=== PATIENT | female | born 1975 | race Hispanic/Latino ===

== ENCOUNTER 2021-06-23 21:47 | Inpatient (IN) | payer BC ==
--- OUTSIDE RECORDS SUMMARY | 2021-06-23 21:53 | XMS REPORT | Continuity of Care Document ---
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 [facility] 18:23:09 19:21:38 [facility] 2021-02-11 2021-02-11 Emergency [facility] [id number] [facility] 17:24:22 17:44:35 Health 2020-12-17 2020-12-17 Letter JULIO Bonner [id number] 00:00:00 00:00:00 (Out) Connie Zhang 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 350.1.13.10 REGIONAL 4.2.7.2.686 MATERNAL [id number] & CHILD 111 [facility] [place]-11-06 2020-11-06 Telephone JULIO Bonner [id number] 00:00:00 00:00:00 Connie O 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 350.1.13.10 [facility] 4.2.7.2.686 MATERNAL [id number] & CHILD 111 [facility] [place] 2020-03-06 2020-03-06 Emergency ANNA ROMAN [facility] [id number] [place] 00:00:00 00:00:[address] Results Test Description Test Time Test Comments Results Result Comments Source PT/INR 2021-05-25 15:42:00 Test Item Value Reference Range Interpretation Comme nts PT (test code = 5902-2) 15.7 See_Comment H [Au tomated message] The system which ge nerated this result transmit sandy reference range : 11.7 - 14.5 Seconds. T he reference range was not u sed to interpret this result as normal/abnormal . 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: Doc: 1975 Requested By: PUNEET LOPEZ Order Number: [id number] [place] MD: Mee Vincent MeasurementsIntervals [place] Rate: 101 P: CA: 0 QRS: 56QRSD: 112 T: 42QT: 381 QTc: 439 Interpretive StatementsATRIAL FIBRILLATION WITH RAPID VENTRICULAR RESPONSELOW QRS VOLTAGE IN PRECORDIAL LEADS [QRS DEFLECTION < 1.0 mVIN CHEST LEADS]MODERATE INTRAVENTRICULAR CONDUCTION DELAY [110+ ms QRS DURATION]NONSPECIFIC T-WAVE ABNORMALITYABNORMAL RHYTHM ECGReviewed by Electronically Signed On 05-25-2021 20:02:19CDT by [facility] Metabolic [id number] 05:32:00 Test Item Value Reference Range Interpretation Comments Sodium (test code = 141 mmol/L 668-976 4004-2) Potassium (test code = 3.8 mmol/L 3.5-5.1 2823-3) Chloride (test code = 93 mmol/L 98-107 L 2075-0) CO2 (test code = 45 mmol/L 21-31 H 71017407) Urea Nitrogen (test 8.0 mg/dL 7-25 code = 68635786) Creatinine (test code = 0.6 mg/dL 0.6-1.2 19198130) Glucose (test code = 98 mg/dL 70-110 85799745) Calcium (test code = 9.1 mg/dL 8.6-10.3 09926777) eGFR If Am >120 See_Comment [Automat ed message] (test code = 40918081) The s ystem which generated this result transmit sandy reference range : >=90 mL/min/1.7 3 m2. The reference r will was not used to interpret this result as normal/abnormal . eGFR If non- Am 111 See_Comment [Aut omated message] (test code = 18344531) The s ystem which generated this result transmit sandy reference range : >=90 mL/min/1.7 3 m2. The reference r will was not used to interpret this result as normal/abnormal . Anion Gap (test code = 3 mmol/L 5-16 L 73032580) Lab Interpretation Abnormal (test code = 46003-2) [facility]80[facility] 05:32:00 Test Item Value Reference Range Interpretation Comments Magnesium (test code = 44887397) 2.0 mg/dL 1.9-2.7 Lab Interpretation (test code = Normal 28662-8) [facility]/Vede0939-58-86 05:07:00 Test Item Value Reference Range Interpretation Comments WBC (test code = 6690-2) 7.0 K/uL 4.5-11 RBC (test code = 789-8) 4.31 See_Comment [Au tomated message] The system [employer] generated this result transmit sandy reference range : 4.20 - 5.40 M/u L. The reference r will was not used to interpret this result as normal/abnormal . Hemoglobin (test code = 8.3 g/dL 12-16 L 718-7) Hematocrit (test code = 34.3 % 37-47 L 4544-3) MCV (test code = 787-2) 79.6 fL 82-92 L MCH (test code = 785-6) 19.3 pg 27-32 L MCHC (test code = 786-4) 24.2 g/dL 32-36 L RDW (test code = 54.8 fL 36.4-46.3 H 78410-8) Platelet (test code = 294 K/uL 150-400 777-3) Mean Platelet Volume 10.4 fL 9.4-12.4 (test code = 99056-7) Percent NRBC (test code 0.0 % = 69709095) Neutrophil (test code = 71.0 % 34-70 H 770-8) Lymphs (test code = 15.9 % 20-50 L 736-9) Monocytes (test code = 10.3 % 5-12 5905-5) Eos (test code = 713-8) 1.6 % 0.7-5 Basos (test code = 0.9 % 0.1-1.2 706-2) Immature Granulocytes 0.3 % 0-0.5 (test code = 57178120) Neutrophils (Absolute) 4.97 K/uL 1.56-6.13 (test code = 48121072) Lymphs (Absolute) (test 1.11 K/uL 1.18-3.74 L code = 33981380) Monocytes(Absolute) 0.72 K/uL 0.24-0.36 H (test code = 30424942) Eos (Absolute) (test 0.11 K/uL 0.04-0.36 code = 14905521) Baso (Absolute) (test 0.06 K/uL 0.01-0.08 code = 92045771) Immature Grans (Abs) 0.02 K/uL 0-0.03 (test code = 57585959) Absolute NRBC (test code 0.00 K/uL = 33260839) Lab Interpretation (test Abnormal code = 33156-7) [facility] HospitalPregnancy Yptq6184-56-22 16:53:00 Test Item Value Reference Range Interpretation Comments (test code = 77563870) Negative Negative Lab Interpretation (test code = Normal 54152-8) [facility] HospitalPTT - every 6 hours x 24 krsel4283-94-02 16:09:00 Test Item Value Reference Range Interpretation Comments PTT (test code = 45.1 See_Comment H The recomme nded 38087578) therapuetic ran ge is an APTT 61-103 seconds which corresponds to 0.3-0.7 anti Xa u/ml. [Automated mess age] The system [employer] generated this result transmitted ref erence range: 23.9 - 3 6.0 Seconds. The reference range was not used to int erpret this result as normal/abnormal . Lab Interpretation (test Abnormal code = 11772-4) [facility] LUNG PERFUSION IMAGING [id number] 18:46:40IMPRESSION: 1. Scan findings strongly suggest that acute pulmonary embolic diseaseis not present. Probability according to PIOPED criteria cannot beapplied because of the limited projections obtained. A concurrentventilation study would not alter impression that acute PE is notpresent.2. Enlarged cardiac silhouette. Signed By: Crissy Dupree MD, 05/22/2021 6:46 PM Interface, Rad/Mammog In - 05/22/2021 6:51 PM CDT PERFUSION LUNG SCAN. REASONFOR EXAM PROVIDED WITH ORDER: PE suspected, low/intermediateprobability, positive D-dimer COMPARISONSTUDIES: DISCUSSION: No ventilation images were obtained because the study wasperformed and the patient room. The patient has a large body habitus andcould not be moved to an imaging table.Perfusion images of the lungs in the anterior and anterior obliqueprojections were obtained following intravenousadministration of 6 mCiof Tc-99m MAA. Distribution of tracer appears physiologic throughout the lungs. Thereare no segmental perfusion defects of any size. The contours of thelungs are well demarcated.The cardiac silhouette is enlarged.IMPRESSIONIMPRESSION: 1. Scan findings strongly suggest that acute pulmonary embolic diseaseis not present. Probability according to PIOPED criteria cannot beapplied because of the limited projections obtained. A concurrentventilation study would not alter impression that acute PE is notpresent.2. Enlarged cardiac silhouette.Signed By: Crissy Dupree MD, 05/22/2021 6:46 [facility]XccvlkC-Siygy0213-89-06 19:13:00 Test Item Value Reference Range Interpretation Comments D-Dimer (test code = 3.22 See_Comment H Values of 32395429) quantitative D- Dimer less than 0.40 ug/mL FEU have been reported to be associated with a low probability of deep vein thrombosis/pulm onary embolism. This test alone should no t be used to rule ou t DVT/PE. [Automa sandy message] The sy stem which generated this result transmit sandy reference range : 0.27 - 0.48 ug/mL FE U. The reference range was not used to int erpret this result as normal/abnormal . Lab Interpretation (test Abnormal code = 29807-9) [facility] HospitalCpxexjXchsuwuadg3747-88-84 18:55:00 Test Item Value Reference Range Interpretation Comments Color (test code = Yellow Colorless, Straw, 41983056) Yellow Clarity (test code = Clear Clear 79848243) Spec [place], Ur (test 1.012 1.001-1.035 code = 04521125) pH, Ur (test code = 6.0 5.0-8.0 11880743) Protein, Ur (test code Negative Negative mg/dL = 11319694) Glucose, Ur (test code Negative Negative mg/dL = 81121791) Ketone, Ur (test code = Negative Negative mg/dL 75051669) Bilirubin, Ur (test Negative Negative mg/dL code = 19861476) Nitrite, Ur (test code Negative Negative = 25330627) Leukocyte (test code = Negative Negative mg/dL 03452144) Blood, Ur (test code = 1+ Negative mg/dL A 85541655) RBC (test code = 5 See_Comment H [Automated message] 89527377) The system [employer] generated this result transmit sandy reference range : 0 - 4 /HPF. The reference range was not used to interpret this result as normal/abnormal . WBC (test code = 1 See_Comment [Automated message] 78430650) The system [employer] generated this result transmit sandy reference range : 0 - 5 /HPF. The reference range was not used to interpret this result as normal/abnormal . Epithelial Cell (test <1 See_Comment [Auto mated message] code = 79416928) The system which generated this result transmit sandy reference range : <=1 /HPF. The refer ence range was not u sed to interpret th is result as normal/abnormal . Mucous (test code = Present None seen /HPF A 72141329) Urobilinogen, Ur (test <1.0 See_Comment [Aut omated message] code = 92495970) The system which generated this result transmit sandy reference range : <1.0 EU/dL. The reference range was not used to interpret this result as normal/abnormal . 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: [id number]: 1975 Requested By: PUNEET LOPEZ Order Number: [id number] Reading MD: Mee Vincent MeasurementsIntervals [place] Rate: 115 P: CA: 0 QRS: 51QRSD: 116 T: 0QT: 169 QTc: 237 Interpretive StatementsATRIAL FLUTTER /TACHYCARDIA WITH RAPID VENTRICULAR RESPONSELOW QRS VOLTAGE IN PRECORDIAL LEADSMODERATE INTRAVENTRICULAR CONDUCTION DELAYNONSPECIFIC T-WAVE ABNORMALITYABNORMAL RHYTHM ECGReviewed by Electronically Signed On 05-22-2021 9:24:28 CDT by Mee LizDepartment of [facility]PhiladelphiaTRANSTHORACIC ECHO (TTE)2021-05-21 10:14:00TRANSTHORACIC ECHO (TTE) Transthoracic Echo Report GRAZYNA GOMEZ Age: 46 Gender:F : 1975 Exam Date: 05/21/2021 06:37 ExamLocation: [facility] Ordering Phys: PUNEET LOPEZ Referring Phys: Reading Phys: Mee Vincent MD Fellow Phys: Fellow Phys: Recovery Engineer: Taina Rene Reason For Exam: Indications: new afib, Other specified conduction disorders ICD-9 Codes: I45.89 Exam Type: TRANSTHORACIC ECHO (TTE) Procedure CPT: 65054 Addtional CPT: Ht (in): 67 BSA: 3.14 HR: 130 Rhythm: Atrial fibrillation Wt (lb): 423 BP: 111 / 68 Technical Quality: History: MEASUREMENTS Normal ranges based on 95% confidence intervals for adults, some normal patients may fall outside of this range especially when indexing for BSA 2D ECHO LV Diastolic Diameter PLAX 5.3 cm 4.2-5.8 (M) / 3.8-5.2 (F) LV Systolic Diameter PLAX 4.1 cm 2.5-4.0 (M) / 2.2-3.5 (F) LV Fractional Shortening PLAX 22.2 % IVS Diastolic Thickness 1.6 cm 0.6- 1.0 (M) / 0.6-0.9 (F) LVPW Diastolic Thickness 1.2 cm 0.6- 1.0 (M) / 0.6-0.9 (F) LV Relative Wall Thickness 0.53 <= 0.42 LVOT Diameter 2.3 cm Aortic Root Diameter 3.4 cm LA Systolic Diameter LX 3.7 cm LA AoRatio 1.1 LV Mass by linear method 316 g LV Mass by linear method Index 101 g/m2 FINDINGS Left Ventricle Normal left ventricular size. Mild to moderate concentric left ventricular hypertrophy. Grossly, LVEF appears to be around 40-50%. Poor endocardial visualization. Flattened septum in systole and diastole consistent with right ventricle pressure and volume overload. Cannot grade LV diastology due toatrial fibrillation. Right Ventricle Right ventricle not well visualized. Grossly appears dilated Right Atrium Right atrium not well visualized. Left Atrium Left atrium not well visualized. Grossly appears dilated IAS Mitral Valve Mitral leaflets mildly thickened. Aortic Valve Aorticvalve not well visualized. Tricuspid Valve Tricuspid valve not well visualized. Pulmonic ValvePulmonic valve not well visualized. Pericardium Minimal pericardial effusion (normal variant). A raimundo Normal size aortic root. IVC RA pressure is 5-10 mmHg. CONCLUSIONS Echocardiographic contrast was administered for better endocardial visualization. Normal left ventricular size. Mild to moderate concentric left ventricular hypertrophy. Grossly, LVEF appears to be around 40-50%. Poor endocardial visualization. Flattened septum in systole and diastole consistent with right ventricle pressure and volume overload. Cannot grade LV diastology due to atrial fibrillation. Right ventricle not well visualized. Grossly appears dilated. Compared to prior echo LVEF decreased and patient is now in atrial fibrillation. Both studies are technically difficult due to patient body habitus. Mee Vincent MD (Electronically Signed) Final Date: 21 May 2021 10:14 2D ECHO LV Diastolic Diameter PLAX 5.3 cm 4.2-5.8 (M) / 3.8-5.2 (F) LV Systolic Diameter PLAX 4.1 cm 2.5-4.0 (M) / 2.2-3.5 (F) LV Fractional Shortening PLAX 22.2 % IVS Diastolic Thickness 1.6 cm 0.6-1.0 (M) / 0.6-0.9 (F) LVPW Diastolic Thickness 1.2 cm 0.6-1.0 (M) / 0.6-0.9 (F) LV Relative Wall Thickness 0.53 <= 0.42 LVOT Diameter 2.3 cm Aortic Root Diameter 3.4 cm LA SystolicDiameter LX 3.7 cm LA Ao Ratio 1.1 LV Mass by linear method 316 g LV Mass by linear method Index 101 g/m2 [facility] [id number] 08:01:00 Test Item Value Reference Range Interpretation Comments Hemoglobin A1c (test code = 4548-4) 5.9 % 4.3-6.1 Estimated Average Glucose (test 123 mg/dL 70-110 H code = 02722673) Lab Interpretation (test code = Abnormal 25286-6) [facility] [id number] 06:23:00 Test Item Value Reference Range Interpretation Comments Cholesterol (test 69.0 mg/dL See_Comment [Automate d message] code = 2093-3) The system [facility] generated this result transmit sandy reference range : <=200.0. The reference range was not used to interpret this result as normal/abnormal . Triglyceride (test 70 mg/dL <150 code = 33875020) HDL (test code = 18.0 mg/dL See Reference 5-9) Range Narrative. LDL (test code = 37 mg/dL <100 Optimal: < 100.0 50976-8) mg/dLNear Optim al: 120-129 mg/dLBorderline : 130-159 mg/dLHi gh: 160-189 mg/dLVe ry High: >=190 mg/ dL Patient Fasting? Yes (test code = 16095561) [facility] HospitalCoronavirus, CoVID-19, [id number] 23:30:00 Test Item Value Reference Range Interpretation Comments COVID-19 Not Detected Not Detected INTERPRETATION: (SARS-COV-2) (test No detect able code = 16727-3) levels of SARS-CoV-2 Coronavirus (COVID-19) were present in this patient's sampl e by this test. A not detected result does not exclude the possibility of active infectio n with this virus due to other factors that ma y affect the results such as a poorly collected sample, viral titers below th e limit of detection of th e assay, and the infrequent possibility of inhibitors in the sample. Thi s result should b e interpreted in conjunction wit h clinical, radiographic, and other laboratory findings and should not be used as the danisha e indicator of active infectio n with SARS-CoV-2 Coronavirus (COVID-19). MARIO (test code = COMMENT: This MARIO) Slated Aptima SARS-CoV-2 molecular diagnostic assay utilizes Curator Of Manuscripts Mediated Amplification (TMA) technology to rapidly detect the SARS-CoV-2 (COVID-19) virus from respiratory samples. In accordance with the FDA's guidance document "Policy for Diagnostic Tests for Coronavirus Disease-2019 during the Public Health Emergency", this test was developed, and its performance characteristics were verified by the [facility] molecular diagnostics laboratory and is authorized for clinical diagnostic use. This laboratory is certified under the Clinical Laboratory Improvement Amendments (CLIA) as qualified to perform high complexity clinical laboratory testing. Lab Interpretation Normal (test code = 84460-5) [facility] [id number] 17:27:00 Test Item Value Reference Range Interpretation Comments Free T4 (test code = 19918676) 1.04 ng/dl 0.64-1.42 Lab Interpretation (test code = Normal 88056-0) [facility] HospitalOcvjvtPYS6462-35-04 17:25:00 Test Item Value Reference Range Interpretation Comments TSH (test code = 5.13 See_Comment If , please 16193383) see the followi ng reference range s (not verified by lab ): 1st Trimester: 0.05 -3.70 uIU/mL2nd Trime ster: 0.31 -4.35 uIU/ mL3rd Trimester: 0.41 - 5.18 uIU/mL [Automat ed message] The sy stem which generated this result transmit sandy reference range : 0.45 - 5.33 uIU/mL. The reference range was not used to int erpret this result as normal/abnormal . Lab Interpretation (test Normal code = 31042-3) [facility] VantageBeta-hCG, Mkfjkiortpjv5498-22-38 17:14:00 Test Item Value Reference Range Interpretation Comments hCG, Quantitative (test <1.0 See_Comment [Au tomated message] code = 66042505) The system which generated this result transmitted ref erence range: <5.0 mIU /mL. The reference r will was not used to interpret this result as normal/abnor mal. Lab Interpretation (test Normal code = 86234-6) [facility] LocawebB-Type Natriuretic Peptide (BNP)2021-05-20 17:12:00 Test Item Value Reference Range Interpretation Comments B Natriuretic Peptide 173 pg/mL See_Comment H [Auto mated message] (BNP) (test code = The syste m which 71021475) generated this result transmit sandy reference range : <=100. The refe rence range was not u sed to interpret th is result as normal/abnormal . Lab Interpretation (test Abnormal code = 17234-0) [facility] VantageTroponin [id number] 17:11:00 Test Item Value Reference Interpretation Comments Range Troponin I (test <0.03 See_Comment [Automated code = 78020082) message] Th e system which generated this result transmitted reference range : <0.04 ng/mL. Th e reference range was not used to interpret this result as normal/abnormal . MARIO (test code = Serum Troponin I MARIO) result from apparently healthy adults: < 0.04 ng/mL. Elevated Troponin >= 0.04 ng/mL is indicative of myocardial injury. Results should be interpreted in conjunction with other diagnostic tests and clinical information. When serial samples are obtained and troponin is considered in the clinical context of each patient, acute events such as myocardial infarction (IA) may be distinguished from other conditions causing myocardial injury. The reference cut off for apparently healthy pediatric population is not established, and therefore the pediatric troponin I result should be interpreted with caution. Heterophile antibodies, e.g. HAMA, in patient samples may cause erroneous results. Patients who have been regularly exposed to animals or have received immunoglobulin products may present with such interfering antibodies. Fibrin clot in specimen may cause falsely elevated values. Lab Interpretation Normal (test code = 30013-7) [facility]ST 1 [id number] 16:25:32IMPRESSION: Evidence of pulmonary vascular congestion. Mild to moderate left pleuraleffusion noted. T hese appear more prominent since prior study. Signed By: Francis Thompson MD, 05/20/2021 4:25 PM Interface,Rad/Mammog In - 05/20/2021 5:27 PM CDT EXAM: XRAY CHEST 1 VIEWINDICATION: cpCOMPARISON: 02/11/2021 FINDINGS: 1 view of the chest. TUBES and LINES: None.LUNGS: Lungs are low volume. Evidence of pulmonary vascular congestion.Partial accentuation from low lung volume.Increase opacification in the left lower lung may represent underlyingatelectasis or pleural effusion or underlying concomitant pneumonia isnot excludedPLEURA: No pneumothorax. Mild to moderate left pleural effusionHEART AND MEDIASTINUM: Mild prominence of the cardiac silhouetteispartly due to magnification from AP projection radiograph. Unremarkablevisualized aorta.BONES AND SOFT TISSUES: No acute osseous lesion. Soft tissues areunremarkable.IMPRESSIONIMPRESSION: Evidence ofpulmonary vascular congestion. Mild to moderate left pleuraleffusion noted. These appear more prominent since prior study.Signed By: Francis Thompson MD, 05/20/2021 4:25 [place] [address] [place] [id number] 15:54:3812 LEAD EKG FOR [facility] Test Date: [id number] Name: GRAZYNA GOMEZ Department: 5520Patient ID: [id number] Room: [facility] 09Gender: F Jumpbasting Machine Operator: [id number]: 1975 Requested By: NATHALIE Carrillo Number: [id number] Reading MD: nathan albert MeasurementsIntervals [place] Rate: 116 P: CA: 0 QRS: 26QRSD: 106 T: -6QT: 325 QTc: 394 Interpretive StatementsATRIAL FLU TTER/TACHYCARDIA WITH RAPID VENTRICULAR RESPONSELOW QRS VOLTAGE IN PRECORDIAL LEADS [QRS DEFLECTION< 1.0 mV IN CHEST LEADS]ABNORMAL RHYTHM ECGElectronically Signed On 05-20-2021 20:27:02 CDT by [facility] POCT TROPONIN I POC docked [id number] 15:42:00 Test Item Value Reference Range Interpretation Comments Troponin POC (test 0.01 ng/mL 0-0.08 Physician code = 75412049) Notified MARIO (test code = MARIO) <0.08 ng/mL Normal>=0.08 ng/mL Positive for Myocardial injuryNote: The >=0.08 ng/mL cTnI is at the 99th percentile of the non-AMI population. Lab Interpretation Normal (test code = 85228-0) [facility] BMP POC docked [id number] 15:36:00 Test Item Value Reference Range Interpretation Comments Sodium POC (test code = 142 mmol/L 136-145 55503429) Potassium POC (test code 3.9 mmol/L 3.5-5.1 = 15940995) Chloride POC (test code 97 mmol/L 98-107 L = 23955734) TCO2 POC (test code = 34 mmol/L 21-32 H Physic preeti Notified 80948034) Urea Nitrogen POC (test 9 mg/dL 7-18 code = 20125116) Glucose POC (test code = 157 mg/dL 74-106 H 85486932) Hemoglobin POC (test 14.3 g/dL 12-16 code = 28117243) Hematocrit POC (test 42.0 % 37-47 code = 20427753) Lab Interpretation (test Abnormal code = 92366-9) [facility] CREATININE POC docked [id number] 15:35:00 Test Item Value Reference Range Interpretation Comments Creatinine POC (test 0.6 mg/dL 0.6-1.3 Physici an Notified code = 46938422) eGFR If non- Am >90 See_Comment [Aut omated message] (test code = 26648344) The [employer] which generated this result transmit sandy reference range : >=90 mL/min/1.7 3 m2. The reference r will was not used to interpret this result as normal/abnormal . eGFR If Am (test >90 See_Comment [A utomated message] code = 45876468) The system which generated this result transmit sandy reference range : >=90 mL/min/1.7 3 m2. The reference r will was not used to interpret this result as normal/abnormal . Lab Interpretation (test Normal code = 78499-1) [facility] VBG POC docked [id number] 15:35:00 Test Item Value Reference Range Interpretation Comments pH, Ace POC (test code 7.40 7.33-7.43 = 92762611) pCO2,Ace POC (test code 53.3 See_Comment H [Au tomated = 35182901) message] The sy stem which generated this result transmitted reference range : 38 - 50 mmHg. The reference range was not used to interpret this result as normal/abnormal . PO2, Venous POC (BKR) 49 See_Comment L [Auto mated (test code = 87660419) messa ] The system which generated this result transmitted reference range : 50 - 75 mm Hg. The reference range was not used to interpret this result as normal/abnormal . Ionized Calcium POC 1.15 mmol/L 1.15-1.29 (test code = 89892731) HCO3, Ace POC (test 33 mmol/L 22-26 H code = 27308568) TCO2 POC (test code = 34 mmol/L 21-32 H 74108218) Base Excess Ace POC 6 mmol/L (test code = 84395377) Sample Type (test code IVEN Physi hermes Notified = 14420642) % Sat, Ace POC (test 83 % code = 73189371) Lab Interpretation Abnormal (test code = 18201-8) [place] [address] LEAD [id number] 15:23:0612 LEAD EKG FOR [facility] Test Date: 0005-10-92Llx Name: GRAZYNA GOMEZ Department: 5520Patient ID: [id number] Room: Gender: F Jumpbasting Machine Operator: [id number]: 1975 Requested By: NATHALIE Carrillo Number: [id number] Reading MD: nathan albert MeasurementsIntervals [place] Rate: 191 P: CA: 0 QRS: 30QRSD: 97 T: 0QT: 196 QTc: 294 Interpretive StatementsATRIAL FIBRILLATION WI TH RAPID VENTRICULAR RESPONSELOW QRS VOLTAGE IN PRECORDIAL LEADS [QRS DEFLECTION < 1.0 mV IN CHEST LEADS]MODERATE ST DEPRESSION [0.05+ mV ST DEPRESSION]CRITICAL TEST RESULTElectronically Signed On 05-20-2021 15:43:36 CDT by nathan [facility] GLUCOSE POC docked [id number] 13:06:00 Test Item Value Reference Range Interpretation Comments Glucose POC (test code = 08760757) 105 mg/dL 74-106 Lab Interpretation (test code = Normal 43839-2) [facility]az[facility]oAwl[facility]uxk8543-73-45 05:55:00 Test Item Value Reference Range Interpretation Comments Phosphorus (test code = 2777-1) 3.3 mg/dL 2.5-5 Lab Interpretation (test code = Normal 88531-5) [facility] HospitalDifferential, Ijvzdi9470-70-31 10:07:00 Test Item Value Reference Range Interpretation Comments Neutrophil (test code = 21420773) 80.0 % 34-70 H Lymphs (test code = 03482881) 14.0 % 20-50 L Monocytes (test code = 53390890) 6.0 % 5-12 Eos (test code = 96449971) 0.0 % 0.7-5 L Basos (test code = 32863978) 0.0 % 0.1-1.2 L Neutrophils (Absolute) (test code = 7.03 K/uL 1.56-6.13 H 37361896) Lymphs (Absolute) (test code = 1.23 K/uL 1.18-3.74 99693473) Monocytes(Absolute) (test code = 0.53 K/uL 0.24-0.36 H 60977107) Eos (Absolute) (test code = 0.00 K/uL 0.04-0.36 L 77116013) Baso (Absolute) (test code = 0.00 K/uL 0.01-0.08 L 48181681) Large Platelets (test code = 2+ None seen A 52696801) Platelet Clumps (test code = Present None seen A 78280983) Hypochromia (test code = 31437313) 3+ None seen A Ovalocyte (test code = 92298698) 2+ None seen A Stomatocyte (test code = 38845112) 2+ None seen A Cells Counted (test code = 38557903) Lab Interpretation (test code = Abnormal 30162-4) [facility] HospitalComprehensive Metabolic Hioyg8783-02-14 06:36:00 Test Item Value Reference Range Interpretation Comments Sodium (test code = 141 mmol/L 109-717 2568-2) Potassium (test code = 3.8 mmol/L 3.5-5.1 2823-3) Chloride (test code = 98 mmol/L 98-107 2075-0) CO2 (test code = 38 mmol/L 21-31 H 45458796) Glucose (test code = 113 mg/dL 70-110 H 57681108) Calcium (test code = 8.2 mg/dL 8.6-10.3 L 09169449) Urea Nitrogen (test 9.0 mg/dL 7-25 code = 02518428) Creatinine (test code = 0.6 mg/dL 0.6-1.2 34576538) Alkaline Phosphatase 38 U/L 34-104 (test code = 81322258) ALT (test code = 11 U/L 7-52 01338522) AST (test code = 12 U/L 13-39 L 52766578) Total Protein (test 6.8 g/dL 6-8.3 code = 2885-2) eGFR If non- Am >90 See_Comment [Aut omated message] (test code = 95225496) The s [employer] which generated this result transmit sandy reference range : >=90 mL/min/1.7 3 m2. The reference r will was not used to interpret this result as normal/abnormal . Albumin (test code = 3.1 g/dL 3.7-5.3 L 39505-0) Anion Gap (test code = 5 mmol/L 5-16 57413526) Lab Interpretation Abnormal (test code = 60055-0) [facility] HospitalBlood Gas, [id number] 04:33:00 Test Item Value Reference Range Interpretation Comments Temperature (test code 37.0 degree C = 72877090) pH, Venous (test code = 7.36 7.33-7.43 28514671) pCO2, Venous (test code 71.3 See_Comment HH [Au tomated = 46845032) message] The sy stem which generated this result transmitted reference range : 38 - 50 mm Hg. The reference range was not used to interpret this result as normal/abnormal . pO2, Venous (test code 54.8 See_Comment [Aut omated = 03293768) message] The sy stem which generated this result transmitted reference range : 50 - 75 mm Hg. The reference range was not used to interpret this result as normal/abnormal . Base Excess, Venous 13.2 mmol/L -2.5-2.5 H (test code = 03520326) HCO3, Venous (test code 39.2 mmol/L 22-26 H = 45517986) % Sat, Venous (test 86.6 % 60-85 H code = 29520241) Lab Interpretation Abnormal (test code = 30610-3) [facility] HospitalHgb/Vkj9319-81-23 22:29:00 Test Item Value Reference Range Interpretation Comments Hemoglobin (test code = 718-7) 7.5 g/dL 12-16 L Hematocrit (test code = 4544-3) 32.0 % 37-47 L Lab Interpretation (test code = Abnormal 79652-1) [facility] HospitalCrossmatch RBC Units, 1 Qyptt0399-25-01 12:35:00 Test Item Value Reference Range Interpretation Comments RBC UNITS (test code = compatible 95099687) Unit ABO Type (test code = O 90127429) Unit Rh Type (test code = POS 84854518) Product Code (test code = E0336 26057167) Unit Number (test code = [id number] 43604683) Unit Status (test code = transfused 09006615) ISBT Product Code (test code = U1721A76 59317) Blood Type (test code = 59371) 5100 Blood Expiration Date (test 559221428134 code = 51980) [facility] HospitalVitamin [id number] 08:32:00 Test Item Value Reference Range Interpretation Comments Vitamin B12 (test code 351 pg/mL See comment Lucila l: 180-914 = 61588654) pg/mLIntermitte nt: 145-180 pg/mLDeficient: <=145.0 pg/mL [facility] HealthLegionella Antigen, Lmace4829-33-39 08:20:00 Test Item Value Reference Range Interpretation Comments Legionella Ag, Ur (test code = Negative Negative 34617-8) Lab Interpretation (test code = Normal 16696-9) [facility] HospitalStrep Pneumo Ag, Wvgzo6497-04-69 01:40:00 Test Item Value Reference Range Interpretation Comments S. pneumo Ur Antigen (test code = Negative Negative 15965-9) Lab Interpretation (test code = Normal 29522-2) [facility] HospitalTRANSTHORAC[facility] (TTE)2021-02-13 13:02:00TRANSTHORACIC ECHO (TTE) Transthoracic Echo Report GRAZYNA GOMEZ Age: 45 Gender:F : 1975 Exam Date: 02/13/2021 08:08 ExamLocation: [facility] Ordering Phys: MARBELLA ALLAN Referring Phys: [id number] Reading Phys: Mee Vincent MD Fellow Phys: Fellow Phys: Recovery Engineer:Isma Nunez Reason For Exam: Indications: Obstructive sleep apnea, rule out pulmonary hypertension, Other secondary pulmonary hypertension, Morbid (severe) obesity due to excess calories ICD-9 Codes: I27.2 E66.01 Exam Type: TRANSTHORACIC ECHO (TTE) Procedure CPT: 35395 Addtional CPT: Ht (in): 67 BSA: 3.38 HR: 81 Rhythm: Sinus rhythm Wt (lb): 486 BP: 121 / 76 Technical Quality: Very technically difficult study History: MEASUREMENTS Normal ranges based on 95% confidence intervals for adults, some normal patients may fall outside of this range especially when indexing for BSA 2D ECHO LV Diastolic Diameter PLAX 5.9 cm 4.2-5.8 (M) / 3.8-5.2 (F) LV Systolic Diameter PLAX 3.7 cm 2.5-4.0 (M) / 2.2-3.5 (F) LV Fractional Shortening PLAX 37.4 % IVS Diastolic Thickness 1.2 cm 0.6-1.0 (M) / 0.6-0.9 (F) LVPW Diastolic Thickness 1.4 cm 0.6- 1.0 (M) / 0.6-0.9 (F) LV Relative Wall Thickness 0.45 <= 0.42 Aortic Root Diameter 3.5 cm LV Mass by linear method 345 g LV Mass by linear method Index 102 g/m2 FINDINGS Left Ventricle Right Ventricle Right Atrium Left Atrium IAS Mitral Valve Aortic Valve Tricuspid Valve Pulmonic Valve Pericardium Aorta Normal size aortic root. IVC CONCLUSIONS Limited study. Very technically difficult due to patient body habitus. Grossly, normal LV size and function. LVEF >50%. No obvious pericardial effusion. Unable to adequately comment further. Mee Vincent MD (Electronically Signed) Final Date: 13 February 2021 13:01 2D ECHO LV Diastolic Diameter PLAX 5.9 cm 4.2-5.8 (M) / 3.8-5.2 (F) LV Systolic Diameter PLAX 3.7 cm 2.5- 4.0 (M) / 2.2-3.5 (F) LV Fractional Shortening PLAX 37.4 % IVS Diastolic Thickness 1.2 cm 0.6-1.0 (M) / 0.6-0.9 (F) LVPW Diastolic Thickness 1.4 cm 0.6-1.0 (M) / 0.6-0.9 (F) LV Relative Wall Thickness 0.45 <= 0.42 Aortic Root Diameter 3.5 cm LV Mass by linear method 345 g LV Mass by linear method Index 102 g/m2 [facility] Ffeipsqlkv9061-14-39 06:58:00 Test Item Value Reference Range Interpretation Comments Specimen Expiration (test 02/16/2021 23:59 code = 81952700) ABO/RH (test code = O POS 39822216) Antibody Screen (test code = NEG 27424379) [facility] HospitalABO/RH [id number] 06:57:00 Test Item Value Reference Range Interpretation Comments ABO/RH (test code = 84059089) O POS [facility] Abraapm1416-71-21 03:07:00 Test Item Value Reference Range Interpretation Comments TIBC (test code = 470 ug/dL 250-450 H Result 2500-7) unreliable: Result above instrument usable range. UIBC (test code = 443 ug/dL 131-425 H Result 2501-5) unreliable: Result above instrument usable range. Iron (test code = 27 ug/dL 27-159 2498-4) % Iron Sat (test code 6 % 15-55 L = 2502-3) MARIO (test code = MARIO) Performed at: [address] [place] [address] [id number] Director: Denis Lugo MD, Phone: [phone] Lab Interpretation Abnormal (test code = 30926-2) [facility] HospitalIynvbkWsoqglql5601-66-66 05:33:00 Test Item Value Reference Range Interpretation Comments Ferritin (test code = 55755232) <10.0 11-306.8 L Lab Interpretation (test code = Abnormal 18170-1) [facility] HospitalHepatitis C Virus Ab [id number] 05:27:00 Test Item Value Reference Range Interpretation Comments Hepatitis C Virus (HCV) Antibody Negative Negative (test code = 77131-2) Lab Interpretation (test code = Normal 76074-5) [facility] HospitalHIV-1/HIV-2 Routine Adskxukgl6953-89-84 05:26:00 Test Item Value Reference Range Interpretation Comments HIV Ag/Ab Combo (test code = Negative Negative 94107-8) Lab Interpretation (test code = Normal 12438-4) [facility] HospitalU/S ABDOMEN GNJGSVN5494-18-50 19:55:26IMPRESSION:Limited evaluation due to bowel gas and body habitus. In light of this: 1. Cholelithiasis without sonographic evidence of acute cholecystitis.2. Hepatomegaly with increased echogenicity ofthe liver suggestive ofsteatosis. Dictated By: Elia Tobar MD, 02/11/2021 7:46 PM I have reviewed the study and agree with the findings in this report. Signed By: Francis Thompson MD, 02/11/2021 7:55 PM Interface, Rad/Mammog In - 02/11/2021 8:00 PM CDT EXAM: Right Upper Quadrant UltrasoundINDICATION: ruq abd pain COMPARISON: None. TECHNIQUE: Transverse and longitudinal images of the right upper abdomenwere obtained. FINDINGS: Limited evaluation due to bowel gas shadowing and body habitus. In lightof this limitation:Liver: Size: 27 cm in the right midclavicular line, enlarged Appearance: Increased echogenicity, smooth contour Mass: No focal massesGallbladder: Stones/Sludge: Numerous shadowing gallstones Wall: 0.3 cm Appearance: No pericholecystic fluid or hydrops. Sonographic Brooks's Sign: NegativeBile Ducts: Intrahepatic Ducts: No dilatation Extrahepatic Ducts: Common bile duct measures 0.6 cm, nodilatationPancreas: Not evaluated due to bowel gas.Right Kidney: Size: 13.8 cm Echogenicity: Normal Parenchymal thickness: Normal Collecting system: No hydronephrosis Stones: None Cyst/Mass: NoneVessels: Aorta: Visualized portions are normal Inferior Vena Cava: V isualized portions are normal Main Portal Vein: 1.4 cm, mildly increased in size size withhepatopetal flow.Free Fluid: No ascites or pleural effusionIMPRESSIONIMPRESSION:Limited evaluation due to bowel gas and body habitus. In light of this:1. Cholelithiasis without sonographic evidence of acu te cholecystitis.2. Hepatomegaly with increased echogenicity of the liver suggestive ofsteatosis.Dictated By: Elia Tobar MD, 02/11/2021 7:46 PMI have reviewed the study and agree with the findings in this report.Signed By: Francis Thompson MD, 02/11/2021 7:55 PMHar[facility] DmwrggUsbuxe0563-11-82 18:55:00 Test Item Value Reference Range Interpretation Comments Lipase (test code = 20688957) 24 U/L 11-82 Lab Interpretation (test code = Normal 54812-6) [facility] HospitalLiver Gpqnqta8949-66-19 18:55:00 Test Item Value Reference Range Interpretation Comments Bilirubin, Total (test code = 1.5 mg/dL 0.2-1.2 H 2885-2) Alkaline Phosphatase (test code = 44 U/L 34-104 38224917) AST (test code = 28232748) 13 U/L 13-39 Direct Bilirubin (test code = 0.6 mg/dL 0-0.2 H 1968-7) ALT (test code = 99437016) 9 U/L 7-52 Albumin (test code = 88629-6) 3.3 g/dL 3.7-5.3 L Lab Interpretation (test code = Abnormal 84450-8) [facility] HospitalXR CHEST 2 [id number] 18:34:30IMPRESSION: Limited exam. Opacified left lung base could represent atelectasis, pneumonia, and/oreffusion in the appropriate clinical context. Chest CT with contrast canbetter characterize this, if clinically indicated. Dictated By: Percy Cho MD, 02/11/2021 6:00 PM I have reviewed the study and agreewith the findings in this report. Signed By: Francis Thompson MD, 02/11/2021 6:34 PM Interface, Rad/MammogIn - 02/11/2021 6:39 PM CDT EXAMINATION: XRAY CHEST 2 VIEWS INDICATION: cough HISTORY: Patient is a 45 year old female with history of bronchitis,asthma, pneumonia, and morbid obesityCOMPARISON: None FINDINGS:Limited exam due to body habitus.TUBES, LINES, AND DEVICES: None.LUNGS AND PLEURA: Low lung volumes. The left lung base is opacified,silhouetting the left hemidiaphragm and left heart border. No rightpleural effusion. No pneumothorax. HEART AND MEDIASTINUM: Enlarged cardiac silhouette.BONES AND SOFT TISSUES: No acute findings.UPPER ABDOMEN: No free air under the diaphragm.IMPRESSIONIMPRESSION: Limited exam.Opacified left lung base could represent atelectasis, pneumonia, and/oreffusion in the appropriate clinical context. 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
[2021-06-23] MEDS ORDERED: ONDANSETRON 4 MG/2 ML VIAL ONE (21:59)
[2021-06-23] MEDS ORDERED: KETAMINE HCL 500 MG/5 ML VIAL ONE (21:59)
[2021-06-23 23:47] LABS: Arterial Blood Carboxyhemoglob 2.2 % (0-1.5); Blood Gas Oxyhemoglobin 82.5 % (94-97); Blood O2 Saturation 85.1 % (92-98.5)
[2021-06-24 01:37] LABS: Protime INR 2.12
[2021-06-24 01:43] LABS: Absolute Lymphocytes (CBC) 0.7 K/uL (0.7-4.9); Hematocrit 39.7 % (36.0-45.0); Lymphocytes % 8.8 % (15.3-44.8); MPV 8.5 fL (7.6-11.3); RBC Red Blood Cell Count 5.21 M/uL (3.86-4.86)
[2021-06-24 01:52] LABS: ALT/SGPT 23 U/L (12-78); AST/SGOT 25 U/L (15-37); Albumin 3.2 g/dL (3.4-5.0); Alkaline Phosphatase 63 U/L (45-117); BUN Blood Urea Nitrogen 14 mg/dL (7-18); Bicarbonate 41 mmol/L (21-32); Bilirubin Direct 0.8 mg/dL (0-0.2); Bilirubin Total 1.6 mg/dL (0.2-1.0); Glucose Level 109 mg/dL (74-106); Magnesium 2.2 mg/dL (1.8-2.4); NT PRO-BNP 2688 pg/mL (<125); Potassium 4.4 mmol/L (3.5-5.1); Sodium Level 139 mmol/L (136-145); Troponin (Emerg Dept Use Only) 0.11 ng/mL (0.0-0.045)
[2021-06-24 01:57] LABS: Urine Blood 3+ (Negative); Urine Glucose Negative (Negative); Urine Protein 3+ (Negative); Urine Specific Gravity >=1.030 (1.005-1.030); Urine pH 5.5 (5.0-7.0)
[2021-06-24] MEDS ORDERED: FUROSEMIDE 100 MG/10 ML VIAL IV ONE (01:58)
[2021-06-24] MEDS ORDERED: METOPROLOL TARTRATE 5 MG/5 ML INJ IV ONE (01:59)
[2021-06-24] MEDS ORDERED: DIGOXIN 0.25 MG/ML AMP ONE (01:59)
[2021-06-24] MEDS ORDERED: RSI MEDICATION KIT IV ONE (02:22)
[2021-06-24] MEDS ORDERED: propofoL 1,000 MG/100 ML VIAL IV ONE ×6 (02:23→20:28)
--- NOTE | 2021-06-24 02:23 | ER ---
Nurse's Notes [facility] Name: Charity Jacob Age: 46 yrs Sex: Female : 1975 Arrival Date: 06/23/2021 Time: 22:20 Bed 6 Private MD: Diagnosis: Unspecified atrial flutter;Unspecified combined systolic (congestive) and diastolic (congestive) heart failure;Acute respiratory failure with hypercapnia;Altered mental status, unspecified Presentation: 06/23 22:22 Chief complaint: EMS states: they were toned out for report of pt with lethargy on bb their arrival pt O2 sat was 85% on 4 Lpm via NC. Coronavirus screen: difficulty breathing, Client presents with at least one sign or symptom that may indicate coronavirus-19. Standard/surgical mask placed on the client. Ebola Screen: No symptoms or risks identified at this time. Initial Sepsis Screen:. 22:22 Method Of Arrival: EMS: [facility] bb 22:22 Initial Sepsis Screen: Does the patient meet any 2 criteria? RR > 20 per min. Altered bb Mental Status. HR > 90 bpm. Yes Does the patient have a suspected source of infection? Yes: Skin breakdown/wound If YES to both, name of provider notified: Joe GUIDO. Risk Assessment: Do you want to hurt yourself or someone else? Unable to obtain. Onset of symptoms is unknown. 22:22 Acuity: MAIKEL 1 bb Triage Assessment: 06/24 00:29 General: Appears distressed, obese, Behavior is responsive to painful stimuli. Smells bb of urine. Pain: Unable to use pain scale. responsive to painful stimuli. Neuro: Level of Consciousness is obtunded. Cardiovascular: Heart tones S1 S2 present. Respiratory: Reports pt is responsive to painful stimuli Onset: The symptoms/episode began/occurred at an unknown time. the patient has moderate shortness of breath. GI: Abdomen is obese. Derm: Skin multiple sores over body. Musculoskeletal: pt is morbidly obese able to move extremities. 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 - Social history:: Smoking status: unknown. Screenin:36 Abuse screen: Denies threats or abuse. Nutritional screening: No deficits noted. bb Tuberculosis screening: No symptoms or risk factors identified. Fall Risk None identified. Assessment: 06/23 22:20 Cardiovascular: Heart tones S1 S2 present. Respiratory: Airway is patent Respiratory bb effort is labored. 22:20 Cardiovascular: Rhythm is atrial fibrillation. bb 23:00 Reassessment: No changes from previously documented assessment. pt on hospital bed bb Bipap in place. 06/24 01:00 Reassessment: initial labs hemolyzed Dinh Crook CHILD CAREGIVER at bedside for midline placement. bb 01:00 Reassessment: Yarelis RN, Dinh Crook CHILD CAREGIVER, Ludivina Lau RN, Cassia Lopez RN, and [facility] tech bb at bedside pt cleaned of incontinence, linen changed, brar place by Ludivina HORTA urine sample collected and sent to lab. Decision for intubation made and pt moved to room 3 for intubation, awaiting arrival of anesthesiologist Dr Nuñez. 02:17 Reassessment: Dr Nuñez at bedside for intubation with yarelis RN, Herlinda RT tech, Wyatt RT bb lily, Jovana RN. Pt unresponsive with labored respirations and tachypneic. 03:19 Reassessment: Dinh Crook CHILD CAREGIVER notified pt BP 51/40 new orders received levophed started bb see JAN. Reassessment: Dinh Crook CHILD CAREGIVER notified pt not sedated new orders received pt medicated see JAN. 03:20 Reassessment: pt awake nodded head in response to questions before medicated. bb 04:12 Reassessment: pt to CT scan via bed on monitor, accompanied by Ludivina Sevilla RN, bb [facility] tech. Vital Signs: 06/23 22:27 BP 125 / 99; Pulse 142; Resp 32; Temp 93.6(A); Pulse Ox 96% on Non-rebreather mask; oe 06/24 02:10 BP 145 / 124; Pulse 115; Resp 28 S; Temp 98.2(C); Pulse Ox 94% on 15% Non-rebreather bb mask; 02:20 BP 105 / 56; Pulse 102; Resp 20 S; Pulse Ox 97.7% on 100% FiO2 ETT vent; bb 02:40 BP 93 / 66; Pulse 98; Resp 20 A; Pulse Ox 100% on 100% FiO2 ETT vent; bb 03:00 BP 71 / 56; Pulse 98; Resp 20 A; Pulse Ox 100% on R/A; bb 03:02 Weight 204.12 kg (R); bb 03:10 BP 51 / 40; Pulse 98; Resp 20; Pulse Ox 100% on 100% FiO2 ETT vent; bb 05:23 BP 139 / 98; Pulse 94; Resp 22; Pulse Ox 100% on R/A; ea ED Course: 06/23 22:20 Patient arrived in ED. ds1 22:20 Arm band placed on Patient placed in the treatment room, on hospital bed, RT at bedside bb for placement of Bipap. 22:22 Radha Candelaria, RULA is Primary Nurse. bb 22:26 Joe Rod PA is PHCP. cp 22:26 Stanislav Merchant MD is Attending Physician. cp 23:06 XRAY Chest (1 view) In Process Unspecified. EDMS 23:50 Inserted saline lock: 22 gauge in right upper arm, using aseptic technique. Blood bb collected. Missed attempt(s): 18 gauge in right antecubital area. Bleeding controlled, band aid applied, catheter tip intact. 06/24 00:29 Triage completed. bb 00:36 Patient has correct armband on for positive identification. Bed in low position. Call bb light in reach. Side rails up X2. equipment monitor phototypesetting on. Pulse ox on. NIBP on. 01:00 Accessed peripheral vein via ultrasound, utilizing dynamic ultrasound technique using bb 18G Sureflo IV catheter per hospital protocol. Clean \T\ dry. Good blood return. Flushes easily. placed by Dinh Crook NP. 01:00 Lab(s) recollected, by ED staff, sent to lab. bb 01:50 Brar cath inserted, using sterile technique, 18 Fr., by me, balloon inflated, to ea gravity drainage, returned cloudy urine. Patient tolerated well. 02:17 Assisted provider with intubation using 7.5 mm ETT via oral route. ET tube secured at bb 22cm at the Set up intubation tray. Placement verified by CO2 detector w/ + color change, auscultating bilateral breath sounds, CXR, Assist provider with nosebleed control. 02:23 Initiated transfer at [facility] with Kailee Guy. Stated she would check beds and call tt3 back. 02:30 NGT: inserted 16 Fr. via left nare. verified return of gastric contents, Placement bb verified by X-ray, to intermittent suction. Returned gastric contents. Patient tolerated well. 02:33 Kailee Guy called back and stated that they would have to decline the transfer request tt3 as all campuses are at capacity. 02:33 Initiated transfer at [facility] with Lachelle. tt3 02:38 Lachelle with [facility] stated that they would have to decline due to capacity at all tt3 campuses. 02:38 Initiated transfer at [facility] [place] [place] with Izabel Stanley. Stated she would call back. tt3 02:42 CXR XRAY In Process Unspecified. EDMS 02:49 Izabel Jaden with [facility] [place] called back and stated that they would have to tt3 decline the transfer due to capacity. 02:55 Munira Tobar MD is Hospitalizing Provider. cp 07:17 Patient admitted, IV remains in place. ea 06/26 15:04 Primary Nurse role handed off by Radha Candelaria RN 07/03 02:01 Attending Physician role handed off by Stanislav Merchant MD [email or web address] 02:01 PHCP role handed off by Joe Rod PA [email or web address] Administered Medications: 06/24 01:50 Drug: Lasix (furosemide) 60 mg Route: IVP; Site: right antecubital; ea 03:03 Follow up: Response: No adverse reaction bb 01:50 Drug: Digoxin 0.5 mg Route: IVP; Site: right antecubital; ea 03:03 Follow up: Response: No adverse reaction bb 01:50 Drug: Lopressor (metoprolol) 5 mg Route: IVP; Site: right forearm; ea 03:04 Follow up: Response: No adverse reaction bb 02:14 Drug: Propofol 100 mg Route: IVP; Site: right upper arm; bb 03:04 Follow up: Response: No adverse reaction bb 02:15 Drug: Propofol 100 mg Route: IVP; Site: right antecubital; bb 03:04 Follow up: Response: No adverse reaction bb 02:15 Drug: Succinylcholine 140 mg Route: IVP; Site: right upper arm; bb 03:04 Follow up: Response: No adverse reaction bb 02:32 CANCELLED (Physician Discretion): Lovenox (enoxaparin) 1 mg/kg Sub-Q once cp 02:40 Drug: NS 0.9% 1000 ml Route: IV; Rate: 20 ml/hr; Site: right upper arm; bb 07:17 Follow up: IV Status: Completed infusion ea 02:40 Drug: Propofol 5 mcg/kg/min Route: IV; Rate: calculated rate; Site: right upper arm; bb 07:17 Follow up: IV Status: Completed infusion ea 03:18 Drug: Levophed (norepinephrine) (4 mg/250 mL D5W 4 mcg/min Route: IV; Rate: calculated bb rate; Site: right upper arm; 07:18 Follow up: IV Status: Completed infusion ea 03:30 Drug: fentaNYL (PF) 50 mcg Route: IVP; Site: right forearm; ea 07:18 Follow up: Response: No adverse reaction ea 06:17 Drug: LevaQUIN (levofloxacin) 750 mg Volume: 150 ml; Route: IVPB; Infused Over: 90 ea mins; Site: left antecubital; 07:18 Follow up: IV Status: Completed infusion ea 06:18 Drug: Lovenox (enoxaparin) 100 mg Route: Sub-Q; Site: abdomen; ea 07:17 Follow up: Response: No adverse reaction ea Output: 07:17 Urine: 2300ml (Brar); Total: 2300ml. ea Ventilator: 02:20 Fi02: 100%; Rate: 20min; T.V.: 580ml; ET tube: 7.5 fr (Oral); bb Outcome: 02:23 ER care complete, transfer ordered by MD. cp 02:56 Decision to Hospitalize by Provider. cp 05:24 Condition: stable ea 05:24 Instructed on the need for admit. 07:17 Admitted to ER Hold. Please see [facility] for further documentation. ea 07/02 22:57 Patient left the ED. [id number] 08 12:43 Patient left the ED. hb Signatures: Dispatcher [employer] EDMS Elizabeth Flores Demi ds1 Radha Candelaria RN RN Joe Deutsch PA PA cp Baxter, Heather, RN RN Reed Fatima RN RN jb4 Que Salazar Elena, RN RN Lacey Mina 2 Dakota Rae tt3 Corrections: (The following items were deleted from the chart) 06/24 00:38 00:37 Respiratory: Respiratory effort is bb bb 02:23 02:22 BP 105 / 56; Pulse 91bpm; Resp 18bpm; Pulse Ox 98%; Temp 98F Catheter; ea ea 02:55 02:17 Reassessment: Respiratory and provider at bedside, pt intubated, 7.5 ETT, 22 at bb teeth ea 02:57 02:22 BP 105 / 56; Pulse 91bpm; Resp 20bpm; Pulse Ox 98% ET / Ventilator; Temp 98F bb Catheter; ea
--- NOTE | 2021-06-24 02:24 | EDPHYS ---
Physician Documentation [facility] Name: Charity Jacob Age: 46 yrs Sex: Female : 1975 Arrival Date: 06/23/2021 Time: 22:20 Bed 6 Private MD: ED Physician HPI: 06/23 22:40 This 46 yrs old Female presents to ER via EMS with complaints of Breathing cp Difficulty. 22:40 The patient has shortness of breath at rest. cp 22:40 Onset: The symptoms/episode began/occurred at an unknown time. EMS toned out for cp patient by neighbor after patient being found to be lethargic, confused. Patient unable to give history of present illness.. 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 - Social history:: Smoking status: unknown. ROS: 06/23 22:50 Constitutional: Negative for fever. cp 22:50 Unable to obtain ROS due to altered mental status. cp Exam: 22:55 Head/Face: Normocephalic, atraumatic. cp 22:55 Constitutional: The patient appears non-toxic, well developed, in obvious distress, moderately distressed, unkempt, morbid obesity 22:55 Eyes: Periorbital structures: swelling, that is mild, bilaterally, Pupils: equal, round, and reactive to light and accomodation, Conjunctiva: normal, no exudate, no injection, Sclera: no appreciated abnormality, Lids and lashes: edema, bilaterally. 22:55 Neck: ROM/movement: is normal, is supple, no meningismus, no nuchal rigidity. 22:55 Chest/axilla: Inspection: normal, Palpation: crepitus, is not appreciated, tenderness, is not appreciated. 22:55 Cardiovascular: Rate: tachycardic, Rhythm: regular, Edema: ankle edema, that is mild, JVD: is not appreciated. 22:55 Respiratory: moderate respiratory distress is noted, Respirations: shallow respirations, that is moderate, Breath sounds: decreased breath sounds, that are moderate, stridor, is not appreciated, wheezing: is not appreciated. 22:55 Abdomen/GI: Inspection: obese Palpation: abdomen is soft and non-tender, in all cp quadrants. 22:55 Neuro: Orientation: to person, Mentation: able to follow commands, slow to respond. 06/24 00:37 ECG was reviewed by the Attending Physician. cp Vital Signs: 06/23 22:27 BP 125 / 99; Pulse 142; Resp 32; Temp 93.6(A); Pulse Ox 96% on Non-rebreather mask; oe 06/24 02:10 BP 145 / 124; Pulse 115; Resp 28 S; Temp 98.2(C); Pulse Ox 94% on 15% Non-rebreather bb mask; 02:20 BP 105 / 56; Pulse 102; Resp 20 S; Pulse Ox 97.7% on 100% FiO2 ETT vent; bb 02:40 BP 93 / 66; Pulse 98; Resp 20 A; Pulse Ox 100% on 100% FiO2 ETT vent; bb 03:00 BP 71 / 56; Pulse 98; Resp 20 A; Pulse Ox 100% on R/A; bb 03:02 Weight 204.12 kg (R); bb 03:10 BP 51 / 40; Pulse 98; Resp 20; Pulse Ox 100% on 100% FiO2 ETT vent; bb 05:23 BP 139 / 98; Pulse 94; Resp 22; Pulse Ox 100% on R/A; ea Ventilator: 02:20 Fi02: 100%; Rate: 20min; T.V.: 580ml; ET tube: 7.5 fr (Oral); bb MDM: 06/23 22:29 Patient medically screened. cp 23:00 Differential diagnosis: CHF exacerbation, Myocardial Infarction pneumonia, pulmonary cp edema, Pulmonary Embolism Sepsis Unstable Angina respiratory failure. 06/24 03:00 Data reviewed: vital signs, nurses notes, lab test result(s), EKG, radiologic studies, cp plain films, I have discussed the patient's presentation/case with the attending Emergency Department Physician;. 03:00 Test interpretation: by ED physician or midlevel provider: ECG, plain radiologic cp studies. 06/23 22:28 Order name: Basic Metabolic Panel cp 06/23 22:28 Order name: CBC with Diff; Complete Time: 02:58 cp 06/24 02:58 Interpretation: Normal except: RBC 5.21; HGB 11.3; MCV 76.2; MCH 21.7; MCHC 28.4; RDW cp 27.6; YANICK% 79.2; LYM% 8.8. 06/23 22:28 Order name: LFT's; Complete Time: 02:00 cp 06/24 02:58 Interpretation: Normal except: BILIT 1.6; BILID 0.8; TP 9.0; ALB 3.2; GLOB 5.8; A/G 0.6.cp 06/23 22:28 Order name: Magnesium; Complete Time: 02:00 cp 06/23 22:28 Order name: NT PRO-BNP; Complete Time: 02:00 cp 06/24 02:58 Interpretation: Abnormal: NT PRO-BNP 2688. cp 06/23 22:28 Order name: PT-INR; Complete Time: 01:51 cp 06/23 22:28 Order name: Troponin (emerg Dept Use Only); Complete Time: 02:00 cp 06/23 22:28 Order name: Urine Microscopic Only; Complete Time: 06:16 cp 06/23 22:28 Order name: Influenza Screen (a \T\ B); Complete Time: 01:39 cp 06/23 22:28 Order name: Basic Metabolic Panel; Complete Time: 02:00 EDMS 06/23 22:29 Order name: Procalcitonin; Complete Time: 02:26 cp 06/23 22:29 Order name: Lactate; Complete Time: 02:00 cp 06/23 22:29 Order name: ABG; Complete Time: 23:51 cp 06/23 22:29 Order name: Blood Culture Adult (2) cp 06/24 00:24 Order name: SARS-COV-2 RT PCR; Complete Time: 01:39 EDMS 06/24 00:31 Order name: C-Reactive Protein; Complete Time: 02:00 EDMS 06/24 01:57 Order name: Urine Dipstick-Ancillary; Complete Time: 02:00 EDMS 06/24 01:58 Order name: Urine --Ancillary (enter results); Complete Time: 02:58 tt3 06/24 02:41 Order name: Manual Differential; Complete Time: 02:58 EDMS 06/24 03:01 Order name: Urine Culture EDMS 06/24 05:29 Order name: ABG ea 06/24 07:55 Order name: ABG Arterial Blood Gas; Complete Time: 08:59 EDMS 06/24 07:59 Order name: ABG Arterial Blood Gas; Complete Time: 08:59 EDMS 06/24 15:20 Order name: CBC with Automated Diff; Complete Time: 23:45 EDMS 06/24 15:38 Order name: Comprehensive Metabolic Panel; Complete Time: 23:45 EDMS 06/24 15:38 Order name: Troponin I; Complete Time: 23:45 EDMS 06/24 15:38 Order name: Lipid Profile; Complete Time: 23:45 EDMS 06/24 15:38 Order name: T4 Free; Complete Time: 23:45 EDMS 06/24 15:38 Order name: Magnesium; Complete Time: 23:45 EDMS 06/24 15:38 Order name: Thyroid Stimulating Hormone; Complete Time: 23:45 EDMS 06/24 16:41 Order name: CBC with Manual Differential; Complete Time: 23:45 EDMS 06/24 16:55 Order name: Comprehensive Metabolic Panel; Complete Time: 23:45 EDMS 06/24 16:55 Order name: Troponin I; Complete Time: 23:45 EDMS 06/24 16:55 Order name: Lipid Profile; Complete Time: 23:45 EDMS 06/24 16:55 Order name: T4 Free; Complete Time: 23:45 EDMS 06/24 16:55 Order name: Magnesium; Complete Time: 23:45 EDMS 06/24 16:55 Order name: Thyroid Stimulating Hormone; Complete Time: 23:45 EDMS 06/24 18:26 Order name: CBC Smear Scan; Complete Time: 23:45 EDMS 06/24 19:44 Order name: ABG Arterial Blood Gas; Complete Time: 23:45 EDMS 06/25 05:31 Order name: Urinalysis EDMS 06/25 05:40 Order name: Urine Microscopic Only EDMS 06/25 05:40 Order name: ABG Arterial Blood Gas EDMS 06/25 06:52 Order name: Gram Stain--Aerobic Bottle EDMS 06/25 14:44 Order name: Comprehensive Metabolic Panel EDMS 06/25 14:44 Order name: Magnesium EDMS 06/25 14:54 Order name: CBC with Automated Diff EDMS 06/25 14:54 Order name: CBC Smear Scan EDMS 06/26 05:52 Order name: ABG Arterial Blood Gas EDMS 06/26 17:51 Order name: Comprehensive Metabolic Panel EDMS 06/26 17:51 Order name: Magnesium EDMS 06/26 18:34 Order name: CBC with Automated Diff EDMS 06/27 05:42 Order name: ABG Arterial Blood Gas EDMS 06/27 08:46 Order name: CBC with Automated Diff EDMS 06/27 08:59 Order name: Comprehensive Metabolic Panel EDMS 06/27 08:59 Order name: Magnesium EDMS 06/27 09:42 Order name: CBC Smear Scan EDMS 06/28 06:21 Order name: ABG Arterial Blood Gas EDMS 06/28 08:26 Order name: CBC with Automated Diff EDMS 06/28 09:02 Order name: Comprehensive Metabolic Panel EDMS 06/23 22:28 Order name: XRAY Chest (1 view); Complete Time: 08:59 cp 06/23 22:28 Order name: EKG; Complete Time: 22:29 cp 06/23 22:28 Order name: Cardiac monitoring; Complete Time: 00:18 cp 06/23 22:28 Order name: EKG - Nurse/Tech; Complete Time: 00:44 cp 06/23 22:28 Order name: IV Saline Lock; Complete Time: 00:18 cp 06/23 22:28 Order name: Labs collected and sent; Complete Time: 00:18 cp 06/23 22:28 Order name: O2 Per Protocol; Complete Time: 00:18 cp 06/23 22:28 Order name: O2 Sat Monitoring; Complete Time: 00:18 cp 06/23 22:28 Order name: Daisy; Complete Time: 00:37 cp 06/24 02:18 Order name: CXR XRAY; Complete Time: 23:45 ea 06/24 02:57 Order name: CT Head C Spine cp 06/24 02:57 Order name: CT Chest For PE Angio cp 06/24 11:06 Order name: CT; Complete Time: 23:45 EDMS 06/24 11:08 Order name: CT; Complete Time: 23:45 EDMS 06/26 13:05 Order name: RAD EDMS 06/27 06:59 Order name: RAD EDMS 06/28 09:02 Order name: Magnesium EDMS 06/28 09:22 Order name: RAD EDMS 06/29 06:48 Order name: ABG Arterial Blood Gas EDMS 06/29 07:19 Order name: Comprehensive Metabolic Panel EDMS 06/29 07:19 Order name: NT PRO-BNP EDMS 06/29 07:19 Order name: Magnesium EDMS 06/29 07:29 Order name: CBC with Automated Diff EDMS 06/29 08:23 Order name: Procalcitonin EDMS 06/29 09:10 Order name: RAD EDMS 06/29 14:20 Order name: Magnesium EDMS 06/30 04:17 Order name: CBC with Automated Diff EDMS 06/30 04:22 Order name: Comprehensive Metabolic Panel EDMS 06/30 04:22 Order name: Phosphorus EDMS 06/30 10:59 Order name: CT EDMS 06/30 12:44 Order name: Magnesium EDMS 07/01 03:24 Order name: CBC with Automated Diff EDMS 07/01 04:23 Order name: Comprehensive Metabolic Panel EDMS 07/01 04:23 Order name: Magnesium EDMS 07/01 04:23 Order name: Transferrin Sat/Iron Binding EDMS 07/01 04:23 Order name: Ferritin EDMS 07/01 04:23 Order name: Vitamin B12 Level EDMS 07/01 07:07 Order name: RAD EDMS 07/02 02:48 Order name: CBC with Automated Diff EDMS 07/02 02:58 Order name: Comprehensive Metabolic Panel EDMS 07/02 02:58 Order name: Magnesium EDMS 07/03 04:04 Order name: Comprehensive Metabolic Panel EDMS 07/03 04:04 Order name: Magnesium EDMS EC:37 Rate is 119 beats/min. Rhythm is regular. QRS interval is normal. QT interval is cp normal. T waves are Inverted in lead aVL. Interpreted by me. Reviewed by me. Administered Medications: 01:50 Drug: Lasix (furosemide) 60 mg Route: IVP; Site: right antecubital; ea 03:03 Follow up: Response: No adverse reaction bb 01:50 Drug: Digoxin 0.5 mg Route: IVP; Site: right antecubital; ea 03:03 Follow up: Response: No adverse reaction bb 01:50 Drug: Lopressor (metoprolol) 5 mg Route: IVP; Site: right forearm; ea 03:04 Follow up: Response: No adverse reaction bb 02:14 Drug: Propofol 100 mg Route: IVP; Site: right upper arm; bb 03:04 Follow up: Response: No adverse reaction bb 02:15 Drug: Propofol 100 mg Route: IVP; Site: right antecubital; bb 03:04 Follow up: Response: No adverse reaction bb 02:15 Drug: Succinylcholine 140 mg Route: IVP; Site: right upper arm; bb 03:04 Follow up: Response: No adverse reaction bb 02:32 CANCELLED (Physician Discretion): Lovenox (enoxaparin) 1 mg/kg Sub-Q once cp 02:40 Drug: NS 0.9% 1000 ml Route: IV; Rate: 20 ml/hr; Site: right upper arm; bb 07:17 Follow up: IV Status: Completed infusion ea 02:40 Drug: Propofol 5 mcg/kg/min Route: IV; Rate: calculated rate; Site: right upper arm; bb 07:17 Follow up: IV Status: Completed infusion ea 03:18 Drug: Levophed (norepinephrine) (4 mg/250 mL D5W 4 mcg/min Route: IV; Rate: calculated bb rate; Site: right upper arm; 07:18 Follow up: IV Status: Completed infusion ea 03:30 Drug: fentaNYL (PF) 50 mcg Route: IVP; Site: right forearm; ea 07:18 Follow up: Response: No adverse reaction ea 06:17 Drug: LevaQUIN (levofloxacin) 750 mg Volume: 150 ml; Route: IVPB; Infused Over: 90 ea mins; Site: left antecubital; 07:18 Follow up: IV Status: Completed infusion ea 06:18 Drug: Lovenox (enoxaparin) 100 mg Route: Sub-Q; Site: abdomen; ea 07:17 Follow up: Response: No adverse reaction ea Disposition: 03:15 Critical Care:. Chart complete. cp 03:50 Co-signature as Attending Physician, Stanislav Merchant MD. pkl Disposition Summary: 06/24/21 02:56 Hospitalization Ordered Hospitalization Status: Inpatient Admission cp Provider: Munira Tobar cp Condition: Stable(06/24/21 02:56) cp Problem: new(06/24/21 02:56) cp Symptoms: have improved(06/24/21 02:56) cp Bed/Room Type: Standard cp Location: [facility] ER HOLD(06/24/21 03:00) cg Room Assignment: ERHOLD-(06/24/21 03:00) cg Diagnosis - Unspecified atrial flutter cp - Unspecified combined systolic (congestive) and diastolic (congestive) heart failure cp - Acute respiratory failure with hypercapnia cp - Altered mental status, unspecified(06/24/21 02:59) cp Forms: - Medication Reconciliation Form cp - SBAR form cp Critical care time excluding procedures: 03:15 Critical care time: Bedside Care: 10 minutes, Consultation: 30 minutes. Total time: 40 cp minutes Signatures: Dispatcher [employer] EDMS Elizabeth Flores Corey, MD MD cha Lam, Pin, MD MD pkl Ballard, Brenda, RN RN Ned Tiwari PA PA [id number] Dinh Crook, CHRISTOPHER-C [employer] [id number]-Cla1 Joe Rod PA PA cp Garcia, Cindy, RULA RN Ludivina Ribera RN RN ea Corrections: (The following items were deleted from the chart) 06/23 23:00 22:29 CORONAVIRUS+MR.LAB.BRZ ordered. EDMS EDMS 06/24 00:31 08 22:31 C-REACTIVE PROTEIN+C.LAB.BRZ ordered. EDMS EDMS 06/24 02:24 02:23 Doctor cp cp 02:32 02:31 Lovenox (enoxaparin) 1 mg/kg Sub-Q once ordered. cp cp 02:40 02:19 Chest Single View+RAD.RAD.BRZ ordered. EDMS EDMS 02:41 01:44 CBC Smear Scan ordered. EDMS EDMS 02:55 02:23 [facility] cp cp 02:55 02:23 Higher level of care cp cp 02:55 02:23 Critical cp cp 02:55 02:23 new cp cp 02:55 02:23 have improved cp cp 02:55 02:23 Respiratory failure, unspecified with hypercapnia cp cp 02:55 02:23 Morbid (severe) obesity with alveolar hypoventilation cp cp 02:55 02:24 Doctor cp cp 02:55 02:24 Altered mental status, unspecified cp cp 03:00 02:56 Intensive Care Unit cp cg 03:00 02:56 cp cg
[2021-06-24] MEDS ORDERED: NA CHLORIDE 0.9% 1,000 ML ONE (02:25)
[2021-06-24 02:44] LABS: Anisocytosis 2+; Blood Morphology Comment NOTED (NOT SEEN); Platelet Estimate ADEQ; Polychromasia 1+
[2021-06-24 02:45] LABS: Urine Specific Gravity/Preg >1.030 (1.005-1.030)
[2021-06-24 03:00] LABS: Urine Amorphous Sediment 1+ /HPF (NONE SEEN); Urine Bacteria 20-50 /HPF (<20); Urine RBC >50 /HPF (NONE SEEN)
--- NOTE | 2021-06-24 03:28 | P.HP ---
Certification for Inpatient Patient admitted to: Inpatient With expected LOS: >2 Midnights Patient will require the following post-hospital care: None Practitioner: I am a practitioner with admitting privileges, knowledge of patient current condition, hospital course, and medical plan of care. Services: Services provided to patient in accordance with Admission requirements found in Title 42 Section 412.3 of the Code of Federal Regulations <Dinh Crook - Last Filed: 06/24/21 03:22> Patient History Date of Service: 06/24/21 Primary Care Provider: Unknown Reason for admission: Respiratory failure, A. fib History of Present Illness: 46-year-old morbidly obese female with unknown medical history was transported to the emergency room by EMS for hypoxia. EMS reported to ER staff that she was found at home on a nasal cannula saturating in the 80s. Upon arrival to the emergency department patient was extremely lethargic but able to answer one-word questions, was able to tell staff that she is allergic to penicillin, this was the most that she was able to communicate with ER staff. Further evaluation with ABG revealed pH of 7.22 PCO2 of 107 PO2 65 HCO3 42.7, patient was placed on BiPAP. Additional labs revealed white blood cell count 8.6 procalcitonin negative hemoglobin 11.3 sodium 139 potassium 4.4 chloride 98 CO2 41 creatinine 0.69 glucose 100 9T bili 1.6T bili 0.8 BNP 2688 troponin 0 0.11, patient in atrial fibrillation unknown if she has a history of this. Patient was disheveled, dirty smells of urine reportedly lives alone urine with 20-50 bacteria Covid test negative. Attempted to reach out to patient's family via demographics but all phone numbers were disconnected. Repeat ABG demonstrated patient was still significantly hypercapnic and acidotic and becoming more altered, ED provider called anesthesiology as it was anticipated patient will be a difficult airway given the body habitus. Patient was intubated by anesthesiology in the emergency department. Transfer was attempted to all tertiary centers in the [place] area who all declined for capacity, ED pr ovider wishes to admit for further evaluation and management of acute hypercapnic hypoxic respiratory failure/A. fib/NSTEMI. - Past Medical/Surgical History Past Medical History: Unable to obtain Past Surgical History: Unable to obtain Psychosocial/ Personal History: Unable to obtain - Family History Father History Unknown: Yes - Social History Smoking Status: Unknown if ever smoked Place of Residence: Home <Dinh Crook - Last Filed: 06/24/21 03:22> Date of Service: 06/24/21 <Munira Tobar - Last Filed: 06/29/21 05:18> Review of Systems is unable to be obtained <Dinh Crook - Last Filed: 06/24/21 03:22> Physical Examination - Physical Exam General: Disheveled, Unresponsive, Obese HEENT: Normocephalic Neck: Supple Respiratory: Diminished Cardiovascular: Irregular heart rate/rhythm (A. fib, rate controlled) Capillary refill: <2 Seconds Gastrointestinal: Soft and benign, No masses, No rebound, No guarding Musculoskeletal: No clubbing, No contractures Integumentary: No tenderness/swelling, No warmth Neurological: Other (Sedated, on ventilator. Patient grunted to painful stimulus prior to intubation) - Studies Laboratory Data (last 24 hrs) 06/24/21 01:00: PT 24.6 H, INR 2.12 06/24/21 01:00: WBC 8.60, Hgb 11.3 L, Hct 39.7, Plt Count 311 06/24/21 01:00: Sodium 139, Potassium 4.4, BUN 14, Creatinine 0.69, Glucose 109 H, Magnesium 2.2, Total Bilirubin 1.6 H, AST 25, ALT 23, Alkaline Phosphatase 63 Microbiology Data (last 24 hrs): 06/24/21 00:13 Nasopharnyx Influenza Type A Antigen Screen - Final 06/24/21 00:13 Nasopharnyx Influenza Type B Antigen Screen - Final <Dinh Crook - Last Filed: 06/24/21 03:22> - Studies Microbiology Data (last 24 hrs): 06/24/21 00:35 Blood - Blood Aerobic Blood Culture - Final No growth in 5 days. 06/24/21 00:35 Blood - Blood Anaerobic Blood Culture - Final No growth in 5 days. 06/24/21 00:05 Blood - Blood Aerobic Blood Culture - Final 06/24/21 00:05 Blood - Blood Blood Culture Gram Stain - Final 06/24/21 00:05 Blood - Blood Anaerobic Blood Culture - Final No growth in 5 days. <Munira Tobar - Last Filed: 06/29/21 05:18> Assessment and Plan - Plan Assessment: Acute hypercapnic hypoxic respiratory failure unknown etiology Atrial fibrillationunknown if acute versus chronic NSTEMI Morbid obesity Plan: Acute hypercapnic hypoxic respiratory failure unknown etiology: Unable to obtain any previous medical history, patient has never been here before, was not communicating with staff well upon arrival, no family available by phone or at bedside for further interview. Patient morbidly obese likely some obesity hypoventilation syndrome at play, also appears to have cardiomegaly on chest x- ray possible underlying heart failure. It was reported by EMS that patient was on home oxygen, patient not wheezing doubt COPD. Pulmonology consulted, ventilator orders in place we will continue with daily ABG/labs. Appreciate further input from pulmonology. Transfer was attempted to all tertiary centers in [place] area was declined due to capacity at this time. Patient was also altered prior to intubation likely related to hypercapnia CT head brain pending if this can be obtained given patient's body habitus, also CT PE protocol pending. Atrial fibrillationunknown if acute versus chronic: Rate controlled at this time, patient was given full dose Lovenox in the emergency department, will continue full dose Lovenox and consult cardiology, medications as needed for rate control. NSTEMI: Likely related to demand ischemia, patient was in A. fib RVR throughout most of her ED stay with rate between 110 and 140, covered with Lovenox, cardiology consulted. Morbid obesity: We will need to address lifestyle changes once patient is awake/coherent. Patient reportedly lives home alone, this is likely not appropriate given her medical needs. DVT PPX: Lovenox Code status: Full Discharge Plan: Home Plan to discharge in: Greater than 2 days - Advance Directives Does patient have a Living Will: No Does patient have a Durable POA for Healthcare: No - Code Status/Comfort Care Code Status Assessed: Yes (Full code) Critical Care: Yes Time Spent Managing Pts Care (In Minutes): 80 <Dinh Crook - Last Filed: 06/24/21 03:22> - Problems (Diagnosis) (1) Respiratory failure Current Visit: Yes Status: Acute (2) Morbid obesity Current Visit: Yes Status: Acute (3) Obesity hypoventilation syndrome Current Visit: Yes Status: Acute (4) Congestive heart failure Current Visit: Yes Status: Acute (5) History of atrial fibrillation Current Visit: Yes Status: Acute <Munira Tobar - Last Filed: 06/29/21 05:18> Date of Service: 06/24/21 Agree with plan of care as mentioned above Subjective Pt is intubated and sedated; Review of Systems is unable to be obtained Physical Examination - Vital Signs Reviewed - Physical Exam General: Unresponsive, Other (intubated & sedated) Respiratory: Normal air movement, Diminished, Expiratory wheezes Cardiovascular: Regular rate/rhythm, Normal S1 S2 Gastrointestinal: Normal bowel sounds, Soft and benign, Non-distended, No tenderness Musculoskeletal: Swelling, Erythema, Tenderness Integumentary: Rash(es) - Studies Laboratory Data (last 24 hrs) 06/24/21 01:00: PT 24.6 H, INR 2.12 06/24/21 01:00: WBC 8.60, Hgb 11.3 L, Hct 39.7, Plt Count 311 06/24/21 01:00: Sodium 139, Potassium 4.4, BUN 14, Creatinine 0.69, Glucose 109 H, Magnesium 2.2, Total Bilirubin 1.6 H, AST 25, ALT 23, Alkaline Phosphatase 63 Microbiology Data (last 24 hrs): 06/24/21 00:13 Nasopharnyx Influenza Type A Antigen Screen - Final 06/24/21 00:13 Nasopharnyx Influenza Type B Antigen Screen - Final Assessment & Plan - Problems (Diagnosis) (1) Respiratory failure Current Visit: Yes Status: Acute (2) Morbid obesity Current Visit: Yes Status: Acute (3) Obesity hypoventilation syndrome Current Visit: Yes Status: Acute (4) Congestive heart failure Current Visit: Yes Status: Acute (5) History of atrial fibrillation Current Visit: Yes Status: Acute - Plan Plan: 1. Continue with MV 2. Continue monitoring cardiac status 3. Monitor volume status closely 4. Resume antiarrhythmics 5. Echocardiogram 6. Continue on Levophed 7. Wean off of vasopressor support 8. Start weaning off of sedation and work on spontaneous breathing trial 9. Continue antibiotics 10.GI and DVT prophylaxis Discharge Plan: Home Plan to discharge in: Greater than 2 days - Advance Directives Does patient have a Living Will: No Does patient have a Durable POA for Healthcare: No - Code Status/Comfort Care Code Status Assessed: Yes Code Status: Full Code Critical Care: No Time Spent Managing PTS Care (In Minutes): 40 <Munira Tobar - Last Filed: 06/29/21 05:18>
[2021-06-24] MEDS ORDERED: NOREPINEPHRINE 4 MG/4 ML VIAL ONE (03:34)
[2021-06-24] MEDS ORDERED: D5 0.9 NS 1,000 ML IV ONE (03:34)
[2021-06-24] MEDS ORDERED: FENTANYL CITR 100 MCG/2 ML ONE ×3 (03:44→19:10)
[2021-06-24] MEDS ORDERED: Levofloxacin 750mg IV 750 MG/150 ML BAG IV ONE (06:35)
[2021-06-24] MEDS ORDERED: ENOXAPARIN 100 MG/ML SYR SQ ONE ×3 (06:35→20:17)
[2021-06-24] MEDS: propofoL 1,000 MG/100 ML VIAL IV PRN ×3 (07:00→21:32)
[2021-06-24] MEDS ORDERED: ONDANSETRON 4 MG/2 ML VIAL IV PRN (07:35)
[2021-06-24 07:42] VITALS: BMI 82.3
--- NOTE | 2021-06-24 07:49 | RAD REPORT ---
EXAM DESCRIPTION: Michael Single View06/23/2021 11:06 pm CLINICAL HISTORY: Shortness of breath COMPARISON: none FINDINGS: Mild bilateral pulmonary opacities small pleural effusions. Heart is enlarged IMPRESSION: These findings probably indicate CHF
[2021-06-24 07:53] LABS: Blood Gas Oxyhemoglobin 97.4 % (94-97)
[2021-06-24 07:56] LABS: Blood O2 Saturation 96.5 % (92-98.5)
[2021-06-24 07:57] LABS: Arterial Blood Carboxyhemoglob 2.1 % (0-1.5); Blood Gas Oxyhemoglobin 93.7 % (94-97)
[2021-06-24] MEDS ORDERED: ENOXAPARIN 60 MG/0.6 ML SQ ONE ×2 (08:34→20:17)
[2021-06-24] MEDS ORDERED: FAMOTIDINE 20 MG/2 ML VIAL IV ONE ×2 (08:34→20:17)
[2021-06-24] MEDS ORDERED: HYDROCORTISONE SUC 100 MG INJ IV ONE (08:52)
[2021-06-24] MEDS: NOREPINEPHRINE 4 MG in D5W 250 ML IV PRN (08:53)
[2021-06-24] MEDS: FAMOTIDINE 20 MG/2 ML VIAL IV SCH ×2 (09:00→21:00)
[2021-06-24] MEDS ORDERED: SODIUM CHL 0.9% 1000 ML BAG IV SCH (09:00)
[2021-06-24] MEDS ORDERED: NOREPINEPHRINE 4mg/D5W 250mL 4 MG/250 ML BAG IV ONE (09:09)
[2021-06-24] MEDS ORDERED: HYDROCORTISONE SUC 100 MG INJ ONE (09:22)
[2021-06-24] MEDS ORDERED: NA CHLORIDE 0.9% 500 ML IV ONE (10:00)
[2021-06-24] MEDS: MIDAZOLAM HCL 2 MG/2 ML INJ IV PRN ×2 (10:37→18:50)
[2021-06-24] MEDS: FENTANYL CITR 100 MCG/2 ML IV PRN ×2 (10:37→18:50)
[2021-06-24] MEDS ORDERED: MIDAZOLAM HCL 2 MG/2 ML INJ ONE ×2 (10:55→19:09)
--- NOTE | 2021-06-24 11:02 | RAD REPORT ---
EXAM DESCRIPTION: Michael Single View06/24/2021 2:42 am CLINICAL HISTORY: 46 years, Female, post intubation COMPARISON: None. FINDINGS: Single view of the chest was obtained portable. No prior films are available for compariso n. The study is severely compromised due to patient large body habitus and underpenetration of the x- ray beam. Findings suggest perhaps a endotracheal tube and is difficult to identify with certainty wh ere the tip is located. Findings suggest most likely nasogastric tube in place. Repeat film is recomm ended. If this not possible consider CT scan. There is diffuse increased interstitial densities throu ghout the lung possibility of interstitial pulmonary edema and/or viral pneumonia/Covid 19 pneumonia could be of consideration. Probable small bilateral pleural effusions. The rest of the soft tissue and bony structures demonstrate to be unremarkable. IMPRESSION: Severely compromised study due to patient large body habitus and underpenetration of the x-ray beam. Findings suggest perhaps a endotracheal tube and is difficult to identify with certainty where the tip is located. Repeat film is recommended. If this not possible consider CT scan. Electronically signed by: Robinson Razo MD 06/24/2021 2:54 AM CDT Due to temporary technical issues with the PACS/Fluency reporting system, reports are being signed by the in house radiologist without review as a courtesy to ensure prompt reporting. The interpreting r adiologist is fully responsible for the content of the report.
--- NOTE | 2021-06-24 11:05 | RAD REPORT ---
EXAM DESCRIPTION: CT - Head C Spine Mpr Wo Con - 06/24/2021 5:32 am COMPARISON: None. CLINICAL HISTORY: [facility] MAIN respiratory failure TECHNIQUE: Axial images were obtained from skull base to vertex without intravenous contrast. Imag es viewed on bone and brain windows. Multiplanar reformats were performed. Automated exposure contr ol was utilized on this examination as a dose lowering technique. FINDINGS: Brain parenchyma, ventricles, dura, meninges, and extra-axial spaces: Ventricles and sulci are normal. No abnormal attenuation of brain parenchyma is present. No acute intracranial hemor rhage or abnormal extra-axial fluid collections are present. Vascular structures: No hyperdense arteries or veins. Calvarium, mastoid air cells, paranasal sinuses and orbits: The calvarium is normal. A 2.5 cm cystic lesion of the posterior right scalp likely represents a sebaceous cyst. Low density fluid in the left temporal scalp measures up to 1.1 cm in thickness. Overall, this fluid measures 6.7 x 1.1 x 9.7 cm. Large left mastoid effusion. Severe right maxillary and ethmoid sinus mucosal thickening. Orbital str uctures are unremarkable. IMPRESSION: 1. No acute intracranial abnormality. 2. Low-density fluid in the left temporal scalp could represent hematoma, seroma, or less likely absc ess. 3. Polysinusitis and large left mastoid effusion. EXAM DESCRIPTION: CT Cervical Spine COMPARISON: None. CLINICAL HISTORY: [facility] MA[facility] respiratory failure TECHNIQUE: Axial CT images were obtained through the entire cervical spine without contrast. Sagit manuel and coronal reconstructions are provided. Automated exposure control was utilized on this examina tion as a dose lowering technique. FINDINGS: Vertebrae: Vertebral statures and alignment are normal. No acute fracture, dislocation o r destructive osseous process is present. Spinal canal, foramina, and facet joints: No significant spinal canal or foraminal stenoses. No significant facet arthropathy. Paraspinous soft-tissues: Normal. Thyroid: A cystic lesion adjacent to the left thyroid gland measures 7.8 x 4.5 x 3.8 cm. Other Findings: None. IMPRESSION: Large fluid collection of the left neck adjacent to the left thyroid gland. This could r epresent a thyroid nodule or other fluid collection within the neck. This results in rightward displa cement of the trachea. Consider further evaluation with CT of the neck with contrast or ultrasound. EXAM DESCRIPTION: CTA Chest, Pulmonary Embolus Protocol COMPARISON: None. CLINICAL HISTORY: [facility] MA[facility] respiratory failure TECHNIQUE: CT images through the chest with IV contrast using the pulmonary embolus protocol. Multip lanar reformats. MIPS reformats are provided. Automated exposure control was utilized on this exami nation as a dose lowering technique. FINDINGS: Pulmonary arteries and vascular: Diagnostic quality bolus. No filling defects. The right m ain pulmonary measures 4.6 cm. Heart and mediastinum: Cardiomegaly. No lymphadenopathy. Thyroid gland: Visualized portions are normal. Lungs: Mild groundglass opacities are noted in both lungs. Airways: No filling defects. No bronchiectasis. The endotracheal tube tip is 1.4 cm from the trae. The enteric tube tip projects into the gastric body out of the [id number]. Pleura: No pneumothorax. Large bilateral pleural effusions. Dependent atelectasis. Subphrenic structures: Within normal limits. Musculoskeletal and soft tissues: Within normal limits for age. IMPRESSION: 1. No definite large proximal pulmonary emboli. Evaluation for branch emboli is limited by bolus timing and body habitus. Dilated main pulmonary artery is compatible with pulmonary arterial hypertension. 2. Cardiomegaly with large pleural effusions, dependent atelectasis, and scattered mild groundglass o pacities. These opacities likely represent pulmonary edema and/or atelectasis. Pneumonia is not exclu ded. Electronically signed by: Tyson Mitchell MD 06/24/2021 6:25 AM CDT Due to temporary technical issues with the PACS/Fluency reporting system, reports are being signed by the in house radiologist without review as a courtesy to ensure prompt reporting. The interpreting r adiologist is fully responsible for the content of the report.
--- NOTE | 2021-06-24 11:07 | RAD REPORT ---
EXAM DESCRIPTION: CT - Chest For Pe Angio - 06/24/2021 5:32 am COMPARISON: None. CLINICAL HISTORY: [facility] MAIN respiratory failure TECHNIQUE: Axial images were obtained from skull base to vertex without intravenous contrast. Imag es viewed on bone and brain windows. Multiplanar reformats were performed. Automated exposure contr ol was utilized on this examination as a dose lowering technique. FINDINGS: Brain parenchyma, ventricles, dura, meninges, and extra-axial spaces: Ventricles and sulci are normal. No abnormal attenuation of brain parenchyma is present. No acute intracranial hemor rhage or abnormal extra-axial fluid collections are present. Vascular structures: No hyperdense arteries or veins. Calvarium, mastoid air cells, paranasal sinuses and orbits: The calvarium is normal. A 2.5 cm cystic lesion of the posterior right scalp likely represents a sebaceous cyst. Low density fluid in the left temporal scalp measures up to 1.1 cm in thickness. Overall, this fluid measures 6.7 x 1.1 x 9.7 cm. Large left mastoid effusion. Severe right maxillary and ethmoid sinus mucosal thickening. Orbital str uctures are unremarkable. IMPRESSION: 1. No acute intracranial abnormality. 2. Low-density fluid in the left temporal scalp could represent hematoma, seroma, or less likely absc ess. 3. Polysinusitis and large left mastoid effusion. EXAM DESCRIPTION: CT Cervical Spine COMPARISON: None. CLINICAL HISTORY: [facility] MAIN respiratory failure TECHNIQUE: Axial CT images were obtained through the entire cervical spine without contrast. Sagit manuel and coronal reconstructions are provided. Automated exposure control was utilized on this examina tion as a dose lowering technique. FINDINGS: Vertebrae: Vertebral statures and alignment are normal. No acute fracture, dislocation o r destructive osseous process is present. Spinal canal, foramina, and facet joints: No significant spinal canal or foraminal stenoses. No significant facet arthropathy. Paraspinous soft-tissues: Normal. Thyroid: A cystic lesion adjacent to the left thyroid gland measures 7.8 x 4.5 x 3.8 cm. Other Findings: None. IMPRESSION: Large fluid collection of the left neck adjacent to the left thyroid gland. This could r epresent a thyroid nodule or other fluid collection within the neck. This results in rightward displa cement of the trachea. Consider further evaluation with CT of the neck with contrast or ultrasound. EXAM DESCRIPTION: CTA Chest, Pulmonary Embolus Protocol COMPARISON: None. CLINICAL HISTORY: [facility] MAIN respiratory failure TECHNIQUE: CT images through the chest with IV contrast using the pulmonary embolus protocol. Multip lanar reformats. MIPS reformats are provided. Automated exposure control was utilized on this exami nation as a dose lowering technique. FINDINGS: Pulmonary arteries and vascular: Diagnostic quality bolus. No filling defects. The right m ain pulmonary measures 4.6 cm. Heart and mediastinum: Cardiomegaly. No lymphadenopathy. Thyroid gland: Visualized portions are normal. Lungs: Mild groundglass opacities are noted in both lungs. Airways: No filling defects. No bronchiectasis. The endotracheal tube tip is 1.4 cm from the trae. The enteric tube tip projects into the gastric body out of the [id number]. Pleura: No pneumothorax. Large bilateral pleural effusions. Dependent atelectasis. Subphrenic structures: Within normal limits. Musculoskeletal and soft tissues: Within normal limits for age. IMPRESSION: 1. No definite large proximal pulmonary emboli. Evaluation for branch emboli is limited by bolus timing and body habitus. Dilated main pulmonary artery is compatible with pulmonary arterial hypertension. 2. Cardiomegaly with large pleural effusions, dependent atelectasis, and scattered mild groundglass o pacities. These opacities likely represent pulmonary edema and/or atelectasis. Pneumonia is not exclu ded. Electronically signed by: Tyson Mitchell MD 06/24/2021 6:25 AM CDT Due to temporary technical issues with the PACS/Fluency reporting system, reports are being signed by the in house radiologist without review as a courtesy to ensure prompt reporting. The interpreting r adiologist is fully responsible for the content of the report.
[2021-06-24] MEDS ORDERED: SUCCINYLCHOLINE 20 MG/ML (10 ML) IV ONE (12:31)
--- NOTE | 2021-06-24 13:58 | CON ---
Date of Consultation: 06/24/[address] Tobar with acute respiratory failure on 06/24/2021. I saw the patient on 06/24/2021. Reason For Consultation: Acute respiratory failure, atrial fibrillation, elevated troponin, obesity, cardiomegaly, respiratory failure. History Of Present Illness: Ms. Juarez is a 46-year-old woman, who was seen by Dr. Merchant in the [facility] room with breathing difficulty requiring intubation rather emergently. No details as to what happened, but the patient apparently was found by the neighbor to be lethargic, confused, unable to g estefanía any detailed history, but she is intubated now and she was noted to be in atrial fibrillation wit h a heart rate of 85. The patient weighed 450 pounds. She has a 99% O2 saturation on mechanical suzette tilation. Her past medical history, review of systems, social history are unobtainable. Allergies: SHE IS ALLERGIC TO PENICILLIN. Medications: At home were also unavailable to us. Physical Examination: Vital Signs: The patient was in atrial fibrillation and sinus rhythm intermittently, but her rate wa s controlled. Blood pressure was 152/80, afebrile. She is on ventilator with 100% O2 saturation. HEENT: Negative. Neck: Supple with no bruit. Chest: Revealed crackles both bases. Cardiac: Revealed sinus rhythm with S4 gallops. No murmurs or rubs. Abdomen: Obese, but benign. Extremities: Revealed 2+ edema. Laboratory Data: Her EKG is nonspecific. Chest x-ray is negative. Creatinine is 0.69. White count is normal. Hemoglobin is 11. INR 2.12 . Troponin is 0.11. BNP is 2688. C-reactive pro tein was 29. Urinalysis showed UTI. Impression And Plan: Respiratory failure, possibly secondary to pulmonary hypertension or Pickwickia n syndrome with congestive heart failure. Echocardiogram should be obtained. She should be on Loven ox. She should be on antibiotics, probably low-dose Lasix when her blood pressure improved. She was on Levophed when I saw her. We will see what her echocardiogram shows before making further decisio ns. CTA for PE protocol was pending. C-spine and head MRI are pending. Pulmonary consultation is p ending. Again, I would diurese, put on antibiotics, obtain a CT angiogram of the chest pain, and a 2 D echocardiogram. I will continue to follow her along. ROBERT/GIA Voice ID: [id number] Report ID: [id number]
--- NOTE | 2021-06-24 14:22 | ECHO ---
HEIGHT: 5 ft 2 in WEIGHT: 450 lb 0 oz DATE OF STUDY: 06/24/[address]: Dinh Crook NP 2-DIMENSIONAL: YES M.MODE: YES DOPPLER: YES COLOR FLOW: YES TDS: YES PORTABLE: YES DEFINITY: NO BUBBLE STUDY: NO DIAGNOSIS: NSTEMI, ATRIAL FLUTTER CARDIAC HISTORY: CATHERIZATION: NO SURGERY: NO PROSTHETIC VALVE: NO PACEMAKER: NO MEASUREMENTS (cm) DIASTOLIC (NORMALS) SYSTOLIC (NORMALS) IVSd 1.1 (0.6-1.2) LA Diam 3.4 (1.9-4.0) LVEF 37% LVIDd 4.7 (3.5-5.7) LVIDs 3.9 (2.0-3.5) %FS 18% LVPWd 1.2 (0.6-1.2) Ao Diam 3.1 (2.0-3.7) 2 DIMENSIONAL ASSESSMENT: RIGHT ATRIUM: LEFT ATRIUM: RIGHT VENTRICLE: LEFT VENTRICLE: TRICUSPID VALVE: MITRAL VALVE: PULMONIC VALVE: AORTIC VALVE: PERICARDIAL EFFUSION: AORTIC ROOT: LEFT VENTRICULAR WALL MOTION: DOPPLER/COLOR FLOW: COMMENTS: VERY LIMITED WINDOWS. LEFT VENTRICULAR EJECTION FRACTION APPEARS REDUCED BUT NOTABLE TO QUALIFY EJECTION FRACTION OR EVALUATE WALL MOTION DUE TO POOR WINDOWS. TECHNOLOGIST: Dolly ELENA
[2021-06-24 16:39] LABS: Absolute Lymphocytes (CBC) 0.5 K/uL (0.7-4.9); Basophils % 0.6 % (0-1.3); Hematocrit 37.8 % (36.0-45.0); Lymphocytes % 5.5 % (15.3-44.8); MPV 8.5 fL (7.6-11.3); RBC Red Blood Cell Count 5.02 M/uL (3.86-4.86)
[2021-06-24 16:51] LABS: ALT/SGPT 20 U/L (12-78); AST/SGOT 23 U/L (15-37); Albumin 2.6 g/dL (3.4-5.0); Alkaline Phosphatase 50 U/L (45-117); BUN Blood Urea Nitrogen 14 mg/dL (7-18); Bilirubin Total 1.5 mg/dL (0.2-1.0); Glucose Level 100 mg/dL (74-106); Potassium 3.8 mmol/L (3.5-5.1); Protein, Total 7.2 g/dL (6.4-8.2); Sodium Level 143 mmol/L (136-145)
[2021-06-24 16:52] LABS: HDL Cholesterol 20 mg/dL (40-60); LDL Cholesterol, Calculated 37 (<130); Troponin I 0.74 ng/mL (0.0-0.045)
[2021-06-24 16:54] LABS: Bicarbonate 43 mmol/L (21-32)
[2021-06-24 17:28] LABS: Anisocytosis 1+; Blood Morphology Comment NOTED (NOT SEEN); Platelet Estimate ADEQ; Poikilocytosis 1+
--- NOTE | 2021-06-24 18:07 | P.PN ---
Subjective Date of Service: 06/24/21 Pt is intubated and sedated; Review of Systems is unable to be obtained Physical Examination - Vital Signs Temperature: 97.4 F Blood Pressure: 113/72 Pulse: 84 Respirations: 18 Pulse Ox (%): 99 - Physical Exam General: Unresponsive, Other (intubated & sedated) Respiratory: Normal air movement, Diminished, Expiratory wheezes Cardiovascular: Regular rate/rhythm, Normal S1 S2 Gastrointestinal: Normal bowel sounds, Soft and benign, Non-distended, No tenderness Musculoskeletal: Swelling, Erythema, Tenderness Integumentary: Rash(es) - Studies Laboratory Data (last 24 hrs) 06/24/21 01:00: PT 24.6 H, INR 2.12 06/24/21 01:00: WBC 8.60, Hgb 11.3 L, Hct 39.7, Plt Count 311 06/24/21 01:00: Sodium 139, Potassium 4.4, BUN 14, Creatinine 0.69, Glucose 109 H, Magnesium 2.2, Total Bilirubin 1.6 H, AST 25, ALT 23, Alkaline Phosphatase 63 Microbiology Data (last 24 hrs): 06/24/21 00:13 Nasopharnyx Influenza Type A Antigen Screen - Final 06/24/21 00:13 Nasopharnyx Influenza Type B Antigen Screen - Final Assessment & Plan - Problems (Diagnosis) (1) Respiratory failure Current Visit: Yes Status: Acute (2) Morbid obesity Current Visit: Yes Status: Acute (3) Obesity hypoventilation syndrome Current Visit: Yes Status: Acute (4) Congestive heart failure Current Visit: Yes Status: Acute (5) History of atrial fibrillation Current Visit: Yes Status: Acute - Plan Plan: 1. Continue with MV 2. Continue monitoring cardiac status 3. Monitor volume status closely 4. Resume antiarrhythmics 5. Echocardiogram 6. Continue on Levophed 7. Wean off of vasopressor support 8. Start weaning off of sedation and work on spontaneous breathing trial 9. Continue antibiotics 10.GI and DVT prophylaxis Discharge Plan: Home Plan to discharge in: Greater than 2 days - Advance Directives Does patient have a Living Will: No Does patient have a Durable POA for Healthcare: No - Code Status/Comfort Care Code Status Assessed: Yes Code Status: Full Code Critical Care: No Time Spent Managing PTS Care (In Minutes): 40
[2021-06-24 18:26] LABS: White Blood Cell Scan OK (OK)
[2021-06-24 19:42] LABS: Blood Gas Oxyhemoglobin 92.1 % (94-97); Blood O2 Saturation 94.8 % (92-98.5)
[2021-06-25] MEDS ORDERED: propofoL 1,000 MG/100 ML VIAL IV ONE ×10 (00:55→22:35)
[2021-06-25] MEDS ORDERED: MIDAZOLAM HCL 2 MG/2 ML INJ ONE ×4 (02:28→21:00)
[2021-06-25] MEDS ORDERED: FENTANYL CITR 100 MCG/2 ML ONE ×5 (02:28→21:01)
[2021-06-25] MEDS: Levofloxacin500mg IV 500 MG/100 ML BAG IV SCH (04:00)
[2021-06-25 05:24] LABS: Urine Appearance TURBID (Clear); Urine Blood NEGATIVE (Negative); Urine Color ORANGE (Yellow); Urine Glucose NEGATIVE (Negative); Urine Protein TRACE (Negative); Urine Specific Gravity >=1.030 (1.005-1.030); Urine pH 5.5 (5.0-7.0)
[2021-06-25 05:31] LABS: Urine Bilirubin NEGATIVE (Negative); Urine Microscopic Reflex ORDER UMIC
[2021-06-25 05:38] LABS: Arterial Blood Carboxyhemoglob 2.2 % (0-1.5)
[2021-06-25 05:39] LABS: Urine Bacteria <20 /HPF (<20)
[2021-06-25] MEDS ORDERED: Levofloxacin 750mg IV 750 MG/150 ML BAG IV ONE (06:19)
[2021-06-25] MEDS: propofoL 1,000 MG/100 ML VIAL IV PRN ×2 (08:00→14:59)
[2021-06-25] MEDS: NOREPINEPHRINE 4 MG in D5W 250 ML IV PRN (08:40)
[2021-06-25] MEDS: FAMOTIDINE 20 MG/2 ML VIAL IV SCH ×2 (09:00→21:00)
[2021-06-25] MEDS: FENTANYL CITR 100 MCG/2 ML IV PRN ×4 (09:58→22:19)
[2021-06-25] MEDS: MIDAZOLAM HCL 2 MG/2 ML INJ IV PRN ×3 (10:00→20:30)
[2021-06-25] MEDS ORDERED: FAMOTIDINE 20 MG/2 ML VIAL IV ONE ×2 (11:23→22:26)
[2021-06-25] MEDS: HALOPERIDOL LACT 5 MG/ML INJ IV PRN (12:46)
[2021-06-25] MEDS ORDERED: HALOPERIDOL LACT 5 MG/ML INJ ONE (13:05)
[2021-06-25 14:19] LABS: Absolute Lymphocytes (CBC) 1.1 K/uL (0.7-4.9)
[2021-06-25 14:43] LABS: ALT/SGPT 18 U/L (12-78); AST/SGOT 19 U/L (15-37); Albumin 2.6 g/dL (3.4-5.0); Alkaline Phosphatase 46 U/L (45-117); BUN Blood Urea Nitrogen 14 mg/dL (7-18); Bicarbonate 40 mmol/L (21-32); Bilirubin Total 1.6 mg/dL (0.2-1.0); Glucose Level 80 mg/dL (74-106); Magnesium 2.1 mg/dL (1.8-2.4); Potassium 3.7 mmol/L (3.5-5.1); Protein, Total 7.2 g/dL (6.4-8.2); Sodium Level 142 mmol/L (136-145)
--- NOTE | 2021-06-25 14:50 | PN ---
Date of Progress Note: 06/25/2021 The patient was admitted with respiratory failure requiring intubation. Has morbid obesity, history of atrial fibrillation, and hypertension in the past. She had an echocardiogram showing an ejection fraction of 37% consistent with [id number] global hypokinesis. The patient should be diurese d with IV Lasix. At home, she takes amiodarone, Coumadin, Lasix and metoprolol, and we should put he r back on these medications once she is extubated. For now, she is on Lovenox. I agree with her pre sent regimen. I will be available for questions if the need arises. ROBERT/GIA Voice ID: [id number] Report ID: [id number]
[2021-06-25 14:51] LABS: Basophils % 0.9 % (0-1.3); Hematocrit 36.4 % (36.0-45.0); Lymphocytes % 15.9 % (15.3-44.8); MPV 8.5 fL (7.6-11.3); RBC Red Blood Cell Count 4.93 M/uL (3.86-4.86)
[2021-06-25 14:53] LABS: Anisocytosis 3+; Blood Morphology Comment NOTED (NOT SEEN); Hypochromasia 1+; Platelet Estimate ADEQ; White Blood Cell Scan OK (OK)
--- NOTE | 2021-06-25 17:01 | P.CNS ---
Date of Consult: 06/25/21 Reason for Consult: REsp failure Primary Care Provider: Unknown Chief Complaint: Respiratory failure, A. fib History of Present Illness: Age 46 morbidly obeseaw resp failure/ Intubated. Disheveled Allergies Penicillins Allergy (Verified 06/24/21 07:31) Anaphylaxis Home Medications: Amiodarone HCl [Cordarone*] 1 tab PO DAILY 06/24/21 Furosemide 1 tab PO BID 6AM 6PM 06/24/21 Metoprolol Tartrate 3 tab PO DAILY 06/24/21 Warfarin Sodium 1 tab PO DAILY 06/24/21 - Past Medical/Surgical History Psychosocial/ Personal History: Unable to obtain - Family History Father History Unknown: Yes - Social History Place of Residence: Home Review of Systems is unable to be obtained Physical Examination Temp Pulse Resp BP Pulse Ox 97.4 F 123 H 18 105/72 94 06/25/21 16:00 06/25/21 16:30 06/25/21 16:00 06/25/21 16:30 06/25/21 16:00 General: Unresponsive - Problems (1) Respiratory failure with hypercapnia Current Visit: Yes Status: Acute Plan: Probably underlying Obeisty hypovent syn/ labs reviewed TSH stveie/ Add DiamoxCXRY bialteral effusion/ aDD BD/ obsety induced astham. CXRY bialterla effusion. NOrmalLVEF Qualifiers: Chronicity: acute on chronic Qualified Code(s): J96.22 - Acute and chronic respiratory failure with hypercapnia
[2021-06-25] MEDS: ARFORMOTEROL TARTRATE 15 MCG/2 ML VIAL.NEB NEB SCH ×2 (17:04→20:00)
--- NOTE | 2021-06-25 18:11 | P.PN ---
Date of Service: 06/25/21 Subjective Pt remains on vent. I have weaned down and hopefully we can get this cut off. I will need to slowly start trying to wean down the propofol as well. Nurses are supposed to start using fentanyl and Versed so we can wean off the propofol. Patient was a history of congestive heart failure with the ejection fraction of 37%. Fluid boluses held at this time Review of Systems is unable to be obtained Physical Examination - Vital Signs reviewed - Physical Exam General: Unresponsive; mechanical ventilation Respiratory: Normal air movement, Diminished, Expiratory wheezes Cardiovascular: Regular rate/rhythm, Normal S1 S2 Gastrointestinal: normal bowel sounds, soft and benign, non-distended, no tenderness; obese Musculoskeletal: No clubbing; patient will lower extremity edema Assessment & Plan - Problems (Diagnosis) (1) Respiratory failure Current Visit: Yes Status: Acute (2) Morbid obesity Current Visit: Yes Status: Acute (3) Obesity hypoventilation syndrome Current Visit: Yes Status: Acute (4) Congestive heart failure Current Visit: Yes Status: Acute (5) History of atrial fibrillation Current Visit: Yes Status: Acute - Plan Continue with plan of care as mentioned below: 1. Continue with MV; check ABGs 2. Continue monitoring cardiac status; ejection fraction of 37%; hold fluid boluses 3. Monitor volume status closely 4. Resume antiarrhythmics; patient on beta-alexsander and amiodarone at home. 5. Echocardiogram reviewed with Cardiology 6. Continue on Levophed- have tried to wean this off today 7. Start weaning off of sedation and work on spontaneous breathing trial 8. Continue antibiotics 9. GI and DVT prophylaxis
[2021-06-25] MEDS ORDERED: ARFORMOTEROL TARTRATE 15 MCG/2 ML VIAL.NEB ONE (20:02)
[2021-06-25] MEDS: ENOXAPARIN 40 MG/0.4 ML SQ SCH (21:00)
[2021-06-25] MEDS ORDERED: ENOXAPARIN 40 MG/0.4 ML SQ ONE (22:26)
[2021-06-26] MEDS: MIDAZOLAM HCL 2 MG/2 ML INJ IV PRN ×4 (01:03→10:29)
[2021-06-26] MEDS ORDERED: propofoL 1,000 MG/100 ML VIAL IV ONE ×9 (01:10→21:45)
[2021-06-26] MEDS ORDERED: MIDAZOLAM HCL 2 MG/2 ML INJ ONE ×4 (01:18→10:40)
[2021-06-26] MEDS ORDERED: FENTANYL CITR 100 MCG/2 ML ONE ×4 (01:19→05:54)
[2021-06-26] MEDS: FENTANYL CITR 100 MCG/2 ML IV PRN ×2 (02:00→05:42)
[2021-06-26] MEDS ORDERED: FENTANYL CITR 100 MCG/2 ML IV ONE (02:40)
[2021-06-26] MEDS: HALOPERIDOL LACT 5 MG/ML INJ IV PRN (03:55)
[2021-06-26] MEDS: Levofloxacin500mg IV 500 MG/100 ML BAG IV SCH (04:00)
[2021-06-26] MEDS ORDERED: HALOPERIDOL LACT 5 MG/ML INJ ONE (04:15)
[2021-06-26 05:47] LABS: Arterial Blood Carboxyhemoglob 2.6 % (0-1.5); Blood Gas Oxyhemoglobin 88.5 % (94-97); Blood O2 Saturation 91.7 % (92-98.5)
[2021-06-26] MEDS ORDERED: Levofloxacin500mg IV 500 MG/100 ML BAG IV ONE (05:55)
[2021-06-26] MEDS ORDERED: ARFORMOTEROL TARTRATE 15 MCG/2 ML VIAL.NEB ONE ×2 (07:53→20:11)
[2021-06-26] MEDS: ARFORMOTEROL TARTRATE 15 MCG/2 ML VIAL.NEB NEB SCH ×2 (08:24→19:52)
[2021-06-26] MEDS: FAMOTIDINE 20 MG/2 ML VIAL IV SCH ×2 (09:00→21:00)
[2021-06-26] MEDS: ENOXAPARIN 40 MG/0.4 ML SQ SCH (09:00)
[2021-06-26] MEDS ORDERED: FAMOTIDINE 20 MG/2 ML VIAL IV ONE ×2 (10:40→20:49)
[2021-06-26] MEDS ORDERED: ENOXAPARIN 40 MG/0.4 ML SQ ONE (10:40)
[2021-06-26] MEDS ORDERED: ALBUMIN HUMAN 25% 100 ML IV ONE ×2 (11:33→12:52)
[2021-06-26] MEDS ORDERED: AMIODARONE HCL 900 MG in Dextrose 5%-Water 482 ML IV SCH ×2 (12:00→18:00)
[2021-06-26] MEDS ORDERED: ENOXAPARIN 30 MG/0.3 ML SQ ONE (12:51)
[2021-06-26] MEDS ORDERED: ENOXAPARIN 100 MG/ML SYR SQ ONE (12:51)
[2021-06-26] MEDS: Enoxaparin 120 MG/0.8 ML SYR SQ SCH ×2 (13:00→21:00)
--- NOTE | 2021-06-26 13:04 | RAD REPORT ---
EXAM DESCRIPTION: RAD - Chest Single View - 06/26/2021 3:11 am CLINICAL HISTORY: The patient is 46 years old and is Female; line placement TECHNIQUE: Frontal view of the chest. COMPARISON: Chest x-ray June 24, 2021. FINDINGS: Lungs: Diffuse interstitial and airspace opacities bilaterally, similar to prior. Left hemidiaphragm is obscured which can be seen with left lower lobe consolidation or atele ctasis. Pleural space: Costophrenic angles are obscured which may indicate bilateral pleural effusions. No pneumothorax. Heart: Unremarkable. Mediastinum: Unremarkable. Bones/joints: Unremarkable. Tubes, lines and devices: Left PICC line with poorly visualized tip in the region of the left br achiocephalic vein. Poorly visualized endotracheal and nasogastric tubes. IMPRESSION: 1. Diffuse interstitial and airspace opacities bilaterally, similar to prior. 2. Left hemidiaphragm is obscured which can be seen with left lower lobe consolidation or atelectas is. 3. Costophrenic angles are obscured which may indicate bilateral pleural effusions. Electronically signed by: Kory Engle MD 06/26/2021 3:26 AM CDT Due to temporary technical issues with the PACS/Fluency reporting system, reports are being signed by the in house radiologist without review as a courtesy to ensure prompt reporting. The interpreting r adiologist is fully responsible for the content of the report.
[2021-06-26] MEDS: CEFEPIME/SWI 2gm 2 GM/20 ML SYR IV SCH ×2 (13:15→17:00)
[2021-06-26 17:50] LABS: ALT/SGPT 15 U/L (12-78); AST/SGOT 28 U/L (15-37); Albumin 2.8 g/dL (3.4-5.0); Alkaline Phosphatase 43 U/L (45-117); BUN Blood Urea Nitrogen 11 mg/dL (7-18); Bicarbonate 40 mmol/L (21-32); Bilirubin Total 1.7 mg/dL (0.2-1.0); Glucose Level 87 mg/dL (74-106); Magnesium 2.1 mg/dL (1.8-2.4); Potassium 3.6 mmol/L (3.5-5.1); Protein, Total 7.4 g/dL (6.4-8.2); Sodium Level 142 mmol/L (136-145)
[2021-06-26 18:22] LABS: Basophils % 0.7 % (0-1.3); MPV 8.8 fL (7.6-11.3)
[2021-06-27] MEDS: MIDAZOLAM HCL 2 MG/2 ML INJ IV PRN ×4 (00:13→23:22)
[2021-06-27] MEDS ORDERED: MIDAZOLAM HCL 2 MG/2 ML INJ ONE ×4 (00:21→23:23)
[2021-06-27] MEDS ORDERED: propofoL 1,000 MG/100 ML VIAL IV ONE ×4 (00:26→08:21)
--- NOTE | 2021-06-27 00:26 | P.PN ---
Date of Service: 06/26/21 Subjective Levophed is off at this time. Wean off of propofol. urine cultures with Proteus and E coli however less than 100,000 colonies forming unit. Blood cultures with 1/4 bottles with gram-positive cocci. Most likely contaminant. Review of Systems is unable to be obtained Physical Examination - Vital Signs reviewed - Physical Exam General: Unresponsive; mechanical ventilation Respiratory: Normal air movement, Diminished, Expiratory wheezes Cardiovascular: Regular rate/rhythm, Normal S1 S2 Gastrointestinal: normal bowel sounds, soft and benign, non-distended, no tenderness; obese Musculoskeletal: No clubbing; patient will lower extremity edema Assessment & Plan - Problems (Diagnosis) (1) Respiratory failure Current Visit: Yes Status: Acute (2) Morbid obesity Current Visit: Yes Status: Acute (3) Obesity hypoventilation syndrome Current Visit: Yes Status: Acute (4) Congestive heart failure Current Visit: Yes Status: Acute (5) History of atrial fibrillation Current Visit: Yes Status: Acute - Plan Continue with plan of care as mentioned below: 1. Continue with MV; compensated respiratory acidosis; patient able to follow commands once we wean down her sedation. Will need to try to work on waking her up and extubate her in the morning 2. Continue monitoring cardiac status; ejection fraction of 37%; hold fluid boluses; may be need to diurese if hemodynamics are stable 3. Monitor volume status closely; strict input and output 4. Resume antiarrhythmics; patient on beta-alexsander and amiodarone at home. 5. Echocardiogram reviewed with Cardiology 6. Continue on Levophed- have tried to wean this off today 7. Start weaning off of sedation and work on spontaneous breathing trial 8. Continue antibiotics; continue with cefepime 9. GI and DVT prophylaxis
[2021-06-27] MEDS: CEFEPIME/SWI 2gm 2 GM/20 ML SYR IV SCH ×2 (01:00→09:00)
[2021-06-27] MEDS ORDERED: CEFEPIME/SWI 1gm 10 ML ONE (05:34)
[2021-06-27 05:42] LABS: Arterial Blood Carboxyhemoglob 2.7 % (0-1.5); Blood Gas Oxyhemoglobin 93.2 % (94-97); Blood O2 Saturation 96.7 % (92-98.5)
--- NOTE | 2021-06-27 06:58 | RAD REPORT ---
EXAM DESCRIPTION: RAD - Chest Single View - 06/27/2021 6:35 am CLINICAL HISTORY: pneumonia COMPARISON: Chest Single View dated 06/26/2021; Chest Single View dated 06/24/2021; Chest Single View d ated 06/23/2021; Chest For Pe Angio dated 06/24/2021 FINDINGS: Difficult to evaluate due to body habitus and patient rotation. The endotracheal tube term inates at the trae. This is approximately 3.5 centimeters below the top of the aortic arch. Re- dem onstrated widespread bilateral airspace disease. The cardiac silhouette is partially obscured. Enteri c tube is noted with the tip is not visualized. This goes below the diaphragm. IMPRESSION: 1. The ET tube is at the trae and should be retracted for more optimal positioning. 2. Widespread bilateral airspace disease without significant change likely representing combination o f pneumonia and/or pulmonary edema with effusions.
[2021-06-27] MEDS ORDERED: propofoL 200 MG/20 ML VIAL IV ONE (07:41)
[2021-06-27] MEDS: ARFORMOTEROL TARTRATE 15 MCG/2 ML VIAL.NEB NEB SCH ×2 (08:34→20:15)
[2021-06-27 08:43] LABS: Absolute Lymphocytes (CBC) 0.8 K/uL (0.7-4.9); Basophils % 1.1 % (0-1.3); Hematocrit 36.5 % (36.0-45.0); Lymphocytes % 14.2 % (15.3-44.8); MPV 8.4 fL (7.6-11.3); RBC Red Blood Cell Count 4.93 M/uL (3.86-4.86)
[2021-06-27] MEDS ORDERED: ARFORMOTEROL TARTRATE 15 MCG/2 ML VIAL.NEB ONE ×2 (08:55→19:55)
[2021-06-27 08:58] LABS: ALT/SGPT 15 U/L (12-78); AST/SGOT 38 U/L (15-37); Albumin 2.7 g/dL (3.4-5.0); Alkaline Phosphatase 42 U/L (45-117); BUN Blood Urea Nitrogen 9 mg/dL (7-18); Bicarbonate 39 mmol/L (21-32); Bilirubin Total 1.9 mg/dL (0.2-1.0); Glucose Level 90 mg/dL (74-106); Potassium 3.5 mmol/L (3.5-5.1); Protein, Total 7.3 g/dL (6.4-8.2); Sodium Level 140 mmol/L (136-145)
[2021-06-27] MEDS: Enoxaparin 120 MG/0.8 ML SYR SQ SCH ×2 (09:00→21:00)
[2021-06-27] MEDS ORDERED: FAMOTIDINE 20 MG/2 ML VIAL IV ONE ×2 (09:00→19:38)
[2021-06-27] MEDS ORDERED: ENOXAPARIN 60 MG/0.6 ML SQ ONE (09:00)
[2021-06-27] MEDS: FAMOTIDINE 20 MG/2 ML VIAL IV SCH ×2 (09:00→21:00)
[2021-06-27 09:42] LABS: Anisocytosis 2+; Blood Morphology Comment NOTED (NOT SEEN); Hypochromasia 1+; Platelet Estimate ADEQ; White Blood Cell Scan OK (OK)
[2021-06-27] MEDS: AMIODARONE HCL 900 MG in Dextrose 5%-Water 482 ML IV SCH (10:19)
[2021-06-27] MEDS ORDERED: AMIODARONE HCL 900 MG in Dextrose 5%-Water 482 ML IV SCH (12:00)
--- NOTE | 2021-06-27 12:15 | P.PN ---
Subjective Date of Service: 06/27/21 Primary Care Provider: Unknown Chief Complaint: Respiratory failure, A. fib Subjective: Improving (On propofol drip/stable) Review of Systems is unable to be obtained Physical Examination - Vital Signs Temperature: 98.8 F Blood Pressure: 116/67 Pulse: 113 Respirations: 16 Pulse Ox (%): 95 - Studies Microbiology Data (last 24 hrs): 06/24/21 01:54 Clean Catch Urine Marceline Count - Final BETWEEN 10,000 & 100,000 CFU/ML 06/24/21 01:54 Clean Catch Urine - Final Escherichia Coli Proteus Mirabilis 06/24/21 00:05 Blood - Blood Aerobic Blood Culture - Final 06/24/21 00:05 Blood - Blood Blood Culture Gram Stain - Final Assessment & Plan - Problems (Diagnosis) (1) Respiratory failure with hypercapnia Current Visit: Yes Status: Acute Plan: Resp failure plan to wean and extubate today/ ABG satisfactory on 45%/ LAbs reviewed/Ecoli bacteremia Qualifiers: Chronicity: acute on chronic Qualified Code(s): J96.22 - Acute and chronic respiratory failure with hypercapnia
[2021-06-27] MEDS: LORazepam 2 MG/ML VIAL IV PRN ×2 (16:00→19:00)
[2021-06-27] MEDS ORDERED: LORazepam 2 MG/ML VIAL ONE ×3 (16:14→23:24)
[2021-06-27] MEDS: FENTANYL CITR 100 MCG/2 ML IV PRN (17:46)
[2021-06-27] MEDS ORDERED: FENTANYL CITR 100 MCG/2 ML ONE ×2 (17:59→19:38)
[2021-06-27] MEDS: HALOPERIDOL LACT 5 MG/ML INJ IV PRN (18:50)
[2021-06-27] MEDS ORDERED: HALOPERIDOL LACT 5 MG/ML INJ ONE (19:07)
[2021-06-28] MEDS ORDERED: HALOPERIDOL LACT 5 MG/ML INJ ONE ×3 (00:18→15:14)
[2021-06-28] MEDS: HALOPERIDOL LACT 5 MG/ML INJ IV PRN ×4 (01:00→15:07)
[2021-06-28] MEDS: MIDAZOLAM HCL 2 MG/2 ML INJ IV PRN ×4 (01:30→11:30)
[2021-06-28] MEDS ORDERED: ACETAMINOPHEN 650MG/RECT SUPP PR ONE (02:15)
[2021-06-28] MEDS: LORazepam 2 MG/ML VIAL IV PRN ×3 (02:56→15:07)
[2021-06-28] MEDS ORDERED: MIDAZOLAM HCL 2 MG/2 ML INJ ONE ×4 (03:18→15:14)
[2021-06-28] MEDS: FENTANYL CITR 100 MCG/2 ML IV PRN ×2 (05:33→10:48)
[2021-06-28 06:18] LABS: Arterial Blood Carboxyhemoglob 2.8 % (0-1.5); Blood Gas Oxyhemoglobin 92.9 % (94-97); Blood O2 Saturation 96.5 % (92-98.5)
[2021-06-28] MEDS ORDERED: FUROSEMIDE 20 MG/ 2ML VIAL IV ONE (06:50)
--- NOTE | 2021-06-28 06:53 | P.PN ---
Date of Service: 06/27/21 Subjective Patient is awake and following commands. Blood cultures were skin contamination. Urine microbiology was less than 100,000 colony-forming units. Clinically, she is doing better. We are attempting to get her weaned off the ventilator. Spoke to ER note nurses. They spoke with Pulmonary on the phone. Wanting to extubate the patient today. She is not really all that awake but hopefully she wakes up more once we get the prep fall turned off. Continue gentle diuresing. Review of Systems No complaints voiced Physical Examination - Vital Signs reviewed - Physical Exam General: Waking up and following commands; mechanical ventilation; Respiratory: Normal air movement, Diminished, basilar crackles Cardiovascular: Regular rate/rhythm, Normal S1 S2 Gastrointestinal: normal bowel sounds, soft and benign, non-distended, no tenderness; obese Musculoskeletal: No clubbing; patient will lower extremity edema Assessment & Plan - Problems (Diagnosis) (1) Respiratory failure Current Visit: Yes Status: Acute (2) Morbid obesity Current Visit: Yes Status: Acute (3) Obesity hypoventilation syndrome Current Visit: Yes Status: Acute (4) Congestive heart failure with ejection fraction of 20% Current Visit: Yes Status: Acute (5) History of atrial fibrillation Current Visit: Yes Status: Acute - Plan Continue with plan of care as mentioned below: 1. Continue with MV; compensated respiratory acidosis; patient able to follow commands once we wean down her sedation. Plan to extubate. 2. Continue monitoring cardiac status; ejection fraction of 37%; hold fluid boluses; may be need to diurese if hemodynamics are stable 3. Monitor volume status closely; strict input and output 4. Resume antiarrhythmics; patient on beta-alexsander and amiodarone at home. 5. Echocardiogram reviewed with Cardiology 6. Continue on Levophed- have tried to wean this off today 7. Start weaning off of sedation and work on spontaneous breathing trial 8. Continue antibiotics; continue with cefepime 9. GI and DVT prophylaxis
[2021-06-28] MEDS: ARFORMOTEROL TARTRATE 15 MCG/2 ML VIAL.NEB NEB SCH ×2 (08:00→20:15)
[2021-06-28 08:23] LABS: Absolute Lymphocytes (CBC) 1.1 K/uL (0.7-4.9); Basophils % 1.1 % (0-1.3); Hematocrit 35.5 % (36.0-45.0); Lymphocytes % 14.5 % (15.3-44.8); MPV 8.5 fL (7.6-11.3); RBC Red Blood Cell Count 4.71 M/uL (3.86-4.86)
[2021-06-28 08:52] LABS: ALT/SGPT 18 U/L (12-78); AST/SGOT 44 U/L (15-37); Alkaline Phosphatase 46 U/L (45-117); BUN Blood Urea Nitrogen 7 mg/dL (7-18); Bicarbonate 40 mmol/L (21-32); Bilirubin Total 2.3 mg/dL (0.2-1.0); Glucose Level 94 mg/dL (74-106); Potassium 3.4 mmol/L (3.5-5.1); Protein, Total 8.1 g/dL (6.4-8.2); Sodium Level 142 mmol/L (136-145)
[2021-06-28] MEDS: FAMOTIDINE 20 MG/2 ML VIAL IV SCH ×2 (09:00→21:00)
[2021-06-28] MEDS: Enoxaparin 120 MG/0.8 ML SYR SQ SCH ×2 (09:00→21:00)
[2021-06-28] MEDS ORDERED: FUROSEMIDE 20 MG/ 2ML VIAL ONE (09:07)
[2021-06-28] MEDS ORDERED: ENOXAPARIN 60 MG/0.6 ML SQ ONE (09:08)
--- NOTE | 2021-06-28 09:21 | RAD REPORT ---
EXAM DESCRIPTION: RAD - Chest Single View - 06/28/2021 6:13 am CLINICAL HISTORY: pneumonia Chest pain. COMPARISON: Chest Single View dated 06/27/2021; Chest Single View dated 06/26/2021; Chest Single View dated 06/24/2021; Chest Single View dated 06/23/2021 FINDINGS: Portable technique limits examination quality. Examination is quite limited due to portable technique and patient positioning. Tip of the endotrache al tube appears at the level of the superior margin the aortic arch. Extensive pulmonary opacities ap pear unchanged. Cardiac size is difficult to assess accurately.
[2021-06-28] MEDS ORDERED: FAMOTIDINE 20 MG/2 ML VIAL IV ONE ×2 (10:15→21:20)
[2021-06-28] MEDS ORDERED: FENTANYL CITR 100 MCG/2 ML ONE (11:07)
[2021-06-28] MEDS: AMIODARONE HCL 900 MG in Dextrose 5%-Water 482 ML IV SCH (12:30)
[2021-06-28] MEDS ORDERED: ARFORMOTEROL TARTRATE 15 MCG/2 ML VIAL.NEB ONE (20:12)
[2021-06-29] MEDS ORDERED: LIDOCAINE VISCOUS 2% SOLN 15 ML UDC ONE (00:31)
[2021-06-29] MEDS ORDERED: AMIODARONE IN DEXTROSE,ISO-OSM 360 MG/200 ML BAG IV ONE (02:10)
--- NOTE | 2021-06-29 05:23 | P.PN ---
Date of Service: 06/28/21 Subjective Patient was fully awake and following commands. Tried to get repeat spontaneous breathing trial. It was not done once again until later in the day but she had already being given Versed said and Haldol prior to the repeat breathing trial at 1700. Patient really did not fail the spontaneous breathing trial as much as it was not done off sedation. She was overly sedated by the evening. When she is awake she is following commands completely and her tidal volumes are in the 400 range. If I ask her to take a deep breath she can get into the 500 range. Will re-attempt in the morning after we whole sedation. Repeat ABGs in the morning. Patient is fully awake and following commands and is requesting to be extubated. Will re-attempt in the morning. Review of Systems No complaints voiced Physical Examination - Vital Signs reviewed - Physical Exam General: Waking up and following commands; mechanical ventilation; Respiratory: Normal air movement, Diminished, basilar crackles Cardiovascular: Regular rate/rhythm, Normal S1 S2 Gastrointestinal: normal bowel sounds, soft and benign, non-distended, no tenderness; obese Musculoskeletal: No clubbing; patient will lower extremity edema Assessment & Plan - Problems (Diagnosis) (1) Respiratory failure Current Visit: Yes Status: Acute (2) Morbid obesity Current Visit: Yes Status: Acute (3) Obesity hypoventilation syndrome Current Visit: Yes Status: Acute (4) Congestive heart failure with ejection fraction of 20% Current Visit: Yes Status: Acute (5) History of atrial fibrillation Current Visit: Yes Status: Acute - Plan Continue with plan of care as mentioned below: 1. Continue with MV; compensated respiratory acidosis; patient able to follow commands; tidal volumes of 4-500 when fully awake. When she is sedated and we tried to do a spontaneous breathing trial she failed because she becomes apneic from over-sedation. Plan to repeat spontaneous breathing trial in the morning 2. Continue monitoring cardiac status; ejection fraction of 37%; hold fluid boluses; low-dose of Lasix given 3. Monitor volume status closely; strict input and output 4. Will need to switch amiodarone to oral once extubated or we can give it through the feeding tube 5. Echocardiogram reviewed with Cardiology 6. Patient is off of Levophed 7. Stop sedation in early am and repeat spontaneous breathing trial 8. Continue antibiotics; continue with cefepime 9. GI and DVT prophylaxis CC TIME 60 MIN
[2021-06-29] MEDS ORDERED: FUROSEMIDE 20 MG/ 2ML VIAL IV ONE (05:25)
[2021-06-29] MEDS ORDERED: ALBUMIN HUMAN 25% 50 ML IV ONE ×2 (05:25→08:10)
[2021-06-29 06:47] LABS: Arterial Blood Carboxyhemoglob 2.6 % (0-1.5); Blood Gas Oxyhemoglobin 93.8 % (94-97); Blood O2 Saturation 97.1 % (92-98.5)
[2021-06-29 07:14] LABS: ALT/SGPT 19 U/L (12-78); Albumin 2.6 g/dL (3.4-5.0); Alkaline Phosphatase 43 U/L (45-117); BUN Blood Urea Nitrogen 7 mg/dL (7-18); Bicarbonate 39 mmol/L (21-32); Bilirubin Total 2.1 mg/dL (0.2-1.0); Glucose Level 88 mg/dL (74-106); NT PRO-BNP 736 pg/mL (<125); Protein, Total 7.3 g/dL (6.4-8.2); Sodium Level 142 mmol/L (136-145)
[2021-06-29 07:18] LABS: AST/SGOT 40 U/L (15-37); Magnesium 1.9 mg/dL (1.8-2.4); Potassium 3.2 mmol/L (3.5-5.1)
[2021-06-29 07:22] LABS: Absolute Lymphocytes (CBC) 0.8 K/uL (0.7-4.9); Basophils % 0.8 % (0-1.3); Hematocrit 33.6 % (36.0-45.0); Lymphocytes % 10.8 % (15.3-44.8); MPV 8.7 fL (7.6-11.3); RBC Red Blood Cell Count 4.43 M/uL (3.86-4.86)
[2021-06-29] MEDS: AMIODARONE HCL 900 MG in Dextrose 5%-Water 482 ML IV SCH (08:00)
[2021-06-29] MEDS: ARFORMOTEROL TARTRATE 15 MCG/2 ML VIAL.NEB NEB SCH ×2 (08:05→20:00)
[2021-06-29] MEDS ORDERED: FAMOTIDINE 20 MG/2 ML VIAL IV ONE ×2 (08:10→20:15)
[2021-06-29] MEDS ORDERED: FUROSEMIDE 20 MG/ 2ML VIAL ONE (08:10)
[2021-06-29] MEDS ORDERED: ENOXAPARIN 60 MG/0.6 ML SQ ONE (08:10)
[2021-06-29] MEDS ORDERED: ARFORMOTEROL TARTRATE 15 MCG/2 ML VIAL.NEB ONE ×2 (08:19→21:37)
[2021-06-29] MEDS: Enoxaparin 120 MG/0.8 ML SYR SQ SCH ×2 (09:00→21:00)
[2021-06-29] MEDS: FAMOTIDINE 20 MG/2 ML VIAL IV SCH ×2 (09:00→21:00)
--- NOTE | 2021-06-29 09:10 | RAD REPORT ---
EXAM DESCRIPTION: RAD - Chest Single View - 06/29/2021 7:00 am CLINICAL HISTORY: pneumonia COMPARISON: Portable June 28, portable June 27 TECHNIQUE: AP portable chest image was obtained 06/29/2021 7:00 am . FINDINGS: Exam remains quite limited due to patient positioning, body habitus affects and portable t echnique. The right shoulder and neck region obscured by soft tissues. Right apex is partially obscur ed. Similar limitations exist on preceding studies. Endotracheal tube tip is T4 level which is mid aortic arch. This is approximately 2.5 cm above the ca hector, good positioning. Improved aeration of the right lung field noted. Right base opacification has improved significantly. Extensive left hemithorax opacification remains. Findings are not substantially different from prior study. Heart is obscured by left lung field opacification and patient rotation. No evaluation of hea rt size can't be made. Upper lobe vasculature also obscured by the same limitations. No measurable pleural effusions seen. No measurable pneumothorax. IMPRESSION: Extensive left hemithorax opacification not substantially different from comparison. Improved aeration of the right lung field with significant clearing of the right base opacification. Endotracheal tube is 2.5 cm above the trae in good position.
[2021-06-29] MEDS ORDERED: POTASSIUM CL 40 MEQ in NA CHLORIDE 0.9% 500 ML IV SCH (12:00)
--- NOTE | 2021-06-29 12:01 | P.PN ---
Subjective Date of Service: 06/29/21 Primary Care Provider: Unknown Chief Complaint: Respiratory failure, A. fib Subjective: No new changes, No C/O voiced (Off sedation now, patient communicative although still intubated orally) Physical Examination - Vital Signs Temperature: 98.9 F Blood Pressure: 125/74 Pulse: 110 Respirations: 16 Pulse Ox (%): 98 - Physical Exam General: Alert, In no apparent distress, Cooperative HEENT: Atraumatic, Normocephalic, PERRLA Neck: Supple, 2+ carotid pulse no bruit, JVD not distended Respiratory: Normal air movement, Diminished Cardiovascular: No edema, Regular rate/rhythm, Normal S1 S2 Gastrointestinal: Normal bowel sounds, Soft and benign, Non-distended Neurological: Normal tone, Sensation intact, Cranial nerves 3-12 intact - Studies Microbiology Data (last 24 hrs): 06/24/21 00:35 Blood - Blood Aerobic Blood Culture - Final No growth in 5 days. 06/24/21 00:35 Blood - Blood Anaerobic Blood Culture - Final No growth in 5 days. 06/24/21 00:05 Blood - Blood Aerobic Blood Culture - Final 06/24/21 00:05 Blood - Blood Blood Culture Gram Stain - Final 06/24/21 00:05 Blood - Blood Anaerobic Blood Culture - Final No growth in 5 days. Assessment And Plan Physician Review: Patient Assessed, Agree with Above Assessment and Plan Physician Review Additional Text: Assessment & Plan - Problems (Diagnosis) (1) Respiratory failure Current Visit: Yes Status: Acute (2) Morbid obesity Current Visit: Yes Status: Acute (3) Obesity hypoventilation syndrome Current Visit: Yes Status: Acute (4) Congestive heart failure with ejection fraction of 20% Current Visit: Yes Status: Acute (5) History of atrial fibrillation Current Visit: Yes Status: Acute - Plan ABG reviewed, pH at normal range based elevated PCO2 with compensatory metabolic alkalosis Likely PCO2 at patient baseline Currently on spontaneous breathing trial, status post switch temporarily to CPAP mode With return back to pressure support mode for now Plan for extubation later today We will replace potassium Follow magnesium and phosphorus level Continue amiodarone drip and switch to p.o. once extubated ejection fraction of 37%; hold fluid boluses; status post as needed low-dose Lasix Previously on Levophed. Currently off Continue empiric antibiotics with cefepime Continue GI DVT prophylaxis
[2021-06-29] MEDS: FENTANYL CITR 100 MCG/2 ML IV PRN (20:00)
[2021-06-29] MEDS ORDERED: FENTANYL CITR 100 MCG/2 ML ONE (23:04)
[2021-06-30] MEDS ORDERED: LIDOCAINE VISCOUS 2% SOLN 15 ML UDC ONE (00:07)
[2021-06-30] MEDS: FENTANYL CITR 100 MCG/2 ML IV PRN (01:12)
[2021-06-30 04:04] LABS: Absolute Lymphocytes (CBC) 0.6 K/uL (0.7-4.9); Basophils % 0.7 % (0-1.3); Hematocrit 33.5 % (36.0-45.0); Lymphocytes % 9.8 % (15.3-44.8); MPV 8.7 fL (7.6-11.3)
[2021-06-30 04:21] LABS: ALT/SGPT 19 U/L (12-78); AST/SGOT 29 U/L (15-37); Albumin 2.8 g/dL (3.4-5.0); Alkaline Phosphatase 40 U/L (45-117); BUN Blood Urea Nitrogen 6 mg/dL (7-18); Bicarbonate 40 mmol/L (21-32); Bilirubin Total 1.7 mg/dL (0.2-1.0); Glucose Level 115 mg/dL (74-106); Potassium 3.1 mmol/L (3.5-5.1); Protein, Total 7.7 g/dL (6.4-8.2); Sodium Level 142 mmol/L (136-145)
--- NOTE | 2021-06-30 06:33 | P.PN ---
Subjective Date of Service: 06/30/21 Primary Care Provider: Unknown Chief Complaint: Respiratory failure, A. fib Subjective: Other (Slight improvement noted. Currently on 4 L. Patient morbidly obese.) Physical Examination - Vital Signs Temperature: 98.6 F Blood Pressure: 100/85 Pulse: 113 Respirations: 20 Pulse Ox (%): 98 Assessment & Plan Discharge Plan: LTAC Plan to discharge in: 48 Hours Physician Review Additional Text: COVID: Negative CT chest/thorax: FINDINGS: Brain parenchyma, ventricles, dura, meninges, and extra-axial spaces: Ventricles and sulci are normal. No abnormal attenuation of brain parenchyma is present. No acute intracranial hemorrhage or abnormal extra-axial fluid collections are present. Vascular structures: No hyperdense arteries or veins. Calvarium, mastoid air cells, paranasal sinuses and orbits: The calvarium is normal. A 2.5 cm cystic lesion of the posterior right scalp likely represents a sebaceous cyst. Low density fluid in the left temporal scalp measures up to 1.1 cm in thickness. Overall, this fluid measures 6.7 x 1.1 x 9.7 cm. Large left mastoid effusion. Severe right maxillary and ethmoid sinus mucosal thickening. Orbital structures are unremarkable. IMPRESSION: 1. No acute intracranial abnormality. 2. Low-density fluid in the left temporal scalp could represent hematoma, seroma, or less likely abscess. 3. Polysinusitis and large left mastoid effusion. EXAM DESCRIPTION: CT Cervical Spine COMPARISON: None. CLINICAL HISTORY: [facility] MAIN respiratory failure TECHNIQUE: Axial CT images were obtained through the entire cervical spine without contrast. Sagittal and coronal reconstructions are provided. Automated exposure control was utilized on this examination as a dose lowering technique. FINDINGS: Vertebrae: Vertebral statures and alignment are normal. No acute fracture, dislocation or destructive osseous process is present. Spinal canal, foramina, and facet joints: No significant spinal canal or foraminal stenoses. No significant facet arthropathy. Paraspinous soft-tissues: Normal. Thyroid: A cystic lesion adjacent to the left thyroid gland measures 7.8 x 4.5 x 3.8 cm. Other Findings: None. IMPRESSION: Large fluid collection of the left neck adjacent to the left thyroid gland. This could represent a thyroid nodule or other fluid collection within the neck. This results in rightward displacement of the trachea. Consider further evaluation with CT of the neck with contrast or ultrasound. EXAM DESCRIPTION: CTA Chest, Pulmonary Embolus Protocol COMPARISON: None. CLINICAL HISTORY: [facility] MAIN respiratory failure TECHNIQUE: CT images through the chest with IV contrast using the pulmonary embolus protocol. Multiplanar reformats. MIPS reformats are provided. Auto mated exposure control was utilized on this examination as a dose lowering technique. FINDINGS: Pulmonary arteries and vascular: Diagnostic quality bolus. No filling defects. The right main pulmonary measures 4.6 cm. Heart and mediastinum: Cardiomegaly. No lymphadenopathy. Thyroid gland: Visualized portions are normal. Lungs: Mild groundglass opacities are noted in both lungs. Airways: No filling defects. No bronchiectasis. The endotracheal tube tip is 1.4 cm from the trae. The enteric tube tip projects into the gastric body out of the [id number]. Pleura: No pneumothorax. Large bilateral pleural effusions. Dependent atelectasis. Subphrenic structures: Within normal limits. Musculoskeletal and soft tissues: Within normal limits for age. IMPRESSION: 1. No definite large proximal pulmonary emboli. Evaluation for branch emboli is limited by bolus timing and body habitus. Dilated main pulmonary artery is compatible with pulmonary arterial hypertension. 2. Cardiomegaly with large pleural effusions, dependent atelectasis, and scattered mild groundglass opacities. These opacities likely represent pulmonary edema and/or atelectasis. Pneumonia is not excluded. CT head and neck: Echocardiogram: MEASUREMENTS (cm) DIASTOLIC (NORMALS) SYSTOLIC (NORMALS) IVSd 1.1 (0.6-1.2) LA Diam 3.4 (1.9-4.0) LVEF 37% LVIDd 4.7 (3.5-5.7) LVIDs 3.9 (2.0-3.5) %FS 18% LVPWd 1.2 (0.6-1.2) Ao Diam 3.1 (2.0-3.7) 2 DIMENSIONAL ASSESSMENT: RIGHT ATRIUM: LEFT ATRIUM: RIGHT VENTRICLE: LEFT VENTRICLE: TRICUSPID VALVE: MITRAL VALVE: PULMONIC VALVE: AORTIC VALVE: PERICARDIAL EFFUSION: AORTIC ROOT: LEFT VENTRICULAR WALL MOTION: DOPPLER/COLOR FLOW: COMMENTS: VERY LIMITED WINDOWS. LEFT VENTRICULAR EJECTION FRACTION APPEARS REDUCED BUT NOTABLE TO QUALIFY EJECTION FRACTION OR EVALUATE WALL MOTION DUE TO POOR WINDOWS. Follow-up CT chest: COMPARISON: 06/24/2021 TECHNIQUE: Axial 5 mm thick images of the chest were obtained without IV contrast. All CT scans are performed using dose optimization technique as appropriate and may include automated exposure control or mA/KV adjustment according to patient size. FINDINGS: Consolidative airspace disease bilaterally within the lower lobes and left upper lobe. No edema identified. No fractures are identified. Small effusions are present. Goiter. No abnormal mediastinal or hilar masses or lymphadenopathy seen. Cardiomegaly. No pericardial effusion. Hepatomegaly. IMPRESSION: Basilar consolidation, left upper lobe consolidation, and small effusions concerning for pneumonia/pneumonitis, possibly secondary to aspiration. The aeration was worsened since 06/24/21. Physical exam: General: Waking up and following commands; mechanical ventilation; Respiratory: Normal air movement, Diminished, basilar crackles Cardiovascular: Regular rate/rhythm, Normal S1 S2 Gastrointestinal: normal bowel sounds, soft and benign, non-distended, no ten derness; obese Musculoskeletal: No clubbing; patient will lower extremity edema Impression: Dyspnea secondary to acute respiratory failure with hypercapnia related to acute on chronic systolic CHF with ejection fraction of 37% % complicated with obesity hypoventilation syndrome Atrial fibrillation on chronic anticoagulation therapy GERD Anemia of chronic disease Morbid obesity, BMI 82.3 Plan: Continue with pulmonology recommendations. Patient was extubated the other day. Patient remained stable on 4 L per nasal cannula. We will discuss with cardiology about switching over to oral amiodarone. Continue DVT prophylaxisXarelto. Patient previously on Coumadin. Will recommend Xarelto at discharge due to A. fib. Pulmonology added Diamox. Pulmonology discontinued antibiotics as aspiration pneumonia not likely. Continue with Brovana. Continue IV antibiotic therapy. Will monitor blood and urine culture. Will provide incentive spirometer. Will consult physical therapy and Occupational Therapy. Will start thiamine, folic acid and Pepcid. We will check iron and B12 studies Echocardiogram reviewed. Ejection fraction 37%. Will discuss with pulmonology and cardiology at length. Patient likely would benefit with long-term acute care facility placement. This was discussed in detail with patient. Patient agrees. We will pursue long-term acute care facility placement CODE STATUS: Full code DVT prophylaxis: Xarelto Advanced care [id number] minutes: LTAC placement Time Spent Managing Pts Care (In Minutes): 55
[2021-06-30] MEDS: AMIODARONE HCL 900 MG in Dextrose 5%-Water 482 ML IV SCH (08:00)
[2021-06-30] MEDS: acetaZOLAMIDE 250 MG TAB PO SCH (09:00)
--- NOTE | 2021-06-30 09:07 | P.PN ---
Subjective Date of Service: 06/30/21 Primary Care Provider: Unknown Chief Complaint: Respiratory failure, A. fib Subjective: Improving (Pt was extubated am/ Doign well on [place] O2) Review of Systems General: Weakness Respiratory: Shortness of Breath Physical Examination - Vital Signs Temperature: 98.6 F Blood Pressure: 100/85 Pulse: 113 Respirations: 20 Pulse Ox (%): 98 - Physical Exam General: Alert, Oriented x3, Cooperative Assessment & Plan - Problems (Diagnosis) (1) Respiratory failure with hypercapnia Current Visit: Yes Status: Acute Plan: Extubated yesterday on [place] O2/ LAbs rev/CXRY opacificationof Left hemithorax/ Repeat CT/change to PO xarelto and add LD diamox/Po Amodarone/poss reduced LVEF/ poor qulaity Qualifiers: Chronicity: acute on chronic Qualified Code(s): J96.22 - Acute and chronic respiratory failure with hypercapnia Physician Review: Patient Assessed, Agree with Above Assessment and Plan
[2021-06-30] MEDS: ARFORMOTEROL TARTRATE 15 MCG/2 ML VIAL.NEB NEB SCH ×2 (09:20→21:08)
[2021-06-30] MEDS ORDERED: ENOXAPARIN 100 MG/ML SYR SQ ONE (09:29)
[2021-06-30] MEDS ORDERED: ENOXAPARIN 30 MG/0.3 ML SQ ONE (09:30)
[2021-06-30] MEDS ORDERED: FAMOTIDINE 20 MG/2 ML VIAL IV ONE (09:30)
[2021-06-30] MEDS ORDERED: ARFORMOTEROL TARTRATE 15 MCG/2 ML VIAL.NEB ONE ×2 (09:42→21:26)
--- NOTE | 2021-06-30 10:58 | RAD REPORT ---
EXAM DESCRIPTION: CT - Thorax Wo Patel - 06/30/2021 10:23 am CLINICAL HISTORY: LEft opacification COMPARISON: 06/24/2021 TECHNIQUE: Axial 5 mm thick images of the chest were obtained without IV contrast. All CT scans are performed using dose optimization technique as appropriate and may include automated exposure control or mA/KV adjustment according to patient size. FINDINGS: Consolidative airspace disease bilaterally within the lower lobes and left upper lobe. No edema identified. No fractures are identified. Small effusions are present. Goiter. No abnormal mediastinal or hilar masses or lymphadenopathy seen. Cardiomegaly. No pericardial effusio n. Hepatomegaly. IMPRESSION: Basilar consolidation, left upper lobe consolidation, and small effusions concerning for pneumonia/pneumonitis, possibly secondary to aspiration. The aeration was worsened since 06/24/21.
[2021-06-30] MEDS: RIVAROXABAN 20 MG TABLET PO SCH (17:00)
[2021-06-30] MEDS ORDERED: RIVAROXABAN 20 MG TABLET PO ONE (17:34)
[2021-06-30] MEDS: FAMOTIDINE 20 MG TAB PO SCH (21:00)
[2021-06-30] MEDS ORDERED: FAMOTIDINE 20 MG TAB ONE (21:48)
[2021-07-01 03:20] LABS: Absolute Lymphocytes (CBC) 0.7 K/uL (0.7-4.9); Basophils % 0.6 % (0-1.3); Hematocrit 32.7 % (36.0-45.0); Lymphocytes % 13.3 % (15.3-44.8); MPV 8.6 fL (7.6-11.3); RBC Red Blood Cell Count 4.23 M/uL (3.86-4.86)
[2021-07-01 04:19] LABS: ALT/SGPT 18 U/L (12-78); AST/SGOT 24 U/L (15-37); Albumin 2.7 g/dL (3.4-5.0); Alkaline Phosphatase 39 U/L (45-117); BUN Blood Urea Nitrogen 5 mg/dL (7-18); Bilirubin Total 1.4 mg/dL (0.2-1.0); Ferritin 68.7 ng/mL (8-388); Glucose Level 99 mg/dL (74-106); Protein, Total 7.3 g/dL (6.4-8.2); Sodium Level 142 mmol/L (136-145); Transferrin 214 mg/dL (200-360)
[2021-07-01 04:23] LABS: Bicarbonate 41 mmol/L (21-32)
--- NOTE | 2021-07-01 06:29 | P.PN ---
Subjective Date of Service: 07/01/21 Primary Care Provider: Unknown Chief Complaint: Respiratory failure, A. fib Subjective: Doing well (Currently on 4 L per nasal cannula. Overall stable) Physical Examination - Vital Signs Temperature: 98 F Blood Pressure: 128/70 Pulse: 102 Respirations: 19 Pulse Ox (%): 92 Assessment & Plan Discharge Plan: Other (Inpatient rehab) Plan to discharge in: 48 Hours Physician Review Additional Text: COVID: Negative CT chest/thorax: FINDINGS: Brain parenchyma, ventricles, dura, meninges, and extra-axial spaces: Ventricles and sulci are normal. No abnormal attenuation of brain parenchyma is present. No acute intracranial hemorrhage or abnormal extra-axial fluid collections are present. Vascular structures: No hyperdense arteries or veins. Calvarium, mastoid air cells, paranasal sinuses and orbits: The calvarium is normal. A 2.5 cm cystic lesion of the posterior right scalp likely represents a sebaceous cyst. Low density fluid in the left temporal scalp measures up to 1.1 cm in thickness. Overall, this fluid measures 6.7 x 1.1 x 9.7 cm. Large left mastoid effusion. Severe right maxillary and ethmoid sinus mucosal thickening. Orbital structures are unremarkable. IMPRESSION: 1. No acute intracranial abnormality. 2. Low-density fluid in the left temporal scalp could represent hematoma, seroma, or less likely abscess. 3. Polysinusitis and large left mastoid effusion. EXAM DESCRIPTION: CT Cervical Spine COMPARISON: None. CL[facility] H[facility] respiratory failure TECHNIQUE: Axial CT images were obtained through the entire cervical spine without contrast. Sagittal and coronal reconstructions are provided. Automated exposure control was utilized on this examination as a dose lowering technique. FINDINGS: Vertebrae: Vertebral statures and alignment are normal. No acute fracture, dislocation or destructive osseous process is present. Spinal canal, foramina, and facet joints: No significant spinal canal or foraminal stenoses. No significant facet arthropathy. Paraspinous soft-tissues: Normal. Thyroid: A cystic lesion adjacent to the left thyroid gland measures 7.8 x 4.5 x 3.8 cm. Other Findings: None. IMPRESSION: Large fluid collection of the left neck adjacent to the left thyroid gland. This could represent a thyroid nodule or other fluid collection within the neck. This results in rightward displacement of the trachea. Consider further evaluation with CT of the neck with contrast or ultrasound. EXAM DESCRIPTION: CTA Chest, Pulmonary Embolus Protocol COMPARISON: None. CLINICAL HISTORY: [facility] MA[facility] respiratory failure TECHNIQUE: CT images through the chest with IV contrast using the pulmonary embolus protocol. Multiplanar reformats. MIPS reformats are provided. Automated exposure control was utilized on this examination as a dose lowering technique. FINDINGS: Pulmonary arteries and vascular: Diagnostic quality bolus. No filling defects. The right main pulmonary measures 4.6 cm. Heart and mediastinum: Cardiomegaly. No lymphadenopathy. Thyroid gland: Visualized portions are normal. Lungs: Mild groundglass opacities are noted in both lungs. Airways: No filling defects. No bronchiectasis. The endotracheal tube tip is 1.4 cm from the trae. The enteric tube tip projects into the gastric body out of the [id number]. Pleura: No pneumothorax. Large bilateral pleural effusions. Dependent atelectasis. Subphrenic structures: Within normal limits. Musculoskeletal and soft tissues: Within normal limits for age. IMPRESSION: 1. No definite large proximal pulmonary emboli. Evaluation for branch emboli is limited by bolus timing and body habitus. Dilated main pulmonary artery is compatible with pulmonary arterial hypertension. 2. Cardiomegaly with large pleural effusions, dependent atelectasis, and scattered mild groundglass opacities. These opacities likely represent pulmonary edema and/or atelectasis. Pneumonia is not excluded. CT head and neck: Echocardiogram: MEASUREMENTS (cm) DIASTOLIC (NORMALS) SYSTOLIC (NORMALS) IVSd 1.1 (0.6-1.2) LA Diam 3.4 (1.9-4.0) LVEF 37% LVIDd 4.7 (3.5-5.7) LVIDs 3.9 (2.0-3.5) %FS 18% LVPWd 1.2 (0.6-1.2) Ao Diam 3.1 (2.0-3.7) 2 DIMENSIONAL ASSESSMENT: RIGHT ATRIUM: LEFT ATRIUM: RIGHT VENTRICLE: LEFT VENTRICLE: TRICUSPID VALVE: MITRAL VALVE: PULMONIC VALVE: AORTIC VALVE: PERICARDIAL EFFUSION: AORTIC ROOT: LEFT VENTRICULAR WALL MOTION: DOPPLER/COLOR FLOW: COMMENTS: VERY LIMITED WINDOWS. LEFT VENTRICULAR EJECTION FRACTION APPEARS REDUCED BUT NOTABLE TO QUALIFY EJECTION FRACTION OR EVALUATE WALL MOTION DUE TO POOR WINDOWS. Follow-up CT chest: COMPARISON: 06/24/2021 TECHNIQUE: Axial 5 mm thick images of the chest were obtained without IV contrast. All CT scans are performed using dose optimization technique as appropriate and may include automated exposure control or mA/KV adjustment according to patient size. FINDINGS: Consolidative airspace disease bilaterally within the lower lobes and left upper lobe. No edema identified. No fractures are identified. Small effusions are present. Goiter. No abnormal mediastinal or hilar masses or lymphadenopathy seen. Cardiomegaly. No pericardial effusion. Hepatomegaly. IMPRESSION: Basilar consolidation, left upper lobe consolidation, and small effusions concerning for pneumonia/pneumonitis, possibly secondary to aspiration. The aeration was worsened since 06/24/21. Follow up CXR 07/01/2021: COMPARISON: Chest Single View dated 06/29/2021; Chest Single View dated 06/28/2021; Chest Single View dated 06/27/2021; Chest Single View dated 06/26/2021; Thorax Wo Con dated 06/30/2021 FINDINGS: There complete opacification of left hemithorax which is similar to 06/29/2021. There are diffuse airspace opacities throughout the right lung. The cardiac silhouette is largely obscured. No fractures seen. Very limited due to patient body habitus. IMPRESSION: Significantly limited due to patient body habitus. Near complete consolidation in the left lung that is similar and increasing right lung airspace disease which could reflect combination of atelectasis and pneumonia/pneumonitis. Physical exam: General: Patient alert, cooperative. Follows commands. Respiratory: Normal air movement, Diminished, basilar crackles patient currently stable on 4 L per nasal cannula Cardiovascular: Regular rate/rhythm, Normal S1 S2 Gastrointestinal: Morbidly obese. Overall stable. Musculoskeletal: Patient with good range of motion. Patient appears to be mainly bedbound. Impression: Dyspnea secondary to acute respiratory failure with hypercapnia related to acute on chronic systolic CHF with ejection fraction of 37% % complicated with obesity hypoventilation syndrome Atrial fibrillation on chronic anticoagulation therapy GERD Anemia of chronic disease with iron deficiency anemia Morbid obesity, BMI 82.3 Plan: Dyspnea secondary to acute respiratory failure with hypercapnia related to acute on chronic systolic CHF with ejection fraction of 37% % complicated with obesity hypoventilation syndrome: Patient remained stable at this time. Currently on 4 L per nasal cannula. Pulmonology recommended to continue Diamox 250 mg daily. Continue to wean off oxygen. Encourage incentive spirometer. Physical therapy and Occupational Therapy ordered. Discussed with social work faculty member and patient about the possibility of sending patient to rehab facility. [facility] may be able to take care of the patient due to her body habitus. Await approval. Atrial fibrillation on chronic anticoagulation therapy: Cardiology has changed her IV amiodarone to oral amiodarone 400 mg 1 pill twice daily. Continue with Xarelto 20 mg daily. GERD: Continue with Pepcid. Anemia of chronic disease with iron deficiency anemia: We will start iron 325 mg 1 pill twice daily. Will provide stool softener as needed. Morbid obesity, BMI 82.3: Physical therapy and Occupational Therapy ordered to evaluate. Patient awaiting approval for inpatient rehab. Patient will need bariatric evaluation in the future. CODE STATUS: Full code DVT prophylaxis: Xarelto Advanced care [id number] minutes: [facility] Time Spent Managing Pts Care (In Minutes): 55
--- NOTE | 2021-07-01 07:06 | RAD REPORT ---
EXAM DESCRIPTION: RAD - Chest Single View - 07/01/2021 5:54 am CLINICAL HISTORY: Follow-up shortness of breath/CHF COMPARISON: Chest Single View dated 06/29/2021; Chest Single View dated 06/28/2021; Chest Single View dated 06/27/2021; Chest Single View dated 06/26/2021; Thorax Wo Con dated 06/30/2021 FINDINGS: There complete opacification of left hemithorax which is similar to 06/29/2021. There are diffuse airspace opacities throughout the right lung. The cardiac silhouette is largely obscured. No fractures seen. Very limited due to patient body habitus. IMPRESSION: Significantly limited due to patient body habitus. Near complete consolidation in the le ft lung that is similar and increasing right lung airspace disease which could reflect combination of atelectasis and pneumonia/pneumonitis.
[2021-07-01] MEDS: AMIODARONE HCL 900 MG in Dextrose 5%-Water 482 ML IV SCH (08:00)
[2021-07-01] MEDS: ARFORMOTEROL TARTRATE 15 MCG/2 ML VIAL.NEB NEB SCH ×2 (08:02→19:20)
[2021-07-01] MEDS ORDERED: THIAMINE HCL 100 MG TABLET ONE (08:20)
[2021-07-01] MEDS ORDERED: FOLIC ACID 1 MG TABLET ONE (08:20)
[2021-07-01] MEDS ORDERED: FAMOTIDINE 20 MG TAB ONE ×2 (08:20→20:10)
[2021-07-01] MEDS ORDERED: POTASSIUM 25 MEQ EFFERV TAB PO ONE (08:21)
[2021-07-01] MEDS ORDERED: ARFORMOTEROL TARTRATE 15 MCG/2 ML VIAL.NEB ONE ×2 (08:24→19:43)
[2021-07-01] MEDS: FOLIC ACID 1 MG TABLET PO SCH (09:00)
[2021-07-01] MEDS: FAMOTIDINE 20 MG TAB PO SCH ×2 (09:00→20:25)
[2021-07-01] MEDS: acetaZOLAMIDE 250 MG TAB PO SCH (09:00)
[2021-07-01] MEDS: THIAMINE HCL 100 MG TABLET PO SCH (09:00)
[2021-07-01] MEDS ORDERED: POTASSIUM 25 MEQ EFFERV TAB ONE (09:57)
[2021-07-01] MEDS ORDERED: acetaZOLAMIDE 250 MG TAB ONE (09:57)
[2021-07-01] MEDS: AMIODARONE HCL 200 MG TAB PO SCH ×2 (09:58→20:25)
[2021-07-01] MEDS ORDERED: AMIODARONE HCL 200 MG TAB ONE ×2 (10:07→20:10)
[2021-07-01] MEDS ORDERED: DOCUSATE NA 100 MG CAP PO PRN (10:10)
[2021-07-01] MEDS: RIVAROXABAN 20 MG TABLET PO SCH (17:00)
[2021-07-01] MEDS ORDERED: RIVAROXABAN 20 MG TABLET PO ONE (17:44)
[2021-07-02 02:40] LABS: Absolute Lymphocytes (CBC) 0.8 K/uL (0.7-4.9); Basophils % 0.7 % (0-1.3); Hematocrit 34.2 % (36.0-45.0); Lymphocytes % 14.5 % (15.3-44.8); MPV 8.7 fL (7.6-11.3); RBC Red Blood Cell Count 4.44 M/uL (3.86-4.86)
[2021-07-02 02:58] LABS: ALT/SGPT 18 U/L (12-78); AST/SGOT 19 U/L (15-37); Albumin 2.7 g/dL (3.4-5.0); Alkaline Phosphatase 42 U/L (45-117); BUN Blood Urea Nitrogen 4 mg/dL (7-18); Bicarbonate 40 mmol/L (21-32); Bilirubin Total 1.2 mg/dL (0.2-1.0); Glucose Level 106 mg/dL (74-106); Magnesium 1.9 mg/dL (1.8-2.4); Potassium 3.2 mmol/L (3.5-5.1); Protein, Total 7.5 g/dL (6.4-8.2); Sodium Level 141 mmol/L (136-145)
--- NOTE | 2021-07-02 06:25 | P.PN ---
Subjective Date of Service: 07/02/21 Primary Care Provider: Unknown Chief Complaint: Respiratory failure, A. fib Subjective: Doing well (Patient reports improvement) Physical Examination - Vital Signs Temperature: 97.1 F Blood Pressure: 112/68 Pulse: 98 Respirations: 18 Pulse Ox (%): 96 Assessment & Plan Discharge Plan: Other ([facility]) Plan to discharge in: 24 Hours Physician Review Additional Text: COVID: Negative CT chest/thorax: FINDINGS: Brain parenchyma, ventricles, dura, meninges, and extra-axial spaces: Ventricles and sulci are normal. No abnormal attenuation of brain parenchyma is present. No acute intracranial hemorrhage or abnormal extra-axial fluid collections are present. Vascular structures: No hyperdense arteries or veins. Calvarium, mastoid air cells, paranasal sinuses and orbits: The calvarium is normal. A 2.5 cm cystic lesion of the posterior right scalp likely represents a sebaceous cyst. Low density fluid in the left temporal scalp measures up to 1.1 cm in thickness. Overall, this fluid measures 6.7 x 1.1 x 9.7 cm. Large left mastoid effusion. Severe right maxillary and ethmoid sinus mucosal thickening. Orbital structures are unremarkable. IMPRESSION: 1. No acute intracranial abnormality. 2. Low-density fluid in the left temporal scalp could represent hematoma, seroma, or less likely abscess. 3. Polysinusitis and large left mastoid effusion. EXAM DESCRIPTION: CT Cervical Spine COMPARISON: None. CLINICAL HISTORY: [facility] MAIN respiratory failure TECHNIQUE: Axial CT images were obtained through the entire cervical spine without contrast. Sagittal and coronal reconstructions are provided. Automated exposure control was utilized on this examination as a dose lowering technique. FINDINGS: Vertebrae: Vertebral statures and alignment are normal. No acute fracture, dislocation or destructive osseous process is present. Spinal canal, foramina, and facet joints: No significant spinal canal or foraminal stenoses. No significant facet arthropathy. Paraspinous soft-tissues: Normal. Thyroid: A cystic lesion adjacent to the left thyroid gland measures 7.8 x 4.5 x 3.8 cm. Other Findings: None. IMPRESSION: Large fluid collection of the left neck adjacent to the left thyroid gland. This could represent a thyroid nodule or other fluid collection within the neck. This results in rightward displacement of the trachea. Consider further evaluation with CT of the neck with contrast or ultrasound. EXAM DESCRIPTION: CTA Chest, Pulmonary Embolus Protocol COMPARISON: None. CLINICAL HISTORY: [facility] MAIN respiratory failure TECHNIQUE: CT images through the chest with IV contrast using the pulmonary embolus protocol. Multiplanar reformats. MIPS reformats are provided. Automated exposure control was utilized on this examination as a dose lowering technique. FINDINGS: Pulmonary arteries and vascular: Diagnostic quality bolus. No filling defects. The right main pulmonary measures 4.6 cm. Heart and mediastinum: Cardiomegaly. No lymphadenopathy. Thyroid gland: Visualized portions are normal. Lungs: Mild groundglass opacities are noted in both lungs. Airways: No filling defects. No bronchiectasis. The endotracheal tube tip is 1.4 cm from the trae. The enteric tube tip projects into the gastric body out of the [id number]. Pleura: No pneumothorax. Large bilateral pleural effusions. Dependent atelectasis. Subphrenic structures: Within normal limits. Musculoskeletal and soft tissues: Within normal limits for age. IMPRESSION: 1. No definite large proximal pulmonary emboli. Evaluation for branch emboli is limited by bolus timing and body habitus. Dilated main pulmonary artery is compatible with pulmonary arterial hypertension. 2. Cardiomegaly with large pleural effusions, dependent atelectasis, and scattered mild groundglass opacities. These opacities likely represent pulmonary edema and/or atelectasis. Pneumonia is not excluded. CT head and neck: FINDINGS: Brain parenchyma, ventricles, dura, meninges, and extra-axial spaces: Ventricles and sulci are normal. No abnormal attenuation of brain parenchyma is present. No acute intracranial hemorrhage or abnormal extra-axial fluid collections are present. Vascular structures: No hyperdense arteries or veins. Calvarium, mastoid air cells, paranasal sinuses and orbits: The calvarium is normal. A 2.5 cm cystic lesion of the posterior right scalp likely represents a sebaceous cyst. Low density fluid in the left temporal scalp measures up to 1.1 cm in thickness. Overall, this fluid measures 6.7 x 1.1 x 9.7 cm. Large left mastoid effusion. Severe right maxillary and ethmoid sinus mucosal thickening. Orbital structures are unremarkable. IMPRESSION: 1. No acute intracranial abnormality. 2. Low-density fluid in the left temporal scalp could represent hematoma, seroma, or less likely abscess. 3. Polysinusitis and large left mastoid effusion. Echocardiogram: MEASUREMENTS (cm) DIASTOLIC (NORMALS) SYSTOLIC (NORMALS) IVSd 1.1 (0.6-1.2) LA Diam 3.4 (1.9-4.0) LVEF 37% LVIDd 4.7 (3.5-5.7) LVIDs 3.9 (2.0-3.5) %FS 18% LVPWd 1.2 (0.6-1.2) Ao Diam 3.1 (2.0-3.7) 2 DIMENSIONAL ASSESSMENT: RIGHT ATRIUM: LEFT ATRIUM: RIGHT VENTRICLE: LEFT VENTRICLE: TRICUSPID VALVE: MITRAL VALVE: PULMONIC VALVE: AORTIC VALVE: PERICARDIAL EFFUSION: AORTIC ROOT: LEFT VENTRICULAR WALL MOTION: DOPPLER/COLOR FLOW: COMMENTS: VERY LIMITED WINDOWS. LEFT VENTRICULAR EJECTION FRACTION APPEARS REDUCED BUT NOTABLE TO QUALIFY EJECTION FRACTION OR EVALUATE WALL MOTION DUE TO POOR WINDOWS. Follow-up CT chest: COMPARISON: 06/24/2021 TECHNIQUE: Axial 5 mm thick images of the chest were obtained without IV contrast. All CT scans are performed using dose optimization technique as appropriate and may include automated exposure control or mA/KV adjustment according to patient size. FINDINGS: Consolidative airspace disease bilaterally within the lower lobes and left upper lobe. No edema identified. No fractures are identified. Small effusions are present. Goiter. No abnormal mediastinal or hilar masses or lymphadenopathy seen. Cardiomegaly. No pericardial effusion. Hepatomegaly. IMPRESSION: Basilar consolidation, left upper lobe consolidation, and small effusions concerning for pneumonia/pneumonitis, possibly secondary to aspiration. The aeration was worsened since 06/24/21. Follow up CXR 07/01/2021: COMPARISON: Chest Single View dated 06/29/2021; Chest Single View dated 06/28/2021; Chest Single View dated 06/27/2021; Chest Single View dated 06/26/2021; Thorax Wo Con dated 06/30/2021 FINDINGS: There complete opacification of left hemithorax which is similar to 06/29/2021. There are diffuse airspace opacities throughout the right lung. The cardiac silhouette is largely obscured. No fractures seen. Very limited due to patient body habitus. IMPRESSION: Significantly limited due to patient body habitus. Near complete consolidation in the left lung that is similar and increasing right lung airspace disease which could reflect combination of atelectasis and pneumonia/pneumonitis. Physical exam: General: Patient alert, cooperative. Follows commands. Respiratory: Normal air movement, Diminished, basilar crackles patient currently stable on 4 L per nasal cannula Cardiovascular: Regular rate/rhythm, Normal S1 S2 Gastrointestinal: Morbidly obese. Overall stable. Musculoskeletal: Patient with good range of motion. Patient appears to be mainly bedbound. Impression: Dyspnea secondary to acute respiratory failure with hypercapnia related to acute on chronic systolic CHF with ejection fraction of 37% % complicated with obesity hypoventilation syndrome Atrial fibrillation on chronic anticoagulation therapy GERD Anemia of chronic disease with iron deficiency anemia Morbid obesity, BMI 82.3 Plan: Dyspnea secondary to acute respiratory failure with hypercapnia related to acute on chronic systolic CHF with ejection fraction of 37% % complicated with obesity hypoventilation syndrome: Patient remained stable at this time. Currently on 4 L per nasal cannula. Continue with Diamox to 50 mg daily. Continue to wean off oxygen. Physical therapy and occupational therapy to continue to monitor closely. Patient did receive some IV metoprolol after therapy today. Discussed with protective services social worker and patient about the possibility of sending patient to rehab facility. [facility] may be able to take care of the patient due to her body habitus. Awaiting approval for transfer to [facility] Atrial fibrillation on chronic anticoagulation therapy: Continue amiodarone 400 mg 1 pill twice daily. IV metoprolol as needed. Continue with Xarelto 20 mg daily. GERD: Continue with Pepcid. Anemia of chronic disease with iron deficiency anemia: Continue iron 325 mg 1 pill twice daily. Will provide stool softener as needed. Morbid obesity, BMI 82.3: Physical therapy and Occupational Therapy ordered to evaluate. Patient awaiting approval for inpatient rehab. Patient will need bariatric evaluation in the future. CODE STATUS: Full code DVT prophylaxis: Xarelto Advanced care minutes: [facility] Time Spent Managing Pts Care (In Minutes): 55
[2021-07-02] MEDS: ARFORMOTEROL TARTRATE 15 MCG/2 ML VIAL.NEB NEB SCH ×2 (08:29→19:40)
[2021-07-02] MEDS: FOLIC ACID 1 MG TABLET PO SCH (09:00)
[2021-07-02] MEDS: AMIODARONE HCL 200 MG TAB PO SCH ×2 (09:00→21:00)
[2021-07-02] MEDS: FAMOTIDINE 20 MG TAB PO SCH ×2 (09:00→21:00)
[2021-07-02] MEDS: THIAMINE HCL 100 MG TABLET PO SCH (09:00)
[2021-07-02] MEDS: acetaZOLAMIDE 250 MG TAB PO SCH (09:00)
[2021-07-02] MEDS ORDERED: THIAMINE HCL 100 MG TABLET ONE (09:40)
[2021-07-02] MEDS ORDERED: AMIODARONE HCL 200 MG TAB ONE ×2 (09:40→21:43)
[2021-07-02] MEDS ORDERED: acetaZOLAMIDE 250 MG TAB ONE (09:40)
[2021-07-02] MEDS ORDERED: FOLIC ACID 1 MG TABLET ONE (09:40)
[2021-07-02] MEDS ORDERED: FAMOTIDINE 20 MG TAB ONE ×2 (09:41→21:44)
[2021-07-02] MEDS ORDERED: POTASSIUM 25 MEQ EFFERV TAB PO ONE (11:39)
[2021-07-02] MEDS ORDERED: POTASSIUM 25 MEQ EFFERV TAB ONE (12:05)
[2021-07-02] MEDS ORDERED: METOPROLOL TARTRATE 5 MG/5 ML INJ IV PRN (13:00)
[2021-07-02] MEDS ORDERED: METOPROLOL TARTRATE 5 MG/5 ML INJ IV STA (13:49)
--- NOTE | 2021-07-02 16:30 | PN ---
Date of Progress Note: 07/01/2021 I was asked to give further recommendations regarding . atrial fibrillation. At one po int, she had came in with acute respiratory failure, got intubated, had a normal echocardiogram, was placed on IV amiodarone because she did not take anything p.o., and she converted to sinus rhythm. T michelle, she is extubated. I was asked what to do with the IV amiodarone. We will go and stop the IV, put on 400 mg p.o. amiodarone for now twice a day, and we will see how she does. I will continue to follow her temporarily. ROBERT/GIA Voice ID: [id number] Report ID: [id number]
--- NOTE | 2021-07-02 16:42 | PN ---
Date of Progress Note: 07/02/2021 was extubated yesterday, placed on p.o. amiodarone from IV amiodarone. Remained in si nus rhythm. I think we need to continue her on amiodarone 400 b.i.d. for 7 days and then switch her to 200 mg 1 p.o. daily. I will be available for questions if the need arises. She remains in sinus rhythm. Continue other medications at this point. ROBERT/GIA Voice ID: [id number] Report ID: [id number]
[2021-07-02] MEDS: RIVAROXABAN 20 MG TABLET PO SCH (18:30)
--- NOTE | 2021-07-02 18:35 | P.DS ---
Admission Date: 06/24/21 Discharge Date: 07/02/21 Primary Care Provider: Unknown Disposition: TRANSFER TO INPATIENT REHAB Reason for Admission: Respiratory failure, A. fib Consultations: Cardiology: Dr. Domínguez Pulmonology: Dr. Roberts Procedures: CT chest/thorax: FINDINGS: Brain parenchyma, ventricles, dura, meninges, and extra-axial spaces: Ventricles and sulci are normal. No abnormal attenuation of brain parenchyma is present. No acute intracranial hemorrhage or abnormal extra-axial fluid collections are present. Vascular structures: No hyperdense arteries or veins. Calvarium, mastoid air cells, paranasal sinuses and orbits: The calvarium is normal. A 2.5 cm cystic lesion of the posterior right scalp likely represents a sebaceous cyst. Low density fluid in the left temporal scalp measures up to 1.1 cm in thickness. Overall, this fluid measures 6.7 x 1.1 x 9.7 cm. Large left mastoid effusion. Severe right maxillary and ethmoid sinus mucosal thickening. Orbital structures are unremarkable. IMPRESSION: 1. No acute intracranial abnormality. 2. Low-density fluid in the left temporal scalp could represent hematoma, seroma, or less likely abscess. 3. Polysinusitis and large left mastoid effusion. EXAM DESCRIPTION: CT Cervical Spine COMPARISON: None. CLINICAL HISTORY: [facility] MAIN respiratory failure TECHNIQUE: Axial CT images were obtained through the entire cervical spine with out contrast. Sagittal and coronal reconstructions are provided. Automated exposure control was utilized on this examination as a dose lowering technique. FINDINGS: Vertebrae: Vertebral statures and alignment are normal. No acute fracture, dislocation or destructive osseous process is present. Spinal canal, foramina, and facet joints: No significant spinal canal or foraminal stenoses. No significant facet arthropathy. Paraspinous soft-tissues: Normal. Thyroid: A cystic lesion adjacent to the left thyroid gland measures 7.8 x 4.5 x 3.8 cm. Other Findings: None. IMPRESSION: Large fluid collection of the left neck adjacent to the left thyroid gland. This could represent a thyroid nodule or other fluid collection within the neck. This results in rightward displacement of the trachea. Consider further evaluation with CT of the neck with contrast or ultrasound. EXAM DESCRIPTION: CTA Chest, Pulmonary Embolus Protocol COMPARISON: None. CLINICAL HISTORY: [facility] MAIN respiratory failure TECHNIQUE: CT images through the chest with IV contrast using the pulmonary embolus protocol. Multiplanar reformats. MIPS reformats are provided. Automated exposure control was utilized on this examination as a dose lowering technique. FINDINGS: Pulmonary arteries and vascular: Diagnostic quality bolus. No filling defects. The right main pulmonary measures 4.6 cm. Heart and mediastinum: Cardiomegaly. No lymphadenopathy. Thyroid gland: Visualized portions are normal. Lungs: Mild groundglass opacities are noted in both lungs. Airways: No filling defects. No bronchiectasis. The endotracheal tube tip is 1.4 cm from the trae. The enteric tube tip projects into the gastric body out of the [id number]. Pleura: No pneumothorax. Large bilateral pleural effusions. Dependent atelectasis. Subphrenic structures: Within normal limits. Musculoskeletal and soft tissues: Within normal limits for age. IMPRESSION: 1. No definite large proximal pulmonary emboli. Evaluation for branch emboli is limited by bolus timing and body habitus. Dilated main pulmonary artery is compatible with pulmonary arterial hypertension. 2. Cardiomegaly with large pleural effusions, dependent atelectasis, and scattered mild groundglass opacities. These opacities likely represent pulmonary edema and/or atelectasis. Pneumonia is not excluded. CT head and neck: FINDINGS: Brain parenchyma, ventricles, dura, meninges, and extra-axial spaces: Ventricles and sulci are normal. No abnormal attenuation of brain parenchyma is present. No acute intracranial hemorrhage or abnormal extra-axial fluid collections are present. Vascular structures: No hyperdense arteries or veins. Calvarium, mastoid air cells, paranasal sinuses and orbits: The calvarium is normal. A 2.5 cm cystic lesion of the posterior right scalp likely represents a sebaceous cyst. Low density fluid in the left temporal scalp measures up to 1.1 cm in thickness. Overall, this fluid measures 6.7 x 1.1 x 9.7 cm. Large left mastoid effusion. Severe right maxillary and ethmoid sinus mucosal thickening. Orbital structures are unremarkable. IMPRESSION: 1. No acute intracranial abnormality. 2. Low-density fluid in the left temporal scalp could represent hematoma, seroma, or less likely abscess. 3. Polysinusitis and large left mastoid effusion. Echocardiogram: MEASUREMENTS (cm) DIASTOLIC (NORMALS) SYSTOLIC (NORMALS) IVSd 1.1 (0.6-1.2) LA Diam 3.4 (1.9-4.0) LVEF 37% LVIDd 4.7 (3.5-5.7) LVIDs 3.9 (2.0-3.5) %FS 18% LVPWd 1.2 (0.6-1.2) Ao Diam 3.1 (2.0-3.7) 2 DIMENSIONAL ASSESSMENT: RIGHT ATRIUM: LEFT ATRIUM: RIGHT VENTRICLE: LEFT VENTRICLE: TRICUSPID VALVE: MITRAL VALVE: PULMONIC VALVE: AORTIC VALVE: PERICARDIAL EFFUSION: AORTIC ROOT: LEFT VENTRICULAR WALL MOTION: DOPPLER/COLOR FLOW: COMMENTS: VERY LIMITED WINDOWS. LEFT VENTRICULAR EJECTION FRACTION APPEARS REDUCED BUT NOTABLE TO QUALIFY EJECTION FRACTION OR EVALUATE WALL MOTION DUE TO POOR WINDOWS. Follow-up CT chest: COMPARISON: 06/24/2021 TECHNIQUE: Axial 5 mm thick images of the chest were obtained without IV contrast. All CT scans are performed using dose optimization technique as appropriate and may include automated exposure control or mA/KV adjustment according to patient size. FINDINGS: Consolidative airspace disease bilaterally within the lower lobes and left upper lobe. No edema identified. No fractures are identified. Small effusions are present. Goiter. No abnormal mediastinal or hilar masses or lymphadenopathy seen. Cardiomegaly. No pericardial effusion. Hepatomegaly. IMPRESSION: Basilar consolidation, left upper lobe consolidation, and small effusions concerning for pneumonia/pneumonitis, possibly secondary to aspiration. The aeration was worsened since 06/24/21. Follow up CXR 07/01/2021: COMPARISON: Chest Single View dated 06/29/2021; Chest Single View dated 06/28/2021; Chest Single View dated 06/27/2021; Chest Single View dated 06/26/2021; Thorax Wo Con dated 06/30/2021 FINDINGS: There complete opacification of left hemithorax which is similar to 06/29/2021. There are diffuse airspace opacities throughout the right lung. The cardiac silhouette is largely obscured. No fractures seen. Very limited due to patient body habitus. IMPRESSION: Significantly limited due to patient body habitus. Near complete consolidation in the left lung that is similar and increasing right lung airspace disease which could reflect combination of atelectasis and pneumonia/pneumonitis. Physical exam: General: Patient alert, cooperative. Follows commands. Respiratory: Normal air movement, Diminished, basilar crackles patient currently stable on 4 L per nasal cannula Cardiovascular: Regular rate/rhythm, Normal S1 S2 Gastrointestinal: Morbidly obese. Overall stable. Musculoskeletal: Patient with good range of motion. Patient appears to be mainly bedbound. Impression: Dyspnea secondary to acute respiratory failure with hypercapnia related to acute on chronic systolic CHF with ejection fraction of 37% % complicated with obesity hypoventilation syndrome Atrial fibrillation on chronic anticoagulation therapy GERD Anemia of chronic disease with iron deficiency anemia Morbid obesity, BMI 82.3 Brief History of Present Illness: 46-year-old morbidly obese female with unknown medical history was transported to the emergency room by EMS for hypoxia. EMS reported to ER staff that she was found at home on a nasal cannula saturating in the 80s. Upon arrival to the emergency department patient was extremely lethargic but able to answer one-word questions, was able to tell staff that she is allergic to penicillin, this was the most that she was able to communicate with ER staff. Further evaluation with ABG revealed pH of 7.22 PCO2 of 107 PO2 65 HCO3 42.7, patient was placed on BiPAP. Additional labs revealed white blood cell count 8.6 procalcitonin negative hemoglobin 11.3 sodium 139 potassium 4.4 chloride 98 CO2 41 creatinine 0.69 glucose 100 9T bili 1.6T bili 0.8 BNP 2688 troponin 0 0.11, patient in atrial fibrillation unknown if she has a history of this. Patient was disheveled, dirty smells of urine reportedly lives alone urine with 20-50 bacteria Covid test negative. Attempted to reach out to patient's family via demographics but all phone numbers were disconnected. Repeat ABG demonstrated patient was still significantly hypercapnic and acidotic and becoming more altered, ED provider called anesthesiology as it was anticipated patient will be a difficult airway given the body habitus. Patient was intubated by anesthesiology in the emergency department. Transfer was attempted to all tertiary centers in the [place] area who all declined for capacity, ED provider wishes to admit for further evaluation and management of acute hypercapnic hypoxic respiratory failure/A. fib/NSTEMI. Hospital Course: Patient was admitted for dyspnea secondary to acute respiratory failure with hypercapnia related to acute on chronic systolic congestive heart failure with ejection fraction around 37%. Patient was treated with Diamox, ventilation, oxygen, her amiodarone was continued for her atrial fibrillation as well as Xarelto. Patient improved throughout the duration of her hospitalization. Patient is morbidly obese and primarily bedbound, patient was evaluated by physical therapy and it was determined she would benefit from inpatient rehab. Arrangements were made for patient be transferred to inpatient rehab today. Vital Signs/Physical Exam: Temp Pulse Resp BP Pulse Ox 97.1 F 98 H 18 112/68 96 07/02/21 13:00 07/02/21 13:00 07/02/21 13:00 07/02/21 13:00 07/02/21 13:00 General: Alert, Oriented x3, Obese HEENT: Mucous membr. moist/pink Neck: Supple Respiratory: Diminished Cardiovascular: No edema Capillary refill: <2 Seconds Gastrointestinal: Normal bowel sounds, Soft and benign Musculoskeletal: No contractures, No erythema, No tenderness Integumentary: No tenderness/swelling, No erythema, No warmth Neurological: Normal speech, Normal tone, Sensation intact Laboratory Data at Discharge: WBC 5.30 K/uL (4.3-10.9) 07/02/21 02:05 Hgb 9.8 g/dL (12.0-15.0) L 07/02/21 02:05 Hct 34.2 % (36.0-45.0) L 07/02/21 02:05 Plt Count 199 K/uL (152-406) 07/02/21 02:05 PT 24.6 SECONDS (9.5-12.5) H 06/24/21 01:00 INR 2.12 06/24/21 01:00 Sodium 141 mmol/L (136-145) 07/02/21 02:05 Potassium 3.2 mmol/L (3.5-5.1) L 07/02/21 02:05 BUN 4 mg/dL (7-18) L 07/02/21 02:05 Creatinine 0.46 mg/dL (0.55-1.3) L 07/02/21 02:05 Glucose 106 mg/dL (74-106) 07/02/21 02:05 Phosphorus 2.0 mg/dL (2.5-4.9) L 06/30/21 03:41 Magnesium 1.9 mg/dL (1.8-2.4) 07/02/21 02:05 Total Bilirubin 1.2 mg/dL (0.2-1.0) H 07/02/21 02:05 AST 19 U/L (15-37) 07/02/21 02:05 ALT 18 U/L (12-78) 07/02/21 02:05 Alkaline Phosphatase 42 U/L (45-117) L 07/02/21 02:05 Troponin I 0.74 ng/mL (0.0-0.045) H* 06/24/21 16:11 Triglycerides 107 mg/dL (<150) 06/24/21 16:11 Cholesterol 78 mg/dL (<200) 06/24/21 16:11 HDL Cholesterol 20 mg/dL (40-60) L 06/24/21 16:11 Cholesterol/HDL Ratio 3.90 06/24/21 16:11 Home Medications: Amiodarone HCl [Cordarone*] 1 tab PO DAILY 06/24/21 Furosemide 1 tab PO BID 6AM 6PM 06/24/21 Metoprolol Tartrate 3 tab PO DAILY 06/24/21 Warfarin Sodium 1 tab PO DAILY 06/24/21 Physician Discharge Instructions: Continue with plan of care at rehab facility Diet: AHA Followup: LEANDRO REEVES [Primary Care Provider] - Time spent managing pt's care (in minutes): 30
[2021-07-02] MEDS ORDERED: RIVAROXABAN 20 MG TABLET PO ONE (18:56)
[2021-07-02] MEDS ORDERED: ARFORMOTEROL TARTRATE 15 MCG/2 ML VIAL.NEB ONE (20:33)
[2021-07-02] MEDS: FERROUS SULFATE 325 MG TAB PO SCH (21:00)
[2021-07-02] MEDS ORDERED: FERROUS SULFATE 325 MG TAB PO ONE (22:46)
[2021-07-02] MEDS ORDERED: FENTANYL CITR 100 MCG/2 ML ONE (23:05)
[2021-07-02] MEDS ORDERED: FENTANYL CITR 100 MCG/2 ML IV ONE (23:07)
[2021-07-03 04:04] LABS: ALT/SGPT 20 U/L (12-78); AST/SGOT 19 U/L (15-37); Albumin 2.8 g/dL (3.4-5.0); Alkaline Phosphatase 44 U/L (45-117); BUN Blood Urea Nitrogen 6 mg/dL (7-18); Bicarbonate 39 mmol/L (21-32); Bilirubin Total 1.2 mg/dL (0.2-1.0); Glucose Level 119 mg/dL (74-106); Potassium 3.4 mmol/L (3.5-5.1); Protein, Total 7.8 g/dL (6.4-8.2); Sodium Level 142 mmol/L (136-145)
--- NOTE | 2021-07-03 06:29 | P.DS ---
Admission Date: 06/24/21 Discharge Date: 07/03/21 Primary Care Provider: Unknown Disposition: TRANSFER TO INPATIENT REHAB Discharge Condition: GOOD Reason for Admission: Respiratory failure, A. fib Consultations: Pulmonary-Dr. Roberts Procedures: COVID: Negative CT chest/thorax: FINDINGS: Brain parenchyma, ventricles, dura, meninges, and extra-axial spaces: Ventricles and sulci are normal. No abnormal attenuation of brain parenchyma is present. No acute intracranial hemorrhage or abnormal extra-axial fluid collections are present. Vascular structures: No hyperdense arteries or veins. Calvarium, mastoid air cells, paranasal sinuses and orbits: The calvarium is normal. A 2.5 cm cystic lesion of the posterior right scalp likely represents a sebaceous cyst. Low density fluid in the left temporal scalp measures up to 1.1 cm in thickness. Overall, this fluid measures 6.7 x 1.1 x 9.7 cm. Large left mastoid effusion. Severe right maxillary and ethmoid sinus mucosal thickening. Orbital structures are unremarkable. IMPRESSION: 1. No acute intracranial abnormality. 2. Low-density fluid in the left temporal scalp could represent hematoma, seroma, or less likely abscess. 3. Polysinusitis and large left mastoid effusion. EXAM DESCRIPTION: CT Cervical Spine COMPARISON: None. CLINICAL HISTORY: [facility] respiratory failure TECHNIQUE: Axial CT images were obtained through the entire cervical spine without contrast. Sagittal and coronal reconstructions are provided. Automated exposure control was utilized on this examination as a dose lowering technique. FINDINGS: Vertebrae: Vertebral statures and alignment are normal. No acute fracture, dislocation or destructive osseous process is present. Spinal canal, foramina, and facet joints: No significant spinal canal or foraminal stenoses. No significant facet arthropathy. Paraspinous soft-tissues: Normal. Thyroid: A cystic lesion adjacent to the left thyroid gland measures 7.8 x 4.5 x 3.8 cm. Other Findings: None. IMPRESSION: Large fluid collection of the left neck adjacent to the left thyroid gland. This could represent a thyroid nodule or other fluid collection within the neck. This results in rightward displacement of the trachea. Consider further evaluation with CT of the neck with contrast or ultrasound. EXAM DESCRIPTION: CTA Chest, Pulmonary Embolus Protocol COMPARISON: None. CLINICAL HISTORY: [facility] respiratory failure TECHNIQUE: CT images through the chest with IV contrast using the pulmonary embolus protocol. Multiplanar reformats. MIPS reformats are provided. Automated exposure control was utilized on this examination as a dose lowering technique. FINDINGS: Pulmonary arteries and vascular: Diagnostic quality bolus. No filling defects. The right main pulmonary measures 4.6 cm. Heart and mediastinum: Cardiomegaly. No lymphadenopathy. Thyroid gland: Visualized portions are normal. Lungs: Mild groundglass opacities are noted in both lungs. Airways: No filling defects. No bronchiectasis. The endotracheal tube tip is 1.4 cm from the trae. The enteric tube tip projects into the gastric body out of the [id number]. Pleura: No pneumothorax. Large bilateral pleural effusions. Dependent atelectasis. Subphrenic structures: Within normal limits. Musculoskeletal and soft tissues: Within normal limits for age. IMPRESSION: 1. No definite large proximal pulmonary emboli. Evaluation for branch emboli is limited by bolus timing and body habitus. Dilated main pulmonary artery is compatible with pulmonary arterial hypertension. 2. Cardiomegaly with large pleural effusions, dependent atelectasis, and scattered mild groundglass opacities. These opacities likely represent pulmonary edema and/or atelectasis. Pneumonia is not excluded. CT head and neck: FINDINGS: Brain parenchyma, ventricles, dura, meninges, and extra-axial spaces: Ventricles and sulci are normal. No abnormal attenuation of brain parenchyma is present. No acute intracranial hemorrhage or abnormal extra-axial fluid collections are present. Vascular structures: No hyperdense arteries or veins. Calvarium, mastoid air cells, paranasal sinuses and orbits: The calvarium is normal. A 2.5 cm cystic lesion of the posterior right scalp likely represents a sebaceous cyst. Low density fluid in the left temporal scalp measures up to 1.1 cm in thickness. Overall, this fluid measures 6.7 x 1.1 x 9.7 cm. Large left mastoid effusion. Severe right maxillary and ethmoid sinus mucosal thickening. Orbital structures are unremarkable. IMPRESSION: 1. No acute intracranial abnormality. 2. Low-density fluid in the left temporal scalp could represent hematoma, seroma, or less likely abscess. 3. Polysinusitis and large left mastoid effusion. Echocardiogram: MEASUREMENTS (cm) DIASTOLIC (NORMALS) SYSTOLIC (NORMALS) IVSd 1.1 (0.6-1.2) LA Diam 3.4 (1.9-4.0) LVEF 37% LVIDd 4.7 (3.5-5.7) LVIDs 3.9 (2.0-3.5) %FS 18% LVPWd 1.2 (0.6-1.2) Ao Diam 3.1 (2.0-3.7) 2 DIMENSIONAL ASSESSMENT: RIGHT ATRIUM: LEFT ATRIUM: RIGHT VENTRICLE: LEFT VENTRICLE: TRICUSPID VALVE: MITRAL VALVE: PULMONIC VALVE: AORTIC VALVE: PERICARDIAL EFFUSION: AORTIC ROOT: LEFT VENTRICULAR WALL MOTION: DOPPLER/COLOR FLOW: COMMENTS: VERY LIMITED WINDOWS. LEFT VENTRICULAR EJECTION FRACTION APPEARS REDUCED BUT NOTABLE TO QUALIFY EJECTION FRACTION OR EVALUATE WALL MOTION DUE TO POOR WINDOWS. Follow-up CT chest: COMPARISON: 06/24/2021 TECHNIQUE: Axial 5 mm thick images of the chest were obtained without IV contrast. All CT scans are performed using dose optimization technique as appropriate and may include automated exposure control or mA/KV adjustment according to patient size. FINDINGS: Consolidative airspace disease bilaterally within the lower lobes and left upper lobe. No edema identified. No fractures are identified. Small effusions are present. Goiter. No abnormal mediastinal or hilar masses or lymphadenopathy seen. Cardiomegaly. No pericardial effusion. Hepatomegaly. IMPRESSION: Basilar consolidation, left upper lobe consolidation, and small effusions concerning for pneumonia/pneumonitis, possibly secondary to aspiration. The aeration was worsened since 06/24/21. Follow up CXR 07/01/2021: COMPARISON: Chest Single View dated 06/29/2021; Chest Single View dated 06/28/2021; Chest Single View dated 06/27/2021; Chest Single View dated 06/26/2021; Thorax Wo Con dated 06/30/2021 FINDINGS: There complete opacification of left hemithorax which is similar to 06/29/2021. There are diffuse airspace opacities throughout the right lung. The cardiac silhouette is largely obscured. No fractures seen. Very limited due to patient body habitus. IMPRESSION: Significantly limited due to patient body habitus. Near complete consolidation in the left lung that is similar and increasing right lung airspace disease which could reflect combination of atelectasis and pneumonia/pneumonitis. Medical problem list: Dyspnea secondary to acute respiratory failure with hypercapnia related to acute on chronic systolic CHF with ejection fraction of 37% % complicated with obesity hypoventilation syndrome Atrial fibrillation on chronic anticoagulation therapy GERD Anemia of chronic disease with iron deficiency anemia Morbid obesity, BMI 82.3 Brief History of Present Illness: 46-year-old morbidly obese female with unknown medical history was transported to the emergency room by EMS for hypoxia. EMS reported to ER staff that she was found at home on a nasal cannula saturating in the 80s. Upon arrival to the emergency department patient was extremely lethargic but able to answer one-word questions, was able to tell staff that she is allergic to penicillin, this was the most that she was able to communicate with ER staff. Further evaluation with ABG revealed pH of 7.22 PCO2 of 107 PO2 65 HCO3 42.7, patient was placed on BiPAP. Additional labs revealed white blood cell count 8.6 procalcitonin negative hemoglobin 11.3 sodium 139 potassium 4.4 chloride 98 CO2 41 creatinine 0.69 glucose 100 9T bili 1.6T bili 0.8 BNP 2688 troponin 0 0.11, patient in atrial fibrillation unknown if she has a history of this. Patient was disheveled, dirty smells of urine reportedly lives alone urine with 20-50 bacteria Covid test negative. Attempted to reach out to patient's family via demographics but all phone numbers were disconnected. Repeat ABG de monstrated patient was still significantly hypercapnic and acidotic and becoming more altered, ED provider called anesthesiology as it was anticipated patient will be a difficult airway given the body habitus. Patient was intubated by anesthesiology in the emergency department. Transfer was attempted to all tertiary centers in the [place] area who all declined for capacity. Patient was admitted for further treatment. Hospital Course: Patient was admitted for dyspnea secondary to acute respiratory failure with hypercapnia related to acute on chronic systolic congestive heart failure with ejection fraction around 37%. Patient required intubation. She was eventually weaned off the ventilator. Patient has done well with medical treatment. Patient seen and evaluated by pulmonology. Patient has responded to therapy. Patient seen and evaluated by inpatient rehab. Patient accepted to inpatient rehab. The patient had been sent to inpatient rehab but had to return due to lack of appropriate bariatric bed. Patient stable at this time. Appropriate bariatric bed now at inpatient rehab. Patient will be discharged to inpatient rehab to continue her therapy. At discharge the patient will continue with current medications including Diamox, oxygen to maintain sats above 93%. This can be weaned off, amiodarone, Xarelto. Further adjustments in medication can be done by inpatient rehab Vital Signs/Physical Exam: Temp Pulse Resp BP Pulse Ox 97.8 F 97 H 24 H 103/80 94 07/02/21 16:00 07/02/21 20:00 07/02/21 23:07 07/02/21 20:00 07/02/21 23:07 General: Alert, In no apparent distress, Cooperative HEENT: Atraumatic Neck: Supple Respiratory: Other (Decrease but stable on 4 L) Cardiovascular: Normal pulses Gastrointestinal: Normal bowel sounds, Other (Morbid obesity BMI 82) Integumentary: Other (Patient morbidly obese) Neurological: Normal speech, Normal strength at 5/5 x4 extr, Normal tone, Normal affect Laboratory Data at Discharge: WBC 5.30 K/uL (4.3-10.9) 07/02/21 02:05 Hgb 9.8 g/dL (12.0-15.0) L 07/02/21 02:05 Hct 34.2 % (36.0-45.0) L 07/02/21 02:05 Plt Count 199 K/uL (152-406) 07/02/21 02:05 PT 24.6 SECONDS (9.5-12.5) H 06/24/21 01:00 INR 2.12 06/24/21 01:00 Sodium 142 mmol/L (136-145) 07/03/21 03:04 Potassium 3.4 mmol/L (3.5-5.1) L 07/03/21 03:04 BUN 6 mg/dL (7-18) L 07/03/21 03:04 Creatinine 0.48 mg/dL (0.55-1.3) L 07/03/21 03:04 Glucose 119 mg/dL (74-106) H 07/03/21 03:04 Phosphorus 2.0 mg/dL (2.5-4.9) L 06/30/21 03:41 Magnesium 2.0 mg/dL (1.8-2.4) 07/03/21 03:04 Total Bilirubin 1.2 mg/dL (0.2-1.0) H 07/03/21 03:04 AST 19 U/L (15-37) 07/03/21 03:04 ALT 20 U/L (12-78) 07/03/21 03:04 Alkaline Phosphatase 44 U/L (45-117) L 07/03/21 03:04 Troponin I 0.74 ng/mL (0.0-0.045) H* 06/24/21 16:11 Triglycerides 107 mg/dL (<150) 06/24/21 16:11 Cholesterol 78 mg/dL (<200) 06/24/21 16:11 HDL Cholesterol 20 mg/dL (40-60) L 06/24/21 16:11 Cholesterol/HDL Ratio 3.90 06/24/21 16:11 Home Medications: Amiodarone HCl [Cordarone*] 1 tab PO DAILY 06/24/21 Furosemide 1 tab PO BID 6AM 6PM 06/24/21 Metoprolol Tartrate 3 tab PO DAILY 06/24/21 Warfarin Sodium 1 tab PO DAILY 06/24/21 Physician Discharge Instructions: Patient to be transferred to inpatient rehab to continue therapy. Diet: AHA Activity: Fall precautions Followup: OOTLEANDRO [Primary Care Provider] - Time spent managing pt's care (in minutes): 55
[2021-07-03 08:08] VITALS: O2SAT 93
[2021-07-03] MEDS: acetaZOLAMIDE 250 MG TAB PO SCH (09:00)
[2021-07-03] MEDS: FOLIC ACID 1 MG TABLET PO SCH (09:00)
[2021-07-03] MEDS: FAMOTIDINE 20 MG TAB PO SCH (09:00)
[2021-07-03] MEDS: THIAMINE HCL 100 MG TABLET PO SCH (09:00)
[2021-07-03] MEDS ORDERED: POTASSIUM CL SA 10 MEQ TAB PO ONE ×2 (09:00→09:19)
[2021-07-03] MEDS: FERROUS SULFATE 325 MG TAB PO SCH (09:00)
[2021-07-03] MEDS: AMIODARONE HCL 200 MG TAB PO SCH (09:00)
[2021-07-03] MEDS ORDERED: AMIODARONE HCL 200 MG TAB ONE (09:18)
[2021-07-03] MEDS ORDERED: THIAMINE HCL 100 MG TABLET ONE (09:18)
[2021-07-03] MEDS ORDERED: acetaZOLAMIDE 250 MG TAB ONE (09:18)
[2021-07-03] MEDS ORDERED: FOLIC ACID 1 MG TABLET ONE (09:19)
[2021-07-03] MEDS ORDERED: FAMOTIDINE 20 MG TAB ONE (09:19)
[2021-07-03 12:20] VITALS: BP 101/55; TEMP 98.1
--- NOTE | 2021-07-03 16:29 | EKG ---
Test Date: 2021-07-02 Test Time: 11:55:37 Rewards Consultant: MEASUREMENT RESULTS: Intervals: Rate: 124 MN: QRSD: 92 QT: 202 QTc: 290 [place]: P: -75 MN: QRS: 59 T: -68 INTERPRETIVE STATEMENTS: Atrial flutter with 2:1 AV conduction Low voltage QRS Nonspecific ST and T wave abnormality Abnormal ECG Compared to ECG 03/19/2003 09:21:00 Low QRS voltage now present ST (T wave) deviation now present Sinus rhythm no longer present Myocardial infarct finding no longer present Electronically Signed On 07-03-21 16:24:23 CDT by Sav Domínguez
== END 2021-07-03 12:49 | DRG 207 ==
LOC: ER 21:47 → ERHOLD 06-24 03:11
PROVIDERS: ADMIT Hospitalist; ATTEND Family Medicine
PROC: 5A09357 Assistance with Respiratory Ventilation, Less than 24 Consecutive Hours, Continuous Positive Airway Pressure (ICD-10-PCS; 2021-06-23)
PROC: 5A1955Z Respiratory Ventilation, Greater than 96 Consecutive Hours (ICD-10-PCS; principal; 2021-06-24)
PROC: 0BH17EZ Insertion of Endotracheal Airway into Trachea, Via Natural or Artificial Opening (ICD-10-PCS; 2021-06-24)
PROC: 02HV33Z Insertion of Infusion Device into Superior Vena Cava, Percutaneous Approach (ICD-10-PCS; 2021-06-26)
DX: J96.21 Acute and chronic respiratory failure with hypoxia (principal); I50.23 Acute on chronic systolic (congestive) heart failure; Z68.45 Body mass index [BMI] 70 or greater, adult; E66.2 Morbid (severe) obesity with alveolar hypoventilation; J96.22 Acute and chronic respiratory failure with hypercapnia; I48.91 Unspecified atrial fibrillation; D63.8 Anemia in other chronic diseases classified elsewhere; Z20.822 Contact with and (suspected) exposure to COVID-19; Z79.01 Long term (current) use of anticoagulants
CPT/HCPCS: 31500; 36415; 36569; 51702; 70450; 71045; 71250; 71275; 72125; 80048; 80053; 80061; 80076; 81003; 81015; 81025; 82607; 82728; 82805; 83540; 83605; 83735; 83880; 84100; 84145; 84439; 84443; 84466; 84484; 85025; 85610; 86140; 87040; 87077; 87086; 87088; 87186; 87205; 87804; 93005; 93306; 94002; 94003; 94010; 94640; 94660; 94760; 96372; 97161; 97530; 99291; 99292; J0282; J0330; J0692; J1160; J1630; J1650; J1720; J1940; J2250; J2405; J2704; J3010; J3480; J7030; J7040; J7042; J7060; J7605; P9047; Q9967; U0003

== ENCOUNTER 2021-07-18 20:13 | Inpatient (IN) | payer BC ==
--- OUTSIDE RECORDS SUMMARY | 2021-07-18 20:20 | XMS REPORT | Continuity of Care Document ---
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 Emergency [facility] [id number] [place] 17:24:22 17:44:35 [facility] 2020-12-17 2020-12-17 Letter JULIO Bonner [id number] 00:00:00 00:00:00 (Out) 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 [facility] [id number] MATERNAL [id number] & CHILD 111 [facility] 2020-11-06 2020-11-06 Telephone SVITLANA Bonner [id number] 00:00:00 00:00:00 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 [facility] [id number] MATERNAL [id number] & CHILD 111 [facility] Results Test Description Test Time Test Comments Results Result Comments Source - XR CHEST 1 V 2021-07-17 [facility]:09[facility] 1975 Sex: F Name: GRAZYNA GOMEZ [place] : 1975 Age/S: 46 / F [address] Unit #: [id number] Loc: [place] [address] Phys: Darryl Haney MD Acct: [id number] Dis Date: Status: ADM IN PHONE #: [phone] Exam Date: 07/17/2021 1640 FAX #: Reason: SOB EXAMS: CPT: [id number] XR CHEST 1 V 63968 Fluoro Time: DAP (Gy m2): Air Kerma (mGy): STUDY: Chest radiograph HISTORY: Shortness of breath. COMPARISON: 07/12/2021 TECHNIQUE: Frontal view of the chest. SITE: [facility] FINDINGS: The cardiac silhouette is enlarged, stable in size. Coronary vascular congestion persists. Left perihilar and left basilar opacities as well as a moderate left pleural effusion are without significant change. There is no discernible pneumothorax. IMPRESSION: No significant interval change. at 1709 Reported and signed by: Neal Gill M.D. CC: Darryl Haney MD; Astrid Olmos MD PAGE 1 Signed Report Name: GRAZYNA GOMEZ [place] : 1975 Age/S: 46 / F [address] Unit #: [id number] Loc: [place] [address] Phys: Darryl Haney MD Acct: [id number] Dis Date: Status: ADM IN PHONE #: [phone] Exam Date: 07/17/2021 1640 FAX #: Reason: SOB EXAMS: CPT: [id number] XR CHEST 1 V 67825 Fluoro Time: DAP (Gy m2): Air Kerma (mGy): <Continued> Technologist: Antonella Walker, RT(R) Trnscb Date/Time: 07/17/2021 (170) [id number] Orig Print D/T: S: 07/17/2021 (9792) PAGE 2 Signed Report PROTHROMBIN TIME 2021-07-17 06:48:00 Test Item Value Reference Range Interpretation Comme nts PT PATIENT (test code = PTP) 18.5 SECONDS 9.3-12.9 H INTERNATIONAL NORMAL RATIO 1.64 INR Unit 0.8-1.2 H TARGET INR BY (test code = INR) INDICATION Indication INR1. Prophylax is of venous thrombosis 2.0 - 3.0 (orthoped ic surgery), Prophylaxis of venous thrombosis (oth er than high-risk yinka amelia), Treatment of Deep Vein Thrombosis/Pulm onary Embolism, Prevention of systemic embolism - Tiss ue heart valves, Acute Myocard ial Infarction (to prevent s ystemic embolism), Valv ular heart disease, Acut e Myocardial Infarction (to prevent systemic emboli sm), Valvular heart disease, Atrial Fibrillation, B ileaflet mechanical va lve in aortic position.2. Mec hanical prosthetic valv es (high risk), 2.5 - 3.5 P resence of Lupus Anticoagulant o r Antiphospholipi d Antibodies, Prevention of systemic embolism - Acut e Myocardial Infarction (t o prevent recurrent infar ct). PROTHROMBIN [id number] 11:32:00 Test Item Value Reference Range Interpretation Comments PT PATIENT (test 17.2 SECONDS 9.3-12.9 H code = PTP) INTERNATIONAL NORMAL 1.52 INR Unit 0.8-1.2 H TARGET RATIO (test code = INR BY IN DICATION INR) Indication INR1. Prophyl axis of venous thrombos is 2.0 - 3. 0 (orthopedic yinka amelia), Prophylaxis of venous thrombos is (other than hig h-risk surgery), Cherelle tment of Deep Vein Thrombosis/Pulm onary Embolism, Preve ntion of systemic emb olism - Tissue heart va lves, Acute Myocardia l Infarction (to prevent systemic embo lism), Valvular heart disease, Acut e Myocardial Infa rction (to prevent s ystemic embolism), Valv ular heart disease, Atrial Fibrilla tion, Bileaflet mecha nical valve in aortic position.2. Mec hanical prosthetic valv es (high risk), 2.5 - 3.5 Presence of Lupus Anticoagu lant or Antiphospholi pid Antibodies, Pre vention of systemic e mbolism - Acute Myocard ial Infarction (t o prevent recurre nt infarct). PROTHROMBIN [id number] 18:18:00 Test Item Value Reference Range Interpretation Comments PT PATIENT (test 17.6 SECONDS 9.3-12.9 H code = PTP) INTERNATIONAL NORMAL 1.56 INR Unit 0.8-1.2 H TARGET RATIO (test code = INR BY IN DICATION INR) Indication INR1. Prophyl axis of venous thrombos is 2.0 - 3. 0 (orthopedic yinka amelia), Prophylaxis of venous thrombos is (other than hig h-risk surgery), Cherelle tment of Deep Vein Thrombosis/Pulm onary Embolism, Preve ntion of systemic emb olism - Tissue heart va lves, Acute Myocardia l Infarction (to prevent systemic embo lism), Valvular heart disease, Acut e Myocardial Infa rction (to prevent s ystemic embolism), Valv ular heart disease, Atrial Fibrilla tion, Bileaflet mecha nical valve in aortic position.2. Mec hanical prosthetic valv es (high risk), 2.5 - 3.5 Presence of Lupus Anticoagu lant or Antiphospholi pid Antibodies, Pre vention of systemic e mbolism - Acute Myocard ial Infarction (t o prevent recurre nt infarct). CBC W/AUTO [id number] 14:36:00 Test Item Value Reference Range Interpretation Comments WHITE BLOOD CELL (test code = 5.0 K/mm3 3.5-11.0 N WBC) RED BLOOD CELL (test code = 4.45 M/mm3 4.70-6.10 L RBC) HEMOGLOBIN (test code = HGB) 10.2 G/DL 10.4-14.9 L HEMATOCRIT (test code = HCT) 39.8 % 31.5-44.1 N MEAN CELL VOLUME (test code = 89.4 Fl 84.5-98.6 N MCV) MEAN CELL HGB (test code = MCH) 22.9 pg 27.0-34.2 L MEAN CELL HGB CONCETRATION 25.6 G/DL 31.5-34.0 L (test code = MCHC) RED CELL DISTRIBUTION WIDTH 25.1 SD 11.5-14.5 H (test code = RDW) PLATELET COUNT (test code = 254 K/mm3 150-450 N PLT) MEAN PLATELET VOLUME (test code 11.10 fL 7.0-10.5 H = MPV) NEUTROPHIL % (test code = NT%) 71.2 % 40-76 N IMMATURE GRANULOCYTE % (test 0.2 % 0.0-5.0 N code = IG%) LYMPHOCYTE % (test code = LY%) 15.1 % 20.5-51.1 L MONOCYTE % (test code = MO%) 10.5 % 1.7-9.3 H EOSINOPHIL % (test code = EO%) 2.6 % 0.0-6.0 N BASOPHIL % (test code = BA%) 0.4 % 0.0-2.0 N NUCLEATED RBC % (test code = 0.0 /100WBC% 0.0-1.0 N NRBC%) NEUTROPHIL # (test code = NT#) 3.6 K/mm3 1.8-7.6 N IMMATURE GRANULOCYTE # (test 0.01 x10 3/uL 0.00-0.03 N code = IG#) LYMPHOCYTE # (test code = LY#) 0.8 K/mm3 0.6-3.2 N MONOCYTE # (test code = MO#) 0.5 K/mm3 0.3-1.1 N EOSINOPHIL # (test code = EO#) 0.1 K/mm3 0.0-0.4 N BASOPHIL # (test code = BA#) 0.0 K/mm3 0.0-0.1 N NUCLEATED RBC # (test code = 0.0 K/mm3 0.0-0.1 N NRBC#) MANUAL DIFF REQUIRED (test code NO DIFF/SCN CRITERIA = MDIFF) RBC [id number] 14:36:00 Test Item Value Reference Range Interpretation Comments HYPOCHROMIA (test code = HYPO) 2+ ON SCAN NONE A POIKILOCYTOSIS (test code = POIK) 2+ ON SCAN NONE A ANISOCYTOSIS (test code = ANISO) 3+ NONE A MICROCYTOSIS (test code = MICR) 3+ ON SCAN NONE A ROULEAUX (test code = ROU) 1+ ON SCAN NONE A CBC W/AUTO [id number] 14:35:00 Test Item Value Reference Range Interpretation Comments WHITE BLOOD CELL (test code = 5.0 K/mm3 3.5-11.0 N WBC) RED BLOOD CELL (test code = 4.45 M/mm3 4.70-6.10 L RBC) HEMOGLOBIN (test code = HGB) 10.2 G/DL 10.4-14.9 L HEMATOCRIT (test code = HCT) 39.8 % 31.5-44.1 N MEAN CELL VOLUME (test code = 89.4 Fl 84.5-98.6 N MCV) MEAN CELL HGB (test code = MCH) 22.9 pg 27.0-34.2 L MEAN CELL HGB CONCETRATION 25.6 G/DL 31.5-34.0 L (test code = MCHC) RED CELL DISTRIBUTION WIDTH 25.1 SD 11.5-14.5 H (test code = RDW) PLATELET COUNT (test code = 254 K/mm3 150-450 N PLT) MEAN PLATELET VOLUME (test code 11.10 fL 7.0-10.5 H = MPV) NEUTROPHIL % (test code = NT%) 71.2 % 40-76 N IMMATURE GRANULOCYTE % (test 0.2 % 0.0-5.0 N code = IG%) LYMPHOCYTE % (test code = LY%) 15.1 % 20.5-51.1 L MONOCYTE % (test code = MO%) 10.5 % 1.7-9.3 H EOSINOPHIL % (test code = EO%) 2.6 % 0.0-6.0 N BASOPHIL % (test code = BA%) 0.4 % 0.0-2.0 N NUCLEATED RBC % (test code = 0.0 /100WBC% 0.0-1.0 N NRBC%) NEUTROPHIL # (test code = NT#) 3.6 K/mm3 1.8-7.6 N IMMATURE GRANULOCYTE # (test 0.01 x10 3/uL 0.00-0.03 N code = IG#) LYMPHOCYTE # (test code = LY#) 0.8 K/mm3 0.6-3.2 N MONOCYTE # (test code = MO#) 0.5 K/mm3 0.3-1.1 N EOSINOPHIL # (test code = EO#) 0.1 K/mm3 0.0-0.4 N BASOPHIL # (test code = BA#) 0.0 K/mm3 0.0-0.1 N NUCLEATED RBC # (test code = 0.0 K/mm3 0.0-0.1 N NRBC#) MANUAL DIFF REQUIRED (test code NO DIFF/SCN CRITERIA = MDIFF) CBC W/AUTO [id number] 14:35:00 Test Item Value Reference Range Interpretation Comments WHITE BLOOD CELL (test code = 5.0 K/mm3 3.5-11.0 N WBC) RED BLOOD CELL (test code = 4.45 M/mm3 4.70-6.10 L RBC) HEMOGLOBIN (test code = HGB) 10.2 G/DL 10.4-14.9 L HEMATOCRIT (test code = HCT) 39.8 % 31.5-44.1 N MEAN CELL VOLUME (test code = 89.4 Fl 84.5-98.6 N MCV) MEAN CELL HGB (test code = MCH) 22.9 pg 27.0-34.2 L MEAN CELL HGB CONCETRATION 25.6 G/DL 31.5-34.0 L (test code = MCHC) RED CELL DISTRIBUTION WIDTH 25.1 SD 11.5-14.5 H (test code = RDW) PLATELET COUNT (test code = 254 K/mm3 150-450 N PLT) MEAN PLATELET VOLUME (test code 11.10 fL 7.0-10.5 H = MPV) NEUTROPHIL % (test code = NT%) 71.2 % 40-76 N IMMATURE GRANULOCYTE % (test 0.2 % 0.0-5.0 N code = IG%) LYMPHOCYTE % (test code = LY%) 15.1 % 20.5-51.1 L MONOCYTE % (test code = MO%) 10.5 % 1.7-9.3 H EOSINOPHIL % (test code = EO%) 2.6 % 0.0-6.0 N BASOPHIL % (test code = BA%) 0.4 % 0.0-2.0 N NUCLEATED RBC % (test code = 0.0 /100WBC% 0.0-1.0 N NRBC%) NEUTROPHIL # (test code = NT#) 3.6 K/mm3 1.8-7.6 N IMMATURE GRANULOCYTE # (test 0.01 x10 3/uL 0.00-0.03 N code = IG#) LYMPHOCYTE # (test code = LY#) 0.8 K/mm3 0.6-3.2 N MONOCYTE # (test code = MO#) 0.5 K/mm3 0.3-1.1 N EOSINOPHIL # (test code = EO#) 0.1 K/mm3 0.0-0.4 N BASOPHIL # (test code = BA#) 0.0 K/mm3 0.0-0.1 N NUCLEATED RBC # (test code = 0.0 K/mm3 0.0-0.1 N NRBC#) MANUAL DIFF REQUIRED (test code NO DIFF/SCN CRITERIA = MDIFF) CBC W/AUTO [id number] 13:53:00 Test Item Value Reference Range Interpretation Comments WHITE BLOOD CELL (test code = WBC) 5.0 K/mm3 3.5-11.0 N RED BLOOD CELL (test code = RBC) 4.45 M/mm3 4.70-6.10 L HEMOGLOBIN (test code = HGB) 10.2 G/DL 10.4-14.9 L HEMATOCRIT (test code = HCT) 39.8 % 31.5-44.1 N MEAN CELL VOLUME (test code = MCV) 89.4 Fl 84.5-98.6 N MEAN CELL HGB (test code = MCH) 22.9 pg 27.0-34.2 L MEAN CELL HGB CONCETRATION (test 25.6 G/DL 31.5-34.0 L code = MCHC) RED CELL DISTRIBUTION WIDTH (test SD 11.5-14.5 H code = RDW) PLATELET COUNT (test code = PLT) 254 K/mm3 150-450 N MEAN PLATELET VOLUME (test code = fL 7.0-10.5 H MPV) NEUTROPHIL % (test code = NT%) % 40-76 N IMMATURE GRANULOCYTE % (test code % 0.0-5.0 N = IG%) LYMPHOCYTE % (test code = LY%) % 20.5-51.1 L MONOCYTE % (test code = MO%) % 1.7-9.3 H EOSINOPHIL % (test code = EO%) % 0.0-6.0 N BASOPHIL % (test code = BA%) % 0.0-2.0 N NUCLEATED RBC % (test code = /100WBC% 0.0-1.0 N NRBC%) NEUTROPHIL # (test code = NT#) K/mm3 1.8-7.6 N IMMATURE GRANULOCYTE # (test code x10 3/uL 0.00-0.03 N = IG#) LYMPHOCYTE # (test code = LY#) K/mm3 0.6-3.2 N MONOCYTE # (test code = MO#) K/mm3 0.3-1.1 N EOSINOPHIL # (test code = EO#) K/mm3 0.0-0.4 N BASOPHIL # (test code = BA#) K/mm3 0.0-0.1 N NUCLEATED RBC # (test code = K/mm3 0.0-0.1 N NRBC#) MANUAL DIFF REQUIRED (test code = DIFF/SCN CRITERIA MDIFF) BASIC METABOLIC [id number] 13:51:00 Test Item Value Reference Range Interpretation Comments SODIUM (test code = NA) 142 mmol/L 134-147 N POTASSIUM (test code = 3.2 mmol/L 3.4-5.0 L K) CHLORIDE (test code = 101 mmol/L 100-108 N CL) CARBON DIOXIDE (test 39 mmol/L 21-32 H code = CO2) ANION GAP (test code = 2.0 GAP calc 4.0-15.0 L GAP) GLUCOSE (test code = 110 MG/DL 70-110 N GLU) BLOOD UREA NITROGEN 7 MG/DL 7-18 N (test code = BUN) GLOMERULAR FILTRATION >=60 max estimate >60 RATE (test code = GFR) estGFR CREATININE (test code = 0.6 MG/DL 0.6-1.0 N CREAT) CALCIUM (test code = CA) 8.8 MG/DL 8.5-10.1 N [id number] 13:51:00 Test Item Value Reference Range Interpretation Comments MAGNESIUM (test code = MAG) 2.1 MG/DL 1.8-2.4 N GLUCOSE BEDSIDE [id number] 13:20:00 Test Item Value Reference Range Interpretation Comments GLUCOSE BEDSIDE TESTING (test code 110 mg/dL 70-110 N = GLUBED) PROTHROMBIN [id number] 06:00:00 Test Item Value Reference Range Interpretation Comments PT PATIENT (test 14.8 SECONDS 9.3-12.9 H code = PTP) INTERNATIONAL NORMAL 1.31 INR Unit 0.8-1.2 H TARGET RATIO (test code = INR BY IN DICATION INR) Indication INR1. Prophyl axis of venous thrombos is 2.0 - 3. 0 (orthopedic yinka amelia), Prophylaxis of venous thrombos is (other than hig h-risk surgery), Cherelle tment of Deep Vein Thrombosis/Pulm onary Embolism, Preve ntion of systemic emb olism - Tissue heart va lves, Acute Myocardia l Infarction (to prevent systemic embo lism), Valvular heart disease, Acut e Myocardial Infa rction (to prevent s ystemic embolism), Valv ular heart disease, Atrial Fibrilla tion, Bileaflet mecha nical valve in aortic position.2. Mec hanical prosthetic valv es (high risk), 2.5 - 3.5 Presence of Lupus Anticoagu lant or Antiphospholi pid Antibodies, Pre vention of systemic e mbolism - Acute Myocard ial Infarction (t o prevent recurre nt infarct). VANCOMYCIN [id number] 21:30:00 Test Item Value Reference Range Interpretation Comments VANCOMYCIN TROUGH (test code = 25.2 mcG/ML 10-20 H VANCT) PROTHROMBIN [id number] 06:22:00 Test Item Value Reference Range Interpretation Comments PT PATIENT (test 16.5 SECONDS 9.3-12.9 H code = PTP) INTERNATIONAL NORMAL 1.46 INR Unit 0.8-1.2 H TARGET RATIO (test code = INR BY IN DICATION INR) Indication INR1. Prophyl axis of venous thrombos is 2.0 - 3. 0 (orthopedic yinka amelia), Prophylaxis of venous thrombos is (other than hig h-risk surgery), Cherelle tment of Deep Vein Thrombosis/Pulm onary Embolism, Preve ntion of systemic emb olism - Tissue heart va lves, Acute Myocardia l Infarction (to prevent systemic embo lism), Valvular heart disease, Acut e Myocardial Infa rction (to prevent s ystemic embolism), Valv ular heart disease, Atrial Fibrilla tion, Bileaflet mecha nical valve in aortic position.2. Mec hanical prosthetic valv es (high risk), 2.5 - 3.5 Presence of Lupus Anticoagu lant or Antiphospholi pid Antibodies, Pre vention of systemic e mbolism - Acute Myocard ial Infarction (t o prevent recurre nt infarct). - XR CHEST 1 [id number] 15:50:00 [facility] 1975 Sex: F Name: GRAZYNA GOMEZ [facility] : 1975 Age/S: 46 / F [address] Unit #: [id number] Loc: [place] [address] Phys: Darryl Haney MD Acct: [id number] Dis Date: Status: ADM IN PHONE #: [phone] Exam Date: 07/12/2021 1450 FAX #: Reason:sob EXAMS: CPT: [id number] XR CHEST 1 V 07730 Fluoro Time: DAP (Gy m2): Air Kerma (mGy): Chest one view AP 07/12/2021 3:46 PM CLINICAL INDICATION: Shortness of breath COMPARISON: 07/10/2021 LOCATION: W1 IMPRESSION: Cardiomediastinal contours are stable. There is moderately advanced pulmonary edema with a moderate volume left pleural effusion.Opacity in the left lung base may reflect atelectasis or pneumonia. at 1550 Reported and signed by: Helder Nunez M.D.CC: Darryl Haney MD; Astrid Olmos MD PAGE 1 Signed Report Name: GRAZYNA GOMEZ [facility] : 1975 Age/S: 46 / F [address] [facility] Unit #: [id number] Loc: [place] [address] Phys: Darryl Haney MD Acct: [id number] Dis Date: Status: ADM INPHONE #: [phone] Exam Date: 07/12/2021 1450 FAX #: Reason: sob EXAMS: CPT: [id number] XR CHEST 1 V 11001 FluoroTime: DAP (Gy m2): Air Kerma (mGy): <Continued> Technologist: Karen Mathews, RT(R)(CT); Vignesh Redd, RT(R)(CT); .Trnscb Date/Time: 07/12/2021 (4088) [id number] Orig Print D/T: S: 07/12/2021 (6873) PAGE 2 Signed ReportBASIC METABOLIC PANEL 2021-07-12 05:30:00 Test Item Value Reference Range Interpretation Comments SODIUM (test code = 140 mmol/L 134-147 N NA) POTASSIUM (test code 3.2 mmol/L 3.4-5.0 L = K) CHLORIDE (test code 93 mmol/L 100-108 L = CL) CARBON DIOXIDE (test 50 mmol/L 21-32 HH RESULTS OBTAINED code = CO2) WITH MAN DIL 1: 2 ANION GAP (test code -3.0 GAP calc 4.0-15.0 L = GAP) GLUCOSE (test code = 81 MG/DL 70-110 N GLU) BLOOD UREA NITROGEN 8 MG/DL 7-18 N (test code = BUN) GLOMERULAR >=60 max estimate >60 FILTRATION RATE estGFR (test code = GFR) CREATININE (test 0.5 MG/DL 0.6-1.0 L code = CREAT) CALCIUM (test code = 8.6 MG/DL 8.5-10.1 N CA) BASIC METABOLIC [id number] 05:18:00 Test Item Value Reference Range Interpretation Comments SODIUM (test code = NA) 140 mmol/L 134-147 N POTASSIUM (test code = 3.2 mmol/L 3.4-5.0 L K) CHLORIDE (test code = 93 mmol/L 100-108 L CL) CARBON DIOXIDE (test mmol/L 21-32 code = CO2) ANION GAP (test code = GAP calc 4.0-15.0 GAP) GLUCOSE (test code = 81 MG/DL 70-110 N GLU) BLOOD UREA NITROGEN 8 MG/DL 7-18 N (test code = BUN) GLOMERULAR FILTRATION >=60 max estimate >60 RATE (test code = GFR) estGFR CREATININE (test code = 0.5 MG/DL 0.6-1.0 L CREAT) CALCIUM (test code = CA) 8.6 MG/DL 8.5-10.1 N PROTHROMBIN [id number] 05:07:00 Test Item Value Reference Range Interpretation Comments PT PATIENT (test 18.6 SECONDS 9.3-12.9 H code = PTP) INTERNATIONAL NORMAL 1.64 INR Unit 0.8-1.2 H TARGET RATIO (test code = INR BY IN DICATION INR) Indication INR1. Prophyl axis of venous thrombos is 2.0 - 3. 0 (orthopedic yinka amelia), Prophylaxis of venous thrombos is (other than hig h-risk surgery), Cherelle tment of Deep Vein Thrombosis/Pulm onary Embolism, Preve ntion of systemic emb olism - Tissue heart va lves, Acute Myocardia l Infarction (to prevent systemic embo lism), Valvular heart disease, Acut e Myocardial Infa rction (to prevent s ystemic embolism), Valv ular heart disease, Atrial Fibrilla tion, Bileaflet mecha nical valve in aortic position.2. Mec hanical prosthetic valv es (high risk), 2.5 - 3.5 Presence of Lupus Anticoagu lant or Antiphospholi pid Antibodies, Pre vention of systemic e mbolism - Acute Myocard ial Infarction (t o prevent recurre nt infarct). ARTERIAL BLOOD [id number] 12:36:00 Test Item Value Reference Range Interpretation Comments ARTERIAL BLOOD GAS PH 7.48 pH units 7.35-7.45 H (test code = PHA) ARTERIAL BLOOD GAS PCO2 73 mmHg 35-45 HH (test code = PCO2A) ARTERIAL BLOOD GAS PO2 73 mmHg 80-100 L (test code = PO2A) BICARBONATE TOTAL HCO3 52.8 mmol/L 22.0-26.0 H (test code = HCO3) BASE EXCESS (test code = 23.9 mmol/L -3.0-3.0 H RAMÓN) ABG O2 SATURATION (test 95 % 90-100 N code = SATA) FIO2 (test code = FIO2A) 36 % (calc) 21-100 N ABG VENT MODE (test code Nasal Cannula Vent Mode = MODEA) Descript ABG SITE (test code = Other ARTKIT DESCRIPTION SITEA) MODIFIED CANDACE'S (test No Circ.CHK POSITIVE code = MODALL) [id number]/[id number] 12:36:00 Test Item Value Reference Range Interpretation Comments PaO2/FiO2 (test code mm/Hg See_Comment [Autom ated message] The = [id number]) system which ge nerated this result transmit sandy reference range : 200. The reference range was not used to interpr et this result as lucila l/abnormal. ARTERIAL BLOOD [id number] 12:36:00 Test Item Value Reference Range Interpretation Comments ARTERIAL BLOOD GAS PH 7.48 pH units 7.35-7.45 H (test code = PHA) ARTERIAL BLOOD GAS PCO2 73 mmHg 35-45 HH (test code = PCO2A) ARTERIAL BLOOD GAS PO2 73 mmHg 80-100 L (test code = PO2A) BICARBONATE TOTAL HCO3 52.8 mmol/L 22.0-26.0 H (test code = HCO3) BASE EXCESS (test code = 23.9 mmol/L -3.0-3.0 H RAMÓN) ABG O2 SATURATION (test 95 % 90-100 N code = SATA) FIO2 (test code = FIO2A) 36 % (calc) 21-100 N ABG VENT MODE (test code Nasal Cannula Vent Mode = MODEA) Descript ABG SITE (test code = Other ARTKIT DESCRIPTION SITEA) MODIFIED CANDACE'S (test No Circ.CHK POSITIVE code = MODALL) [id number] 12:36:00 Test Item Value Reference Range Interpretation Comments PaO2/FiO2 (test 202.8 mm/Hg See_Comment [Automated message] The code = [id number]) system whic h generated this result tra nsmitted reference range : 200. The reference r will was not used to int erpret this result as normal/abnormal . PROTHROMBIN [id number] 05:50:00 Test Item Value Reference Range Interpretation Comments PT PATIENT (test 23.9 SECONDS 9.3-12.9 H code = PTP) INTERNATIONAL NORMAL 2.10 INR Unit 0.8-1.2 H TARGET RATIO (test code = INR BY IN DICATION INR) Indication INR1. Prophyl axis of venous thrombos is 2.0 - 3. 0 (orthopedic yinka amelia), Prophylaxis of venous thrombos is (other than hig h-risk surgery), Cherelle tment of Deep Vein Thrombosis/Pulm onary Embolism, Preve ntion of systemic emb olism - Tissue heart va lves, Acute Myocardia l Infarction (to prevent systemic embo lism), Valvular heart disease, Acut e Myocardial Infa rction (to prevent s ystemic embolism), Valv ular heart disease, Atrial Fibrilla tion, Bileaflet mecha nical valve in aortic position.2. Mec hanical prosthetic valv es (high risk), 2.5 - 3.5 Presence of Lupus Anticoagu lant or Antiphospholi pid Antibodies, Pre vention of systemic e mbolism - Acute Myocard ial Infarction (t o prevent recurre nt infarct). THROMBOPLASTIN TIME [id number] 05:50:00 Test Item Value Reference Range Interpretation Comments THROMBOPLASTIN TIME PARTIAL 30.5 SECONDS 26-35 N (test code = PTT) [id number] 05:50:00 Test Item Value Reference Range Interpretation Comments D-DIMER (test 2225 ng/mLFEU 215-500 HH THROMBOSIS AN D/OR PULMONARY code = EMBOLISM AND TH E CLINICAL DDIMER) CUT-OFF VALUE F OR EXCLUSION (500 ng/mL FEU) OF THESE CONDITIONSIS VA LIDATED BY THE MANUFACTURE R OF THE METHOD. A NEGAT COSME D-DIMER RESULT WHEN COM BINED WITH A CLINICALASSESSM ENT OF LOW PRETEST PROBABI LITY HAS BEEN SHOWN TO H AVEA HIGH NEGATIVE PREDIC TIVE VALUE OF DVT OR PE. D -DIMER VALUES >500 ng/ mL FEU ARE NOT DIAGNOSTIC FOR DVT, PEor DIC WITHOU T OTHER CONFIRMATORY TE STS AND APPROPRIATECLIN ICAL EUALUATIONS. RULE OUT RI [id number] 05:42:00 Test Item Value Reference Range Interpretation Comments CREATINE KINASE 59 Unit/L 26-192 N (CK) (test code = CK) TROPONIN-I (test < 0.015 NG/ML 0.000-0.045 N Negative: </= 0.045 code = TROPI) Positive: >/= 0.046 Correlation wit h serial results, other cardiac markers , and clinical findin gs is necessary to de termine the clinical significance of this result. Quantit ative results using different methodologies s hould not be compared to one another as nume rical results may sharon yby method. UA RFLX MICR CULT IF [id number] 05:13:00 Test Item Value Reference Range Interpretation Comments UA COLOR (test code = YELLOW discript YEL/STRAW COLU) UA APPEARANCE (test code HAZY discript CLEAR A = APPU) UA GLUCOSE DIPSTICK (test NEGATIVE mg/dL NEG code = DGLUU) UA BILIRUBIN DIPSTICK 1+ mg/dL NEG A (test code = BILU) UA KETONE DIPSTICK (test NEGATIVE mg/dL NEG code = KETU) UA SPECIFIC GRAVITY (test 1.025 SG 1.005-1.030 code = SGU) UA BLOOD DIPSTICK (test 3+ mg/DL NEG A code = LELE) UA PH DIPSTICK (test code 6.0 pH UNITS 5.0-7.0 = TRINIDAD) UA PROTEIN DIPSTICK (test TRACE mg/dL NEG A code = PROU) UA UROBILINIOGEN DIPSTICK 1.0 mg/dL <2.0 (test code = URO) UA NITRITE DIPSTICK (test NEGATIVE SCREEN NEG code = JOSE) UA LEUKOCYTE ESTERASE TRACE Leuk/mcL NEGATIVE A DIPSTICK (test code = LEUU) UA WBC (test code = WBCU) 3-5 #WBC/HPF 0-3 A UA RBC (test code = RBCU) 50-100 #RBC/HPF 0-3 A UA BACTERIA (test code = 1+ /HPF NONE-TRACE A BACU) UA SQUAMOUS CELLS (test 2+ /HPF NONE A code = SQU) UA MUCUS (test code = 1+ /LPF NONE SEEN MUCU) UA CULTURE NEEDED? (test NO, WBC<10 Criteria Culture CHK code = UACULT) Indication for culture: RiskForSepsis-no oth srcUA RFLX MICR CULT IF [id number] 05:11:00 Test Item Value Reference Range Interpretation Comments UA COLOR (test code = COLU) YELLOW discript YEL/STRAW UA APPEARANCE (test code = HAZY discript CLEAR A APPU) UA GLUCOSE DIPSTICK (test NEGATIVE mg/dL NEG code = DGLUU) UA BILIRUBIN DIPSTICK (test 1+ mg/dL NEG A code = BILU) UA KETONE DIPSTICK (test code NEGATIVE mg/dL NEG = KETU) UA SPECIFIC GRAVITY (test 1.025 SG 1.005-1.030 code = SGU) UA BLOOD DIPSTICK (test code 3+ mg/DL NEG A = LELE) UA PH DIPSTICK (test code = 6.0 pH UNITS 5.0-7.0 TRINIDAD) UA PROTEIN DIPSTICK (test TRACE mg/dL NEG A code = PROU) UA UROBILINIOGEN DIPSTICK 1.0 mg/dL <2.0 (test code = URO) UA NITRITE DIPSTICK (test NEGATIVE SCREEN NEG code = JOSE) UA LEUKOCYTE ESTERASE TRACE Leuk/mcL NEGATIVE A DIPSTICK (test code = LEUU) UA CULTURE NEEDED? (test code Criteria Culture CHK = UACULT) Indication for culture: RiskForSepsis-no oth srcNT PRO-BRAIN NATRIURETIC [id number] 03:15:00 Test Item Value Reference Range Interpretation Comments NT PRO-BRAIN NATRIURETIC PEPTI 1759 PG/ML 0-100 H (test code = PROBNP) CBC W/AUTO [id number] 02:26:00 Test Item Value Reference Range Interpretation Comments WHITE BLOOD CELL 4.7 K/mm3 3.5-11.0 N (test code = WBC) RED BLOOD CELL (test 4.70 M/mm3 4.70-6.10 N code = RBC) HEMOGLOBIN (test code 10.6 G/DL 10.4-14.9 N = HGB) HEMATOCRIT (test code 43.4 % 31.5-44.1 N = HCT) MEAN CELL VOLUME 92.3 Fl 84.5-98.6 N (test code = MCV) MEAN CELL HGB (test 22.6 pg 27.0-34.2 L code = MCH) MEAN CELL HGB 24.4 G/DL 31.5-34.0 L CONCETRATION (test code = MCHC) RED CELL DISTRIBUTION 25.2 SD 11.5-14.5 H WIDTH (test code = RDW) PLATELET COUNT (test 288 K/mm3 150-450 N code = PLT) MEAN PLATELET VOLUME 10.90 fL 7.0-10.5 H (test code = MPV) NEUTROPHIL % (test 69.8 % 40-76 N code = NT%) IMMATURE GRANULOCYTE 0.2 % 0.0-5.0 N % (test code = IG%) LYMPHOCYTE % (test 16.5 % 20.5-51.1 L code = LY%) MONOCYTE % (test code 11.6 % 1.7-9.3 H = MO%) EOSINOPHIL % (test 1.3 % 0.0-6.0 N code = EO%) BASOPHIL % (test code 0.6 % 0.0-2.0 N = BA%) NUCLEATED RBC % (test 0.0 /100WBC% 0.0-1.0 N code = NRBC%) NEUTROPHIL # (test 3.3 K/mm3 1.8-7.6 N code = NT#) IMMATURE GRANULOCYTE 0.01 x10 3/uL 0.00-0.03 N # (test code = IG#) LYMPHOCYTE # (test 0.8 K/mm3 0.6-3.2 N code = LY#) MONOCYTE # (test code 0.6 K/mm3 0.3-1.1 N = MO#) EOSINOPHIL # (test 0.1 K/mm3 0.0-0.4 N code = EO#) BASOPHIL # (test code 0.0 K/mm3 0.0-0.1 N = BA#) NUCLEATED RBC # (test 0.0 K/mm3 0.0-0.1 N code = NRBC#) MANUAL DIFF REQUIRED NO DIFF/SCN CRITERIA SLIDE R GERAW (test code = MDIFF) CONSISTA NT WITH AUTO DIFFERENTI AL. CBC W/AUTO [id number] 02:26:00 Test Item Value Reference Range Interpretation Comments WHITE BLOOD CELL 4.7 K/mm3 3.5-11.0 N (test code = WBC) RED BLOOD CELL (test 4.70 M/mm3 4.70-6.10 N code = RBC) HEMOGLOBIN (test code 10.6 G/DL 10.4-14.9 N = HGB) HEMATOCRIT (test code 43.4 % 31.5-44.1 N = HCT) MEAN CELL VOLUME 92.3 Fl 84.5-98.6 N (test code = MCV) MEAN CELL HGB (test 22.6 pg 27.0-34.2 L code = MCH) MEAN CELL HGB 24.4 G/DL 31.5-34.0 L CONCETRATION (test code = MCHC) RED CELL DISTRIBUTION 25.2 SD 11.5-14.5 H WIDTH (test code = RDW) PLATELET COUNT (test 288 K/mm3 150-450 N code = PLT) MEAN PLATELET VOLUME 10.90 fL 7.0-10.5 H (test code = MPV) NEUTROPHIL % (test 69.8 % 40-76 N code = NT%) IMMATURE GRANULOCYTE 0.2 % 0.0-5.0 N % (test code = IG%) LYMPHOCYTE % (test 16.5 % 20.5-51.1 L code = LY%) MONOCYTE % (test code 11.6 % 1.7-9.3 H = MO%) EOSINOPHIL % (test 1.3 % 0.0-6.0 N code = EO%) BASOPHIL % (test code 0.6 % 0.0-2.0 N = BA%) NUCLEATED RBC % (test 0.0 /100WBC% 0.0-1.0 N code = NRBC%) NEUTROPHIL # (test 3.3 K/mm3 1.8-7.6 N code = NT#) IMMATURE GRANULOCYTE 0.01 x10 3/uL 0.00-0.03 N # (test code = IG#) LYMPHOCYTE # (test 0.8 K/mm3 0.6-3.2 N code = LY#) MONOCYTE # (test code 0.6 K/mm3 0.3-1.1 N = MO#) EOSINOPHIL # (test 0.1 K/mm3 0.0-0.4 N code = EO#) BASOPHIL # (test code 0.0 K/mm3 0.0-0.1 N = BA#) NUCLEATED RBC # (test 0.0 K/mm3 0.0-0.1 N code = NRBC#) MANUAL DIFF REQUIRED NO DIFF/SCN CRITERIA SLIDE R EVIEW (test code = MDIFF) CONSISTA NT WITH AUTO DIFFERENTI AL. RBC [id number] 02:26:00 Test Item Value Reference Range Interpretation Comments HYPOCHROMIA (test code = HYPO) 1+ ON SCAN NONE ANISOCYTOSIS (test code = 1+ NONE ANISO) STOMATOCYTES (test code = STO) TRACE ON SCAN NONE CBC W/AUTO [id number] 02:26:00 Test Item Value Reference Range Interpretation Comments WHITE BLOOD CELL 4.7 K/mm3 3.5-11.0 N (test code = WBC) RED BLOOD CELL (test 4.70 M/mm3 4.70-6.10 N code = RBC) HEMOGLOBIN (test code 10.6 G/DL 10.4-14.9 N = HGB) HEMATOCRIT (test code 43.4 % 31.5-44.1 N = HCT) MEAN CELL VOLUME 92.3 Fl 84.5-98.6 N (test code = MCV) MEAN CELL HGB (test 22.6 pg 27.0-34.2 L code = MCH) MEAN CELL HGB 24.4 G/DL 31.5-34.0 L CONCETRATION (test code = MCHC) RED CELL DISTRIBUTION 25.2 SD 11.5-14.5 H WIDTH (test code = RDW) PLATELET COUNT (test 288 K/mm3 150-450 N code = PLT) MEAN PLATELET VOLUME 10.90 fL 7.0-10.5 H (test code = MPV) NEUTROPHIL % (test 69.8 % 40-76 N code = NT%) IMMATURE GRANULOCYTE 0.2 % 0.0-5.0 N % (test code = IG%) LYMPHOCYTE % (test 16.5 % 20.5-51.1 L code = LY%) MONOCYTE % (test code 11.6 % 1.7-9.3 H = MO%) EOSINOPHIL % (test 1.3 % 0.0-6.0 N code = EO%) BASOPHIL % (test code 0.6 % 0.0-2.0 N = BA%) NUCLEATED RBC % (test 0.0 /100WBC% 0.0-1.0 N code = NRBC%) NEUTROPHIL # (test 3.3 K/mm3 1.8-7.6 N code = NT#) IMMATURE GRANULOCYTE 0.01 x10 3/uL 0.00-0.03 N # (test code = IG#) LYMPHOCYTE # (test 0.8 K/mm3 0.6-3.2 N code = LY#) MONOCYTE # (test code 0.6 K/mm3 0.3-1.1 N = MO#) EOSINOPHIL # (test 0.1 K/mm3 0.0-0.4 N code = EO#) BASOPHIL # (test code 0.0 K/mm3 0.0-0.1 N = BA#) NUCLEATED RBC # (test 0.0 K/mm3 0.0-0.1 N code = NRBC#) MANUAL DIFF REQUIRED NO DIFF/SCN CRITERIA SLIDE R EUGENIO (test code = MDIFF) CONSISTA NT WITH AUTO DIFFERENTI AL. LACTIC [id number] 01:43:00 Test Item Value Reference Range Interpretation Comments LACTIC ACID (test code = LACT) 1.2 mmol/L 0.4-2.0 N BASIC METABOLIC [id number] 01:41:00 Test Item Value Reference Range Interpretation Comments SODIUM (test code = NA) 141 mmol/L 134-147 N POTASSIUM (test code = 4.1 mmol/L 3.4-5.0 N K) CHLORIDE (test code = 94 mmol/L 100-108 L CL) CARBON DIOXIDE (test 48 mmol/L 21-32 HH code = CO2) ANION GAP (test code = -1.0 GAP calc 4.0-15.0 L GAP) GLUCOSE (test code = 99 MG/DL 70-110 N GLU) BLOOD UREA NITROGEN 8 MG/DL 7-18 N (test code = BUN) GLOMERULAR FILTRATION >=60 max estimate >60 RATE (test code = GFR) estGFR CREATININE (test code = 0.4 MG/DL 0.6-1.0 L CREAT) CALCIUM (test code = CA) 8.9 MG/DL 8.5-10.1 N Completed by Nursing: NOHEPATIC FUNCTION [id number] 01:41:00 Test Item Value Reference Range Interpretation Comments TOTAL PROTEIN (test code = PROT) 8.0 G/DL 6.4-8.2 N ALBUMIN (test code = ALB) 3.0 G/DL 3.4-5.0 L BILIRUBIN TOTAL (test code = BILT) 1.00 MG/DL 0.2-1.2 N BILIRUBIN DIRECT (test code = 0.50 MG/DL 0.00-0.30 H BILD) BILIRUBIN INDIRECT (test code = 0.50 MG/DL 0.2-1.2 N BILIND) SGOT/AST (test code = AST) 30 Unit/L 15-37 N SGPT/ALT (test code = ALT) 24 Unit/L 12-78 N ALKALINE PHOSPHATASE TOTAL (test 51 Unit/L 45-117 N code = ALKP) Completed by Nursing: [id number] 01:41:00 Test Item Value Reference Range Interpretation Comments TROPONIN-I (test < 0.015 NG/ML 0.000-0.045 N Negative: </= 0.045 code = TROPI) Positive: >/= 0.046 Correlation wit h serial results, other cardiac markers, and cl inical findings is nec essary to determine the c linical significance of this result. Quantit ative results using d ifferent methodologies s hould not be compared to one another as nume rical results may sharon yby method. Completed by Nursing: NOCOVID 19 INHOUSE [id number] 01:36:00 Test Item Value Reference Range Interpretation Comments COVID 19 INHOUSE AG NEGATIVE Negative Per manu facturer, (test code = negative result s should [id number]) be treated aspr esumptive and, if inconsi stent with clinical signs andsymptoms or necessary for patient man agement, should betested with an alternative mol ecular assay. Negative resultsdo not preclude SA RS-CoV-2 infection and s hould not be usedas the s ole basis for patient man agement decisions. Neg ative results should be considered in t he context of apatient's r ecent exposures, hist ory, presence of cli nicalsigns and symptoms co nsistent with COVID-19. CBC W/AUTO [id number] 01:15:00 Test Item Value Reference Range Interpretation Comments WHITE BLOOD CELL (test code = WBC) 4.7 K/mm3 3.5-11.0 N RED BLOOD CELL (test code = RBC) 4.70 M/mm3 4.70-6.10 N HEMOGLOBIN (test code = HGB) 10.6 G/DL 10.4-14.9 N HEMATOCRIT (test code = HCT) 43.4 % 31.5-44.1 N MEAN CELL VOLUME (test code = MCV) 92.3 Fl 84.5-98.6 N MEAN CELL HGB (test code = MCH) 22.6 pg 27.0-34.2 L MEAN CELL HGB CONCETRATION (test 24.4 G/DL 31.5-34.0 L code = MCHC) RED CELL DISTRIBUTION WIDTH (test SD 11.5-14.5 H code = RDW) PLATELET COUNT (test code = PLT) 288 K/mm3 150-450 N MEAN PLATELET VOLUME (test code = fL 7.0-10.5 H MPV) NEUTROPHIL % (test code = NT%) % 40-76 N IMMATURE GRANULOCYTE % (test code % 0.0-5.0 N = IG%) LYMPHOCYTE % (test code = LY%) % 20.5-51.1 L MONOCYTE % (test code = MO%) % 1.7-9.3 H EOSINOPHIL % (test code = EO%) % 0.0-6.0 N BASOPHIL % (test code = BA%) % 0.0-2.0 N NUCLEATED RBC % (test code = /100WBC% 0.0-1.0 N NRBC%) NEUTROPHIL # (test code = NT#) K/mm3 1.8-7.6 N IMMATURE GRANULOCYTE # (test code x10 3/uL 0.00-0.03 N = IG#) LYMPHOCYTE # (test code = LY#) K/mm3 0.6-3.2 N MONOCYTE # (test code = MO#) K/mm3 0.3-1.1 N EOSINOPHIL # (test code = EO#) K/mm3 0.0-0.4 N BASOPHIL # (test code = BA#) K/mm3 0.0-0.1 N NUCLEATED RBC # (test code = K/mm3 0.0-0.1 N NRBC#) MANUAL DIFF REQUIRED (test code = DIFF/SCN CRITERIA MDIFF) - XR CHEST 1 [id number] 23:46:00 [facility] 1975 Sex: F Name: GRAZYNA GOMEZ [facility] : 1975 Age/S: 46 / F [address] [address] Unit #: [id number] Loc: [place] [address] Phys: Ruddy Vargas MD Acct: [id number] Dis Date: Status: PRE ER PHONE #: [phone] Exam Date: 07/10/20212334 FAX #: Reason:Code Sepsis EXAMS: CPT: [id number] XR CHEST 1 V 54082 Fluoro Time: DAP (Gy m2): Air Kerma (mGy): EXAM: XR Chest 1 View I NDICATION: Code Sepsis LOCATION CODE: H50 COMPARISON: None available. TECHNIQUE: Frontal view of the chest was obtained. FINDINGS:Evaluation is limited secondary to underpenetration from patient body habitus. There are is moderate pulmonary vascular congestion with diffuse groundglass opacities. There is no definitepleural effusion or pneumothorax. The cardiomediastinal silhouette is enlarged. No acute osseous abnormality is identified. IMPRESSION: Limited evaluation secondary to patient body habitus. Cardiomegaly with findings suggestive of pulmonary edema. at 2346 Reported and signed by: Flower Villasenor MD CC: Ruddy Vargas MD PAGE 1 Signed Report Name: GRAZYNA GOMEZland : 1975 Age/S: 46 / F [address] [facility] Unit #: [id number] Loc: [place] [address] Phys: Ruddy Vargas RMD Acct: [id number] Dis Date: Status: PRE ER PHONE #: [phone] Exam Date: 07/10/2021 233 FAX #: Reason: Code Sepsis EX AMS: CPT: [id number] XR CHEST 1 V 79521 Fluoro Time: DAP (Gy m2): Air Kerma (mGy): <Continued> Technologist: RT Celeste(R) Trnscb Date/Time: 07/10/2021 (2346) [id number] Orig Print D/T: S: 07/10/2021 (4610) PAGE 2 Signed ReportPT/INR 2021-05-25 15:42:00 Test Item Value Reference Range Interpretation Comments PT (test code = 15.7 See_Comment H [Automated message] 5902-2) The system [employer] generated this result transmitted ref erence range: 11.7 - 1 4.5 Seconds. The re ference range was not u sed to interpret this result as normal/abnor mal. INR (test code = 1.3 Refer to INR 2.0 - 3.0 f or moderate 72665372) therapeutic ranges intensity anticoagulation 2.5 - 3.5 for high in tensity anticoagulation Lab Interpretation Abnormal (test code = 45296-8) [place] [address] LEAD [id number] 11:17:5812 LEAD EKG FOR [facility] Test Date: 4227-67-44Iif Name: GRAZYNA GOMEZ [facility] [place]: [id number] Room: Gender: F [employer]: Doc: 1975 Requested By: PUNEET LOPEZ Order Number: [id number] Reading MD: Mee Vincent MeasurementsIntervals Whiteside Rate: 101 P: UT: 0 QRS: 56QRSD: 112 T: 42QT: 381 QTc: 439 Interpretive StatementsATRIAL FIBRILLATION WITH RAPID VENTRICULAR RESPONSELOW QRS VOLTAGE IN PRECORDIAL LEADS [QRS DEFLECTION < 1.0 mVIN CHEST LEADS]MODERATE INTRAVENTRICULAR CONDUCTION DELAY [110+ ms QRS DURATION]NONSPECIFIC T-WAVE ABNORMALITYABNORMAL RHYTHM ECGReviewed by Electronically Signed On 05-25-2021 20:02:19CDT by Mee LizChester County Hospitalsi Metabolic [id number] 05:32:00 Test Item Value Reference Range Interpretation Comments Sodium (test code = 141 mmol/L 858-092 1255-2) Potassium (test code = 3.8 mmol/L 3.5-5.1 2823-3) Chloride (test code = 93 mmol/L 98-107 L 5-0) CO2 (test code = 45 mmol/L 21-31 H 46766843) Urea Nitrogen (test 8.0 mg/dL 06-09 code = 48890833) Creatinine (test code = 0.6 mg/dL 0.6-1.2 47279430) Glucose (test code = 98 mg/dL 70-110 42521993) Calcium (test code = 9.1 mg/dL 8.6-10.3 85864850) eGFR If Am >120 See_Comment [Automat ed message] (test code = 96947556) The s ystem which generated this result transmit sandy reference range : >=90 mL/min/1.7 3 m2. The reference r will was not used to interpret this result as normal/abnormal . eGFR If non- Am 111 See_Comment [Aut omated message] (test code = 06767700) The s ystem which generated this result transmit sandy reference range : >=90 mL/min/1.7 3 m2. The reference r will was not used to interpret this result as normal/abnormal . Anion Gap (test code = 3 mmol/L 5-16 L 18641294) Lab Interpretation Abnormal (test code = 09948-9) [id number] 05:32:00 Test Item Value Reference Range Interpretation Comments Magnesium (test code = 25805483) 2.0 mg/dL 1.9-2.7 Lab Interpretation (test code = Normal 14278-3) [facility]/[id number] 05:07:00 Test Item Value Reference Range Interpretation Comments WBC (test code = 6690-2) 7.0 K/uL 4.5-11 RBC (test code = 789-8) 4.31 See_Comment [Au tomated message] The system [employer] h generated this result transmit sandy reference range [...] (test code = 54.8 fL 36.4-46.3 H 85925-4) Platelet (test code = 294 K/uL 150-400 777-3) Mean Platelet Volume 10.4 fL 9.4-12.4 (test code = 16614-4) Percent NRBC (test code 0.0 % = 73446682) Neutrophil (test code = 71.0 % 34-70 H 770-8) Lymphs (test code = 15.9 % 20-50 L 736-9) Monocytes (test code = 10.3 % 5-12 5905-5) Eos (test code = 713-8) 1.6 % 0.7-5 Basos (test code = 0.9 % 0.1-1.2 706-2) Immature Granulocytes 0.3 % 0-0.5 (test code = 20210127) Neutrophils (Absolute) 4.97 K/uL 1.56-6.13 (test code = 16999308) Lymphs (Absolute) (test 1.11 K/uL 1.18-3.74 L code = 13051698) Monocytes(Absolute) 0.72 K/uL 0.24-0.36 H (test code = 75261070) Eos (Absolute) (test 0.11 K/uL 0.04-0.36 code = 21395226) Baso (Absolute) (test 0.06 K/uL 0.01-0.08 code = 43467210) Immature Grans (Abs) 0.02 K/uL 0-0.03 (test code = 54699302) Absolute NRBC (test code 0.00 K/uL = 56289960) Lab Interpretation (test Abnormal code = 84531-2) [facility] HospitalPregnancy [id number] 16:53:00 Test Item Value Reference Range Interpretation Comments (test code = 78032735) Negative Negative Lab Interpretation (test code = Normal 28235-7) [facility] HospitalPTT - every 6 hours x 24 [id number] 16:09:00 Test Item Value Reference Range Interpretation Comments PTT (test code = 45.1 See_Comment H The recomme nded 93878366) therapuetic ran ge is an APTT 61-103 seconds which corresponds to 0.3-0.7 anti Xa u/ml. [Automated mess age] The system [employer] generated this result transmitted ref erence range: 23.9 - 3 6.0 Seconds. The reference range was not used to int erpret this result as normal/abnormal . Lab Interpretation (test Abnormal code = 52762-7) [facility] LUNG PERFUSION IMAGING [id number] 18:46:40IMPRESSION: 1. Scan findings strongly suggest that [...] silhouette.Signed By: Crissy Dupree MD, 05/22/2021 6:46 PMMouthcard VampksI-[id number] 19:13:00 Test Item Value Reference Range Interpretation Comments D-Dimer (test code = 3.22 See_Comment H Values of 13664014) quantitative D- Dimer less than 0.40 ug/mL [...] . Lab Interpretation (test Abnormal code = 00554-7) [facility] HospitalZqitsfJzumzzopwm0993-24-49 18:55:00 Test Item Value Reference Range Interpretation Comments Color (test code = Yellow Colorless, Straw, 72382320) Yellow Clarity (test code = Clear Clear 23219809) Spec [place], Ur (test 1.012 1.001-1.035 code = 95719324) pH, Ur (test code = 6.0 5.0-8.0 07368425) Protein, Ur (test code Negative Negative mg/dL = 83462449) Glucose, Ur (test code Negative Negative mg/dL = 50558065) Ketone, Ur (test code = Negative Negative mg/dL 53671038) Bilirubin, Ur (test Negative Negative mg/dL code = 54339551) Nitrite, Ur (test code Negative Negative = 36892083) Leukocyte (test code = Negative Negative mg/dL 29737602) Blood, Ur (test code = 1+ Negative mg/dL A 06426680) RBC (test code = 5 See_Comment H [Automated message] 27518081) The system [employer] generated this result transmit sandy reference range : 0 - 4 /HPF. The reference range was not used to interpret this result as normal/abnormal . WBC (test code = 1 See_Comment [Automated message] 28341391) The system [employer] generated this result transmit sandy reference range : 0 - 5 /HPF. The reference range was not used to interpret this result as normal/abnormal . Epithelial Cell (test <1 See_Comment [Auto mated message] code = 16078066) The system which generated this result transmit sandy reference range : <=1 /HPF. The refer ence range was not u sed to interpret th is result as normal/abnormal . Mucous (test code = Present None seen /HPF A 40056318) Urobilinogen, Ur (test <1.0 See_Comment [Aut omated message] code = 77999551) The system which generated this result transmit sandy reference range : <1.0 EU/dL. The reference range was not used to interpret this result as normal/abnormal . Lab Interpretation Abnormal (test code = 49573-6) [facility]12 LEAD [id number] 17:44:5512 LEAD EKG FOR [facility] Test Date: 2255-47-96Btr Name: GRAZYNA GOMEZ Department: 5520Patient ID: [id number] Room: Gender: F [employer]: [id number]: 1975 Requested By: PUNEET LOPEZ Order Number: [id number] Reading MD: Mee Vincent MeasurementsIntervals Whiteside Rate: 115 P: UT: 0 QRS: 51QRSD: 116 T: 0QT: 169 QTc: 237 Interpretive StatementsATRIAL FLUTTER /TACHYCARDIA WITH RAPID VENTRICULAR RESPONSELOW QRS VOLTAGE IN PRECORDIAL LEADSMODERATE INTRAVENTRICULAR CONDUCTION DELAYNONSPECIFIC T-WAVE ABNORMALITYABNORMAL RHYTHM ECGReviewed by Electronically Signed On 05-22-2021 9:24:28 CDT by Mee LizThe [facility] HospitalTRANSTHORACIC ECHO (TTE)2021-05-21 10:14:00TRANSTHORACIC ECHO (TTE) Transthoracic Echo Report GRAZYNA GOMEZ Age: 46 Gender:F : 1975 Exam Date: 05/21/2021 06:37 ExamLocation[facility] Ordering Phys: PUNEET LOPEZ Referring Phys: Reading Phys: Mee Vincent MD Fellow Phys: Fellow Phys: Acoustical Carpenter: Taina Rene Reason For Exam: Indications: new afib, Other specified conduction disorders ICD-9 Codes: I45.89 Exam Type: TRANSTHORACIC ECHO (TTE) Procedure CPT: 41912 Addtional CPT: Ht (in): 67 BSA: 3.14 [...] Mass by linear method Index 101 g/m2 [facility] [id number] 08:01:00 Test Item Value Reference Range Interpretation Comments Hemoglobin A1c (test code = 4548-4) 5.9 % 4.3-6.1 Estimated Average Glucose (test 123 mg/dL 70-110 H code = 12524369) Lab Interpretation (test code = Abnormal 09135-2) [facility] [id number] 06:23:00 Test Item Value Reference Range Interpretation Comments Cholesterol (test 69.0 mg/dL See_Comment [Automate d message] code = 2093-3) The system [facility] generated this result transmit sandy reference range : <=200.0. The reference range was not used to interpret this result as normal/abnormal . Triglyceride (test 70 mg/dL <150 code = 56129389) HDL (test code = 18.0 mg/dL See Reference 2085-9) Range Narrative. LDL (test code = 37 mg/dL <100 Optimal: < 100.0 39875-9) mg/dLNear Optim al: 120-129 mg/dLBorderline : 130-159 mg/dLHi gh: 160-189 mg/dLVe ry High: >=190 mg/ dL Patient Fasting? Yes (test code = 35352593) [facility] Hospital[facility]avirus, CoVID-19, [id number] 23:30:00 Test Item Value Reference Range Interpretation Comments COVID-19 Not Detected Not Detected INTERPRETATION: (SARS-COV-2) (test No detect able code = 22452-2) levels of SARS-CoV-2 Coronavirus (COVID-19) were present [...] MARIO (test code = COMMENT: This MARIO) [employer] SARS-CoV-2 molecular diagnostic assay utilizes Materials Management Manager Mediated Amplification (TMA) technology to rapidly detect the SARS-CoV-2 (COVID-19) virus from respiratory samples. In accordance with the FDA's guidance document "Policy for Diagnostic Tests for Coronavirus Disease-2019 during the Public Health Emergency", this test was developed, and its performance characteristics were verified by the [facility] laboratory and is authorized for clinical diagnostic use. This laboratory is certified under the Clinical Laboratory Improvement Amendments (CLIA) as qualified to perform high complexity clinical laboratory testing. Lab Interpretation Normal (test code = 73753-0) [facility] [id number] 17:27:00 Test Item Value Reference Range Interpretation Comments Free T4 (test code = 90393948) 1.04 ng/dl 0.64-1.42 Lab Interpretation (test code = Normal 08746-7) [facility] HospitalUcobqyMFE5950-33-94 17:25:00 Test Item Value Reference Range Interpretation Comments TSH (test code = 5.13 See_Comment If , please 91084619) see the followi ng reference range s [...] . Lab Interpretation (test Normal code = 36920-2) [facility] HospitalBeta-hCG, Pilixoezalzv3054-10-22 17:14:00 Test Item Value Reference Range Interpretation Comments hCG, Quantitative (test <1.0 See_Comment [Au tomated message] code = 85029356) The system which generated this result transmitted ref erence range: <5.0 mIU /mL. The reference r will was not used to interpret this result as normal/abnor mal. Lab Interpretation (test Normal code = 99124-9) [facility] HospitalB-Type Natriuretic Peptide (BNP)2021-05-20 17:12:00 Test Item Value Reference Range Interpretation Comments B Natriuretic Peptide 173 pg/mL See_Comment H [Auto mated message] (BNP) (test code = The syste m which 98926343) generated this result transmit sandy reference range : <=100. The refe rence range was not u sed to interpret th is result as normal/abnormal . Lab Interpretation (test Abnormal code = 50173-4) [facility] HospitalTroponin [id number] 17:11:00 Test Item Value Reference Interpretation Comments Range Troponin I (test <0.03 See_Comment [Automated code = 33264207) message] Th e system which generated this result transmitted reference range : <0.04 ng/mL. e reference range was not used to [...] patient, acute events such as myocardial infarction (RI) may be distinguished from other conditions causing [...] values. Lab Interpretation Normal (test code = 12287-3) [facility] HospitalXRAY CHEST 1 [id number] 16:25:32IMPRESSION: Evidence of pulmonary vascular congestion. Mild [...] study.Signed By: Francis Thompson MD, 05/20/2021 4:25 [facility]12 LEAD [id number] 15:54:3812 LEAD EKG FOR [facility] Test Date: 8243-31-90Ihe Name: GRAZYNA GOMEZ Department: 55Patient ID: [id number] Room: [place] [address]Gender: F All Round Butcher: [id number]: 1975 Requested By: NATHALIE Carrillo Number: [id number] Reading MD: nathan albert MeasurementsIntervals Whiteside Rate: 116 P: UT: 0 QRS: 26QRSD: 106 T: -6QT: 325 QTc: 394 Interpretive StatementsATRIAL FLU TTER/TACHYCARDIA WITH RAPID VENTRICULAR RESPONSELOW QRS VOLTAGE IN PRECORDIAL LEADS [QRS DEFLECTION< 1.0 mV IN CHEST LEADS]ABNORMAL RHYTHM ECGElectronically Signed On 05-20-2021 20:27:02 CDT by [facility] POCT TROPONIN I POC docked [id number] 15:42:00 Test Item Value Reference Range Interpretation Comments Troponin POC (test 0.01 ng/mL 0-0.08 Physician code = 54602685) Notified MARIO (test code = MARIO) <0.08 ng/mL Normal>=0.08 ng/mL Positive for Myocardial injuryNote: The >=0.08 ng/mL cTnI is at the 99th percentile of the non-AMI population. Lab Interpretation Normal (test code = 32815-7) [facility] BMP POC docked jllbou6599-86-31 15:36:00 Test Item Value Reference Range Interpretation Comments Sodium POC (test code = 142 mmol/L 136-145 22389626) Potassium POC (test code 3.9 mmol/L 3.5-5.1 = 27241748) Chloride POC (test code 97 mmol/L 98-107 L = 53304523) TCO2 POC (test code = 34 mmol/L 21-32 H Physic preeti Notified 48892715) Urea Nitrogen POC (test 9 mg/dL 7-18 code = 28048090) Glucose POC (test code = 157 mg/dL 74-106 H 40540094) Hemoglobin POC (test 14.3 g/dL 12-16 code = 90554596) Hematocrit POC (test 42.0 % 37-47 code = 00689374) Lab Interpretation (test Abnormal code = 51665-2) [facility] CREATININE POC docked [id number] 15:35:00 Test Item Value Reference Range Interpretation Comments Creatinine POC (test 0.6 mg/dL 0.6-1.3 Physici an Notified code = 98270636) eGFR If non- Am >90 See_Comment [Aut omated message] (test code = 53397106) The s ystem which generated this result transmit sandy reference range : >=90 mL/min/1.7 3 m2. The reference r will was not used to interpret this result as normal/abnormal . eGFR If Am (test >90 See_Comment [A utomated message] code = 17365924) The system which generated this result transmit sandy reference range : >=90 mL/min/1.7 3 m2. The reference r will was not used to interpret this result as normal/abnormal . Lab Interpretation (test Normal code = 21998-3) [facility] VBG POC docked [id number] 15:35:00 Test Item Value Reference Range Interpretation Comments pH, Ace POC (test code 7.40 7.33-7.43 = 81335499) pCO2,Ace POC (test code 53.3 See_Comment H [Au tomated = 60098909) message] The sy stem which generated this result transmitted reference range : 38 - 50 mmHg. The reference range was not used to interpret this result as normal/abnormal . PO2, Venous POC (BKR) 49 See_Comment L [Auto mated (test code = 58777233) [employer]] The system which generated this result transmitted reference range : 50 - 75 mm Hg. The reference range was not used to interpret this result as normal/abnormal . Ionized Calcium POC 1.15 mmol/L 1.15-1.29 (test code = 08457829) HCO3, Ace POC (test 33 mmol/L 22-26 H code = 55399080) TCO2 POC (test code = 34 mmol/L 21-32 H 03163673) Base Excess Ace POC 6 mmol/L (test code = 14917783) Sample Type (test code IVEN Physi hermes Notified = 36591359) % Sat, Ace POC (test 83 % code = 50835884) Lab Interpretation Abnormal (test code = 49526-8) [place] [address] LEAD [id number] 15:23:0612 LEAD EKG FOR [facility] Test Date: [id number] Name: GRAZYNA GOMEZ Department: 5520Patient ID: [id number] Room: Gender: F All Round Butcher: [id number]: 1975 Requested By: NATHALIE Carrillo Number: [id number] Reading MD: nathan albert MeasurementsIntervals Whiteside Rate: 191 P: UT: 0 QRS: 30QRSD: 97 T: 0QT: 196 QTc: 294 Interpretive StatementsATRIAL FIBRILLATION WI TH RAPID VENTRICULAR RESPONSELOW QRS VOLTAGE IN PRECORDIAL LEADS [QRS DEFLECTION < 1.0 mV IN CHEST LEADS]MODERATE ST DEPRESSION [0.05+ mV ST DEPRESSION]CRITICAL TEST RESULTElectronically Signed On 05-20-2021 15:43:[address] [facility] GLU[facility]SE POC docked [id number] 13:06:00 Test Item Value Reference Range Interpretation Comments Glucose POC (test code = 61397438) 105 mg/dL 74-106 Lab Interpretation (test code = Normal 22168-1) [facility] HospitalUrkkqmIsjhzzyqws1863-39-36 05:55:00 Test Item Value Reference Range Interpretation Comments Phosphorus (test code = 2777-1) 3.3 mg/dL 2.5-5 Lab Interpretation (test code = Normal 53303-7) [facility] HospitalDifferential, Ivzmgv5983-94-15 10:07:00 Test Item Value Reference Range Interpretation Comments Neutrophil (test code = 29649305) 80.0 % 34-70 H Lymphs (test code = 65272343) 14.0 % 20-50 L Monocytes (test code = 46306680) 6.0 % 5-12 Eos (test code = 28385097) 0.0 % 0.7-5 L Basos (test code = 51320213) 0.0 % 0.1-1.2 L Neutrophils (Absolute) (test code = 7.03 K/uL 1.56-6.13 H 50095356) Lymphs (Absolute) (test code = 1.23 K/uL 1.18-3.74 17111993) Monocytes(Absolute) (test code = 0.53 K/uL 0.24-0.36 H 76419902) Eos (Absolute) (test code = 0.00 K/uL 0.04-0.36 L 83901487) Baso (Absolute) (test code = 0.00 K/uL 0.01-0.08 L 75945400) Large Platelets (test code = 2+ None seen A 92510509) Platelet Clumps (test code = Present None seen A 00679139) Hypochromia (test code = 45072177) 3+ None seen A Ovalocyte (test code = 56872169) 2+ None seen A Stomatocyte (test code = 42881793) 2+ None seen A Cells Counted (test code = 59848313) Lab Interpretation (test code = Abnormal 85731-5) [facility] [id number] 06:36:00 Test Item Value Reference Range Interpretation Comments Sodium (test code = 141 mmol/L 319-631 8121-2) Potassium (test code = 3.8 mmol/L 3.5-5.1 2823-3) Chloride (test code = 98 mmol/L 98-107 2075-0) CO2 (test code = 38 mmol/L 21-31 H 59960834) Glucose (test code = 113 mg/dL 70-110 H 24511614) Calcium (test code = 8.2 mg/dL 8.6-10.3 L 02347817) Urea Nitrogen (test 9.0 mg/dL 7-25 code = 93614656) Creatinine (test code = 0.6 mg/dL 0.6-1.2 30747089) Alkaline Phosphatase 38 U/L 34-104 (test code = 47477783) ALT (test code = 11 U/L 7-52 20591412) AST (test code = 12 U/L 13-39 L 15911030) Total Protein (test 6.8 g/dL 6-8.3 code = 2885-2) eGFR If non- Am >90 See_Comment [Aut omated message] (test code = 28312185) The s ystem which generated this result transmit sandy reference range : >=90 mL/min/1.7 3 m2. The reference r will was not used to interpret this result as normal/abnormal . Albumin (test code = 3.1 g/dL 3.7-5.3 L 76583-4) Anion Gap (test code = 5 mmol/L 5-16 27112222) Lab Interpretation Abnormal (test code = 14320-6) [facility] ProperatiBlood Gas, [id number] 04:33:00 Test Item Value Reference Range Interpretation Comments Temperature (test code 37.0 degree C = 28432661) pH, Venous (test code = 7.36 7.33-7.43 41806865) pCO2, Venous (test code 71.3 See_Comment HH [Au tomated = 14964317) message] The sy stem which generated this result transmitted reference range : 38 - 50 mm Hg. The reference range was not used to interpret this result as normal/abnormal . pO2, Venous (test code 54.8 See_Comment [Aut omated = 13038360) message] The sy stem which generated this result transmitted reference range : 50 - 75 mm Hg. The reference range was not used to interpret this result as normal/abnormal . Base Excess, Venous 13.2 mmol/L -2.5-2.5 H (test code = 40402148) HCO3, Venous (test code 39.2 mmol/L 22-26 H = 50710735) % Sat, Venous (test 86.6 % 60-85 H code = 74506037) Lab Interpretation Abnormal (test code = 38886-7) [facility] HospitalHgb/Wfl2114-59-09 22:29:00 Test Item Value Reference Range Interpretation Comments Hemoglobin (test code = 718-7) 7.5 g/dL 12-16 L Hematocrit (test code = 4544-3) 32.0 % 37-47 L Lab Interpretation (test code = Abnormal 96212-3) [facility] HospitalCrossmatch RBC Units, 1 [id number] 12:35:00 Test Item Value Reference Range Interpretation Comments RBC UNITS (test code = compatible 56064809) Unit ABO Type (test code = O 86206272) Unit Rh Type (test code = POS 25553163) Product Code (test code = E0336 20027394) Unit Number (test code = [id number] 25859750) Unit Status (test code = transfused 61823180) ISBT Product Code (test code = T8214Q99 58211) Blood Type (test code = 89535) 5100 Blood Expiration Date (test code = 57911) [facility] HospitalVitamin [id number] 08:32:00 Test Item Value Reference Range Interpretation Comments Vitamin B12 (test code 351 pg/mL See comment Lucila l: 180-914 = 55525297) pg/mLIntermitte nt: 145-180 pg/mLDeficient: <=145.0 pg/mL [facility] HospitalLegionella Antigen, [id number] 08:20:00 Test Item Value Reference Range Interpretation Comments Legionella Ag, Ur (test code = Negative Negative 58773-7) Lab Interpretation (test code = Normal 86157-4) [facility] HospitalStrep Pneumo Ag, [id number] 01:40:00 Test Item Value Reference Range Interpretation Comments S. pneumo Ur Antigen (test code = Negative Negative 13926-2) Lab Interpretation (test code = Normal 08374-6) [facility] HospitalTRANSTHORACIC ECHO (TTE)2021-02-13 13:02:00TRANSTHORACIC ECHO (TTE) Transthoracic Echo Report GRAZYNA GOMEZ Age: 45 Gender:F : 1975 Exam Date: 02/13/2021 08:08 ExamLocation: [facility] Ordering Phys: MARBELLA ALLAN Referring Phys: [id number] Phys: Mee Vincent MD Fellow Phys: Fellow Phys: Acoustical Carpenter:Isma Nunez Reason For Exam: Indications: Obstructive sleep apnea, rule out pulmonary hypertension, Other secondary pulmonary hypertension, Morbid (severe) obesity due to excess calories ICD-9 Codes: I27.2 E66.01 Exam Type: TRANSTHORACIC ECHO (TTE) Procedure CPT: 87330 Addtional CPT: Ht (in): 67 BSA: 3.38 [...] Mass by linear method Index 102 g/m2 [facility] Votzithlbd2588-54-61 06:58:00 Test Item Value Reference Range Interpretation Comments Specimen Expiration (test 02/16/2021 23:59 code = 74231988) ABO/RH (test code = O POS 63131402) Antibody Screen (test code = NEG 53102091) [facility] HospitalABO/RH [id number] 06:57:00 Test Item Value Reference Range Interpretation Comments ABO/RH (test code = 19327533) [facility] Fnranuv8184-56-81 03:07:00 Test Item Value Reference Range Interpretation [...] MARIO (test code = MARIO) Performed at: [address] [place] [address] [id number] Director: Denis Lugo MD, Phone: [phone] Lab Interpretation Abnormal (test code = 42091-6) [facility] HospitalEbvwdoVtegnhfc4533-77-39 05:33:00 Test Item Value Reference Range Interpretation Comments Ferritin (test code = 27193657) <10.0 11-306.8 L Lab Interpretation (test code = Abnormal 41123-6) [facility] HospitalHepatitis C Virus Ab [id number] 05:27:00 Test Item Value Reference Range Interpretation Comments Hepatitis C Virus (HCV) Antibody Negative Negative (test code = 31315-9) Lab Interpretation (test code = Normal 75941-4) [facility] HospitalHIV-1/HIV-2 Routine Vghrhscxe8758-89-07 05:26:00 Test Item Value Reference Range Interpretation Comments HIV Ag/Ab Combo (test code = Negative Negative 63245-4) Lab Interpretation (test code = Normal 63811-5) [facility] HealthU/S ABDOMEN FXPDHRH1079-02-47 19:55:26IMPRESSION:Limited evaluation due to bowel gas and [...] report.Signed By: Francis Thompson MD, 02/11/2021 7:55 PMMult[facility] HospitalOsruunIajiip9225-79-14 18:55:00 Test Item Value Reference Range Interpretation Comments Lipase (test code = 49913216) 24 U/L 11-82 Lab Interpretation (test code = Normal 77601-3) [facility] HospitalLiver Cuuauma4219-81-84 18:55:00 Test Item Value Reference Range Interpretation Comments Bilirubin, Total (test code = 1.5 mg/dL 0.2-1.2 H 2885-2) Alkaline Phosphatase (test code = 44 U/L 34-104 97413159) AST (test code = 20647788) 13 U/L 13-39 Direct Bilirubin (test code = 0.6 mg/dL 0-0.2 H 1968-7) ALT (test code = 83900323) 9 U/L 7-52 Albumin (test code = 13397-4) 3.3 g/dL 3.7-5.3 L Lab Interpretation (test code = Abnormal 61533-0) [facility] HospitalXRAY CHEST 2 [id number] 18:34:30IMPRESSION: Limited exam. Opacified left lung base [...] report.Signed By: Francis Thompson MD, 02/11/2021 6:34 [place] [address] LEAD [id number] 17:19:2512 LEAD EKG FOR [facility] Test Date: 4227-65-76Two Name: GRAZYNA GOMEZ Department: 5520Patient ID: [id number] Room: Gender: F All Round Butcher: [id number]: 1975 Requested By: MATY Lira Number: [id number] Reading MD: Mee Vincent MeasurementsIntervals [place]iteside Rate: 78 P: -15PR: 107 QRS: 38QRSD: 109 T: 68QT: 364 QTc: 417 Interpretive StatementsSINUS RHYTHM WITH SHORT UT INTERVALLOW QRS VOLTAGE IN PRECORDIAL LEADS [QRS DEFLECTION < 1.0 mV IN CHEST LEADS]NONSPECIFIC T-WAVE ABNORMALITYElectronically Signed On 02-11-2021 19:11:55 CDT by Mee [facility]
[2021-07-18] MEDS ORDERED: HYDROCORTISONE 0.5% CREAM 30 GM TOP PRN ×2 (22:58→23:00)
[2021-07-18] MEDS ORDERED: POLYETHYL GLY 3350 17 GM/DOSE PO PRN (23:03)
[2021-07-19 01:52] LABS: Urine Appearance TURBID (Clear); Urine Blood TRACE (Negative); Urine Color DK YELLOW (Yellow); Urine Glucose NEGATIVE (Negative); Urine Protein 1+ (Negative); Urine pH 5.5 (5.0-7.0)
[2021-07-19 02:25] LABS: Urine Bilirubin NEGATIVE (Negative)
[2021-07-19 02:34] LABS: Urine Bacteria LOADED /HPF (<20); Urine RBC <5 /HPF (NONE SEEN)
[2021-07-19 02:35] LABS: Urine Amorphous Sediment 2+ /HPF (NONE SEEN); Urine Mucus 2+ /HPF (NONE SEEN)
[2021-07-19] MEDS: METOPROLOL XL 25 MG TAB PO SCH (05:10)
[2021-07-19 06:29] LABS: Protime INR 2.03
[2021-07-19 06:36] LABS: Albumin 2.8 g/dL (3.4-5.0); BUN Blood Urea Nitrogen 10 mg/dL (7-18); Bicarbonate 38 mmol/L (21-32); Glucose Level 85 mg/dL (74-106); Magnesium 2.1 mg/dL (1.8-2.4); Potassium 3.5 mmol/L (3.5-5.1); Prealbumin 10.4 mg/dL (20-40); Sodium Level 140 mmol/L (136-145)
[2021-07-19 06:39] LABS: Basophils % 0.9 % (0-1.3); RBC Red Blood Cell Count 4.22 M/uL (3.86-4.86)
[2021-07-19 08:04] LABS: White Blood Cell Scan OK (OK)
[2021-07-19 08:05] LABS: Anisocytosis 3+; Blood Morphology Comment NOTED (NOT SEEN); Hypochromasia 2+; Platelet Estimate ADEQ; Poikilocytosis SLIGHT; Stomatocytes 2+; Target Cells FEW
[2021-07-19] MEDS: DOCUSATE NA 100 MG CAP PO SCH (08:25)
[2021-07-19] MEDS: FUROSEMIDE 40 MG TABLET PO SCH ×2 (08:25→17:09)
[2021-07-19] MEDS: acetaZOLAMIDE 250 MG TAB PO SCH ×2 (08:25→19:28)
[2021-07-19] MEDS: AMIODARONE HCL 200 MG TAB PO SCH (08:25)
--- NOTE | 2021-07-19 09:51 | P.RH.PN ---
Estimated Length of Stay: 10 Expected Discharge Date: 07/28/21 Discharge Disposition Plan: Home Family Support: Yes Senior Care Goal: Mobility, Transfers, Self Care Vital Signs: Last Vital Signs Temp 96.7 F L 07/19/21 08:00 Pulse 87 07/19/21 08:25 Resp 16 07/19/21 08:00 BP 113/53 L 07/19/21 08:25 Pulse Ox 92 07/19/21 08:00 Laboratory: Laboratory Last Values WBC 5.40 K/uL (4.3-10.9) 07/19/21 05:52 RBC 4.22 M/uL (3.86-4.86) 07/19/21 05:52 Hgb 9.9 g/dL (12.0-15.0) L 07/19/21 05:52 Hct 34.0 % (36.0-45.0) L 07/19/21 05:52 MCV 80.5 fL (80-100) D 07/19/21 05:52 MCH 23.4 pg (27.0-35.0) L 07/19/21 05:52 MCHC 29.1 g/dL (32.0-36.0) L 07/19/21 05:52 RDW 25.1 % (12.1-15.2) H 07/19/21 05:52 Plt Count 233 K/uL (152-406) 07/19/21 05:52 MPV 9.0 fL (7.6-11.3) 07/19/21 05:52 Neutrophils % 66.1 % (41.7-73.7) 07/19/21 05:52 Lymphocytes % 19.0 % (15.3-44.8) 07/19/21 05:52 Monocytes % 12.5 % (3.3-12.3) H 07/19/21 05:52 Eosinophils % 1.5 % (0-4.4) 07/19/21 05:52 Basophils % 0.9 % (0-1.3) 07/19/21 05:52 Absolute Neutrophils 3.6 K/uL (1.8-8.0) 07/19/21 05:52 Absolute Lymphocytes 1.0 K/uL (0.7-4.9) 07/19/21 05:52 Absolute Monocytes 0.7 K/uL (0.1-1.3) 07/19/21 05:52 Absolute Eosinophils 0.1 K/uL (0-0.5) 07/19/21 05:52 Absolute Basophils 0.0 K/uL (0-0.5) 07/19/21 05:52 Platelet Estimate Adeq 07/19/21 05:52 Hypochromasia 2+ 07/19/21 05:52 Poikilocytosis Slight 07/19/21 05:52 Anisocytosis 3+ 07/19/21 05:52 Microcytosis 2+ 07/19/21 05:52 Target Cells Few 07/19/21 05:52 Stomatocytes 2+ 07/19/21 05:52 Morphology Comment Noted (NOT SEEN) 07/19/21 05:52 PT 23.5 SECONDS (9.5-12.5) H 07/19/21 05:52 INR 2.03 07/19/21 05:52 APTT 30.0 SECONDS (24.3-36.9) 07/19/21 05:52 Sodium 140 mmol/L (136-145) 07/19/21 05:52 Potassium 3.5 mmol/L (3.5-5.1) 07/19/21 05:52 Chloride 101 mmol/L (98-107) 07/19/21 05:52 Carbon Dioxide 38 mmol/L (21-32) H 07/19/21 05:52 BUN 10 mg/dL (7-18) 07/19/21 05:52 Creatinine 0.55 mg/dL (0.55-1.3) 07/19/21 05:52 Estimated GFR > 90 mL/min (=/>90) 07/19/21 05:52 Glucose 85 mg/dL (74-106) 07/19/21 05:52 Calcium 8.7 mg/dL (8.5-10.1) 07/19/21 05:52 Magnesium 2.1 mg/dL (1.8-2.4) 07/19/21 05:52 Albumin 2.8 g/dL (3.4-5.0) L 07/19/21 05:52 Prealbumin 10.4 mg/dL (20-40) L 07/19/21 05:52 Urine Color Dk yellow (Yellow) 07/19/21 01:08 Urine Appearance Turbid (Clear) 07/19/21 01:08 Urine pH 5.5 (5.0-7.0) 07/19/21 01:08 Ur Specific Siren 1.020 (1.005-1.030) 07/19/21 01:08 Glucose (UA)(Auto) Negative (Negative) 07/19/21 01:08 Urine Ketones Negative (Negative) 07/19/21 01:08 Urine Blood Trace (Negative) H 07/19/21 01:08 Urine Nitrite Negative (Negative) 07/19/21 01:08 Urine Bilirubin Negative (Negative) 07/19/21 01:08 Urine Urobilinogen 1.0 mg/dL (0.2-1.0) 07/19/21 01:08 Ur Leukocyte Esterase Trace (Negative) H 07/19/21 01:08 Urine RBC <5 /HPF (NONE SEEN) 07/19/21 01:08 Urine WBC <5 /HPF (<5) 07/19/21 01:08 Ur Squamous Epith Cells <5 /HPF (NONE SEEN) 07/19/21 01:08 Amorphous Sediment 2+ /HPF (NONE SEEN) H 07/19/21 01:08 Urine Bacteria Loaded /HPF (<20) H 07/19/21 01:08 Urine Mucus 2+ /HPF (NONE SEEN) 07/19/21 01:08 Urine Culture Reflexed Not needed 07/19/21 01:08 Urine Total Protein 1+ (Negative) H 07/19/21 01:08 Smear Scan Ok (OK) 07/19/21 05:52 Weight: 478 lb 14.4 oz Wound Present: Yes Negative Pressure Wound Therapy Present: No Physician Update: Labs reviewed and prealbumin is mildly low at 10.4. Will follow-up her oxygenation. She will be evaluated by therapy today. Summary: Patient's care plan and intermission coordinator goals have been reviewed and revised as necessary. Please see the Rehabilitation Signature page for all necessary signatures.
[2021-07-19] MEDS: WARFARIN SODIUM 5 MG TAB PO SCH (17:08)
[2021-07-19] MEDS: JUVEN PACKET PO SCH (19:28)
[2021-07-20] MEDS: METOPROLOL XL 25 MG TAB PO SCH (05:24)
[2021-07-20 07:49] LABS: Protime INR 2.36
[2021-07-20] MEDS: JUVEN PACKET PO SCH ×2 (08:09→20:00)
[2021-07-20] MEDS: acetaZOLAMIDE 250 MG TAB PO SCH ×2 (08:09→20:00)
[2021-07-20] MEDS: ACETAMINOPHEN 325 MG TABLET PO PRN (08:10)
[2021-07-20] MEDS: DOCUSATE NA 100 MG CAP PO SCH (08:11)
[2021-07-20] MEDS: FUROSEMIDE 40 MG TABLET PO SCH ×2 (08:11→16:53)
[2021-07-20] MEDS: AMIODARONE HCL 200 MG TAB PO SCH (08:11)
[2021-07-20] MEDS: WARFARIN SODIUM 5 MG TAB PO SCH (16:53)
[2021-07-20] MEDS: CRANBERRY FRUIT EXTRACT 400 MG CAP PO SCH (20:00)
[2021-07-21] MEDS: METOPROLOL XL 25 MG TAB PO SCH (05:03)
[2021-07-21 06:33] LABS: Protime INR 2.31
[2021-07-21] MEDS: FUROSEMIDE 40 MG TABLET PO SCH ×2 (07:55→17:10)
[2021-07-21] MEDS: CRANBERRY FRUIT EXTRACT 400 MG CAP PO SCH ×2 (07:55→18:51)
[2021-07-21] MEDS: acetaZOLAMIDE 250 MG TAB PO SCH ×2 (07:55→18:51)
[2021-07-21] MEDS: DOCUSATE NA 100 MG CAP PO SCH (07:55)
[2021-07-21] MEDS: AMIODARONE HCL 200 MG TAB PO SCH (07:55)
[2021-07-21] MEDS: JUVEN PACKET PO SCH ×2 (07:56→18:51)
[2021-07-21] MEDS: ONDANSETRON 4 MG (ODT) TAB PO PRN (12:34)
[2021-07-21] MEDS: WARFARIN SODIUM 5 MG TAB PO SCH (17:10)
[2021-07-21] MEDS: DOCUSATE NA/SENNA CONC 1 TAB PO PRN (18:51)
[2021-07-21] MEDS: ACETAMINOPHEN 325 MG TABLET PO PRN (19:07)
[2021-07-22] MEDS: METOPROLOL XL 25 MG TAB PO SCH ×2 (05:01→19:33)
[2021-07-22 05:03] LABS: Protime INR 1.99
[2021-07-22] MEDS: DOCUSATE NA 100 MG CAP PO SCH ×2 (08:00→08:54)
[2021-07-22] MEDS: JUVEN PACKET PO SCH ×2 (08:00→19:31)
[2021-07-22] MEDS: CRANBERRY FRUIT EXTRACT 400 MG CAP PO SCH ×2 (08:54→19:32)
[2021-07-22] MEDS: AMIODARONE HCL 200 MG TAB PO SCH (08:54)
[2021-07-22] MEDS: acetaZOLAMIDE 250 MG TAB PO SCH ×2 (08:54→19:33)
[2021-07-22] MEDS: FUROSEMIDE 40 MG TABLET PO SCH ×2 (08:54→17:09)
[2021-07-22] MEDS: LIDOCAINE 4% PATCH TOP SCH (14:03)
[2021-07-22] MEDS: WARFARIN SODIUM 5 MG TAB PO SCH (17:09)
[2021-07-23 05:39] LABS: Protime INR 2.38
[2021-07-23] MEDS: JUVEN PACKET PO SCH ×2 (08:00→19:39)
[2021-07-23] MEDS: LIDOCAINE 4% PATCH TOP SCH (08:40)
[2021-07-23] MEDS: acetaZOLAMIDE 250 MG TAB PO SCH ×2 (08:41→19:39)
[2021-07-23] MEDS: CRANBERRY FRUIT EXTRACT 400 MG CAP PO SCH ×2 (08:41→19:39)
[2021-07-23] MEDS: DOCUSATE NA 100 MG CAP PO SCH (08:41)
[2021-07-23] MEDS: METOPROLOL XL 25 MG TAB PO SCH ×3 (08:41→19:40)
[2021-07-23] MEDS: FUROSEMIDE 40 MG TABLET PO SCH ×3 (08:42→17:00)
[2021-07-23] MEDS: AMIODARONE HCL 200 MG TAB PO SCH (08:42)
[2021-07-23 10:19] LABS: Absolute Lymphocytes (CBC) 0.8 K/uL (0.7-4.9); Basophils % 0.7 % (0-1.3); Hematocrit 35.1 % (36.0-45.0); Lymphocytes % 14.6 % (15.3-44.8); MPV 8.6 fL (7.6-11.3); RBC Red Blood Cell Count 4.42 M/uL (3.86-4.86)
[2021-07-23 10:30] LABS: BUN Blood Urea Nitrogen 7 mg/dL (7-18); Bicarbonate 38 mmol/L (21-32); Glucose Level 109 mg/dL (74-106); Potassium 3.3 mmol/L (3.5-5.1); Sodium Level 139 mmol/L (136-145)
[2021-07-23] MEDS ORDERED: POTASSIUM CL SA 10 MEQ TAB PO ONE (11:21)
[2021-07-23] MEDS: ACETAMINOPHEN 325 MG TABLET PO PRN (12:08)
[2021-07-23] MEDS: WARFARIN SODIUM 5 MG TAB PO SCH (17:19)
[2021-07-23] MEDS: NYSTATIN PWDR 100000 UNIT/GM TOP SCH (19:38)
[2021-07-23] MEDS: POTASSIUM CL SA 10 MEQ TAB PO SCH (19:39)
[2021-07-23] MEDS: DOCUSATE NA/SENNA CONC 1 TAB PO PRN (19:39)
[2021-07-23] MEDS: MAGNESIUM OXIDE 400 MG TAB PO SCH (19:40)
[2021-07-23] MEDS ORDERED: BISACODYL 10 MG RECTAL SUPP PR PRN (22:37)
[2021-07-24 05:30] LABS: Protime INR 2.73
[2021-07-24] MEDS: NYSTATIN PWDR 100000 UNIT/GM TOP SCH ×2 (07:55→19:10)
[2021-07-24] MEDS: LIDOCAINE 4% PATCH TOP SCH (07:55)
[2021-07-24] MEDS: MAGNESIUM OXIDE 400 MG TAB PO SCH ×2 (07:56→19:07)
[2021-07-24] MEDS: FUROSEMIDE 40 MG TABLET PO SCH ×2 (07:56→17:17)
[2021-07-24] MEDS: acetaZOLAMIDE 250 MG TAB PO SCH ×2 (07:56→19:07)
[2021-07-24] MEDS: DOCUSATE NA 100 MG CAP PO SCH (07:56)
[2021-07-24] MEDS: AMIODARONE HCL 200 MG TAB PO SCH (07:56)
[2021-07-24] MEDS: POTASSIUM CL SA 10 MEQ TAB PO SCH ×2 (07:57→19:08)
[2021-07-24] MEDS: CRANBERRY FRUIT EXTRACT 400 MG CAP PO SCH ×2 (07:57→19:06)
[2021-07-24] MEDS: METOPROLOL XL 25 MG TAB PO SCH ×2 (07:57→19:09)
[2021-07-24] MEDS: JUVEN PACKET PO SCH ×2 (07:58→19:07)
[2021-07-24] MEDS: ACETAMINOPHEN 325 MG TABLET PO PRN ×2 (08:04→19:06)
[2021-07-24] MEDS: WARFARIN SODIUM 5 MG TAB PO SCH (17:17)
[2021-07-24] MEDS: DOCUSATE NA/SENNA CONC 1 TAB PO PRN (19:06)
[2021-07-25 04:48] LABS: Absolute Lymphocytes (CBC) 0.9 K/uL (0.7-4.9); Basophils % 0.7 % (0-1.3); Hematocrit 32.5 % (36.0-45.0); Lymphocytes % 21.2 % (15.3-44.8); MPV 8.6 fL (7.6-11.3); Protime INR 2.9; RBC Red Blood Cell Count 4.12 M/uL (3.86-4.86)
[2021-07-25 05:12] LABS: Albumin 2.7 g/dL (3.4-5.0); BUN Blood Urea Nitrogen 7 mg/dL (7-18); Bicarbonate 39 mmol/L (21-32); Glucose Level 92 mg/dL (74-106); Magnesium 2.1 mg/dL (1.8-2.4); Potassium 3.1 mmol/L (3.5-5.1); Prealbumin 8.1 mg/dL (20-40); Sodium Level 142 mmol/L (136-145)
[2021-07-25] MEDS: LIDOCAINE 4% PATCH TOP SCH (07:53)
[2021-07-25] MEDS: NYSTATIN PWDR 100000 UNIT/GM TOP SCH ×2 (07:55→19:20)
[2021-07-25] MEDS: acetaZOLAMIDE 250 MG TAB PO SCH ×3 (08:00→19:19)
[2021-07-25] MEDS: POTASSIUM CL SA 10 MEQ TAB PO SCH ×3 (08:00→19:19)
[2021-07-25] MEDS: MAGNESIUM OXIDE 400 MG TAB PO SCH ×3 (08:00→19:20)
[2021-07-25] MEDS: JUVEN PACKET PO SCH ×2 (08:00→19:19)
[2021-07-25] MEDS: CRANBERRY FRUIT EXTRACT 400 MG CAP PO SCH ×3 (08:00→19:19)
[2021-07-25] MEDS: DOCUSATE NA 100 MG CAP PO SCH ×2 (08:00→09:15)
[2021-07-25] MEDS: METOPROLOL XL 25 MG TAB PO SCH ×2 (08:26→19:20)
[2021-07-25] MEDS: AMIODARONE HCL 200 MG TAB PO SCH (08:26)
[2021-07-25] MEDS: FUROSEMIDE 40 MG TABLET PO SCH ×3 (08:31→17:26)
[2021-07-25] MEDS: ACETAMINOPHEN 325 MG TABLET PO PRN ×2 (09:14→19:22)
[2021-07-25] MEDS: ONDANSETRON 4 MG (ODT) TAB PO PRN (09:48)
[2021-07-25] MEDS ORDERED: LIDOCAINE VISCOUS 2% SOLN 15 ML UDC ONE (11:09)
[2021-07-25] MEDS ORDERED: SILVER NITRATE 1 APPL TOP ONE (11:10)
--- NOTE | 2021-07-25 11:45 | CON ---
Date of Consultation: 07/25/2021 Reason For Consultation: Left buttock wound. History Of Present Illness: The patient is a 46-year-old female, who was admitted to the hospital [facility] in June 24 with respiratory failure and AFib. She was hypercapnic and she was intubated, and aft er that, she took a long recovery and now she is on the rehab floor requiring physical therapy and re habilitation. On evaluation on admission to the rehab, she was found to have a left buttock wound an d I was asked to evaluate. There is no fever or chills. No purulent discharge. No sore throat, run ny nose, cough, headaches, or dizziness. No chest pain. No fever or chills. Review of Systems: Otherwise unremarkable. Past Medical History: Significant for morbid obesity. Also significant for hyperlipidemia, hyperten madina, diabetes, congestive heart failure. Past Surgical History: Negative. Allergies: INCLUDE PENICILLIN. Social History: The patient does not smoke or drink. Family History: Noncontributory. Physical Examination: Vital Signs: Stable, afebrile. General: Awake, alert. Head and Neck: No masses. Chest: Clear. Heart: S1, S2. Abdomen: Soft. Extremities: Neurovascularly intact. Neurologic: Nonfocal. Left buttocks, there is a 5.6 x 8.9 x 0.6 cm, stage III wound with moderate a mount of fibrin. Necrotic tissue is present in the edges. There is some vignesh-wound erythema, but no warmth. The wound requires debridement. Procedure Note: Under clean conditions, scissors, forceps and curette were used to debride the entir e wound as much free fibrin as we could and necrotic tissue as we could. The patient is on blood thi nners and therefore, care was taken to avoid that. There was some bleeding noted and this was easily controlled with silver nitrate and a Santyl dressing was applied. Assessment: Left buttock wound. Recommendations: Nutritional optimization, vitamins as ordered, offloading, air mattress, Santyl erica ssing. [facility] upon discharge. /MODL Voice ID: [id number] Report ID: [id number]
[2021-07-25] MEDS ORDERED: POTASSIUM CL SA 10 MEQ TAB PO ONE (14:00)
[2021-07-25] MEDS: WARFARIN SODIUM 5 MG TAB PO SCH (17:25)
--- NOTE | 2021-07-25 17:30 | R.PN ---
PROGRESS NOTES ENCOUNTER DATE AND TIME: 07/25/2021 18:24 (EDT) NAME GRAZYNA GOMEZ DATE OF : 1975 DATE OF ADMISSION: 07/19/2021 14:44 (EDT) CHF Exacerbation, A-Flutter with RVR, resp failureCHIEF COMPLAINT: Debility, CHF exacerbation, extreme obesity. SUBJECTIVE: Pt denied any depression. Pt denied any Shortness of Breath. Hgb 9.7, WBC 4.3, prealbumin 8.1, K 3.1, Increase K+ to 20 meq bid, UA loaded with bacteria, trace es terase but < 10,000 cfu. INR 2.90. On coumadin 10 mg daily. Self-propelled total of 250'' with contact guard assistance. Ambulated total of 43' with rolling walker and CGA. Ambulated 100, 45 and 25 feet with rolling walker and contact guard assistance. Self-propelled 260 fe et x 2 with modified independence. VITAL SIGNS Temperature: 96.8 F SBP/DBP: 114/58 Pulse: 74 Resp: 16 MEDICATION ALLERGIES: No Known Drug Allergies (NKDA) ENVIRONMENTAL ALLERGIES: - Substance Allergies None Known - Other Allergies None Known NURSING: - Shower allowing shower PRECAUTIONS: - Fall Precaution SAFTY AND FALL ACTIVITIES OOB only with supervision THERAPIES: - Dietary and Nutrition Adequate Nutrition. Nutritional Education. Nutritional Supplements. - Occupational Therapy Cognitive Retraining. Visual Perceptual Training. - Speech Therapy Cognitive Training. Expressive Language Skills. Memory Strategies. Receptive Language Skills. Speech Intelligibility Training. PHYSICAL EXAM - Gen Alert and awake Lying in bed No apparent distress Oriented to: person, time, and place - Skin Stage II on left buttocks. - Eyes No abnormalities - ENMT No abnormalities - Neck No abnormalities No cervical adenopathy - CVS RRR - Chest Mildly decreased breath sounds bilaterally. - Resp No wheezing - Abd Soft - GI Non distended Deferred - No abnormalities - Ext Mild bilateral lower extremity edema. - MSK 4/5 weakness in both lower extremities. - Neuro No focal deficits - Psych No abnormalities ASSESSMENT: Pt. is a 46 yo Right-handed female.On 07/11/2021 she was admitted to [facility] with diagnosis CHF Exacerbation, A-Flutter with RVR, resp failure.Her impairment category is Cardiac 09 - Cardiac Disorders ().Pre-morbidly, Pt. was independent/mod-I in Locomotion, Social Cognition , Safety Awareness, Transfers Control, and Balance; and she had good Sphincter Control, Self-Care, Co mmunication, and Endurance.Currently, she has deficits of Locomotion, Safety Awareness, Balance, Sphi ncter Control, and Endurance.Pt. is now referred to [facility] for acute in-pa tient rehabilitation in order to maximize patient's functional independence in activities of daily li ving, strength, ROM, and mobility.- Rehab Goal Patient has realistic goal of being discharged at assistance level 7-Ind to reside at Home with Fami ly/Relatives. MDM/PLAN: - Physical Therapy Gait dysfunction - to improve, our physical therapists will perform initial evaluation of pt's statu s upon admission and devise an individualized program for Gait Training, and Wheel Chair mobility Need for home safety evaluation - to improve, our physical therapists will perform initial evaluatio n of pt's status upon admission and devise an individualized program for Home Evaluation Need in caregiver upon discharge - to improve, our physical therapists will perform initial evaluati on of pt's status upon admission and devise an individualized program for Caregiver Training New precaution - to improve, our physical therapists will perform initial evaluation of pt's status upon admission and devise an individualized program for Patient precaution education Edema - to improve, our physical therapists will perform initial evaluation of pt's status upon admi ssion and devise an individualized program for Elevation Training, and Lymphedema Therapy Poor balance - to improve, our physical therapists will perform initial evaluation of pt's status up on admission and devise an individualized program for Balance Training Poor endurance - to improve, our physical therapists will perform initial evaluation of pt's status upon admission and devise an individualized program for Endurance Training Weakness - to improve, our physical therapists will perform initial evaluation of pt's status upon a dmission and devise an individualized program for Aquatic Therapy, Neuromuscular Reeducation, and Str engthening Achieving independence - to improve, our physical therapists will perform initial evaluation of pt's status upon admission and devise an individualized program for Community Reintegration Activities - Occupational Therapy Need for home health care physician - to improve, our occupation therapists will perform initial evaluation of pt's status upon admission and devise an individualized program for Caregiver Training Weakness - to improve, our occupation therapists will perform initial evaluation of pt's status upon admission and devise an individualized program for Aquatic Therapy, Balance, Endurance, UE ROM, and UE strengthening - Other See attached MAR (Medication Administration Record) - Diet Type Continue Regular - Diet - Liquid Texture Continue Regular - Tube Feed Continue N/A - Fall Precaution SAFTY AND FALL - Diet - Solid Texture Continue Regular - Shower allowing shower FUNCTIONAL STATUS: UPDATED AT WEEKLY TEAM CONFERENCE - Bladder Same accident frequency: 7-Ind - No accidents in the past 7 days - Bowel Same accident frequency: 7-Ind - No accidents in the past 7 days - Walking Same score based on distance walked: 0(N/A) - Wheelchair Same score based on distance traveled: 0(N/A) FUNCTIONAL STATUS: - Self-Care A. Eating Ind B. Grooming Yasmin C. Bathing maxA D. Dressing - Upper modA E. Dressing - Lower maxA F. Toileting modA - Sphincter Control G. Bladder control Ashok H. Bowel control Ashok - Transfers Control I. Bed/Chair/Wheelchair maxA J. Toilet maxA K. Tub/Shower maxA - Locomotion L. Walk/Wheelchair (B) modA M. Stairs ADNO - Communication N. Comprehension (B) Ashok O. Expression (B) Ashok - Social Cognition P. Social Interaction Ind Q. Problem Solving Ashok R. Memory Ind - Endurance Poor - Balance Fair - Safety Awareness Fair QI SCORES: - Self-Care A. Eating 05-Setup or clean-up assistance B. Oral hygiene 02-Substantial/maximal assistance C. Toileting hygiene 01-Dependent E. Shower/bathe self 01-Dependent F. Upper body dressing 03-Partial/moderate assistance G. Lower body dressing 02-Substantial/maximal assistance H. Putting on/taking off footwear 88-Not attempted due to medical condition or safety concerns - Mobility A. Roll left and right 02-Substantial/maximal assistance B. Sit to lying 02-Substantial/maximal assistance C. Lying to sitting on side of bed 02-Substantial/maximal assistance D. Sit to stand 02-Substantial/maximal assistance E. Chair/udw-[id number] transfer 02-Substantial/maximal assistance F. Toilet transfer 02-Substantial/maximal assistance G. Car transfer 88-Not attempted due to medical condition or safety concerns I. Walk 10 feet 88-Not attempted due to medical condition or safety concerns J. Walk 50 feet with two turns 88-Not attempted due to medical condition or safety concerns K. Walk 150 feet 88-Not attempted due to medical condition or safety concerns L. Walking 10 feet on uneven surfaces 88-Not attempted due to medical condition or safety concerns M. 1 step (curb) 88-Not attempted due to medical condition or safety concerns N. 4 steps 88-Not attempted due to medical condition or safety concerns O. 12 steps 88-Not attempted due to medical condition or safety concerns P. Picking up object 88-Not attempted due to medical condition or safety concerns R. Wheel 50 feet with two turns 88-Not attempted due to medical condition or safety concerns S. Wheel 150 feet 88-Not attempted due to medical condition or safety concerns - Bladder and Bowel Bladder continence Bowel continence - Endurance Fair - Balance Fair - Safety Awareness Fair [facility] DEFICITS: Self-Care, Mobility, Endurance, Balance, and Safety Awareness SIGNATURE PANEL: (CDT)
[2021-07-25] MEDS: MELATONIN 5 MG TABLET PO PRN (19:22)
[2021-07-26 06:17] LABS: Protime INR 3.21
[2021-07-26] MEDS: ZINC SULFATE 220 MG CAP PO SCH (07:32)
[2021-07-26] MEDS: ASCORBIC ACID 500 MG TABLET PO SCH (07:32)
[2021-07-26] MEDS: CRANBERRY FRUIT EXTRACT 400 MG CAP PO SCH ×2 (07:33→19:30)
[2021-07-26] MEDS: METOPROLOL XL 25 MG TAB PO SCH ×2 (07:33→19:34)
[2021-07-26] MEDS: AMIODARONE HCL 200 MG TAB PO SCH (07:33)
[2021-07-26] MEDS: MAGNESIUM OXIDE 400 MG TAB PO SCH ×2 (07:34→19:31)
[2021-07-26] MEDS: DOCUSATE NA 100 MG CAP PO SCH (07:34)
[2021-07-26] MEDS: POTASSIUM CL SA 10 MEQ TAB PO SCH ×2 (07:34→19:30)
[2021-07-26] MEDS: acetaZOLAMIDE 250 MG TAB PO SCH ×2 (07:34→19:30)
[2021-07-26] MEDS: LIDOCAINE 4% PATCH TOP SCH (07:35)
[2021-07-26] MEDS: JUVEN PACKET PO SCH ×2 (07:35→19:30)
[2021-07-26] MEDS: COLLAGENASE 30 GM OINTMENT TOP SCH (07:41)
[2021-07-26] MEDS: FUROSEMIDE 40 MG TABLET PO SCH ×2 (07:42→17:22)
[2021-07-26] MEDS: NYSTATIN PWDR 100000 UNIT/GM TOP SCH ×2 (08:00→19:31)
[2021-07-26] MEDS: ACETAMINOPHEN 325 MG TABLET PO PRN (08:21)
--- NOTE | 2021-07-26 09:45 | P.RH.PN ---
Estimated Length of Stay: 14 Expected Discharge Date: 07/31/21 Discharge Disposition Plan: Home Family Support: Yes Long-Term Goal: Mobility, Transfers, Self Care Vital Signs: Last Vital Signs Temp 98 F 07/26/21 07:23 Pulse 73 07/26/21 07:42 Resp 18 07/26/21 07:23 BP 101/66 07/26/21 07:42 Pulse Ox 96 07/26/21 07:23 Laboratory: Laboratory Last Values WBC 4.30 K/uL (4.3-10.9) D 07/25/21 04:28 RBC 4.12 M/uL (3.86-4.86) 07/25/21 04:28 Hgb 9.7 g/dL (12.0-15.0) L 07/25/21 04:28 Hct 32.5 % (36.0-45.0) L 07/25/21 04:28 MCV 78.8 fL (80-100) L 07/25/21 04:28 MCH 23.6 pg (27.0-35.0) L 07/25/21 04:28 MCHC 29.9 g/dL (32.0-36.0) L 07/25/21 04:28 RDW 24.3 % (12.1-15.2) H 07/25/21 04:28 Plt Count 249 K/uL (152-406) 07/25/21 04:28 MPV 8.6 fL (7.6-11.3) 07/25/21 04:28 Neutrophils % 65.7 % (41.7-73.7) 07/25/21 04:28 Lymphocytes % 21.2 % (15.3-44.8) 07/25/21 04:28 Monocytes % 10.4 % (3.3-12.3) 07/25/21 04:28 Eosinophils % 2.0 % (0-4.4) 07/25/21 04:28 Basophils % 0.7 % (0-1.3) 07/25/21 04:28 Absolute Neutrophils 2.8 K/uL (1.8-8.0) 07/25/21 04:28 Absolute Lymphocytes 0.9 K/uL (0.7-4.9) 07/25/21 04:28 Absolute Monocytes 0.4 K/uL (0.1-1.3) 07/25/21 04:28 Absolute Eosinophils 0.1 K/uL (0-0.5) 07/25/21 04:28 Absolute Basophils 0.0 K/uL (0-0.5) 07/25/21 04:28 Platelet Estimate Adeq 07/19/21 05:52 Hypochromasia 2+ 07/19/21 05:52 Poikilocytosis Slight 07/19/21 05:52 Anisocytosis 3+ 07/19/21 05:52 Microcytosis 2+ 07/19/21 05:52 Target Cells Few 07/19/21 05:52 Stomatocytes 2+ 07/19/21 05:52 Morphology Comment Noted (NOT SEEN) 07/19/21 05:52 PT 37.4 SECONDS (9.5-12.5) H 07/26/21 05:44 INR 3.21 07/26/21 05:44 APTT 30.0 SECONDS (24.3-36.9) 07/19/21 05:52 Sodium 142 mmol/L (136-145) 07/25/21 04:28 Potassium 3.1 mmol/L (3.5-5.1) L 07/25/21 04:28 Chloride 101 mmol/L (98-107) 07/25/21 04:28 Carbon Dioxide 39 mmol/L (21-32) H 07/25/21 04:28 BUN 7 mg/dL (7-18) 07/25/21 04:28 Creatinine 0.46 mg/dL (0.55-1.3) L 07/25/21 04:28 Estimated GFR > 90 mL/min (=/>90) 07/25/21 04:28 Glucose 92 mg/dL (74-106) 07/25/21 04:28 Calcium 8.6 mg/dL (8.5-10.1) 07/25/21 04:28 Magnesium 2.1 mg/dL (1.8-2.4) 07/25/21 04:28 Albumin 2.7 g/dL (3.4-5.0) L 07/25/21 04:28 Prealbumin 8.1 mg/dL (20-40) L 07/25/21 04:28 Urine Color Dk yellow (Yellow) 07/19/21 01:08 Urine Appearance Turbid (Clear) 07/19/21 01:08 Urine pH 5.5 (5.0-7.0) 07/19/21 01:08 Ur Specific [place] 1.020 (1.005-1.030) 07/19/21 01:08 Glucose (UA)(Auto) Negative (Negative) 07/19/21 01:08 Urine Ketones Negative (Negative) 07/19/21 01:08 Urine Blood Trace (Negative) H 07/19/21 01:08 Urine Nitrite Negative (Negative) 07/19/21 01:08 Urine Bilirubin Negative (Negative) 07/19/21 01:08 Urine Urobilinogen 1.0 mg/dL (0.2-1.0) 07/19/21 01:08 Ur Leukocyte Esterase Trace (Negative) H 07/19/21 01:08 Urine RBC <5 /HPF (NONE SEEN) 07/19/21 01:08 Urine WBC <5 /HPF (<5) 07/19/21 01:08 Ur Squamous Epith Cells <5 /HPF (NONE SEEN) 07/19/21 01:08 Amorphous Sediment 2+ /HPF (NONE SEEN) H 07/19/21 01:08 Urine Bacteria Loaded /HPF (<20) H 07/19/21 01:08 Urine Mucus 2+ /HPF (NONE SEEN) 07/19/21 01:08 Urine Culture Reflexed Not needed 07/19/21 01:08 Urine Total Protein 1+ (Negative) H 07/19/21 01:08 Smear Scan Ok (OK) 07/19/21 05:52 Weight: 482 lb 8 oz Wound Present: Yes Closed Surgical Incision Present: No Negative Pressure Wound Therapy Present: No Physician Update: Her K is low at 3.1 and is being replaced at 20 meq bid. Her prealbumin is low at 8.1. She will start ensure plus. She is walking 8' to 10' with a rolling walker and supervision. He dependent wound has been debrided and has daily dressing changes. INR is 3.21. Will hold coumadin and restart at 9 mg daily is INR is lower than 3. Summary: Patient's care plan and residential goals have been reviewed and revised as necessary. Please see the Rehabilitation Signature page for all necessary signatures.
[2021-07-26] MEDS: HYDROCODONE/APAP 5/325 MG TAB PO PRN (13:07)
[2021-07-26] MEDS ORDERED: WARFARIN SODIUM 4 MG TAB PO SCH (17:00)
[2021-07-26] MEDS: ENSURE HIGH PROTEIN 237 ML CAN PO SCH (19:34)
[2021-07-26] MEDS: DOCUSATE NA/SENNA CONC 1 TAB PO PRN (19:35)
[2021-07-26] MEDS: MELATONIN 5 MG TABLET PO PRN (19:35)
[2021-07-26] MEDS ORDERED: ENSURE ENLIVE 237 ML CAN PO SCH (20:00)
[2021-07-27 06:25] LABS: BUN Blood Urea Nitrogen 7 mg/dL (7-18); Bicarbonate 40 mmol/L (21-32); Glucose Level 97 mg/dL (74-106); Potassium 3.6 mmol/L (3.5-5.1); Sodium Level 143 mmol/L (136-145)
[2021-07-27] MEDS: JUVEN PACKET PO SCH ×3 (08:00→21:03)
[2021-07-27] MEDS: NYSTATIN PWDR 100000 UNIT/GM TOP SCH ×2 (08:00→19:29)
[2021-07-27] MEDS: HYDROCODONE/APAP 5/325 MG TAB PO PRN (08:34)
[2021-07-27] MEDS: LIDOCAINE 4% PATCH TOP SCH (08:36)
[2021-07-27] MEDS: CRANBERRY FRUIT EXTRACT 400 MG CAP PO SCH ×2 (08:36→19:28)
[2021-07-27] MEDS: AMIODARONE HCL 200 MG TAB PO SCH (08:37)
[2021-07-27] MEDS: ASCORBIC ACID 500 MG TABLET PO SCH (08:37)
[2021-07-27] MEDS: ZINC SULFATE 220 MG CAP PO SCH (08:37)
[2021-07-27] MEDS: DOCUSATE NA 100 MG CAP PO SCH (08:38)
[2021-07-27] MEDS: FUROSEMIDE 40 MG TABLET PO SCH ×2 (08:38→17:27)
[2021-07-27] MEDS: METOPROLOL XL 25 MG TAB PO SCH ×2 (08:38→19:30)
[2021-07-27] MEDS: acetaZOLAMIDE 250 MG TAB PO SCH ×2 (08:38→19:28)
[2021-07-27] MEDS: POTASSIUM CL SA 10 MEQ TAB PO SCH ×2 (08:39→19:29)
[2021-07-27] MEDS: MAGNESIUM OXIDE 400 MG TAB PO SCH ×2 (08:50→19:29)
[2021-07-27] MEDS: COLLAGENASE 30 GM OINTMENT TOP SCH (08:51)
[2021-07-27] MEDS: ENSURE HIGH PROTEIN 237 ML CAN PO SCH ×3 (08:58→21:03)
[2021-07-27] MEDS: ONDANSETRON 4 MG (ODT) TAB PO PRN (11:15)
[2021-07-27] MEDS: WARFARIN SODIUM 5 MG TAB PO SCH (17:26)
[2021-07-27] MEDS: WARFARIN SODIUM 4 MG TAB PO SCH (17:26)
[2021-07-27] MEDS: MELATONIN 5 MG TABLET PO PRN (21:26)
[2021-07-28 05:49] LABS: Protime INR 2.61
[2021-07-28] MEDS: NYSTATIN PWDR 100000 UNIT/GM TOP SCH ×2 (08:00→20:00)
[2021-07-28] MEDS: CRANBERRY FRUIT EXTRACT 400 MG CAP PO SCH ×2 (08:37→19:32)
[2021-07-28] MEDS: LIDOCAINE 4% PATCH TOP SCH (08:37)
[2021-07-28] MEDS: DOCUSATE NA 100 MG CAP PO SCH (08:38)
[2021-07-28] MEDS: acetaZOLAMIDE 250 MG TAB PO SCH ×2 (08:38→19:32)
[2021-07-28] MEDS: ZINC SULFATE 220 MG CAP PO SCH (08:38)
[2021-07-28] MEDS: POTASSIUM CL SA 10 MEQ TAB PO SCH ×2 (08:38→19:32)
[2021-07-28] MEDS: ASCORBIC ACID 500 MG TABLET PO SCH (08:38)
[2021-07-28] MEDS: FUROSEMIDE 40 MG TABLET PO SCH ×2 (08:39→17:00)
[2021-07-28] MEDS: AMIODARONE HCL 200 MG TAB PO SCH (08:39)
[2021-07-28] MEDS: METOPROLOL XL 25 MG TAB PO SCH ×2 (08:39→19:32)
[2021-07-28] MEDS: MAGNESIUM OXIDE 400 MG TAB PO SCH ×2 (08:56→19:33)
[2021-07-28] MEDS: JUVEN PACKET PO SCH ×2 (08:56→19:33)
[2021-07-28] MEDS: COLLAGENASE 30 GM OINTMENT TOP SCH (08:58)
[2021-07-28] MEDS: ENSURE HIGH PROTEIN 237 ML CAN PO SCH ×3 (08:59→19:34)
[2021-07-28] MEDS: ACETAMINOPHEN 325 MG TABLET PO PRN (15:15)
[2021-07-28] MEDS: WARFARIN SODIUM 4 MG TAB PO SCH (16:57)
[2021-07-28] MEDS: WARFARIN SODIUM 5 MG TAB PO SCH (16:57)
[2021-07-28] MEDS: MELATONIN 5 MG TABLET PO PRN (19:32)
[2021-07-29 04:59] LABS: Basophils % 0.7 % (0-1.3); Hematocrit 34.8 % (36.0-45.0); Lymphocytes % 25.5 % (15.3-44.8); MPV 8.7 fL (7.6-11.3); Protime INR 2.52; RBC Red Blood Cell Count 4.35 M/uL (3.86-4.86)
[2021-07-29 05:08] LABS: BUN Blood Urea Nitrogen 7 mg/dL (7-18); Bicarbonate 37 mmol/L (21-32); Glucose Level 94 mg/dL (74-106); Potassium 3.4 mmol/L (3.5-5.1); Sodium Level 141 mmol/L (136-145)
[2021-07-29] MEDS: JUVEN PACKET PO SCH ×2 (08:00→20:00)
[2021-07-29] MEDS: ENSURE HIGH PROTEIN 237 ML CAN PO SCH ×3 (08:14→20:02)
[2021-07-29] MEDS: POTASSIUM CL SA 10 MEQ TAB PO SCH ×2 (08:14→20:00)
[2021-07-29] MEDS: CRANBERRY FRUIT EXTRACT 400 MG CAP PO SCH ×2 (08:14→20:00)
[2021-07-29] MEDS: FUROSEMIDE 40 MG TABLET PO SCH ×2 (08:14→17:10)
[2021-07-29] MEDS: AMIODARONE HCL 200 MG TAB PO SCH (08:15)
[2021-07-29] MEDS: acetaZOLAMIDE 250 MG TAB PO SCH ×2 (08:15→20:00)
[2021-07-29] MEDS: METOPROLOL XL 25 MG TAB PO SCH ×2 (08:15→20:00)
[2021-07-29] MEDS: DOCUSATE NA 100 MG CAP PO SCH (08:15)
[2021-07-29] MEDS: ASCORBIC ACID 500 MG TABLET PO SCH (08:15)
[2021-07-29] MEDS: MAGNESIUM OXIDE 400 MG TAB PO SCH ×2 (08:16→20:01)
[2021-07-29] MEDS: ACETAMINOPHEN 325 MG TABLET PO PRN (08:16)
[2021-07-29] MEDS: ZINC SULFATE 220 MG CAP PO SCH (08:16)
[2021-07-29] MEDS: LIDOCAINE 4% PATCH TOP SCH (10:42)
[2021-07-29] MEDS: NYSTATIN PWDR 100000 UNIT/GM TOP SCH ×2 (10:43→20:00)
[2021-07-29] MEDS: COLLAGENASE 30 GM OINTMENT TOP SCH (10:43)
[2021-07-29] MEDS: methocarbamoL 500 MG TAB PO PRN (12:35)
[2021-07-29] MEDS: WARFARIN SODIUM 4 MG TAB PO SCH (17:09)
[2021-07-29] MEDS: WARFARIN SODIUM 5 MG TAB PO SCH (17:09)
--- NOTE | 2021-07-29 18:46 | R.PN ---
PROGRESS NOTES ENCOUNTER DATE AND TIME: 07/29/2021 18:42 (CDT) NAME GRAZYNA GOMEZ DATE OF : 1975 DATE OF ADMISSION: 07/19/2021 13:44 (CDT) CHF Exacerbation, A-Flutter with RVR, resp failureCHIEF COMPLAINT: Debility, CHF exacerbation, extreme obesity. SUBJECTIVE: Pt denied any depression. Pt denied any Shortness of Breath. Hgb 9.7, WBC 4.3, prealbumin 8.1, K 3.1, Increase K+ to 20 meq bid, UA loaded with bacteria, trace es terase but < 10,000 cfu. INR 2.90. On coumadin 10 mg daily. Ambulated total of 74' with rollator and CGA. Self-propelled 44' with contact guard assistance. VITAL SIGNS Temperature: 97.1 F SBP/DBP: 111/64 Pulse: 73 Resp: 16 MEDICATION ALLERGIES: No Known Drug Allergies (NKDA) ENVIRONMENTAL ALLERGIES: - Substance Allergies None Known - Other Allergies None Known NURSING: - Shower allowing shower PRECAUTIONS: - Fall Precaution SAFTY AND FALL ACTIVITIES OOB only with supervision THERAPIES: - Dietary and Nutrition Adequate Nutrition. Nutritional Education. Nutritional Supplements. - Occupational Therapy Cognitive Retraining. Visual Perceptual Training. - Speech Therapy Cognitive Training. Expressive Language Skills. Memory Strategies. Receptive Language Skills. Speech Intelligibility Training. PHYSICAL EXAM - Gen Alert and awake Lying in bed No apparent distress Oriented to: person, time, and place - Skin Stage II on left buttocks. - Eyes No abnormalities - ENMT No abnormalities - Neck No abnormalities No cervical adenopathy - CVS RRR - Chest Mildly decreased breath sounds bilaterally. - Resp No wheezing - Abd Soft - GI Non distended Deferred - No abnormalities - Ext Mild bilateral lower extremity edema. - MSK 4/5 weakness in both lower extremities. - Neuro No focal deficits - Psych No abnormalities ASSESSMENT: Pt. is a 46 yo Right-handed female.On 07/11/2021 she was admitted to [facility] with diagnosis CHF Exacerbation, A-Flutter with RVR, resp failure.Her impairment category is Cardiac 09 - Cardiac Disorders ().Pre-morbidly, Pt. was independent/mod-I in Locomotion, Social Cognition , Safety Awareness, Transfers Control, and Balance; and she had good Sphincter Control, Self-Care, Co mmunication, and Endurance.Currently, she has deficits of Locomotion, Safety Awareness, Balance, Sphi ncter Control, and Endurance.Pt. is now referred to [facility] for acute in-pa tient rehabilitation in order to maximize patient's functional independence in activities of daily li ving, strength, ROM, and mobility.- Rehab Goal Patient has realistic goal of being discharged at assistance level 7-Ind to reside at Home with Fami ly/Relatives. MDM/PLAN: - Physical Therapy Gait dysfunction - to improve, our physical therapists will perform initial evaluation of pt's statu s upon admission and devise an individualized program for Gait Training, and Wheel Chair mobility Need for home safety evaluation - to improve, our physical therapists will perform initial evaluatio n of pt's status upon admission and devise an individualized program for Home Evaluation Need in caregiver upon discharge - to improve, our physical therapists will perform initial evaluati on of pt's status upon admission and devise an individualized program for Caregiver Training New precaution - to improve, our physical therapists will perform initial evaluation of pt's status upon admission and devise an individualized program for Patient precaution education Edema - to improve, our physical therapists will perform initial evaluation of pt's status upon admi ssion and devise an individualized program for Elevation Training, and Lymphedema Therapy Poor balance - to improve, our physical therapists will perform initial evaluation of pt's status up on admission and devise an individualized program for Balance Training Poor endurance - to improve, our physical therapists will perform initial evaluation of pt's status upon admission and devise an individualized program for Endurance Training Weakness - to improve, our physical therapists will perform initial evaluation of pt's status upon a dmission and devise an individualized program for Aquatic Therapy, Neuromuscular Reeducation, and Str engthening Achieving independence - to improve, our physical therapists will perform initial evaluation of pt's status upon admission and devise an individualized program for Community Reintegration Activities - Occupational Therapy Need for family day care worker - to improve, our occupation therapists will perform initial evaluation of pt's status upon admission and devise an individualized program for Caregiver Training Weakness - to improve, our occupation therapists will perform initial evaluation of pt's status upon admission and devise an individualized program for Aquatic Therapy, Balance, Endurance, UE ROM, and UE strengthening - Other See attached MAR (Medication Administration Record) - Diet Type Continue Regular - Diet - Liquid Texture Continue Regular - Tube Feed Continue N/A - Fall Precaution SAFTY AND FALL - Diet - Solid Texture Continue Regular - Shower allowing shower FUNCTIONAL STATUS: UPDATED AT WEEKLY TEAM CONFERENCE - Bladder Same accident frequency: 7-Ind - No accidents in the past 7 days - Bowel Same accident frequency: 7-Ind - No accidents in the past 7 days - Walking Same score based on distance walked: 0(N/A) - Wheelchair Same score based on distance traveled: 0(N/A) FUNCTIONAL STATUS: - Self-Care A. Eating Ind B. Grooming Yasmin C. Bathing maxA D. Dressing - Upper modA E. Dressing - Lower maxA F. Toileting modA - Sphincter Control G. Bladder control Ashok H. Bowel control Ashok - Transfers Control I. Bed/Chair/Wheelchair maxA J. Toilet maxA K. Tub/Shower maxA - Locomotion L. Walk/Wheelchair (B) modA M. Stairs ADNO - Communication N. Comprehension (B) Ashok O. Expression (B) Ashok - Social Cognition P. Social Interaction Ind Q. Problem Solving Ashok R. Memory Ind - Endurance Poor - Balance Fair - Safety Awareness Fair QI SCORES: - Self-Care A. Eating 05-Setup or clean-up assistance B. Oral hygiene 02-Substantial/maximal assistance C. Toileting hygiene 01-Dependent E. Shower/bathe self 01-Dependent F. Upper body dressing 03-Partial/moderate assistance G. Lower body dressing 02-Substantial/maximal assistance H. Putting on/taking off footwear 88-Not attempted due to medical condition or safety concerns - Mobility A. Roll left and right 02-Substantial/maximal assistance B. Sit to lying 02-Substantial/maximal assistance C. Lying to sitting on side of bed 02-Substantial/maximal assistance D. Sit to stand 02-Substantial/maximal assistance E. Chair/[id number] transfer 02-Substantial/maximal assistance F. Toilet transfer 02-Substantial/maximal assistance G. Car transfer 88-Not attempted due to medical condition or safety concerns I. Walk 10 feet 88-Not attempted due to medical condition or safety concerns J. Walk 50 feet with two turns 88-Not attempted due to medical condition or safety concerns K. Walk 150 feet 88-Not attempted due to medical condition or safety concerns L. Walking 10 feet on uneven surfaces 88-Not attempted due to medical condition or safety concerns M. 1 step (curb) 88-Not attempted due to medical condition or safety concerns N. 4 steps 88-Not attempted due to medical condition or safety concerns O. 12 steps 88-Not attempted due to medical condition or safety concerns P. Picking up object 88-Not attempted due to medical condition or safety concerns R. Wheel 50 feet with two turns 88-Not attempted due to medical condition or safety concerns S. Wheel 150 feet 88-Not attempted due to medical condition or safety concerns - Bladder and Bowel Bladder continence Bowel continence - Endurance Fair - Balance Fair - Safety Awareness Fair [facility] DEFICITS: Self-Care, Mobility, Endurance, Balance, and Safety Awareness SIGNATURE PANEL: (CDT)
[2021-07-29] MEDS: DOCUSATE NA/SENNA CONC 1 TAB PO PRN (20:02)
[2021-07-29] MEDS: MELATONIN 5 MG TABLET PO PRN (20:02)
[2021-07-30 05:12] LABS: Protime INR 2.3
[2021-07-30] MEDS: ASCORBIC ACID 500 MG TABLET PO SCH ×2 (08:00→08:20)
[2021-07-30] MEDS: JUVEN PACKET PO SCH ×2 (08:00→19:01)
[2021-07-30] MEDS: CRANBERRY FRUIT EXTRACT 400 MG CAP PO SCH ×3 (08:00→19:00)
[2021-07-30] MEDS: POTASSIUM CL SA 10 MEQ TAB PO SCH ×3 (08:00→19:01)
[2021-07-30] MEDS: acetaZOLAMIDE 250 MG TAB PO SCH ×3 (08:00→19:01)
[2021-07-30] MEDS: LIDOCAINE 4% PATCH TOP SCH (08:19)
[2021-07-30] MEDS: ACETAMINOPHEN 325 MG TABLET PO PRN ×2 (08:19→19:00)
[2021-07-30] MEDS: AMIODARONE HCL 200 MG TAB PO SCH (08:20)
[2021-07-30] MEDS: ZINC SULFATE 220 MG CAP PO SCH (08:20)
[2021-07-30] MEDS: METOPROLOL XL 25 MG TAB PO SCH ×2 (08:21→19:02)
[2021-07-30] MEDS: MAGNESIUM OXIDE 400 MG TAB PO SCH ×2 (08:22→19:01)
[2021-07-30] MEDS: FUROSEMIDE 40 MG TABLET PO SCH ×3 (08:22→16:14)
[2021-07-30] MEDS: DOCUSATE NA 100 MG CAP PO SCH (08:22)
[2021-07-30] MEDS: ENSURE HIGH PROTEIN 237 ML CAN PO SCH ×3 (08:23→19:02)
[2021-07-30] MEDS: COLLAGENASE 30 GM OINTMENT TOP SCH (10:18)
[2021-07-30] MEDS: NYSTATIN PWDR 100000 UNIT/GM TOP SCH ×2 (10:18→19:01)
[2021-07-30] MEDS: methocarbamoL 500 MG TAB PO PRN (13:40)
[2021-07-30] MEDS: WARFARIN SODIUM 4 MG TAB PO SCH (16:13)
[2021-07-30] MEDS: WARFARIN SODIUM 5 MG TAB PO SCH (16:13)
[2021-07-30] MEDS: MELATONIN 5 MG TABLET PO PRN (19:01)
[2021-07-31 05:38] LABS: Protime INR 2.19
[2021-07-31] MEDS: JUVEN PACKET PO SCH ×2 (08:00→19:44)
[2021-07-31] MEDS: NYSTATIN PWDR 100000 UNIT/GM TOP SCH ×2 (08:00→20:32)
[2021-07-31] MEDS: COLLAGENASE 30 GM OINTMENT TOP SCH (08:00)
[2021-07-31] MEDS: POTASSIUM CL SA 10 MEQ TAB PO SCH ×2 (10:19→19:43)
[2021-07-31] MEDS: CRANBERRY FRUIT EXTRACT 400 MG CAP PO SCH ×2 (10:19→19:42)
[2021-07-31] MEDS: ASCORBIC ACID 500 MG TABLET PO SCH (10:19)
[2021-07-31] MEDS: acetaZOLAMIDE 250 MG TAB PO SCH ×2 (10:19→19:43)
[2021-07-31] MEDS: MAGNESIUM OXIDE 400 MG TAB PO SCH ×2 (10:20→19:43)
[2021-07-31] MEDS: DOCUSATE NA 100 MG CAP PO SCH (10:20)
[2021-07-31] MEDS: AMIODARONE HCL 200 MG TAB PO SCH (10:20)
[2021-07-31] MEDS: FUROSEMIDE 40 MG TABLET PO SCH ×2 (10:20→17:17)
[2021-07-31] MEDS: ZINC SULFATE 220 MG CAP PO SCH (10:20)
[2021-07-31] MEDS: METOPROLOL XL 25 MG TAB PO SCH ×2 (10:21→19:43)
[2021-07-31 10:36] LABS: BUN Blood Urea Nitrogen 10 mg/dL (7-18); Bicarbonate 35 mmol/L (21-32); Glucose Level 92 mg/dL (74-106); Potassium 3.6 mmol/L (3.5-5.1); Sodium Level 141 mmol/L (136-145)
[2021-07-31] MEDS: ENSURE HIGH PROTEIN 237 ML CAN PO SCH ×3 (10:40→19:44)
[2021-07-31] MEDS: LIDOCAINE 4% PATCH TOP SCH (10:41)
[2021-07-31] MEDS: ACETAMINOPHEN 325 MG TABLET PO PRN (14:59)
[2021-07-31] MEDS: WARFARIN SODIUM 5 MG TAB PO SCH (17:17)
[2021-07-31] MEDS: WARFARIN SODIUM 4 MG TAB PO SCH (17:17)
--- NOTE | 2021-07-31 17:42 | R.PN ---
PROGRESS NOTES ENCOUNTER DATE AND TIME: 07/31/2021 17:37 (CDT) NAME GRAZYNA GOMEZ DATE OF : 1975 DATE OF ADMISSION: 07/19/2021 13:44 (CDT) CHF Exacerbation, A-Flutter with RVR, resp failureCHIEF COMPLAINT: Debility, CHF exacerbation, extreme obesity. SUBJECTIVE: Pt denied any depression. Pt denied any Shortness of Breath. Hgb 10.1, WBC 4.0, prealbumin 8.1, K 3.6, Increase K+ to 20 meq bid, UA loaded with bacteria, trace e sterase but < 10,000 cfu. INR 2.190 On coumadin 9 mg daily. Ambulated total of 25' with rollator and CGA. VITAL SIGNS Temperature: 97.2 F SBP/DBP: 131/64 Pulse: 80 Resp: 16 MEDICATION ALLERGIES: No Known Drug Allergies (NKDA) ENVIRONMENTAL ALLERGIES: - Substance Allergies None Known - Other Allergies None Known NURSING: - Shower allowing shower PRECAUTIONS: - Fall Precaution SAFTY AND FALL ACTIVITIES OOB only with supervision THERAPIES: - Dietary and Nutrition Adequate Nutrition. Nutritional Education. Nutritional Supplements. - Occupational Therapy Cognitive Retraining. Visual Perceptual Training. - Speech Therapy Cognitive Training. Expressive Language Skills. Memory Strategies. Receptive Language Skills. Speech Intelligibility Training. PHYSICAL EXAM - Gen Alert and awake Lying in bed No apparent distress Oriented to: person, time, and place - Skin Stage II on left buttocks. - Eyes No abnormalities - ENMT No abnormalities - Neck No abnormalities No cervical adenopathy - CVS RRR - Chest Mildly decreased breath sounds bilaterally. - Resp No wheezing - Abd Soft - GI Non distended Deferred - No abnormalities - Ext Mild bilateral lower extremity edema. - MSK 4/5 weakness in both lower extremities. - Neuro No focal deficits - Psych No abnormalities ASSESSMENT: Pt. is a 46 yo Right-handed female.On 07/11/2021 she was admitted to [facility] with diagnosis CHF Exacerbation, A-Flutter with RVR, resp failure.Her impairment category is Cardiac 09 - Cardiac Disorders (09).Pre-morbidly, Pt. was independent/mod-I in Locomotion, Social Cognition , Safety Awareness, Transfers Control, and Balance; and she had good Sphincter Control, Self-Care, Co mmunication, and Endurance.Currently, she has deficits of Locomotion, Safety Awareness, Balance, Sphi ncter Control, and Endurance.Pt. is now referred to [facility] for acute in-pa tient rehabilitation in order to maximize patient's functional independence in activities of daily li ving, strength, ROM, and mobility.- Rehab Goal Patient has realistic goal of being discharged at assistance level 7-Ind to reside at Home with Fami ly/Relatives. MDM/PLAN: - Physical Therapy Gait dysfunction - to improve, our physical therapists will perform initial evaluation of pt's statu s upon admission and devise an individualized program for Gait Training, and Wheel Chair mobility Need for home safety evaluation - to improve, our physical therapists will perform initial evaluatio n of pt's status upon admission and devise an individualized program for Home Evaluation Need in caregiver upon discharge - to improve, our physical therapists will perform initial evaluati on of pt's status upon admission and devise an individualized program for Caregiver Training New precaution - to improve, our physical therapists will perform initial evaluation of pt's status upon admission and devise an individualized program for Patient precaution education Edema - to improve, our physical therapists will perform initial evaluation of pt's status upon admi ssion and devise an individualized program for Elevation Training, and Lymphedema Therapy Poor balance - to improve, our physical therapists will perform initial evaluation of pt's status up on admission and devise an individualized program for Balance Training Poor endurance - to improve, our physical therapists will perform initial evaluation of pt's status upon admission and devise an individualized program for Endurance Training Weakness - to improve, our physical therapists will perform initial evaluation of pt's status upon a dmission and devise an individualized program for Aquatic Therapy, Neuromuscular Reeducation, and Str engthening Achieving independence - to improve, our physical therapists will perform initial evaluation of pt's status upon admission and devise an individualized program for Community Reintegration Activities - Occupational Therapy Need for childbirth and infant care teacher - to improve, our occupation therapists will perform initial evaluation of pt's status upon admission and devise an individualized program for Caregiver Training Weakness - to improve, our occupation therapists will perform initial evaluation of pt's status upon admission and devise an individualized program for Aquatic Therapy, Balance, Endurance, UE ROM, and UE strengthening - Other See attached MAR (Medication Administration Record) - Diet Type Continue Regular - Diet - Liquid Texture Continue Regular - Tube Feed Continue N/A - Fall Precaution SAFTY AND FALL - Diet - Solid Texture Continue Regular - Shower allowing shower FUNCTIONAL STATUS: UPDATED AT WEEKLY TEAM CONFERENCE - Bladder Same accident frequency: 7-Ind - No accidents in the past 7 days - Bowel Same accident frequency: 7-Ind - No accidents in the past 7 days - Walking Same score based on distance walked: 0(N/A) - Wheelchair Same score based on distance traveled: 0(N/A) FUNCTIONAL STATUS: - Self-Care A. Eating Ind B. Grooming Yasmin C. Bathing maxA D. Dressing - Upper modA E. Dressing - Lower maxA F. Toileting modA - Sphincter Control G. Bladder control Ashok H. Bowel control Ashok - Transfers Control I. Bed/Chair/Wheelchair maxA J. Toilet maxA K. Tub/Shower maxA - Locomotion L. Walk/Wheelchair (B) modA M. Stairs ADNO - Communication N. Comprehension (B) Ashok O. Expression (B) Ashok - Social Cognition P. Social Interaction Ind Q. Problem Solving Ashok R. Memory Ind - Endurance Poor - Balance Fair - Safety Awareness Fair QI SCORES: - Self-Care A. Eating 05-Setup or clean-up assistance B. Oral hygiene 02-Substantial/maximal assistance C. Toileting hygiene 01-Dependent E. Shower/bathe self 01-Dependent F. Upper body dressing 03-Partial/moderate assistance G. Lower body dressing 02-Substantial/maximal assistance H. Putting on/taking off footwear 88-Not attempted due to medical condition or safety concerns - Mobility A. Roll left and right 02-Substantial/maximal assistance B. Sit to lying 02-Substantial/maximal assistance C. Lying to sitting on side of bed 02-Substantial/maximal assistance D. Sit to stand 02-Substantial/maximal assistance E. Chair/qqe-fh-[id number] transfer 02-Substantial/maximal assistance F. Toilet transfer 02-Substantial/maximal assistance G. Car transfer 88-Not attempted due to medical condition or safety concerns I. Walk 10 feet 88-Not attempted due to medical condition or safety concerns J. Walk 50 feet with two turns 88-Not attempted due to medical condition or safety concerns K. Walk 150 feet 88-Not attempted due to medical condition or safety concerns L. Walking 10 feet on uneven surfaces 88-Not attempted due to medical condition or safety concerns M. 1 step (curb) 88-Not attempted due to medical condition or safety concerns N. 4 steps 88-Not attempted due to medical condition or safety concerns O. 12 steps 88-Not attempted due to medical condition or safety concerns P. Picking up object 88-Not attempted due to medical condition or safety concerns R. Wheel 50 feet with two turns 88-Not attempted due to medical condition or safety concerns S. Wheel 150 feet 88-Not attempted due to medical condition or safety concerns - Bladder and Bowel Bladder continence Bowel continence - Endurance Fair - Balance Fair - Safety Awareness Fair CURRENT [facility]. DEFICITS: Self-Care, Mobility, Endurance, Balance, and Safety Awareness SIGNATURE PANEL: (CDT)
[2021-08-01 05:46] LABS: Protime INR 2.2
[2021-08-01 05:49] LABS: Basophils % 0.5 % (0-1.3); Hematocrit 32.8 % (36.0-45.0); MPV 8.5 fL (7.6-11.3); RBC Red Blood Cell Count 4.14 M/uL (3.86-4.86)
[2021-08-01 06:01] LABS: Albumin 2.6 g/dL (3.4-5.0); BUN Blood Urea Nitrogen 10 mg/dL (7-18); Bicarbonate 35 mmol/L (21-32); Glucose Level 93 mg/dL (74-106); Magnesium 2.1 mg/dL (1.8-2.4); Potassium 3.5 mmol/L (3.5-5.1); Prealbumin 9.6 mg/dL (20-40); Sodium Level 143 mmol/L (136-145)
[2021-08-01] MEDS: JUVEN PACKET PO SCH ×2 (08:00→20:00)
[2021-08-01] MEDS: ACETAMINOPHEN 325 MG TABLET PO PRN ×2 (09:01→17:24)
[2021-08-01] MEDS: POTASSIUM CL SA 10 MEQ TAB PO SCH ×2 (09:02→20:00)
[2021-08-01] MEDS: DOCUSATE NA 100 MG CAP PO SCH (09:02)
[2021-08-01] MEDS: AMIODARONE HCL 200 MG TAB PO SCH (09:02)
[2021-08-01] MEDS: MAGNESIUM OXIDE 400 MG TAB PO SCH ×2 (09:02→20:00)
[2021-08-01] MEDS: acetaZOLAMIDE 250 MG TAB PO SCH ×2 (09:03→20:00)
[2021-08-01] MEDS: METOPROLOL XL 25 MG TAB PO SCH ×2 (09:03→20:00)
[2021-08-01] MEDS: COLLAGENASE 30 GM OINTMENT TOP SCH (09:15)
[2021-08-01] MEDS: NYSTATIN PWDR 100000 UNIT/GM TOP SCH ×2 (09:15→19:59)
[2021-08-01 09:32] LABS: Anisocytosis 2+; Blood Morphology Comment NOTED (NOT SEEN); Ovalocytes 1+; Platelet Estimate ADEQ; White Blood Cell Scan OK (OK)
[2021-08-01] MEDS: CRANBERRY FRUIT EXTRACT 400 MG CAP PO SCH ×2 (10:41→20:00)
[2021-08-01] MEDS: ZINC SULFATE 220 MG CAP PO SCH (10:42)
[2021-08-01] MEDS: FUROSEMIDE 40 MG TABLET PO SCH ×2 (10:42→17:15)
[2021-08-01] MEDS: ASCORBIC ACID 500 MG TABLET PO SCH (10:42)
[2021-08-01] MEDS: ENSURE HIGH PROTEIN 237 ML CAN PO SCH ×3 (10:42→20:01)
[2021-08-01] MEDS: LIDOCAINE 4% PATCH TOP SCH (11:15)
--- NOTE | 2021-08-01 15:24 | RAD REPORT ---
EXAM DESCRIPTION: RAD - Chest Single View - 08/01/2021 3:07 pm CLINICAL HISTORY: hx chf COMPARISON: Chest Single View dated 07/01/2021; Chest Single View dated 06/29/2021; Chest Single View dated 06/28/2021; Chest Single View dated 06/27/2021 FINDINGS: Markedly limited due to the patient's body habitus. There is improved aeration of the left lung compared with prior however there is still residual diffuse opacities. There is prominence of t he pulmonary vasculature on the right. No focal consolidative process is present in the right lung. C ardiomegaly . IMPRESSION: Improved aeration of the left lung with residual diffuse opacities that could reflect as ymmetric edema given the history of CHF.
[2021-08-01] MEDS: WARFARIN SODIUM 4 MG TAB PO SCH (17:14)
[2021-08-01] MEDS: WARFARIN SODIUM 5 MG TAB PO SCH (17:15)
--- NOTE | 2021-08-01 17:52 | R.PN ---
PROGRESS NOTES ENCOUNTER DATE AND TIME: 08/01/2021 17:45 (CDT) NAME GRAZYNA GOMEZ DATE OF : 1975 DATE OF ADMISSION: 07/19/2021 13:44 (CDT) CHF Exacerbation, A-Flutter with RVR, resp failureCHIEF COMPLAINT: Debility, CHF exacerbation, extreme obesity. SUBJECTIVE: Pt denied any depression. Pt denied any Shortness of Breath. Hgb 9.8, WBC 4.3, prealbumin 9.6, K 3.5, K+ to 20 meq bid, UA loaded with bacteria, trace esterase bu t < 10,000 cfu. INR 2.2 On coumadin 9 mg daily. Ambulated total of 30' with rollator and CGA. Wheelchair mobility 160' with standby assistance. VITAL SIGNS Temperature: 97.6 F SBP/DBP: 118/86 Pulse: 93 Resp: 16 MEDICATION ALLERGIES: No Known Drug Allergies (NKDA) ENVIRONMENTAL ALLERGIES: - Substance Allergies None Known - Other Allergies None Known NURSING: - Shower allowing shower PRECAUTIONS: - Fall Precaution SAFTY AND FALL ACTIVITIES OOB only with supervision THERAPIES: - Dietary and Nutrition Adequate Nutrition. Nutritional Education. Nutritional Supplements. - Occupational Therapy Cognitive Retraining. Visual Perceptual Training. - Speech Therapy Cognitive Training. Expressive Language Skills. Memory Strategies. Receptive Language Skills. Speech Intelligibility Training. PHYSICAL EXAM - Gen Alert and awake Lying in bed No apparent distress Oriented to: person, time, and place - Skin Stage II on left buttocks. - Eyes No abnormalities - ENMT No abnormalities - Neck No abnormalities No cervical adenopathy - CVS RRR - Chest Mildly decreased breath sounds bilaterally. - Resp No wheezing - Abd Soft - GI Non distended Deferred - No abnormalities - Ext Mild bilateral lower extremity edema. - MSK 4/5 weakness in both lower extremities. - Neuro No focal deficits - Psych No abnormalities ASSESSMENT: Pt. is a 46 yo Right-handed female.On 07/11/2021 she was admitted to [facility] with diagnosis CHF Exacerbation, A-Flutter with RVR, resp failure.Her impairment category is Cardiac 09 - Cardiac Disorders ().Pre-morbidly, Pt. was independent/mod-I in Locomotion, Social Cognition , Safety Awareness, Transfers Control, and Balance; and she had good Sphincter Control, Self-Care, Co mmunication, and Endurance.Currently, she has deficits of Locomotion, Safety Awareness, Balance, Sphi ncter Control, and Endurance.Pt. is now referred to [facility] for acute in-pa tient rehabilitation in order to maximize patient's functional independence in activities of daily li ving, strength, ROM, and mobility.- Rehab Goal Patient has realistic goal of being discharged at assistance level 7-Ind to reside at Home with Fami ly/Relatives. MDM/PLAN: - Physical Therapy Gait dysfunction - to improve, our physical therapists will perform initial evaluation of pt's statu s upon admission and devise an individualized program for Gait Training, and Wheel Chair mobility Need for home safety evaluation - to improve, our physical therapists will perform initial evaluatio n of pt's status upon admission and devise an individualized program for Home Evaluation Need in caregiver upon discharge - to improve, our physical therapists will perform initial evaluati on of pt's status upon admission and devise an individualized program for Caregiver Training New precaution - to improve, our physical therapists will perform initial evaluation of pt's status upon admission and devise an individualized program for Patient precaution education Edema - to improve, our physical therapists will perform initial evaluation of pt's status upon admi ssion and devise an individualized program for Elevation Training, and Lymphedema Therapy Poor balance - to improve, our physical therapists will perform initial evaluation of pt's status up on admission and devise an individualized program for Balance Training Poor endurance - to improve, our physical therapists will perform initial evaluation of pt's status upon admission and devise an individualized program for Endurance Training Weakness - to improve, our physical therapists will perform initial evaluation of pt's status upon a dmission and devise an individualized program for Aquatic Therapy, Neuromuscular Reeducation, and Str engthening Achieving independence - to improve, our physical therapists will perform initial evaluation of pt's status upon admission and devise an individualized program for Community Reintegration Activities - Occupational Therapy Need for critical care rn - to improve, our occupation therapists will perform initial evaluation of pt's status upon admission and devise an individualized program for Caregiver Training Weakness - to improve, our occupation therapists will perform initial evaluation of pt's status upon admission and devise an individualized program for Aquatic Therapy, Balance, Endurance, UE ROM, and UE strengthening - Other See attached MAR (Medication Administration Record) - Diet Type Continue Regular - Diet - Liquid Texture Continue Regular - Tube Feed Continue N/A - Fall Precaution SAFTY AND FALL - Diet - Solid Texture Continue Regular - Shower allowing shower FUNCTIONAL STATUS: UPDATED AT WEEKLY TEAM CONFERENCE - Bladder Same accident frequency: 7-Ind - No accidents in the past 7 days - Bowel Same accident frequency: 7-Ind - No accidents in the past 7 days - Walking Same score based on distance walked: 0(N/A) - Wheelchair Same score based on distance traveled: 0(N/A) FUNCTIONAL STATUS: - Self-Care A. Eating Ind B. Grooming Yasmin C. Bathing maxA D. Dressing - Upper modA E. Dressing - Lower maxA F. Toileting modA - Sphincter Control G. Bladder control Ashok H. Bowel control Ashok - Transfers Control I. Bed/Chair/Wheelchair maxA J. Toilet maxA K. Tub/Shower maxA - Locomotion L. Walk/Wheelchair (B) modA M. Stairs ADNO - Communication N. Comprehension (B) Ashok O. Expression (B) Ashok - Social Cognition P. Social Interaction Ind Q. Problem Solving Ashok R. Memory Ind - Endurance Poor - Balance Fair - Safety Awareness Fair QI SCORES: - Self-Care A. Eating 05-Setup or clean-up assistance B. Oral hygiene 02-Substantial/maximal assistance C. Toileting hygiene 01-Dependent E. Shower/bathe self 01-Dependent F. Upper body dressing 03-Partial/moderate assistance G. Lower body dressing 02-Substantial/maximal assistance H. Putting on/taking off footwear 88-Not attempted due to medical condition or safety concerns - Mobility A. Roll left and right 02-Substantial/maximal assistance B. Sit to lying 02-Substantial/maximal assistance C. Lying to sitting on side of bed 02-Substantial/maximal assistance D. Sit to stand 02-Substantial/maximal assistance E. Chair/[id number]-[id number] transfer 02-Substantial/maximal assistance F. Toilet transfer 02-Substantial/maximal assistance G. Car transfer 88-Not attempted due to medical condition or safety concerns I. Walk 10 feet 88-Not attempted due to medical condition or safety concerns J. Walk 50 feet with two turns 88-Not attempted due to medical condition or safety concerns K. Walk 150 feet 88-Not attempted due to medical condition or safety concerns L. Walking 10 feet on uneven surfaces 88-Not attempted due to medical condition or safety concerns M. 1 step (curb) 88-Not attempted due to medical condition or safety concerns N. 4 steps 88-Not attempted due to medical condition or safety concerns O. 12 steps 88-Not attempted due to medical condition or safety concerns P. Picking up object 88-Not attempted due to medical condition or safety concerns R. Wheel 50 feet with two turns 88-Not attempted due to medical condition or safety concerns S. Wheel 150 feet 88-Not attempted due to medical condition or safety concerns - Bladder and Bowel Bladder continence Bowel continence - Endurance Fair - Balance Fair - Safety Awareness Fair CURRENT [facility]. DEFICITS: Self-Care, Mobility, Endurance, Balance, and Safety Awareness SIGNATURE PANEL: (CDT)
[2021-08-01] MEDS: MELATONIN 5 MG TABLET PO PRN (20:00)
[2021-08-02 06:10] LABS: Protime INR 2.24
[2021-08-02] MEDS: JUVEN PACKET PO SCH ×2 (08:00→19:50)
[2021-08-02] MEDS: LIDOCAINE 4% PATCH TOP SCH (09:03)
[2021-08-02] MEDS: DOCUSATE NA 100 MG CAP PO SCH (09:04)
[2021-08-02] MEDS: CRANBERRY FRUIT EXTRACT 400 MG CAP PO SCH ×2 (09:04→19:49)
[2021-08-02] MEDS: acetaZOLAMIDE 250 MG TAB PO SCH ×2 (09:04→19:50)
[2021-08-02] MEDS: METOPROLOL XL 25 MG TAB PO SCH ×2 (09:05→19:50)
[2021-08-02] MEDS: AMIODARONE HCL 200 MG TAB PO SCH (09:05)
[2021-08-02] MEDS: POTASSIUM CL SA 10 MEQ TAB PO SCH ×2 (09:05→19:49)
[2021-08-02] MEDS: FUROSEMIDE 40 MG TABLET PO SCH ×2 (09:05→18:22)
[2021-08-02] MEDS: ZINC SULFATE 220 MG CAP PO SCH (09:05)
[2021-08-02] MEDS: MAGNESIUM OXIDE 400 MG TAB PO SCH ×2 (09:06→19:50)
[2021-08-02] MEDS: ASCORBIC ACID 500 MG TABLET PO SCH (09:06)
[2021-08-02] MEDS: COLLAGENASE 30 GM OINTMENT TOP SCH (09:06)
[2021-08-02] MEDS: ENSURE HIGH PROTEIN 237 ML CAN PO SCH ×3 (09:07→19:51)
[2021-08-02] MEDS: NYSTATIN PWDR 100000 UNIT/GM TOP SCH ×2 (09:09→19:50)
--- NOTE | 2021-08-02 09:51 | P.RH.PN ---
Estimated Length of Stay: 20 Expected Discharge Date: 08/08/21 Discharge Disposition Plan: Home Family Support: Yes Custodial Goal: Mobility, Transfers, Self Care Vital Signs: Last Vital Signs Temp 97.6 F 08/02/21 07:28 Pulse 104 H 08/02/21 09:05 Resp 18 08/02/21 07:28 BP 119/74 08/02/21 09:05 Pulse Ox 96 08/02/21 07:28 Laboratory: Laboratory Last Values WBC 4.30 K/uL (4.3-10.9) 08/01/21 05:00 RBC 4.14 M/uL (3.86-4.86) 08/01/21 05:00 Hgb 9.8 g/dL (12.0-15.0) L 08/01/21 05:00 Hct 32.8 % (36.0-45.0) L 08/01/21 05:00 MCV 79.3 fL (80-100) L 08/01/21 05:00 MCH 23.8 pg (27.0-35.0) L 08/01/21 05:00 MCHC 30.0 g/dL (32.0-36.0) L 08/01/21 05:00 RDW 22.9 % (12.1-15.2) H 08/01/21 05:00 Plt Count 211 K/uL (152-406) 08/01/21 05:00 MPV 8.5 fL (7.6-11.3) 08/01/21 05:00 Neutrophils % 62.8 % (41.7-73.7) 08/01/21 05:00 Lymphocytes % 22.0 % (15.3-44.8) 08/01/21 05:00 Monocytes % 12.5 % (3.3-12.3) H 08/01/21 05:00 Eosinophils % 2.2 % (0-4.4) 08/01/21 05:00 Basophils % 0.5 % (0-1.3) 08/01/21 05:00 Absolute Neutrophils 2.7 K/uL (1.8-8.0) 08/01/21 05:00 Absolute Lymphocytes 1.0 K/uL (0.7-4.9) 08/01/21 05:00 Absolute Monocytes 0.5 K/uL (0.1-1.3) 08/01/21 05:00 Absolute Eosinophils 0.1 K/uL (0-0.5) 08/01/21 05:00 Absolute Basophils 0.0 K/uL (0-0.5) 08/01/21 05:00 Platelet Estimate Adeq 08/01/21 05:00 Clumped Platelets Few present 08/01/21 05:00 Hypochromasia 2+ 07/19/21 05:52 Poikilocytosis Slight 07/19/21 05:52 Anisocytosis 2+ 08/01/21 05:00 Microcytosis 1+ 08/01/21 05:00 Target Cells Few 07/19/21 05:52 Ovalocytes 1+ 08/01/21 05:00 Stomatocytes 2+ 07/19/21 05:52 Morphology Comment Noted (NOT SEEN) 08/01/21 05:00 PT 26.0 SECONDS (9.5-12.5) H 08/02/21 05:50 INR 2.24 08/02/21 05:50 APTT 30.0 SECONDS (24.3-36.9) 07/19/21 05:52 Sodium 143 mmol/L (136-145) 08/01/21 05:00 Potassium 3.5 mmol/L (3.5-5.1) 08/01/21 05:00 Chloride 106 mmol/L (98-107) 08/01/21 05:00 Carbon Dioxide 35 mmol/L (21-32) H 08/01/21 05:00 BUN 10 mg/dL (7-18) 08/01/21 05:00 Creatinine 0.50 mg/dL (0.55-1.3) L 08/01/21 05:00 Estimated GFR > 90 mL/min (=/>90) 08/01/21 05:00 Glucose 93 mg/dL (74-106) 08/01/21 05:00 Calcium 8.4 mg/dL (8.5-10.1) L 08/01/21 05:00 Magnesium 2.1 mg/dL (1.8-2.4) 08/01/21 05:00 Albumin 2.6 g/dL (3.4-5.0) L 08/01/21 05:00 Prealbumin 9.6 mg/dL (20-40) L 08/01/21 05:00 Urine Color Dk yellow (Yellow) 07/19/21 01:08 Urine Appearance Turbid (Clear) 07/19/21 01:08 Urine pH 5.5 (5.0-7.0) 07/19/21 01:08 Ur Specific Bland 1.020 (1.005-1.030) 07/19/21 01:08 Glucose (UA)(Auto) Negative (Negative) 07/19/21 01:08 Urine Ketones Negative (Negative) 07/19/21 01:08 Urine Blood Trace (Negative) H 07/19/21 01:08 Urine Nitrite Negative (Negative) 07/19/21 01:08 Urine Bilirubin Negative (Negative) 07/19/21 01:08 Urine Urobilinogen 1.0 mg/dL (0.2-1.0) 07/19/21 01:08 Ur Leukocyte Esterase Trace (Negative) H 07/19/21 01:08 Urine RBC <5 /HPF (NONE SEEN) 07/19/21 01:08 Urine WBC <5 /HPF (<5) 07/19/21 01:08 Ur Squamous Epith Cells <5 /HPF (NONE SEEN) 07/19/21 01:08 Amorphous Sediment 2+ /HPF (NONE SEEN) H 07/19/21 01:08 Urine Bacteria Loaded /HPF (<20) H 07/19/21 01:08 Urine Mucus 2+ /HPF (NONE SEEN) 07/19/21 01:08 Urine Culture Reflexed Not needed 07/19/21 01:08 Urine Total Protein 1+ (Negative) H 07/19/21 01:08 Smear Scan Ok (OK) 08/01/21 05:00 Weight: 485 lb Wound Present: Yes Closed Surgical Incision Present: No Negative Pressure Wound Therapy Present: No Physician Update: Labs reviewed and are stable. INR is 2.4, and otherwise labs are stable. She is doing better with all therapy. She had mild to moderate increase in leg pain as she stands a bit longer. She has a left neck skin tag she mild bleeding will be addressed by wound care. She has a BM. Walking up to 48' with contact guard to standby. Can get in and out of bed on her own. 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 Please see the Rehabilitation Signature page for all necessary signatures.
[2021-08-02] MEDS: WARFARIN SODIUM 5 MG TAB PO SCH (18:22)
[2021-08-02] MEDS: WARFARIN SODIUM 4 MG TAB PO SCH (18:22)
[2021-08-02] MEDS: MELATONIN 5 MG TABLET PO PRN (19:49)
[2021-08-02] MEDS: ACETAMINOPHEN 325 MG TABLET PO PRN (19:49)
[2021-08-03 05:34] VITALS: BMI 76.3
[2021-08-03] MEDS: LIDOCAINE 4% PATCH TOP SCH (07:59)
[2021-08-03] MEDS: ENSURE HIGH PROTEIN 237 ML CAN PO SCH ×3 (07:59→20:18)
[2021-08-03] MEDS: ACETAMINOPHEN 325 MG TABLET PO PRN ×2 (08:00→20:17)
[2021-08-03] MEDS: JUVEN PACKET PO SCH ×2 (08:00→20:00)
[2021-08-03] MEDS: ZINC SULFATE 220 MG CAP PO SCH (08:01)
[2021-08-03] MEDS: MAGNESIUM OXIDE 400 MG TAB PO SCH ×2 (08:01→20:00)
[2021-08-03] MEDS: POTASSIUM CL SA 10 MEQ TAB PO SCH ×2 (08:01→20:17)
[2021-08-03] MEDS: DOCUSATE NA 100 MG CAP PO SCH (08:01)
[2021-08-03] MEDS: CRANBERRY FRUIT EXTRACT 400 MG CAP PO SCH ×2 (08:02→20:16)
[2021-08-03] MEDS: ASCORBIC ACID 500 MG TABLET PO SCH (08:02)
[2021-08-03] MEDS: METOPROLOL XL 25 MG TAB PO SCH ×2 (08:02→20:16)
[2021-08-03] MEDS: FUROSEMIDE 40 MG TABLET PO SCH ×2 (08:03→16:26)
[2021-08-03] MEDS: acetaZOLAMIDE 250 MG TAB PO SCH ×2 (08:03→20:17)
[2021-08-03] MEDS: AMIODARONE HCL 200 MG TAB PO SCH (08:05)
[2021-08-03] MEDS: NYSTATIN PWDR 100000 UNIT/GM TOP SCH ×2 (09:43→20:00)
[2021-08-03] MEDS: COLLAGENASE 30 GM OINTMENT TOP SCH (09:43)
[2021-08-03 14:27] LABS: Protime INR 2.2
[2021-08-03] MEDS: WARFARIN SODIUM 4 MG TAB PO SCH (16:26)
[2021-08-03] MEDS: WARFARIN SODIUM 5 MG TAB PO SCH (16:26)
--- NOTE | 2021-08-03 17:31 | R.PN ---
PROGRESS NOTES ENCOUNTER DATE AND TIME: 08/03/2021 17:29 (CDT) NAME GRAZYNA GOMEZ DATE OF : 1975 DATE OF ADMISSION: 07/19/2021 13:44 (CDT) CHF Exacerbation, A-Flutter with RVR, resp failureCHIEF COMPLAINT: Debility, CHF exacerbation, extreme obesity. SUBJECTIVE: Pt denied any depression. Pt denied any Shortness of Breath. Hgb 9.8, WBC 4.3, prealbumin 9.6, K 3.5, K+ to 20 meq bid, UA loaded with bacteria, trace esterase bu t < 10,000 cfu. INR 2.2 On coumadin 9 mg daily. Ambulated total of 250'' with rollator and CGA. Wheelchair mobility 160' with standby assistance. VITAL SIGNS Temperature: 97.4 F SBP/DBP: 115/54 Pulse: 88 Resp: 16 MEDICATION ALLERGIES: No Known Drug Allergies (NKDA) ENVIRONMENTAL ALLERGIES: - Substance Allergies None Known - Other Allergies None Known NURSING: - Shower allowing shower PRECAUTIONS: - Fall Precaution SAFTY AND FALL ACTIVITIES OOB only with supervision THERAPIES: - Dietary and Nutrition Adequate Nutrition. Nutritional Education. Nutritional Supplements. - Occupational Therapy Cognitive Retraining. Visual Perceptual Training. - Speech Therapy Cognitive Training. Expressive Language Skills. Memory Strategies. Receptive Language Skills. Speech Intelligibility Training. PHYSICAL EXAM - Gen Alert and awake Lying in bed No apparent distress Oriented to: person, time, and place - Skin Stage II on left buttocks. - Eyes No abnormalities - ENMT No abnormalities - Neck No abnormalities No cervical adenopathy - CVS RRR - Chest Mildly decreased breath sounds bilaterally. - Resp No wheezing - Abd Soft - GI Non distended Deferred - No abnormalities - Ext Mild bilateral lower extremity edema. - MSK 4/5 weakness in both lower extremities. - Neuro No focal deficits - Psych No abnormalities ASSESSMENT: Pt. is a 46 yo Right-handed female.On 07/11/2021 she was admitted to [facility] with diagnosis CHF Exacerbation, A-Flutter with RVR, resp failure.Her impairment category is Cardiac 09 - Cardiac Disorders ().Pre-morbidly, Pt. was independent/mod-I in Locomotion, Social Cognition , Safety Awareness, Transfers Control, and Balance; and she had good Sphincter Control, Self-Care, Co mmunication, and Endurance.Currently, she has deficits of Locomotion, Safety Awareness, Balance, Sphi ncter Control, and Endurance.Pt. is now referred to [facility] for acute in-pa tient rehabilitation in order to maximize patient's functional independence in activities of daily li ving, strength, ROM, and mobility.- Rehab Goal Patient has realistic goal of being discharged at assistance level 7-Ind to reside at Home with Fami ly/Relatives. MDM/PLAN: - Physical Therapy Gait dysfunction - to improve, our physical therapists will perform initial evaluation of pt's statu s upon admission and devise an individualized program for Gait Training, and Wheel Chair mobility Need for home safety evaluation - to improve, our physical therapists will perform initial evaluatio n of pt's status upon admission and devise an individualized program for Home Evaluation Need in caregiver upon discharge - to improve, our physical therapists will perform initial evaluati on of pt's status upon admission and devise an individualized program for Caregiver Training New precaution - to improve, our physical therapists will perform initial evaluation of pt's status upon admission and devise an individualized program for Patient precaution education Edema - to improve, our physical therapists will perform initial evaluation of pt's status upon admi ssion and devise an individualized program for Elevation Training, and Lymphedema Therapy Poor balance - to improve, our physical therapists will perform initial evaluation of pt's status up on admission and devise an individualized program for Balance Training Poor endurance - to improve, our physical therapists will perform initial evaluation of pt's status upon admission and devise an individualized program for Endurance Training Weakness - to improve, our physical therapists will perform initial evaluation of pt's status upon a dmission and devise an individualized program for Aquatic Therapy, Neuromuscular Reeducation, and Str engthening Achieving independence - to improve, our physical therapists will perform initial evaluation of pt's status upon admission and devise an individualized program for Community Reintegration Activities - Occupational Therapy Need for patient care manager - to improve, our occupation therapists will perform initial evaluation of pt's status upon admission and devise an individualized program for Caregiver Training Weakness - to improve, our occupation therapists will perform initial evaluation of pt's status upon admission and devise an individualized program for Aquatic Therapy, Balance, Endurance, UE ROM, and UE strengthening - Other See attached MAR (Medication Administration Record) - Diet Type Continue Regular - Diet - Liquid Texture Continue Regular - Tube Feed Continue N/A - Fall Precaution SAFTY AND FALL - Diet - Solid Texture Continue Regular - Shower allowing shower FUNCTIONAL STATUS: UPDATED AT WEEKLY TEAM CONFERENCE - Bladder Same accident frequency: 7-Ind - No accidents in the past 7 days - Bowel Same accident frequency: 7-Ind - No accidents in the past 7 days - Walking Same score based on distance walked: 0(N/A) - Wheelchair Same score based on distance traveled: 0(N/A) FUNCTIONAL STATUS: - Self-Care A. Eating Ind B. Grooming Yasmin C. Bathing maxA D. Dressing - Upper modA E. Dressing - Lower maxA F. Toileting modA - Sphincter Control G. Bladder control Ashok H. Bowel control Ashok - Transfers Control I. Bed/Chair/Wheelchair maxA J. Toilet maxA K. Tub/Shower maxA - Locomotion L. Walk/Wheelchair (B) modA M. Stairs ADNO - Communication N. Comprehension (B) Ashok O. Expression (B) Ashok - Social Cognition P. Social Interaction Ind Q. Problem Solving Ashok R. Memory Ind - Endurance Poor - Balance Fair - Safety Awareness Fair QI SCORES: - Self-Care A. Eating 05-Setup or clean-up assistance B. Oral hygiene 02-Substantial/maximal assistance C. Toileting hygiene 01-Dependent E. Shower/bathe self 01-Dependent F. Upper body dressing 03-Partial/moderate assistance G. Lower body dressing 02-Substantial/maximal assistance H. Putting on/taking off footwear 88-Not attempted due to medical condition or safety concerns - Mobility A. Roll left and right 02-Substantial/maximal assistance B. Sit to lying 02-Substantial/maximal assistance C. Lying to sitting on side of bed 02-Substantial/maximal assistance D. Sit to stand 02-Substantial/maximal assistance E. Chair/[id number]-hm-[id number] transfer 02-Substantial/maximal assistance F. Toilet transfer 02-Substantial/maximal assistance G. Car transfer 88-Not attempted due to medical condition or safety concerns I. Walk 10 feet 88-Not attempted due to medical condition or safety concerns J. Walk 50 feet with two turns 88-Not attempted due to medical condition or safety concerns K. Walk 150 feet 88-Not attempted due to medical condition or safety concerns L. Walking 10 feet on uneven surfaces 88-Not attempted due to medical condition or safety concerns M. 1 step (curb) 88-Not attempted due to medical condition or safety concerns N. 4 steps 88-Not attempted due to medical condition or safety concerns O. 12 steps 88-Not attempted due to medical condition or safety concerns P. Picking up object 88-Not attempted due to medical condition or safety concerns R. Wheel 50 feet with two turns 88-Not attempted due to medical condition or safety concerns S. Wheel 150 feet 88-Not attempted due to medical condition or safety concerns - Bladder and Bowel Bladder continence Bowel continence - Endurance Fair - Balance Fair - Safety Awareness Fair CURRENT [facility]. DEFICITS: Self-Care, Mobility, Endurance, Balance, and Safety Awareness SIGNATURE PANEL: (CDT)
[2021-08-03] MEDS: MELATONIN 5 MG TABLET PO PRN (20:17)
[2021-08-04 07:14] LABS: Protime INR 2.2
[2021-08-04] MEDS: JUVEN PACKET PO SCH ×2 (08:00→19:42)
[2021-08-04] MEDS: ACETAMINOPHEN 325 MG TABLET PO PRN ×2 (08:27→19:42)
[2021-08-04] MEDS: LIDOCAINE 4% PATCH TOP SCH (08:27)
[2021-08-04] MEDS: AMIODARONE HCL 200 MG TAB PO SCH (08:28)
[2021-08-04] MEDS: POTASSIUM CL SA 10 MEQ TAB PO SCH ×2 (08:28→19:41)
[2021-08-04] MEDS: acetaZOLAMIDE 250 MG TAB PO SCH ×2 (08:29→19:42)
[2021-08-04] MEDS: ASCORBIC ACID 500 MG TABLET PO SCH (08:29)
[2021-08-04] MEDS: CRANBERRY FRUIT EXTRACT 400 MG CAP PO SCH ×2 (08:29→19:41)
[2021-08-04] MEDS: METOPROLOL XL 25 MG TAB PO SCH ×2 (08:29→19:41)
[2021-08-04] MEDS: FUROSEMIDE 40 MG TABLET PO SCH ×2 (08:30→16:30)
[2021-08-04] MEDS: MAGNESIUM OXIDE 400 MG TAB PO SCH ×2 (08:30→19:42)
[2021-08-04] MEDS: DOCUSATE NA 100 MG CAP PO SCH (08:30)
[2021-08-04] MEDS: ZINC SULFATE 220 MG CAP PO SCH (08:30)
[2021-08-04] MEDS: ENSURE HIGH PROTEIN 237 ML CAN PO SCH ×3 (08:31→19:42)
[2021-08-04] MEDS: NYSTATIN PWDR 100000 UNIT/GM TOP SCH ×2 (09:30→19:42)
[2021-08-04] MEDS: COLLAGENASE 30 GM OINTMENT TOP SCH (09:30)
[2021-08-04] MEDS: WARFARIN SODIUM 4 MG TAB PO SCH (16:30)
[2021-08-04] MEDS: WARFARIN SODIUM 5 MG TAB PO SCH (16:30)
[2021-08-04] MEDS: MELATONIN 5 MG TABLET PO PRN (19:42)
[2021-08-05 07:35] LABS: Protime INR 2.17
[2021-08-05] MEDS: JUVEN PACKET PO SCH ×2 (08:00→20:00)
[2021-08-05] MEDS: NYSTATIN PWDR 100000 UNIT/GM TOP SCH ×2 (08:00→21:01)
[2021-08-05] MEDS: COLLAGENASE 30 GM OINTMENT TOP SCH (08:00)
[2021-08-05] MEDS: LIDOCAINE 4% PATCH TOP SCH (08:32)
[2021-08-05] MEDS: CRANBERRY FRUIT EXTRACT 400 MG CAP PO SCH ×2 (08:32→21:00)
[2021-08-05] MEDS: DOCUSATE NA 100 MG CAP PO SCH (08:33)
[2021-08-05] MEDS: ZINC SULFATE 220 MG CAP PO SCH (08:33)
[2021-08-05] MEDS: ASCORBIC ACID 500 MG TABLET PO SCH (08:33)
[2021-08-05] MEDS: POTASSIUM CL SA 10 MEQ TAB PO SCH ×2 (08:33→21:00)
[2021-08-05] MEDS: MAGNESIUM OXIDE 400 MG TAB PO SCH ×2 (08:34→21:01)
[2021-08-05] MEDS: FUROSEMIDE 40 MG TABLET PO SCH ×2 (08:34→17:22)
[2021-08-05] MEDS: AMIODARONE HCL 200 MG TAB PO SCH (08:35)
[2021-08-05] MEDS: acetaZOLAMIDE 250 MG TAB PO SCH ×2 (09:54→21:01)
[2021-08-05] MEDS: METOPROLOL XL 25 MG TAB PO SCH ×2 (09:54→21:02)
[2021-08-05] MEDS: ENSURE HIGH PROTEIN 237 ML CAN PO SCH ×3 (09:55→21:02)
--- NOTE | 2021-08-05 17:03 | R.PN ---
PROGRESS NOTES ENCOUNTER DATE AND TIME: 08/05/2021 16:57 (CDT) NAME GRAZYNA GOMEZ DATE OF : 1975 DATE OF ADMISSION: 07/19/2021 13:44 (CDT) CHF Exacerbation, A-Flutter with RVR, resp failureCHIEF COMPLAINT: Debility, CHF exacerbation, extreme obesity. SUBJECTIVE: Pt denied any depression. Pt denied any Shortness of Breath. Hgb 9.8, WBC 4.3, prealbumin 9.6, K 3.5, K+ to 20 meq bid, UA loaded with bacteria, trace esterase bu t < 10,000 cfu. INR 2.17 On coumadin 9 mg daily. Ambulated total of 200'' with rollator and standby assistance. O2 sat dropped to 88% when off of O2. Recovered to >90% when on 2L of oxygen. Wheelchair mobility 160' with standby assistance. VITAL SIGNS Temperature: 97.1 F SBP/DBP: 109/63 Pulse: 87 Resp: 16 MEDICATION ALLERGIES: No Known Drug Allergies (NKDA) ENVIRONMENTAL ALLERGIES: - Substance Allergies None Known - Other Allergies None Known NURSING: - Shower allowing shower PRECAUTIONS: - Fall Precaution SAFTY AND FALL ACTIVITIES OOB only with supervision THERAPIES: - Dietary and Nutrition Adequate Nutrition. Nutritional Education. Nutritional Supplements. - Occupational Therapy Cognitive Retraining. Visual Perceptual Training. - Speech Therapy Cognitive Training. Expressive Language Skills. Memory Strategies. Receptive Language Skills. Speech Intelligibility Training. PHYSICAL EXAM - Gen Alert and awake Lying in bed No apparent distress Oriented to: person, time, and place - Skin Stage II on left buttocks. - Eyes No abnormalities - ENMT No abnormalities - Neck No abnormalities No cervical adenopathy - CVS RRR - Chest Mildly decreased breath sounds bilaterally. - Resp No wheezing - Abd Soft - GI Non distended Deferred - No abnormalities - Ext Mild bilateral lower extremity edema. - MSK 4/5 weakness in both lower extremities. - Neuro No focal deficits - Psych No abnormalities ASSESSMENT: Pt. is a 46 yo Right-handed female.On 07/11/2021 she was admitted to [facility] with diagnosis CHF Exacerbation, A-Flutter with RVR, resp failure.Her impairment category is Cardiac 09 - Cardiac Disorders ().Pre-morbidly, Pt. was independent/mod-I in Locomotion, Social Cognition , Safety Awareness, Transfers Control, and Balance; and she had good Sphincter Control, Self-Care, Co mmunication, and Endurance.Currently, she has deficits of Locomotion, Safety Awareness, Balance, Sphi ncter Control, and Endurance.Pt. is now referred to [facility] for acute in-pa tient rehabilitation in order to maximize patient's functional independence in activities of daily li ving, strength, ROM, and mobility.- Rehab Goal Patient has realistic goal of being discharged at assistance level 7-Ind to reside at Home with Fami ly/Relatives. MDM/PLAN: - Physical Therapy Gait dysfunction - to improve, our physical therapists will perform initial evaluation of pt's statu s upon admission and devise an individualized program for Gait Training, and Wheel Chair mobility Need for home safety evaluation - to improve, our physical therapists will perform initial evaluatio n of pt's status upon admission and devise an individualized program for Home Evaluation Need in caregiver upon discharge - to improve, our physical therapists will perform initial evaluati on of pt's status upon admission and devise an individualized program for Caregiver Training New precaution - to improve, our physical therapists will perform initial evaluation of pt's status upon admission and devise an individualized program for Patient precaution education Edema - to improve, our physical therapists will perform initial evaluation of pt's status upon admi ssion and devise an individualized program for Elevation Training, and Lymphedema Therapy Poor balance - to improve, our physical therapists will perform initial evaluation of pt's status up on admission and devise an individualized program for Balance Training Poor endurance - to improve, our physical therapists will perform initial evaluation of pt's status upon admission and devise an individualized program for Endurance Training Weakness - to improve, our physical therapists will perform initial evaluation of pt's status upon a dmission and devise an individualized program for Aquatic Therapy, Neuromuscular Reeducation, and Str engthening Achieving independence - to improve, our physical therapists will perform initial evaluation of pt's status upon admission and devise an individualized program for Community Reintegration Activities - Occupational Therapy Need for home health care provider - to improve, our occupation therapists will perform initial evaluation of pt's status upon admission and devise an individualized program for Caregiver Training Weakness - to improve, our occupation therapists will perform initial evaluation of pt's status upon admission and devise an individualized program for Aquatic Therapy, Balance, Endurance, UE ROM, and UE strengthening - Other See attached MAR (Medication Administration Record) - Diet Type Continue Regular - Diet - Liquid Texture Continue Regular - Tube Feed Continue N/A - Fall Precaution SAFTY AND FALL - Diet - Solid Texture Continue Regular - Shower allowing shower FUNCTIONAL STATUS: UPDATED AT WEEKLY TEAM CONFERENCE - Bladder Same accident frequency: 7-Ind - No accidents in the past 7 days - Bowel Same accident frequency: 7-Ind - No accidents in the past 7 days - Walking Same score based on distance walked: 0(N/A) - Wheelchair Same score based on distance traveled: 0(N/A) FUNCTIONAL STATUS: - Self-Care A. Eating Ind B. Grooming Yasmin C. Bathing maxA D. Dressing - Upper modA E. Dressing - Lower maxA F. Toileting modA - Sphincter Control G. Bladder control Ashok H. Bowel control Ashok - Transfers Control I. Bed/Chair/Wheelchair maxA J. Toilet maxA K. Tub/Shower maxA - Locomotion L. Walk/Wheelchair (B) modA M. Stairs ADNO - Communication N. Comprehension (B) Ashok O. Expression (B) Ashok - Social Cognition P. Social Interaction Ind Q. Problem Solving Ashok R. Memory Ind - Endurance Poor - Balance Fair - Safety Awareness Fair QI SCORES: - Self-Care A. Eating 05-Setup or clean-up assistance B. Oral hygiene 02-Substantial/maximal assistance C. Toileting hygiene 01-Dependent E. Shower/bathe self 01-Dependent F. Upper body dressing 03-Partial/moderate assistance G. Lower body dressing 02-Substantial/maximal assistance H. Putting on/taking off footwear 88-Not attempted due to medical condition or safety concerns - Mobility A. Roll left and right 02-Substantial/maximal assistance B. Sit to lying 02-Substantial/maximal assistance C. Lying to sitting on side of bed 02-Substantial/maximal assistance D. Sit to stand 02-Substantial/maximal assistance E. Chair/cfc-mv-wdged transfer 02-Substantial/maximal assistance F. Toilet transfer 02-Substantial/maximal assistance G. Car transfer 88-Not attempted due to medical condition or safety concerns I. Walk 10 feet 88-Not attempted due to medical condition or safety concerns J. Walk 50 feet with two turns 88-Not attempted due to medical condition or safety concerns K. Walk 150 feet 88-Not attempted due to medical condition or safety concerns L. Walking 10 feet on uneven surfaces 88-Not attempted due to medical condition or safety concerns M. 1 step (curb) 88-Not attempted due to medical condition or safety concerns N. 4 steps 88-Not attempted due to medical condition or safety concerns O. 12 steps 88-Not attempted due to medical condition or safety concerns P. Picking up object 88-Not attempted due to medical condition or safety concerns R. Wheel 50 feet with two turns 88-Not attempted due to medical condition or safety concerns S. Wheel 150 feet 88-Not attempted due to medical condition or safety concerns - Bladder and Bowel Bladder continence Bowel continence - Endurance Fair - Balance Fair - Safety Awareness Fair CURRENT [facility]. DEFICITS: Self-Care, Mobility, Endurance, Balance, and Safety Awareness SIGNATURE PANEL: (CDT)
[2021-08-05] MEDS: WARFARIN SODIUM 5 MG TAB PO SCH (17:22)
[2021-08-05] MEDS: WARFARIN SODIUM 4 MG TAB PO SCH (17:22)
[2021-08-05] MEDS: methocarbamoL 500 MG TAB PO PRN (17:26)
[2021-08-05] MEDS: MELATONIN 5 MG TABLET PO PRN (21:01)
[2021-08-06 05:58] LABS: Protime INR 2.11
[2021-08-06 06:09] LABS: BUN Blood Urea Nitrogen 10 mg/dL (7-18); Bicarbonate 29 mmol/L (21-32); Glucose Level 107 mg/dL (74-106); Potassium 3.8 mmol/L (3.5-5.1); Sodium Level 142 mmol/L (136-145)
[2021-08-06] MEDS: JUVEN PACKET PO SCH ×2 (08:00→20:00)
[2021-08-06] MEDS: NYSTATIN PWDR 100000 UNIT/GM TOP SCH ×2 (08:00→20:16)
[2021-08-06] MEDS: COLLAGENASE 30 GM OINTMENT TOP SCH (08:00)
[2021-08-06] MEDS: LIDOCAINE 4% PATCH TOP SCH (08:47)
[2021-08-06] MEDS: DOCUSATE NA 100 MG CAP PO SCH (08:49)
[2021-08-06] MEDS: ASCORBIC ACID 500 MG TABLET PO SCH (08:49)
[2021-08-06] MEDS: CRANBERRY FRUIT EXTRACT 400 MG CAP PO SCH ×2 (08:49→20:14)
[2021-08-06] MEDS: POTASSIUM CL SA 10 MEQ TAB PO SCH ×2 (08:49→20:14)
[2021-08-06] MEDS: FUROSEMIDE 40 MG TABLET PO SCH ×2 (08:49→17:20)
[2021-08-06] MEDS: ZINC SULFATE 220 MG CAP PO SCH (08:50)
[2021-08-06] MEDS: MAGNESIUM OXIDE 400 MG TAB PO SCH ×2 (08:50→20:15)
[2021-08-06] MEDS: acetaZOLAMIDE 250 MG TAB PO SCH ×2 (08:50→20:15)
[2021-08-06] MEDS: AMIODARONE HCL 200 MG TAB PO SCH (08:51)
[2021-08-06] MEDS: ACETAMINOPHEN 325 MG TABLET PO PRN (08:54)
[2021-08-06] MEDS: ENSURE HIGH PROTEIN 237 ML CAN PO SCH ×3 (09:00→20:16)
[2021-08-06] MEDS: METOPROLOL XL 25 MG TAB PO SCH ×2 (10:13→20:16)
[2021-08-06] MEDS: WARFARIN SODIUM 5 MG TAB PO SCH (17:20)
[2021-08-06] MEDS: WARFARIN SODIUM 4 MG TAB PO SCH (17:20)
--- NOTE | 2021-08-06 19:59 | R.PN ---
PROGRESS NOTES ENCOUNTER DATE AND TIME: 08/06/2021 19:54 (CDT) NAME GRAZYNA GOMEZ DATE OF : 1975 DATE OF ADMISSION: 07/19/2021 13:44 (CDT) CHF Exacerbation, A-Flutter with RVR, resp failureCHIEF COMPLAINT: Debility, CHF exacerbation, extreme obesity. SUBJECTIVE: Pt denied any depression. Pt denied any Shortness of Breath. Hgb 9.8, WBC 4.3, prealbumin 9.6, K 3.8, UA loaded with bacteria, trace esterase but < 10,000 cfu. IN R 2.11 On coumadin 9 mg daily. Ambulated total of 126'' with rollator and standby assistance. Mobilized wheelchair 80' with modified independence. VITAL SIGNS Temperature: 97.4 F SBP/DBP: 142/92 Pulse: 94 Resp: 16 MEDICATION ALLERGIES: No Known Drug Allergies (NKDA) ENVIRONMENTAL ALLERGIES: - Substance Allergies None Known - Other Allergies None Known NURSING: - Shower allowing shower PRECAUTIONS: - Fall Precaution SAFTY AND FALL ACTIVITIES OOB only with supervision THERAPIES: - Dietary and Nutrition Adequate Nutrition. Nutritional Education. Nutritional Supplements. - Occupational Therapy Cognitive Retraining. Visual Perceptual Training. - Speech Therapy Cognitive Training. Expressive Language Skills. Memory Strategies. Receptive Language Skills. Speech Intelligibility Training. PHYSICAL EXAM - Gen Alert and awake Lying in bed No apparent distress Oriented to: person, time, and place - Skin Stage II on left buttocks. - Eyes No abnormalities - ENMT No abnormalities - Neck No abnormalities No cervical adenopathy - CVS RRR - Chest Mildly decreased breath sounds bilaterally. - Resp No wheezing - Abd Soft - GI Non distended Deferred - No abnormalities - Ext Mild bilateral lower extremity edema. - MSK 4/5 weakness in both lower extremities. - Neuro No focal deficits - Psych No abnormalities ASSESSMENT: Pt. is a 46 yo Right-handed female.On 07/11/2021 she was admitted to [facility] with diagnosis CHF Exacerbation, A-Flutter with RVR, resp failure.Her impairment category is Cardiac 09 - Cardiac Disorders ().Pre-morbidly, Pt. was independent/mod-I in Locomotion, Social Cognition , Safety Awareness, Transfers Control, and Balance; and she had good Sphincter Control, Self-Care, Co mmunication, and Endurance.Currently, she has deficits of Locomotion, Safety Awareness, Balance, Sphi ncter Control, and Endurance.Pt. is now referred to [facility] for acute in-pa tient rehabilitation in order to maximize patient's functional independence in activities of daily li ving, strength, ROM, and mobility.- Rehab Goal Patient has realistic goal of being discharged at assistance level 7-Ind to reside at Home with Fami ly/Relatives. MDM/PLAN: - Physical Therapy Gait dysfunction - to improve, our physical therapists will perform initial evaluation of pt's statu s upon admission and devise an individualized program for Gait Training, and Wheel Chair mobility Need for home safety evaluation - to improve, our physical therapists will perform initial evaluatio n of pt's status upon admission and devise an individualized program for Home Evaluation Need in caregiver upon discharge - to improve, our physical therapists will perform initial evaluati on of pt's status upon admission and devise an individualized program for Caregiver Training New precaution - to improve, our physical therapists will perform initial evaluation of pt's status upon admission and devise an individualized program for Patient precaution education Edema - to improve, our physical therapists will perform initial evaluation of pt's status upon admi ssion and devise an individualized program for Elevation Training, and Lymphedema Therapy Poor balance - to improve, our physical therapists will perform initial evaluation of pt's status up on admission and devise an individualized program for Balance Training Poor endurance - to improve, our physical therapists will perform initial evaluation of pt's status upon admission and devise an individualized program for Endurance Training Weakness - to improve, our physical therapists will perform initial evaluation of pt's status upon a dmission and devise an individualized program for Aquatic Therapy, Neuromuscular Reeducation, and Str engthening Achieving independence - to improve, our physical therapists will perform initial evaluation of pt's status upon admission and devise an individualized program for Community Reintegration Activities - Occupational Therapy Need for childcare administrator - to improve, our occupation therapists will perform initial evaluation of pt's status upon admission and devise an individualized program for Caregiver Training Weakness - to improve, our occupation therapists will perform initial evaluation of pt's status upon admission and devise an individualized program for Aquatic Therapy, Balance, Endurance, UE ROM, and UE strengthening - Other See attached MAR (Medication Administration Record) - Diet Type Continue Regular - Diet - Liquid Texture Continue Regular - Tube Feed Continue N/A - Fall Precaution SAFTY AND FALL - Diet - Solid Texture Continue Regular - Shower allowing shower FUNCTIONAL STATUS: UPDATED AT WEEKLY TEAM CONFERENCE - Bladder Same accident frequency: 7-Ind - No accidents in the past 7 days - Bowel Same accident frequency: 7-Ind - No accidents in the past 7 days - Walking Same score based on distance walked: 0(N/A) - Wheelchair Same score based on distance traveled: 0(N/A) FUNCTIONAL STATUS: - Self-Care A. Eating Ind B. Grooming Yasmin C. Bathing maxA D. Dressing - Upper modA E. Dressing - Lower maxA F. Toileting modA - Sphincter Control G. Bladder control Ashok H. Bowel control Ashok - Transfers Control I. Bed/Chair/Wheelchair maxA J. Toilet maxA K. Tub/Shower maxA - Locomotion L. Walk/Wheelchair (B) modA M. Stairs ADNO - Communication N. Comprehension (B) Ashok O. Expression (B) Ashok - Social Cognition P. Social Interaction Ind Q. Problem Solving Ashok R. Memory Ind - Endurance Poor - Balance Fair - Safety Awareness Fair QI SCORES: - Self-Care A. Eating 05-Setup or clean-up assistance B. Oral hygiene 02-Substantial/maximal assistance C. Toileting hygiene 01-Dependent E. Shower/bathe self 01-Dependent F. Upper body dressing 03-Partial/moderate assistance G. Lower body dressing 02-Substantial/maximal assistance H. Putting on/taking off footwear 88-Not attempted due to medical condition or safety concerns - Mobility A. Roll left and right 02-Substantial/maximal assistance B. Sit to lying 02-Substantial/maximal assistance C. Lying to sitting on side of bed 02-Substantial/maximal assistance D. Sit to stand 02-Substantial/maximal assistance E. Chair/bti-re-mmzfw transfer 02-Substantial/maximal assistance F. Toilet transfer 02-Substantial/maximal assistance G. Car transfer 88-Not attempted due to medical condition or safety concerns I. Walk 10 feet 88-Not attempted due to medical condition or safety concerns J. Walk 50 feet with two turns 88-Not attempted due to medical condition or safety concerns K. Walk 150 feet 88-Not attempted due to medical condition or safety concerns L. Walking 10 feet on uneven surfaces 88-Not attempted due to medical condition or safety concerns M. 1 step (curb) 88-Not attempted due to medical condition or safety concerns N. 4 steps 88-Not attempted due to medical condition or safety concerns O. 12 steps 88-Not attempted due to medical condition or safety concerns P. Picking up object 88-Not attempted due to medical condition or safety concerns R. Wheel 50 feet with two turns 88-Not attempted due to medical condition or safety concerns S. Wheel 150 feet 88-Not attempted due to medical condition or safety concerns - Bladder and Bowel Bladder continence Bowel continence - Endurance Fair - Balance Fair - Safety Awareness Fair CURRENT [facility]. DEFICITS: Self-Care, Mobility, Endurance, Balance, and Safety Awareness SIGNATURE PANEL: (CDT)
[2021-08-06] MEDS: MELATONIN 5 MG TABLET PO PRN (20:15)
[2021-08-06] MEDS: HYDROCODONE/APAP 5/325 MG TAB PO PRN (20:15)
[2021-08-06] MEDS: methocarbamoL 500 MG TAB PO PRN (20:27)
[2021-08-07] MEDS: JUVEN PACKET PO SCH ×2 (08:00→20:00)
[2021-08-07] MEDS: ACETAMINOPHEN 325 MG TABLET PO PRN (08:01)
[2021-08-07] MEDS: MAGNESIUM OXIDE 400 MG TAB PO SCH ×2 (08:03→20:00)
[2021-08-07] MEDS: FUROSEMIDE 40 MG TABLET PO SCH ×2 (08:03→16:04)
[2021-08-07] MEDS: DOCUSATE NA 100 MG CAP PO SCH (08:04)
[2021-08-07] MEDS: POTASSIUM CL SA 10 MEQ TAB PO SCH ×2 (08:04→20:57)
[2021-08-07] MEDS: METOPROLOL XL 25 MG TAB PO SCH ×2 (08:04→20:58)
[2021-08-07] MEDS: ASCORBIC ACID 500 MG TABLET PO SCH (08:04)
[2021-08-07] MEDS: ZINC SULFATE 220 MG CAP PO SCH (08:04)
[2021-08-07] MEDS: AMIODARONE HCL 200 MG TAB PO SCH (08:04)
[2021-08-07] MEDS: acetaZOLAMIDE 250 MG TAB PO SCH ×2 (08:05→20:57)
[2021-08-07] MEDS: ENSURE HIGH PROTEIN 237 ML CAN PO SCH ×3 (08:05→20:58)
[2021-08-07] MEDS: CRANBERRY EXTRACT 400 MG CAPSULE PO SCH ×3 (08:55→20:00)
[2021-08-07] MEDS: LIDOCAINE 4% PATCH TOP SCH (08:56)
[2021-08-07] MEDS: NYSTATIN PWDR 100000 UNIT/GM TOP SCH ×2 (08:58→20:00)
[2021-08-07] MEDS: COLLAGENASE 30 GM OINTMENT TOP SCH (08:58)
[2021-08-07] MEDS: ONDANSETRON 4 MG (ODT) TAB PO PRN (11:18)
[2021-08-07] MEDS: WARFARIN SODIUM 5 MG TAB PO SCH (16:04)
[2021-08-07] MEDS: WARFARIN SODIUM 4 MG TAB PO SCH (16:04)
--- NOTE | 2021-08-07 16:25 | R.PN ---
PROGRESS NOTES ENCOUNTER DATE AND TIME: 08/07/2021 16:21 (CDT) NAME GRAZYNA GOMEZ DATE OF : 1975 DATE OF ADMISSION: 07/19/2021 13:44 (CDT) CHF Exacerbation, A-Flutter with RVR, resp failureCHIEF COMPLAINT: Debility, CHF exacerbation, extreme obesity. SUBJECTIVE: Pt denied any depression. Pt denied any Shortness of Breath. Hgb 9.8, WBC 4.3, prealbumin 9.6, K 3.8, UA loaded with bacteria, trace esterase but < 10,000 cfu. IN R 2.11 On coumadin 9 mg daily. Ambulated total of 120'' with rollator and modified independence. She had mild nausea with ambulation . O2 sat 94%. Mobilized wheelchair 80' with modified independence. VITAL SIGNS Temperature: 97.4 F SBP/DBP: 118/70 Pulse: 88 Resp: 16 MEDICATION ALLERGIES: No Known Drug Allergies (NKDA) ENVIRONMENTAL ALLERGIES: - Substance Allergies None Known - Other Allergies None Known NURSING: - Shower allowing shower PRECAUTIONS: - Fall Precaution SAFTY AND FALL ACTIVITIES OOB only with supervision THERAPIES: - Dietary and Nutrition Adequate Nutrition. Nutritional Education. Nutritional Supplements. - Occupational Therapy Cognitive Retraining. Visual Perceptual Training. - Speech Therapy Cognitive Training. Expressive Language Skills. Memory Strategies. Receptive Language Skills. Speech Intelligibility Training. PHYSICAL EXAM - Gen Alert and awake Lying in bed No apparent distress Oriented to: person, time, and place - Skin Stage II on left buttocks. - Eyes No abnormalities - ENMT No abnormalities - Neck No abnormalities No cervical adenopathy - CVS RRR - Chest Mildly decreased breath sounds bilaterally. - Resp No wheezing - Abd Soft - GI Non distended Deferred - No abnormalities - Ext Mild bilateral lower extremity edema. - MSK 4/5 weakness in both lower extremities. - Neuro No focal deficits - Psych No abnormalities ASSESSMENT: Pt. is a 46 yo Right-handed female.On 07/11/2021 she was admitted to [facility] with diagnosis CHF Exacerbation, A-Flutter with RVR, resp failure.Her impairment category is Cardiac 09 - Cardiac Disorders ().Pre-morbidly, Pt. was independent/mod-I in Locomotion, Social Cognition , Safety Awareness, Transfers Control, and Balance; and she had good Sphincter Control, Self-Care, Co mmunication, and Endurance.Currently, she has deficits of Locomotion, Safety Awareness, Balance, Sphi ncter Control, and Endurance.Pt. is now referred to [facility] for acute in-pa tient rehabilitation in order to maximize patient's functional independence in activities of daily li ving, strength, ROM, and mobility.- Rehab Goal Patient has realistic goal of being discharged at assistance level 7-Ind to reside at Home with Fami ly/Relatives. MDM/PLAN: - Physical Therapy Gait dysfunction - to improve, our physical therapists will perform initial evaluation of pt's statu s upon admission and devise an individualized program for Gait Training, and Wheel Chair mobility Need for home safety evaluation - to improve, our physical therapists will perform initial evaluatio n of pt's status upon admission and devise an individualized program for Home Evaluation Need in caregiver upon discharge - to improve, our physical therapists will perform initial evaluati on of pt's status upon admission and devise an individualized program for Caregiver Training New precaution - to improve, our physical therapists will perform initial evaluation of pt's status upon admission and devise an individualized program for Patient precaution education Edema - to improve, our physical therapists will perform initial evaluation of pt's status upon admi ssion and devise an individualized program for Elevation Training, and Lymphedema Therapy Poor balance - to improve, our physical therapists will perform initial evaluation of pt's status up on admission and devise an individualized program for Balance Training Poor endurance - to improve, our physical therapists will perform initial evaluation of pt's status upon admission and devise an individualized program for Endurance Training Weakness - to improve, our physical therapists will perform initial evaluation of pt's status upon a dmission and devise an individualized program for Aquatic Therapy, Neuromuscular Reeducation, and Str engthening Achieving independence - to improve, our physical therapists will perform initial evaluation of pt's status upon admission and devise an individualized program for Community Reintegration Activities - Occupational Therapy Need for transitional care liaison - to improve, our occupation therapists will perform initial evaluation of pt's status upon admission and devise an individualized program for Caregiver Training Weakness - to improve, our occupation therapists will perform initial evaluation of pt's status upon admission and devise an individualized program for Aquatic Therapy, Balance, Endurance, UE ROM, and UE strengthening - Other See attached MAR (Medication Administration Record) - Diet Type Continue Regular - Diet - Liquid Texture Continue Regular - Tube Feed Continue N/A - Fall Precaution SAFTY AND FALL - Diet - Solid Texture Continue Regular - Shower allowing shower FUNCTIONAL STATUS: UPDATED AT WEEKLY TEAM CONFERENCE - Bladder Same accident frequency: 7-Ind - No accidents in the past 7 days - Bowel Same accident frequency: 7-Ind - No accidents in the past 7 days - Walking Same score based on distance walked: 0(N/A) - Wheelchair Same score based on distance traveled: 0(N/A) FUNCTIONAL STATUS: - Self-Care A. Eating Ind B. Grooming Yasmin C. Bathing maxA D. Dressing - Upper modA E. Dressing - Lower maxA F. Toileting modA - Sphincter Control G. Bladder control Ashok H. Bowel control Ashok - Transfers Control I. Bed/Chair/Wheelchair maxA J. Toilet maxA K. Tub/Shower maxA - Locomotion L. Walk/Wheelchair (B) modA M. Stairs ADNO - Communication N. Comprehension (B) Ashok O. Expression (B) Ashok - Social Cognition P. Social Interaction Ind Q. Problem Solving Ashok R. Memory Ind - Endurance Poor - Balance Fair - Safety Awareness Fair QI SCORES: - Self-Care A. Eating 05-Setup or clean-up assistance B. Oral hygiene 02-Substantial/maximal assistance C. Toileting hygiene 01-Dependent E. Shower/bathe self 01-Dependent F. Upper body dressing 03-Partial/moderate assistance G. Lower body dressing 02-Substantial/maximal assistance H. Putting on/taking off footwear 88-Not attempted due to medical condition or safety concerns - Mobility A. Roll left and right 02-Substantial/maximal assistance B. Sit to lying 02-Substantial/maximal assistance C. Lying to sitting on side of bed 02-Substantial/maximal assistance D. Sit to stand 02-Substantial/maximal assistance E. Chair/guf-lu-kexnn transfer 02-Substantial/maximal assistance F. Toilet transfer 02-Substantial/maximal assistance G. Car transfer 88-Not attempted due to medical condition or safety concerns I. Walk 10 feet 88-Not attempted due to medical condition or safety concerns J. Walk 50 feet with two turns 88-Not attempted due to medical condition or safety concerns K. Walk 150 feet 88-Not attempted due to medical condition or safety concerns L. Walking 10 feet on uneven surfaces 88-Not attempted due to medical condition or safety concerns M. 1 step (curb) 88-Not attempted due to medical condition or safety concerns N. 4 steps 88-Not attempted due to medical condition or safety concerns O. 12 steps 88-Not attempted due to medical condition or safety concerns P. Picking up object 88-Not attempted due to medical condition or safety concerns R. Wheel 50 feet with two turns 88-Not attempted due to medical condition or safety concerns S. Wheel 150 feet 88-Not attempted due to medical condition or safety concerns - Bladder and Bowel Bladder continence Bowel continence - Endurance Fair - Balance Fair - Safety Awareness Fair CURRENT [facility]. DEFICITS: Self-Care, Mobility, Endurance, Balance, and Safety Awareness SIGNATURE PANEL: (CDT)
[2021-08-07] MEDS: MELATONIN 5 MG TABLET PO PRN (20:57)
[2021-08-07 21:43] VITALS: O2SAT 99
[2021-08-07] MEDS ORDERED: CRANBERRY FRUIT EXTRACT 400 MG CAP ONE (23:00)
[2021-08-08 06:19] LABS: Protime INR 2.35
[2021-08-08] MEDS: LIDOCAINE 4% PATCH TOP SCH (07:46)
[2021-08-08] MEDS: CRANBERRY EXTRACT 400 MG CAPSULE PO SCH (07:47)
[2021-08-08] MEDS: ACETAMINOPHEN 325 MG TABLET PO PRN (07:47)
[2021-08-08] MEDS: ASCORBIC ACID 500 MG TABLET PO SCH (07:47)
[2021-08-08] MEDS: ZINC SULFATE 220 MG CAP PO SCH (07:48)
[2021-08-08] MEDS: POTASSIUM CL SA 10 MEQ TAB PO SCH (07:48)
[2021-08-08] MEDS: MAGNESIUM OXIDE 400 MG TAB PO SCH (07:48)
[2021-08-08] MEDS: FUROSEMIDE 40 MG TABLET PO SCH (07:48)
[2021-08-08] MEDS: AMIODARONE HCL 200 MG TAB PO SCH (07:48)
[2021-08-08] MEDS: DOCUSATE NA 100 MG CAP PO SCH (07:48)
[2021-08-08] MEDS: acetaZOLAMIDE 250 MG TAB PO SCH (07:48)
[2021-08-08] MEDS: METOPROLOL XL 25 MG TAB PO SCH (07:49)
[2021-08-08 07:50] VITALS: BP 103/59
[2021-08-08] MEDS: ENSURE HIGH PROTEIN 237 ML CAN PO SCH ×2 (07:50→13:28)
[2021-08-08] MEDS: JUVEN PACKET PO SCH (08:00)
[2021-08-08 08:28] VITALS: TEMP 97
[2021-08-08] MEDS: NYSTATIN PWDR 100000 UNIT/GM TOP SCH (09:37)
[2021-08-08] MEDS: COLLAGENASE 30 GM OINTMENT TOP SCH (09:37)
--- NOTE | 2021-08-08 20:54 | R.PN ---
PROGRESS NOTES ENCOUNTER DATE AND TIME: 08/08/2021 20:48 (CDT) NAME GRAZYNA GOMEZ DATE OF : 1975 DATE OF ADMISSION: 07/19/2021 13:44 (CDT) CHF Exacerbation, A-Flutter with RVR, resp failureCHIEF COMPLAINT: Debility, CHF exacerbation, extreme obesity. SUBJECTIVE: Pt denied any depression. Pt denied any Shortness of Breath. Mobilized wheelchair 200' with modified independence. INR 2.35. VITAL SIGNS Temperature: 97.2 F SBP/DBP: 103/59 Pulse: 88 Resp: 16 MEDICATION ALLERGIES: No Known Drug Allergies (NKDA) ENVIRONMENTAL ALLERGIES: - Substance Allergies None Known - Other Allergies None Known NURSING: - Shower allowing shower PRECAUTIONS: - Fall Precaution SAFTY AND FALL ACTIVITIES OOB only with supervision THERAPIES: - Dietary and Nutrition Adequate Nutrition. Nutritional Education. Nutritional Supplements. - Occupational Therapy Cognitive Retraining. Visual Perceptual Training. - Speech Therapy Cognitive Training. Expressive Language Skills. Memory Strategies. Receptive Language Skills. Speech Intelligibility Training. PHYSICAL EXAM - Gen Alert and awake Lying in bed No apparent distress Oriented to: person, time, and place - Skin Stage II on left buttocks. - Eyes No abnormalities - ENMT No abnormalities - Neck No abnormalities No cervical adenopathy - CVS RRR - Chest Mildly decreased breath sounds bilaterally. - Resp No wheezing - Abd Soft - GI Non distended Deferred - No abnormalities - Ext Mild bilateral lower extremity edema. - MSK 4/5 weakness in both lower extremities. - Neuro No focal deficits - Psych No abnormalities ASSESSMENT: Pt. is a 46 yo Right-handed female.On 07/11/2021 she was admitted to [facility] with diagnosis CHF Exacerbation, A-Flutter with RVR, resp failure.Her impairment category is Cardiac 09 - Cardiac Disorders ().Pre-morbidly, Pt. was independent/mod-I in Locomotion, Social Cognition , Safety Awareness, Transfers Control, and Balance; and she had good Sphincter Control, Self-Care, Co mmunication, and Endurance.Currently, she has deficits of Locomotion, Safety Awareness, Balance, Sphi ncter Control, and Endurance.Pt. is now referred to [facility] for acute in-pa tient rehabilitation in order to maximize patient's functional independence in activities of daily li ving, strength, ROM, and mobility.- Rehab Goal Patient has realistic goal of being discharged at assistance level 7-Ind to reside at Home with Fami ly/Relatives. MDM/PLAN: - Physical Therapy Gait dysfunction - to improve, our physical therapists will perform initial evaluation of pt's statu s upon admission and devise an individualized program for Gait Training, and Wheel Chair mobility Need for home safety evaluation - to improve, our physical therapists will perform initial evaluatio n of pt's status upon admission and devise an individualized program for Home Evaluation Need in caregiver upon discharge - to improve, our physical therapists will perform initial evaluati on of pt's status upon admission and devise an individualized program for Caregiver Training New precaution - to improve, our physical therapists will perform initial evaluation of pt's status upon admission and devise an individualized program for Patient precaution education Edema - to improve, our physical therapists will perform initial evaluation of pt's status upon admi ssion and devise an individualized program for Elevation Training, and Lymphedema Therapy Poor balance - to improve, our physical therapists will perform initial evaluation of pt's status up on admission and devise an individualized program for Balance Training Poor endurance - to improve, our physical therapists will perform initial evaluation of pt's status upon admission and devise an individualized program for Endurance Training Weakness - to improve, our physical therapists will perform initial evaluation of pt's status upon a dmission and devise an individualized program for Aquatic Therapy, Neuromuscular Reeducation, and Str engthening Achieving independence - to improve, our physical therapists will perform initial evaluation of pt's status upon admission and devise an individualized program for Community Reintegration Activities - Occupational Therapy 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 - to improve, our occupation therapists will perform initial evaluation of pt's status upon admission and devise an individualized program for Caregiver Training Weakness - to improve, our occupation therapists will perform initial evaluation of pt's status upon admission and devise an individualized program for Aquatic Therapy, Balance, Endurance, UE ROM, and UE strengthening - Other See attached MAR (Medication Administration Record) - Diet Type Continue Regular - Diet - Liquid Texture Continue Regular - Tube Feed Continue N/A - Fall Precaution SAFTY AND FALL - Diet - Solid Texture Continue Regular - Shower allowing shower FUNCTIONAL STATUS: UPDATED AT WEEKLY TEAM CONFERENCE - Bladder Same accident frequency: 7-Ind - No accidents in the past 7 days - Bowel Same accident frequency: 7-Ind - No accidents in the past 7 days - Walking Same score based on distance walked: 0(N/A) - Wheelchair Same score based on distance traveled: 0(N/A) FUNCTIONAL STATUS: - Self-Care A. Eating Ind B. Grooming Yasmin C. Bathing maxA D. Dressing - Upper modA E. Dressing - Lower maxA F. Toileting modA - Sphincter Control G. Bladder control Ashok H. Bowel control Ashok - Transfers Control I. Bed/Chair/Wheelchair maxA J. Toilet maxA K. Tub/Shower maxA - Locomotion L. Walk/Wheelchair (B) modA M. Stairs ADNO - Communication N. Comprehension (B) Ashok O. Expression (B) Ashok - Social Cognition P. Social Interaction Ind Q. Problem Solving Ashok R. Memory Ind - Endurance Poor - Balance Fair - Safety Awareness Fair QI SCORES: - Self-Care A. Eating 05-Setup or clean-up assistance B. Oral hygiene 02-Substantial/maximal assistance C. Toileting hygiene 01-Dependent E. Shower/bathe self 01-Dependent F. Upper body dressing 03-Partial/moderate assistance G. Lower body dressing 02-Substantial/maximal assistance H. Putting on/taking off footwear 88-Not attempted due to medical condition or safety concerns - Mobility A. Roll left and right 02-Substantial/maximal assistance B. Sit to lying 02-Substantial/maximal assistance C. Lying to sitting on side of bed 02-Substantial/maximal assistance D. Sit to stand 02-Substantial/maximal assistance E. Chair/nuj-ev-cqobd transfer 02-Substantial/maximal assistance F. Toilet transfer 02-Substantial/maximal assistance G. Car transfer 88-Not attempted due to medical condition or safety concerns I. Walk 10 feet 88-Not attempted due to medical condition or safety concerns J. Walk 50 feet with two turns 88-Not attempted due to medical condition or safety concerns K. Walk 150 feet 88-Not attempted due to medical condition or safety concerns L. Walking 10 feet on uneven surfaces 88-Not attempted due to medical condition or safety concerns M. 1 step (curb) 88-Not attempted due to medical condition or safety concerns N. 4 steps 88-Not attempted due to medical condition or safety concerns O. 12 steps 88-Not attempted due to medical condition or safety concerns P. Picking up object 88-Not attempted due to medical condition or safety concerns R. Wheel 50 feet with two turns 88-Not attempted due to medical condition or safety concerns S. Wheel 150 feet 88-Not attempted due to medical condition or safety concerns - Bladder and Bowel Bladder continence Bowel continence - Endurance Fair - Balance Fair - Safety Awareness Fair CURRENT [facility]. DEFICITS: Self-Care, Mobility, Endurance, Balance, and Safety Awareness SIGNATURE PANEL: (CDT)
--- NOTE | 2021-08-09 13:52 | R.DS ---
DISCHARGE SUMMARY FACILITY [facility] MR# [id number] NAME GRAZYNA GOMEZ ADDRESS [address] [place] [address] [address] [id number] PHONE DATE OF 1975 AGE 46 SSN# [id number] GENDER Female MARITAL STATUS Single (Never ) ENCOUNTER PHYSICIAN Dr. Eulogio Garcia M.D. REFERRING DOCTOR TERRA STACK MD REFERRING FACILITY [facility] PRIMARY CARE PHYSICIAN TERRA STACK MD DISCHARGE DIAGNOSIS: - Cardiac 09 - Cardiac Disorders () CHF Exacerbation, A-Flutter with RVR, resp failure. DATE OF ADMISSION 07/19/2021 13:44 (CDT) MEDICATION ALLERGIES: No Known Drug Allergies (NKDA) ENVIRONMENTAL ALLERGIES: - Substance Allergies None Known - Other Allergies None Known DISCHARGE MEDICATIONS: Other- ContinueSee attached MAR (Medication Administration Record). NURSING: - Shower allowing shower PRECAUTIONS: - Fall Precaution SAFTY AND FALL ACTIVITIES OOB only with supervision THERAPIES: - Dietary and Nutrition Adequate Nutrition Nutritional Education Nutritional Supplements - Occupational Therapy Cognitive Retraining Visual Perceptual Training - Speech Therapy Cognitive Training Expressive Language Skills Memory Strategies Receptive Language Skills Speech Intelligibility Training HISTORY OF PRESENT ILLNESS: Pt. is a 46 yo Right-handed female.On 07/11/2021 she was admitted to [facility] with diagnosis CHF Exacerbation, A-Flutter with RVR, resp failure.Her impairment category is Cardiac 09 - Cardiac Disorders ().Pre-morbidly, Pt. was independent/mod-I in Locomotion, Social Cognition , Safety Awareness, Transfers Control, and Balance; and she had good Sphincter Control, Self-Care, Co mmunication, and Endurance.Currently, she has deficits of Locomotion, Safety Awareness, Balance, Sphi ncter Control, and Endurance.Pt. is now referred to [facility] for acute in-pa tient rehabilitation in order to maximize patient's functional independence in activities of daily li ving, strength, ROM, and mobility.- Rehab Goal Patient has realistic goal of being discharged at assistance level 7-Ind to reside at Home with Fami ly/Relatives. DIET - LIQUID TEXTURE: On 07/16/2021 Pt was upgraded to Regular Diet - Liquid Texture. DIET - SOLID TEXTURE: On 07/16/2021 Pt was upgraded to Regular Diet - Solid Texture. DIET TYPE: On 07/16/2021 Pt was upgraded to Regular Diet Type. FALL PRECAUTION: On 07/16/2021 the following precautions were added for the patient: Fall Precaution - SAFTY AND FALL. On 07/19/2021 the following precautions were added for the patient: Fall Precaution - SAFTY AND FALL . On 07/23/2021 the following precautions were removed for the patient: Fall Precaution - SAFTY AND FA LL. On 07/24/2021 the following precautions were added for the patient: Fall Precaution - SAFTY AND FALL . The following precautions were removed for the patient: Fall Precaution - SAFTY AND FALL, and Fall Pr ecaution - SAFTY AND FALL. TUBE FEED: On 07/16/2021 Pt was changed to N/A Tube Feed. DISCHARGE PHYSICAL EXAM - Gen Alert and awake Lying in bed No apparent distress Oriented to: person, time, and place - Skin Stage II on left buttocks. - Eyes No abnormalities - ENMT No abnormalities - Neck No abnormalities No cervical adenopathy - CVS RRR - Chest Mildly decreased breath sounds bilaterally. - Resp No wheezing - Abd Soft - GI Non distended Deferred - No abnormalities - Ext Mild bilateral lower extremity edema. - MSK 4/5 weakness in both lower extremities. - Neuro No focal deficits - Psych No abnormalities FUNCTIONAL STATUS: - Self-Care A. Eating 7-Ind B. Grooming 5-sup C. Bathing 5-sup D. Dressing - Upper 5-sup E. Dressing - Lower 6-Ashok F. Toileting 6-Ashok - Sphincter Control G. Bladder control 6-Ashok H. Bowel control 6-Ashok - Transfers Control I. Bed/Chair/Wheelchair 4-Yasmin J. Toilet 4-Yasmin K. Tub/Shower 6-Ashok - Locomotion L. Walk/Wheelchair (B) 6-Ashok M. Stairs 4-Yasmin - Communication N. Comprehension (B) 6-Ashok O. Expression (B) 6-Ashok - Social Cognition P. Social Interaction 7-Ind Q. Problem Solving 6-Ashok R. Memory 7-Ind - Endurance Poor - Balance Fair - Safety Awareness Fair QI SCORES: - Self-Care A. Eating 05-Setup or clean-up assistance B. Oral hygiene 02-Substantial/maximal assistance C. Toileting hygiene 01-Dependent E. Shower/bathe self 01-Dependent F. Upper body dressing 03-Partial/moderate assistance G. Lower body dressing 02-Substantial/maximal assistance H. Putting on/taking off footwear 88-Not attempted due to medical condition or safety concerns - Mobility A. Roll left and right 02-Substantial/maximal assistance B. Sit to lying 02-Substantial/maximal assistance C. Lying to sitting on side of bed 02-Substantial/maximal assistance D. Sit to stand 02-Substantial/maximal assistance E. Chair/kcc-nk-yggoj transfer 02-Substantial/maximal assistance F. Toilet transfer 02-Substantial/maximal assistance G. Car transfer 88-Not attempted due to medical condition or safety concerns I. Walk 10 feet 88-Not attempted due to medical condition or safety concerns J. Walk 50 feet with two turns 88-Not attempted due to medical condition or safety concerns K. Walk 150 feet 88-Not attempted due to medical condition or safety concerns L. Walking 10 feet on uneven surfaces 88-Not attempted due to medical condition or safety concerns M. 1 step (curb) 88-Not attempted due to medical condition or safety concerns N. 4 steps 88-Not attempted due to medical condition or safety concerns O. 12 steps 88-Not attempted due to medical condition or safety concerns P. Picking up object 88-Not attempted due to medical condition or safety concerns R. Wheel 50 feet with two turns 88-Not attempted due to medical condition or safety concerns S. Wheel 150 feet 88-Not attempted due to medical condition or safety concerns - Bladder and Bowel Bladder continence Bowel continence - Endurance Fair - Balance Fair - Safety Awareness Fair DISCHARGE INSTRUCTIONS: - N/A Coumadin 9 mg daily. Pt-INR check 2 times weekly. DISCHARGE PLAN, FOLLOW UP CARE PROVISIONS: - Estimated Length of Stay (days) 10. - Consensus on plan Discharge plan has been discussed with primary caregiver. Patient/Family is in agreement with the brad n. Primary caregiver is in agreement with the plan. - Patient/Family Goals Return home independently. - Planned Living Setting Upon Discharge Home, to live with Family/Relatives. Transitional Living. SIGNATURE PANEL: (CDT)
== END 2021-08-08 16:00 | disposition home health service (06) | DRG 291 ==
LOC: ER 20:13 → 5TH 20:34
PROVIDERS: ADMIT Psychiatry & Neurology Neurology with Special Qualifications in Child Neurology; ATTEND Psychiatry & Neurology Neurology with Special Qualifications in Child Neurology
PROC: 0HD8XZZ Extraction of Buttock Skin, External Approach (ICD-10-PCS; principal; 2021-07-25)
DX: I11.0 Hypertensive heart disease with heart failure (principal); L89.323 Pressure ulcer of left buttock, stage 3; I48.92 Unspecified atrial flutter; Z68.45 Body mass index [BMI] 70 or greater, adult; I50.9 Heart failure, unspecified; I10 Essential (primary) hypertension; E78.5 Hyperlipidemia, unspecified; E66.01 Morbid (severe) obesity due to excess calories; E11.9 Type 2 diabetes mellitus without complications; J45.909 Unspecified asthma, uncomplicated; G47.33 Obstructive sleep apnea (adult) (pediatric); F41.9 Anxiety disorder, unspecified
CPT/HCPCS: 36415; 71045; 80048; 81001; 82040; 83735; 84134; 85025; 85610; 85730; 87086; 87088; 94010; 97110; 97112; 97116; 97163; 97165; 97530; 97542; 99251; J3590

== ENCOUNTER 2021-09-03 15:40 | Inpatient (IN) | payer BC ==
--- NOTE | 2021-09-03 17:34 | RAD REPORT ---
EXAM DESCRIPTION: Michael Single View09/03/2021 5:27 pm CLINICAL HISTORY: Chest pain COMPARISON: July 31, 2021 FINDINGS: No significant change in the bibasilar lung opacities which may represent pneumonia or ate lectasis. Upper lobes appear clear. Heart remains enlarged. Upper lobe vessels are prominent indicative of pulmonary venous hypertension
[2021-09-03 18:35] LABS: Basophils % 0.9 % (0-1.3); Lymphocytes % 16.1 % (15.3-44.8); MPV 7.3 fL (7.6-11.3); RBC Red Blood Cell Count 4.64 M/uL (3.86-4.86)
[2021-09-03 18:44] LABS: Protime INR 1.74
[2021-09-03 18:59] LABS: ALT/SGPT 12 U/L (12-78); AST/SGOT 9 U/L (15-37); Albumin 2.7 g/dL (3.4-5.0); Alkaline Phosphatase 59 U/L (45-117); BUN Blood Urea Nitrogen 5 mg/dL (7-18); Bicarbonate 32 mmol/L (21-32); Bilirubin Direct 0.4 mg/dL (0-0.2); Bilirubin Total 0.9 mg/dL (0.2-1.0); Glucose Level 99 mg/dL (74-106); NT PRO-BNP 1544 pg/mL (<125); Potassium 3.7 mmol/L (3.5-5.1); Protein, Total 8.4 g/dL (6.4-8.2); Sodium Level 141 mmol/L (136-145); Troponin (Emerg Dept Use Only) < 0.02 ng/mL (0.0-0.045)
[2021-09-03] MEDS ORDERED: VANCOMYCIN 1 GM/VIAL ONE (19:01)
[2021-09-03] MEDS ORDERED: CEFEPIME 1 GM/VIAL ONE (19:02)
[2021-09-03] MEDS ORDERED: NA CHLORIDE 0.9% 100 ML ONE (19:02)
[2021-09-03] MEDS ORDERED: NA CHLORIDE 0.9% 0 ML ONE (19:02)
[2021-09-03 19:48] LABS: Urine Blood Trace-intact (Negative); Urine Glucose Negative (Negative); Urine Protein 1+ (Negative); Urine Specific Gravity 1.025 (1.005-1.030)
[2021-09-03] MEDS ORDERED: METOPROLOL XL 50 MG TAB PO ONE (19:49)
[2021-09-03 19:54] LABS: Urine Bacteria <20 /HPF (<20); Urine Coarse Granular Casts 0-5 /LPF (NONE SEEN); Urine Mucus 2+ /HPF (NONE SEEN); Urine RBC <5 /HPF (NONE SEEN)
[2021-09-03 20:08] LABS: Urine Specific Gravity/Preg 1.025 (1.005-1.030)
--- NOTE | 2021-09-03 20:55 | EDPHYS ---
Physician Documentation [facility] Name: Charity Jacob Age: 46 yrs Sex: Female : 1975 Arrival Date: 09/03/2021 Time: 15:41 Bed 25 Private MD: ED Physician Munira Ramirez HPI: 09/03 17:00 This 46 yrs old Female presents to ER via Wheelchair with complaints of cp Irregular Pulse, Wound Check. 17:00 The patient has shortness of breath at rest. cp 17:00 Onset: The symptoms/episode began/occurred gradually, and became worse today. Duration: cp The symptoms are continuous, and are steadily getting worse. Associated signs and symptoms: Pertinent positives: chest pain, Pertinent negatives: productive cough, fever, vomiting. 17:00 The patient presents with cellulitis of the left buttock. cp 17:00 Description: draining, erythematous. cp Historical: - Allergies: 16:25 PENICILLINS; ld1 - Immunization history:: Adult Immunizations up to date, Client reports having NOT received the Covid vaccine. - Social history:: Smoking status: Patient denies any tobacco usage or history of. ROS: 17:05 Constitutional: Negative for body aches, chills, fever, poor PO intake. cp 17:05 Eyes: Negative for injury, pain, redness, and discharge. cp 17:05 ENT: Negative for ear pain, sore throat, difficulty swallowing, difficulty handling secretions. 17:05 Cardiovascular: Positive for chest pain, edema, palpitations. 17:05 Respiratory: Positive for shortness of breath, at rest. Negative for cough, wheezing. 17:05 Abdomen/GI: Negative for abdominal pain, nausea, vomiting, and diarrhea. 17:05 Back: Negative for pain at rest, pain with movement. 17:05 Skin: Positive for cellulitis, of the left buttock, Negative for diaphoresis. 17:05 Neuro: Negative for altered mental status, headache, syncope, weakness. 17:05 All other systems are negative. Exam: 16:22 ECG was reviewed by the Attending Physician. cp 17:10 Constitutional: The patient appears in no acute distress, alert, awake, cp non-diaphoretic, non-toxic, well developed, well nourished, uncomfortable, morbid obesity 17:10 Head/Face: Normocephalic, atraumatic. cp 17:10 Eyes: Periorbital structures: appear normal, Conjunctiva: normal, no exudate, no injection, Sclera: no appreciated abnormality, Lids and lashes: appear normal, bilaterally. 17:10 ENT: External ear(s): are unremarkable, Nose: is normal, Mouth: Lips: normal, Oral mucosa: normal, Posterior pharynx: Airway: no evidence of obstruction, patent. 17:10 Neck: ROM/movement: is normal, is supple, without pain, no range of motions limitations. 17:10 Chest/axilla: Inspection: normal. 17:10 Cardiovascular: Rate: tachycardic, Edema: marked edema of lower legs, JVD: is not appreciated. 17:10 Respiratory: the patient does not display signs of respiratory distress, Respirations: labored breathing, that is mild, Breath sounds: decreased breath sounds, that are mild, throughout, stridor, is not appreciated, wheezing: is not appreciated. 17:10 Abdomen/GI: Inspection: obese Palpation: abdomen is soft and non-tender, in all quadrants. 17:10 Skin: cellulitis, that is moderate, irregular, on the left buttock, skin appears erythematous, fluctuant with draining open wound left buttock. 17:10 Neuro: Orientation: to person, place \T\ time. Mentation: is normal, Motor: moves all fours, strength is normal, Sensation: no obvious gross deficits. 20:35 ECG was reviewed by the Attending Physician. cp Vital Signs: 16:28 BP 135 / 104; Pulse 123; Resp 24; Temp 97.1; Pulse Ox 95% ; Weight 216.82 kg; Height 5 vg1 ft. 7 in. (170.18 cm); Pain 6/10; 17:42 BP 124 / 109; Pulse 126; Resp 18; Pulse Ox 100% on 3 lpm NC; ld1 18:00 BP 143 / 118; Pulse 120; Resp 18; Pulse Ox 100% on 3 lpm NC; ld1 18:30 BP 153 / 91; Pulse 119; Resp 17; Pulse Ox 100% on 3 lpm NC; ld1 21:27 BP 136 / 100; Pulse 118; Resp 20; Temp 97.5; Pulse Ox 97% on R/A; Pain 0/10; dc2 16:28 Body Mass Index 74.86 (216.82 kg, 170.18 cm) vg1 MDM: 16:35 Patient medically screened. cp 21:00 Data reviewed: vital signs, nurses notes, lab test result(s), EKG, radiologic studies, cp plain films. 21:00 Test interpretation: by ED physician or midlevel provider: ECG, plain radiologic cp studies. Counseling: I had a detailed discussion with the patient and/or guardian regarding: the historical points, exam findings, and any diagnostic results supporting the discharge/admit diagnosis, lab results, radiology results, the need for further work-up and treatment in the hospital. Response to treatment: the patient's symptoms have mildly improved after treatment. Physician consultation: Malcom GUIDO was called at 20:50, was contacted at 20:50, regarding admission, to the telemetry unit. patient's condition, and will see patient in ED, shortly. 09/03 16:52 Order name: Basic Metabolic Panel; Complete Time: 19:38 cp 09/03 19:38 Interpretation: Normal except: BUN 5. cp 09/03 16:52 Order name: CBC with Diff; Complete Time: 18:53 cp 09/03 18:53 Interpretation: Normal except: HGB 10.9; MCV 77.6; MCH 23.5; MCHC 30.3; PLT 410; RDW cp 18.4; MPV 7.3. 09/03 16:52 Order name: LFT's; Complete Time: 19:38 cp 09/03 19:38 Interpretation: Normal except: AST 9; BILID 0.4; TP 8.4; ALB 2.7; GLOB 5.7; A/G 0.5. cp 09/03 16:52 Order name: Magnesium; Complete Time: 19:38 cp 09/03 16:52 Order name: NT PRO-BNP; Complete Time: 19:38 cp 09/03 19:39 Interpretation: Abnormal: NT PRO-BNP 1544. cp 09/03 16:52 Order name: PT-INR; Complete Time: 18:53 cp 09/03 16:52 Order name: Troponin (emerg Dept Use Only); Complete Time: 19:38 cp 09/03 16:52 Order name: Procalcitonin; Complete Time: 19:38 cp 09/03 16:52 Order name: Lactate; Complete Time: 18:54 cp 09/03 18:54 Interpretation: LAC 1.4; Reviewed. 09/03 16:52 Order name: Blood Culture Adult (2) cp 09/03 16:52 Order name: Urine Microscopic Only; Complete Time: 20:09 cp 09/03 17:36 Order name: Wound Culture cp 09/03 19:17 Order name: SARS-COV-2 RT PCR EDMS 09/03 16:52 Order name: XRAY Chest (1 view); Complete Time: 17:42 cp 09/03 16:52 Order name: EKG; Complete Time: 16:53 cp 09/03 16:52 Order name: Cardiac monitoring; Complete Time: 18:46 cp 09/03 16:52 Order name: EKG - Nurse/Tech; Complete Time: 18:46 cp 09/03 16:52 Order name: IV Saline Lock; Complete Time: 18:46 cp 09/03 16:52 Order name: Labs collected and sent; Complete Time: 18:47 cp 09/03 16:52 Order name: O2 Per Protocol; Complete Time: 18:47 cp 09/03 19:40 Order name: CT Pelvis w cont cp 09/03 19:48 Order name: Urine Dipstick-Ancillary; Complete Time: 20:09 EDMS 09/03 19:59 Order name: Urine --Ancillary (enter results) tt3 09/03 19:59 Order name: Urine --Ancillary; Complete Time: 20:09 EDMS 09/03 16:52 Order name: O2 Sat Monitoring; Complete Time: 18:47 cp 09/03 16:52 Order name: Villa; Complete Time: 20:16 cp 09/03 16:52 Order name: Urine Dipstick-Ancillary (obtain specimen); Complete Time: 20:12 cp 09/03 16:52 Order name: Urine Test (obtain specimen); Complete Time: 20:12 cp EC:22 Rate is 123 beats/min. Rhythm is regular. LA interval is normal. QRS interval is cp prolonged at 106 msec. QT interval is normal. Interpreted by me. Reviewed by me. 20:35 Rate is 122 beats/min. Rhythm is regular. QRS interval is prolonged at 104 msec. QT cp interval is normal. Interpreted by me. Reviewed by me. Administered Medications: 18:46 Drug: Cefepime 2 grams Route: IVPB; Rate: 200 ml/hr; Infused Over: 30 mins; Site: right ld1 antecubital; 19:46 Follow up: IV Status: Completed infusion; IV Intake: 100ml dc2 19:31 Drug: vancoMYCIN 1.5 grams Route: IVPB; Rate: calculated rate; Site: left antecubital; dc2 19:31 Drug: Metoprolol 50 mg Route: PO; dc2 21:08 Follow up: Response: Blood pressure is lowered dc2 20:38 Drug: Lopressor (metoprolol) 5 mg Route: IVP; Site: right antecubital; dc2 21:09 Follow up: Response: Blood sugar is lowered dc2 21:04 Drug: Lasix (furosemide) 40 mg Route: IVP; Site: right antecubital; dc2 21:31 Follow up: Response: No adverse reaction dc2 Disposition Summary: 09/03/21 20:54 Hospitalization Ordered Hospitalization Status: Inpatient Admission cp Provider: Munira Tobar cp Location: Telemetry/MedSurg (Inpatient) cp Condition: Fair cp Problem: new cp Symptoms: have improved cp Bed/Room Type: Standard cp Room Assignment: 228(09/03/21 21:13) eb1 Diagnosis - Unspecified atrial flutter - chronic cp - Cellulitis of buttock - left cp - Unspecified combined systolic (congestive) and diastolic (congestive) heart failure cp Forms: - Medication Reconciliation Form cp - SBAR form cp Addendum: 09/07/2021 17:30 Co-signature as Attending Physician, Munira Ramirez MD PA/[employer]'s history reviewed, m a2 patient interviewed, and examined. I agree with assessment and care plan and confirm the diagnosis (es) above. Signatures: Dispatcher [employer] EDMS Joe Rod PA PA cp Munira Ramirez MD MD ma2 Margot Mcwilliams RN RN eb1 Marilu Jain RN RN vg1 Shantel Castorena RN RN ld1 Uzma Villalpando RN RN dc2 Corrections: (The following items were deleted from the chart) 09/03 16:27 16:25 Immunization history: Adult Immunizations up to date, Client reports having NOT ld1 received the Covid vaccine. ld1 16:27 16:25 Social history: Smoking status: Patient denies any tobacco usage or history of. ld1 ld1 19:17 16:53 CORONAVIRUS+BRZ ordered. EDMS EDMS 21:13 20:54 cp eb1
--- NOTE | 2021-09-03 20:55 | ER ---
Nurse's Notes [facility] Name: Charity Jacob Age: 46 yrs Sex: Female : 1975 Arrival Date: 09/03/2021 Time: 15:41 Bed 25 Private MD: Diagnosis: Unspecified atrial flutter-chronic;Cellulitis of buttock-left;Unspecified combined systolic (congestive) and diastolic (congestive) heart failure Presentation: 09/03 16:28 Chief complaint: Patient states: Sudden onset of CP, shortness of breath, and vg1 difficulty breathing that began today. States N/D. Denies h/a. Coronavirus screen: Vaccine status: Patient reports being unvaccinated. Client denies travel out of the [place] in the last 14 days. Ebola Screen: Patient negative for fever greater than or equal to 101.5 degrees Fahrenheit, and additional compatible Ebola Virus Disease symptoms. Initial Sepsis Screen: Does the patient meet any 2 criteria? RR > 20 per min. HR > 90 bpm. Yes Does the patient have a suspected source of infection? No. Patient's initial sepsis screen is negative. Risk Assessment: Do you want to hurt yourself or someone else?. Onset of symptoms was September 03, 2021. 16:28 Method Of Arrival: Wheelchair vg1 16:28 Acuity: MAIKEL 2 vg1 Triage Assessment: 16:25 General: Appears in no apparent distress. uncomfortable, Behavior is calm, cooperative. ld1 Pain: Complains of pain in chest. Cardiovascular: Patient's skin is warm and dry. Historical: - Allergies: 16:25 PENICILLINS; ld1 - Immunization history:: Adult Immunizations up to date, Client reports having NOT received the Covid vaccine. - Social history:: Smoking status: Patient denies any tobacco usage or history of. Screenin:08 Abuse screen: Denies threats or abuse. Denies injuries from another. Nutritional ld1 screening: No deficits noted. Tuberculosis screening: No symptoms or risk factors identified. Fall Risk None identified. Assessment: 17:08 General: Appears in no apparent distress. comfortable, Behavior is calm, cooperative, ld1 appropriate for age. Pain: Complains of pain in buttocks Pain does not radiate. Pain currently is 6 out of 10 on a pain scale. Quality of pain is described as throbbing, Pain began 2-3 days ago. Is continuous. Neuro: Level of Consciousness is awake, alert, obeys commands, Oriented to person, place, time, situation. Cardiovascular: Capillary refill < 3 seconds Patient's skin is warm and dry. Respiratory: Airway is patent Respiratory effort is even, unlabored, Respiratory pattern is regular, symmetrical. GI: Abdomen is obese. : No signs and/or symptoms were reported regarding the genitourinary system. EENT: No signs and/or symptoms were reported regarding the EENT system. Derm: Wound noted buttocks Reports pain. Musculoskeletal: No signs and/or symptoms reported regarding the musculoskeletal system. 18:47 Reassessment: Patient appears in no apparent distress at this time. No changes from ld1 previously documented assessment. Patient and/or family updated on plan of care and expected duration. Pain level reassessed. Vital Signs: 16:28 BP 135 / 104; Pulse 123; Resp 24; Temp 97.1; Pulse Ox 95% ; Weight 216.82 kg; Height 5 vg1 ft. 7 in. (170.18 cm); Pain 6/10; 17:42 BP 124 / 109; Pulse 126; Resp 18; Pulse Ox 100% on 3 lpm NC; ld1 18:00 BP 143 / 118; Pulse 120; Resp 18; Pulse Ox 100% on 3 lpm NC; ld1 18:30 BP 153 / 91; Pulse 119; Resp 17; Pulse Ox 100% on 3 lpm NC; ld1 21:27 BP 136 / 100; Pulse 118; Resp 20; Temp 97.5; Pulse Ox 97% on R/A; Pain 0/10; dc2 16:28 Body Mass Index 74.86 (216.82 kg, 170.18 cm) vg1 ED Course: 15:41 Patient arrived in ED. as 16:25 Joe Rod PA is PHCP. cp 16:25 Munira Ramirez MD is Attending Physician. cp 16:25 Triage completed. ld1 16:25 Arm band placed on. EKG completed in triage. Results shown to MD. ld1 17:08 Patient has correct armband on for positive identification. Placed in gown. Bed in low ld1 position. Call light in reach. Side rails up X2. quality assurance monitor final on. Pulse ox on. NIBP on. Door closed. Noise minimized. Warm blanket given. 17:08 No provider procedures requiring assistance completed. Patient maintains SpO2 ld1 saturation greater than 95% on room air. 17:27 XRAY Chest (1 view) In Process Unspecified. EDMS 18:02 Shantel Castorena, RN is Primary Nurse. ld1 18:35 Initial lab(s) drawn, by ok, sent to lab. EKG done, by ED staff, reviewed by Munira Ramirez MD. Inserted saline lock: 20 gauge in right antecubital area, using aseptic technique. Blood collected. 18:36 Adult w/ patient. [facility] 18:46 Blood Culture Adult (2) Sent. ld1 18:46 Lactate Sent. ld1 18:46 Procalcitonin Sent. ld1 19:30 Villa cath inserted, using sterile technique, 16 Fr., by ED staff, urine specimen dc2 collected. Patient tolerated well. 20:12 Urine --Ancillary (enter results) Sent. dc2 20:53 Munira Tobar MD is Hospitalizing Provider. cp 21:34 Patient admitted, IV remains in place. intact, No redness/swelling at site. dc2 Administered Medications: 18:46 Drug: Cefepime 2 grams Route: IVPB; Rate: 200 ml/hr; Infused Over: 30 mins; Site: right ld1 antecubital; 19:46 Follow up: IV Status: Completed infusion; IV Intake: 100ml dc2 19:31 Drug: vancoMYCIN 1.5 grams Route: IVPB; Rate: calculated rate; Site: left antecubital; dc2 19:31 Drug: Metoprolol 50 mg Route: PO; dc2 21:08 Follow up: Response: Blood pressure is lowered dc2 20:38 Drug: Lopressor (metoprolol) 5 mg Route: IVP; Site: right antecubital; dc2 21:09 Follow up: Response: Blood sugar is lowered dc2 21:04 Drug: Lasix (furosemide) 40 mg Route: IVP; Site: right antecubital; dc2 21:31 Follow up: Response: No adverse reaction dc2 Intake: 19:46 IV: 100ml; Total: 100ml. dc2 Outcome: 20:54 Decision to Hospitalize by Provider. cp 21:32 Admitted to Tele accompanied by nurse, via stretcher, room 201, Report called to tx2 Crystal 21:32 Condition: stable 21:32 Instructed on the need for admit. 21:35 Patient left the ED. dc2 Signatures: Dispatcher [employer] EVINMS Zeynep Felton Corey, PA PA cp Martinez, Maty 5 Marilu Jain, RN RN vg1 Shantel Castorena RN RN ld1 Uzma Villalpando RN RN dc2 Corrections: (The following items were deleted from the chart) 16:23 Chief complaint: Patient states: Sudden onset of CP, shortness of breath, and ld1 difficulty breathing that began today. States nausea, denies h/a. ld1 16:23 Coronavirus screen: Vaccine status: Patient reports being unvaccinated. Client ld1 denies travel out of the [place] in the last 14 days. ld1 16:23 Ebola Screen: Patient negative for fever greater than or equal to 101.5 degrees ld1 Fahrenheit, and additional compatible Ebola Virus Disease symptoms ld1 16:23 Initial Sepsis Screen: Does the patient meet any 2 criteria? RR > 20 per min. HR ld1 > 90 bpm. Yes Does the patient have a suspected source of infection? No. Patient's initial sepsis screen is negative. ld1 16:23 Risk Assessment: Do you want to hurt yourself or someone else? Patient reports no ld1 desire to harm self or others. ld1 16:23 Onset of symptoms was September 03, 2021 ld1 ld 16:23 Method Of Arrival: Wheelchair ld1 ld 16:23 BP 135 / 104; Pulse 123bpm; Resp 22bpm; Pulse Ox 95%; Temp 97.1F; 216.82 kg; ld1 Height 5 ft. 7 in.; BMI: 74.8; Pain 6/10; ld1 16:23 Acuity: MAIKEL 2 ld1 ld 16:25 Immunization history: Adult Immunizations up to date, Client reports having NOT ld1 received the Covid vaccine. ld1 16:25 Social history: Smoking status: Patient denies any tobacco usage or history of. ld1 ld1 19:17 18:46 CORONAVIRUS+MR.LAB.NASIR drawn and sent. ld1 EDMS
[2021-09-03] MEDS ORDERED: METOPROLOL TARTRATE 5 MG/5 ML INJ IV ONE (20:59)
[2021-09-03] MEDS ORDERED: FUROSEMIDE 40 MG/4 ML VIAL ONE (21:25)
[2021-09-03] MEDS ORDERED: METOPROLOL TARTRATE 5 MG/5 ML INJ IV PRN (21:42)
[2021-09-03] MEDS ORDERED: HYDRALAZINE HCL 20 MG/ML VIAL IV PRN (21:42)
[2021-09-03] MEDS ORDERED: ONDANSETRON 4 MG/2 ML VIAL IV PRN (21:42)
--- NOTE | 2021-09-03 22:01 | P.HP ---
Certification for Inpatient Patient admitted to: Inpatient With expected LOS: >2 Midnights Patient will require the following post-hospital care: None Practitioner: I am a practitioner with admitting privileges, knowledge of patient current condition, hospital course, and medical plan of care. Services: Services provided to patient in accordance with Admission requirements found in Title 42 Section 412.3 of the Code of Federal Regulations <Malcom Donis - Last Filed: 09/03/21 22:02> Patient History Date of Service: 09/03/21 Reason for admission: CHF exacerbation, cellulitis History of Present Illness: Ms. Jacob is a 46 yo morbidly obese F with CHF, HTN, chronic afib on warfarin, PCOS, fibromyalgia and asthma who presents with tachycardia. She saw her PCP today and was sent to the ED for atrial fibrillation. She received metoprolol PO and IV in the ED, with improvement in heart rate. She says her metoprolol, amiodarone, and lasix were discontinued last month but she still takes her warfarin. She reports palpitations, fatigue, weakness, dizziness, SOB and nausea. Denies fever. She has a wound on her right buttock that was drained in July. She says the wound has been worsening since then and she sees wound care once monthly. Received vancomycin and cefepime in the ED. She is on 3L of O2 at home. She has OT, PT, and HH at home. BNP 1544. Ejection fraction 07/2021 was 37%. Patient unable to go to CT scan due to body habitus. CXR FINDINGS: No significant change in the bibasilar lung opacities which may represent pneumonia or atelectasis. Upper lobes appear clear. Heart remains enlarged. Upper lobe vessels are prominent indicative of pulmonary venous hypertension - Past Medical/Surgical History Diabetic: Yes -: afib/aflutter -: HTN -: HLD -: morbid obesity -: DM -: asthma -: CARLOS -: anxiety -: stage 2 decubitus ulcer L buttocks -: CHF -: fibromyalgia -: PCOS -: cornea transplant Psychosocial/ Personal History: Unable to obtain - Family History Family History: Reviewed- Non-Contributory (adopted) - Social History Smoking Status: Never smoker Alcohol use: No CD- Drugs: No Caffeine use: No Place of Residence: Home <Malcom Donis - Last Filed: 09/03/21 22:02> Date of Service: 09/03/21 <TobarNico michelekishore Robbie - Last Filed: 09/09/21 03:00> Allergies Penicillins Allergy (Verified 07/18/21 22:08) Hives/Rash Home Medications: Acetaminophen [Tylenol] 650 mg PO Q4H PRN 07/18/21 Furosemide [Lasix*] 40 mg PO BID 07/18/21 Hydrocodone 5/APAP 325 [[place] 5/325*] 1 tab PO Q4H PRN 07/18/21 acetaZOLAMIDE [Diamox*] 250 mg PO BID 07/18/21 Magnesium Oxide [Mag 0X*] 400 mg PO BID #60 tab 08/08/21 Nystatin Powder [Mycostatin (Powder)*] 1 appl TOP BID #2 btl 08/08/21 Zinc Sulfate [Zinc Sulfate*] 220 mg PO DAILY #30 cap 08/08/21 Potassium Oral Tab [Klor-Con 10 mEq Tab*] 10 meq PO BID 09/03/21 Cefdinir [Omnicef] 300 mg PO BID #20 capsule 09/07/21 Smz./Tmp. [Bactrim Ds 800 MG/160 MG] 1 tab PO BID #20 tab 09/07/21 Warfarin Sodium [Coumadin*] 4 mg PO DAILY #30 tab 09/07/21 Review of Systems 10-point ROS is otherwise unremarkable General: Malaise Eyes: Unremarkable ENT: Unremarkable Respiratory: Shortness of Breath, SOB with Excertion Cardiovascular: Palpitations, Light Headedness Gastrointestinal: Nausea Genitourinary: Unremarkable Musculoskeletal: Unremarkable Integumentary: Unremarkable Neurological: Unremarkable Lymphatics: Unremarkable <Malcom Donis - Last Filed: 09/03/21 22:02> Physical Examination - Vital Signs Temperature: 97.5 F Blood Pressure: 136/100 Pulse: 118 Respirations: 20 - Physical Exam General: Alert, In no apparent distress, Oriented x3, Cooperative, Obese HEENT: Atraumatic, PERRLA, Mucous membr. moist/pink, EOMI, Sclerae nonicteric Neck: Supple, 2+ carotid pulse no bruit, No LAD, Without JVD or thyroid abnormality Respiratory: Diminished Cardiovascular: No gallops, No rubs, Irregular heart rate/rhythm Capillary refill: <2 Seconds Gastrointestinal: Normal bowel sounds, No tenderness Musculoskeletal: No tenderness Integumentary: Skin breakdown, Tenderness/swelling, Erythema, Warmth, Pressure ulcer Neurological: Normal speech, Normal strength at 5/5 x4 extr, Normal tone, Sensation intact, Normal affect, Abnormal gait Lymphatics: No axilla or inguinal lymphadenopathy Urinary: Villa catheter - Studies Laboratory Data (last 24 hrs) 09/03/21 16:23: PT 20.1 H, INR 1.74 09/03/21 16:23: WBC 6.10, Hgb 10.9 L, Hct 36.0, Plt Count 410 H 09/03/21 16:23: Sodium 141, Potassium 3.7, BUN 5 L, Creatinine 0.66, Glucose 99, Magnesium 2.0, Total Bilirubin 0.9, AST 9 L, ALT 12, Alkaline Phosphatase 59 <Malcom Donis - Last Filed: 09/03/21 22:02> - Studies Microbiology Data (last 24 hrs): 09/03/21 16:18 Blood - Blood Aerobic Blood Culture - Final No growth in 5 days. 09/03/21 16:18 Blood - Blood Anaerobic Blood Culture - Final No growth in 5 days. 09/03/21 16:23 Blood - Blood Aerobic Blood Culture - Final No growth in 5 days. 09/03/21 16:23 Blood - Blood Anaerobic Blood Culture - Final No growth in 5 days. <Munira Tobar - Last Filed: 09/09/21 03:00> Assessment and Plan - Problems (Diagnosis) (1) HTN (hypertension) Status: Chronic Qualifiers: Hypertension type: primary hypertension Qualified Code(s): I10 - Essential (primary) hypertension (2) Pressure ulcer Status: Acute Qualifiers: Pressure injury location: buttock Pressure injury stage: unspecified pressure injury stage Laterality: right Qualified Code(s): L89.319 - Pressure ulcer of right buttock, unspecified stage (3) Congestive heart failure Status: Acute Qualifiers: Heart failure type: unspecified Heart failure chronicity: acute on chronic Qualified Code(s): I50.9 - Heart failure, unspecified (4) History of atrial fibrillation Status: Acute (5) Morbid obesity Status: Chronic - Plan continue IV antibiotics, wound care consulted, patient may require debridement continue metoprolol for rate control of afib, continue warfarin continue IV lasix, daily weights, low sodium diet, fluid restrict O2 as needed hydralazine PRN for BP spikes reconcile and continue home medications from pharmacy, patient unsure of home medications and why her heart medications were discontinued Discharge Plan: Home Plan to discharge in: 72 Hours - Advance Directives Does patient have a Living Will: No Does patient have a Durable POA for Healthcare: No - Code Status/Comfort Care Code Status Assessed: Yes (full code ) Critical Care: No Time Spent Managing Pts Care (In Minutes): 70 <Malcom Donis - Last Filed: 09/03/21 22:02> - Problems (Diagnosis) (1) Abscess of buttock Status: Acute (2) Pressure ulcer Status: Acute Qualifiers: Pressure injury location: buttock Pressure injury stage: stage 4 Laterality: left Qualified Code(s): L89.324 - Pressure ulcer of left buttock, stage 4 (3) HTN (hypertension) Status: Chronic Qualifiers: Hypertension type: primary hypertension Qualified Code(s): I10 - Essential (primary) hypertension (4) Congestive heart failure Status: Acute Qualifiers: Heart failure type: unspecified Heart failure chronicity: acute on chronic Qualified Code(s): I50.9 - Heart failure, unspecified (5) History of atrial fibrillation Status: Acute (6) Obesity hypoventilation syndrome Status: Acute <Munira Tobar - Last Filed: 09/09/21 03:00> Date of Service: 09/03/21 Subjective Agree with HPI as mentioned above Review of Systems 10-point ROS is otherwise unremarkable Physical Examination - Vital Signs Temperature: 97.5 F Blood Pressure: 137/75 Pulse: 120 Respirations: 18 Pulse Ox (%): 93 - Physical Exam General: Alert, In no apparent distress, Oriented x3 HEENT: Atraumatic, PERRLA, EOMI Neck: Supple, JVD not distended Respiratory: Clear to auscultation bilaterally, Normal air movement Cardiovascular: Regular rate/rhythm, Normal S1 S2 Gastrointestinal: Normal bowel sounds, No tenderness Musculoskeletal: Erythema, Tenderness, Warmth, Other (This is in the region of the back) Integumentary: No rashes Neurological: Normal speech, Normal tone, Normal affect Lymphatics: No axilla or inguinal lymphadenopathy - Studies Laboratory Data (last 24 hrs) 09/03/21 16:23: PT 20.1 H, INR 1.74 09/03/21 16:23: WBC 6.10, Hgb 10.9 L, Hct 36.0, Plt Count 410 H 09/03/21 16:23: Sodium 141, Potassium 3.7, BUN 5 L, Creatinine 0.66, Glucose 99, Magnesium 2.0, Total Bilirubin 0.9, AST 9 L, ALT 12, Alkaline Phosphatase 59 Microbiology Data (last 24 hrs): 09/03/21 18:16 Wound - Left Buttock Gram Stain - Final Medications List Reviewed: Yes Assessment & Plan - Problems (Diagnosis) (1) Abscess of buttock Current Visit: Yes Status: Acute (2) Pressure ulcer Current Visit: Yes Status: Acute Qualifiers: Pressure injury location: buttock Pressure injury stage: stage 4 Laterality: left Qualified Code(s): L89.324 - Pressure ulcer of left buttock, stage 4 (3) HTN (hypertension) Current Visit: Yes Status: Chronic Qualifiers: Hypertension type: primary hypertension Qualified Code(s): I10 - Essential (primary) hypertension (4) Congestive heart failure Current Visit: No Status: Acute Qualifiers: Heart failure type: unspecified Heart failure chronicity: acute on chronic Qualified Code(s): I50.9 - Heart failure, unspecified (5) History of atrial fibrillation Current Visit: No Status: Acute (6) Obesity hypoventilation syndrome Current Visit: No Status: Acute - Plan 1. Continue with IV antibiotic 2. Continue with local wound care 3. Wound care consultation/surgical consultation 4. Gentle IV hydration 5. Monitor CBC 6. Strict blood sugar monitoring 7. Pain control 8. GI and DVT prophylaxis - Advance Directives Does patient have a Living Will: No Does patient have a Durable POA for Healthcare: No <Munira Tobar - Last Filed: 09/09/21 03:00>
[2021-09-03] MEDS ORDERED: VANCOMYCIN 500 MG in NA CHLORIDE 0.9% 100 ML IVPB ONE (22:15)
[2021-09-03 22:58] VITALS: BMI 73.1
[2021-09-04 06:06] LABS: Basophils % 0.8 % (0-1.3); Hematocrit 33.8 % (36.0-45.0); Lymphocytes % 13.9 % (15.3-44.8); MPV 8.2 fL (7.6-11.3); RBC Red Blood Cell Count 4.37 M/uL (3.86-4.86)
[2021-09-04 06:36] LABS: ALT/SGPT 10 U/L (12-78); AST/SGOT 12 U/L (15-37); Albumin 2.4 g/dL (3.4-5.0); Alkaline Phosphatase 51 U/L (45-117); BUN Blood Urea Nitrogen 5 mg/dL (7-18); Bicarbonate 32 mmol/L (21-32); Bilirubin Total 0.8 mg/dL (0.2-1.0); Ferritin 28.5 ng/mL (8-388); Glucose Level 98 mg/dL (74-106); HDL Cholesterol 25 mg/dL (40-60); LDL Cholesterol, Calculated 40 (<130); Magnesium 1.8 mg/dL (1.8-2.4); Phosphorus 3.1 mg/dL (2.5-4.9); Potassium 3.3 mmol/L (3.5-5.1); Protein, Total 7.5 g/dL (6.4-8.2); Sodium Level 141 mmol/L (136-145); Transferrin 210 mg/dL (200-360)
[2021-09-04] MEDS: VANCOMYCIN 2 GM in NA CHLORIDE 0.9% 500 ML IVPB SCH ×2 (08:58→21:00)
[2021-09-04] MEDS: CEFEPIME 1 GM/100 ML BAG IV SCH ×2 (08:59→21:51)
[2021-09-04] MEDS: FUROSEMIDE 40 MG/4 ML VIAL IV SCH ×2 (08:59→16:12)
[2021-09-04] MEDS ORDERED: CEFEPIME 1 GM/VIAL IV SCH (09:00)
[2021-09-04] MEDS ORDERED: [UNRECOGNIZED DRUG - REMARK] XX PRN (09:00)
--- NOTE | 2021-09-04 17:35 | P.PN ---
Subjective Date of Service: 09/04/21 Patient was large abscess in the buttocks region. Seen by wound healing and plan is to Consult General surgery in the morning for I and D. Will make patient NPO after midnight. Review of Systems 10-point ROS is otherwise unremarkable Physical Examination - Vital Signs Temperature: 97.5 F Blood Pressure: 137/75 Pulse: 120 Respirations: 18 Pulse Ox (%): 93 - Physical Exam General: Alert, In no apparent distress, Oriented x3 HEENT: Atraumatic, PERRLA, EOMI Neck: Supple, JVD not distended Respiratory: Clear to auscultation bilaterally, Normal air movement Cardiovascular: Regular rate/rhythm, Normal S1 S2 Gastrointestinal: Normal bowel sounds, No tenderness Musculoskeletal: Erythema, Tenderness, Warmth, Other (This is in the region of the back) Integumentary: No rashes Neurological: Normal speech, Normal tone, Normal affect Lymphatics: No axilla or inguinal lymphadenopathy - Studies Laboratory Data (last 24 hrs) 09/03/21 16:23: PT 20.1 H, INR 1.74 09/03/21 16:23: WBC 6.10, Hgb 10.9 L, Hct 36.0, Plt Count 410 H 09/03/21 16:23: Sodium 141, Potassium 3.7, BUN 5 L, Creatinine 0.66, Glucose 99, Magnesium 2.0, Total Bilirubin 0.9, AST 9 L, ALT 12, Alkaline Phosphatase 59 Microbiology Data (last 24 hrs): 09/03/21 18:16 Wound - Left Buttock Gram Stain - Final Medications List Reviewed: Yes Assessment & Plan - Problems (Diagnosis) (1) Abscess of buttock Current Visit: Yes Status: Acute (2) Pressure ulcer Current Visit: Yes Status: Acute Qualifiers: Pressure injury location: buttock Pressure injury stage: stage 4 Laterality: left Qualified Code(s): L89.324 - Pressure ulcer of left buttock, stage 4 (3) HTN (hypertension) Current Visit: Yes Status: Chronic Qualifiers: Hypertension type: primary hypertension Qualified Code(s): I10 - Essential (primary) hypertension (4) Congestive heart failure Current Visit: No Status: Acute Qualifiers: Heart failure type: unspecified Heart failure chronicity: acute on chronic Qualified Code(s): I50.9 - Heart failure, unspecified (5) History of atrial fibrillation Current Visit: No Status: Acute (6) Obesity hypoventilation syndrome Current Visit: No Status: Acute - Plan 1. Continue with IV antibiotic 2. Continue with local wound care 3. Wound care consultation/surgical consultation 4. Gentle IV hydration 5. Monitor CBC 6. Strict blood sugar monitoring 7. Pain control 8. GI and DVT prophylaxis - Advance Directives Does patient have a Living Will: No Does patient have a Durable POA for Healthcare: No
[2021-09-04] MEDS ORDERED: VANCOMYCIN 1 GM/VIAL ONE (23:36)
[2021-09-05] MEDS: FUROSEMIDE 40 MG/4 ML VIAL IV SCH ×2 (09:14→16:02)
[2021-09-05] MEDS: VANCOMYCIN 2 GM in NA CHLORIDE 0.9% 500 ML IVPB SCH (09:14)
[2021-09-05] MEDS: CEFEPIME 1 GM/100 ML BAG IV SCH ×2 (09:14→20:46)
[2021-09-05 09:31] LABS: Absolute Lymphocytes (CBC) 1.1 K/uL (0.7-4.9); Basophils % 0.6 % (0-1.3); Hematocrit 34.1 % (36.0-45.0); Lymphocytes % 25.2 % (15.3-44.8); MPV 7.6 fL (7.6-11.3); RBC Red Blood Cell Count 4.42 M/uL (3.86-4.86)
[2021-09-05 09:36] LABS: ALT/SGPT 8 U/L (12-78); AST/SGOT 10 U/L (15-37); Alkaline Phosphatase 49 U/L (45-117); BUN Blood Urea Nitrogen 4 mg/dL (7-18); Bicarbonate 36 mmol/L (21-32); Bilirubin Total 0.8 mg/dL (0.2-1.0); Glucose Level 86 mg/dL (74-106); Magnesium 1.9 mg/dL (1.8-2.4); Phosphorus 3.5 mg/dL (2.5-4.9); Potassium 3.2 mmol/L (3.5-5.1); Protein, Total 7.3 g/dL (6.4-8.2); Sodium Level 143 mmol/L (136-145)
--- NOTE | 2021-09-05 12:05 | CON ---
Date of Consultation: 09/05/2021 Reason For Consultation: Left buttock infected wound. History Of Present Illness: The patient is a 46-year-old female, who I saw about a month and a half ago when she was on the rehab floor receiving therapy for a left buttock wound, which was debrided at the bedside and was not infected at that time and [facility], but she has not and she was admitted again with CHF and cellulitis and on evaluation she had some purulence coming out of this wound on the left buttock and I was asked to evaluate. She is elder ke, alert. No sore throat, runny nose, cough, headaches, or dizziness. No chest pain. No fever or chills. Review of Systems: Otherwise unremarkable. Past Medical History: Significant for morbid obesity, the patient weighs approximately 427 pounds. Also, her past medical history is significant for hyperlipidemia, hypertension, diabetes, and congest estefanía heart failure. Past Surgical History: Negative. Allergies: INCLUDE PENICILLIN. Social History: She denies smoking or drinking. Family History: Noncontributory. Physical Examination: Vital Signs: Her vital signs are stable. She is afebrile. General: She is awake, alert, and oriented x3. Head and Neck: Cranial nerves 2 through 12 are grossly within normal limits. No neck masses. No JV D. Throat clear. Neck is supple. Chest: Clear. Heart: S1 and S2. Abdomen: Soft. Extremities: Neurovascularly intact. Neurologic: Nonfocal. On the left buttock, there appears to be a stage IV pressure ulcer measuring approximately 3.8 x 3.2 x 12.8 cm with 10% bridging. There was copious amount of creamy green draina ge and I was able to express it from all around the area and all of the fluid appears to have come ou t with manipulation of the wound. I used Q-tip to make the opening a little bit bigger with gentle p ressure and this allowed a large amount of that greenish creamy material did come out. Cultures were done and then the wound was packed. Assessment: Infected wound, left buttock. Recommendations: Continue IV antibiotics as ordered. Check cultures and adjust antibiotics accordin gly. Wet-to-dry. Normal saline dressing, change it for now. We will get an ultrasound to see if sh fredrick has any other pocket that needs to be drain. Should there be significant amount of fluid, she may need surgical intervention; however, clinically I feel like we got most of the fluid out and because she is high risk and she is on Coumadin for history of blood clots, she would be a high risk patient for general anesthesia. Should she needed, however, we will take care of it, but at this time, we wi ll try these more conservative measures prior to contemplating more aggressive measures. Plan of chirag alcala was discussed in detail with Dr. Tobar. GABRIELLE/GIA Voice ID: [id number] Report ID: [id number]
[2021-09-05] MEDS: KCL 20 MEQ/100 mL IVPB 20 MEQ/100 ML BAG IV SCH ×2 (13:53→16:01)
--- NOTE | 2021-09-05 15:32 | RAD REPORT ---
EXAM DESCRIPTION: US - Extremity Nonvascular Complete - 09/05/2021 1:35 pm CLINICAL HISTORY: abscess COMPARISON: No comparisons FINDINGS: Focused ultrasound of the left buttocks to evaluate for an abscess. Subcutaneous edema is present. There is a thin sliver of fluid measuring 15 millimeters by 3 millimeters. IMPRESSION: Small 15 mm x 3 mm fluid collection in the superficial soft tissues of the left buttock. In addition, there is subcutaneous edema and hypervascularity that may reflect a cellulitis.
[2021-09-05] MEDS: ACETAMINOPHEN 500 MG TAB PO PRN (18:00)
[2021-09-05] MEDS: VANCOMYCIN 1.75 GM in NA CHLORIDE 0.9% 500 ML IVPB SCH (21:45)
[2021-09-06] MEDS: FUROSEMIDE 40 MG/4 ML VIAL IV SCH (09:00)
[2021-09-06 09:14] LABS: BUN Blood Urea Nitrogen 5 mg/dL (7-18); Bicarbonate 34 mmol/L (21-32); Glucose Level 93 mg/dL (74-106); Magnesium 1.8 mg/dL (1.8-2.4); Potassium 3.3 mmol/L (3.5-5.1); Sodium Level 142 mmol/L (136-145)
[2021-09-06] MEDS: VANCOMYCIN 1.75 GM in NA CHLORIDE 0.9% 500 ML IVPB SCH ×2 (09:23→21:45)
[2021-09-06] MEDS: CEFEPIME 1 GM/100 ML BAG IV SCH ×2 (09:23→21:45)
[2021-09-06] MEDS ORDERED: MAGNESIUM SULFATE 1 gm IVPB 1 GM/100 ML BAG IV ONE (13:00)
[2021-09-06] MEDS ORDERED: POTASSIUM CL SA 10 MEQ TAB PO ONE (13:00)
[2021-09-06] MEDS: ACETAMINOPHEN 500 MG TAB PO PRN ×2 (17:06→21:45)
[2021-09-07] MEDS ORDERED: POTASSIUM CL SA 10 MEQ TAB PO ONE (09:00)
[2021-09-07 09:03] VITALS: BP 184/81; TEMP 97.9
[2021-09-07 09:10] VITALS: O2SAT 99
--- NOTE | 2021-09-09 02:41 | P.DS ---
Discharge Date: 09/07/21 Disposition: ROUTINE DISCHARGE Discharge Condition: GOOD Reason for Admission: CHF exacerbation, cellulitis - Problems (1) Abscess of buttock Status: Acute (2) Pressure ulcer Status: Acute Qualifiers: Pressure injury location: buttock Pressure injury stage: stage 4 Laterality: left Qualified Code(s): L89.324 - Pressure ulcer of left buttock, stage 4 (3) HTN (hypertension) Status: Chronic Qualifiers: Hypertension type: primary hypertension Qualified Code(s): I10 - Essential (primary) hypertension (4) Congestive heart failure Status: Acute Qualifiers: Heart failure type: unspecified Heart failure chronicity: acute on chronic Qualified Code(s): I50.9 - Heart failure, unspecified (5) History of atrial fibrillation Status: Acute (6) Obesity hypoventilation syndrome Status: Acute Brief History of Present Illness: Ms. Jacob is a 46 yo morbidly obese F with CHF, HTN, chronic afib on warfarin, PCOS, fibromyalgia and asthma who presents with tachycardia. She saw her PCP today and was sent to the ED for atrial fibrillation. She received metoprolol PO and IV in the ED, with improvement in heart rate. She says her metoprolol, amiodarone, and lasix were discontinued last month but she still takes her warfarin. She reports palpitations, fatigue, weakness, dizziness, SOB and nausea. Denies fever. She has a wound on her right buttock that was drained in July. She says the wound has been worsening since then and she sees wound care once monthly. Received vancomycin and cefepime in the ED. She is on 3L of O2 at home. She has OT, PT, and HH at home. BNP 1544. Ejection fraction 07/2021 was 37%. Patient unable to go to CT scan due to body habitus. Hospital Course: Patient had the abscess on the back wound drain. Patient had a large amount of purulent drainage. Patient a ultrasound which revealed a very small area which was pretty much almost resolved. Plan is to continue with antibiotic therapy at discharge along with home health for wound care in outpatient wound healing consultation. At this time, patient is stable for discharge home. Vital Signs/Physical Exam: Temp Pulse Resp BP Pulse Ox 97.9 F 101 H 20 184/81 H 98 09/07/21 08:00 09/07/21 08:00 09/07/21 08:00 09/07/21 08:00 09/07/21 08:00 General: Alert, In no apparent distress, Oriented x3 Laboratory Data at Discharge: WBC 4.30 K/uL (4.3-10.9) D 09/05/21 08:50 Hgb 10.5 g/dL (12.0-15.0) L 09/05/21 08:50 Hct 34.1 % (36.0-45.0) L 09/05/21 08:50 Plt Count 325 K/uL (152-406) 09/05/21 08:50 PT 20.1 SECONDS (9.5-12.5) H 09/03/21 16:23 INR 1.74 09/03/21 16:23 Sodium 142 mmol/L (136-145) 09/06/21 08:25 Potassium 3.6 mmol/L (3.5-5.1) 09/06/21 19:03 BUN 5 mg/dL (7-18) L 09/06/21 08:25 Creatinine 0.46 mg/dL (0.55-1.3) L 09/06/21 08:25 Glucose 93 mg/dL (74-106) 09/06/21 08:25 Phosphorus 3.5 mg/dL (2.5-4.9) 09/05/21 08:50 Magnesium 1.8 mg/dL (1.8-2.4) 09/06/21 08:25 Total Bilirubin 0.8 mg/dL (0.2-1.0) 09/05/21 08:50 AST 10 U/L (15-37) L 09/05/21 08:50 ALT 8 U/L (12-78) L 09/05/21 08:50 Alkaline Phosphatase 49 U/L (45-117) 09/05/21 08:50 Triglycerides 81 mg/dL (<150) 09/04/21 05:00 Cholesterol 81 mg/dL (<200) 09/04/21 05:00 HDL Cholesterol 25 mg/dL (40-60) L 09/04/21 05:00 Cholesterol/HDL Ratio 3.24 09/04/21 05:00 Home Medications: Acetaminophen [Tylenol] 650 mg PO Q4H PRN 07/18/21 Furosemide [Lasix*] 40 mg PO BID 07/18/21 Hydrocodone 5/APAP 325 [[place] 5/325*] 1 tab PO Q4H PRN 07/18/21 acetaZOLAMIDE [Diamox*] 250 mg PO BID 07/18/21 Magnesium Oxide [Mag 0X*] 400 mg PO BID #60 tab 08/08/21 Nystatin Powder [Mycostatin (Powder)*] 1 appl TOP BID #2 btl 08/08/21 Zinc Sulfate [Zinc Sulfate*] 220 mg PO DAILY #30 cap 08/08/21 Potassium Oral Tab [Klor-Con 10 mEq Tab*] 10 meq PO BID 09/03/21 Cefdinir [Omnicef] 300 mg PO BID #20 capsule 09/07/21 Smz./Tmp. [Bactrim Ds 800 MG/160 MG] 1 tab PO BID #20 tab 09/07/21 Warfarin Sodium [Coumadin*] 4 mg PO DAILY #30 tab 09/07/21 New Medications: Smz./Tmp. [Bactrim Ds 800 MG/160 MG] 1 tab PO BID #20 tab Warfarin Sodium [Coumadin*] 4 mg PO DAILY #30 tab Cefdinir [Omnicef] 300 mg PO BID #20 capsule Physician Discharge Instructions: OK TO DC IV AND DC HOME FOLLOW-UP WITH PRIMARY CARE PROVIDER IN 1-2 WEEKS FOLLOW-UP WITH General surgery, Dr. Hogan, IN 1-2 WEEKS Follow-up with [facility] weekly Follow-up with Home health for nursing care, wound care, PT, labs including BMP, INR weekly-If any abnormality they need to notify PCP or can also contatc me at the above number RETURN TO THE ER IF symptoms worsen CALL or TEXT DR. MIGUEL AT [phone] IF ANY QUESTIONS REGARDING HOSPITAL STAY. PLEASE CALL THE FLOOR AT [phone] IF ANY MEDICATION OR NURSING QUESTIONS. Diet: AHA Activity: Fall precautions Followup: Jessica Miguel NP [Primary Care Provider] - David Hogan MD [ACTIVE - CAN ADMIT] - Time spent managing pt's care (in minutes): 35
--- NOTE | 2021-09-09 02:41 | P.PN ---
Date of Service: 09/06/21 Subjective Patient is improving. Patient's clinical symptoms continued to get much better. Review of Systems 10-point ROS is otherwise unremarkable Physical Examination - Vital Signs Reviewed - Physical Exam General: Alert, In no apparent distress, Oriented x3 Respiratory: Clear to auscultation bilaterally, Normal air movement Cardiovascular: Regular rate/rhythm, Normal S1 S2 Gastrointestinal: Normal bowel sounds, No tenderness Musculoskeletal: Erythema, Tenderness, Warmth, Other (This is in the region of the back) Assessment & Plan - Problems (Diagnosis) (1) Abscess of buttock Current Visit: Yes Status: Acute (2) Pressure ulcer Current Visit: Yes Status: Acute Qualifiers: Pressure injury location: buttock Pressure injury stage: stage 4 Laterality: left Qualified Code(s): L89.324 - Pressure ulcer of left buttock, stage 4 (3) HTN (hypertension) Current Visit: Yes Status: Chronic Qualifiers: Hypertension type: primary hypertension Qualified Code(s): I10 - Essential (primary) hypertension (4) Congestive heart failure Current Visit: No Status: Acute Qualifiers: Heart failure type: unspecified Heart failure chronicity: acute on chronic Qualified Code(s): I50.9 - Heart failure, unspecified (5) History of atrial fibrillation Current Visit: No Status: Acute (6) Obesity hypoventilation syndrome Current Visit: No Status: Acute - Plan Continue with plan of care as mentioned below: 1. Continue with IV antibiotic 2. Continue with local wound care 3. Wound care consultation/surgical consultation 4. Gentle IV hydration 5. Monitor CBC 6. Strict blood sugar monitoring 7. Pain control 8. GI and DVT prophylaxis - Advance Directives Does patient have a Living Will: No Does patient have a Durable POA for Healthcare: No
--- NOTE | 2021-09-09 02:41 | P.PN ---
Date of Service: 09/05/21 Subjective Continue with wound care. Patient's wound is been drained quite a bit. Continue with wound healing Center. Continue therapy as well. Review of Systems 10-point ROS is otherwise unremarkable Physical Examination - Vital Signs Reviewed - Physical Exam General: Alert, In no apparent distress, Oriented x3 Respiratory: Clear to auscultation bilaterally, Normal air movement Cardiovascular: Regular rate/rhythm, Normal S1 S2 Gastrointestinal: Normal bowel sounds, No tenderness Musculoskeletal: Erythema, Tenderness, Warmth, Other (This is in the region of the back) Assessment & Plan - Problems (Diagnosis) (1) Abscess of buttock Current Visit: Yes Status: Acute (2) Pressure ulcer Current Visit: Yes Status: Acute Qualifiers: Pressure injury location: buttock Pressure injury stage: stage 4 Laterality: left Qualified Code(s): L89.324 - Pressure ulcer of left buttock, stage 4 (3) HTN (hypertension) Current Visit: Yes Status: Chronic Qualifiers: Hypertension type: primary hypertension Qualified Code(s): I10 - Essential (primary) hypertension (4) Congestive heart failure Current Visit: No Status: Acute Qualifiers: Heart failure type: unspecified Heart failure chronicity: acute on chronic Qualified Code(s): I50.9 - Heart failure, unspecified (5) History of atrial fibrillation Current Visit: No Status: Acute (6) Obesity hypoventilation syndrome Current Visit: No Status: Acute - Plan Continue with plan of care as mentioned below: 1. Continue with IV antibiotic 2. Continue with local wound care 3. Wound care consultation/surgical consultation 4. Gentle IV hydration 5. Monitor CBC 6. Strict blood sugar monitoring 7. Pain control 8. GI and DVT prophylaxis Arrange for outpatient home health and out patient wound healing Center follow- up - Advance Directives Does patient have a Living Will: No Does patient have a Durable POA for Healthcare: No
== END 2021-09-07 11:19 | disposition home health service (06) | DRG 602 ==
LOC: ER 15:40 → ERHOLD 21:02 → 2ND 21:34
PROVIDERS: ADMIT Hospitalist; ATTEND Hospitalist
DX: L02.31 Cutaneous abscess of buttock (principal); L89.324 Pressure ulcer of left buttock, stage 4; I50.43 Acute on chronic combined systolic (congestive) and diastolic (congestive) heart failure; I48.20 Chronic atrial fibrillation, unspecified; E66.2 Morbid (severe) obesity with alveolar hypoventilation; Z68.45 Body mass index [BMI] 70 or greater, adult; I11.0 Hypertensive heart disease with heart failure; E28.2 Polycystic ovarian syndrome; M79.7 Fibromyalgia; Z79.01 Long term (current) use of anticoagulants; Z88.0 Allergy status to penicillin; Z20.822 Contact with and (suspected) exposure to COVID-19
CPT/HCPCS: 36415; 51702; 71045; 76881; 80048; 80053; 80061; 80076; 80202; 81003; 81015; 81025; 82728; 82947; 83540; 83605; 83735; 83880; 84100; 84132; 84145; 84439; 84443; 84466; 84484; 85025; 85610; 87040; 87070; 87075; 87077; 87186; 87205; 93005; 94760; 97116; 97161; 99251; 99285; J0692; J1940; J3370; J3475; J3480; J7040; U0003

== ENCOUNTER 2021-09-16 14:24 | Inpatient (IN) | payer BC ==
[2021-09-16 15:11] LABS: Absolute Lymphocytes (CBC) 0.8 K/uL (0.7-4.9); Basophils % 0.7 % (0-1.3)
[2021-09-16 15:17] LABS: Protime INR 1.5
--- NOTE | 2021-09-16 15:17 | EDPHYS ---
Physician Documentation [facility] Name: Charity Jacob Age: 46 yrs Sex: Female : 1975 Arrival Date: 09/16/2021 Time: 14:25 Bed 16 Private MD: ED Physician Joe Murphy HPI: 09/16 16:40 This 46 yrs old Female presents to ER via EMS with complaints of Palpitations. sherry 16:40 The patient presents with a history of irregular heart beat, heart racing. Context: The sherry symptoms occur at rest. Onset: The symptoms/episode began/occurred just prior to arrival, this morning. Duration: The patient or guardian reports a single episode, that is still ongoing. Modifying factors: The symptoms are aggravated by anxiety, light activity, lying down, The symptoms are alleviated by remaining still. Associated signs and symptoms: Pertinent positives: cough, SOB. Severity of symptoms: At their worst the symptoms were moderate in the emergency department the symptoms are unchanged. The patient has not experienced similar symptoms in the past. 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 - Social history:: Smoking status: Patient denies any tobacco usage or history of. ROS: 16:42 Constitutional: Negative for fever, chills, and weight loss, Eyes: Negative for injury, sherry pain, redness, and discharge, ENT: Negative for injury, pain, and discharge, Neck: Negative for injury, pain, and swelling, Abdomen/GI: Negative for abdominal pain, nausea, vomiting, diarrhea, and constipation, Back: Negative for injury and pain, : Negative for injury, bleeding, discharge, and swelling, MS/Extremity: Negative for injury and deformity, Skin: Negative for injury, rash, and discoloration, Neuro: Negative for headache, weakness, numbness, tingling, and seizure, Psych: Negative for depression, anxiety, suicide ideation, homicidal ideation, and hallucinations, Allergy/Immunology: Negative for hives, rash, and allergies, Endocrine: Negative for neck swelling, polydipsia, polyuria, polyphagia, and marked weight changes, Hematologic/Lymphatic: Negative for swollen nodes, abnormal bleeding, and unusual bruising. 16:42 Cardiovascular: Positive for chest pain, palpitations. 16:42 Respiratory: Positive for cough, shortness of breath, at rest. Exam: 16:42 Constitutional: This is a well developed, well nourished patient who is awake, alert, sherry and in no acute distress. Head/Face: Normocephalic, atraumatic. Eyes: Pupils equal round and reactive to light, extra-ocular motions intact. Lids and lashes normal. Conjunctiva and sclera are non-icteric and not injected. Cornea within normal limits. Periorbital areas with no swelling, redness, or edema. ENT: Nares patent. No nasal discharge, no septal abnormalities noted. Tympanic membranes are normal and external auditory canals are clear. Oropharynx with no redness, swelling, or masses, exudates, or evidence of obstruction, uvula midline. Mucous membranes moist. Neck: Trachea midline, no thyromegaly or masses palpated, and no cervical lymphadenopathy. Supple, full range of motion without nuchal rigidity, or vertebral point tenderness. No Meningismus. Chest/axilla: Normal chest wall appearance and motion. Nontender with no deformity. No lesions are appreciated. Respiratory: Lungs have equal breath sounds bilaterally, clear to auscultation and percussion. No rales, rhonchi or wheezes noted. No increased work of breathing, no retractions or nasal flaring. Abdomen/GI: Soft, non-tender, with normal bowel sounds. No distension or tympany. No guarding or rebound. No evidence of tenderness throughout. Back: No spinal tenderness. No costovertebral tenderness. Full range of motion. Pelvic Exam: Normal external genitalia. Speculum exam with closed cervical os, no discharge or bleeding noted. Bimanual exam with normal adnexa, no adnexal or cervical motion tenderness. Normal uterus. Female : Normal external genitalia. Skin: Warm, dry with normal turgor. Normal color with no rashes, no lesions, and no evidence of cellulitis. MS/ Extremity: Pulses equal, no cyanosis. Neurovascular intact. Full, normal range of motion. Neuro: Awake and alert, GCS 15, oriented to person, place, time, and situation. Cranial nerves II-XII grossly intact. Motor strength 5/5 in all extremities. Sensory grossly intact. Cerebellar exam normal. Normal gait. Psych: Awake, alert, with orientation to person, place and time. Behavior, mood, and affect are within normal limits. 16:42 Cardiovascular: Rate: tachycardic, Rhythm: irregularly irregular, Pulses: Pulses are 4+ in bilateral radial, brachial, femoral, popliteal, posterior tibial and and dorsalis pedis arteries.. Heart sounds: normal, Edema: 1+ edema to level of left midcalf and right midcalf, JVD: is not appreciated. 16:42 ECG was reviewed by the Attending Physician. Vital Signs: 14:33 BP 146 / 102; Pulse 133; Resp 15; Pulse Ox 9% 2 lpm ; jl7 14:34 Temp 97.4; jl7 15:00 BP 121 / 90; Pulse 120; Resp 22; Pulse Ox 100% on 2 lpm NC; jl7 15:15 BP 132 / 105; Pulse 107; Resp 21; Pulse Ox 100% on 2 lpm NC; jl7 15:36 BP 115 / 83; Pulse 108; Resp 28; Pulse Ox 100% on 2 lpm NC; jl7 19:14 BP 104 / 47; Pulse 90; Resp 20; Pulse Ox 100% on R/A; jt3 MDM: 14:27 Patient medically screened. sherry 16:44 JULIANA Risk Score: Total Score = 0. Antibiotic administration: Not indicated. sherry Differential diagnosis: Anemia Anxiety Reaction asthma, Bronchitis CHF exacerbation, arrythmia, dehydration, Myocardial Infarction Pneumothorax pulmonary edema. The patient's Wells Deep Vein Thrombosis Score was calculated as follows: Heart Rate >100 BPM (1.5 Pts) Total Score: 0-2 Pts- Low Risk. The patient's pulmonary embolism risk score was calculated as follows: Total Score: 0-2 points. This patient was found to be at low risk for a pulmonary embolism by using the Well's assessment criteria. Immunization status:. Data reviewed: vital signs, nurses notes, EMS record, lab test result(s), EKG, radiologic studies, plain films. Data interpreted: environmental monitoring technician: rate is 127 beats/min, rhythm is regular, Pulse oximetry: on room air is 100 %. Test interpretation: by ED physician or midlevel provider: ECG, plain radiologic studies. Counseling: I had a detailed discussion with the patient and/or guardian regarding: the historical points, exam findings, and any diagnostic results supporting the discharge/admit diagnosis, lab results, radiology results, the need for further work-up and treatment in the hospital. 09/16 14:30 Order name: Basic Metabolic Panel [facility] 09/16 14:30 Order name: CBC with Diff [facility] 09/16 14:30 Order name: LFT's [facility] 09/16 14:30 Order name: Magnesium; Complete Time: 16:38 [facility] 09/16 14:30 Order name: NT PRO-BNP; Complete Time: 16:38 [facility] 09/16 14:30 Order name: PT-INR; Complete Time: 15:23 [facility] 09/16 14:30 Order name: Troponin (emerg Dept Use Only); Complete Time: 16:38 [facility] 09/16 14:30 Order name: SARS-COV-2 RT PCR (Document "Date of Onset" if Symptomatic); Complete Time: [facility] 16:38 09/16 14:30 Order name: TSH; Complete Time: 16:38 [facility] 09/16 14:30 Order name: Lipase; Complete Time: 16:38 [facility] 09/16 14:30 Order name: Basic Metabolic Panel; Complete Time: 16:38 [facility] 09/16 14:30 Order name: CBC with Automated Diff; Complete Time: 15:31 [facility] 09/16 14:30 Order name: Liver (Hepatic) Function; Complete Time: 16:38 [facility] 09/17 04:04 Order name: CBC with Automated Diff [facility] 09/16 14:30 Order name: XRAY Chest (1 view); Complete Time: 16:38 [facility] 09/17 04:07 Order name: Protime (+INR) [facility] 09/17 04:12 Order name: Comprehensive Metabolic Panel [facility] 09/17 04:12 Order name: Phosphorus [facility] 09/17 04:12 Order name: Troponin I [facility] 09/17 04:12 Order name: Lipid Profile [facility] 09/17 04:12 Order name: T4 Free [facility] 09/17 04:12 Order name: Magnesium [facility] 09/17 08:05 Order name: Glucose, Ancillary Testing [facility] 09/17 08:28 Order name: Troponin I [facility] 09/17 11:43 Order name: Glucose, Ancillary Testing [facility] 09/17 13:10 Order name: Troponin I [facility] 09/16 14:30 Order name: EKG; Complete Time: 14:31 [facility] 09/16 14:30 Order name: Cardiac monitoring; Complete Time: 14:37 [facility] 09/16 14:30 Order name: EKG - Nurse/Tech; Complete Time: 14:38 [facility] 09/16 14:30 Order name: IV Saline Lock; Complete Time: 15:44 [facility] 09/16 14:30 Order name: Labs collected and sent; Complete Time: 15:44 [facility] 09/16 14:30 Order name: O2 Per Protocol; Complete Time: 14:38 [facility] 09/16 14:30 Order name: O2 Sat Monitoring; Complete Time: 14:38 [facility] 09/16 16:50 Order name: EKG; Complete Time: 16:51 [facility] 09/16 16:50 Order name: EKG - Nurse/Tech [facility] 09/16 19:25 Order name: CONS Physician Consult EDMS EC:42 Rate is 121 beats/min. Rhythm is irregularly irregular. QRS [place] is Normal. NC interval sherry is normal. QRS interval is normal. QT interval is normal. No Q waves. T waves are Normal. No ST changes noted. Clinical impression: Atrial Flutter and No evidence of ischemia. Interpreted by me. Reviewed by me. Administered Medications: 15:00 Drug: NS 0.9% 1000 ml Route: IV; Rate: 1 bolus; Site: right antecubital; jl7 15:00 Drug: NS 0.9% 1000 ml Route: IV; Rate: 125 ml/hr; Site: left antecubital; jl7 15:10 Drug: Magnesium Sulfate 1 grams Route: IVPB; Infused Over: 1 hrs; Site: right jl7 antecubital; 15:10 Drug: Lopressor (metoprolol) 5 mg Route: IVP; Site: right antecubital; jl7 15:15 Drug: Pepcid (famotidine) 20 mg Route: IVP; Site: right antecubital; jl7 15:20 Drug: Lopressor (metoprolol) 5 mg Route: IVP; Site: right antecubital; jl7 15:23 Drug: Lopressor (metoprolol TARTRATE) 50 mg Route: PO; jl7 15:32 Drug: Digoxin 0.5 mg Route: IVP; Site: right antecubital; jl7 15:40 Drug: Lopressor (metoprolol) 5 mg Route: IVP; Site: right antecubital; jl7 19:40 CANCELLED (Physician Discretion; perr): Lasix (furosemide) 40 mg IVP once; give over 2 bs2 minutes Disposition Summary: 09/16/21 16:50 Hospitalization Ordered Hospitalization Status: Inpatient Admission(09/16/21 16:50) sherry Provider: Humberto Kay(09/16/21 16:50) sherry Condition: Fair(09/16/21 16:50) sherry Problem: new(09/16/21 16:50) sherry Symptoms: have improved(09/16/21 16:50) sherry Bed/Room Type: Standard(09/16/21 16:50) sherry Location: Telemetry/MedSurg (Inpatient)(09/17/21 12:00) bd Room Assignment: 219(09/17/21 12:00) bd Diagnosis - Persistent atrial fibrillation sherry - Systolic (congestive) heart failure sherry - Morbid (severe) obesity due to excess calories sherry Discharge Instructions: - Discharge Summary Sheet jl7 Forms: - Medication Reconciliation Form sherry - SBAR form jl7 Signatures: Dispatcher [employer] EDMS Elizabeth Flores Corey, MD MD cha Leal, Jahala, RN RN jl7 Ulises Urena RN RN ll1 Jovana Weller RN RN bs2 Corrections: (The following items were deleted from the chart) 15:18 15:17 Inpatient Admission sherry sherry 15:18 15:17 Nico Tobard sherry sherry 15:18 15:17 Telemetry/MedSurg (Inpatient) sherry sherry 15:18 15:17 Fair sherry sherry 15:18 15:17 new sherry sherry 15:18 15:17 have improved sherry sherry 15:18 15:17 Standard sherry sherry 15:18 15:17 sherry sherry 15:18 15:17 Third [oculomotor] nerve palsy, left eye sherry sherry 15:18 15:17 Cerebral infarction, unspecified sherry sherry 15:18 15:17 Essential (primary) hypertension sherry sherry 17:06 16:50 Telemetry/MedSurg (Inpatient) sherry bd 17:06 16:50 sherry bd 19:40 16:39 Lasix (furosemide) 40 mg IVP once; give over 2 minutes ordered. sherry bs2 19:40 19:39 Lasix (furosemide) 40 mg IVP once; give over 2 minutes ordered. bs2 bs2 09/17 12:09/16 17: [facility] ER HOLD bd bd 09/17 1209/16 17: ERHOLD- bd bd
--- NOTE | 2021-09-16 15:17 | ER ---
Nurse's Notes [facility] Name: Charity Jacob Age: 46 yrs Sex: Female : 1975 Arrival Date: 09/16/2021 Time: 14:25 Bed 16 Private MD: Diagnosis: Persistent atrial fibrillation;Systolic (congestive) heart failure;Morbid (severe) obesity due to excess calories Presentation: 09/16 14:26 Chief complaint: EMS states: Found with HR 248 in SVT. 18 G L EJ, gave adenosine 12 mg ll1 x 2. Now HR 150-170's appears to be in bigeminy now per EMS. Tailbone decub with pain. Just admitted/intubated 2 weeks ago. Coronavirus screen: Client denies travel out of the [place] in the last 14 days. At this time, the client does not indicate any symptoms associated with coronavirus-19. Ebola Screen: Patient denies travel to an Ebola-affected area in the 21 days before illness onset. Initial Sepsis Screen: Does the patient meet any 2 criteria? No. Patient's initial sepsis screen is negative. Does the patient have a suspected source of infection? Yes: Skin breakdown/wound. Risk Assessment: Do you want to hurt yourself or someone else? Patient reports no desire to harm self or others. Onset of symptoms was September 16, 2021. 14:26 Method Of Arrival: EMS [facility] 14:26 Acuity: MAIKEL 2 ll1 SETTLEMENT AGENT: 14:33 LMP N/A - Post-menopause jl7 Historical: - Allergies: 14:28 PENICILLINS; ll1 - PMHx: 14:28 A fib; CHF; lymphedema; ll1 - Immunization history:: Adult Immunizations up to date. - Social history:: Smoking status: Patient denies any tobacco usage or history of. Screenin:15 Abuse screen: Denies threats or abuse. Denies injuries from another. Nutritional jl7 screening: No deficits noted. Tuberculosis screening: No symptoms or risk factors identified. Fall Risk IV access (20 points). Total Sweeney Fall Scale indicates No Risk (0-24 pts). Vital Signs: 14:33 BP 146 / 102; Pulse 133; Resp 15; Pulse Ox 9% 2 lpm ; jl7 14:34 Temp 97.4; jl7 15:00 BP 121 / 90; Pulse 120; Resp 22; Pulse Ox 100% on 2 lpm NC; jl7 15:15 BP 132 / 105; Pulse 107; Resp 21; Pulse Ox 100% on 2 lpm NC; jl7 15:36 BP 115 / 83; Pulse 108; Resp 28; Pulse Ox 100% on 2 lpm NC; jl7 19:14 BP 104 / 47; Pulse 90; Resp 20; Pulse Ox 100% on R/A; jt3 ED Course: 14:25 Patient arrived in ED. ll1 14:27 Joe Murphy MD is Attending Physician. [facility] 14:28 Triage completed. ll1 14:28 Arm band placed on Patient placed in an exam room, on a stretcher. ll1 14:32 Kevin Kinsey, RULA is Primary Nurse. 7 14:45 Initial lab(s) drawn, by vt, sent to lab. Inserted saline lock: 20 gauge in right jl7 antecubital area, using aseptic technique. Blood collected. 14:56 Patient has correct armband on for positive identification. Bed in low position. Call [facility] light in reach. Side rails up X2. Adult w/ patient. Warm blanket given. hall monitor on. Pulse ox on. NIBP on. 14:56 EKG done, by ED staff, reviewed by Joe Murphy MD. [facility] 15:11 Munira Tobar MD is Hospitalizing Provider. [facility] 15:56 XRAY Chest (1 view) In Process Unspecified. EDMS 15:56 bariatric bed ordered, confirmation number......[id number]. bd 16:47 Humberto Kay MD is Hospitalizing Provider. sherry Administered Medications: 15:00 Drug: NS 0.9% 1000 ml Route: IV; Rate: 1 bolus; Site: right antecubital; jl7 15:00 Drug: NS 0.9% 1000 ml Route: IV; Rate: 125 ml/hr; Site: left antecubital; jl7 15:10 Drug: Magnesium Sulfate 1 grams Route: IVPB; Infused Over: 1 hrs; Site: right jl7 antecubital; 15:10 Drug: Lopressor (metoprolol) 5 mg Route: IVP; Site: right antecubital; jl7 15:15 Drug: Pepcid (famotidine) 20 mg Route: IVP; Site: right antecubital; jl7 15:20 Drug: Lopressor (metoprolol) 5 mg Route: IVP; Site: right antecubital; 7 15:23 Drug: Lopressor (metoprolol TARTRATE) 50 mg Route: PO; jl7 15:32 Drug: Digoxin 0.5 mg Route: IVP; Site: right antecubital; jl7 15:40 Drug: Lopressor (metoprolol) 5 mg Route: IVP; Site: right antecubital; 7 19:40 CANCELLED (Physician Discretion; perr): Lasix (furosemide) 40 mg IVP once; give over 2 bs2 minutes Outcome: 15:17 Decision to Hospitalize by Provider. sherry 16:50 Decision to Hospitalize by Provider. [facility] 09/17 13:57 Patient left the ED. iw Signatures: Dispatcher [employer] EDMS Elizabeth Flores Corey, MD MD cha Williams, Irene, Maty Heredia RN [facility] Kevin Kinsey RN RN jl7 Ulises Urena RN RN ll1 Ajay Garner RN RN jt3 Jovana Weller RN bs2 Corrections: (The following items were deleted from the chart) 09/16 15:47 15:30 Lopressor (metoprolol TARTRATE) 50 mg PO jl7 jl 15:50 15:32 BP 143 / 108; Pulse 109bpm; Resp 26bpm; Pulse Ox 100% 2 lpm Nasal Cannula; [place] [id number]
[2021-09-16 15:25] LABS: Lymphocytes % 13.1 % (15.3-44.8); MPV 7.9 fL (7.6-11.3); RBC Red Blood Cell Count 5.09 M/uL (3.86-4.86)
[2021-09-16] MEDS ORDERED: METOPROLOL TAR 50 MG TAB ONE (15:41)
[2021-09-16] MEDS ORDERED: DIGOXIN 0.25 MG/ML AMP ONE (15:42)
[2021-09-16] MEDS ORDERED: FAMOTIDINE 20 MG/2 ML VIAL IV ONE (15:42)
[2021-09-16] MEDS ORDERED: MAGNESIUM SULFATE 1 gm IVPB 1 GM/100 ML BAG IV ONE (15:42)
[2021-09-16] MEDS ORDERED: NA CHLORIDE 0.9% 2,000 ML ONE (15:42)
[2021-09-16] MEDS ORDERED: METOPROLOL TARTRATE 5 MG/5 ML INJ IV ONE (15:42)
--- NOTE | 2021-09-16 16:06 | RAD REPORT ---
EXAM DESCRIPTION: RAD - Chest Single View - 09/16/2021 3:56 pm CLINICAL HISTORY: Cough;Palpitations COMPARISON: Chest Single View dated 09/03/2021; Chest Single View dated 08/01/2021; Chest Single View dated 07/01/2021; Chest Single View dated 06/29/2021 FINDINGS: Lines: None. Lungs: Limited by patient's body habitus. Diffuse prominence of the pulmonary interstitium. Pleural: No significant pleural effusions or pneumothorax. Cardiac: Cardiomegaly. Bones: No acute fractures. Other: IMPRESSION: Diffuse increased prominence of the pulmonary interstitium which may reflect vascular co ngestion and/or pulmonary edema. Cardiomegaly is present. No consolidative airspace disease is appare nt.
[2021-09-16 16:35] LABS: ALT/SGPT 12 U/L (12-78); AST/SGOT 13 U/L (15-37); Albumin 2.6 g/dL (3.4-5.0); Alkaline Phosphatase 61 U/L (45-117); BUN Blood Urea Nitrogen 5 mg/dL (7-18); Bicarbonate 27 mmol/L (21-32); Bilirubin Direct 0.3 mg/dL (0-0.2); Bilirubin Total 0.5 mg/dL (0.2-1.0); Glucose Level 125 mg/dL (74-106); Lipase 40 U/L (73-393); Magnesium 1.9 mg/dL (1.8-2.4); NT PRO-BNP 2689 pg/mL (<125); Potassium 3.9 mmol/L (3.5-5.1); Protein, Total 8.3 g/dL (6.4-8.2); Sodium Level 140 mmol/L (136-145); Troponin (Emerg Dept Use Only) < 0.02 ng/mL (0.0-0.045)
[2021-09-16] MEDS ORDERED: ENOXAPARIN 100 MG/ML SYR SQ ONE (17:45)
[2021-09-16] MEDS ORDERED: WARFARIN SODIUM 5 MG TAB ONE (17:48)
[2021-09-16] MEDS ORDERED: FUROSEMIDE 40 MG/4 ML VIAL ONE (17:48)
--- NOTE | 2021-09-16 21:13 | P.HP ---
Certification for Inpatient Patient admitted to: Observation With expected LOS: <2 Midnights Patient will require the following post-hospital care: None Practitioner: I am a practitioner with admitting privileges, knowledge of patient current condition, hospital course, and medical plan of care. Services: Services provided to patient in accordance with Admission requirements found in Title 42 Section 412.3 of the Code of Federal Regulations Patient History Date of Service: 09/16/21 Reason for admission: afib History of Present Illness: Ms. Jacob is a 46 yo morbidly obese F with CHF, HTN, chronic afib on warfarin, PCOS, fibromyalgia and asthma who presents with irregular heartbeart. During physical therapy today, she started having heart palpitations to the 140s. She also reports cough and SOB and malaise beginning this weekend. She received her first dose of the Moderna vaccine on Thursday. She received metoprolol PO and IV in the ED, with improvement in heart rate to the 80s. She takes PO metoprolol and warfarin at home. She has PT, HH, and woundcare at home. BNP 2689. INR 1.5, received 10mg of coumadin in the ED. Ejection fraction 07/2021 was 37%. CXR IMPRESSION: Diffuse increased prominence of the pulmonary interstitium which may reflect vascular congestion and/or pulmonary edema. Cardiomegaly is present. No consolidative airspace disease is apparent. Allergies Penicillins Allergy (Verified 07/18/21 22:08) Hives/Rash Home Medications: Acetaminophen [Tylenol] 650 mg PO Q4H PRN 07/18/21 Magnesium Oxide [Mag 0X*] 400 mg PO BID #60 tab 08/08/21 Nystatin Powder [Mycostatin (Powder)*] 1 appl TOP BID #2 btl 08/08/21 Zinc Sulfate [Zinc Sulfate*] 220 mg PO DAILY #30 cap 08/08/21 Potassium Oral Tab [Klor-Con 10 mEq Tab*] 10 meq PO BID 09/03/21 Cefdinir [Omnicef] 300 mg PO BID #20 capsule 09/07/21 Warfarin Sodium [Coumadin*] 4 mg PO DAILY #30 tab 09/07/21 - Past Medical/Surgical History Diabetic: Yes -: afib/aflutter -: HTN -: HLD -: morbid obesity -: DM -: asthma -: CARLOS -: anxiety -: stage 2 decubitus ulcer L buttocks -: CHF -: fibromyalgia -: PCOS -: cornea transplant Psychosocial/ Personal History: Unable to obtain - Social History Smoking Status: Never smoker Alcohol use: No CD- Drugs: No Caffeine use: No Place of Residence: Home Review of Systems 10-point ROS is otherwise unremarkable General: Malaise, As per HPI Eyes: Unremarkable ENT: Unremarkable Respiratory: Cough, Shortness of Breath, SOB with Excertion Cardiovascular: Palpitations Gastrointestinal: Unremarkable Genitourinary: Unremarkable Musculoskeletal: Unremarkable Integumentary: Other (wound on buttock) Neurological: Unremarkable Lymphatics: Unremarkable Physical Examination - Physical Exam General: Alert, In no apparent distress, Oriented x3, Cooperative, Obese HEENT: Atraumatic, PERRLA, Mucous membr. moist/pink, EOMI, Sclerae nonicteric Neck: Supple, 2+ carotid pulse no bruit, No LAD, Without JVD or thyroid abnorm ality Respiratory: Normal air movement, Crackles/rales Cardiovascular: No edema, No gallops, No rubs, No murmurs, Irregular heart rate/rhythm Capillary refill: <2 Seconds Gastrointestinal: Normal bowel sounds, No tenderness Musculoskeletal: No tenderness Integumentary: Other (wound dressed and bandaged) Neurological: Normal speech, Normal tone, Normal affect Lymphatics: No axilla or inguinal lymphadenopathy - Studies Laboratory Data (last 24 hrs) 09/16/21 14:57: PT 17.3 H, INR 1.50 09/16/21 14:57: WBC 6.20 D, Hgb 11.9 L, Hct 39.0, Plt Count 368 09/16/21 14:57: Sodium 140, Potassium 3.9, BUN 5 L, Creatinine 0.87, Glucose 125 H, Magnesium 1.9, Total Bilirubin 0.5, AST 13 L, ALT 12, Alkaline Phosphatase 61, Lipase 40 L Assessment and Plan - Problems (Diagnosis) (1) Subtherapeutic international normalized ratio (INR) Current Visit: Yes Status: Acute (2) Abscess of buttock Current Visit: No Status: Chronic (3) Congestive heart failure Current Visit: No Status: Acute Qualifiers: Heart failure type: unspecified Heart failure chronicity: acute on chronic Qualified Code(s): I50.9 - Heart failure, unspecified (4) History of atrial fibrillation Current Visit: No Status: Acute (5) HTN (hypertension) Current Visit: No Status: Chronic Qualifiers: Hypertension type: primary hypertension Qualified Code(s): I10 - Essential (primary) hypertension (6) Morbid obesity Current Visit: No Status: Chronic - Plan cardiology consulted, on tele continue PO metoprolol, IV lasix BID daily weights, low sodium diet, fluid restrict, O2 as needed continue coumadin, monitor INR daily wound care consulted, continue home antibiotics reconcile and continue home medications Discharge Plan: Home Plan to discharge in: 24 Hours - Advance Directives Does patient have a Living Will: No Does patient have a Durable POA for Healthcare: No - Code Status/Comfort Care Code Status Assessed: Yes (full code ) Critical Care: No Time Spent Managing Pts Care (In Minutes): 70
[2021-09-16] MEDS ORDERED: ACETAMINOPHEN 500 MG TAB PO PRN (21:14)
[2021-09-16] MEDS: INSULIN -REGULAR HUMAN 50 UNIT/0.5 ML ML SQ SCH (21:14)
[2021-09-16] MEDS ORDERED: ONDANSETRON 4 MG/2 ML VIAL IV PRN (21:14)
[2021-09-16] MEDS ORDERED: HYDRALAZINE HCL 20 MG/ML VIAL IV PRN (21:14)
[2021-09-16 21:43] VITALS: BMI 76.8
[2021-09-17 03:55] LABS: Protime INR 1.68
[2021-09-17 03:57] LABS: Absolute Lymphocytes (CBC) 1.4 K/uL (0.7-4.9); Basophils % 0.8 % (0-1.3); Hematocrit 35.7 % (36.0-45.0); Lymphocytes % 30.6 % (15.3-44.8); MPV 8.1 fL (7.6-11.3); RBC Red Blood Cell Count 4.64 M/uL (3.86-4.86)
[2021-09-17 04:12] LABS: ALT/SGPT 8 U/L (12-78); AST/SGOT 10 U/L (15-37); Albumin 2.1 g/dL (3.4-5.0); Alkaline Phosphatase 53 U/L (45-117); BUN Blood Urea Nitrogen 5 mg/dL (7-18); Bicarbonate 28 mmol/L (21-32); Bilirubin Total 0.5 mg/dL (0.2-1.0); Glucose Level 89 mg/dL (74-106); HDL Cholesterol 27 mg/dL (40-60); LDL Cholesterol, Calculated 35 (<130); Magnesium 2.1 mg/dL (1.8-2.4); Phosphorus 3.7 mg/dL (2.5-4.9); Potassium 3.9 mmol/L (3.5-5.1); Protein, Total 7.5 g/dL (6.4-8.2); Sodium Level 139 mmol/L (136-145); Troponin I 0.05 ng/mL (0.0-0.045)
[2021-09-17] MEDS: METOPROLOL TAR 25 MG TAB PO SCH ×2 (05:35→16:02)
[2021-09-17] MEDS ORDERED: METHYLPREDNISOLONE 40 MG INJ ONE (06:23)
[2021-09-17] MEDS: INSULIN -REGULAR HUMAN 50 UNIT/0.5 ML ML SQ SCH ×4 (07:30→21:00)
[2021-09-17] MEDS ORDERED: POTASSIUM CL SA 10 MEQ TAB PO ONE ×2 (07:46→10:27)
[2021-09-17] MEDS: POTASSIUM CL SA 10 MEQ TAB PO ONE ×2 (07:55→09:00)
[2021-09-17] MEDS ORDERED: PNEUMOCOCCAL VACCINE 0.5 ML IMVAC ONE (08:00)
[2021-09-17] MEDS ORDERED: INFLUENZA VACCINE (for 6+ mo) 0.5 ML DOSE IMVAC ONE (08:00)
[2021-09-17] MEDS: FUROSEMIDE 20 MG/ 2ML VIAL IV SCH ×2 (09:00→16:02)
[2021-09-17] MEDS ORDERED: FUROSEMIDE 20 MG/ 2ML VIAL ONE (10:27)
--- NOTE | 2021-09-17 11:48 | EKG ---
Test Date: 2021-09-16 Test Time: 14:29:19 Dental Office Assistant: OBDULIO MEASUREMENT RESULTS: Intervals: Rate: 121 OK: QRSD: 112 QT: 336 QTc: 477 Tow: P: -78 OK: QRS: 49 T: -37 INTERPRETIVE STATEMENTS: Atrial flutter with 2:[address] abnormality Abnormal QRS-T angle, consider primary T wave abnormality Abnormal ECG Compared to ECG 09/03/2021 20:30:26 T-wave abnormality now present ST (T wave) deviation still present Electronically Signed On 09-17-21 11:46:15 CDT by Sav Domínguez
[2021-09-17] MEDS ORDERED: WARFARIN SODIUM 4 MG TAB PO SCH (17:00)
--- NOTE | 2021-09-17 17:28 | P.PN ---
Subjective Date of Service: 09/17/21 Chief Complaint: afib Patient denies any complain at this time. Her heart rate has improved. She states at baseline she is able to transfer without support and ambulate with a walker. Physical Examination - Vital Signs Temperature: 97.7 F Blood Pressure: 145/96 Pulse: 111 Respirations: 20 Pulse Ox (%): 97 - Physical Exam General: Alert, In no apparent distress, Oriented x3, Obese (Morbidly obese) HEENT: Mucous membr. moist/pink Neck: Supple, JVD not distended Respiratory: Clear to auscultation bilaterally, Diminished Cardiovascular: No edema, Normal S1 S2, Irregular heart rate/rhythm Gastrointestinal: Soft and benign, Non-distended Musculoskeletal: No swelling Integumentary: Other (L buttocks DU) Neurological: Normal speech, Normal strength at 5/5 x4 extr, Cranial nerves 3-12 intact Assessment And Plan - Current Problems (Diagnosis) (1) Atrial fibrillation with RVR Current Visit: Yes Status: Acute (2) Chronic systolic heart failure Current Visit: Yes Status: Acute (3) Decubitus ulcer, buttock Current Visit: Yes Status: Acute (4) Subtherapeutic international normalized ratio (INR) Current Visit: Yes Status: Acute (5) History of atrial fibrillation Current Visit: No Status: Acute (6) Obesity hypoventilation syndrome Current Visit: No Status: Acute (7) HTN (hypertension) Current Visit: No Status: Chronic Qualifiers: Hypertension type: primary hypertension Qualified Code(s): I10 - Essential (primary) hypertension (8) Morbid obesity Current Visit: No Status: Chronic - Plan Cardiology input appreciated. Dr. Domínguez recommend rate control. Continue metoprolol. Continue warfarin and adjust dose. Monitor PT and INR. BiPAP at night and during sleep. Monitor and optimize electrolytes-potassium and Magnesium. Local wound care.
[2021-09-18 03:59] LABS: BUN Blood Urea Nitrogen 5 mg/dL (7-18); Bicarbonate 32 mmol/L (21-32); Glucose Level 99 mg/dL (74-106); Potassium 3.4 mmol/L (3.5-5.1); Sodium Level 140 mmol/L (136-145)
[2021-09-18] MEDS: METOPROLOL TAR 25 MG TAB PO SCH (05:11)
[2021-09-18] MEDS: INSULIN -REGULAR HUMAN 50 UNIT/0.5 ML ML SQ SCH (07:30)
[2021-09-18 08:58] VITALS: O2SAT 95
[2021-09-18] MEDS ORDERED: POTASSIUM CL SA 10 MEQ TAB PO ONE (09:00)
[2021-09-18] MEDS ORDERED: MUPIROCIN 2% OINT 22GM TUBE TOP SCH (09:00)
[2021-09-18] MEDS: FUROSEMIDE 20 MG/ 2ML VIAL IV SCH (09:03)
[2021-09-18 09:07] VITALS: BP 123/61
[2021-09-18 09:51] VITALS: TEMP 97.6
--- NOTE | 2021-09-18 10:12 | P.DS ---
Admission Date: 09/16/21 Discharge Date: 09/18/21 Disposition: ROUTINE DISCHARGE Discharge Condition: FAIR Reason for Admission: afib - Problems (1) Atrial fibrillation with RVR Current Visit: Yes Status: Acute (2) Chronic systolic heart failure Current Visit: Yes Status: Acute (3) Decubitus ulcer, buttock Current Visit: Yes Status: Acute (4) Subtherapeutic international normalized ratio (INR) Current Visit: Yes Status: Acute (5) History of atrial fibrillation Current Visit: No Status: Acute (6) Obesity hypoventilation syndrome Current Visit: No Status: Acute (7) HTN (hypertension) Current Visit: No Status: Chronic Qualifiers: Hypertension type: primary hypertension Qualified Code(s): I10 - Essential (primary) hypertension (8) Morbid obesity Current Visit: No Status: Chronic Brief History of Present Illness: 46 yo morbidly obese woman with CHF, HTN, chronic afib on warfarin, PCOS, fibromyalgia and asthma presented with irregular heartbeart. She started having heart palpitations with HR up to the 140s. She received her first dose of the Moderna vaccine a few days prior to onset of her symptoms. She received metoprolol PO and IV in the ED, with improvement in heart rate to the 80s. She takes PO metoprolol and warfarin at home. She has PT, HH, and woundcare at home. BNP 2689. INR 1.5, received 10mg of coumadin in the ED. Ejection fraction 07/2021 was 37%. Chest x-ray done in the emergency department suggested pulmonary vascular congestion. Patient hospitalized for further management. Hospital Course: Patient admitted to the medical floor and kept on metoprolol 25 mg b.i.d. Her blood pressure was stable with the metoprolol. Heart rate was in the 90s. Patient given 10 mg Coumadin in the ED. INR has trended up. Cardiology consulted. Case discussed with Dr. Domínguez who recommended rate control of patient atrial fibrillation with Coumadin. Weight loss also recommended. Patient was also treated with IV Lasix for pulmonary vascular congestion. She was also seen by wound care for buttocks wound. Patient follows with wound Care Clinic regarding the wound. Patient deemed clinically stable for discharge. Vital Signs/Physical Exam: Temp Pulse Resp BP Pulse Ox 97.6 F 91 H 20 123/61 95 09/18/21 08:00 09/18/21 09:03 09/18/21 08:00 09/18/21 09:03 09/18/21 08:00 General: Alert, In no apparent distress, Obese HEENT: Mucous membr. moist/pink Neck: JVD not distended Respiratory: Clear to auscultation bilaterally, Diminished Cardiovascular: No edema, Normal S1 S2, Irregular heart rate/rhythm Gastrointestinal: Soft and benign, Non-distended, No tenderness Musculoskeletal: No swelling Integumentary: No rashes Neurological: Normal strength at 5/5 x4 extr Laboratory Data at Discharge: WBC 4.70 K/uL (4.3-10.9) D 09/17/21 03:33 Hgb 10.7 g/dL (12.0-15.0) L 09/17/21 03:33 Hct 35.7 % (36.0-45.0) L 09/17/21 03:33 Plt Count 367 K/uL (152-406) 09/17/21 03:33 PT 19.4 SECONDS (9.5-12.5) H 09/17/21 03:33 INR 1.68 09/17/21 03:33 Sodium 140 mmol/L (136-145) 09/18/21 02:57 Potassium 3.4 mmol/L (3.5-5.1) L 09/18/21 02:57 BUN 5 mg/dL (7-18) L 09/18/21 02:57 Creatinine 0.56 mg/dL (0.55-1.3) 09/18/21 02:57 Glucose 99 mg/dL (74-106) 09/18/21 02:57 Phosphorus 3.7 mg/dL (2.5-4.9) 09/17/21 03:33 Magnesium 2.1 mg/dL (1.8-2.4) 09/17/21 03:33 Total Bilirubin 0.5 mg/dL (0.2-1.0) 09/17/21 03:33 AST 10 U/L (15-37) L 09/17/21 03:33 ALT 8 U/L (12-78) L 09/17/21 03:33 Alkaline Phosphatase 53 U/L (45-117) 09/17/21 03:33 Troponin I 0.04 ng/mL (0.0-0.045) 09/17/21 12:35 Triglycerides 105 mg/dL (<150) 09/17/21 03:33 Cholesterol 83 mg/dL (<200) 09/17/21 03:33 HDL Cholesterol 27 mg/dL (40-60) L 09/17/21 03:33 Cholesterol/HDL Ratio 3.07 09/17/21 03:33 Lipase 40 U/L (73-393) L 09/16/21 14:57 Home Medications: Acetaminophen [Tylenol] 650 mg PO Q4H PRN 07/18/21 Magnesium Oxide [Mag 0X*] 400 mg PO BID #60 tab 08/08/21 Nystatin Powder [Mycostatin (Powder)*] 1 appl TOP BID #2 btl 08/08/21 Zinc Sulfate [Zinc Sulfate*] 220 mg PO DAILY #30 cap 08/08/21 Potassium Oral Tab [Klor-Con 10 mEq Tab*] 10 meq PO BID 09/03/21 Cefdinir [Omnicef] 300 mg PO BID #20 capsule 09/07/21 Warfarin Sodium [Coumadin*] 4 mg PO DAILY #30 tab 09/07/21 Furosemide [Lasix] 40 mg PO DAILY #30 tab 09/18/21 Metoprolol Tartrate [Lopressor*] 25 mg PO BID 6AM 6PM #60 tab 09/18/21 New Medications: Furosemide [Lasix] 40 mg PO DAILY #30 tab Metoprolol Tartrate [Lopressor*] 25 mg PO BID 6AM 6PM #60 tab Diet: AHA Activity: Ad shirin Followup: Sav Domínguez MD [ACTIVE - CAN ADMIT] - 1-2 Weeks (Call to schedule appointment.) Jessica Miguel NP [Primary Care Provider] - 1-2 Weeks (Call to schedule appointment.) Time spent managing pt's care (in minutes): 35
--- NOTE | 2021-09-23 11:15 | CON ---
Date of Consultation: 09/16/2021 Reason For Consultation: Atrial fibrillation, congestive heart failure, and lymphedema. History Of Present Illness: Ms. Jacob is a 46-year-old woman. She is known to me from previous o ffice visits and admission. Has a history of CHF, AFib, lymphedema. Came in with mostly palpitation s, was found to be in rapid atrial fibrillation. When she has atrial fibrillation, she gets short of breath and she coughs. Denied any PND, orthopnea, pedal edema, or syncope. Denied any fever or chi lls or chest pain. Allergies: SHE IS ALLERGIC TO PENICILLIN. Review of Systems: Negative. Social History: Negative. Family History: Noncontributory. Medications: At home include Lasix, metoprolol, warfarin, zinc, potassium, nystatin, magnesium, and Omnicef as well as Tylenol. Physical Examination: Vital Signs: Stable, afebrile, atrial fibrillation at rate 108, blood pressure 115/83. HEENT: Negative. Neck: Supple with no bruit. Chest: Clear. Cardiac: Revealed atrial fibrillation. Abdomen: Benign. Extremities: Revealed chronic lymphedema. Diagnostic Data: Fairly unremarkable. Her INR was low at 1.5. Potassium was 3.9. GFR is 71. Gluc ose is 125. Her BNP was 2689 with a troponin of 0.05. She was COVID negative. EKG showed atrial fi brillation or flutter, rate of 121. Chest x-ray revealed possible pulmonary edema and cardiomegaly. Impression And Plan: 1.Atrial fibrillation, paroxysmal. 2.Congestive heart failure. 3.Lymphedema. The patient is on Lasix, metoprolol, potassium. She is on Coumadin and I agree with her present regimen. We may have to switch to sotalol or amiodarone down the road as far as her atri al fibrillation and maybe consider cardioversion or ablation. I will discuss the case further with Arpit Brambila, but for now, continue beta-blockers, anticoagulation, and Lasix, rate control. There is a plan for now. I will see her in the office as an outpatient as soon as she goes home. ROBERT/GIA Voice ID: [id number] Report ID: [id number]
== END 2021-09-18 14:14 | disposition home health service (06) | DRG 308 ==
LOC: ER 14:24 → ERHOLD 19:25 → 2ND 09-17 13:33
PROVIDERS: ADMIT Internal Medicine; ATTEND Internal Medicine
DX: I48.19 Other persistent atrial fibrillation (principal); I50.23 Acute on chronic systolic (congestive) heart failure; Z68.45 Body mass index [BMI] 70 or greater, adult; L02.31 Cutaneous abscess of buttock; E66.2 Morbid (severe) obesity with alveolar hypoventilation; E28.2 Polycystic ovarian syndrome; M79.7 Fibromyalgia; E78.5 Hyperlipidemia, unspecified; I89.0 Lymphedema, not elsewhere classified; L89.309 Pressure ulcer of unspecified buttock, unspecified stage; J45.909 Unspecified asthma, uncomplicated; R09.89 Other specified symptoms and signs involving the circulatory and respiratory systems; Z79.899 Other long term (current) drug therapy; Z88.0 Allergy status to penicillin; Z79.01 Long term (current) use of anticoagulants; Z94.7 Corneal transplant status; Z20.822 Contact with and (suspected) exposure to COVID-19
CPT/HCPCS: 36415; 71045; 80048; 80053; 80061; 80076; 82947; 83690; 83735; 83880; 84100; 84439; 84443; 84484; 85025; 85610; 93005; 94760; 96374; 96375; 99251; 99285; J1160; J1650; J1940; J2920; J3475; J7030; U0003

== ENCOUNTER 2021-11-30 19:12 | Inpatient (IN) | payer BC ==
--- OUTSIDE RECORDS SUMMARY | 2021-11-30 19:19 | XMS REPORT | Continuity of Care Document ---
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 00:00:00 [facility] 2021-08-15 2021-08-15 Outpatient [facility] [id number] [place] 00:00:00 23:59:00 [facility] 2021-07-25 2021-07-25 Outpatient [facility], [facility] [id number] [place] 00:00:00 00:00:00 [facility] 2021-07-19 2021-07-19 Outpatient HEBERTX, [facility] [id number] [place] 00:00:00 00:00:00 [facility] 2021-07-11 2021-07-18 Inpatient EM Nickolas, HCAPM INTE.02 [id number] [facility] 02:31:00 19:10:00 Oladipo 40 [facility] 2021-07-11 2021-07-18 Inpatient EM Nickolas, HCAPM INTE.02 [id number] [facility] 02:31:00 19:10:00 Trepo [id number] [facility] 2021-07-12 2021-07-12 Outpatient [facility] [id number] [place] 00:00:00 00:00:00 [facility] 2021-07-11 2021-07-11 Outpatient Vargas, HCACL LABO [id number] [facility] 00:50:00 00:50:00 Ruddy [id number] [facility] 2021-07-10 2021-07-10 Emergency EM Vargas, HCAPM EMERALD [id number] [facility] 23:17:00 23:17:00 Ruddy [id number] [facility] 2021-06-27 2021-06-27 Outpatient APRIL, [facility] [id number] [place] 00:00:00 00:00:00 [facility] 2021-06-27 2021-06-27 Outpatient ARLENEA [facility] [id number] [place] 00:00:00 00:00:00 , SARAH Casas 2021-06-25 2021-06-25 Outpatient FILOMENA, [facility] [id number] [place] 00:00:00 00:00:00 [facility] 2021-06-24 2021-06-24 Clinical Kiran, [facility] [id number] [place] 00:00:00 00:00:00 Case Jessica Brewster [place] 2021-06-20 2021-06-20 [facility] [id number] [place] 16:06:50 17:32:54 ne [facility] 2021-06-20 2021-06-20 Khushbu Donis [facility] [id number] [place] 00:00:00 00:00:00 Only [facility] 2021-06-20 2021-06-20 [facility] [id number] [place] 00:00:00 00:00:00 Triage Alejandra Shoemaker [place] 2021-06-12 2021-06-12 [facility]ici [facility] [id number] [place] 12:53:21 13:29:09 [facility] 2021-06-12 2021-06-12 [facility] [id number] [place] 00:00:00 00:00:00 [facility] 2021-06-06 2021-06-06 [facility] [id number] [place] 06:15:21 13:54:30 [facility] 2021-06-06 2021-06-06 Orders Filomena [facility] [id number] [place] 00:00:00 00:00:00 [facility] 2021-06-04 2021-06-04 [facility] [id number] [place] 06:29:01 06:29:01 [facility] 2021-05-28 2021-05-28 Danielle Toledo, [facility] [id number] [place] 00:00:00 00:00:00 Case Mgt [facility] 2021-05-28 2021-05-28 Clinical Tre, [facility] [id number] [place] 00:00:00 00:00:00 Case Mgt [facility] 2021-05-27 2021-05-27 Clinical Tre, [facility] [id number] [place] 00:00:00 00:00:00 Case Mgt [facility] 2021-05-27 2021-05-27 Clinical Tre, [facility] [id number] [place] 00:00:00 00:00:00 Case Mgt [facility]ie [facility] Nhaeed 2021-05-20 2021-05-25 [facility] [id number] [place] 15:31:00 16:57:00 Encounter [facility] Lachelle Saunders 2021-05-21 2021-05-21 Outpatient [facility] [id number] [place] 07:07:53 07:07:53 [facility] 2021-05-20 2021-05-20 Emergency [facility] [id number] [place] 15:26:47 15:57:43 [facility] 2021-02-21 2021-02-21 Clinical Tre, [facility] [id number] [place] 00:00:00 00:00:00 Case Mgt [facility]ie [facility] Naheed 2021-02-20 2021-02-20 Clinical Tre, [facility] [id number] [place] 00:00:00 00:00:00 Case Mgt [facility]ie [facility] Naheed 2021-02-11 2021-02-19 [facility] Nicola Murray [facility] [id number] [place] 15:09:00 14:20:00 Encounter Marbella Allan 2021-02-14 2021-02-14 Inpatient DUGLAS [facility] [id number] [place] 15:05:12 15:05:16 KIMI Black 2021-02-13 2021-02-13 Outpatient JERRELL [facility] [id number] [place] 12:05:21 12:09:39 MARBELLA Casas 2021-02-11 2021-02-11 Emergency [facility] [id number] Param 18:23:09 19:21:38 Health 2021-02-11 2021-02-11 Emergency [facility] [id number] [place] 17:24:22 17:44:35 Health 2020-12-17 2020-12-17 Letter Kailey [facility] [id number] 00:00:00 00:00:00 (Out) Connie Zhang [facility] [id number] [facility] [id number] MATERNAL [id number] & CHILD 111 [facility] 2020-11-06 2020-11-06 Telephone Kailey [facility] [id number] 00:00:00 00:00:00 Connie Zhang [place] 350.1.13.10 [facility] 4.2.7.2.686 MATERNAL [id number] & CHILD 111 [facility] Results Test Description Test Time Test Comments Results Result Comments Source - XR CHEST 1 V 2021-07-17 17:09:00 [facility] 1975 Sex: F Name: GRAZYNA GOMEZ [facility] : 1975 Age/S: 46 / F [address] [address] Unit #: [id number] Loc: [place] [address] Phys: Darryl Haney MD Acct: [id number] Dis Date: Status: ADM IN PHONE #: [phone] Exam Date: 07/17/2021 1640 FAX #: Reason: SOB EXAMS: CPT: [id number] XR CHEST 1 V 39635 Fluoro Time: DAP (Gy m2): Air Kerma (mGy): STUDY: Chest radiograph HISTORY: Shortness of breath. COMPARISON: 07/12/2021 TECHNIQUE: Frontal view of the chest. SITE: H19 FINDINGS: The cardiac silhouette is enlarged, stable [...] PAGE 1 Signed Report Name: GRAZYNA GOMEZ [facility] : 1975 Age/S: 46 / F [address] [address] Unit #: [id number] Loc: [place] [address] Phys: Darryl Haney MD Acct: [id number] Dis Date: Status: ADM IN PHONE #: [phone] Exam Date: 07/17/2021 1640 FAX #: Reason: SOB EXAMS: CPT: [id number] XR CHEST 1 V 91150 Fluoro Time: DAP (Gy m2): Air Kerma (mGy): <Continued> Technologist: Antonella Walker RT(R) Trnscb Date/Time: 07/17/2021 (1709) [email or web address] Orig Print D/T: S: 07/17/2021 (5838) PAGE 2 Signed Report PROTHROMBIN TIME 2021-07-17 [...] ileaflet mechanical va lve in aortic position.2. [facility] hanical prosthetic valv es (high risk), 2.5 - 3.5 P resence of Lupus Anticoagulant o r Antiphospholipi d Antibodies, Prevention of systemic embolism - Acut e Myocardial Infarction (t o prevent recurrent infar ct). PROTHROMBIN [id number] 11:32:00 Test Item Value Reference Range Interpretation [...] Bileaflet mecha nical valve in aortic position.2. [facility] hanical prosthetic valv es (high risk), 2.5 - 3.5 Presence of Lupus Anticoagu lant or Antiphospholi pid Antibodies, Pre vention of systemic e mbolism - Acute Myocard ial Infarction (t o prevent recurre nt infarct). PROTHROMBIN [id number] 18:18:00 Test Item Value Reference Range Interpretation [...] o prevent recurre nt infarct). CBC W/AUTO [id number] 14:36:00 Test Item Value Reference Range Interpretation [...] code NO DIFF/SCN CRITERIA = MDIFF) RBC [id number] 14:36:00 Test Item Value Reference Range Interpretation Comments HYPOCHROMIA (test code = HYPO) 2+ ON SCAN NONE A POIKILOCYTOSIS (test code = POIK) 2+ ON SCAN NONE A ANISOCYTOSIS (test code = ANISO) 3+ NONE A MICROCYTOSIS (test code = MICR) 3+ ON SCAN NONE A ROULEAUX (test code = ROU) 1+ ON SCAN NONE A CBC W/AUTO [id number] 14:35:00 Test Item Value Reference Range Interpretation [...] NO DIFF/SCN CRITERIA = MDIFF) CBC W/AUTO [id number] 14:35:00 Test Item Value Reference Range Interpretation [...] NO DIFF/SCN CRITERIA = MDIFF) CBC W/AUTO [id number] 13:53:00 Test Item Value Reference Range Interpretation [...] code = DIFF/SCN CRITERIA MDIFF) BASIC METABOLIC [id number] 13:51:00 Test Item Value Reference Range Interpretation [...] code = CA) 8.8 MG/DL 8.5-10.1 N [id number] 13:51:00 Test Item Value Reference Range Interpretation Comments MAGNESIUM (test code = MAG) 2.1 MG/DL 1.8-2.4 N GLUCOSE BEDSIDE [id number] 13:20:00 Test Item Value Reference Range Interpretation Comments GLUCOSE BEDSIDE TESTING (test code 110 mg/dL 70-110 N = GLUBED) PROTHROMBIN [id number] 06:00:00 Test Item Value Reference Range Interpretation [...] (t o prevent recurre nt infarct). VANCOMYCIN [id number] 21:30:00 Test Item Value Reference Range Interpretation Comments VANCOMYCIN TROUGH (test code = 25.2 mcG/ML 10-20 H VANCT) PROTHROMBIN [id number] 06:22:00 Test Item Value Reference Range Interpretation [...] recurre nt infarct). - XR CHEST 1 [id number] 15:50:00 [facility] 1975 Sex: F Name: GRAZYNA GOMEZ [facility] : 1975 Age/S: 46 / F [address] [address] Unit #: [id number] Loc: [place] [address] Phys: Darryl Haney MD Acct: [id number] Dis Date: Status: ADM IN PHONE #: [phone] Exam Date: 07/12/2021 1450 FAX #: Reason:sob EXAMS: CPT: [id number] XR CHEST 1 V 78421 Fluoro Time: DAP (Gy m2): Air Kerma [...] MD PAGE 1 Signed Report Name[facility] 1975 Age/S: 46 / F [address] [address] Unit #: [id number] Loc: [place] [address] Phys: Darryl Haney MD Acct: [id number] Dis Date: Status: ADM INPHONE #: [phone] Exam Date: 07/12/2021 1450 FAX #: Reason: sob EXAMS: CPT: [id number] XR CHEST 1 V 69648 FluoroTime: DAP (Gy m2): Air Kerma (mGy): <Continued> Technologist: Karen Mathews, RT(R)(CT); Vignesh Redd, RT(R)(CT); .Trnscb Date/Time: 07/12/2021 (6650) [email or web address] Orig Print D/T: S: 07/12/2021 (3890) PAGE 2 Signed ReportBASIC METABOLIC PANEL 2021-07-12 [...] 8.6 MG/DL 8.5-10.1 N CA) BASIC METABOLIC [id number] 05:18:00 Test Item Value Reference Range Interpretation [...] = CA) 8.6 MG/DL 8.5-10.1 N PROTHROMBIN [id number] 05:07:00 Test Item Value Reference Range Interpretation [...] o prevent recurre nt infarct). ARTERIAL BLOOD [id number] 12:36:00 Test Item Value Reference Range Interpretation [...] (test No Circ.CHK POSITIVE code = MODALL) PaO2/[id number] 12:36:00 Test Item Value Reference Range Interpretation Comments PaO2/FiO2 (test code mm/Hg See_Comment [Autom ated message] The = [id number]) system which ge nerated this result transmit sandy reference range : 200. The reference range was not used to interpr et this result as lucila l/abnormal. ARTERIAL BLOOD [id number] 12:36:00 Test Item Value Reference Range Interpretation [...] (test No Circ.CHK POSITIVE code = MODALL) PaO2/[id number] 12:36:00 Test Item Value Reference Range Interpretation Comments PaO2/FiO2 (test 202.8 mm/Hg See_Comment [Automated message] The code = [id number]) system [facility] [employer] generated this result tra nsmitted reference range : 200. The reference r will was not used to int erpret this result as normal/abnormal . PROTHROMBIN [id number] 05:50:00 Test Item Value Reference Range Interpretation Comments PT PATIENT (test 23.9 SECONDS 9.3-12.9 H code = PTP) INTERNATIONAL NORMAL 2.10 INR Unit 0.8-1.2 H TARGET RATIO (test code = INR BY IN DICATION INR) Indication INR1. Prophyl axis of venous thrombos is 2.0 - 3. 0 (orthopedic yinka amleia), Prophylaxis of venous thrombos is (other than [...] o prevent recurre nt infarct). THROMBOPLASTIN TIME [id number] 05:50:00 Test Item Value Reference Range Interpretation Comments THROMBOPLASTIN TIME PARTIAL 30.5 SECONDS 26-35 N (test code = PTT) [id number] 05:50:00 Test Item Value Reference Range Interpretation [...] STS AND APPROPRIATECLIN ICAL EUALUATIONS. RULE OUT FL [id number] 05:42:00 Test Item Value Reference Range Interpretation [...] yby method. UA RFLX MICR CULT IF [id number] 05:13:00 Test Item Value Reference Range Interpretation [...] RiskForSepsis-no oth srcUA RFLX MICR CULT IF [id number] 05:11:00 Test Item Value Reference Range Interpretation [...] for culture: RiskForSepsis-no oth srcNT PRO-BRAIN NATRIURETIC [id number] 03:15:00 Test Item Value Reference Range Interpretation Comments NT PRO-BRAIN NATRIURETIC PEPTI 1759 PG/ML 0-100 H (test code = PROBNP) CBC W/AUTO [id number] 02:26:00 Test Item Value Reference Range Interpretation [...] NT WITH AUTO DIFFERENTI AL. CBC W/AUTO [id number] 02:26:00 Test Item Value Reference Range Interpretation [...] CONSISTA NT WITH AUTO DIFFERENTI AL. RBC [id number] 02:26:00 Test Item Value Reference Range Interpretation Comments HYPOCHROMIA (test code = HYPO) 1+ ON SCAN NONE ANISOCYTOSIS (test code = 1+ NONE ANISO) STOMATOCYTES (test code = STO) TRACE ON SCAN NONE CBC W/AUTO [id number] 02:26:00 Test Item Value Reference Range Interpretation [...] CONSISTA NT WITH AUTO DIFFERENTI AL. LACTIC [id number] 01:43:00 Test Item Value Reference Range Interpretation Comments LACTIC ACID (test code = LACT) 1.2 mmol/L 0.4-2.0 N BASIC METABOLIC [id number] 01:41:00 Test Item Value Reference Range Interpretation [...] 8.5-10.1 N Completed by Nursing: NOHEPATIC FUNCTION [id number] 01:41:00 Test Item Value Reference Range Interpretation [...] N code = ALKP) Completed by Nursing: [id number] 01:41:00 Test Item Value Reference Range Interpretation [...] method. Completed by Nursing: NOCOVID 19 INHOUSE [id number] 01:36:00 Test Item Value Reference Range Interpretation Comments COVID 19 INHOUSE AG NEGATIVE Negative Per manu facturer, (test code = negative result s should [id number]) be treated aspr esumptive and, if inconsi [...] symptoms co nsistent with COVID-19. CBC W/AUTO [id number] 01:15:00 Test Item Value Reference Range Interpretation [...] DIFF/SCN CRITERIA MDIFF) - XR CHEST 1 [id number] 23:46:00 [facility] 1975 Sex: F Name: GRAZYNA GOMEZ [facility] : 1975 Age/S: 46 / F [address] [address] Unit #: [id number] Loc: [place] [address] Phys: Ruddy Vargas MD Acct: [id number] Dis Date: Status: PRE ER PHONE #: [phone] Exam Date: 07/10/2021 2335 FAX #: Reason:Code Sepsis EXAMS: CPT: [id number] XR CHEST 1 V 36232 Fluoro Time: DAP (Gy m2): Air Kerma [...] and signed by: Flower Villasenor MD CC: uRddy Vargas MD PAGE 1 Signed Report Name: GRAZYNA GOMEZ : 1975 Age/S: 46 / F [address] [address] Unit #: [id number] Loc: [place] [address] Phys: Ruddy Vargas RMD Acct: [id number] Dis Date: Status: PRE ER PHONE #: [phone] Exam Date: 07/10/2021 2335 FAX #: Reason: Code Sepsis EX AMS: CPT: [id number] XR CHEST 1 V 53986 Fluoro Time: DAP (Gy m2): Air Kerma (mGy): <Continued> Technologist: Reed Sanderson RT(R) Trnscb Date/Time: 07/10/2021 (2446) [email or web address] Orig Print D/T: S: 07/10/2021 (4655) PAGE 2 Signed ReportPT/INR 2021-05-25 15:42:00 Test Item Value Reference Range Interpretation Comments PT (test code = 15.7 See_Comment H [Automated message] 5902-2) The system [employer] generated this result transmitted ref erence range: 11.7 - 1 4.5 Seconds. The re ference range was not u sed to interpret this result as normal/abnor mal. INR (test code = 1.3 Refer to INR 2.0 - 3.0 f or moderate 71017004) therapeutic ranges intensity anticoagulation 2.5 - 3.5 for high in tensity anticoagulation Lab Interpretation Abnormal (test code = 12520-0) [place] [address] LEAD [id number] 11:17:5812 LEAD EKG FOR [facility] Test Date: 3787-26-71Nht Name: GRAZYNA GOMEZ Department: 5GMSPatient ID: [id number] Room: Gender: F Food Service Steward: Doc: 1975 Requested By: PUNEET LOPEZ Order Number: [id number] Colten MD: Mee Vincent MeasurementsIntervals [place] Rate: 101 P: [place]: 0 QRS: 56QRSD: 112 T: 42QT: 381 QTc: 439 Interpretive StatementsATRIAL FIBRILLATION WITH RAPID VENTRICULAR RESPONSELOW QRS VOLTAGE IN PRECORDIAL LEADS [QRS DEFLECTION < 1.0 mVIN CHEST LEADS]MODERATE INTRAVENTRICULAR CONDUCTION DELAY [110+ ms QRS DURATION]NONSPECIFIC T-WAVE ABNORMALITYABNORMAL RHYTHM ECGReviewed by Electronically Signed On 05-25-2021 20:02:19CDT by [employer]12 LEAD [id number] 11:17:5812 LEAD EKG FOR [facility] Test Date: 2329-09-97Yqq Name: GRAZYNA GOMEZ [facility] [id number] Room: Gender: F Food Service Steward: Doc: 1975 Requested By: PUNEET LOPEZ Order Number: [id number] Reading MD: Mee Vincent MeasurementsIntervals [place] Rate: 101 P: [place]: 0 QRS: 56QRSD: 112 T: 42QT: 381 QTc: 439 Interpretive StatementsATRIAL FIBRILLATION WITH RAPID VENTRICULAR RESPONSELOW QRS VOLTAGE IN PRECORDIAL LEADS [QRS DEFLECTION < 1.0 mVIN CHEST LEADS]MODERATE INTRAVENTRICULAR CONDUCTION DELAY [110+ ms QRS DURATION]NONSPECIFIC T-WAVE ABNORMALITYABNORMAL RHYTHM ECGReviewed by Electronically Signed On 05-25-2021 20:02:19CDT by [facility] and medical centerWhistleTalk [facility] [id number] 05:32:00 Test Item Value Reference Range Interpretation Comments Sodium (test code = 141 mmol/L 525-980 7079-2) Potassium (test code = 3.8 mmol/L 3.5-5.1 2823-3) Chloride (test code = 93 mmol/L 98-107 L 2075-0) CO2 (test code = 45 mmol/L 21-31 H 43030680) Urea Nitrogen (test 8.0 mg/dL 06-09 code = 45590269) Creatinine (test code = 0.6 mg/dL 0.6-1.2 75964898) Glucose (test code = 98 mg/dL 70-110 55203409) Calcium (test code = 9.1 mg/dL 8.6-10.3 92787086) eGFR If Am >120 See_Comment [Automat ed message] (test code = 87895710) The s ystem which generated this result transmit sandy reference range : >=90 mL/min/1.7 3 m2. The reference r will was not used to interpret this result as normal/abnormal . eGFR If non- Am 111 See_Comment [Aut omated message] (test code = 01387661) The s ystem which generated this result transmit sandy reference range : >=90 mL/min/1.7 3 m2. The reference r will was not used to interpret this result as normal/abnormal . Anion Gap (test code = 3 mmol/L 5-16 L 47444740) Lab Interpretation Abnormal (test code = 08417-8) [id number] 05:32:00 Test Item Value Reference Range Interpretation Comments Magnesium (test code = 00128406) 2.0 mg/dL 1.9-2.7 Lab Interpretation (test code = Normal 42198-2) [facility]/Crhy1976-67-06 05:07:00 Test Item Value Reference Range Interpretation Comments WBC (test code = 6690-2) 7.0 K/uL 4.5-11 RBC (test code = 789-8) 4.31 See_Comment [Au tomated message] The system [employer] h generated this result transmit sandy reference [...] (test code = 54.8 fL 36.4-46.3 H 40196-4) Platelet (test code = 294 K/uL 150-400 777-3) Mean Platelet Volume 10.4 fL 9.4-12.4 (test code = 79054-0) Percent NRBC (test code 0.0 % = 83420745) Neutrophil (test code = 71.0 % 34-70 H 770-8) Lymphs (test code = 15.9 % 20-50 L 736-9) Monocytes (test code = 10.3 % 5-12 5905-5) Eos (test code = 713-8) 1.6 % 0.7-5 Basos (test code = 0.9 % 0.1-1.2 706-2) Immature Granulocytes 0.3 % 0-0.5 (test code = 47604423) Neutrophils (Absolute) 4.97 K/uL 1.56-6.13 (test code = 57069264) Lymphs (Absolute) (test 1.11 K/uL 1.18-3.74 L code = 63561832) Monocytes(Absolute) 0.72 K/uL 0.24-0.36 H (test code = 33065028) Eos (Absolute) (test 0.11 K/uL 0.04-0.36 code = 15643662) Baso (Absolute) (test 0.06 K/uL 0.01-0.08 code = 20063532) Immature Grans (Abs) 0.02 K/uL 0-0.03 (test code = 41296444) Absolute NRBC (test code 0.00 K/uL = 63479027) Lab Interpretation (test Abnormal code = 19909-9) [facility]regnancy [id number] 16:53:00 Test Item Value Reference Range Interpretation Comments (test code = 24242667) Negative Negative Lab Interpretation (test code = Normal 98376-7) [facility] Hill[facility] - every 6 hours x 24 [id number] 16:09:00 Test Item Value Reference Range Interpretation Comments PTT (test code = 45.1 See_Comment H The recomme nded 67628506) therapuetic ran ge is an APTT 61-103 seconds which corresponds to 0.3-0.7 anti Xa u/ml. [Automated mess age] The system [employer] generated this result transmitted ref erence range: 23.9 - 3 6.0 Seconds. The reference range was not used to int erpret this result as normal/abnormal . Lab Interpretation (test Abnormal code = 71353-1) [facility] LUNG PERFUSION IMAGING [id number] 18:46:40IMPRESSION: 1. Scan findings strongly suggest that [...] silhouette.Signed By: Crissy Dupree MD, 05/22/2021 6:[place]-Dhoum7636-47-06 19:13:00 Test Item Value Reference Range Interpretation Comments D-Dimer (test code = 3.22 See_Comment H Values of 19434809) quantitative D- Dimer less than 0.40 ug/mL [...] . Lab Interpretation (test Abnormal code = 81190-4) [facility] HillMmsnxoFdvtqjyyzg4956-20-80 18:55:00 Test Item Value Reference Range Interpretation Comments Color (test code = Yellow Colorless, Straw, 03308080) Yellow Clarity (test code = Clear Clear 89537800) Spec Adamant, Ur (test 1.012 1.001-1.035 code = 41387271) pH, Ur (test code = 6.0 5.0-8.0 70858338) Protein, Ur (test code Negative Negative mg/dL = 64228704) Glucose, Ur (test code Negative Negative mg/dL = 78283495) Ketone, Ur (test code = Negative Negative mg/dL 96160000) Bilirubin, Ur (test Negative Negative mg/dL code = 63676520) Nitrite, Ur (test code Negative Negative = 31577361) Leukocyte (test code = Negative Negative mg/dL 25126978) Blood, Ur (test code = 1+ Negative mg/dL A 06195770) RBC (test code = 5 See_Comment H [Automated message] 00205963) The system [employer] generated this result transmit sandy reference range : 0 - 4 /HPF. The reference range was not used to interpret this result as normal/abnormal . WBC (test code = 1 See_Comment [Automated message] 25163908) The system [employer] generated this result transmit sandy reference range : 0 - 5 /HPF. The reference range was not used to interpret this result as normal/abnormal . Epithelial Cell (test <1 See_Comment [Auto mated message] code = 69577682) The system which generated this result transmit sandy reference range : <=1 /HPF. The refer ence range was not u sed to interpret th is result as normal/abnormal . Mucous (test code = Present None seen /HPF A 83674414) Urobilinogen, Ur (test <1.0 See_Comment [Aut omated message] code = 06422193) The system which generated this result transmit sandy reference range : <1.0 EU/dL. The reference range was not used to interpret this result as normal/abnormal . Lab Interpretation Abnormal (test code = 11252-5) [facility]12 LEAD [id number] 17:44:5512 LEAD EKG FOR [facility] Test Date: 0017-76-85Ksb Name: GRAZYNA GOMEZ Department: 5520Patient ID: [id number] Room: Gender: F Food Service Steward: [id number]: 1975 Requested By: PUNEET LOPEZ Order Number: [id number] Reading MD: Mee Vincent MeasurementsIntervals [place] Rate: 115 P: [place]: 0 QRS: 51QRSD: 116 T: 0QT: 169 QTc: 237 Interpretive StatementsATRIAL FLUTTER /TACHYCARDIA WITH RAPID VENTRICULAR RESPONSELOW QRS VOLTAGE IN PRECORDIAL LEADSMODERATE INTRAVENTRICULAR CONDUCTION DELAYNONSPECIFIC T-WAVE ABNORMALITYABNORMAL RHYTHM ECGReviewed by Electronically Signed On 05-22-2021 9:24:28 CDT by [facility] centerWhistleTalk [employer]05 LEAD [id number] 17:44:5512 LEAD EKG FOR [facility] Test Date: 2094-26-64Fdd Name: GRAZYNA GOMEZ Department: 5520Patient ID: [id number] Room: Gender: F Food Service Steward: [id number]: 1975 Requested By: PUNEET LOPEZ Order Number: [id number] Reading MD: Mee Vincent MeasurementsIntervals [place] Rate: 115 P: [place]: 0 QRS: 51QRSD: 116 T: 0QT: 169 QTc: 237 Interpretive StatementsATRIAL FLUTTER/TACHYCARDIA WITH RAPID VENTRICULAR RESPONSELOW QRS VOLTAGE IN PRECORDIAL LEADSMODERATE INTRAVENTRICULAR CONDUCTION DELAYNONSPECIFIC T-WAVE ABNORMALITYABNORMAL RHYTHM ECGReviewed by Electronically Signed On 05-22-2021 9:24:28 CDT by [employer] Aff[employer] MarketingTRANSTHORACIC ECHO (TTE)2021-05-21 10:14:00TRANSTHORACIC ECHO (TTE) Transthoracic Echo Report CECIL GRAZYNA Age: 46 Gender:F : 1975 Exam Date: 05/21/2021 06:37 Exam[facility] Echo Ordering Phys: PUNEET LOPEZ Referring Phys: Reading Phys: Mee Vincent MD Fellow Phys: Fellow Phys: Answering Service Operator: Taina Rene Reason For Exam: Indications: new afib, Other specified conduction disorders ICD-9 Codes: I45.89 Exam Type: TRANSTHORACIC ECHO (TTE) Procedure CPT: 16512 Addtional CPT: Ht (in): 67 BSA: 3.14 [...] visualized. Pericardium Minimal pericardial effusion (normal variant). Aorta Normal size aortic root. IVC RA pressure is 5-10 mmHg. CONCLUSIONS Echocardiographic contrast was administered for better endocardial visualization. Normal left ventricular size. Mild to moderate concentric left ventricular hypertrophy. Grossly, LVEF appears to be around 40-50%. Poorendocardial visualization. Flattened septum in systole and diastole consistent with right ventricle pressure and volume overload. Cannot grade LV diastology due to atrial fibrillation. Right ace tricle not well visualized. Grossly appears dilated. Compared [...] Mass by linear method Index 101 g/m2 [facility] TRANSTHORACIC ECHO (TTE)2021-05-21 10:14:00TRANSTHORACIC ECHO (TTE) Transthoracic Echo Report GRAZYNA GOMEZ Age: 46 Gender:F : 1975 Exam Date: 05/21/2021 06:37 ExamLocation: [facility] Ordering Phys: PUNEET LOPEZ Referring Phys: Reading Phys: Mee Vincent MD Fellow Phys: Fellow Phys: Answering Service Operator: Taina Rene Reason For Exam: Indications: new afib, Other specified conduction disorders ICD-9 Codes: I45.89 Exam Type: TRANSTHORACIC ECHO (TTE) Procedure CPT: 75566 Addtional CPT: Ht (in): 67 BSA: 3.14 [...] visualized. Pericardium Minimal pericardial effusion (normal variant). Aorta Normal size aortic root. IVC RA pressure is 5-10 mmHg. CONCLUSIONS Echocardiographic contrast was administered for better endocardial visualization. Normal left ventricular size. Mild to moderate concentric left ventricular hypertrophy. Grossly, LVEF appears to be around 40-50%. Poorendocardial visualization. Flattened septum in systole and diastole consistent with right ventricle pressure and volume overload. Cannot grade LV diastology due to atrial fibrillation. Right ace tricle not well visualized. Grossly appears dilated. Compared [...] Mass by linear method Index 101 g/m2 [facility]EVENTBridge[facility] HospitalCare2Manage Hemoglobin [id number] 08:01:00 Test Item Value Reference Range Interpretation Comments Hemoglobin A1c (test code = 4548-4) 5.9 % 4.3-6.1 Estimated Average Glucose (test 123 mg/dL 70-110 H code = 53856298) Lab Interpretation (test code = Abnormal 05064-1) ONEPLELipid [id number] 06:23:00 Test Item Value Reference Range Interpretation Comments Cholesterol (test 69.0 mg/dL See_Comment [Automate d message] code = 2093-3) The system [employer] generated this result transmit sandy reference range : <=200.0. The reference range was not used to interpret this result as normal/abnormal . Triglyceride (test 70 mg/dL <150 code = 45365259) HDL (test code = 18.0 mg/dL See Reference 2085-9) Range Narrative. LDL (test code = 37 mg/dL <100 Optimal: < 100.0 99431-0) mg/dLNear Optim al: 120-129 mg/dLBorderline : 130-159 mg/dLHi gh: 160-189 mg/dLVe ry High: >=190 mg/ dL Patient Fasting? Yes (test code = 58813475) ONEPLECoronavirus, CoVID-19, [id number] 23:30:00 Test Item Value Reference Range Interpretation Comments COVID-19 Not Detected Not Detected INTERPRETATION: (SARS-COV-2) (test No detect able code = 66134-7) levels of SARS-CoV-2 Coronavirus (COVID-19) were present [...] MARIO (test code = COMMENT: This MARIO) [employer] SARS-CoV-2 molecular diagnostic assay utilizes [employer] Mediated Amplification (TMA) technology to rapidly detect the SARS-CoV-2 (COVID-19) virus from respiratory samples. In accordance with the FDA's guidance document "Policy for Diagnostic Tests for Coronavirus Disease-2019 during the Public Health Emergency", this test was developed, and its performance characteristics were verified by the [facility] molecular diagnostics laboratory and is authorized for clinical diagnostic use. This laboratory is certified under the Clinical Laboratory Improvement Amendments (CLIA) as qualified to perform high complexity clinical laboratory testing. Lab Interpretation Normal (test code = 36946-3) [facility] HillCoronavirus, CoVID-19, [id number] 23:30:00 Test Item Value Reference Range Interpretation Comments COVID-19 Not Detected Not Detected INTERPRETATION: (SARS-COV-2) (test No detect able code = 12396-6) levels of SARS-CoV-2 Coronavirus (COVID-19) were present [...] MARIO (test code = COMMENT: This MARIO) [employer] Aptima SARS-CoV-2 molecular diagnostic assay utilizes C[employer] Scout Mediated Amplification (TMA) technology to rapidly detect the SARS-CoV-2 (COVID-19) virus from respiratory samples. In accordance with the FDA's guidance document "Policy for Diagnostic Tests for Coronavirus Disease-2019 during the Public Health Emergency", this test was developed, and its performance characteristics were verified by the [facility] molecular diagnostics laboratory and is authorized for clinical diagnostic use. This laboratory is certified under the Clinical Laboratory Improvement Amendments (CLIA) as qualified to perform high complexity clinical laboratory testing. Lab Interpretation Normal (test code = 24348-5) [facility] [id number] 17:27:00 Test Item Value Reference Range Interpretation Comments Free T4 (test code = 80925348) 1.04 ng/dl 0.64-1.42 Lab Interpretation (test code = Normal 38876-4) [facility] HillSvvazwBRA8901-76-93 17:25:00 Test Item Value Reference Range Interpretation Comments TSH (test code = 5.13 See_Comment If , please 35478760) see the followi ng reference range s [...] . Lab Interpretation (test Normal code = 85451-3) [facility] HillBeta-hCG, Ducclmylnsez5092-85-11 17:14:00 Test Item Value Reference Range Interpretation Comments hCG, Quantitative (test <1.0 See_Comment [Au tomated message] code = 29435127) The system which generated this result transmitted ref erence range: <5.0 mIU /mL. The reference r will was not used to interpret this result as normal/abnor mal. Lab Interpretation (test Normal code = 23498-8) [facility] HillB-Type Natriuretic Peptide (BNP)2021-05-20 17:12:00 Test Item Value Reference Range Interpretation Comments B Natriuretic Peptide 173 pg/mL See_Comment H [Auto mated message] (BNP) (test code = The syste m which 06719191) generated this result transmit sandy reference range : <=100. The refe rence range was not u sed to interpret th is result as normal/abnormal . Lab Interpretation (test Abnormal code = 71905-2) Param Waldron [id number] 17:11:00 Test Item Value Reference Interpretation Comments Range Troponin I (test <0.03 See_Comment [Automated code = 34533409) message] e system which generated this result transmitted [...] patient, acute events such as myocardial infarction (FL) may be distinguished from other conditions causing [...] values. Lab Interpretation Normal (test code = 68686-0) [facility] HillXRAY CHEST 1 [id number] 16:25:32IMPRESSION: Evidence of pulmonary vascular congestion. Mild [...] study.Signed By: Francis Thompson MD, 05/20/2021 4:25 [facility]12 LEAD [id number] 15:54:3812 LEAD EKG FOR [facility] Test Date: 5994-18-70Ovr Name: GRAZYNA OGLESBY Department: 5520Patient ID: [id number] Room: POD D 09Gender: F Food Service Steward: [id number]: 1975 Requested By: NATHALIE Carrillo Number: [id number] Reading MD: nathan albert MeasurementsIntervals [place] Rate: 116 P: [place]: 0 QRS: 26QRSD: 106 T: -6QT: 325 QTc: 394 Interpretive StatementsATRIAL FLU TTER/TACHYCARDIA WITH RAPID VENTRICULAR RESPONSELOW QRS VOLTAGE IN PRECORDIAL LEADS [QRS DEFLECTION< 1.0 mV IN CHEST LEADS]ABNORMAL RHYTHM ECGElectronically Signed On 05-20-2021 20:27:02 CDT by [facility] 12 LEAD [id number] 15:54:3812 LEAD EKG FOR [facility] Test Date: 5093-27-21Iuw Name: [facility] Department: 5520Patient ID: [id number] Room: POD D 09Gender: F Food Service Steward: [id number]: 1975 Requested By: NATHALIE Carrillo Number: [id number] Reading MD: nathan albert MeasurementsIntervals [place] Rate: 116 P: [place]: 0 QRS: 26QRSD: 106 T: -6QT: 325 QTc: 394 Interpretive StatementsATRIAL FLUTTER/TACHYCARDIA WITH RAPID VENTRICULAR RESPONSELOW QRS VOLTAGE IN PRECORDIAL LEADS [QRS DEFLECTION < 1.0 mV IN CHEST LEADS]ABNORMAL RHYTHM ECGElectronically Signed On 05-20-2021 20:27:02 CDT by [facility] TROPONIN [facility] POC docked device 2021-05-20 15:42:00 Test Item Value Reference Range Interpretation Comments Troponin POC (test 0.01 ng/mL 0-0.08 Physician code = 43634696) Notified MARIO (test code = MARIO) <0.08 ng/mL Normal>=0.08 ng/mL Positive for Myocardial injuryNote: The >=0.08 ng/mL cTnI is at the 99th percentile of the non-AMI population. Lab Interpretation Normal (test code = 10824-2) [facility] TROPONIN I POC docked quryzq3352-28-09 15:42:00 Test Item Value Reference Range Interpretation Comments Troponin POC (test 0.01 ng/mL 0.00-0.08 Physician code = 86719487) Notified MARIO (test code = MARIO) <0.08 ng/mL Normal>=0.08 ng/mL Positive for Myocardial injuryNote: The >=0.08 ng/mL cTnI is at the 99th percentile of the non-AMI population. Lab Interpretation Normal (test code = 54049-2) [facility] BMP POC docked soeiyk4563-05-68 15:36:00 Test Item Value Reference Range Interpretation Comments Sodium POC (test code = 142 mmol/L 136-145 00807121) Potassium POC (test code 3.9 mmol/L 3.5-5.1 = 90359589) Chloride POC (test code 97 mmol/L 98-107 L = 65002882) TCO2 POC (test code = 34 mmol/L 21-32 H Physic preeti Notified 09593793) Urea Nitrogen POC (test 9 mg/dL 7-18 code = 12209333) Glucose POC (test code = 157 mg/dL 74-106 H 33357855) Hemoglobin POC (test 14.3 g/dL 12-16 code = 97530921) Hematocrit POC (test 42.0 % 37.0-47.0 code = 47679303) Lab Interpretation (test Abnormal code = 67483-2) [facility] BMP POC docked amypyb6050-17-04 15:36:00 Test Item Value Reference Range Interpretation Comments Sodium POC (test code = 142 mmol/L 136-145 14985633) Potassium POC (test code 3.9 mmol/L 3.5-5.1 = 22603052) Chloride POC (test code 97 mmol/L 98-107 L = 75151975) TCO2 POC (test code = 34 mmol/L 21-32 H Physic preeti Notified 91472132) Urea Nitrogen POC (test 9 mg/dL 7-18 code = 69460389) Glucose POC (test code = 157 mg/dL 74-106 H 29990365) Hemoglobin POC (test 14.3 g/dL 12-16 code = 98571462) Hematocrit POC (test 42.0 % 37-47 code = 79311536) Lab Interpretation (test Abnormal code = 99145-9) [facility] CREATININE POC docked zzfvtn3077-59-28 15:35:00 Test Item Value Reference Range Interpretation Comments Creatinine POC (test 0.6 mg/dL 0.6-1.3 Physici an Notified code = 12337863) eGFR If non- Am >90 See_Comment [Aut omated message] (test code = 68254692) The s ystem which generated this result transmit sandy reference range : >=90 mL/min/1.7 3 m2. The reference r will was not used to interpret this result as normal/abnormal . eGFR If Am (test >90 See_Comment [A utomated message] code = 44171720) The system which generated this result transmit sandy reference range : >=90 mL/min/1.7 3 m2. The reference r will was not used to interpret this result as normal/abnormal . Lab Interpretation (test Normal code = 60623-9) [facility] VBG POC docked [id number] 15:35:00 Test Item Value Reference Range Interpretation Comments pH, Ace POC (test code 7.40 7.33-7.43 = 74007906) pCO2,Ace POC (test code 53.3 See_Comment H [Au tomated = 79024901) message] The sy stem which generated this result transmitted reference range : 38 - 50 mmHg. The reference range was not used to interpret this result as normal/abnormal . PO2, Venous POC (BKR) 49 See_Comment L [Auto mated (test code = 09406582) messa ge] The system which generated this result transmitted reference range : 50 - 75 mm Hg. The reference range was not used to interpret this result as normal/abnormal . Ionized Calcium POC 1.15 mmol/L 1.15-1.29 (test code = 29502186) HCO3, Ace POC (test 33 mmol/L 22-26 H code = 32637954) TCO2 POC (test code = 34 mmol/L 21-32 H 54918890) Base Excess Ace POC 6 mmol/L (test code = 19908076) Sample Type (test code IVJEANNINE Physi hermes Notified = 18018927) % Sat, Ace POC (test 83 % code = 53497253) Lab Interpretation Abnormal (test code = 55531-5) [facility] CREATININE POC docked yszoql5186-74-51 15:35:00 Test Item Value Reference Range Interpretation Comments Creatinine POC (test 0.6 mg/dL 0.6-1.3 Physici an Notified code = 46187384) eGFR If non- Am >90 See_Comment [Aut omated message] (test code = 18369510) The s ystem which generated this result transmit sandy reference range : >=90 mL/min/1.7 3 m2. The reference r will was not used to interpret this result as normal/abnormal . eGFR If Am (test >90 See_Comment [A utomated message] code = 74305266) The system which generated this result transmit sandy reference range : >=90 mL/min/1.7 3 m2. The reference r will was not used to interpret this result as normal/abnormal . Lab Interpretation (test Normal code = 20413-6) [facility] VBG POC docked [id number] 15:35:00 Test Item Value Reference Range Interpretation Comments pH, Ace POC (test code 7.40 7.33-7.43 = 80025874) pCO2,Ace POC (test code 53.3 See_Comment H [Au tomated = 16354685) message] The sy stem which generated this result transmitted reference range : 38 - 50 mmHg. The reference range was not used to interpret this result as normal/abnormal . PO2, Venous POC (BKR) 49 See_Comment L [Auto mated (test code = 61734554) messa ge] The system which generated this result transmitted reference range : 50 - 75 mm Hg. The reference range was not used to interpret this result as normal/abnormal . Ionized Calcium POC 1.15 mmol/L 1.15-1.29 (test code = 73206067) HCO3, Ace POC (test 33 mmol/L 22-26 H code = 47303418) TCO2 POC (test code = 34 mmol/L 21-32 H 31822660) Base Excess Ace POC 6 mmol/L (test code = 16070165) Sample Type (test code IVJEANNINE Physi hermes Notified = 28899198) % Sat, Ace POC (test 83 % code = 15050613) Lab Interpretation Abnormal (test code = 84574-3) [facility]12 LEAD [id number] 15:23:0612 LEAD EKG FOR [facility] Test Date: 9970-68-07Qfv Name: GRAZYNA OGLESBY Department: 5520Patient ID: [id number] Room: Gender: Food Service Steward: [id number]: 1975 Requested By: NATHALIE Carrillo Number: [id number] Reading MD: nathan albert MeasurementsIntervals [place] Rate: 191 P: [place]: 0 QRS: 30QRSD: 97 T: 0QT: 196 QTc: 294 Interpretive StatementsATRIAL FIBRILLATION WI TH RAPID VENTRICULAR RESPONSELOW QRS VOLTAGE IN PRECORDIAL LEADS [QRS DEFLECTION < 1.0 mV IN CHEST LEADS]MODERATE ST DEPRESSION [0.05+ mV ST DEPRESSION]CRITICAL TEST RESULTElectronically Signed On 05-20-2021 15:43:36 CDT by nathan Stone [place] [address] LEAD [id number] 15:23:0612 LEAD EKG FOR [facility] Test Date: 1956-48-28Dwz Name: GRAZYNA OGLESBY Department: 5520Patient ID: [id number] Room: Gender: F Food Service Steward: [id number]: 1975 Requested By: NATHALIE Carrillo Number: [id number] Reading MD: nathan albert MeasurementsIntervals [place] Rate: 191 P: [place]: 0 QRS: 30QRSD: 97 T: 0QT: 196 QTc: 294 Interpretive StatementsATRIAL FIBRILLATION WITH RAPID VENTRICULAR RESPONSELOW QRS VOLTAGE IN PRECORDIAL LEADS [QRS DEFLECTION < 1.0 mV IN CHEST LEADS]MODERATE ST DEPRESSION [0.05+ mV ST DEPRESSION]CRITICAL TEST RESULTElectronically Signed On 05-20-2021 15:43:36 CDT by [facility] [id number] 13:06:00 Test Item Value Reference Range Interpretation Comments Glucose POC (test code = 25364579) 105 mg/dL 74-106 Lab Interpretation (test code = Normal 81823-0) [facility] sczgyt2916-31-07 13:06:00 Test Item Value Reference Range Interpretation Comments Glucose POC (test code = 70161511) 105 mg/dL 74-106 Lab Interpretation (test code = Normal 02471-2) [facility] HillLpzwygBzdixdkfnh5719-64-07 05:55:00 Test Item Value Reference Range Interpretation Comments Phosphorus (test code = 2777-1) 3.3 mg/dL 2.5-5 Lab Interpretation (test code = Normal 94962-7) [facility] HillDifferential, [id number] 10:07:00 Test Item Value Reference Range Interpretation Comments Neutrophil (test code = 77779354) 80.0 % 34-70 H Lymphs (test code = 06632175) 14.0 % 20-50 L Monocytes (test code = 04144332) 6.0 % 5-12 Eos (test code = 79722534) 0.0 % 0.7-5 L Basos (test code = 48888760) 0.0 % 0.1-1.2 L Neutrophils (Absolute) (test code = 7.03 K/uL 1.56-6.13 H 10681924) Lymphs (Absolute) (test code = 1.23 K/uL 1.18-3.74 87794402) Monocytes(Absolute) (test code = 0.53 K/uL 0.24-0.36 H 76180506) Eos (Absolute) (test code = 0.00 K/uL 0.04-0.36 L 11014841) Baso (Absolute) (test code = 0.00 K/uL 0.01-0.08 L 95961269) Large Platelets (test code = 2+ None seen A 94550991) Platelet Clumps (test code = Present None seen A 14617232) Hypochromia (test code = 20370337) 3+ None seen A Ovalocyte (test code = 06562862) 2+ None seen A Stomatocyte (test code = 62446576) 2+ None seen A Cells Counted (test code = 40020756) Lab Interpretation (test code = Abnormal 55954-6) [facility] HillComprehensive Metabolic [id number] 06:36:00 Test Item Value Reference Range Interpretation Comments Sodium (test code = 141 mmol/L 919-777 2283-2) Potassium (test code = 3.8 mmol/L 3.5-5.1 2823-3) Chloride (test code = 98 mmol/L 98-107 2075-0) CO2 (test code = 38 mmol/L 21-31 H 00912393) Glucose (test code = 113 mg/dL 70-110 H 63816862) Calcium (test code = 8.2 mg/dL 8.6-10.3 L 48102122) Urea Nitrogen (test 9.0 mg/dL 7-25 code = 81097153) Creatinine (test code = 0.6 mg/dL 0.6-1.2 65712464) Alkaline Phosphatase 38 U/L 34-104 (test code = 19441321) ALT (test code = 11 U/L 7-52 96759438) AST (test code = 12 U/L 13-39 L 34734764) Total Protein (test 6.8 g/dL 6-8.3 code = 2885-2) eGFR If non- Am >90 See_Comment [Aut omated message] (test code = 71304662) The s ystem which generated this result transmit sandy reference range : >=90 mL/min/1.7 3 m2. The reference r will was not used to interpret this result as normal/abnormal . Albumin (test code = 3.1 g/dL 3.7-5.3 L 00446-2) Anion Gap (test code = 5 mmol/L 5-16 12982238) Lab Interpretation Abnormal (test code = 54226-6) [facility] HillBlood Gas, Lowwnf5074-62-62 04:33:00 Test Item Value Reference Range Interpretation Comments Temperature (test code 37.0 degree C = 78211146) pH, Venous (test code = 7.36 7.33-7.43 42404932) pCO2, Venous (test code 71.3 See_Comment HH [Au tomated = 34181907) message] The sy stem which generated this result transmitted reference range : 38 - 50 mm Hg. The reference range was not used to interpret this result as normal/abnormal . pO2, Venous (test code 54.8 See_Comment [Aut omated = 12492182) message] The sy stem which generated this result transmitted reference range : 50 - 75 mm Hg. The reference range was not used to interpret this result as normal/abnormal . Base Excess, Venous 13.2 mmol/L -2.5-2.5 H (test code = 75535130) HCO3, Venous (test code 39.2 mmol/L 22-26 H = 99602080) % Sat, Venous (test 86.6 % 60-85 H code = 76705430) Lab Interpretation Abnormal (test code = 65380-0) [place] [employer]/Yst7369-81-91 22:29:00 Test Item Value Reference Range Interpretation Comments Hemoglobin (test code = 718-7) 7.5 g/dL 12-16 L Hematocrit (test code = 4544-3) 32.0 % 37-47 L Lab Interpretation (test code = Abnormal 69629-6) [place] [employer] RBC Units, 1 Ufkdk2794-04-97 12:35:00 Test Item Value Reference Range Interpretation Comments RBC UNITS (test code = compatible 24493743) Unit ABO Type (test code = O 22210382) Unit Rh Type (test code = POS 71103863) Product Code (test code = E0336 30543324) Unit Number (test code = [id number] 63399886) Unit Status (test code = transfused 61821072) ISBT Product Code (test code = F2395X90 23190) Blood Type (test code = 01980) 5100 Blood Expiration Date (test 986251373427 code = 99138) [place] [employer] RBC Units, 1 Rmdgp1601-02-91 12:35:00 Test Item Value Reference Range Interpretation Comments RBC UNITS (test code = compatible 99055314) Unit ABO Type (test code = O 83302209) Unit Rh Type (test code = POS 72855704) Product Code (test code = E0336 37983841) Unit Number (test code = [id number] 25603551) Unit Status (test code = transfused 31509362) ISBT Product Code (test code = S0087C68 13904) Blood Type (test code = 42177) 5100 Blood Expiration Date (test 128049179837 code = 23880) [facility] HillVitamin [id number] 08:32:00 Test Item Value Reference Range Interpretation Comments Vitamin B12 (test code 351 pg/mL See comment Lucila l: 180-914 = 60610309) pg/mLIntermitte nt: 145-180 pg/mLDeficient: <=145.0 pg/mL [facility] HillLegionella Antigen, [id number] 08:20:00 Test Item Value Reference Range Interpretation Comments Legionella Ag, Ur (test code = Negative Negative 04427-6) Lab Interpretation (test code = Normal 34566-3) [facility] HillStrep Pneumo Ag, Vdfsu1266-86-98 01:40:00 Test Item Value Reference Range Interpretation Comments S. pneumo Ur Antigen (test code = Negative Negative 53413-2) Lab Interpretation (test code = Normal 91752-4) [facility]2021-[facility]-13 13:02:00TRANSTHORACIC ECHO (TTE) Transthoracic Echo Report GRAZYNA GOMEZ Age: 45 Gender:F : 1975 Exam Date: 02/13/2021 08:08 ExamLocation: [facility] Ordering Phys: MARBELLA ALLAN Referring Phys: [id number] Reading Phys: Mee Vincent MD Fellow Phys: Fellow Phys: Answering Service Operator:Isma Nunez Reason For Exam: Indications: Obstructive sleep apnea, rule out pulmonary hypertension, Other secondary pulmonary hypertension, Morbid (severe) obesity due to excess calories ICD-9 Codes: I27.2 E66.01 Exam Type: TRANSTHORACIC ECHO (TTE) Procedure CPT: 01451 Addtional CPT: Ht (in): 67 BSA: 3.38 [...] Mass by linear method Index 102 g/m2 [facility] 13:02:00TRANSTHORACIC ECHO (TTE) Transthoracic Echo Report GRAZYNA GOMEZ Age: 45 Gender:F : 1975 Exam Date: 02/13/2021 08:08 ExamLocation: [facility] Ordering Phys: MARBELLA ALLAN Referring Phys: [id number], JERRELL Reading Phys: Mee Vincent MD Fellow Phys: Fellow Phys: Answering Service Operator:Isma Nunez Reason For Exam: Indications: Obstructive sleep apnea, rule out pulmonary hypertension, Other secondary pulmonary hypertension, Morbid (severe) obesity due to excess calories ICD-9 Codes: I27.2 E66.01 Exam Type: TRANSTHORACIC ECHO (TTE) Procedure CPT: 58054 Addtional CPT: Ht (in): 67 BSA: 3.38 [...] Mass by linear method Index 102 g/m2 [facility] [id number] 06:58:00 Test Item Value Reference Range Interpretation Comments Specimen Expiration (test 02/16/2021 23:59 code = 46194125) ABO/RH (test code = O POS 70197615) Antibody Screen (test code = NEG 11376608) [facility]RH [id number] 06:57:00 Test Item Value Reference Range Interpretation Comments ABO/RH (test code = 14758609) O POS [facility] [id number] 03:07:00 Test Item Value Reference Range Interpretation [...] MARIO (test code = MARIO) Performed at: [address] [place] [address] [id number] Director: Denis Lugo MD, Phone: [phone] Lab Interpretation Abnormal (test code = 09137-2) [facility] [id number] 05:33:00 Test Item Value Reference Range Interpretation Comments Ferritin (test code = 33160831) <10.0 11-306.8 L Lab Interpretation (test code = Abnormal 86814-1) [facility]atitis C Virus Ab [id number] 05:27:00 Test Item Value Reference Range Interpretation Comments Hepatitis C Virus (HCV) Antibody Negative Negative (test code = 56583-8) Lab Interpretation (test code = Normal 96468-5) [facility]/HIV-2 Routine [id number] 05:26:00 Test Item Value Reference Range Interpretation Comments HIV Ag/Ab Combo (test code = Negative Negative 83377-0) Lab Interpretation (test code = Normal 87666-2) [facility] ABDOMEN [id number] 19:55:26IMPRESSION:Limited evaluation due to bowel gas and [...] report.Signed By: Francis Thompson MD, 02/11/2021 7:55 PMKind[facility] - First [id number] 18:55:00 Test Item Value Reference Range Interpretation Comments Lipase (test code = 48137083) 24 U/L 11-82 Lab Interpretation (test code = Normal 82763-6) [facility] HillLiver [id number] 18:55:00 Test Item Value Reference Range Interpretation Comments Bilirubin, Total (test code = 1.5 mg/dL 0.2-1.2 H 2885-2) Alkaline Phosphatase (test code = 44 U/L 34-104 07332704) AST (test code = 76761386) 13 U/L 13-39 Direct Bilirubin (test code = 0.6 mg/dL 0-0.2 H 1968-7) ALT (test code = 30002472) 9 U/L 7-52 Albumin (test code = 09056-3) 3.3 g/dL 3.7-5.3 L Lab Interpretation (test code = Abnormal 88947-6) [facility] HillX[facility] CHEST 2 [id number] 18:34:30IMPRESSION: Limited exam. Opacified left lung base could represent atelectasis, pneumonia, and/oreffusion in the appropriate clinical context. Chest CT with contrast canbetter characterize this, if clinically indicated. Dictated By: Percy Cho MD, 02/11/2021 6:00 PM I have reviewed the study and agreewith the findings in this report. Signed By: Francis Thompson MD, 02/11/2021 6:34 PM Aubrey, Jose/MammogIn - 02/11/2021 6:39 PM CDT EXAMINATION: XRAY [...] report.Signed By: Francis Thompson MD, 02/11/2021 6:34 [facility]12 LEAD [id number] 17:19:2512 LEAD EKG FOR [facility] Test Date: 1946-28-35Sdb Name: GRAZYNA GOMEZ Department: 5520Patient ID: [id number] Room: Gender: F Food Service Steward: [id number]: 1975 Requested By: MATY Lira Number: [id number] Reading MD: Mee Vincent MeasurementsIntervals [place] Rate: 78 P: -15PR: 107 QRS: 38QRSD: 109 T: 68QT: 364 QTc: 417 Interpretive StatementsSINUS RHYTHM WITH SHORT [place] INTERVALLOW QRS VOLTAGE IN PRECORDIAL LEADS [QRS DEFLECTION < 1.0 mV IN CHEST LEADS]NONSPECIFIC T-WAVE ABNORMALITYElectronically Signed On 02-11-2021 19:11:55 CDT by Mee LizVal[facility]12 LEAD [id number] 17:19:2512 LEAD EKG FOR [facility] Test Date: 7601-79-69Lxf Name: GRAZYNA DILLONALES Department: 5520Patient ID: [id number] Room: Gender: F Food Service Steward: [id number]: 1975 Requested By: MATY Lira Number: [id number] Colten MCGOWAN: Mee Vincent MeasurementsIntervals [place] Rate: 78 P: -15PR: 107 QRS: 38QRSD: 109 T: 68QT: 364 QTc: 417 Interpretive StatementsSINUS RHYTHM WITH SHORT [place] INTERVALLOW QRS VOLTAGE IN PRECORDIAL LEADS [QRS DEFLECTION < 1.0 mV IN CHEST LEADS]NONSPECIFIC T-WAVE ABNORMALITYElectronically Signed On 02-11-2021 19:11:55 CDT by Mee Vendalizessm depaul health centerSourceTrace Systemsenglewood hospital and medical centerWhistleTalk [facility]
[2021-11-30 20:33] LABS: Absolute Lymphocytes (CBC) 0.7 K/uL (0.7-4.9); Hematocrit 35.1 % (36.0-45.0); Lymphocytes % 7.6 % (15.3-44.8); MPV 8.3 fL (7.6-11.3); RBC Red Blood Cell Count 4.48 M/uL (3.86-4.86)
[2021-11-30 20:51] LABS: Arterial Blood Carboxyhemoglob 1.7 % (0-1.5); Blood Gas Oxyhemoglobin 96.5 % (94-97); Blood O2 Saturation 99.2 % (92-98.5)
[2021-11-30 20:56] LABS: BUN Blood Urea Nitrogen 10 mg/dL (7-18); Bicarbonate 30 mmol/L (21-32); Glucose Level 112 mg/dL (74-106); Potassium 3.6 mmol/L (3.5-5.1); Sodium Level 141 mmol/L (136-145)
[2021-11-30 20:58] LABS: CKMB Creatine Kinase MB < 1.0 ng/mL (1.0-3.6)
[2021-11-30 21:06] LABS: SARS-COV-2 RT PCR NEGATIVE (NEGATIVE)
[2021-11-30 21:27] LABS: Urine Blood 3+ (Negative); Urine Glucose Negative (Negative); Urine Protein Negative (Negative); Urine pH 5.5 (5.0-7.0)
[2021-11-30 21:39] LABS: Urine Appearance CLEAR (Clear); Urine Bilirubin NEGATIVE (Negative); Urine Blood 3+ (Negative); Urine Color YELLOW (Yellow); Urine Glucose NEGATIVE (Negative); Urine Protein NEGATIVE (Negative); Urine Specific Gravity <=1.005 (1.005-1.030); Urine Urobilinogen 0.2 mg/dL (0.2-1.0); Urine pH 5.5 (5.0-7.0)
[2021-11-30 21:46] LABS: Blood Morphology Comment NOTED (NOT SEEN); Platelet Estimate ADEQ; Polychromasia 1+; Stomatocytes 1+; White Blood Cell Scan OK (OK)
[2021-11-30 22:07] LABS: Urine Bacteria 20-50 /HPF (<20); Urine Mucus 1+ /HPF (NONE SEEN)
--- NOTE | 2021-11-30 22:14 | RAD REPORT ---
EXAM DESCRIPTION: RAD - Chest Single View - 11/30/2021 10:03 pm CLINICAL HISTORY: SOB COMPARISON: Chest Single View dated 09/16/2021; Chest Single View dated 09/03/2021; Chest Single View dated 08/01/2021 FINDINGS: Lines: None. Lungs: Diffuse prominence of the pulmonary interstitium. Pleural: No significant pleural effusions or pneumothorax. Cardiac: Cardiomegaly. Bones: No acute fractures. Other: IMPRESSION: Interstitial edema/congestive heart failure, worsened since 09/16/2021.
[2021-11-30 22:26] LABS: NT PRO-BNP 2119 pg/mL (<125)
[2021-11-30] MEDS ORDERED: ONDANSETRON 4 MG/2 ML VIAL IV PRN (22:45)
[2021-11-30] MEDS ORDERED: ALBUTEROL 2.5 MG/3 ML NEB SOL NEB PRN (22:45)
[2021-11-30] MEDS ORDERED: IPRATROPIUM BROM 0.5MG/2.5ML NEB PRN (22:45)
[2021-11-30] MEDS ORDERED: ACETAMINOPHEN 500 MG TAB PO PRN (22:45)
[2021-11-30] MEDS ORDERED: HYDRALAZINE HCL 20 MG/ML VIAL IV PRN (22:45)
--- NOTE | 2021-11-30 22:46 | ER ---
Nurse's Notes [facility] Name: Charity Jacob Age: 46 yrs Sex: Female : 1975 Arrival Date: 11/30/2021 Time: 20:51 Bed 4 Private MD: Diagnosis: Unspecified combined systolic (congestive) and diastolic (congestive) heart failure;Hypoxemia;Unspecified atrial flutter;Morbid (severe) obesity due to excess calories Presentation: 11/30 19:00 Acuity: MAIKEL 2 iw 21:00 Coronavirus screen: Vaccine status: Patient reports receiving the 1st dose of the Covid al4 vaccine. Date September 15, 2021. Ebola Screen: No symptoms or risks identified at this time. Initial Sepsis Screen: Does the patient meet any 2 criteria? RR > 20 per min. HR > 90 bpm. Does the patient have a suspected source of infection? No. Patient's initial sepsis screen is negative. Risk Assessment: Do you want to hurt yourself or someone else? Patient reports no desire to harm self or others. 21:00 Method Of Arrival: EMS al4 21:00 Chief complaint: per day shift report - EMS brought patient in for c/o SOB. al4 Triage Assessment: 21:00 General: Per Day shift report at 1900 - Patient came in with SOB. 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 - Social history:: Smoking status: Patient denies any tobacco usage or history of. Screenin:04 Abuse screen: Denies threats or abuse. Nutritional screening: No deficits noted. al4 Tuberculosis screening: No symptoms or risk factors identified. Fall Risk No fall in past 12 months (0 pts). IV access (20 points). Ambulatory Aid- None/Bed Rest/Nurse Assist (0 pts). Gait- Weak (10 pts.). Mental Status- Oriented to own ability (0 pts). Total Sweeney Fall Scale indicates Low Risk Score (25-44 pts). Fall prevention measures have been instituted. Side Rails Up X 2 Placed close to Nursing Station Frequent Obs/Assesments occuring As available Patient and Family Educated on Fall Prevention Program and strategies. Assessment: 21:00 Reassessment: linens changed, patient cleaned up. al4 21:29 Reassessment: see paper charting prior to 2099. al4 22:02 General: Appears in no apparent distress. comfortable, Behavior is calm, cooperative, al4 appropriate for age. Pain: Denies pain. Neuro: Level of Consciousness is awake, alert, obeys commands. Cardiovascular: Denies chest pain, Heart tones present Patient's skin is warm and dry. Respiratory: Airway is patent Respiratory effort is even, unlabored, on bipap Respiratory pattern is symmetrical, tachypnea the patient has moderate shortness of breath. GI: No signs and/or symptoms were reported involving the gastrointestinal system. : Reports vaginal bleeding that is moderate flow. EENT: No signs and/or symptoms were reported regarding the EENT system. Derm: No signs and/or symptoms reported regarding the dermatologic system. Musculoskeletal: Circulation, motion, and sensation intact. Range of motion: intact in all extremities. 12/01 00:00 Reassessment: Patient is alert, oriented x 3, equal unlabored respirations, skin al4 warm/dry/pink. 02:00 Reassessment: No changes from previously documented assessment. patient sleeping.. al4 03:00 Reassessment: Patient is alert, oriented x 3, equal unlabored respirations, skin al4 warm/dry/pink. 04:58 Reassessment: patient is sleeping. call light and phone at bedside within reach. al4 05:56 Reassessment: Patient and/or family updated on plan of care and expected duration. Pain al4 level reassessed. 06:02 Reassessment: patient repositioned and cleaned up. patients brief changed. call light al4 and phone within reach. patient updated on plan of care. Vital Signs: 11/30 21:00 BP 136 / 97; Pulse 121; Resp 24; Pulse Ox 100% ; Pain 0/10; al4 21:30 BP 116 / 49; Pulse 99; Resp 24; Pulse Ox 100% ; Pain 0/10; al4 22:30 BP 102 / 65; Pulse 97; Resp 24; Pulse Ox 100% ; Pain 0/10; al4 12/01 00:30 BP 135 / 89; Pulse 94; Resp 24; Pulse Ox 100% ; al4 01:30 BP 104 / 72; Pulse 97; Resp 23; Pulse Ox 100% ; al4 03:30 BP 134 / 85; Pulse 96; Resp 23; Temp 98.1; Pulse Ox 100% ; al4 06:03 BP 138 / 71; Pulse 104; Resp 20; Pulse Ox 100% ; Pain 0/10; al4 ED Course: 11/30 20:51 Patient arrived in ED. kj1 20:58 Joe Rod PA is PHCP. cp 20:58 Vinnie Connor MD is Attending Physician. cp 21:07 Osiel Horan, RULA is Primary Nurse. as6 22:04 Patient has correct armband on for positive identification. Placed in gown. Bed in low al4 position. Call light in reach. Side rails up X2. conveyor monitor on. Pulse ox on. NIBP on. Door closed. Warm blanket given. 22:10 Arm band placed on. al4 22:12 Malcom Donis PA is Hospitalizing Provider. cp 12/01 07:36 Triage completed. iw 23:30 No provider procedures requiring assistance completed. Patient admitted, IV remains in al4 place. Administered Medications: 11/30 21:24 Drug: SOLU-Medrol (methylPrednisoLONE) 125 mg Route: IVP; Site: left antecubital; as6 21:24 Drug: Lasix (furosemide) 40 mg Route: IVP; Site: left antecubital; as6 Outcome: 22:12 Decision to Hospitalize by Provider. cp 12/01 23:30 Admitted to Med/surg accompanied by tech, Report called to Tomi Krishna RN al4 Condition: stable Discharge instructions given to patient, Instructed on the need for admit. 23:32 Patient left the ED. al4 Signatures: Jeni Hines RN RULA iw Joe Rod PA PA cp Savannah Jansen kj1 Osiel Horan RN RN as6 Bean Herbert al4 Corrections: (The following items were deleted from the chart) 11/30 22:06 22:04 Fall Risk No fall in past 12 months (0 pts). IV access (20 points). Ambulatory al4 Aid- None/Bed Rest/Nurse Assist (0 pts). Gait- Weak (10 pts.). Mental Status- Oriented to own ability (0 pts). Total Sweeney Fall Scale indicates Low Risk Score (25-44 pts). al4 22:06 22:04 Fall Risk Total Sweeney Fall Scale indicates Low Risk Score (25-44 pts). Side Rails al4 Up X 2 Placed close to Nursing Station Frequent Obs/Assesments occuring As available Patient and Family Educated on Fall Prevention Program and strategies. al4 22:10 22:09 Risk Assessment: Do you want to hurt yourself or someone else? al4 al4 22:12 21:29 Reassessment: see paper charting al4 al4 22: 22:02 General: Appears in no apparent distress. comfortable, al4 al4 22:12 22:02 Respiratory: Airway is patent Respiratory effort is even, unlabored, on bipap al4 Respiratory pattern is symmetrical, tachypnea al4 12/01 03:26 01/15 22:12 General: al4 al4
--- NOTE | 2021-11-30 22:46 | EDPHYS ---
Physician Documentation [facility] Name: Charity Jacob Age: 46 yrs Sex: Female : 1975 Arrival Date: 11/30/2021 Time: 20:51 Bed 4 Private MD: ED Physician Vinnie Connor HPI: 11/30 21:00 This 46 yrs old Female presents to ER via Unassigned with complaints of cp Shortness of Breath. 21:00 The patient has shortness of breath at rest. cp 21:00 Onset: The symptoms/episode began/occurred today. Duration: The symptoms are cp continuous, and are steadily getting worse. Associated signs and symptoms: Pertinent negatives: chest pain, fever. Severity of symptoms: in the emergency department the symptoms are unchanged despite home interventions. 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 - Social history:: Smoking status: Patient denies any tobacco usage or history of. ROS: 21:05 Constitutional: Negative for body aches, chills, fever, poor PO intake. cp 21:05 Eyes: Negative for injury, pain, redness, and discharge. cp 21:05 ENT: Negative for ear pain, sore throat, difficulty swallowing, difficulty handling secretions. 21:05 Cardiovascular: Positive for edema, Negative for chest pain, palpitations. 21:05 Respiratory: Positive for shortness of breath. 21:05 Abdomen/GI: Negative for abdominal pain, vomiting, diarrhea, constipation. 21:05 Neuro: Negative for altered mental status. 21:05 All other systems are negative. Exam: 19:55 ECG was reviewed by the Attending Physician. cp 21:10 Constitutional: The patient appears alert, awake, non-diaphoretic, non-toxic, well cp developed, well nourished, obese, in obvious distress, moderately distressed. 21:10 Head/Face: Normocephalic, atraumatic. cp 21:10 Eyes: Periorbital structures: appear normal, Conjunctiva: normal, no exudate, no injection, Sclera: no appreciated abnormality, Lids and lashes: appear normal, bilaterally. 21:10 ENT: External ear(s): are unremarkable, Nose: is normal, Mouth: Lips: moist, Oral mucosa: moist, Posterior pharynx: Airway: no evidence of obstruction, patent. 21:10 Neck: ROM/movement: is normal, is supple, without pain, no range of motions limitations, no meningismus. 21:10 Chest/axilla: Inspection: normal. 21:10 Cardiovascular: Rate: tachycardic, Rhythm: regular, Edema: ankle edema, that is mild, JVD: is not appreciated. 21:10 Respiratory: moderate respiratory distress is noted, Respirations: labored breathing, that is moderate, shallow respirations, that is moderate, Breath sounds: decreased breath sounds, that are moderate, stridor, is not appreciated, wheezing: is not appreciated. 21:10 Abdomen/GI: Inspection: obese Bowel sounds: active, all quadrants, Palpation: abdomen is soft and non-tender, in all quadrants. 21:10 Neuro: Orientation: to person, place \T\ time. Mentation: is normal, Motor: moves all fours, strength is normal, Sensation: no obvious gross deficits. Vital Signs: 21:00 BP 136 / 97; Pulse 121; Resp 24; Pulse Ox 100% ; Pain 0/10; al4 21:30 BP 116 / 49; Pulse 99; Resp 24; Pulse Ox 100% ; Pain 0/10; al4 22:30 BP 102 / 65; Pulse 97; Resp 24; Pulse Ox 100% ; Pain 0/10; al4 12/01 00:30 BP 135 / 89; Pulse 94; Resp 24; Pulse Ox 100% ; al4 01:30 BP 104 / 72; Pulse 97; Resp 23; Pulse Ox 100% ; al4 03:30 BP 134 / 85; Pulse 96; Resp 23; Temp 98.1; Pulse Ox 100% ; al4 06:03 BP 138 / 71; Pulse 104; Resp 20; Pulse Ox 100% ; Pain 0/10; al4 MDM: 11/30 21:00 Patient medically screened. cp 21:00 Differential diagnosis: CHF exacerbation, pneumonia, pulmonary edema, Pulmonary cp Embolism Sepsis. 22:00 Data reviewed: vital signs, nurses notes, lab test result(s), EKG, radiologic studies, cp plain films. 22:00 Test interpretation: by ED physician or midlevel provider: ECG, plain radiologic cp studies. Physician consultation: Malcom GUIDO was called at 22:00, was contacted at 22:00, regarding admission, to the telemetry unit. patient's condition. 11/30 20:53 Order name: Blood Culture Adult (2) kj1 11/30 20:54 Order name: PT-INR kj1 11/30 20:54 Order name: Ptt, Activated kj1 11/30 20:59 Order name: Basic Metabolic Panel cp 11/30 20:59 Order name: CBC with Diff cp 11/30 20:59 Order name: LFT's cp 11/30 20:59 Order name: Magnesium cp 11/30 20:59 Order name: NT PRO-BNP cp 11/30 20:59 Order name: Troponin HS cp 11/30 20:59 Order name: Type And Screen cp 11/30 20:59 Order name: Lactate cp 11/30 20:59 Order name: Procalcitonin cp 11/30 21:00 Order name: Urine Microscopic Only cp 11/30 21:29 Order name: Urine --Ancillary (enter results) kj1 11/30 22:40 Order name: CBC with Automated Diff EDMS 11/30 22:41 Order name: ABG Arterial Blood Gas EDMS 11/30 22:41 Order name: Basic Metabolic Panel EDMS 11/30 22:41 Order name: CKMB Creatine Kinase MB EDMS 11/30 22:41 Order name: Lactate EDMS 11/30 22:41 Order name: COVID-19/FLU A+B/RSV EDMS 11/30 22:41 Order name: Procalcitonin EDMS 11/30 22:41 Order name: Urine Dipstick-Ancillary EDMS 11/30 22:41 Order name: CBC Smear Scan EDMS 11/30 22:41 Order name: Urinalysis W/Microscopic EDMS 11/30 22:41 Order name: NT PRO-BNP EDMS 11/30 23:05 Order name: Type and Screen EDMS 11/30 23:33 Order name: ABO/RH no charge EDMS 12/01 00:02 Order name: Lactate Sepsis 2 HR Follow-up EDMS 12/01 03:52 Order name: CBC with Automated Diff EDMS 12/01 04:07 Order name: Comprehensive Metabolic Panel EDMS 11/30 20:59 Order name: XRAY Chest (1 view) cp 11/30 20:59 Order name: EKG; Complete Time: 05:18 cp 11/30 20:59 Order name: Cardiac monitoring; Complete Time: 21:25 cp 11/30 20:59 Order name: EKG - Nurse/Tech; Complete Time: 21:25 cp 11/30 20:59 Order name: IV Saline Lock; Complete Time: 21:25 cp 11/30 20:59 Order name: Labs collected and sent; Complete Time: 21:25 cp 11/30 20:59 Order name: O2 Per Protocol; Complete Time: 21:25 cp 11/30 20:59 Order name: O2 Sat Monitoring; Complete Time: 21:25 cp 11/30 21:00 Order name: Urine Dipstick-Ancillary (obtain specimen); Complete Time: 21:25 cp 11/30 21:00 Order name: Urine Test (obtain specimen); Complete Time: 21:25 cp 11/30 22:41 Order name: RAD EDSD 12/01 04:07 Order name: Phosphorus EDSD 12/01 04:07 Order name: Lipid Profile EDSD 12/01 04:07 Order name: T4 Free EDMS 12/01 04:07 Order name: Magnesium EDMS 12/01 04:07 Order name: Thyroid Stimulating Hormone EDSD 12/01 05:42 Order name: Urine --Ancillary EDSD 12/01 07:16 Order name: Transferrin Sat/Iron Binding EDMS 12/01 07:16 Order name: Ferritin EDMS 12/01 07:25 Order name: Blood Culture EDMS 12/01 08:54 Order name: Urine Culture EDSD 12/01 10:56 Order name: Protime (+INR) EDMS 12/01 10:56 Order name: PTT, Activated Partial Thromb EDMS 12/01 20:39 Order name: Blood Culture EDSD 12/01 21:36 Order name: Blood Culture EDMS EC:55 Rhythm is regular. QRS interval is prolonged at 102 msec. QT interval is normal. cp Interpreted by me. Reviewed by me. Administered Medications: 21:24 Drug: SOLU-Medrol (methylPrednisoLONE) 125 mg Route: IVP; Site: left antecubital; as6 21:24 Drug: Lasix (furosemide) 40 mg Route: IVP; Site: left antecubital; as6 Disposition: 12/02 01:57 Co-signature as Attending Physician, Vinnie Connor MD. mh7 Disposition Summary: 11/30/21 22:12 Hospitalization Ordered Hospitalization Status: Inpatient Admission cp Provider: Malcom Donis cp Condition: Stable cp Problem: an acute exacerbation cp Symptoms: have improved cp Bed/Room Type: Standard cp Location: Telemetry/MedSurg (Inpatient)(12/01/21 20:38) Room Assignment: 204(12/01/21 20:38) Diagnosis - Unspecified combined systolic (congestive) and diastolic (congestive) heart failure cp - Hypoxemia cp - Unspecified atrial flutter cp - Morbid (severe) obesity due to excess calories cp Forms: - Medication Reconciliation Form cp - SBAR form cp Signatures: Dispatcher [employer] Libertad Stratton RN RN Joe Rod PA PA cp Vinnie Connor MD MD mh7 Osiel Horan RN RN as6 Bean Herbert Corrections: (The following items were deleted from the chart) 11/30 22:14 22:12 Telemetry/MedSurg (Inpatient) cp mw 22:14 22:12 cp mw 12/01 20:38 11/30 22:14 [facility] ER HOLD mw mw 12/01 20:38 11/30 22:14 ERHOLD- mw mw
--- NOTE | 2021-11-30 22:53 | P.HP ---
Certification for Inpatient Patient admitted to: Inpatient With expected LOS: <2 Midnights Patient will require the following post-hospital care: None Practitioner: I am a practitioner with admitting privileges, knowledge of patient current condition, hospital course, and medical plan of care. Services: Services provided to patient in accordance with Admission requirements found in Title 42 Section 412.3 of the Code of Federal Regulations Patient History Date of Service: 11/30/21 Reason for admission: CHF exacerbation History of Present Illness: Ms. Jacob is a 46 yo obese female with CHF, HTN, HLD, DM, atrial fibrillation on eliquis who presents with increased SOB and REYES beginning yesterday and worsening tonight. She reports edema, orthopnea, PND, lightheadness and dizzines, fatigue and sluggishness. She is on 2.5L of O2 at home, but was placed on BIPAP upon arrival. She says she has been compliant with her medications at home. She has a decubitus ulcer on her L buttock with plan to for debridement with surgery. In anticipation for surgery, she saw her histologist technologist and was switched from coumadin to eliquis 3 weeks ago. She says this triggered an episode of menorrhaghia and vaginal blood clots, but yesterday the bleeding stopped. CXR IMPRESSION: Interstitial edema/congestive heart failure, worsened since 09/16/2021. Allergies Penicillins Allergy (Verified 07/18/21 22:08) Hives/Rash Home Medications: Acetaminophen [Tylenol] 650 mg PO Q4H PRN 07/18/21 Magnesium Oxide [Mag 0X*] 400 mg PO BID #60 tab 08/08/21 Zinc Sulfate [Zinc Sulfate*] 220 mg PO DAILY #30 cap 08/08/21 Potassium Oral Tab [Klor-Con 10 mEq Tab*] 10 meq PO BID 09/03/21 Warfarin Sodium [Coumadin*] 4 mg PO DAILY #30 tab 09/07/21 Furosemide [Lasix] 40 mg PO DAILY #30 tab 09/18/21 Metoprolol Tartrate [Lopressor*] 25 mg PO BID 6AM 6PM #60 tab 09/18/21 Mupirocin Oint [Bactroban 2% Ointment] 22 gm TP DAILY 10/03/21 - Past Medical/Surgical History Diabetic: Yes -: afib/aflutter -: HTN -: HLD -: morbid obesity -: DM -: asthma -: CARLOS -: anxiety -: stage 2 decubitus ulcer L buttocks -: CHF -: fibromyalgia -: PCOS -: cornea transplant Psychosocial/ Personal History: Unable to obtain - Social History Smoking Status: Never smoker Alcohol use: No CD- Drugs: No Caffeine use: No Place of Residence: Home Review of Systems 10-point ROS is otherwise unremarkable General: Malaise Eyes: Unremarkable ENT: Unremarkable Respiratory: Shortness of Breath, SOB with Excertion Cardiovascular: Orthopnea, Paroxysmal Noc. Dyspnea, Edema Gastrointestinal: Unremarkable Genitourinary: Unremarkable Musculoskeletal: Unremarkable Integumentary: Unremarkable Neurological: Weakness, As per HPI Lymphatics: Unremarkable Physical Examination - Physical Exam General: Alert, Oriented x3, Obese HEENT: Atraumatic, PERRLA, Mucous membr. moist/pink, EOMI, Sclerae nonicteric Neck: Supple, 2+ carotid pulse no bruit, No LAD, Without JVD or thyroid abnormality Respiratory: Diminished Cardiovascular: Regular rate/rhythm, Normal S1 S2, Edema Gastrointestinal: Normal bowel sounds, No tenderness Musculoskeletal: No tenderness Integumentary: Skin breakdown, Pressure ulcer Neurological: Normal speech, Normal strength at 5/5 x4 extr, Normal tone, Normal affect Lymphatics: No axilla or inguinal lymphadenopathy - Studies Laboratory Data (last 24 hrs) 11/30/21 19:55: Sodium 141, Potassium 3.6, BUN 10, Creatinine 0.87, Glucose 112 H 11/30/21 19:55: WBC 8.80, Hgb 10.4 L, Hct 35.1 L, Plt Count 356 Assessment and Plan - Problems (Diagnosis) (1) UTI (urinary tract infection) Current Visit: Yes Status: Acute Qualifiers: Urinary tract infection type: site unspecified Hematuria presence: with hematuria Qualified Code(s): N39.0 - Urinary tract infection, site not specified; R31.9 - Hematuria, unspecified (2) Congestive heart failure Current Visit: No Status: Acute Qualifiers: Heart failure type: unspecified Heart failure chronicity: acute on chronic Qualified Code(s): I50.9 - Heart failure, unspecified (3) History of atrial fibrillation Current Visit: No Status: Chronic (4) Pressure ulcer Current Visit: No Status: Chronic Qualifiers: Pressure injury location: buttock Pressure injury stage: unspecified pressure injury stage Laterality: left Qualified Code(s): L89.329 - Pressure ulcer of left buttock, unspecified stage (5) Respiratory failure Current Visit: No Status: Acute Qualifiers: Chronicity: acute Respiratory failure complication: hypoxia Qualified Code(s): J96.01 - Acute respiratory failure with hypoxia (6) HTN (hypertension) Current Visit: No Status: Chronic Qualifiers: - Plan on BIPAP continue IV lasix continue daily weights, low sodium diet ECHO pending continue IV ceftriaxone wound care consulted monitor hemoglobin reconcile and continue home medications DVT ppx Discharge Plan: Home Plan to discharge in: 72 Hours - Advance Directives Does patient have a Living Will: No Does patient have a Durable POA for Healthcare: No - Code Status/Comfort Care Code Status Assessed: Yes (full code ) Critical Care: No Time Spent Managing Pts Care (In Minutes): 70
[2021-12-01 00:06] VITALS: BMI 72.3
[2021-12-01] MEDS ORDERED: NA CHLORIDE 0.9% 50 ML ONE ×2 (00:12→09:44)
[2021-12-01] MEDS ORDERED: CEFTRIAXONE 1000 MG/VIAL ONE ×2 (00:12→09:43)
[2021-12-01] MEDS: CEFTRIAXONE 1,000 MG in NA CHLORIDE 0.9% 50 ML IVPB SCH ×2 (00:21→09:00)
[2021-12-01 03:51] LABS: Absolute Lymphocytes (CBC) 1.4 K/uL (0.7-4.9); Hematocrit 29.9 % (36.0-45.0); Lymphocytes % 17.8 % (15.3-44.8); MPV 8.1 fL (7.6-11.3); RBC Red Blood Cell Count 3.89 M/uL (3.86-4.86)
[2021-12-01 04:06] LABS: ALT/SGPT 14 U/L (12-78); AST/SGOT 13 U/L (15-37); Albumin 2.4 g/dL (3.4-5.0); Alkaline Phosphatase 53 U/L (45-117); BUN Blood Urea Nitrogen 8 mg/dL (7-18); Bicarbonate 30 mmol/L (21-32); Bilirubin Total 0.9 mg/dL (0.2-1.0); Glucose Level 89 mg/dL (74-106); HDL Cholesterol 33 mg/dL (40-60); LDL Cholesterol, Calculated 43 (<130); Magnesium 1.9 mg/dL (1.8-2.4); Phosphorus 3.7 mg/dL (2.5-4.9); Potassium 3.8 mmol/L (3.5-5.1); Protein, Total 7.7 g/dL (6.4-8.2); Sodium Level 142 mmol/L (136-145)
[2021-12-01 07:16] LABS: Ferritin 19.7 ng/mL (8-388)
[2021-12-01] MEDS ORDERED: DILTIAZEM HCL 125 MG/25 ML VIAL IVP ONE (08:45)
[2021-12-01] MEDS ORDERED: dilTIAZem HCL 25 MG/5 ML VIAL IV ONE ×2 (09:03→16:00)
[2021-12-01] MEDS: ENOXAPARIN 40 MG/0.4 ML SQ SCH (09:15)
[2021-12-01] MEDS: FUROSEMIDE 40 MG/4 ML VIAL IV SCH ×2 (09:15→17:00)
[2021-12-01] MEDS: METOPROLOL TAR 25 MG TAB PO SCH ×2 (09:34→22:09)
[2021-12-01] MEDS ORDERED: FUROSEMIDE 40 MG/4 ML VIAL ONE ×2 (09:43→17:19)
[2021-12-01] MEDS ORDERED: METOPROLOL TAR 25 MG TAB ONE ×2 (09:43→22:08)
[2021-12-01] MEDS ORDERED: ENOXAPARIN 40 MG/0.4 ML SQ ONE (09:44)
[2021-12-01 10:55] LABS: Protime INR 1.37
--- NOTE | 2021-12-01 14:29 | P.PN ---
Subjective Date of Service: 12/01/21 Chief Complaint: CHF exacerbation Patient cannot be weaned off BiPAP this morning. She is still BiPAP dependent. She has no new complaint. Physical Examination - Vital Signs Temperature: 98.4 F Blood Pressure: 130/78 Pulse: 98 Respirations: 20 Pulse Ox (%): 100 - Physical Exam General: Alert, In no apparent distress, Obese (Morbidly obese) HEENT: Mucous membr. moist/pink Neck: Supple, JVD not distended Respiratory: Diminished (Bilateral) Cardiovascular: Regular rate/rhythm, Normal S1 S2, Edema (Trace bilateral ankle edema) Gastrointestinal: Soft and benign, Non-distended, No tenderness Musculoskeletal: No swelling Integumentary: No rashes, No cyanosis Neurological: Normal speech, Normal strength at 5/5 x4 extr - Studies Laboratory Data (last 24 hrs) 11/30/21 20:59: WBC Cancelled, Hgb Cancelled, Hct Cancelled, Plt Count Cancelled 11/30/21 20:59: Sodium Cancelled, Potassium Cancelled, BUN Cancelled, Creatinine Cancelled, Glucose Cancelled, Magnesium Cancelled, Total Bilirubin Cancelled, AST Cancelled, ALT Cancelled, Alkaline Phosphatase Cancelled 11/30/21 19:55: Sodium 141, Potassium 3.6, BUN 10, Creatinine 0.87, Glucose 112 H 11/30/21 19:55: WBC 8.80, Hgb 10.4 L, Hct 35.1 L, Plt Count 356 11/30/21 10:35: PT 15.8 H, INR 1.37, APTT 30.6 Assessment And Plan - Current Problems (Diagnosis) (1) Acute on chronic systolic heart failure Current Visit: Yes Status: Acute (2) Acute respiratory failure with hypoxia Current Visit: Yes Status: Acute (3) Rapid atrial fibrillation Current Visit: Yes Status: Acute (4) Obesity hypoventilation syndrome Current Visit: No Status: Acute (5) HTN (hypertension) Current Visit: No Status: Chronic Qualifiers: (6) Morbid obesity Current Visit: No Status: Chronic (7) UTI (urinary tract infection) Current Visit: Yes Status: Acute Qualifiers: Urinary tract infection type: site unspecified Hematuria presence: with hematuria Qualified Code(s): N39.0 - Urinary tract infection, site not specified; R31.9 - Hematuria, unspecified - Plan Continue BiPAP therapy as needed. IV Lasix Supplemental oxygen as needed. Strict intake and output monitoring. Patient's heart rate increased up to 200 this morning. She was given a dose of IV Cardizem for rapid heart rate.. Metoprolol resumed. Heart rate significantly improved after resuming her met oprolol. Continue IV Rocephin for UTI.
[2021-12-02 05:49] LABS: Absolute Lymphocytes (CBC) 1.4 K/uL (0.7-4.9); Hematocrit 30.4 % (36.0-45.0); Lymphocytes % 22.6 % (15.3-44.8); MPV 7.8 fL (7.6-11.3); RBC Red Blood Cell Count 3.95 M/uL (3.86-4.86)
[2021-12-02 05:58] LABS: Potassium 3.2 mmol/L (3.5-5.1)
[2021-12-02] MEDS ORDERED: CEFTRIAXONE 1000 MG/VIAL ONE (07:55)
[2021-12-02] MEDS: METOPROLOL TAR 25 MG TAB PO SCH (08:12)
[2021-12-02] MEDS: ENOXAPARIN 40 MG/0.4 ML SQ SCH (08:13)
[2021-12-02] MEDS: CEFTRIAXONE 1,000 MG in NA CHLORIDE 0.9% 50 ML IVPB SCH (08:14)
[2021-12-02] MEDS: FUROSEMIDE 40 MG/4 ML VIAL IV SCH (08:14)
--- NOTE | 2021-12-02 09:48 | P.DS ---
Admission Date: 11/30/21 Discharge Date: 12/02/21 Disposition: ROUTINE DISCHARGE Discharge Condition: FAIR Reason for Admission: CHF exacerbation - Problems (1) Acute on chronic systolic heart failure Current Visit: Yes Status: Acute (2) Acute respiratory failure with hypoxia Current Visit: Yes Status: Acute (3) Rapid atrial fibrillation Current Visit: Yes Status: Acute (4) Obesity hypoventilation syndrome Current Visit: No Status: Acute (5) HTN (hypertension) Current Visit: No Status: Chronic Qualifiers: (6) Morbid obesity Current Visit: No Status: Chronic (7) UTI (urinary tract infection) Current Visit: Yes Status: Acute Qualifiers: Urinary tract infection type: site unspecified Hematuria presence: with hematuria Qualified Code(s): N39.0 - Urinary tract infection, site not specified; R31.9 - Hematuria, unspecified Brief History of Present Illness: Ms. Jacob is a 46 yo obese female with CHF, HTN, HLD, DM, atrial fibrillation on eliquis who presents with increased SOB and REYES beginning yesterday and worsening tonight. She reports edema, orthopnea, PND, lightheadness and dizzines, fatigue and sluggishness. She is on 2.5L of O2 at home, but was placed on BIPAP upon arrival. She says she has been compliant with her medications at home. She has a decubitus ulcer on her L buttock with plan to for debridement with surgery. In anticipation for surgery, she saw her picture enlarger and was switched from coumadin to eliquis 3 weeks ago. Patient hospitalized for further management of CHF exacerbation. Hospital Course: Patient admitted to the medical floor and treated with IV Lasix. Patient with a history of A. fib. Her heart rate increased to 160-200 at some point. Rapid heart rate responded to a dose of IV Cardizem. Her heart rate was later controlled with her home metoprolol dose of 25 mg twice daily. Patient diuresed well with IV Lasix, shortness of breath improved with treatment, patient tolerated baseline oxygen. She used BiPAP during sleep. Patient has clinically improved. She will need to follow-up with pulmonary for arrangements for BiPAP. She is prescribed extra dose of Lasix, to take Lasix 40 mg twice daily for the next 1 week and then switch to her usual maintenance dose of 40 mg daily. She may resume her anticoagulation on discharge. Vital Signs/Physical Exam: Temp Pulse Resp BP Pulse Ox 98.5 F 111 H 20 110/68 98 12/02/21 08:00 12/02/21 08:14 12/02/21 08:00 12/02/21 08:14 12/02/21 08:00 General: Alert, Obese HEENT: Mucous membr. moist/pink Neck: JVD not distended Respiratory: Diminished (Bilateral) Cardiovascular: No edema, Normal S1 S2, Irregular heart rate/rhythm Gastrointestinal: Soft and benign, Non-distended, No tenderness Musculoskeletal: No swelling Integumentary: No rashes Neurological: Normal speech, Normal strength at 5/5 x4 extr Laboratory Data at Discharge: WBC 6.10 K/uL (4.3-10.9) D 12/02/21 05:21 Hgb 9.3 g/dL (12.0-15.0) L 12/02/21 05:21 Hct 30.4 % (36.0-45.0) L 12/02/21 05:21 Plt Count 327 K/uL (152-406) 12/02/21 05:21 PT 15.8 SECONDS (9.5-12.5) H 11/30/21 10:35 INR 1.37 11/30/21 10:35 APTT 30.6 SECONDS (24.3-36.9) 11/30/21 10:35 Sodium 140 mmol/L (136-145) 12/02/21 05:21 Potassium 3.2 mmol/L (3.5-5.1) L 12/02/21 05:21 BUN 10 mg/dL (7-18) 12/02/21 05:21 Creatinine 0.71 mg/dL (0.55-1.3) 12/02/21 05:21 Glucose 90 mg/dL (74-106) 12/02/21 05:21 Phosphorus 3.7 mg/dL (2.5-4.9) 12/01/21 03:32 Magnesium 1.9 mg/dL (1.8-2.4) 12/01/21 03:32 Total Bilirubin 0.9 mg/dL (0.2-1.0) 12/01/21 03:32 AST 13 U/L (15-37) L 12/01/21 03:32 ALT 14 U/L (12-78) 12/01/21 03:32 Alkaline Phosphatase 53 U/L (45-117) 12/01/21 03:32 Triglycerides 58 mg/dL (<150) 12/01/21 03:32 Cholesterol 88 mg/dL (<200) 12/01/21 03:32 HDL Cholesterol 33 mg/dL (40-60) L 12/01/21 03:32 Cholesterol/HDL Ratio 2.67 12/01/21 03:32 Home Medications: Magnesium Oxide [Mag 0X*] 400 mg PO BID #60 tab 08/08/21 Potassium Oral Tab [Klor-Con 10 mEq Tab*] 10 meq PO BID 09/03/21 Metoprolol Tartrate [Lopressor*] 25 mg PO BID 6AM 6PM #60 tab 09/18/21 Mupirocin Oint [Bactroban 2% Ointment*] 22 gm TP DAILY 10/03/21 Apixaban [Eliquis] 2.5 mg PO DAILY 12/01/21 Buspirone HCl 7.5 mg PO BID 12/01/21 Furosemide [Lasix*] 40 mg PO BID 60 Days #30 tab 12/02/21 New Medications: Furosemide [Lasix*] 40 mg PO BID 60 Days #30 tab Diet: AHA Activity: Ad shirin (4) Followup: Marquez Roberts MD [ACTIVE - CAN ADMIT] - 1 Week (Obstructive Sleep apnea) Time spent managing pt's care (in minutes): 36
[2021-12-02 10:39] VITALS: O2SAT 98
[2021-12-02 12:59] VITALS: BP 140/72; TEMP 97.4
[2021-12-02] MEDS ORDERED: METOPROLOL TAR 25 MG TAB PO SCH ×2 (18:00)
--- NOTE | 2021-12-04 07:35 | EKG ---
Test Date: 2021-12-01 Test Time: 09:09:09 Film Historian: MEASUREMENT RESULTS: Intervals: Rate: 124 ND: QRSD: 98 QT: 240 QTc: 344 [place]: P: -66 ND: QRS: 66 T: -52 INTERPRETIVE STATEMENTS: Atrial flutter with 2:1 AV conduction Low voltage QRS Inferior infarct, age undetermined Abnormal ECG Compared to ECG 11/30/2021 19:49:01 No significant changes Electronically Signed On 12-04-21 07:27:04 FINANCIAL ADMINISTRATOR by Sav Domínguez
== END 2021-12-02 14:00 | disposition home health service (06) | DRG 291 ==
LOC: ER 19:12 → ERHOLD 22:02 → 2ND 12-01 20:44
PROVIDERS: ADMIT Internal Medicine; ATTEND Internal Medicine
PROC: 5A09457 Assistance with Respiratory Ventilation, 24-96 Consecutive Hours, Continuous Positive Airway Pressure (ICD-10-PCS; principal; 2021-11-30)
DX: I11.0 Hypertensive heart disease with heart failure (principal); I50.23 Acute on chronic systolic (congestive) heart failure; J96.01 Acute respiratory failure with hypoxia; E66.2 Morbid (severe) obesity with alveolar hypoventilation; Z68.45 Body mass index [BMI] 70 or greater, adult; N39.0 Urinary tract infection, site not specified; I48.91 Unspecified atrial fibrillation; E78.5 Hyperlipidemia, unspecified; L89.322 Pressure ulcer of left buttock, stage 2; Z79.01 Long term (current) use of anticoagulants; Z20.822 Contact with and (suspected) exposure to COVID-19
CPT/HCPCS: 0241U; 36415; 71045; 80048; 80053; 80061; 81001; 81003; 81025; 82553; 82728; 82805; 83540; 83605; 83735; 83880; 84100; 84145; 84439; 84443; 84466; 85025; 85610; 85730; 86850; 86900; 86901; 87040; 87086; 87088; 93005; 94660; 94760; 96374; 96375; 99285; J1650; J1940

== ENCOUNTER 2022-03-10 17:36 | Emergency (ER) | payer BC ==
[2022-03-10] MEDS ORDERED: ETOMIDATE 20 MG/10 ML VIAL IV ONE (17:37)
[2022-03-10] MEDS ORDERED: SUCCINYLCHOLINE 20 MG/ML (10 ML) IV ONE (17:37)
--- OUTSIDE RECORDS SUMMARY | 2022-03-10 17:41 | XMS REPORT | Continuity of Care Document ---
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 14:20:00 Encounter Marbella Allan [facility] 2021-02-14 2021-02-14 Inpatient DUGLAS, [facility] [id number] [place] 15:05:12 15:05:16 KIMIMELISSA Casasmazin 2021-02-13 2021-02-13 Outpatient NEELAM, [facility] [id number] [place] 12:05:21 12:09:39 MARBELLA Augusto 2021-02-11 2021-02-[address] [facility] [id number] [place] 18:23:09 19:21:38 Health 2021-02-11 2021-02-[address] 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 350.1.13.10 [facility] 4.2.7.2.686 MATERNAL [id number] & CHILD 111 [facility] 2020-11-06 2020-11-06 Telephone Kailey [facility] [id number] 00:00:00 00:00:00 Connie Zhang EMAIL PRODUCER 350.1.13.10 [facility] 4.2.7.2.686 MATERNAL [id number] & CHILD 111 [facility] Results Test Description Test Time Test Comments Results Result Comments Source - XR CHEST 1 V 2021-07-17 17:09:00 [facility] 1975 Sex: F [facility] 1975 [facility]S: 46 / F [address] Unit #: [id number] Loc: [place] [address] Phys: Darryl Haney MD Acct: [id number] Dis Date: Status: ADM IN PHONE #: [phone] Exam Date: 07/17/2021 1640 FAX #: Reason: SOB EXAMS: CPT: [id number] XR CHEST 1 V 76058 Fluoro Time: DAP (Gy m2): Air Kerma [...] PAGE 1 Signed Report Name: GRAZYNA GOMEZ [place] : 1975 Age/S: 46 / F [address] [facility] Unit #: [id number] Loc: [place] [address] Phys: Darryl Haney MD Acct: [id number] Dis Date: Status: ADM IN PHONE #: [phone] Exam Date: 07/17/2021 1640 FAX #: Reason: SOB EXAMS: CPT: [id number] XR CHEST 1 V 88011 Fluoro Time: DAP (Gy m2): Air Kerma (mGy): <Continued> Technologist: Antonella Walker, RT(R) Trnscb Date/Time: 07/17/2021 (1709) [email or web address] Orig Print D/T: S: 07/17/2021 (0569) PAGE 2 Signed Report PROTHROMBIN TIME 2021-07-17 [...] ileaflet mechanical va lve in aortic position.2. [facility] hanical prosthetic valv es (high risk), 2.5 - 3.5 P resence of Lupus Anticoagulant o r Antiphospholipi d Antibodies, Prevention of systemic embolism - Acut e Myocardial Infarction (t o prevent recurrent infar ct). PROTHROMBIN [id number] 11:32:00 Test Item Value Reference Range Interpretation [...] Bileaflet mecha nical valve in aortic position.2. [facility] hanical prosthetic valv es (high risk), 2.5 - 3.5 Presence of Lupus Anticoagu lant or Antiphospholi pid Antibodies, Pre vention of systemic e mbolism - Acute Myocard ial Infarction (t o prevent recurre nt infarct). PROTHROMBIN [id number] 18:18:00 Test Item Value Reference Range Interpretation [...] o prevent recurre nt infarct). CBC W/AUTO [id number] 14:36:00 Test Item Value Reference Range Interpretation [...] code NO DIFF/SCN CRITERIA = MDIFF) RBC [id number] 14:36:00 Test Item Value Reference Range Interpretation Comments HYPOCHROMIA (test code = HYPO) 2+ ON SCAN NONE A POIKILOCYTOSIS (test code = POIK) 2+ ON SCAN NONE A ANISOCYTOSIS (test code = ANISO) 3+ NONE A MICROCYTOSIS (test code = MICR) 3+ ON SCAN NONE A ROULEAUX (test code = ROU) 1+ ON SCAN NONE A CBC W/AUTO [id number] 14:35:00 Test Item Value Reference Range Interpretation [...] NO DIFF/SCN CRITERIA = MDIFF) CBC W/AUTO [id number] 14:35:00 Test Item Value Reference Range Interpretation [...] NO DIFF/SCN CRITERIA = MDIFF) CBC W/AUTO [id number] 13:53:00 Test Item Value Reference Range Interpretation [...] code = DIFF/SCN CRITERIA MDIFF) BASIC METABOLIC [id number] 13:51:00 Test Item Value Reference Range Interpretation [...] code = CA) 8.8 MG/DL 8.5-10.1 N [id number] 13:51:00 Test Item Value Reference Range Interpretation Comments MAGNESIUM (test code = MAG) 2.1 MG/DL 1.8-2.4 N GLUCOSE BEDSIDE [id number] 13:20:00 Test Item Value Reference Range Interpretation Comments GLUCOSE BEDSIDE TESTING (test code 110 mg/dL 70-110 N = GLUBED) PROTHROMBIN [id number] 06:00:00 Test Item Value Reference Range Interpretation [...] (t o prevent recurre nt infarct). VANCOMYCIN [id number] 21:30:00 Test Item Value Reference Range Interpretation Comments VANCOMYCIN TROUGH (test code = 25.2 mcG/ML 10-20 H VANCT) PROTHROMBIN [id number] 06:22:00 Test Item Value Reference Range Interpretation Comments PT PATIENT (test 16.5 SECONDS 9.3-12.9 H code = PTP) INTERNATIONAL NORMAL 1.46 INR Unit 0.8-1.2 H TARGET RATIO (test code = INR BY IN DICATION INR) Indication INR1. Prophyl axis of venous thrombos is 2.0 - 3. 0 (orthopedic yinka amelia), Prophylaxis of venous thrombos is (other than hig h-risk surgery), Chreelle tment of Deep Vein Thrombosis/Pulm onary Embolism, [...] recurre nt infarct). - XR CHEST 1 [id number] 15:50:00 [facility] 1975 Sex: F Name: GRAZYNA GOMEZ [place] : 1975 Age/S: 46 / F [address] Unit #: [id number] Loc: [place] [address] Phys: Darryl Haney MD Acct: [id number] Dis Date: Status: ADM IN PHONE #: [phone] Exam Date: 07/12/2021 1450 FAX #: Reason:sob EXAMS: CPT: [id number] XR CHEST 1 V 78388 Fluoro Time: DAP (Gy m2): Air Kerma [...] PAGE 1 Signed Report Name: GRAZYNA GOMEZ [place] : 1975 Age/S: 46 / F [address] [place] [address] Unit #: [id number] Loc: [place] [address] Phys: Darryl Haney MD Acct: [id number] Dis Date: Status: ADM INPHONE #: [phone] Exam Date: 07/12/2021 1450 FAX #: Reason: sob EXAMS: CPT: [id number] XR CHEST 1 V 33946 FluoroTime: DAP (Gy m2): Air Kerma (mGy): <Continued> Technologist: Karen Mathews, RT(R)(CT); Vignesh Redd, RT(R)(CT); .Trnscb Date/Time: 07/12/2021 (1534) [email or web address] Orig Print D/T: S: 07/12/2021 (0975) PAGE 2 Signed ReportBASIC METABOLIC PANEL 2021-07-12 [...] 8.6 MG/DL 8.5-10.1 N CA) BASIC METABOLIC [id number] 05:18:00 Test Item Value Reference Range Interpretation [...] = CA) 8.6 MG/DL 8.5-10.1 N PROTHROMBIN [id number] 05:07:00 Test Item Value Reference Range Interpretation [...] o prevent recurre nt infarct). ARTERIAL BLOOD [id number] 12:36:00 Test Item Value Reference Range Interpretation [...] (test No Circ.CHK POSITIVE code = MODALL) PaO2/[id number] 12:36:00 Test Item Value Reference Range Interpretation Comments PaO2/FiO2 (test code mm/Hg See_Comment [Autom ated message] The = [id number]) system which ge nerated this result transmit sandy reference range : 200. The reference range was not used to interpr et this result as lucila l/abnormal. ARTERIAL BLOOD [id number] 12:36:00 Test Item Value Reference Range Interpretation [...] (test No Circ.CHK POSITIVE code = MODALL) PaO2/[id number] 12:36:00 Test Item Value Reference Range Interpretation Comments PaO2/FiO2 (test 202.8 mm/Hg See_Comment [Automated message] The code = [id number]) system [facility] generated this result tra nsmitted reference range : 200. The reference r will was not used to int erpret this result as normal/abnormal . PROTHROMBIN [id number] 05:50:00 Test Item Value Reference Range Interpretation [...] o prevent recurre nt infarct). THROMBOPLASTIN TIME [id number] 05:50:00 Test Item Value Reference Range Interpretation Comments THROMBOPLASTIN TIME PARTIAL 30.5 SECONDS 26-35 N (test code = PTT) [id number] 05:50:00 Test Item Value Reference Range Interpretation [...] STS AND APPROPRIATECLIN ICAL EUALUATIONS. RULE OUT ID [id number] 05:42:00 Test Item Value Reference Range Interpretation [...] yby method. UA RFLX MICR CULT IF [id number] 05:13:00 Test Item Value Reference Range Interpretation [...] RiskForSepsis-no oth srcUA RFLX MICR CULT IF [id number] 05:11:00 Test Item Value Reference Range Interpretation [...] for culture: RiskForSepsis-no oth srcNT PRO-BRAIN NATRIURETIC [id number] 03:15:00 Test Item Value Reference Range Interpretation Comments NT PRO-BRAIN NATRIURETIC PEPTI 1759 PG/ML 0-100 H (test code = PROBNP) CBC W/AUTO [id number] 02:26:00 Test Item Value Reference Range Interpretation [...] NT WITH AUTO DIFFERENTI AL. CBC W/AUTO [id number] 02:26:00 Test Item Value Reference Range Interpretation [...] CONSISTA NT WITH AUTO DIFFERENTI AL. RBC [id number] 02:26:00 Test Item Value Reference Range Interpretation Comments HYPOCHROMIA (test code = HYPO) 1+ ON SCAN NONE ANISOCYTOSIS (test code = 1+ NONE ANISO) STOMATOCYTES (test code = STO) TRACE ON SCAN NONE CBC W/AUTO [id number] 02:26:00 Test Item Value Reference Range Interpretation [...] CONSISTA NT WITH AUTO DIFFERENTI AL. LACTIC [id number] 01:43:00 Test Item Value Reference Range Interpretation Comments LACTIC ACID (test code = LACT) 1.2 mmol/L 0.4-2.0 N BASIC METABOLIC [id number] 01:41:00 Test Item Value Reference Range Interpretation [...] 8.9 MG/DL 8.5-10.1 N Completed by Nursing: CHRISTIANOHEPATIC FUNCTION [id number] 01:41:00 Test Item Value Reference Range Interpretation [...] N code = ALKP) Completed by Nursing: [id number] 01:41:00 Test Item Value Reference Range Interpretation [...] may sharon yby method. Completed by Nursing: MARCO A 19 INHOUSE [id number] 01:36:00 Test Item Value Reference Range Interpretation Comments COVID 19 INHOUSE AG NEGATIVE Negative Per manu facturer, (test code = negative result s should [id number]) be treated aspr esumptive and, if inconsi [...] symptoms co nsistent with COVID-19. CBC W/AUTO [id number] 01:15:00 Test Item Value Reference Range Interpretation [...] DIFF/SCN CRITERIA MDIFF) - XR CHEST 1 [id number] 23:46:00 [facility] 1975 Sex: F Name: GRAZYNA GOMEZ [facility] : 1975 Age/S: 46 / F [address] Unit #: [id number] Loc: [place] [address] Phys: Ruddy Vargas MD Acct: [id number] Dis Date: Status: PRE ER PHONE #: [phone] Exam Date: 07/10/2021 233 FAX #: Reason:Code Sepsis EXAMS: CPT: [id number] XR CHEST 1 V 29670 Fluoro Time: DAP (Gy m2): Air Kerma [...] GOMEZ : 1975 Age/S: 46 / F [address] Unit #: [id number] Loc: [place] [address] Phys: Ruddy Vargas Acct: [id number] Dis Date: Status: PRE ER PHONE #: [phone] Exam Date: 07/10/2021 2335 FAX #: Reason: Code Sepsis EX AMS: CPT: [id number] XR CHEST 1 V 97977 Fluoro Time: DAP (Gy m2): Air Kerma (mGy): <Continued> Technologist: Reed Sanderson RT(R) Trnidb Date/Time: 07/10/2021 (7276) [email or web address] Orig Print D/T: S: 07/10/2021 (5044) PAGE 2 Signed ReportPT/INR 2021-05-25 15:42:00 Test Item Value Reference Range Interpretation Comments PT (test code = 15.7 See_Comment H [Automated message] 5902-2) The system [employer] generated this result transmitted ref erence range: 11.7 - 1 4.5 Seconds. The re ference range was not u sed to interpret this result as normal/abnor mal. 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 Layer Helper: Doc: 1975 Requested By: PUNEET LOPEZ Order Number: [id number] Reading MD: Mee Vincent MeasurementsIntervals Philipp Rate: 101 P: NV: 0 QRS: 56QRSD: 112 T: 42QT: 381 QTc: 439 Interpretive StatementsATRIAL FIBRILLATION WITH RAPID VENTRICULAR RESPONSELOW QRS VOLTAGE IN PRECORDIAL LEADS [QRS DEFLECTION < 1.0 mVIN CHEST LEADS]MODERATE INTRAVENTRICULAR CONDUCTION DELAY [110+ ms QRS DURATION]NONSPECIFIC T-WAVE ABNORMALITYABNORMAL RHYTHM ECGReviewed by Electronically Signed On 05-25-2021 20:02:19CDT by [facility] medical centerZmags Euwykq01 LEAD [id number] 11:17:5812 LEAD EKG FOR [facility] Test Date: 5925-99-59Xwe Name: GRAZYNA GOMEZ Department: 5GMSPatient ID: [id number] Room: Gender: F 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 Layer Helper: Doc: 1975 Requested By: PUNEET LOPEZ Order Number: [id number] Reading MD: Mee Vincent MeasurementsIntervals Philipp Rate: 101 P: NV: 0 QRS: 56QRSD: 112 T: 42QT: 381 QTc: 439 Interpretive StatementsATRIAL FIBRILLATION WITH RAPID VENTRICULAR RESPONSELOW QRS VOLTAGE IN PRECORDIAL LEADS [QRS DEFLECTION < 1.0 mVIN CHEST LEADS]MODERATE INTRAVENTRICULAR CONDUCTION DELAY [110+ ms QRS DURATION]NONSPECIFIC T-WAVE ABNORMALITYABNORMAL RHYTHM ECGReviewed by Electronically Signed On 05-25-2021 20:02:19CDT by [facility]Connectriverview medical centerSlidebeanBasic Metabolic [id number] 05:32:00 Test Item Value Reference Range Interpretation Comments Sodium (test code = 141 mmol/L 960-334 5690-2) Potassium (test code = 3.8 mmol/L 3.5-5.1 2823-3) Chloride (test code = 93 mmol/L 98-107 L 2075-0) CO2 (test code = 45 mmol/L 21-31 H 84274901) Urea Nitrogen (test 8.0 mg/dL 7-25 code = 62963102) Creatinine (test code = 0.6 mg/dL 0.6-1.2 35709424) Glucose (test code = 98 mg/dL 70-110 36179864) Calcium (test code = 9.1 mg/dL 8.6-10.3 81337440) eGFR If Am >120 See_Comment [Automat ed message] (test code = 77328949) The s ystem which generated this result transmit sandy reference range : >=90 mL/min/1.7 3 m2. The reference r will was not used to interpret this result as normal/abnormal . eGFR If non- Am 111 See_Comment [Aut omated message] (test code = 23114440) The s ystem which generated this result transmit sandy reference range : >=90 mL/min/1.7 3 m2. The reference r will was not used to interpret this result as normal/abnormal . Anion Gap (test code = 3 mmol/L 5-16 L 34552508) Lab Interpretation Abnormal (test code = 02482-3) [facility]rettXqqcgjAbtjtcxqx0954-03-88 05:32:00 Test Item Value Reference Range Interpretation Comments Magnesium (test code = 61528429) 2.0 mg/dL 1.9-2.7 Lab Interpretation (test code = Normal 22770-5) [facility]-28 05:07:00 Test Item Value Reference Range Interpretation Comments WBC (test code = 6690-2) 7.0 K/uL 4.5-11 RBC (test code = 789-8) 4.31 See_Comment [Au tomated message] The system whic h generated this result transmit sandy reference [...] (test code = 54.8 fL 36.4-46.3 H 56413-3) Platelet (test code = 294 K/uL 150-400 777-3) Mean Platelet Volume 10.4 fL 9.4-12.4 (test code = 86510-0) Percent NRBC (test code 0.0 % = 95157405) Neutrophil (test code = 71.0 % 34-70 H 770-8) Lymphs (test code = 15.9 % 20-50 L 736-9) Monocytes (test code = 10.3 % 5-12 5905-5) Eos (test code = 713-8) 1.6 % 0.7-5 Basos (test code = 0.9 % 0.1-1.2 706-2) Immature Granulocytes 0.3 % 0-0.5 (test code = 11838705) Neutrophils (Absolute) 4.97 K/uL 1.56-6.13 (test code = 39622154) Lymphs (Absolute) (test 1.11 K/uL 1.18-3.74 L code = 12592770) Monocytes(Absolute) 0.72 K/uL 0.24-0.36 H (test code = 55283576) Eos (Absolute) (test 0.11 K/uL 0.04-0.36 code = 61763539) Baso (Absolute) (test 0.06 K/uL 0.01-0.08 code = 28076979) Immature Grans (Abs) 0.02 K/uL 0-0.03 (test code = 16017993) Absolute NRBC (test code 0.00 K/uL = 93915240) Lab Interpretation (test Abnormal code = 52260-2) [facility] Jcxk9450-02-30 16:53:00 Test Item Value Reference Range Interpretation Comments (test code = 47844845) Negative Negative Lab Interpretation (test code = Normal 30310-3) [facility] every 6 hours x 24 qnwsg1499-69-36 16:09:00 Test Item Value Reference Range Interpretation Comments PTT (test code = 45.1 See_Comment H The recomme nded 72299380) therapuetic ran ge is an APTT 61-103 seconds which corresponds to 0.3-0.7 anti Xa u/ml. [Automated mess age] The system [employer] generated this result transmitted ref erence range: 23.9 - 3 6.0 Seconds. The reference range was not used to int erpret this result as normal/abnormal . Lab Interpretation (test Abnormal code = 32014-4) [facility] [id number] 18:46:40IMPRESSION: 1. Scan findings strongly suggest that [...] silhouette.Signed By: Crissy Dupree MD, 05/22/2021 6:46 PMSkyline HospitalIhclmuZ-Mhcqz6650-32-06 19:13:00 Test Item Value Reference Range Interpretation Comments D-Dimer (test code = 3.22 See_Comment H Values of 79715181) quantitative D- Dimer less than 0.40 ug/mL [...] . Lab Interpretation (test Abnormal code = 08780-4) [facility] HospitalQlugzkTggofsuyks2178-47-67 18:55:00 Test Item Value Reference Range Interpretation Comments Color (test code = Yellow Colorless, Straw, 32360587) Yellow Clarity (test code = Clear Clear 80049340) Spec [place], Ur (test 1.012 1.001-1.035 code = 08643833) pH, Ur (test code = 6.0 5.0-8.0 85152987) Protein, Ur (test code Negative Negative mg/dL = 67373071) Glucose, Ur (test code Negative Negative mg/dL = 86229145) Ketone, Ur (test code = Negative Negative mg/dL 32739207) Bilirubin, Ur (test Negative Negative mg/dL code = 60619585) Nitrite, Ur (test code Negative Negative = 95182131) Leukocyte (test code = Negative Negative mg/dL 86676822) Blood, Ur (test code = 1+ Negative mg/dL A 55419970) RBC (test code = 5 See_Comment H [Automated message] 39663126) The system [employer] generated this result transmit sandy reference range : 0 - 4 /HPF. The reference range was not used to interpret this result as normal/abnormal . WBC (test code = 1 See_Comment [Automated message] 99480320) The system [employer] generated this result transmit sandy reference range : 0 - 5 /HPF. The reference range was not used to interpret this result as normal/abnormal . Epithelial Cell (test <1 See_Comment [Auto mated message] code = 45163645) The system which generated this result transmit sandy reference range : <=1 /HPF. The refer ence range was not u sed to interpret th is result as normal/abnormal . Mucous (test code = Present None seen /HPF A 85879244) Urobilinogen, Ur (test <1.0 See_Comment [Aut omated message] code = 95427061) The system which generated this result transmit sandy reference range : <1.0 EU/dL. The reference range was not used to interpret this result as normal/abnormal . Lab Interpretation Abnormal (test code = 45613-8) [facility] LEAD [id number] 17:44:5512 LEAD EKG FOR [facility] Test Date: 3718-91-44Mtp Name: GRAZYNA GOMEZ Department: 5520Patient ID: [id number] Room: Gender: F Terrazzo Layer Helper: [id number]: 1975 Requested By: PUNEET LOPEZ Order Number: [id number] Reading MD: Mee Vincent MeasurementsIntervals Philipp Rate: 115 P: NV: 0 QRS: 51QRSD: 116 T: 0QT: 169 QTc: 237 Interpretive StatementsATRIAL FLUTTER /TACHYCARDIA WITH RAPID VENTRICULAR RESPONSELOW QRS VOLTAGE IN PRECORDIAL LEADSMODERATE INTRAVENTRICULAR CONDUCTION DELAYNONSPECIFIC T-WAVE ABNORMALITYABNORMAL RHYTHM ECGReviewed by Electronically Signed On 05-22-2021 9:24:28 CDT by Mee Martínez [place] [address] LEAD [id number] 17:44:5512 LEAD EKG FOR [facility] Test Date: 0337-06-34Fdi Name: GRAZYNA GOMEZ Department: 5520Patient ID: [id number] Room: Gender: F Terrazzo Layer Helper: [id number]: 1975 Requested By: PUNEET LOPEZ Order Number: [id number] Reading : Mee Vincent MeasurementsIntervals Philipp Rate: 115 P: NV: 0 QRS: 51QRSD: 116 T: 0QT: 169 QTc: 237 Interpretive StatementsATRIAL FLUTTER/TACHYCARDIA WITH RAPID VENTRICULAR RESPONSELOW QRS VOLTAGE IN PRECORDIAL LEADSMODERATE INTRAVENTRICULAR CONDUCTION DELAYNONSPECIFIC T-WAVE ABNORMALITYABNORMAL RHYTHM ECGReviewed by Electronically Signed On 05-22-2021 9:24:28 CDT by Mee [facility]Lif[facility] HospitalTRANSTHORACIC ECHO (TTE)2021-05-21 10:14:00TRANSTHORACIC ECHO (TTE) Transthoracic Echo Report GRAZYNA GOMEZ Age: 46 Gender:F : 1975 Exam Date: 05/21/2021 06:37 ExamLocation: [facility] Ordering Phys: PUNEET LOPEZ Referring Phys: Reading Phys: Mee Vincent MD Fellow Phys: Fellow Phys: Professor Of Nursing: Taina Rene Reason For Exam: Indications: new afib, Other specified conduction disorders ICD-9 Codes: I45.89 Exam Type: TRANSTHORACIC ECHO (TTE) Procedure CPT: 84748 Addtional CPT: Ht (in): 67 BSA: 3.14 [...] Mass by linear method Index 101 g/m2 [facility] TRANSTHORACIC ECHO (TTE)2021-05-21 10:14:00TRANSTHORACIC ECHO (TTE) Transthoracic Echo Report GRAZYNA GOMEZ Age: 46 Gender:F : 1975 Exam Date: 05/21/2021 06:37 ExamLocation: [facility] Ordering Phys: PUNEET LOPEZ Referring Phys: Reading Phys: Mee Vincetn MD Fellow Phys: Fellow Phys: Professor Of Nursing: Taina Rene Reason For Exam: Indications: new afib, Other specified conduction disorders ICD-9 Codes: I45.89 Exam Type: TRANSTHORACIC ECHO (TTE) Procedure CPT: 06246 Addtional CPT: Ht (in): 67 BSA: 3.14 [...] Mass by linear method Index 101 g/m2 [employer] Hemoglobin [id number] 08:01:00 Test Item Value Reference Range Interpretation Comments Hemoglobin A1c (test code = 4548-4) 5.9 % 4.3-6.1 Estimated Average Glucose (test 123 mg/dL 70-110 H code = [id number]) Lab Interpretation (test code = Abnormal 69117-5) [id number]:00 Test Item Value Reference Range Interpretation Comments Cholesterol (test 69.0 mg/dL See_Comment [Automate d message] code = 2093-3) The system [employer] generated this result transmit sandy reference range : <=200.0. The reference range was not used to interpret this result as normal/abnormal . Triglyceride (test 70 mg/dL <150 code = 92025146) HDL (test code = 18.0 mg/dL See Reference 2085-9) Range Narrative. LDL (test code = 37 mg/dL <100 Optimal: < 100.0 45992-3) mg/dLNear Optim al: 120-129 mg/dLBorderline : 130-159 mg/dLHi gh: 160-189 mg/dLVe ry High: >=190 mg/ dL Patient Fasting? Yes (test code = 49429027) Param Theodore, CoVID-19, [id number] 23:30:00 Test Item Value Reference Range Interpretation Comments COVID-19 Not Detected Not Detected INTERPRETATION: (SARS-COV-2) (test No detect able code = 96805-2) levels of SARS-CoV-2 Coronavirus (COVID-19) were present [...] MARIO (test code = COMMENT: This MARIO) [facility] SARS-CoV-2 molecular diagnostic assay utilizes Fur Mixer Mediated Amplification (TMA) technology to rapidly detect the SARS-CoV-2 (COVID-19) virus from respiratory samples. In accordance with the FDA's guidance document "Policy for Diagnostic Tests for Coronavirus Disease-2019 during the Public Health Emergency", this test was developed, and its performance characteristics were verified by the [facility] molecular diagnostics laboratory and is authorized for clinical diagnostic use. This laboratory is certified under the Clinical Laboratory Improvement Amendments (CLIA) as qualified to perform high complexity clinical laboratory testing. Lab Interpretation Normal (test code = 08161-8) Param Theodore, CoVID-19, [id number] 23:30:00 Test Item Value Reference Range Interpretation Comments COVID-19 Not Detected Not Detected INTERPRETATION: (SARS-COV-2) (test No detect able code = 16226-6) levels of SARS-CoV-2 Coronavirus (COVID-19) were present [...] MARIO (test code = COMMENT: This MARIO) [facility] SARS-CoV-2 molecular diagnostic assay utilizes Fur Mixer Mediated Amplification (TMA) technology to rapidly detect the SARS-CoV-2 (COVID-19) virus from respiratory samples. In accordance with the FDA's guidance document "Policy for Diagnostic Tests for Coronavirus Disease-2019 during the Public Health Emergency", this test was developed, and its performance characteristics were verified by the [facility] molecular diagnostics laboratory and is authorized for clinical diagnostic use. This laboratory is certified under the Clinical Laboratory Improvement Amendments (CLIA) as qualified to perform high complexity clinical laboratory testing. Lab Interpretation Normal (test code = 26043-3) [facility] [id number] 17:27:00 Test Item Value Reference Range Interpretation Comments Free T4 (test code = 40816442) 1.04 ng/dl 0.64-1.42 Lab Interpretation (test code = Normal 66535-7) [facility] HospitalJyfzimTGS2215-86-49 17:25:00 Test Item Value Reference Range Interpretation Comments TSH (test code = 5.13 See_Comment If , please 79594144) see the followi ng reference range s [...] . Lab Interpretation (test Normal code = 27315-0) [facility] HospitalBeta-hCG, Nflipdftcvhy1775-26-40 17:14:00 Test Item Value Reference Range Interpretation Comments hCG, Quantitative (test <1.0 See_Comment [Au tomated message] code = 07915471) The system which generated this result transmitted ref erence range: <5.0 mIU /mL. The reference r will was not used to interpret this result as normal/abnor mal. Lab Interpretation (test Normal code = 25782-8) [facility] HospitalB-Type Natriuretic Peptide (BNP)2021-05-20 17:12:00 Test Item Value Reference Range Interpretation Comments B Natriuretic Peptide 173 pg/mL See_Comment H [Auto mated message] (BNP) (test code = The syste m which 95863918) generated this result transmit sandy reference range : <=100. The refe rence range was not u sed to interpret th is result as normal/abnormal . Lab Interpretation (test Abnormal code = 61756-3) [facility] HospitalTroponin [id number] 17:11:00 Test Item Value Reference Interpretation Comments Range Troponin I (test <0.03 See_Comment [Automated code = 32961510) message] Th e system which generated this [...] patient, acute events such as myocardial infarction (ID) may be distinguished from other conditions causing [...] values. Lab Interpretation Normal (test code = 07712-2) [facility] HospitalXRAY CHEST 1 [id number] 16:25:32IMPRESSION: Evidence of pulmonary vascular congestion. Mild to moderate left pleuraleffusion noted. T hese appear more prominent since prior study. Signed By: Francis Thompson MD, 05/20/2021 4:25 PM Interface,Jose/Lisa In - 05/20/2021 5:27 PM CDT EXAM: [...] study.Signed By: Francis Thompson MD, 05/20/2021 4:25 [facility] Wdvock04 LEAD [id number] 15:54:3812 LEAD EKG FOR [facility] Test Date: [id number] Name: GRAZYNA GOMEZ Department: 5520Patient ID: [id number] Room: BT POD D 09Gender: F Terrazzo Layer Helper: [id number]: 1975 Requested By: NATHALIE Carrillo Number: [id number] Colten MD: nathan albert MeasurementsIntervals Philipp Rate: 116 P: NV: 0 QRS: 26QRSD: 106 T: -6QT: 325 QTc: 394 Interpretive StatementsATRIAL FLU TTER/TACHYCARDIA WITH RAPID VENTRICULAR RESPONSELOW QRS VOLTAGE IN PRECORDIAL LEADS [QRS DEFLECTION< 1.0 mV IN CHEST LEADS]ABNORMAL RHYTHM ECGElectronically Signed On 05-20-2021 20:27:02 CDT by [facility] 12 LEAD [id number] 15:54:3812 LEAD EKG FOR [facility] Test Date: [id number] Name: GRAZYNA GOMEZ Department: 5520Patient ID: [id number] Room: BT POD D 09Gender: F Terrazzo Layer Helper: [id number]: 1975 Requested By: NATHALIE Carrillo Number: [id number] Reading MD: nathan albert MeasurementsIntervals Philipp Rate: 116 P: NV: 0 QRS: 26QRSD: 106 T: -6QT: 325 QTc: 394 Interpretive StatementsATRIAL FLUTTER/TACHYCARDIA WITH RAPID VENTRICULAR RESPONSELOW QRS VOLTAGE IN PRECORDIAL LEADS [QRS DEFLECTION < 1.0 mV IN CHEST LEADS]ABNORMAL RHYTHM ECGElectronically Signed On 05-20-2021 20:27:02 [facility] POC docked device 2021-05-20 15:42:00 Test Item Value Reference Range Interpretation Comments Troponin POC (test 0.01 ng/mL 0-0.08 Physician code = 28616077) Notified MARIO (test code = MARIO) <0.08 ng/mL Normal>=0.08 ng/mL Positive for Myocardial injuryNote: The >=0.08 ng/mL cTnI is at the 99th percentile of the non-AMI population. Lab Interpretation Normal (test code = 85161-2) [facility] TROPONIN I POC docked [id number] 15:42:00 Test Item Value Reference Range Interpretation Comments Troponin POC (test 0.01 ng/mL 0.00-0.08 Physician code = 46988048) Notified MARIO (test code = MARIO) <0.08 ng/mL Normal>=0.08 ng/mL Positive for Myocardial injuryNote: The >=0.08 ng/mL cTnI is at the 99th percentile of the non-AMI population. Lab Interpretation Normal (test code = 86423-1) [facility] BMP POC docked [id number] 15:36:00 Test Item Value Reference Range Interpretation Comments Sodium POC (test code = 142 mmol/L 136-145 86878107) Potassium POC (test code 3.9 mmol/L 3.5-5.1 = 71259350) Chloride POC (test code 97 mmol/L 98-107 L = 35283647) TCO2 POC (test code = 34 mmol/L 21-32 H Physic preeti Notified 64046583) Urea Nitrogen POC (test 9 mg/dL 7-18 code = 98187346) Glucose POC (test code = 157 mg/dL 74-106 H 26738306) Hemoglobin POC (test 14.3 g/dL 12-16 code = 41437873) Hematocrit POC (test 42.0 % 37-47 code = 78952666) Lab Interpretation (test Abnormal code = 16867-2) [facility] BMP POC docked [id number] 15:36:00 Test Item Value Reference Range Interpretation Comments Sodium POC (test code = 142 mmol/L 136-145 76682769) Potassium POC (test code 3.9 mmol/L 3.5-5.1 = 14490026) Chloride POC (test code 97 mmol/L 98-107 L = 30251004) TCO2 POC (test code = 34 mmol/L 21-32 H Physic preeti Notified 11881356) Urea Nitrogen POC (test 9 mg/dL 7-18 code = 92272499) Glucose POC (test code = 157 mg/dL 74-106 H 71870426) Hemoglobin POC (test 14.3 g/dL 16 code = 15329833) Hematocrit POC (test 42.0 % 37.0-47.0 code = 49551429) Lab Interpretation (test Abnormal code = 89593-3) [facility] CREATININE POC docked [id number] 15:35:00 Test Item Value Reference Range Interpretation Comments Creatinine POC (test 0.6 mg/dL 0.6-1.3 Physici an Notified code = 33749199) eGFR If non- Am >90 See_Comment [Aut omated message] (test code = 26375891) The s ystem which generated this result transmit sandy reference range : >=90 mL/min/1.7 3 m2. The reference r will was not used to interpret this result as normal/abnormal . eGFR If Am (test >90 See_Comment [A utomated message] code = 38776305) The system which generated this result transmit sandy reference range : >=90 mL/min/1.7 3 m2. The reference r will was not used to interpret this result as normal/abnormal . Lab Interpretation (test Normal code = 80202-4) [facility] VBG POC docked [id number] 15:35:00 Test Item Value Reference Range Interpretation Comments pH, Ace POC (test code 7.40 7.33-7.43 = 48313484) pCO2,Ace POC (test code 53.3 See_Comment H [Au tomated = 60542339) message] The sy stem which generated this result transmitted reference range : 38 - 50 mmHg. The reference range was not used to interpret this result as normal/abnormal . PO2, Venous POC (BKR) 49 See_Comment L [Auto mated (test code = 93662990) messa ge] The system which generated this result transmitted reference range : 50 - 75 mm Hg. The reference range was not used to interpret this result as normal/abnormal . Ionized Calcium POC 1.15 mmol/L 1.15-1.29 (test code = 83704808) HCO3, Ace POC (test 33 mmol/L 22-26 H code = 18805113) TCO2 POC (test code = 34 mmol/L 21-32 H 73813912) Base Excess Ace POC 6 mmol/L (test code = 67472710) Sample Type (test code LUCERO Physi hermes Notified = 82801975) % Sat, Ace POC (test 83 % code = 04243999) Lab Interpretation Abnormal (test code = 15115-4) [facility] CREATININE POC docked [id number] 15:35:00 Test Item Value Reference Range Interpretation Comments Creatinine POC (test 0.6 mg/dL 0.6-1.3 Physici an Notified code = 47517381) eGFR If non- Am >90 See_Comment [Aut omated message] (test code = 01329687) The s ystem which generated this result transmit sandy reference range : >=90 mL/min/1.7 3 m2. The reference r will was not used to interpret this result as normal/abnormal . eGFR If Am (test >90 See_Comment [A utomated message] code = 10040067) The system which generated this result transmit sandy reference range : >=90 mL/min/1.7 3 m2. The reference r will was not used to interpret this result as normal/abnormal . Lab Interpretation (test Normal code = 30347-4) [facility] VBG POC docked [id number] 15:35:00 Test Item Value Reference Range Interpretation Comments pH, Ace POC (test code 7.40 7.33-7.43 = 11002531) pCO2,Ace POC (test code 53.3 See_Comment H [Au tomated = 37010134) message] The sy stem which generated this result transmitted reference range : 38 - 50 mmHg. The reference range was not used to interpret this result as normal/abnormal . PO2, Venous POC (BKR) 49 See_Comment L [Auto mated (test code = 06563776) messa ge] The system which generated this result transmitted reference range : 50 - 75 mm Hg. The reference range was not used to interpret this result as normal/abnormal . Ionized Calcium POC 1.15 mmol/L 1.15-1.29 (test code = 80165189) HCO3, Ace POC (test 33 mmol/L 22-26 H code = 85223841) TCO2 POC (test code = 34 mmol/L 21-32 H 69742374) Base Excess Ace POC 6 mmol/L (test code = 55393609) Sample Type (test code IVEN Physi hermes Notified = 60076462) % Sat, Ace POC (test 83 % code = 33196926) Lab Interpretation Abnormal (test code = 19807-9) [place] [address] LEAD [id number] 15:23:0612 LEAD EKG FOR [facility] Test Date: [id number] Name: GRAZYNA FALMOUTH Department: 5520Patient ID: [id number] Room: Gender: F Terrazzo Layer Helper: [id number]: 1975 Requested By: NATHALIE Carrillo Number: [id number] Reading MD: nathan albert MeasurementsIntervals Philipp Rate: 191 P: NV: 0 QRS: 30QRSD: 97 T: 0QT: 196 QTc: 294 Interpretive StatementsATRIAL FIBRILLATION WI TH RAPID VENTRICULAR RESPONSELOW QRS VOLTAGE IN PRECORDIAL LEADS [QRS DEFLECTION < 1.0 mV IN CHEST LEADS]MODERATE ST DEPRESSION [0.05+ mV ST DEPRESSION]CRITICAL TEST RESULTElectronically Signed On 05-20-2021 15:43:36 CDT by nathan Stone Swwjkn47 LEAD [id number] 15:23:0612 LEAD EKG FOR [facility] Test Date: [id number] Name: GRAZYNA FALMOUTH Department: 5520Patient ID: [id number] Room: Gender: F Terrazzo Layer Helper: [id number]: 1975 Requested By: NATHALIE Torresrodo Number: [id number] Reading MD: nathan albert MeasurementsIntervals Philipp Rate: 191 P: NV: 0 QRS: 30QRSD: 97 T: 0QT: 196 QTc: 294 Interpretive StatementsATRIAL FIBRILLATION WITH RAPID VENTRICULAR RESPONSELOW QRS VOLTAGE IN PRECORDIAL LEADS [QRS DEFLECTION < 1.0 mV IN CHEST LEADS]MODERATE ST DEPRESSION [0.05+ mV ST DEPRESSION]CRITICAL TEST RESULTElectronically Signed On 05-20-2021 15:43:36 CDT by nathan [facility]ouseLewis [facility] HospitalAlex[facility]Columb[facility] GLU[facility]SE POC docked dtewsm9410-40-55 13:06:00 Test Item Value Reference Range Interpretation Comments Glucose POC (test code = 41651912) 105 mg/dL 74-106 Lab Interpretation (test code = Normal 23555-5) [facility] GLUCOSE POC docked kckjsa4516-44-76 13:06:00 Test Item Value Reference Range Interpretation Comments Glucose POC (test code = 76519487) 105 mg/dL 74-106 Lab Interpretation (test code = Normal 51346-7) [facility] HospitalPqarkzFpvctkayfa0836-00-87 05:55:00 Test Item Value Reference Range Interpretation Comments Phosphorus (test code = 2777-1) 3.3 mg/dL 2.5-5 Lab Interpretation (test code = Normal 58205-1) [facility] HospitalDifferential, Wpoilt2728-90-26 10:07:00 Test Item Value Reference Range Interpretation Comments Neutrophil (test code = 15152209) 80.0 % 34-70 H Lymphs (test code = 23741462) 14.0 % 20-50 L Monocytes (test code = 72704057) 6.0 % 5-12 Eos (test code = 05534609) 0.0 % 0.7-5 L Basos (test code = 26512208) 0.0 % 0.1-1.2 L Neutrophils (Absolute) (test code = 7.03 K/uL 1.56-6.13 H 00476875) Lymphs (Absolute) (test code = 1.23 K/uL 1.18-3.74 31021055) Monocytes(Absolute) (test code = 0.53 K/uL 0.24-0.36 H 91685980) Eos (Absolute) (test code = 0.00 K/uL 0.04-0.36 L 52769456) Baso (Absolute) (test code = 0.00 K/uL 0.01-0.08 L 19384329) Large Platelets (test code = 2+ None seen A 81602942) Platelet Clumps (test code = Present None seen A 43587341) Hypochromia (test code = 89151481) 3+ None seen A Ovalocyte (test code = 54796733) 2+ None seen A Stomatocyte (test code = 82796598) 2+ None seen A Cells Counted (test code = 93214253) Lab Interpretation (test code = Abnormal 25148-7) [facility] Stvox7081-15-23 06:36:00 Test Item Value Reference Range Interpretation Comments Sodium (test code = 141 mmol/L 555-559 0780-2) Potassium (test code = 3.8 mmol/L 3.5-5.1 2823-3) Chloride (test code = 98 mmol/L 98-107 2075-0) CO2 (test code = 38 mmol/L 21-31 H 40874434) Glucose (test code = 113 mg/dL 70-110 H 01809631) Calcium (test code = 8.2 mg/dL 8.6-10.3 L 97476852) Urea Nitrogen (test 9.0 mg/dL 7-25 code = 05444826) Creatinine (test code = 0.6 mg/dL 0.6-1.2 06293716) Alkaline Phosphatase 38 U/L 34-104 (test code = 35723838) ALT (test code = 11 U/L 7-52 67975600) AST (test code = 12 U/L 13-39 L 02507164) Total Protein (test 6.8 g/dL 6-8.3 code = 2885-2) eGFR If non- Am >90 See_Comment [Aut omated message] (test code = 10219275) The s ystem which generated this result transmit sandy reference range : >=90 mL/min/1.7 3 m2. The reference r will was not used to interpret this result as normal/abnormal . Albumin (test code = 3.1 g/dL 3.7-5.3 L 76365-4) Anion Gap (test code = 5 mmol/L 5-16 82200356) Lab Interpretation Abnormal (test code = 13061-6) [facility] HospitalBlood Gas, Ptojps3980-99-63 04:33:00 Test Item Value Reference Range Interpretation Comments Temperature (test code 37.0 degree C = 25250052) pH, Venous (test code = 7.36 7.33-7.43 10080278) pCO2, Venous (test code 71.3 See_Comment HH [Au tomated = 24381678) message] The sy stem which generated this result transmitted reference range : 38 - 50 mm Hg. The reference range was not used to interpret this result as normal/abnormal . pO2, Venous (test code 54.8 See_Comment [Aut omated = 73527072) message] The sy stem which generated this result transmitted reference range : 50 - 75 mm Hg. The reference range was not used to interpret this result as normal/abnormal . Base Excess, Venous 13.2 mmol/L -2.5-2.5 H (test code = 79071621) HCO3, Venous (test code 39.2 mmol/L 22-26 H = 80780434) % Sat, Venous (test 86.6 % 60-85 H code = 45024207) Lab Interpretation Abnormal (test code = 24282-2) [facility] HospitalHgb/Wxb5739-76-75 22:29:00 Test Item Value Reference Range Interpretation Comments Hemoglobin (test code = 718-7) 7.5 g/dL 12-16 L Hematocrit (test code = 4544-3) 32.0 % 37-47 L Lab Interpretation (test code = Abnormal 28787-2) [facility] RBC Units, 1 Tgjsp3112-93-43 12:35:00 Test Item Value Reference Range Interpretation Comments RBC UNITS (test code = compatible 77165959) Unit ABO Type (test code = O 85714681) Unit Rh Type (test code = POS 65656823) Product Code (test code = E0336 93413948) Unit Number (test code = [id number] 94254601) Unit Status (test code = transfused 73356168) ISBT Product Code (test code = L7294X34 43079) Blood Type (test code = 47302) 5100 Blood Expiration Date (test code = 39099) [facility] HospitalCrossmatch RBC Units, 1 Ftplu4348-59-87 12:35:00 Test Item Value Reference Range Interpretation Comments RBC UNITS (test code = compatible 18362279) Unit ABO Type (test code = O 80135003) Unit Rh Type (test code = POS 47605035) Product Code (test code = E0336 94072869) Unit Number (test code = [id number] 27353332) Unit Status (test code = transfused 59496417) ISBT Product Code (test code = L1935Z56 26499) Blood Type (test code = 40489) 5100 Blood Expiration Date (test code = 73687) [facility] HospitalVitamin [id number] 08:32:00 Test Item Value Reference Range Interpretation Comments Vitamin B12 (test code 351 pg/mL See comment Lucila l: 180-914 = 61863986) pg/mLIntermitte nt: 145-180 pg/mLDeficient: <=145.0 pg/mL [facility] HospitalLegionella Antigen, Bgbcb0832-69-11 08:20:00 Test Item Value Reference Range Interpretation Comments Legionella Ag, Ur (test code = Negative Negative 20527-4) Lab Interpretation (test code = Normal 04360-0) [facility] HospitalStrep Pneumo Ag, Awzae3826-64-26 01:40:00 Test Item Value Reference Range Interpretation Comments S. pneumo Ur Antigen (test code = Negative Negative 18603-2) Lab Interpretation (test code = Normal 13062-6) [facility] HospitalTRANSTH[facility]AC[facility] (TTE)2021-02-13 13:02:00TRANSTHORACIC ECHO (TTE) Transthoracic Echo Report GRAZYNA GOMEZ Age: 45 Gender:F : 1975 Exam Date: 02/13/2021 08:08 ExamLocation: [facility] Ordering Phys: MARBELLA ALLAN Referring Phys: [id number] Reading Phys: Mee Vincent MD Fellow Phys: Fellow Phys: Professor Of Nursing:Isma Nunez Reason For Exam: Indications: Obstructive sleep apnea, rule out pulmonary hypertension, Other secondary pulmonary hypertension, Morbid (severe) obesity due to excess calories ICD-9 Codes: I27.2 E66.01 Exam Type: TRANSTHORACIC ECHO (TTE) Procedure CPT: 51956 Addtional CPT: Ht (in): 67 BSA: 3.38 [...] Mass by linear method Index 102 g/m2 [facility]21-[facility]-13 13:02:00TRANSTHORACIC ECHO (TTE) Transthoracic Echo Report GRAZYNA GOMEZ Age: 45 Gender:F : 1975 Exam Date: 02/13/2021 08:08 ExamLocation: [facility] Ordering Phys: MARBELLA ALLAN Referring Phys: [id number] Reading Phys: Mee Vincent MD Fellow Phys: Fellow Phys: Professor Of Nursing:Isma Nunez Reason For Exam: Indications: Obstructive sleep apnea, rule out pulmonary hypertension, Other secondary pulmonary hypertension, Morbid (severe) obesity due to excess calories ICD-9 Codes: I27.2 E66.01 Exam Type: TRANSTHORACIC ECHO (TTE) Procedure CPT: 71017 Addtional CPT: Ht (in): 67 BSA: 3.38 [...] Mass by linear method Index 102 g/m2 [facility] HospitalT&S Fdgasscpmt1150-67-54 06:58:00 Test Item Value Reference Range Interpretation Comments Specimen Expiration (test 02/16/2021 23:59 code = 86453955) ABO/RH (test code = O POS 77891387) Antibody Screen (test code = NEG 12556185) [facility] HospitalABO/RH RSOIAMAOQHZM4914-06-07 06:57:00 Test Item Value Reference Range Interpretation Comments ABO/RH (test code = 19112926) O POS [facility] Lhgikub9940-70-03 03:07:00 Test Item Value Reference Range Interpretation [...] MARIO (test code = MARIO) Performed at: [address] [place] [address] [id number] Director: Denis Lugo MD, Phone: [phone] Lab Interpretation Abnormal (test code = 52242-3) [facility] HospitalTjsoosTxvtzldt9770-78-89 05:33:00 Test Item Value Reference Range Interpretation Comments Ferritin (test code = 53940466) <10.0 11-306.8 L Lab Interpretation (test code = Abnormal 71178-6) [facility]Hepatitis [facility] Virus Ab GnV3843-10-80 05:27:00 Test Item Value Reference Range Interpretation Comments Hepatitis C Virus (HCV) Antibody Negative Negative (test code = 93248-9) Lab Interpretation (test code = Normal 88247-3) [facility]gen [facility]HIV-[facility]/HIV-2 Routine Qvpqlqlra5144-05-93 05:26:00 Test Item Value Reference Range Interpretation Comments HIV Ag/Ab Combo (test code = Negative Negative 87695-4) Lab Interpretation (test code = Normal 97632-5) [facility] HospitalU/S ABDOMEN SQKMHYX4155-10-92 19:55:26IMPRESSION:Limited evaluation due to bowel gas and [...] report.Signed By: Francis Thompson MD, 02/11/2021 7:55 PMSkyline HospitalYzlllgKvartw9399-46-66 18:55:00 Test Item Value Reference Range Interpretation Comments Lipase (test code = 22473545) 24 U/L 11-82 Lab Interpretation (test code = Normal 69423-2) [facility] HospitalLiver Kpuiajv9529-57-38 18:55:00 Test Item Value Reference Range Interpretation Comments Bilirubin, Total (test code = 1.5 mg/dL 0.2-1.2 H 2885-2) Alkaline Phosphatase (test code = 44 U/L 34-104 06502549) AST (test code = 75315288) 13 U/L 13-39 Direct Bilirubin (test code = 0.6 mg/dL 0-0.2 H 1968-7) ALT (test code = 23939494) 9 U/L 7-52 Albumin (test code = 60872-5) 3.3 g/dL 3.7-5.3 L Lab Interpretation (test code = Abnormal 26299-0) [facility] HospitalXR CHEST 2 TNKSK6938-91-32 18:34:30IMPRESSION: Limited exam. Opacified left lung base [...] report.Signed By: Francis Thompson MD, 02/11/2021 6:34 PMSkyline Hospital12 LEAD SOR7080-87-91 17:19:2512 LEAD EKG FOR [facility] Test Date: [id number] Name: GRAZYNA DILLONALES Department: 5520Patient ID: [id number] Room: Gender: F Terrazzo Layer Helper: [id number]: 1975 Requested By: MATY Lira Number: [id number] Reading MD: Mee Vincent MeasurementsIntervals Philipp Rate: 78 P: -15PR: 107 QRS: 38QRSD: 109 T: 68QT: 364 QTc: 417 Interpretive StatementsSINUS RHYTHM WITH SHORT NV INTERVALLOW QRS VOLTAGE IN PRECORDIAL LEADS [QRS DEFLECTION < 1.0 mV IN CHEST LEADS]NONSPECIFIC T-WAVE ABNORMALITYElectronically Signed On 02-11-2021 19:11:55 [address] [facility]12 [facility]AD JMH5682-74-23 17:19:2512 LEAD EKG FOR [facility] Test Date: [id number] Name: GRAZYNA GOMEZ Department: 5520Patient ID: [id number] Room: Gender: F Terrazzo Layer Helper: [id number]: 1975 Requested By: MATY Lira Number: [id number] Reading MD: Mee Vincent MeasurementsIntervals Philipp Rate: 78 P: -15PR: 107 QRS: 38QRSD: 109 T: 68QT: 364 QTc: 417 Interpretive StatementsSINUS RHYTHM WITH SHORT NV INTERVALLOW QRS VOLTAGE IN PRECORDIAL LEADS [QRS DEFLECTION < 1.0 mV IN CHEST LEADS]NONSPECIFIC T-WAVE ABNORMALITYElectronically Signed On 02-11-2021 19:11:55 CDT by MeeFormerly [facility] HospitalDigital Tech FrontierPeaceHealth St[facility]
[2022-03-10] MEDS ORDERED: FENTANYL CITR 100 MCG/2 ML ONE (17:43)
[2022-03-10] MEDS ORDERED: MAGNESIUM SULFATE 1 gm IVPB 1 GM/100 ML BAG IV ONE (17:44)
[2022-03-10] MEDS ORDERED: METOPROLOL TARTRATE 5 MG/5 ML INJ IV ONE ×2 (17:46→23:47)
[2022-03-10] MEDS ORDERED: DIGOXIN 0.25 MG/ML AMP ONE (17:46)
[2022-03-10] MEDS ORDERED: RSI MEDICATION KIT IV ONE (17:48)
[2022-03-10] MEDS ORDERED: propofoL 1,000 MG/100 ML VIAL IV ONE (18:11)
[2022-03-10 18:30] LABS: Absolute Lymphocytes (CBC) 1.2 K/uL (0.7-4.9); Hematocrit 38.3 % (36.0-45.0); Lymphocytes % 20.9 % (15.3-44.8); MPV 8.7 fL (7.6-11.3); RBC Red Blood Cell Count 4.91 M/uL (3.86-4.86)
[2022-03-10 18:32] LABS: Protime INR 1.4
[2022-03-10 18:48] LABS: Albumin 3.2 g/dL (3.4-5.0); Bilirubin Direct 0.4 mg/dL (0-0.2); Bilirubin Total 1.2 mg/dL (0.2-1.0); Potassium 4.1 mmol/L (3.5-5.1); Protein, Total 9.2 g/dL (6.4-8.2)
[2022-03-10 18:49] LABS: Magnesium 2.2 mg/dL (1.8-2.4)
[2022-03-10 18:53] LABS: Troponin High Sensitivity 86.9 pg/mL (<58.9)
--- NOTE | 2022-03-10 19:13 | RAD REPORT ---
EXAM DESCRIPTION: RAD - Chest Single View - 03/10/2022 6:59 pm CLINICAL HISTORY: CHEST PAIN COMPARISON: Chest Single View dated 11/30/2021; Chest Single View dated 09/16/2021; Chest Single View dated 09/03/2021; Chest Single View dated 08/01/2021 FINDINGS: Lines: Endotracheal tube difficult to confirm with certainty. The likely terminates at the aortic arch . Lungs: Severe widespread pulmonary opacities. Pleural: Difficult to exclude small effusions. Cardiac: Cardiomegaly. Bones: No acute fractures. Other: IMPRESSION: The endotracheal tube is difficult to visualize due to underpenetration. Suspect tip at the aortic arch. Enteric tube noted. Severe bilateral airspace disease probably representing pulmonary edema.
[2022-03-10] MEDS ORDERED: FUROSEMIDE 40 MG/4 ML VIAL ONE (19:30)
[2022-03-10] MEDS ORDERED: ENOXAPARIN 100 MG/ML SYR SQ ONE (19:30)
[2022-03-10] MEDS ORDERED: ENOXAPARIN 30 MG/0.3 ML SQ ONE (19:31)
[2022-03-10 20:16] LABS: Arterial Blood Carboxyhemoglob 1.8 % (0-1.5); Blood Gas Oxyhemoglobin 97.1 % (94-97); Blood O2 Saturation 99.9 % (92-98.5)
--- NOTE | 2022-03-10 20:48 | EDPHYS ---
Physician Documentation [facility] Name: Charity Jacob Age: 46 yrs Sex: Female : 1975 Arrival Date: 03/10/2022 Time: 17:36 Bed 4 Private MD: ED Physician Aman Kay HPI: 03/10 18:31 This 46 yrs old Female presents to ER via EMS with complaints of Respiratory jr8 Distress. 18:31 The patient has shortness of breath at rest. Onset: The symptoms/episode began/occurred jr8 acutely. Duration: The symptoms are continuous, and are markedly worse than the original presentation. The patient's shortness of breath is aggravated by supine position. Associated signs and symptoms: Pertinent positives: chest pain. Severity of symptoms: At their worst the symptoms were severe. It is unknown whether or not the patient has had similar symptoms in the past. It is unknown whether or not the patient has recently seen a physician. Patient came in via EMS in severe respiratory distress with HR in the 200s. History of Atrial fib with CHF. Acute onset. Family called EMS. Patient on CPAP upon arrival . 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 - Social history:: Smoking status: unknown. ROS: 18:31 Eyes: Negative for injury, pain, redness, and discharge, ENT: Negative for injury, jr8 pain, and discharge, Neck: Negative for injury, pain, and swelling, Abdomen/GI: Negative for abdominal pain, nausea, vomiting, diarrhea, and constipation, Back: Negative for injury and pain, MS/Extremity: Negative for injury and deformity, Skin: Negative for injury, rash, and discoloration, Neuro: Negative for headache, weakness, numbness, tingling, and seizure. 18:31 Cardiovascular: Positive for chest pain, edema, orthopnea. 18:31 Respiratory: Positive for shortness of breath. Exam: 18:31 Abdomen/GI: Soft, non-tender, with normal bowel sounds. No distension or tympany. No jr8 guarding or rebound. No evidence of tenderness throughout. Skin: Warm, dry with normal turgor. Normal color with no rashes, no lesions, and no evidence of cellulitis. MS/ Extremity: Pulses equal, no cyanosis. Neurovascular intact. Full, normal range of motion. Neuro: Awake and alert, GCS 15, oriented to person, place, time, and situation. Motor strength 5/5 in all extremities. Sensory grossly intact. 18:31 Constitutional: The patient appears alert, awake, obviously ill. 18:31 Cardiovascular: Rate: tachycardic, actual rate is 200 bpm, Rhythm: irregularly irregular, Pulses: Pulses are 1+ in right radial artery and left radial artery. Edema: 3+ edema to level of left midcalf, left ankle, left foot, left toes, right midcalf, right ankle, right foot and right toes. 18:31 Respiratory: severe repiratory distress is noted, Respirations: labored breathing, tachypnea. 18:31 ECG was reviewed by the Attending Physician. jr8 Vital Signs: 18:00 Weight 215.46 kg (R); jd3 18:05 BP 133 / 88; Pulse 92; Resp 20 A; Pulse Ox 99% on ETT vent; iw 18:25 BP 114 / 51; Pulse 83; Resp 16 A; Pulse Ox 98% on ETT vent; jd3 18:33 BP 84 / 48; Pulse 83; Resp 16 S; Pulse Ox 98% on ETT vent; jd3 18:45 BP 90 / 59; Pulse 103; Resp 21 A; Pulse Ox 99% on ETT vent; jd3 19:02 BP 103 / 56; Pulse 94; Resp 16 A; Pulse Ox 99% on 100% FiO2 ETT vent; jd3 19:35 BP 97 / 45; Pulse 96; Resp 13 A; Pulse Ox 98% on 70% FiO2 ETT vent; as6 20:16 BP 98 / 48; Pulse 82; Resp 18 A; Pulse Ox 100% on 70% FiO2 ETT vent; as6 20:17 Temp 97.6(TE); mw2 21:00 BP 110 / 73; Pulse 86; Resp 18 A; Pulse Ox 100% on 70% FiO2 ETT vent; as6 22:21 BP 106 / 66; Pulse 83; Resp 18 A; Pulse Ox 98% on 70% FiO2 ETT vent; as6 23:00 BP 104 / 65; Pulse 73; Resp 18 A; Pulse Ox 100% on 70% FiO2 ETT vent; as6 23:48 BP 115 / 74; Pulse 88; Resp 18 A; Pulse Ox 100% on 70% FiO2 ETT vent; as6 Simba Coma Score: 19:35 Eye Response: spontaneous(4). Verbal Response: oriented(5). Motor Response: obeys as6 commands(6). Total: 15. Procedures: 18:31 Intubation: Intubated orally using Glyde Scope Mac 4 with 7.5 mm ETT. was successful on jr8 first attempt. Ventilated with Ambu bag. Tube secured with ETT ramirez measured 25 cm at lip. Placement verified by CXR, CO2 detector with (+) color change, auscultating bilateral breath sounds, O2 saturation after procedure was 100 %. Patient tolerated well. Cardioversion: (synchronized) for treatment of A fib, SVT, with 150 joules X 1. Post procedure rhythm is A fib, the patient tolerated the procedure well. Peripheral line: by aseptic technique a peripheral line was placed in the right antecubital vein. MDM: 17:36 Patient medically screened. rn 20:46 Data reviewed: vital signs, nurses notes, lab test result(s), EKG, radiologic studies, jr8 plain films. Data interpreted: Pulse oximetry: on ventilator is 100 %. Interpretation: normal. Counseling: I had a detailed discussion with the patient and/or guardian regarding: the historical points, exam findings, and any diagnostic results supporting the discharge/admit diagnosis, lab results, radiology results, the need to transfer to another facility, [facility] does not immediately have the required specialist. ED course: Spoke with [facility] venue coordinator who accepted transfer . 23:23 ED course: EMS requested that we sedate and paralyze patient for transport. Explained don to them that she will not tolerate propofol and there is no indication to paralyze at this time. Can sedate her with ketamine and Ativan but that she has been awake and without any discomfort since her original induction agents without any problem. It is at there discretion if something changes in route and they choose to use any other means for her safety but at this time does not require heavy sedation or paralysis . 03/10 17:55 Order name: Glucose, Ancillary Testing; Complete Time: 17:57 EDMS 03/10 17:56 Order name: Basic Metabolic Panel; Complete Time: 18:56 jr8 25 17:56 Order name: CBC with Diff; Complete Time: 18:56 03/10 17:56 Order name: LFT's; Complete Time: 18:56 03/10 17:56 Order name: Magnesium; Complete Time: 18:56 03/10 17:56 Order name: NT PRO-BNP; Complete Time: 18:56 03/10 17:56 Order name: PT-INR; Complete Time: 18:36 03/10 17:56 Order name: Troponin HS; Complete Time: 18:56 03/10 17:56 Order name: XRAY Chest (1 view); Complete Time: 20:01 03/10 17:56 Order name: Blood Culture Adult (2) 03/10 17:56 Order name: Lactate; Complete Time: 18:56 03/10 17:58 Order name: ABG; Complete Time: 20:30 03/10 18:06 Order name: SARS-COV-2 RT PCR (Document "Date of Onset" if Symptomatic); Complete Time: 21:19 03/10 21:34 Order name: Lactate Sepsis 2 HR Follow-up; Complete Time: 21:36 [facility] 03/10 17:56 Order name: EKG; Complete Time: 17:57 03/10 17:56 Order name: Cardiac monitoring; Complete Time: 18:28 03/10 17:56 Order name: EKG - Nurse/Tech; Complete Time: 18:28 03/10 17:56 Order name: IV Saline Lock; Complete Time: 18:28 03/10 17:56 Order name: Labs collected and sent; Complete Time: 18:28 03/10 17:56 Order name: O2 Per Protocol; Complete Time: 18:28 03/10 17:56 Order name: O2 Sat Monitoring; Complete Time: 18:28 03/10 17:57 Order name: NG Tube; Complete Time: 18:22 EC:31 Rate is 86 beats/min. Rhythm is irregularly irregular, A fib. QRS [place] is Normal. QRS jr8 interval is normal at 82 msec. QT interval is normal at 457 msec. No Q waves. T waves are Normal. No ST changes noted. Clinical impression: Atrial Fibrillation. Interpreted by me. Reviewed by me. Administered Medications: 17:40 Drug: Magnesium Sulfate 1 grams Route: IVPB; Infused Over: 1 hrs; Site: right iw antecubital; 23:51 Follow up: Response: No adverse reaction; IV Status: Completed infusion; IV Intake: as6 100ml 17:50 Drug: Digoxin 0.5 mg Route: IVP; Site: right antecubital; iw 23:52 Follow up: Response: No adverse reaction as6 17:50 Drug: Etomidate 20 mg Route: IVP; Site: right antecubital; iw 23:52 Follow up: Response: No adverse reaction as6 17:50 Drug: Succinylcholine 100 mg Route: IVP; Site: right antecubital; iw 23:52 Follow up: Response: No adverse reaction as6 18:20 Drug: Propofol 5 mcg/kg/min Route: IV; Rate: calculated rate; Site: right antecubital; jd3 18:50 Follow up: Response: No adverse reaction; Propofol held at this time per provider's jd3 order. pt responding appropriately at this time. remains orally intubated. 23:51 Follow up: Response: No adverse reaction; IV Status: Order to discontinue infusion; IV as6 Intake: 20ml 19:31 Drug: Lasix (furosemide) 40 mg Route: IVP; Site: right antecubital; as6 23:51 Follow up: Response: No adverse reaction as6 19:33 Drug: Lovenox (enoxaparin) 120 mg Route: Sub-Q; Site: abdomen; as6 23:51 Follow up: Response: No adverse reaction as6 22:23 Drug: LevaQUIN (levofloxacin) 500 mg Volume: 100 ml; Route: IVPB; Infused Over: 60 as6 mins; Site: right antecubital; 23:50 Follow up: Response: No adverse reaction; IV Status: Completed infusion; IV Intake: as6 100ml 23:30 Drug: Ketamine 100 mg Route: IVP; Site: right antecubital; as6 23:50 Follow up: Response: No adverse reaction as6 23:30 Drug: Ativan (LORazepam) 2 mg Route: IVP; Site: right antecubital; as6 23:50 Follow up: Response: No adverse reaction as6 23:47 Drug: Lopressor (metoprolol) 2.5 mg Route: IVP; Site: right antecubital; as6 23:50 Follow up: Response: No adverse reaction as6 Disposition: 03/11 07:08 Co-signature as Attending Physician, Aman Kay MD. rn Disposition Summary: 03/10/22 20:48 Transfer Ordered Transfer Location: Other Acute Care Facility jr8 Reason: Higher level of care jr8 Condition: Fair jr8 Problem: new jr8 Symptoms: have improved jr8 Accepting Physician: Dr. 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 jr8 as6 22:06 20:48 . jr8 jr8 23:52 22:06 Dr. Jacobson jr8 as6
--- NOTE | 2022-03-10 20:48 | ER ---
Nurse's Notes [facility] Name: Charity Jacob Age: 46 yrs Sex: Female : 1975 Arrival Date: 03/10/2022 Time: 17:36 Bed 4 Private MD: Diagnosis: Acute pulmonary edema;Acute on chronic combined systolic (congestive) and diastolic (congestive) heart failure;Supraventricular tachycardia;Chronic atrial fibrillation Presentation: 03/10 17:40 Chief complaint: EMS states: respiratory distress from home, was 70 % on CPAP, pt iw arrives to ER, 64%, cyantoic, HR = 202, Ned Roszak at bedside. 17:40 Acuity: MAIKEL 1 iw 17:40 Method Of Arrival: EMS: [facility] iw 18:04 Coronavirus screen: Client presents with at least one sign or symptom that may indicate iw coronavirus-19. Ebola Screen: Patient negative for fever greater than or equal to 101.5 degrees Fahrenheit, and additional compatible Ebola Virus Disease symptoms Patient denies exposure to infectious person. Patient denies travel to an Ebola-affected area in the 21 days before illness onset. No symptoms or risks identified at this time. Initial Sepsis Screen: Does the patient meet any 2 criteria? Does the patient have a suspected source of infection?. Risk Assessment: Do you want to hurt yourself or someone else? Patient reports no desire to harm self or others. Onset of symptoms was March 10, 2022. Triage Assessment: 18:28 General: Appears distressed. Respiratory: Airway is patent Respiratory effort is jd3 labored, shallow, weak, Respiratory pattern is regular, hyperventilation tachypnea Breath sounds are diminished bilaterally. Onset: The symptoms/episode began/occurred today, the patient has severe shortness of breath. 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 - Social history:: Smoking status: unknown. Screenin:28 Abuse screen: Denies threats or abuse. Nutritional screening: No deficits noted. jd3 Tuberculosis screening: No symptoms or risk factors identified. Fall Risk IV access (20 points). Ambulatory Aid- Furniture (30 pts.). Gait- Impaired (20 pts.). Mental Status- Overestimates/Forgets Limitations (15 pts.). Total Sweeney Fall Scale indicates High Risk Score (45 or more points). Fall prevention measures have been instituted. Side Rails Up X 2 Placed Close to Nursing Station Frequent Obs/Assessments Occuring. Assessment: 17:50 General: Appears distressed, Behavior is anxious, inappropriate for age, restless. jd3 Pain: Unable to use pain scale. Patient is disoriented. FLACC scale score is 5 out of 10. Neuro: Level of Consciousness is awake, confused, Oriented to none. Cardiovascular: Rhythm is SVT. Respiratory: Reports shortness of breath at rest Airway is patent Respiratory effort is labored, shallow, weak, Respiratory pattern is symmetrical, hyperventilation tachypnea Breath sounds are diminished bilaterally. GI: Abdomen is round obese. : No signs and/or symptoms were reported regarding the genitourinary system. EENT: No signs and/or symptoms were reported regarding the EENT system. Derm: Skin is intact, Skin is moist, Skin is normal, Skin temperature is warm. Musculoskeletal: No signs and/or symptoms reported regarding the musculoskeletal system. 18:00 Reassessment: Patient and/or family updated on plan of care and expected duration. Pain jd3 level reassessed. pt appears more relaxed with respirations on ventilator. sedated at this time with Propofol. Diminished lung sounds ABDIFATAH. Neuro: Level of Consciousness is sedated due to intubation. Cardiovascular: Heart tones present Rhythm is atrial fibrillation. Respiratory: Airway via oral intubation Respiratory effort is even, Respiratory pattern is symmetrical. 18:15 Reassessment: No changes from previously documented assessment. Patient and/or family jd3 updated on plan of care and expected duration. Pain level reassessed. 18:30 Reassessment: No changes from previously documented assessment. Patient and/or family jd3 updated on plan of care and expected duration. Pain level reassessed. 18:46 Reassessment: Patient and/or family updated on plan of care and expected duration. Pain jd3 level reassessed. pt waking up and responding appropriately to yes and no questions. verbal order received by Ned GUIDO to hold sedation at this time. reports yes to being asked if she felt better. pt wrote on a paper that she normally gets a pure wick to help with urine vs a Villa. provider notified. Patient states feeling better. Neuro: Level of Consciousness is awake, obeys commands. Respiratory: Airway is patent via oral intubation Breath sounds are diminished bilaterally. 19:00 Reassessment: No changes from previously documented assessment. Patient and/or family jd3 updated on plan of care and expected duration. Pain level reassessed. Pure wick in place. pt continues to respond appropriately. Neuro: Level of Consciousness is awake, obeys commands, Oriented to person, place, time, situation. Respiratory: Airway via oral intubation Breath sounds are diminished bilaterally. 19:34 General:. General: Appears obese. Neuro: Level of Consciousness is awake, alert, obeys as6 commands. Cardiovascular: Rhythm is atrial fibrillation. Respiratory: Ventilator assessment: ET Tube: 7.5 Ventilator Mode: Synchronized Intermittent Mandatory Ventilation (SIMV). Tidal Volume: 500 Respiratory Rate: 18 FiO2: 70 Pressure Support: 15 PEEP: 5 HOB > 30 degrees. 20:16 General: family at bedside . as6 Vital Signs: 18:00 Weight 215.46 kg (R); jd3 18:05 BP 133 / 88; Pulse 92; Resp 20 A; Pulse Ox 99% on ETT vent; iw 18:25 BP 114 / 51; Pulse 83; Resp 16 A; Pulse Ox 98% on ETT vent; jd3 18:33 BP 84 / 48; Pulse 83; Resp 16 S; Pulse Ox 98% on ETT vent; jd3 18:45 BP 90 / 59; Pulse 103; Resp 21 A; Pulse Ox 99% on ETT vent; jd3 19:02 BP 103 / 56; Pulse 94; Resp 16 A; Pulse Ox 99% on 100% FiO2 ETT vent; jd3 19:35 BP 97 / 45; Pulse 96; Resp 13 A; Pulse Ox 98% on 70% FiO2 ETT vent; as6 20:16 BP 98 / 48; Pulse 82; Resp 18 A; Pulse Ox 100% on 70% FiO2 ETT vent; as6 20:17 Temp 97.6(TE); mw2 21:00 BP 110 / 73; Pulse 86; Resp 18 A; Pulse Ox 100% on 70% FiO2 ETT vent; as6 22:21 BP 106 / 66; Pulse 83; Resp 18 A; Pulse Ox 98% on 70% FiO2 ETT vent; as6 23:00 BP 104 / 65; Pulse 73; Resp 18 A; Pulse Ox 100% on 70% FiO2 ETT vent; as6 23:48 BP 115 / 74; Pulse 88; Resp 18 A; Pulse Ox 100% on 70% FiO2 ETT vent; as6 Simba Coma Score: 19:35 Eye Response: spontaneous(4). Verbal Response: oriented(5). Motor Response: obeys as6 commands(6). Total: 15. ED Course: 17:36 Patient arrived in ED. rn 17:36 Aman Kay MD is Attending Physician. rn 17:48 Inserted saline lock: 20 gauge in right antecubital area, using aseptic technique. jd3 Blood collected. placed by Ned GUIDO. 17:53 Assisted provider with intubation using 7.5 mm ETT via oral route. ET tube secured at jl7 25cm at the lips. Set up intubation tray. Intubated by Ned GUIDO Placement verified by CO2 detector w/ + color change, auscultating bilateral breath sounds, Patient tolerated sedated. 17:55 Ned Diop PA is [facility]. jr8 18:03 Triage completed. iw 18:15 NGT: inserted 18 Fr. other OG verified placement of air over stomach, verified return jd3 of gastric contents, to intermittent suction. Returned gastric contents. Patient tolerated well. 18:21 Edy Gunter RN is Primary Nurse. jd3 18:50 Arm band placed on. jd3 19:01 XRAY Chest (1 view) In Process Unspecified. EDMS 19:03 Patient has correct armband on for positive identification. Placed in gown. Bed in low jd3 position. Side rails up X2. [employer] rep on. Pulse ox on. NIBP on. 19:13 Primary Nurse role handed off by Edy Gunter, RULA mw2 19:21 Osiel Hoarn, RULA is Primary Nurse. as6 20:03 initiated a transfer with Ranulfo from [facility]. mw2 20:40 connected Ned GUIDO with the Founder from [facility]. mw2 21:59 administrative approval given by Ranulfo Krishnan/patient has been accepted to [address] bed I206/ Dr. Jacobson accepted the patient in transfer/report to be called to [phone]. 23:50 Patient transferred, IV remains in place. as6 Administered Medications: 17:40 Drug: Magnesium Sulfate 1 grams Route: IVPB; Infused Over: 1 hrs; Site: right iw antecubital; 23:51 Follow up: Response: No adverse reaction; IV Status: Completed infusion; IV Intake: as6 100ml 17:50 Drug: Digoxin 0.5 mg Route: IVP; Site: right antecubital; iw 23:52 Follow up: Response: No adverse reaction as6 17:50 Drug: Etomidate 20 mg Route: IVP; Site: right antecubital; iw 23:52 Follow up: Response: No adverse reaction as6 17:50 Drug: Succinylcholine 100 mg Route: IVP; Site: right antecubital; iw 23:52 Follow up: Response: No adverse reaction as6 18:20 Drug: Propofol 5 mcg/kg/min Route: IV; Rate: calculated rate; Site: right antecubital; jd3 18:50 Follow up: Response: No adverse reaction; Propofol held at this time per provider's jd3 order. pt responding appropriately at this time. remains orally intubated. 23:51 Follow up: Response: No adverse reaction; IV Status: Order to discontinue infusion; IV as6 Intake: 20ml 19:31 Drug: Lasix (furosemide) 40 mg Route: IVP; Site: right antecubital; as6 23:51 Follow up: Response: No adverse reaction as6 19:33 Drug: Lovenox (enoxaparin) 120 mg Route: Sub-Q; Site: abdomen; as6 23:51 Follow up: Response: No adverse reaction as6 22:23 Drug: LevaQUIN (levofloxacin) 500 mg Volume: 100 ml; Route: IVPB; Infused Over: 60 as6 mins; Site: right antecubital; 23:50 Follow up: Response: No adverse reaction; IV Status: Completed infusion; IV Intake: as6 100ml 23:30 Drug: Ketamine 100 mg Route: IVP; Site: right antecubital; as6 23:50 Follow up: Response: No adverse reaction as6 23:30 Drug: Ativan (LORazepam) 2 mg Route: IVP; Site: right antecubital; as6 23:50 Follow up: Response: No adverse reaction as6 23:47 Drug: Lopressor (metoprolol) 2.5 mg Route: IVP; Site: right antecubital; as6 23:50 Follow up: Response: No adverse reaction as6 Intake: 23:50 IV: 100ml; Total: 100ml. as6 23:51 IV: 20ml; Total: 120ml. as6 23:51 IV: 100ml; Total: 220ml. as6 Outcome: 20:48 ER care complete, transfer ordered by . jr8 23:49 Transferred by ground EMS to [facility], Transfer form completed. as6 X-rays sent w/ patient. 23:49 Condition: stable 23:49 Instructed on the need for transfer. 23:52 Patient left the ED. as6 Signatures: Dispatcher [employer] Jeni Jaramillo, Aman Barrett RN, MD MD rn Roszak, Josh, PA PA jr8 Kevin Kinsey RN RN jl7 Edy Gunter RN RN jd3 [place], MyKena mw2 Osiel Horan RN RN as6 Corrections: (The following items were deleted from the chart) 18:33 17:50 Respiratory: Reports shortness of breath at rest Airway is patent Respiratory jd3 effort is labored, shallow, weak, Respiratory pattern is symmetrical, hyperventilation tachypnea Breath sounds are diminished bilaterally. jd3 19:02 18:46 Reassessment: Patient and/or family updated on plan of care and expected jd3 duration. Pain level reassessed. pt waking up and responding appropriately to yes and no questions. verbal order received by Ned GUIDO to hold sedation at this time. reports yes to being asked if she felt better. pt wrote on a paper that she normally gets a pure wick to help with urine vs a Villa. provider notified. Patient states feeling better. jd3
[2022-03-10] MEDS ORDERED: Levofloxacin500mg IV 500 MG/100 ML BAG IV ONE (21:43)
[2022-03-10] MEDS ORDERED: KETAMINE HCL 500 MG/5 ML VIAL ONE (23:29)
[2022-03-10] MEDS ORDERED: LORazepam 2 MG/ML VIAL ONE (23:30)
[2022-03-11 04:31] VITALS: TEMP 97.6
[2022-03-11 04:35] VITALS: O2SAT 100
[2022-03-11 04:37] VITALS: BP 115/74
--- NOTE | 2022-03-12 13:00 | EKG ---
Test Date: 2022-03-10 Test Time: 17:53:25 [employer]: MEASUREMENT RESULTS: Intervals: Rate: 86 [place]: QRSD: 82 QT: 382 QTc: 457 [place]: P: [place]: QRS: 50 T: 76 INTERPRETIVE STATEMENTS: Atrial fibrillation Low voltage QRS Nonspecific T wave abnormality Abnormal ECG Compared to ECG 12/01/2021 09:09:09 T-wave abnormality now present Atrial flutter no longer present Myocardial infarct finding no longer present Electronically Signed On 03-12-22 12:57:47 CDT by Sav Domínguez
== END 2022-03-10 23:52 ==
LOC: ER 17:36
DX: I50.43 Acute on chronic combined systolic (congestive) and diastolic (congestive) heart failure (principal); I47.1 Supraventricular tachycardia; I48.20 Chronic atrial fibrillation, unspecified; Z88.0 Allergy status to penicillin; I89.0 Lymphedema, not elsewhere classified; Z20.822 Contact with and (suspected) exposure to COVID-19
CPT/HCPCS: 92960; 96365; 96367; 93005; 87040 ×2; 85025; 80048; 36415; 83735; 85610; 82947; 80076; 83605 ×2; 84484; 83880; 71045; 94002; 82805; 31500; 96375; 96372; 99291; 99292; 96366; U0003; J1160; J0330; J1940; J2704; J1650 ×2; J3010; J3475

== ENCOUNTER 2022-03-26 13:37 | Inpatient (IN) | payer BC ==
--- NOTE | 2022-03-28 16:02 | R.PREADM ---
PRE-ADMISSION SCREENING FORM SCREENING DATE AND TIME 03/28/2022 15:10 (CDT) ANTICIPATED REHAB ADMISSION DATE 03/28/2022 REFERRING FACILITY [facility] REFERRAL DATE AND TIME 03/27/2022 09:10 (CDT) ACUTE ADMIT DATE 03/11/2022 Previous Rehabilitation(s): No. 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 Eulogio Garcia M.D. MR# [id number] NAME GRAZYNA GOMEZ ADDRESS [address] [place] [id number] [place] [address] PHONE [facility] [id number] DATE OF 1975 AGE 46 SSN# [id number] GENDER female MARITAL STATUS Single (Never ) RACE ADMIT FROM 02 - [facility] PRE-HOSPITAL LIVING SETTING 01 - Home (private home/apt. board/care, assisted living, fci, transitional living) HOME TYPE AND DETAILS Type of home: apartment # of levels in the residence: 1 # of steps within the residence: 0 # of steps to enter the residence: 0 PRE-HOSPITAL LIVING WITH Family/Relatives FAMILY SUPPORT Yes PRIMARY FAMILY CONTACT NAME Nika Gomez PRIMARY FAMILY CONTACT PHONE PRIMARY FAMILY CONTACT RELATIONSHIP Mother PHONE PRIMARY FAMILY CONTACT ON ADM.? no IS PRIMARY FAMILY CONTACT AUTH. REP.? no 1ST EMERGENCY CONTACT Nika Gomez 1ST CONTACT PHONE 1ST CONTACT RELATIONSHIP Mother PHONE 1ST CONTACT ON ADM. no IS 1ST CONTACT AUTH. REP.? no PHONE 2ND CONTACT ON ADM.? no PATIENT EMPLOYMENT STATUS Not Working PATIENT EMPLOYER No Employer PAYOR INFORMATION: 1ST PAYOR NAME [employer] ADV HMO EXCHANGE 1ST PAYOR INJURY/ILLNESS DUE TO ACCIDENT? No ANOTHER GREEN PARTY RESPONSIBLE? No PRIMARY REHAB/ACUTE DIAGNOSIS: J96.01 Chronic Hypoxemic Respiratory Failure ONSET DATE 03/11/2022 REHAB IMPAIRMENT CATEGORY (JAKY): 20 Miscellaneous (Misc) does NOT meet 60% rule PRIMARY DIAGNOSIS-RELATED SURGERIES: No surgeries related to the primary diagnosis were performed. COMORBID REHAB/ACUTE DIAGNOSES: - Tier 3 Morbid (severe) obesity due to excess calories (E66.01) INTERVENTIONS: - Afib Administer prescribed anticoagulants and monitor for effectiveness Vitals will be monitored regularly - Obesity hypoventilation synrome Promote healthy diet Monitor O2 sats regularly ghs - Acute hypoxemic respiratory failure Reposition pt frequently to maximise lung expansion Provide emotional support to reduce anxiety Provide supplemental o2 and monitor for effectiveness Administer medications as indicated - Biventricular congestive heart failure Monitor O2 saturation Provide supplemental o2 and monitor for effectiveness Monitor for s/s of fluid overload Monitor pt labs Administer medications as indicated - Chronic Venous Stasis Administer medications for pain Provide comfort measures - Pulmonary Edema Maintain elevated HOB Monitor pt v/s regularly Administer supplemental O2 Administer prescribed medications Encourage physical activity - Acute Kidney Injury Monitor pt for s/s of kidney insufficiency Monitor pt labs - Hypertension Increase physical activity Administer medications indicated by physician and monitor for effectiveness. Monitor patient B/P regularly - Acute on Chronic Systolic CHF Monitor O2 saturation Provide supplemental o2 and monitor for effectiveness Administer medications as indicated by physician RISK FOR COMPLICATIONS: - Fluid Overload Administer prescribed diuretics Monitor pt fluid intake - Pain Anticipate the need for pain medication for optimal pain managment Administer prescribed pain medication as needed Education patient on relaxation and deep breathing techniques - Skin Breakdown Encourage ambulation as tolerated Repositioning q 2 hours Use of pillows or foam wedges while in bed - Respiratory Failure Administer supplemental O2 as needed Monitor pt O2 sats - DVT Active and Passive ROM exercises Elevate BLE Assist patient with frequent position changes - Falls Assess for medication side effects Maintain call light within patient reach for easy access to nursing assistance Provide assistance getting out of bed and with ambulation Provide assistive devices - Stroke Monitor and maintain patient pain level Monitor patient blood pressure SUMMARY OF ACUTE HOSPITALIZATION: Pt. is a 46 yo female. On 03/11/2022 she was admitted to [facility] with diagnosis J96.01 Chronic Hypoxemic Respira tory Failure. Her impairment category is Medically Complex Conditions 17 - Respiratory Disorders - Non-ventilator Dependent (17.52). Pre-morbidly, Pt. was independent/mod-I in Locomotion, Self-Care, and Safety Awareness; and she had g ood Balance, Transfers Control, and Endurance. Currently, she has deficits of Locomotion, Safety Awareness, Balance, Self-Care, and Endurance. Pt. is now referred to [facility] for acute in-patient rehabilitation in order to maximize patient's functional independence in activities of daily living, strength, ROM, and mobi lity. Patient has realistic goal of being discharged at assistance level 7-Ind to reside at Home with Fami ly/Relatives. PAST MEDICAL HISTORY Morbid (severe) obesity due to excess calories (E66.01) Asthma (J45) Chronic systolic (congestive) heart failure (I50.22) Prediabetes (R73.03) Atrial Fibrillation with RVR Acute respiratory failure with hypoxia (J96.01) Obesity hypoventilation syndrome Hypertension PAST SURGICAL HISTORY: None MEDICATION ALLERGIES: No Known Drug Allergies (NKDA) ENVIRONMENTAL ALLERGIES: - Substance Allergies None Known - Other Allergies Penicillin CODE STATUS: Full code WEIGHT/HEIGHT/BMI: WEIGHT 443 lbs HEIGHT 5' 7" BMI 69.4 DIET: - Diet Type Low Sodium - Diet - Solid Texture Cut-up - Diet - Liquid Texture Thin - Tube Feed N/A None REVIEW OF SYSTEMS: - Gen Alert and awake Lying in bed No apparent distress Oriented to: person, time, and place - Vital Signs Temperature: 98.8 F SBP/DBP: 113/61 Pulse: 98 Resp: 18 Vital signs stable, afebrile - CVS RRR VITAL SIGNS Temperature: 98.8 F SBP/DBP: 113/61 Pulse: 98 Resp: 18 Vital signs stable, afebrile MEDICATIONS/TREATMENT: Other- See attached MAR (Medication Administration Record). CURRENT SPHINCTER CONTROL: Pre-hospital bladder status: unspecified # of bladder accidents in the last 7 days prior to screenin Pre-hospital bowel status: unspecified # of bowel accidents in the last 7 days prior to screenin Last Bowel Movement Date: 03/27/2022 CURRENT LOCOMOTION STATUS: distance walked 0 feet DETAILED CURRENT FUNCTIONAL STATUS: - Bladder accident frequency: 7-Ind - No accidents in the past 7 days - Bowel accident frequency: 7-Ind - No accidents in the past 7 days - Walking score based on distance walked: 0(N/A) - Wheelchair score based on distance traveled: 0(N/A) QI SCORES: - Self-Care A. Eating 88-Not attempted due to medical condition or safety concerns B. Oral hygiene 04-Supervision or touching assistance C. Toileting hygiene 88-Not attempted due to medical condition or safety concerns E. Shower/bathe self 88-Not attempted due to medical condition or safety concerns F. Upper body dressing 03-Partial/moderate assistance G. Lower body dressing 02-Substantial/maximal assistance H. Putting on/taking off footwear 02-Substantial/maximal assistance - Mobility A. Roll left and right 02-Substantial/maximal assistance B. Sit to lying 02-Substantial/maximal assistance C. Lying to sitting on side of bed 02-Substantial/maximal assistance D. Sit to stand 02-Substantial/maximal assistance E. Chair/[id number] transfer 02-Substantial/maximal assistance F. Toilet transfer 88-Not attempted due to medical condition or safety concerns G. Car transfer 88-Not attempted due to medical condition or safety concerns I. Walk 10 feet 88-Not attempted due to medical condition or safety concerns J. Walk 50 feet with two turns 88-Not attempted due to medical condition or safety concerns K. Walk 150 feet 88-Not attempted due to medical condition or safety concerns L. Walking 10 feet on uneven surfaces 88-Not attempted due to medical condition or safety concerns M. 1 step (curb) 88-Not attempted due to medical condition or safety concerns N. 4 steps 88-Not attempted due to medical condition or safety concerns O. 12 steps 88-Not attempted due to medical condition or safety concerns P. Picking up object 88-Not attempted due to medical condition or safety concerns R. Wheel 50 feet with two turns 88-Not attempted due to medical condition or safety concerns S. Wheel 150 feet 88-Not attempted due to medical condition or safety concerns - Bladder and Bowel Bladder continence 9-Not applicable Bowel continence 2-Frequently incontinent - Endurance Poor - Balance Poor - Safety Awareness Poor CURRENT FUNC. DEFICITS: Mobility, Endurance, Balance, Safety Awareness, and Self-Care CURRENT / PREVIOUS ASSISTIVE DEVICES: 3-in-1 Commode Shower Chair Wheelchair CURRENT USE ASSISTIVE DEVICES: CPAP HISTORY OF FALLS. HAS THE PATIENT HAD TWO OR MORE FALLS IN THE PAST YEAR OR ANY FALL WITH INJURY IN T HE PAST YEAR?: No PRIOR SURGERY. DID THE PATIENT HAVE MAJOR SURGERY DURING THE 100 DAYS PRIOR TO ADMISSION?: No THERAPY NOTES FROM ACUTE CARE: Attached. SPECIAL NEEDS: - Safety Concerns Skin breakdown and Fall precautions needed due to skin breakdown risk, Poor balance, High fall risk, and Risk of injury - IV IVF inserted on unknown - Fall Precautions Due to poor balance - Respiratory Supplemental oxygen: 2 liters Nasal [place] Cpap PRECAUTIONS: - Fall Precaution Bed alarm TABS alarm Wheel chair alarm - Incontinence Bowel Incontinence - DVT Risk due to restricted mobility and obesity - Skin Breakdown Risk due to restricted mobility and age - Cardiac Precaution Monitor blood pressure, heart rate, lower extremity edema, notify MD for shortness of breath or chest pain Monitor patient for excessive elevation of heart rate and blood pressure during therapy Nursing and Therapy to monitor pt before and after therapy sessions for signs of Chest pain - Aspiration Precaution Seated at 90 degrees while eating and 30 minutes after meals PATIENT NEEDS ACTIVE AND ONGOING THERAPEUTIC INTERVENTION OF MULTIPLE THERAPY DISCIPLINES, INCLUDING: - Dietary and Nutrition Adequate Nutrition. Nutritional Education. Nutritional Supplements. - Occupational Therapy Cognitive Retraining. Patient needs Occupational Therapy for a daily minimum of 1.5 hours at least 5 out of 7 days, to improve Activities of Daily Living, including: Eating, Grooming, Bathing, Dressing, Toileting, Toilet Transfers, Community Reintegration, Higher functional activities, Adaptive Equipme nt, Splinting, Household Tasks, and Other activities as determined. Visual Perceptual Training. Evalu ate and Treat. UE Strengthening. UE ROM. Safety Awareness. Indep. ADL's- Higher Level Functioning. Pa tient/Family Education. - Speech Therapy Cognitive Training. Expressive Language Skills. Memory Strategies. Patient needs Speech Therapy for a daily minimum of 1.5 hours at least 5 out of 7 days, to improve: Swallowing, Cognition, Language Sk ills, and Compensatory Strategies. Receptive Language Skills. Speech Intelligibility Training. - Physical Therapy Patient needs Physical Therapy for a daily minimum of 1.5 hours at least 5 out of 7 days, to improve: Mobility, Strengthening, Transfers, Stretching, ROM, Endurance, Ability to manage stairs, Gait, and Balance. Safety Awareness. Wheelchair Management. Evaluate and Treat. Patient/Family Education. Modal ities Training. - Functional Scores Obtained on 03/26/2022. PATIENT NEEDS CLOSE MEDICAL SUPERVISION BY A REHABILITATION PHYSICIAN FOR: Coordination of Treatment Team Medical and Co-Morbidity Management Respiratory/Airway Management Bowel and Bladder Management Pain Management Sleep Problems PATIENT REQUIRES 24X7 REHAB NURSING FOR MEDICAL AND FUNCTIONAL MGT. OF THE FOLLOWING DEFICITS: Patient requires 24x7 Rehabilitation Nursing for: Pain Issues, Identifying and preventing risk factor s, Monitoring and reporting current medical conditions, Assisting with ambulation and transfer, Monique ting with all ADL-s, Teaching patients about disease process and medications, Family teaching, Provid ing safe environment, Bowel and Bladder Issues, Skin Integrity, and Medication Management Respiratory/Airway Management Pain Management Disease Management PATIENT REQUIRES INTENSIVE, COORDINATED INTERDISCIPLINARY APPROACH TO REHAB: Patient needs Dietary and Nutrition Services for: Adequate Nutrition, Nutritional Supplements, and Nu tritional Education Patient needs Addiction Social Worker and/or Case Management for: Discharge Planning, Arranging Home Equipmen t or Services, and Family Interventions PATIENT REHAB POTENTIAL: Francie GOMEZ is able and expected to receive 3 hours of individualized therapy daily on at least 5 of every 7 days Francie Manning prognosis for significant practical improvement within a reasonable period of time appe ars Good Expected level of measurable improvement will be of a practical value to Francie MAYAs functional cap acity or adaptations to impairments Has a viable Discharge Plan Medically appropriate; condition is sufficiently stable to participate in intensive rehab program DISCHARGE PLAN: - Estimated Length of Stay (days) 13. - Consensus on plan Discharge plan has been discussed with primary caregiver. Patient/Family is in agreement with the brad n. Primary caregiver is in agreement with the plan. - Patient/Family Goals Return home independently. - Potential barriers to discharge Any lines must be removed or patient/caregiver needs to be educated on line care. - Planned Living Setting Upon Discharge Home, to live with Family/Relatives. Transitional Living. RECOMMENDED CARE LEVEL: IRF RECOMMENDATION DETAILS: Recommended Admission to Comprehensive Rehabilitation Program to Increase Functional Cotton SCREENER'S COMPLETENESS CONFIRMATION: - Screening Confirmation The patient data collection on this preadmission screening form is finished PHYSICIANS REVIEW AND ADMISSION DETERMINATION Admit - Based on my review of the Pre-Admission Screening results, in my medical judgment and experie nce, I concur with the findings and recommend admission to [facility], as this patient requires an IRF level of care. SIGNATURE PANEL: Fig Caprifier - [electronically] signed by Ehsan Lira PT on 03/28/2022 at 15:30 (CDT) Physician Reviewer - [electronically] signed by Dr. Eulogio Garcia M.D. on 03/28/2022 at 16:01 (CDT )
--- OUTSIDE RECORDS SUMMARY | 2022-03-29 01:32 | XMS REPORT | Continuity of Care Document ---
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 Telemedicturner Dejesus [facility] [id number] Param 06:15:21 13:54:30 ne [facility] 2021-06-06 2021-06-06 Khushbu Dejesus [facility] [id number] Param 00:00:00 00:00:00 Only [facility] 2021-06-04 2021-06-04 Outpatient BARBSVITLANA, [facility] [id number] [place] 06:29:01 06:29:01 [facility] 2021-05-28 2021-05-28 Clinical Tre, [facility] [id number] [place] 00:00:00 00:00:00 Case Mgt Jessie Lalaira 2021-05-28 2021-05-28 Clinical Tre, [facility] [id number] [place] 00:00:00 00:00:00 Case Mgt Jessie Lalaira 2021-05-27 2021-05-27 Clinical Tre, [facility] [id number] [place] 00:00:00 00:00:00 Case Mgt Jessie Lalaira 2021-05-27 2021-05-27 Clinical Tre, [facility] [id number] [place] 00:00:00 00:00:00 Case Mgt Jessie Lalaira 2021-05-20 2021-05-25 [facility] [id number] [place] 15:31:00 16:57:00 [facility] 2021-05-21 Outpatient JOHN, [facility] [id number] [place] 07:07:53 07:07:53 [facility] 2021-05-20 2021-05-20 Emergency [facility] [id number] [place] 15:26:47 15:57:43 [facility] 2021-02-21 2021-02-21 Clinical Tre, [facility] [id number] [place] 00:00:00 00:00:00 Case Mgt Jessie Lalaira 2021-02-20 2021-02-20 Clinical Tre, [facility] [id number] [place] 00:00:00 00:00:00 Case Mgt Jessie Lalaira 2021-02-11 2021-02-19 [facility] Murray, Nicola [facility] [id number] [place] 15:09:00 14:20:00 Encounter Marbella Allan [facility] 2021-02-14 2021-02-14 [facility] [id number] [place] 15:05:12 15:05:16 KIMI Black 2021-02-13 2021-02-13 [facility] [id number] [place] 12:05:21 12:09:39 MARBELLA Casas 2021-02-11 2021-02-11 Emergency [facility] [id number] [place] 18:23:09 19:21:38 Health 2021-02-11 2021-02-11 Emergency [facility] [id number] [place] 17:24:22 17:44:35 [facility] 2020-12-17 2020-12-17 Letter SVITLANA Bonner [id number] 00:00:00 00:00:00 (Out) Connie Zhang SENIOR INSTRUMENTATION ENGINEER 350.1.13.10 REGIONAL 4.2.7.2.686 MATERNAL [id number] & CHILD [address] [facility] 2020-11-06 2020-11-06 Telephone JULIO Bonner [id number] 00:00:00 00:00:00 Connie Zhang SENIOR INSTRUMENTATION ENGINEER 350.1.13.10 REGIONAL 4.2.7.2.686 MATERNAL [id number] & CHILD [address] [facility] Results Test Description Test Time Test Comments Results Result Comments Source MAGNESIUM 2022-03-28 06:14:02 Test Item Value Reference Range Interpretation Comme nts MAGNESIUM (BEAKER) (test code = 627) 1.9 mg/dL 1.5-3.0 Plating Inspector ID - LITOOperator ID - LITOOperator ID - LITOOperator ID - LITOBASIC METABOLIC [id number] 06:13:50 Test Item Value Reference Range Interpretation Comments SODIUM (BEAKER) (test 144 meq/L 135-148 code = 381) POTASSIUM (BEAKER) 3.6 meq/L 3.6-5.5 (test code = 379) CHLORIDE (BEAKER) 102 meq/L 98-106 (test code = 382) CO2 (BEAKER) (test 30 meq/L 20-29 H code = 355) BLOOD UREA NITROGEN 10 mg/dL 10-26 (BEAKER) (test code = 354) CREATININE (BEAKER) 0.68 mg/dL 0.50-1.20 (test code = 358) GLUCOSE RANDOM 90 mg/dL 70-110 (BEAKER) (test code = 652) CALCIUM (BEAKER) 8.5 mg/dL 8.5-10.5 (test code = 697) EGFR (BEAKER) (test INSUFFIC IENT CLINICAL code = 1092) DATA TO CALCULA TE ESTIMATED GFR. Plating Inspector ID - LITOOperator ID - LITOOperator ID - LITOOperator ID - LITOOperator ID - LITOOperator ID - LITOOperator ID - LITOOperator ID - LITOOperator ID - LITOOperator ID - [id number] 06:11:01 Test Item Value Reference Range Interpretation Comments PHOSPHORUS (BEAKER) (test code = 3.4 mg/dL 2.5-4.5 604) Plating Inspector ID - LITOCBC W/PLT COUNT & AUTO [id number] 05:56:30 Test Item Value Reference Range Interpretation Comments WHITE BLOOD CELL COUNT (BEAKER) 6.8 K/ L 4.0-10.0 (test code = 775) RED BLOOD CELL COUNT (BEAKER) 4.60 M/ L 4.00-5.00 (test code = 761) HEMOGLOBIN (BEAKER) (test code = 10.5 GM/DL 12.0-15.5 L 410) HEMATOCRIT (BEAKER) (test code = 36.8 % 36.0-46.0 411) MEAN CORPUSCULAR VOLUME (BEAKER) 80.0 fL 82.0-99.0 L (test code = 753) MEAN CORPUSCULAR HEMOGLOBIN 22.8 pg 27.0-33.0 L (BEAKER) (test code = 751) MEAN CORPUSCULAR HEMOGLOBIN CONC 28.5 GM/DL 32.0-36.0 L (BEAKER) (test code = 752) RED CELL DISTRIBUTION WIDTH 18.9 % 12.0-15.0 H (BEAKER) (test code = 412) PLATELET COUNT (BEAKER) (test 379 K/CU MM 150-430 code = 756) MEAN PLATELET VOLUME (BEAKER) 10.3 fL 6.0-11.5 (test code = 754) NUCLEATED RED BLOOD CELLS 0 /100 WBC 0-0 (BEAKER) (test code = 413) NEUTROPHILS RELATIVE PERCENT 67 % (BEAKER) (test code = 429) LYMPHOCYTES RELATIVE PERCENT 20 % (BEAKER) (test code = 430) MONOCYTES RELATIVE PERCENT 8 % (BEAKER) (test code = 431) EOSINOPHILS RELATIVE PERCENT 4 % (BEAKER) (test code = 432) BASOPHILS RELATIVE PERCENT 1 % (BEAKER) (test code = 437) NEUTROPHILS ABSOLUTE COUNT 4.53 K/ L 1.80-8.00 (BEAKER) (test code = 670) LYMPHOCYTES ABSOLUTE COUNT 1.33 K/ L 1.48-4.50 L (BEAKER) (test code = 414) MONOCYTES ABSOLUTE COUNT (BEAKER) 0.55 K/ L 0.00-1.30 (test code = 415) EOSINOPHILS ABSOLUTE COUNT 0.30 K/ L 0.00-0.50 (BEAKER) (test code = 416) BASOPHILS ABSOLUTE COUNT (BEAKER) 0.06 K/ L 0.00-0.20 (test code = 417) IMMATURE GRANULOCYTES-RELATIVE 0 % 0-0 PERCENT (BEAKER) (test code = 2801) BASIC METABOLIC [id number] 05:29:24 Test Item Value Reference Range Interpretation Comments SODIUM (BEAKER) (test 133 meq/L 135-148 L code = 381) POTASSIUM (BEAKER) 3.4 meq/L 3.6-5.5 L (test code = 379) CHLORIDE (BEAKER) 99 meq/L 98-106 (test code = 382) CO2 (BEAKER) (test 32 meq/L 20-29 H code = 355) BLOOD UREA NITROGEN 12 mg/dL 10-26 (BEAKER) (test code = 354) CREATININE (BEAKER) 0.65 mg/dL 0.50-1.20 (test code = 358) GLUCOSE RANDOM 85 mg/dL 70-110 (BEAKER) (test code = 652) CALCIUM (BEAKER) 9.0 mg/dL 8.5-10.5 (test code = 697) EGFR (BEAKER) (test INSUFFIC IENT CLINICAL code = 1092) DATA TO CALCULA TE ESTIMATED GFR. Plating Inspector ID - [id number] ID - [id number] ID - [id number] ID - [id number] ID - mann80Kqbooehs ID - aukp99Fdnqngnj ID - kuhj99Vtcmbznx ID - [id number] ID - phkk91Pmpiggjo ID - [id number] 05:29:17 Test Item Value Reference Range Interpretation Comments MAGNESIUM (BEAKER) (test code = 1.9 mg/dL 1.5-3.0 627) Plating Inspector ID - [id number] ID - [id number] ID - [id number] ID - [id number] 05:26:24 Test Item Value Reference Range Interpretation Comments PHOSPHORUS (BEAKER) (test code = 3.5 mg/dL 2.5-4.5 604) Plating Inspector ID - [id number] W/PLT COUNT & AUTO [id number] 05:09:58 Test Item Value Reference Range Interpretation Comments WHITE BLOOD CELL COUNT (BEAKER) 6.9 K/ L 4.0-10.0 (test code = 775) RED BLOOD CELL COUNT (BEAKER) 4.63 M/ L 4.00-5.00 (test code = 761) HEMOGLOBIN (BEAKER) (test code = 10.5 GM/DL 12.0-15.5 L 410) HEMATOCRIT (BEAKER) (test code = 36.7 % 36.0-46.0 411) MEAN CORPUSCULAR VOLUME (BEAKER) 79.3 fL 82.0-99.0 L (test code = 753) MEAN CORPUSCULAR HEMOGLOBIN 22.7 pg 27.0-33.0 L (BEAKER) (test code = 751) MEAN CORPUSCULAR HEMOGLOBIN CONC 28.6 GM/DL 32.0-36.0 L (BEAKER) (test code = 752) RED CELL DISTRIBUTION WIDTH 18.6 % 12.0-15.0 H (BEAKER) (test code = 412) PLATELET COUNT (BEAKER) (test 396 K/CU MM 150-430 code = 756) MEAN PLATELET VOLUME (BEAKER) 10.1 fL 6.0-11.5 (test code = 754) NUCLEATED RED BLOOD CELLS 0 /100 WBC 0-0 (BEAKER) (test code = 413) NEUTROPHILS RELATIVE PERCENT 61 % (BEAKER) (test code = 429) LYMPHOCYTES RELATIVE PERCENT 23 % (BEAKER) (test code = 430) MONOCYTES RELATIVE PERCENT 9 % (BEAKER) (test code = 431) EOSINOPHILS RELATIVE PERCENT 6 % (BEAKER) (test code = 432) BASOPHILS RELATIVE PERCENT 1 % (BEAKER) (test code = 437) NEUTROPHILS ABSOLUTE COUNT 4.19 K/ L 1.80-8.00 (BEAKER) (test code = 670) LYMPHOCYTES ABSOLUTE COUNT 1.56 K/ L 1.48-4.50 (BEAKER) (test code = 414) MONOCYTES ABSOLUTE COUNT (BEAKER) 0.62 K/ L 0.00-1.30 (test code = 415) EOSINOPHILS ABSOLUTE COUNT 0.40 K/ L 0.00-0.50 (BEAKER) (test code = 416) BASOPHILS ABSOLUTE COUNT (BEAKER) 0.06 K/ L 0.00-0.20 (test code = 417) IMMATURE GRANULOCYTES-RELATIVE 0 % 0-0 PERCENT (BEAKER) (test code = 2801) RAD, CHEST, 1 VIEW, NON [id number] 03:16:00Reason for exam:->f/u pulmonary edemaL[facility] : 1975 Sex: FFINAL REPORT RAD, CHEST, 1 VIEW, NON DEPT INDICATION: f/u pulmonary edema COMPARISON: Prior day's exam FINDINGS: Portable frontal view of the chest. IMPRESSION: SupportLines: Stable. Lungs and pleura: Unchanged bilateral central hazy airspace and interstitial opacities. No pneumothorax. Heart and mediastinum: Stable contours. Additional findings: None. Signed: Gopal Valencia Verified Date/Time: 03/27/2022 03:16:54 [id number] 11:42:31 Test Item Value Reference Range Interpretation Comments POTASSIUM (BEAKER) (test code = 3.3 meq/L 3.6-5.5 L 379) Plating Inspector ID - DSENSONOperator ID - DSENSONOperator ID - DSENSONOperator ID - DSENSONRAD, CHEST, 1 VIEW, NON [id number] 05:51:00Reason for exam:->[facility] : 1975 Sex: FFINAL REPORT RAD, CHEST, 1 VIEW, NON DEPT INDICATION: RF COMPARISON: Prior day's exam FINDINGS: Portable frontal view of the chest. IMPRESSION: Support Lines: Stable. Lungs and pleura: Unchanged venous congestion and bilateral hazy opacities suggestive of edema. No pneumothorax. Heart and mediastinum: Stable contours. Additional findings: None. Signed: Gopal Valencia MD Report Verified Date/Time: 03/26/2022 05:51:15 BASIC METABOLIC [id number] 05:39:26 Test Item Value Reference Range Interpretation Comments SODIUM (BEAKER) (test 144 meq/L 135-148 code = 381) POTASSIUM (BEAKER) 3.3 meq/L 3.6-5.5 L (test code = 379) CHLORIDE (BEAKER) 98 meq/L 98-106 (test code = 382) CO2 (BEAKER) (test 35 meq/L 20-29 H code = 355) BLOOD UREA NITROGEN 16 mg/dL 10-26 (BEAKER) (test code = 354) CREATININE (BEAKER) 0.74 mg/dL 0.50-1.20 (test code = 358) GLUCOSE RANDOM 85 mg/dL 70-110 (BEAKER) (test code = 652) CALCIUM (BEAKER) 9.3 mg/dL 8.5-10.5 (test code = 697) EGFR (BEAKER) (test INSUFFIC IENT CLINICAL code = 1092) DATA TO CALCULA TE ESTIMATED GFR. Plating Inspector ID - LITOOperator ID - LITOOperator ID - LITOOperator ID - LITOOperator ID - LITOOperator ID - LITOOperator ID - LITOOperator ID - LITOOperator ID - LITOOperator ID - [id number] 05:33:17 Test Item Value Reference Range Interpretation Comments MAGNESIUM (BEAKER) (test code = 2.2 mg/dL 1.5-3.0 627) Plating Inspector ID - LITOOperator ID - LITOOperator ID - LITOOperator ID - MICHAEL [id number] 05:30:43 Test Item Value Reference Range Interpretation Comments PHOSPHORUS (BEAKER) (test code = 3.7 mg/dL 2.5-4.5 604) Plating Inspector ID - LITOCBC W/PLT COUNT & AUTO [id number] 05:27:20 Test Item Value Reference Range Interpretation Comments WHITE BLOOD CELL COUNT (BEAKER) 7.4 K/ L 4.0-10.0 (test code = 775) RED BLOOD CELL COUNT (BEAKER) 4.81 M/ L 4.00-5.00 (test code = 761) HEMOGLOBIN (BEAKER) (test code = 10.5 GM/DL 12.0-15.5 L 410) HEMATOCRIT (BEAKER) (test code = 38.2 % 36.0-46.0 411) MEAN CORPUSCULAR VOLUME (BEAKER) 79.4 fL 82.0-99.0 L (test code = 753) MEAN CORPUSCULAR HEMOGLOBIN 21.8 pg 27.0-33.0 L (BEAKER) (test code = 751) MEAN CORPUSCULAR HEMOGLOBIN CONC 27.5 GM/DL 32.0-36.0 L (BEAKER) (test code = 752) RED CELL DISTRIBUTION WIDTH 18.7 % 12.0-15.0 H (BEAKER) (test code = 412) PLATELET COUNT (BEAKER) (test 449 K/CU MM 150-430 H code = 756) MEAN PLATELET VOLUME (BEAKER) 9.6 fL 6.0-11.5 (test code = 754) NUCLEATED RED BLOOD CELLS 0 /100 WBC 0-0 (BEAKER) (test code = 413) NEUTROPHILS RELATIVE PERCENT 67 % (BEAKER) (test code = 429) LYMPHOCYTES RELATIVE PERCENT 20 % (BEAKER) (test code = 430) MONOCYTES RELATIVE PERCENT 7 % (BEAKER) (test code = 431) EOSINOPHILS RELATIVE PERCENT 5 % (BEAKER) (test code = 432) BASOPHILS RELATIVE PERCENT 1 % (BEAKER) (test code = 437) NEUTROPHILS ABSOLUTE COUNT 4.98 K/ L 1.80-8.00 (BEAKER) (test code = 670) LYMPHOCYTES ABSOLUTE COUNT 1.44 K/ L 1.48-4.50 L (BEAKER) (test code = 414) MONOCYTES ABSOLUTE COUNT (BEAKER) 0.52 K/ L 0.00-1.30 (test code = 415) EOSINOPHILS ABSOLUTE COUNT 0.38 K/ L 0.00-0.50 (BEAKER) (test code = 416) BASOPHILS ABSOLUTE COUNT (BEAKER) 0.05 K/ L 0.00-0.20 (test code = 417) IMMATURE GRANULOCYTES-RELATIVE 0 % 0-0 PERCENT (BEAKER) (test code = 2801) VANCOMYCIN LEVEL, [id number] 18:00:19 Test Item Value Reference Range Interpretation Comments VANCOMYCIN TROUGH (BEAKER) (test 11.8 ug/mL 10.0-20.0 code = 522) Plating Inspector ID - [id number] 17:57:47 Test Item Value Reference Range Interpretation Comments POTASSIUM (BEAKER) (test code = 3.4 meq/L 3.6-5.5 L 379) Plating Inspector ID - [id number] ID - [id number] ID - [id number] ID - [id number]-GQAGCEN [id number] 17:47:50 Test Item Value Reference Range Interpretation Comments POC-GLUCOSE METER 91 mg/dL 70-110 : TESTED A T [facility] [address] (BEAKER) (test code = [address]) [facility] 77 478: Plating Inspector/Techni hermes ID = [id number] for Amalia Sandoval BASIC METABOLIC [id number] 13:18:53 Test Item Value Reference Range Interpretation Comments SODIUM (BEAKER) (test 144 meq/L 135-148 code = 381) POTASSIUM (BEAKER) 2.9 meq/L 3.6-5.5 L (test code = 379) CHLORIDE (BEAKER) 94 meq/L 98-106 L (test code = 382) CO2 (BEAKER) (test 41 meq/L 20-29 HH code = 355) BLOOD UREA NITROGEN 23 mg/dL 10-26 (BEAKER) (test code = 354) CREATININE (BEAKER) 0.76 mg/dL 0.50-1.20 (test code = 358) GLUCOSE RANDOM 95 mg/dL 70-110 (BEAKER) (test code = 652) CALCIUM (BEAKER) 9.1 mg/dL 8.5-10.5 (test code = 697) EGFR (BEAKER) (test INSUFFIC IENT CLINICAL code = 1092) DATA TO CALCULA TE ESTIMATED GFR. Plating Inspector ID - DSENSONOperator ID - DSENSONOperator ID - DSENSONOperator ID - DSENSONOperator ID - DSENSONOperator ID - DSENSONOperator ID - DSENSONOperator ID - DSENSONOperator ID - DSENSONOperator ID - DSENSONOperator ID - DSENSONOperator ID - DSENSONOperator ID - DSENSONPOCT-GLUCOSE [id number] 12:41:27 Test Item Value Reference Range Interpretation Comments POC-GLUCOSE METER 97 mg/dL 70-110 : TESTED A T [facility] 1317 (BEAKER) (test code = [address]) [facility] 77 478: Plating Inspector/Techni hermes ID = [id number] for Amalia Sandoval SARS-COV2/RT-PCR ([facility])2022-03-25 05:25:46 Test Item Value Reference Range Interpretation Comments SARS-COV2/RT-PCR Negative Negative The SARS-Co V-2 target (test code = nucleic acids a re not [id number]) detected in thi s specimen. Negative result s do not preclude SARS-C oV-2 infection and s hould not be used as the danisha e basis for patient managem ent decisions. Nega tive results must be combine d with clinical observ ations, patient history , and epidemiological information. A false negativ e result may occur if a spec imen is improperly jennifer ected, transported or handled. This SARS CoV-2 test is a rapid, real-andria e RT-PCR test intended for th e qualitative detection of nu cleic acid from SARS-CoV-2 in a nasopharyngeal swab specimen collected from individuals suspected of CO VID-19 by their healthcar e provider. This test has been authorized by FDA under an EUA for use by authorized laboratories. This test is only authorized for the duration of the declaration that circumstances exist justifying the authorization of emergency use of in vitro diagnostic tests for detection and/or diagnosis of COVID-19 under Section 564(b)(1) of the Federal Food, Drug and Cosmetic Act, 21 U.S.C. 360bbb- 3(b)(1), unless the authorization is terminated or revoked sooner. Fact Sheet for Healthcare Providers: https://www.FashionGuide/Documents/Xpert%20Xpress%20SARS%20CoV-2/Fact%20Sheets/302-3802%20SARS-COV -2%20HEALTHCARE%20PROVIDERS%20FACT%20SHEET.pdf Fact Sheet for Healthcare Patients: https://www.Found[employer]/Documents/Xpert %20Xpress%20SARS%20CoV-2/Fact%20Sheets/302-3801%41IBCN-JML-5%20PATIENT%20FACT%20 SHEET.pdfBAUOFL [facility] METABOLIC [id number] 04:40:47 Test Item Value Reference Range Interpretation Comments SODIUM (BEAKER) (test 146 meq/L 135-148 code = 381) POTASSIUM (BEAKER) 2.7 meq/L 3.6-5.5 L (test code = 379) CHLORIDE (BEAKER) 92 meq/L 98-106 L (test code = 382) CO2 (BEAKER) (test 43 meq/L 20-29 HH code = 355) BLOOD UREA NITROGEN 27 mg/dL 10-26 H (BEAKER) (test code = 354) CREATININE (BEAKER) 0.81 mg/dL 0.50-1.20 (test code = 358) GLUCOSE RANDOM 84 mg/dL 70-110 (BEAKER) (test code = 652) CALCIUM (BEAKER) 9.3 mg/dL 8.5-10.5 (test code = 697) EGFR (BEAKER) (test INSUFFIC IENT CLINICAL code = 1092) DATA TO CALCULA TE ESTIMATED GFR. Plating Inspector ID - [id number] ID - [id number] ID - [id number] ID - [id number] ID - avyvvwwct644Jmnyqayt ID - zrazahzbg471Sbjgzckg ID - [id number] ID - [id number] ID - fcnkhuiyc012Ymdwxmzr ID - [id number] 04:40:18 Test Item Value Reference Range Interpretation Comments MAGNESIUM (BEAKER) (test code = 2.2 mg/dL 1.5-3.0 627) Plating Inspector ID - [id number] ID - bikjyqrvf737Phwcblbh ID - [id number] ID - [id number] 04:37:39 Test Item Value Reference Range Interpretation Comments PHOSPHORUS (BEAKER) (test code = 4.1 mg/dL 2.5-4.5 604) Plating Inspector ID - [id number] W/PLT COUNT & AUTO [id number] 04:25:04 Test Item Value Reference Range Interpretation Comments WHITE BLOOD CELL COUNT (BEAKER) 9.0 K/ L 4.0-10.0 (test code = 775) RED BLOOD CELL COUNT (BEAKER) 4.39 M/ L 4.00-5.00 (test code = 761) HEMOGLOBIN (BEAKER) (test code = 10.1 GM/DL 12.0-15.5 L 410) HEMATOCRIT (BEAKER) (test code = 35.2 % 36.0-46.0 L 411) MEAN CORPUSCULAR VOLUME (BEAKER) 80.2 fL 82.0-99.0 L (test code = 753) MEAN CORPUSCULAR HEMOGLOBIN 23.0 pg 27.0-33.0 L (BEAKER) (test code = 751) MEAN CORPUSCULAR HEMOGLOBIN CONC 28.7 GM/DL 32.0-36.0 L (BEAKER) (test code = 752) RED CELL DISTRIBUTION WIDTH 18.7 % 12.0-15.0 H (BEAKER) (test code = 412) PLATELET COUNT (BEAKER) (test 418 K/CU MM 150-430 code = 756) MEAN PLATELET VOLUME (BEAKER) 9.7 fL 6.0-11.5 (test code = 754) NUCLEATED RED BLOOD CELLS 0 /100 WBC 0-0 (BEAKER) (test code = 413) NEUTROPHILS RELATIVE PERCENT 73 % (BEAKER) (test code = 429) LYMPHOCYTES RELATIVE PERCENT 15 % (BEAKER) (test code = 430) MONOCYTES RELATIVE PERCENT 8 % (BEAKER) (test code = 431) EOSINOPHILS RELATIVE PERCENT 4 % (BEAKER) (test code = 432) BASOPHILS RELATIVE PERCENT 1 % (BEAKER) (test code = 437) NEUTROPHILS ABSOLUTE COUNT 6.53 K/ L 1.80-8.00 (BEAKER) (test code = 670) LYMPHOCYTES ABSOLUTE COUNT 1.33 K/ L 1.48-4.50 L (BEAKER) (test code = 414) MONOCYTES ABSOLUTE COUNT (BEAKER) 0.70 K/ L 0.00-1.30 (test code = 415) EOSINOPHILS ABSOLUTE COUNT 0.31 K/ L 0.00-0.50 (BEAKER) (test code = 416) BASOPHILS ABSOLUTE COUNT (BEAKER) 0.05 K/ L 0.00-0.20 (test code = 417) IMMATURE GRANULOCYTES-RELATIVE 0 % 0-0 PERCENT (BEAKER) (test code = 2801) RAD, CHEST, 1 VIEW, NON [id number] 03:45:00Reason for exam:->[facility] : 1975 Sex: FFINAL REPORT CLINICAL INDICATION: RF Comparison: 03/24/2022 The cardiomediastinal contours are stable. The lung volumes are stable after extubation. Central pulmonary vascular congestion and bilateral parenchymal and pleural opacities are unchanged. There is no pneumothorax. A right IJ CVC remains in place. Signed: Sunshine Zambrano MDReport Verified Date/Time: 03/25/2022 03:45:57 POCT-GLUCOSE [id number] 00:03:05 Test Item Value Reference Range Interpretation Comments POC-GLUCOSE METER 83 mg/dL 70-110 : Notified RN/MD: TESTED (BEAKER) (test code = AT SLS L [address]) [facility] [id number]: Plating Inspector/Techni hermes ID = [id number] for Latia Clark BASIC METABOLIC [id number] 22:31:52 Test Item Value Reference Range Interpretation Comments SODIUM (BEAKER) (test 148 meq/L 135-148 code = 381) POTASSIUM (BEAKER) 3.1 meq/L 3.6-5.5 L (test code = 379) CHLORIDE (BEAKER) 93 meq/L 98-106 L (test code = 382) CO2 (BEAKER) (test 43 meq/L 20-29 HH code = 355) BLOOD UREA NITROGEN 31 mg/dL 10-26 H (BEAKER) (test code = 354) CREATININE (BEAKER) 0.82 mg/dL 0.50-1.20 (test code = 358) GLUCOSE RANDOM 93 mg/dL 70-110 (BEAKER) (test code = 652) CALCIUM (BEAKER) 9.2 mg/dL 8.5-10.5 (test code = 697) EGFR (BEAKER) (test INSUFFIC IENT CLINICAL code = 1092) DATA TO CALCULA TE ESTIMATED GFR. Plating Inspector ID - [id number] ID - [id number] ID - [id number] ID - [id number] ID - [id number] ID - [id number] ID - [id number] ID - [id number] ID - [id number] ID - [id number] ID - [id number] ID - [id number] ID - [id number] METABOLIC [id number] 15:34:59 Test Item Value Reference Range Interpretation Comments SODIUM (BEAKER) (test 148 meq/L 135-148 code = 381) POTASSIUM (BEAKER) 3.2 meq/L 3.6-5.5 L Specimen slightly (test code = 379) hemolyzed CHLORIDE (BEAKER) 94 meq/L 98-106 L (test code = 382) CO2 (BEAKER) (test 42 meq/L 20-29 HH code = 355) BLOOD UREA NITROGEN 34 mg/dL 10-26 H (BEAKER) (test code = 354) CREATININE (BEAKER) 0.85 mg/dL 0.50-1.20 Specimen slightly (test code = 358) hemolyzed GLUCOSE RANDOM 111 mg/dL 70-110 H (BEAKER) (test code = 652) CALCIUM (BEAKER) 9.0 mg/dL 8.5-10.5 (test code = 697) EGFR (BEAKER) (test INSUFFIC IENT CLINICAL code = 1092) DATA TO CALCULA TE ESTIMATED GFR. Plating Inspector ID - DSENSONOperator ID - DSENSONOperator ID - DSENSONOperator ID - DSENSONOperator ID - DSENSONOperator ID - DSENSONOperator ID - DSENSONOperator ID - DSENSONOperator ID - DSENSONOperator ID - DSENSONOperator ID - DSENSONOperator ID - DSENSONOperator ID - [id number] ID - [id number] GAS, [id number] 13:09:46 Test Item Value Reference Range Interpretation Comments PH ARTERIAL (BEAKER) (test code = 7.46 7.35-7.45 H 383) PCO2 ARTERIAL (BEAKER) (test code 65 mm Hg 35-45 H = 384) PO2 ARTERIAL (BEAKER) (test code 77 mm Hg 80-90 L = 385) O2 SATURATION ARTERIAL (BEAKER) 95.5 % 96.0-97.0 L (test code = 386) HCO3 ARTERIAL (BEAKER) (test code 45 mmol/L 21-29 HH = 388) BASE EXCESS ARTERIAL (BEAKER) 18.4 mmol/L -2.0-3.0 H (test code = 387) PATIENT TEMPERATURE (BEAKER) 37.0 (test code = 1818) FIO2 (BEAKER) (test code = 1819) 50.0 VANCOMYCIN LEVEL, [id number] 05:27:09 Test Item Value Reference Range Interpretation Comments VANCOMYCIN TROUGH (BEAKER) (test 21.2 ug/mL 10.0-20.0 H code = 522) Plating Inspector ID - [id number] METABOLIC [id number] 05:10:41 Test Item Value Reference Range Interpretation Comments SODIUM (BEAKER) (test 150 meq/L 135-148 H code = 381) POTASSIUM (BEAKER) 2.8 meq/L 3.6-5.5 L (test code = 379) CHLORIDE (BEAKER) 94 meq/L 98-106 L (test code = 382) CO2 (BEAKER) (test 43 meq/L 20-29 HH code = 355) BLOOD UREA NITROGEN 39 mg/dL 10-26 H (BEAKER) (test code = 354) CREATININE (BEAKER) 0.95 mg/dL 0.50-1.20 (test code = 358) GLUCOSE RANDOM 86 mg/dL 70-110 (BEAKER) (test code = 652) CALCIUM (BEAKER) 9.0 mg/dL 8.5-10.5 (test code = 697) EGFR (BEAKER) (test INSUFFIC IENT CLINICAL code = 1092) DATA TO CALCULA TE ESTIMATED GFR. Plating Inspector ID - JUSTINOperator ID - JUSTINOperator ID - JUSTINOperator ID - JUSTINOperator ID - JUSTINOperator ID - JUSTINOperator ID - JUSTINOperator ID - JUSTINOperator ID - JUSTINOperator ID - JUSTINOperator ID - JUSTINMAGNESIUM 2022-03-24 04:50:15 Test Item Value Reference Range Interpretation Comments MAGNESIUM (BEAKER) (test code = 2.3 mg/dL 1.5-3.0 627) Plating Inspector ID - JUSTINOperator ID - JUSTINOperator ID - JUSTINOperator ID - ROBERTO [id number] 04:47:29 Test Item Value Reference Range Interpretation Comments PHOSPHORUS (BEAKER) (test code = 4.1 mg/dL 2.5-4.5 604) Plating Inspector ID - JUSTINBLOOD GAS, [id number] 04:32:46 Test Item Value Reference Range Interpretation Comments PH ARTERIAL (BEAKER) (test code = 7.48 7.35-7.45 H 383) PCO2 ARTERIAL (BEAKER) (test code 64 mm Hg 35-45 H = 384) PO2 ARTERIAL (BEAKER) (test code 95 mm Hg 80-90 H = 385) O2 SATURATION ARTERIAL (BEAKER) 97.4 % 96.0-97.0 H (test code = 386) HCO3 ARTERIAL (BEAKER) (test code 47 mmol/L 21-29 HH = 388) BASE EXCESS ARTERIAL (BEAKER) 21.0 mmol/L -2.0-3.0 H (test code = 387) PATIENT TEMPERATURE (BEAKER) 37.0 (test code = 1818) FIO2 (BEAKER) (test code = 1819) 50.0 CBC W/PLT COUNT & AUTO [id number] 04:22:57 Test Item Value Reference Range Interpretation Comments WHITE BLOOD CELL COUNT (BEAKER) 7.7 K/ L 4.0-10.0 (test code = 775) RED BLOOD CELL COUNT (BEAKER) 3.83 M/ L 4.00-5.00 L (test code = 761) HEMOGLOBIN (BEAKER) (test code = 8.6 GM/DL 12.0-15.5 L 410) HEMATOCRIT (BEAKER) (test code = 31.5 % 36.0-46.0 L 411) MEAN CORPUSCULAR VOLUME (BEAKER) 82.2 fL 82.0-99.0 (test code = 753) MEAN CORPUSCULAR HEMOGLOBIN 22.5 pg 27.0-33.0 L (BEAKER) (test code = 751) MEAN CORPUSCULAR HEMOGLOBIN CONC 27.3 GM/DL 32.0-36.0 L (BEAKER) (test code = 752) RED CELL DISTRIBUTION WIDTH 19.1 % 12.0-15.0 H (BEAKER) (test code = 412) PLATELET COUNT (BEAKER) (test 374 K/CU MM 150-430 code = 756) MEAN PLATELET VOLUME (BEAKER) 10.3 fL 6.0-11.5 (test code = 754) NUCLEATED RED BLOOD CELLS 0 /100 WBC 0-0 (BEAKER) (test code = 413) NEUTROPHILS RELATIVE PERCENT 67 % (BEAKER) (test code = 429) LYMPHOCYTES RELATIVE PERCENT 21 % (BEAKER) (test code = 430) MONOCYTES RELATIVE PERCENT 9 % (BEAKER) (test code = 431) EOSINOPHILS RELATIVE PERCENT 2 % (BEAKER) (test code = 432) BASOPHILS RELATIVE PERCENT 1 % (BEAKER) (test code = 437) NEUTROPHILS ABSOLUTE COUNT 5.16 K/ L 1.80-8.00 (BEAKER) (test code = 670) LYMPHOCYTES ABSOLUTE COUNT 1.58 K/ L 1.48-4.50 (BEAKER) (test code = 414) MONOCYTES ABSOLUTE COUNT (BEAKER) 0.69 K/ L 0.00-1.30 (test code = 415) EOSINOPHILS ABSOLUTE COUNT 0.16 K/ L 0.00-0.50 (BEAKER) (test code = 416) BASOPHILS ABSOLUTE COUNT (BEAKER) 0.07 K/ L 0.00-0.20 (test code = 417) IMMATURE GRANULOCYTES-RELATIVE 0 % 0-0 PERCENT (BEAKER) (test code = 2801) RAD, CHEST, 1 VIEW, NON [id number] 03:23:00Reason for exam:->[facility] : 1975 Sex: FFINAL REPORT CLINICAL INDICATION: RF Comparison: 03/23/2022 The cardiomediastinal contours are stable. The lung volumes remain low. Central pulmonary vascular congestion and bilateral parenchymal and pleural opacities are unchanged. There is no pneumothorax. Support lines are stable. Signed: Sunshine Zambrano Verified Date/Time: 03/24/2022 03:23:14 POCT- GLUCOSE [id number] 00:06:41 Test Item Value Reference Range Interpretation Comments POC-GLUCOSE METER 91 mg/dL 70-110 : TESTED A T [facility] [address] (BEAKER) (test code = [address]) [facility] [address]: Plating Inspector/Techni hermes ID = [id number] for William Navarro BASIC METABOLIC [id number] 21:56:46 Test Item Value Reference Range Interpretation Comments SODIUM (BEAKER) (test 151 meq/L 135-148 H code = 381) POTASSIUM (BEAKER) 2.8 meq/L 3.6-5.5 L (test code = 379) CHLORIDE (BEAKER) 93 meq/L 98-106 L (test code = 382) CO2 (BEAKER) (test 44 meq/L 20-29 HH code = 355) BLOOD UREA NITROGEN 40 mg/dL 10-26 H (BEAKER) (test code = 354) CREATININE (BEAKER) 0.88 mg/dL 0.50-1.20 (test code = 358) GLUCOSE RANDOM 94 mg/dL 70-110 (BEAKER) (test code = 652) CALCIUM (BEAKER) 9.0 mg/dL 8.5-10.5 (test code = 697) EGFR (BEAKER) (test INSUFFIC IENT CLINICAL code = 1092) DATA TO CALCULA TE ESTIMATED GFR. Plating Inspector ID - ONYINYEOperator ID - ONYINYEOperator ID - ONYINYEOperator ID - ONYINYEOperator ID - ONYINYEOperator ID - ONYINYEOperator ID - ONYINYEOperator ID - ONYINYEOperator ID - ONYINYEOperator ID - ONYINYEOperator ID - ONYINYEOperator ID - ONYINYEOperator ID - ONYINYEBASIC METABOLIC [id number] 13:21:30 Test Item Value Reference Range Interpretation Comments SODIUM (BEAKER) (test 149 meq/L 135-148 H code = 381) POTASSIUM (BEAKER) 4.6 meq/L 3.6-5.5 (test code = 379) CHLORIDE (BEAKER) 98 meq/L 98-106 (test code = 382) CO2 (BEAKER) (test 44 meq/L 20-29 HH code = 355) BLOOD UREA NITROGEN 38 mg/dL 10-26 H (BEAKER) (test code = 354) CREATININE (BEAKER) 0.95 mg/dL 0.50-1.20 (test code = 358) GLUCOSE RANDOM 109 mg/dL 70-110 (BEAKER) (test code = 652) CALCIUM (BEAKER) 8.9 mg/dL 8.5-10.5 (test code = 697) EGFR (BEAKER) (test INSUFFIC IENT CLINICAL code = 1092) DATA TO CALCULA TE ESTIMATED GFR. Plating Inspector ID - [id number] ID - [id number] ID - ENUSQOSOW442Nohapask ID - XLLNNQITO491Zwoaoxox ID - [id number] ID - MEJBGAEPH325Kjkuosys ID - YTQVWPUJR215Zuomadju ID - LAXQLDWTB283Hwdqdpnf ID - CFBJTHEXT103Qlmlcgil ID - EUWCBISEE581Jxdjhaku ID - BZIFSFHUA796Grdzbviy ID - NQPNWBWKA527Xvrfcqtc ID - MZIAGEBJA403EALR-LHHEWMM [id number] 13:12:47 Test Item Value Reference Range Interpretation Comments POC-GLUCOSE METER 101 mg/dL 70-110 : TESTED A T [facility] [address] (BEAKER) [facility] [address] [address]: Plating Inspector/Techni hermes ID = [id number] for Suhail ham, Vinitha RAD, CHEST, 1 VIEW, NON [id number] 05:58:00Reason for exam:->[facility] : 1975 Sex: FFINAL REPORT RAD, CHEST, 1 VIEW, NON DEPT INDICATION: RF COMPARISON: Prior day's exam FINDINGS: Portable frontal view of the chest. IMPRESSION: Support Lines: Central catheter tip overlies the SVC. NG tube descends below the diaphragm. Lungs and pleura: Increased bilateral airspace opacities concerning for multifocal pneumonia versus multifocal edema. Lungs remain hypoinflated. No significant pneumothorax. Heart and mediastinum: Stable contours. Stable surgical changes. Additional findings: None. Signed: Connie Clark Verified Date/Time: 03/23/2022 05:58:32 BLOOD GAS, [id number] 04:45:33 Test Item Value Reference Range Interpretation Comments PH ARTERIAL (BEAKER) (test code = 7.48 7.35-7.45 H 383) PCO2 ARTERIAL (BEAKER) (test code 63 mm Hg 35-45 H = 384) PO2 ARTERIAL (BEAKER) (test code 83 mm Hg 80-90 = 385) O2 SATURATION ARTERIAL (BEAKER) 96.2 % 96.0-97.0 (test code = 386) HCO3 ARTERIAL (BEAKER) (test code 45 mmol/L 21-29 HH = 388) BASE EXCESS ARTERIAL (BEAKER) 19.2 mmol/L -2.0-3.0 H (test code = 387) PATIENT TEMPERATURE (BEAKER) 37.5 (test code = 1818) FIO2 (BEAKER) (test code = 1819) 50.0 BASIC METABOLIC [id number] 04:26:01 Test Item Value Reference Range Interpretation Comments SODIUM (BEAKER) (test 151 meq/L 135-148 H code = 381) POTASSIUM (BEAKER) 3.1 meq/L 3.6-5.5 L (test code = 379) CHLORIDE (BEAKER) 97 meq/L 98-106 L (test code = 382) CO2 (BEAKER) (test 44 meq/L 20-29 HH code = 355) BLOOD UREA NITROGEN 41 mg/dL 10-26 H (BEAKER) (test code = 354) CREATININE (BEAKER) 1.02 mg/dL 0.50-1.20 (test code = 358) GLUCOSE RANDOM 125 mg/dL 70-110 H (BEAKER) (test code = 652) CALCIUM (BEAKER) 9.2 mg/dL 8.5-10.5 (test code = 697) EGFR (BEAKER) (test INSUFFIC IENT CLINICAL code = 1092) DATA TO CALCULA TE ESTIMATED GFR. Plating Inspector ID - [id number] ID - [id number] ID - [id number] ID - RFULSTPDC935Ppjiqiuf ID - [id number] ID - YZZMOKQZO496Fdkltfor ID - JULVCFMOT105Ektcokkg ID - XNGCIXKQI577Qzoljrod ID - HVQWBULZZ524Nzwjzbmu ID - [id number] 04:25:02 Test Item Value Reference Range Interpretation Comments MAGNESIUM (BEAKER) (test code = 2.5 mg/dL 1.5-3.0 627) Plating Inspector ID - [id number] ID - AYXEUVNJW937Orppcvtj ID - [id number] ID - [id number] W/PLT COUNT & AUTO DIFFERENTIAL 2022-03-23 04:24:18 Test Item Value Reference Range Interpretation Comments WHITE BLOOD CELL COUNT (BEAKER) 7.6 K/ L 4.0-10.0 (test code = 775) RED BLOOD CELL COUNT (BEAKER) 3.73 M/ L 4.00-5.00 L (test code = 761) HEMOGLOBIN (BEAKER) (test code = 9.0 GM/DL 12.0-15.5 L 410) HEMATOCRIT (BEAKER) (test code = 30.5 % 36.0-46.0 L 411) MEAN CORPUSCULAR VOLUME (BEAKER) 81.8 fL 82.0-99.0 L (test code = 753) MEAN CORPUSCULAR HEMOGLOBIN 24.1 pg 27.0-33.0 L (BEAKER) (test code = 751) MEAN CORPUSCULAR HEMOGLOBIN CONC 29.5 GM/DL 32.0-36.0 L (BEAKER) (test code = 752) RED CELL DISTRIBUTION WIDTH 19.3 % 12.0-15.0 H (BEAKER) (test code = 412) PLATELET COUNT (BEAKER) (test 359 K/CU MM 150-430 code = 756) MEAN PLATELET VOLUME (BEAKER) 10.3 fL 6.0-11.5 (test code = 754) NUCLEATED RED BLOOD CELLS 0 /100 WBC 0-0 (BEAKER) (test code = 413) NEUTROPHILS RELATIVE PERCENT 75 % (BEAKER) (test code = 429) LYMPHOCYTES RELATIVE PERCENT 12 % (BEAKER) (test code = 430) MONOCYTES RELATIVE PERCENT 11 % (BEAKER) (test code = 431) EOSINOPHILS RELATIVE PERCENT 0 % (BEAKER) (test code = 432) BASOPHILS RELATIVE PERCENT 1 % (BEAKER) (test code = 437) NEUTROPHILS ABSOLUTE COUNT 5.71 K/ L 1.80-8.00 (BEAKER) (test code = 670) LYMPHOCYTES ABSOLUTE COUNT 0.94 K/ L 1.48-4.50 L (BEAKER) (test code = 414) MONOCYTES ABSOLUTE COUNT (BEAKER) 0.87 K/ L 0.00-1.30 (test code = 415) EOSINOPHILS ABSOLUTE COUNT 0.00 K/ L 0.00-0.50 (BEAKER) (test code = 416) BASOPHILS ABSOLUTE COUNT (BEAKER) 0.06 K/ L 0.00-0.20 (test code = 417) IMMATURE GRANULOCYTES-RELATIVE 0 % 0-0 PERCENT (BEAKER) (test code = 2801) [id number] 04:22:17 Test Item Value Reference Range Interpretation Comments PHOSPHORUS (BEAKER) (test code = 3.2 mg/dL 2.5-4.5 604) Plating Inspector ID - [id number] METABOLIC [id number] 00:32:12 Test Item Value Reference Range Interpretation Comments SODIUM (BEAKER) (test 151 meq/L 135-148 H code = 381) POTASSIUM (BEAKER) 3.2 meq/L 3.6-5.5 L (test code = 379) CHLORIDE (BEAKER) 97 meq/L 98-106 L (test code = 382) CO2 (BEAKER) (test 43 meq/L 20-29 HH code = 355) BLOOD UREA NITROGEN 42 mg/dL 10-26 H (BEAKER) (test code = 354) CREATININE (BEAKER) 0.97 mg/dL 0.50-1.20 (test code = 358) GLUCOSE RANDOM 118 mg/dL 70-110 H (BEAKER) (test code = 652) CALCIUM (BEAKER) 9.2 mg/dL 8.5-10.5 (test code = 697) EGFR (BEAKER) (test INSUFFIC IENT CLINICAL code = 1092) DATA TO CALCULA TE ESTIMATED GFR. Plating Inspector ID - [id number] ID - [id number] ID - XRORAOQHX992Htamaljg ID - TMDKJYQWJ992Dgbennry ID - SNCJXLAFW747Tbftjsiz ID - QPHJVMTYD783Whkpdron ID - TYGDQYDOT482Zhaztdlg ID - DBSYGKZVQ183Wkpiugwb ID - QXJJIMIQH771Crwlwytd ID - PEJAYLTFO575Dgvwuilc ID - EPUMRXOTA526Rqrhqarq ID - LYJKWCFKC732Qpmmfojj ID - IHVSMGJQF179VYHQ-LZSNGSK [id number] 00:07:29 Test Item Value Reference Range Interpretation Comments POC-GLUCOSE METER 85 mg/dL 70-110 : TESTED A T [facility] [address] (BEAKER) (test code = [address]) [facility] [address]: Plating Inspector/Techni hermes ID = [id number] for Yvette inIsaiah BASIC METABOLIC [id number] 20:24:19 Test Item Value Reference Range Interpretation Comments SODIUM (BEAKER) (test 150 meq/L 135-148 H code = 381) POTASSIUM (BEAKER) 3.3 meq/L 3.6-5.5 L (test code = 379) CHLORIDE (BEAKER) 96 meq/L 98-106 L (test code = 382) CO2 (BEAKER) (test 41 meq/L 20-29 HH code = 355) BLOOD UREA NITROGEN 31 mg/dL 10-26 H (BEAKER) (test code = 354) CREATININE (BEAKER) 1.03 mg/dL 0.50-1.20 (test code = 358) GLUCOSE RANDOM 139 mg/dL 70-110 H (BEAKER) (test code = 652) CALCIUM (BEAKER) 9.2 mg/dL 8.5-10.5 (test code = 697) EGFR (BEAKER) (test INSUFFIC IENT CLINICAL code = 1092) DATA TO CALCULA TE ESTIMATED GFR. Plating Inspector ID - ONYINYEOperator ID - ONYINYEOperator ID - ONYINYEOperator ID - ONYINYEOperator ID - ONYINYEOperator ID - ONYINYEOperator ID - ONYINYEOperator ID - ONYINYEOperator ID - ONYINYEOperator ID - ONYINYEOperator ID - ONYINYEOperator ID - ONYINYEOperator ID - ONYINYEPOCT-GLUCOSE [id number] 17:53:17 Test Item Value Reference Range Interpretation Comments POC-GLUCOSE METER 139 mg/dL 70-110 H : Notified RN/MD: TESTED (BEAKER) (test code AT [facility] [address] = [address]) [facility] [address]: Plating Inspector/Techni hermes ID = [id number] for Sanju Smith BLOOD [id number] 16:01:30 Test Item Value Reference Range Interpretation Comments CULTURE (BEAKER) (test No growth in 5 days code = 1095) BLOOD [id number] 16:01:30 Test Item Value Reference Range Interpretation Comments CULTURE (BEAKER) (test No growth in 5 days code = 1095) BASIC METABOLIC [id number] 12:55:36 Test Item Value Reference Range Interpretation Comments SODIUM (BEAKER) (test 149 meq/L 135-148 H code = 381) POTASSIUM (BEAKER) 3.9 meq/L 3.6-5.5 (test code = 379) CHLORIDE (BEAKER) 98 meq/L 98-106 (test code = 382) CO2 (BEAKER) (test 40 meq/L 20-29 HH code = 355) BLOOD UREA NITROGEN 42 mg/dL 10-26 H (BEAKER) (test code = 354) CREATININE (BEAKER) 1.04 mg/dL 0.50-1.20 (test code = 358) GLUCOSE RANDOM 145 mg/dL 70-110 H (BEAKER) (test code = 652) CALCIUM (BEAKER) 9.4 mg/dL 8.5-10.5 (test code = 697) EGFR (BEAKER) (test INSUFFIC IENT CLINICAL code = 1092) DATA TO CALCULA TE ESTIMATED GFR. Plating Inspector ID - [id number] ID - vwdq97Wktcdqaj ID - ejwi76Mgxfapop ID - lznu05Ceuexokw ID - xpku71Ffxsrlzo ID - dspz51Dbnmzcfq ID - rgyj28Yzwstngn ID - pkkr34Mtzkuovl ID - lvni10Clxhmllz ID - vnkd33Mbrwocdi ID - djvh75Frhxuoqw ID - tdpz79Dclrnong ID - [id number]-RUNIAQV [id number] 11:53:31 Test Item Value Reference Range Interpretation Comments POC-GLUCOSE METER 136 mg/dL 70-110 H : Notified RN/MD: TESTED (BEAKER) (test code AT [facility] [address] = [address]) [facility] [address]: Plating Inspector/Techni hermes ID = [id number] for Sanju Smith BLOOD GAS, [id number] 08:57:41 Test Item Value Reference Range Interpretation Comments PH ARTERIAL (BEAKER) (test code = 7.38 7.35-7.45 383) PCO2 ARTERIAL (BEAKER) (test code 71 mm Hg 35-45 HH = 384) PO2 ARTERIAL (BEAKER) (test code 81 mm Hg 80-90 = 385) O2 SATURATION ARTERIAL (BEAKER) 95.0 % 96.0-97.0 L (test code = 386) HCO3 ARTERIAL (BEAKER) (test code 41 mmol/L 21-29 HH = 388) BASE EXCESS ARTERIAL (BEAKER) 13.9 mmol/L -2.0-3.0 H (test code = 387) PATIENT TEMPERATURE (BEAKER) 37.5 (test code = 1818) FIO2 (BEAKER) (test code = 1819) 50.0 RAD, CHEST, 1 VIEW, NON [id number] 07:36:00Reason for exam:->[facility] : 1975 Sex: FFINAL REPORT RAD, CHEST, 1 VIEW, NON DEPT INDICATION: RF COMPARISON: Prior day's exam FINDINGS: Portable frontal view of the chest. IMPRESSION: Support Lines: ET tube tip is 3 cm superior to trae. NG tube descends below the diaphragm. Right-sided central catheter tipoverlies the atriocaval junction. Lungs and pleura: Mild bibasilar atelectasis. No significant pneumothorax. Heart and mediastinum: Stable contours. Additional findings: None. Signed: Connie Clark Verified Date/Time: 03/22/2022 07:36:27 OMYCIN LEVEL, [id number] 04:46:31 Test Item Value Reference Range Interpretation Comments VANCOMYCIN TROUGH (BEAKER) (test 18.9 ug/mL 10.0-20.0 code = 522) Plating Inspector ID - [id number] METABOLIC [id number] 04:23:09 Test Item Value Reference Range Interpretation Comments SODIUM (BEAKER) (test 151 meq/L 135-148 H code = 381) POTASSIUM (BEAKER) 3.3 meq/L 3.6-5.5 L (test code = 379) CHLORIDE (BEAKER) 98 meq/L 98-106 (test code = 382) CO2 (BEAKER) (test 41 meq/L 20-29 HH code = 355) BLOOD UREA NITROGEN 46 mg/dL 10-26 H (BEAKER) (test code = 354) CREATININE (BEAKER) 1.10 mg/dL 0.50-1.20 (test code = 358) GLUCOSE RANDOM 98 mg/dL 70-110 (BEAKER) (test code = 652) CALCIUM (BEAKER) 9.5 mg/dL 8.5-10.5 (test code = 697) EGFR (BEAKER) (test INSUFFIC IENT CLINICAL code = 1092) DATA TO CALCULA TE ESTIMATED GFR. Plating Inspector ID - [id number] ID - coro04Zrhevihr ID - mmvn09Gwmyleja ID - phxr86Jpfstcrk ID - yqil59Fmclsgex ID - rjlq66Apcffety ID - hukq02Wxvlprsv ID - jlsa62Cooqghti ID - mxhz21Jkibnpjk ID - [id number] 03:27:50 Test Item Value Reference Range Interpretation Comments MAGNESIUM (BEAKER) (test code = 2.4 mg/dL 1.5-3.0 627) Plating Inspector ID - [id number] ID - zhld34Ialsaznj ID - kjua75Cdfzjdmx ID - [id number] 03:25:04 Test Item Value Reference Range Interpretation Comments PHOSPHORUS (BEAKER) (test code = 3.8 mg/dL 2.5-4.5 604) Plating Inspector ID - [id number] W/PLT COUNT & AUTO [id number] 03:15:24 Test Item Value Reference Range Interpretation Comments WHITE BLOOD CELL COUNT (BEAKER) 8.8 K/ L 4.0-10.0 (test code = 775) RED BLOOD CELL COUNT (BEAKER) 3.87 M/ L 4.00-5.00 L (test code = 761) HEMOGLOBIN (BEAKER) (test code = 8.9 GM/DL 12.0-15.5 L 410) HEMATOCRIT (BEAKER) (test code = 32.6 % 36.0-46.0 L 411) MEAN CORPUSCULAR VOLUME (BEAKER) 84.2 fL 82.0-99.0 (test code = 753) MEAN CORPUSCULAR HEMOGLOBIN 23.0 pg 27.0-33.0 L (BEAKER) (test code = 751) MEAN CORPUSCULAR HEMOGLOBIN CONC 27.3 GM/DL 32.0-36.0 L (BEAKER) (test code = 752) RED CELL DISTRIBUTION WIDTH 19.3 % 12.0-15.0 H (BEAKER) (test code = 412) PLATELET COUNT (BEAKER) (test 333 K/CU MM 150-430 code = 756) MEAN PLATELET VOLUME (BEAKER) 9.9 fL 6.0-11.5 (test code = 754) NUCLEATED RED BLOOD CELLS 0 /100 WBC 0-0 (BEAKER) (test code = 413) NEUTROPHILS RELATIVE PERCENT 71 % (BEAKER) (test code = 429) LYMPHOCYTES RELATIVE PERCENT 14 % (BEAKER) (test code = 430) MONOCYTES RELATIVE PERCENT 11 % (BEAKER) (test code = 431) EOSINOPHILS RELATIVE PERCENT 3 % (BEAKER) (test code = 432) BASOPHILS RELATIVE PERCENT 1 % (BEAKER) (test code = 437) NEUTROPHILS ABSOLUTE COUNT 6.22 K/ L 1.80-8.00 (BEAKER) (test code = 670) LYMPHOCYTES ABSOLUTE COUNT 1.19 K/ L 1.48-4.50 L (BEAKER) (test code = 414) MONOCYTES ABSOLUTE COUNT (BEAKER) 0.93 K/ L 0.00-1.30 (test code = 415) EOSINOPHILS ABSOLUTE COUNT 0.29 K/ L 0.00-0.50 (BEAKER) (test code = 416) BASOPHILS ABSOLUTE COUNT (BEAKER) 0.05 K/ L 0.00-0.20 (test code = 417) IMMATURE GRANULOCYTES-RELATIVE 1 % 0-0 H PERCENT (BEAKER) (test code = 2801) POCT-GLUCOSE [id number] 23:56:22 Test Item Value Reference Range Interpretation Comments POC-GLUCOSE METER 85 mg/dL 70-110 : TESTED A T [facility] 1317 (BEAKER) (test code = [facility] 77 478: Plating Inspector/Techni hermes ID = [id number] for William Navarro BASIC METABOLIC [id number] 21:16:18 Test Item Value Reference Range Interpretation Comments SODIUM (BEAKER) (test 150 meq/L 135-148 H code = 381) POTASSIUM (BEAKER) 3.3 meq/L 3.6-5.5 L (test code = 379) CHLORIDE (BEAKER) 96 meq/L 98-106 L (test code = 382) CO2 (BEAKER) (test 41 meq/L 20-29 HH code = 355) BLOOD UREA NITROGEN 36 mg/dL 10-26 H (BEAKER) (test code = 354) CREATININE (BEAKER) 1.05 mg/dL 0.50-1.20 (test code = 358) GLUCOSE RANDOM 100 mg/dL 70-110 (BEAKER) (test code = 652) CALCIUM (BEAKER) 9.0 mg/dL 8.5-10.5 (test code = 697) EGFR (BEAKER) (test INSUFFIC IENT CLINICAL code = 1092) DATA TO CALCULA TE ESTIMATED GFR. Plating Inspector ID - [id number] ID - [id number] ID - [id number] ID - [id number] ID - [id number] ID - [id number] ID - [id number] ID - [id number] ID - [id number] ID - [id number] 21:15:16 Test Item Value Reference Range Interpretation Comments MAGNESIUM (BEAKER) (test code = 2.3 mg/dL 1.5-3.0 627) Plating Inspector ID - [id number] ID - [id number] ID - [id number] ID - [id number] 21:12:33 Test Item Value Reference Range Interpretation Comments PHOSPHORUS (BEAKER) (test code = 4.0 mg/dL 2.5-4.5 604) Plating Inspector ID - [id number] 17:37:55 Test Item Value Reference Range Interpretation Comments POC-GLUCOSE METER 118 mg/dL 70-110 H : TESTED A T [facility] 1317 (BEAKER) (test code [address], = 1538) [facility] 77 478: Plating Inspector/Techni hermes ID = [id number] for Amalia Sandoval BASIC METABOLIC [id number] 14:20:49 Test Item Value Reference Range Interpretation Comments SODIUM (BEAKER) (test 148 meq/L 135-148 code = 381) POTASSIUM (BEAKER) 2.9 meq/L 3.6-5.5 L (test code = 379) CHLORIDE (BEAKER) 96 meq/L 98-106 L (test code = 382) CO2 (BEAKER) (test 40 meq/L 20-29 HH code = 355) BLOOD UREA NITROGEN 42 mg/dL 10-26 H (BEAKER) (test code = 354) CREATININE (BEAKER) 1.14 mg/dL 0.50-1.20 (test code = 358) GLUCOSE RANDOM 135 mg/dL 70-110 H (BEAKER) (test code = 652) CALCIUM (BEAKER) 9.4 mg/dL 8.5-10.5 (test code = 697) EGFR (BEAKER) (test INSUFFIC IENT CLINICAL code = 1092) DATA TO CALCULA TE ESTIMATED GFR. Plating Inspector ID - LITOOperator ID - LITOOperator ID - LITOOperator ID - LITOOperator ID - LITOOperator ID - LITOOperator ID - LITOOperator ID - LITOOperator ID - LITOOperator ID - [id number] 14:04:46 Test Item Value Reference Range Interpretation Comments MAGNESIUM (BEAKER) (test code = 2.3 mg/dL 1.5-3.0 627) Plating Inspector ID - LITOOperator ID - LITOOperator ID - LITOOperator ID - MICHAEL [id number] 14:02:12 Test Item Value Reference Range Interpretation Comments PHOSPHORUS (BEAKER) (test code = 4.0 mg/dL 2.5-4.5 604) Plating Inspector ID - LITOPOCT-GLUCOSE [id number] 13:56:14 Test Item Value Reference Range Interpretation Comments POC-GLUCOSE METER 117 mg/dL 70-110 H : TESTED A T [facility] 1317 (BEAKER) (test code [facility] [address], = 1538) [facility] 77 478: Plating Inspector/Techni hermes ID = [id number] for Joshua Stringer BLOOD GAS, [id number] 11:02:30 Test Item Value Reference Range Interpretation Comments PH ARTERIAL (BEAKER) (test code = 7.44 7.35-7.45 383) PCO2 ARTERIAL (BEAKER) (test code 61 mm Hg 35-45 H = 384) PO2 ARTERIAL (BEAKER) (test code 170 mm Hg 80-90 H = 385) O2 SATURATION ARTERIAL (BEAKER) 99.2 % 96.0-97.0 H (test code = 386) HCO3 ARTERIAL (BEAKER) (test code 41 mmol/L 21-29 HH = 388) BASE EXCESS ARTERIAL (BEAKER) 14.7 mmol/L -2.0-3.0 H (test code = 387) PATIENT TEMPERATURE (BEAKER) 37.0 (test code = 1818) FIO2 (BEAKER) (test code = 1819) 50.0 BASIC METABOLIC [id number] 05:10:48 Test Item Value Reference Range Interpretation Comments SODIUM (BEAKER) (test 148 meq/L 135-148 code = 381) POTASSIUM (BEAKER) 2.5 meq/L 3.6-5.5 LL (test code = 379) CHLORIDE (BEAKER) 96 meq/L 98-106 L (test code = 382) CO2 (BEAKER) (test 39 meq/L 20-29 H code = 355) BLOOD UREA NITROGEN 48 mg/dL 10-26 H (BEAKER) (test code = 354) CREATININE (BEAKER) 1.12 mg/dL 0.50-1.20 (test code = 358) GLUCOSE RANDOM 125 mg/dL 70-110 H (BEAKER) (test code = 652) CALCIUM (BEAKER) 9.2 mg/dL 8.5-10.5 (test code = 697) EGFR (BEAKER) (test INSUFFIC IENT CLINICAL code = 1092) DATA TO CALCULA TE ESTIMATED GFR. Plating Inspector ID - LITOOperator ID - LITOOperator ID - LITOOperator ID - LITOOperator ID - LITOOperator ID - LITOOperator ID - LITOOperator ID - LITOOperator ID - LITOOperator ID - [id number] 04:56:26 Test Item Value Reference Range Interpretation Comments MAGNESIUM (BEAKER) (test code = 3.0 mg/dL 1.5-3.0 627) Plating Inspector ID - LITOOperator ID - LITOOperator ID - LITOOperator ID - LITOCBC W/PLT COUNT & AUTO [id number] 04:55:03 Test Item Value Reference Range Interpretation Comments WHITE BLOOD CELL COUNT (BEAKER) 9.0 K/ L 4.0-10.0 (test code = 775) RED BLOOD CELL COUNT (BEAKER) 3.91 M/ L 4.00-5.00 L (test code = 761) HEMOGLOBIN (BEAKER) (test code = 9.0 GM/DL 12.0-15.5 L 410) HEMATOCRIT (BEAKER) (test code = 33.1 % 36.0-46.0 L 411) MEAN CORPUSCULAR VOLUME (BEAKER) 84.7 fL 82.0-99.0 (test code = 753) MEAN CORPUSCULAR HEMOGLOBIN 23.0 pg 27.0-33.0 L (BEAKER) (test code = 751) MEAN CORPUSCULAR HEMOGLOBIN CONC 27.2 GM/DL 32.0-36.0 L (BEAKER) (test code = 752) RED CELL DISTRIBUTION WIDTH 19.5 % 12.0-15.0 H (BEAKER) (test code = 412) PLATELET COUNT (BEAKER) (test 330 K/CU MM 150-430 code = 756) MEAN PLATELET VOLUME (BEAKER) 10.9 fL 6.0-11.5 (test code = 754) NUCLEATED RED BLOOD CELLS 0 /100 WBC 0-0 (BEAKER) (test code = 413) NEUTROPHILS RELATIVE PERCENT 77 % (BEAKER) (test code = 429) LYMPHOCYTES RELATIVE PERCENT 10 % (BEAKER) (test code = 430) MONOCYTES RELATIVE PERCENT 9 % (BEAKER) (test code = 431) EOSINOPHILS RELATIVE PERCENT 3 % (BEAKER) (test code = 432) BASOPHILS RELATIVE PERCENT 0 % (BEAKER) (test code = 437) NEUTROPHILS ABSOLUTE COUNT 6.87 K/ L 1.80-8.00 (BEAKER) (test code = 670) LYMPHOCYTES ABSOLUTE COUNT 0.91 K/ L 1.48-4.50 L (BEAKER) (test code = 414) MONOCYTES ABSOLUTE COUNT (BEAKER) 0.84 K/ L 0.00-1.30 (test code = 415) EOSINOPHILS ABSOLUTE COUNT 0.24 K/ L 0.00-0.50 (BEAKER) (test code = 416) BASOPHILS ABSOLUTE COUNT (BEAKER) 0.03 K/ L 0.00-0.20 (test code = 417) IMMATURE GRANULOCYTES-RELATIVE 1 % 0-0 H PERCENT (BEAKER) (test code = 2801) [id number] 04:53:42 Test Item Value Reference Range Interpretation Comments PHOSPHORUS (BEAKER) (test code = 4.8 mg/dL 2.5-4.5 H 604) Plating Inspector ID - LITOBLOOD GAS, [id number] 03:20:23 Test Item Value Reference Range Interpretation Comments PH ARTERIAL (BEAKER) (test code = 7.35 7.35-7.45 383) PCO2 ARTERIAL (BEAKER) (test code 77 mm Hg 35-45 HH = 384) PO2 ARTERIAL (BEAKER) (test code 70 mm Hg 80-90 L = 385) O2 SATURATION ARTERIAL (BEAKER) 92.4 % 96.0-97.0 L (test code = 386) HCO3 ARTERIAL (BEAKER) (test code 42 mmol/L 21-29 HH = 388) BASE EXCESS ARTERIAL (BEAKER) 13.6 mmol/L -2.0-3.0 H (test code = 387) PATIENT TEMPERATURE (BEAKER) 37.0 (test code = 1818) FIO2 (BEAKER) (test code = 1819) 50.0 RAD, CHEST, 1 VIEW, NON [id number] 01:28:00Reason for exam:->[facility] : 1975 Sex: FFINAL REPORT RAD, CHEST, 1 VIEW, NON DEPT INDICATION: RF COMPARISON: Prior day's exam FINDINGS: Portable frontal view of the chest. IMPRESSION: Small portion of the lungbases are not included within the htbwv-lv-zlte limiting evaluation. Support Lines: Stable. Lungs and pleura: No significant change in bilateral airspace and pleural opacities. No pneumothorax. Heart and mediastinum: Stable contours. Additional findings: None. Signed: Gopal Valencia Verified Date/Time: 03/21/2022 01:28:56 POCT-GLUCOSE [id number] 19:21:26 Test Item Value Reference Range Interpretation Comments POC-GLUCOSE METER 117 mg/dL 70-110 H : TESTED A T [facility] [address] (BEAKER) (test code [address], = 1538) [facility] [address]: Plating Inspector/Techni hermes ID = [id number] for Andria Jacobs [id number] 13:31:04 Test Item Value Reference Range Interpretation Comments POTASSIUM (BEAKER) (test code = 3.6 meq/L 3.6-5.5 379) Plating Inspector ID - DSENSONOperator ID - DSENSONOperator ID - DSENSONOperator ID - DSENSONPOCT-GLUCOSE [id number] 12:19:14 Test Item Value Reference Range Interpretation Comments POC-GLUCOSE METER 119 mg/dL 70-110 H : TESTED A T [facility] (BEAKER) (test code [address], = 1538) [facility] [address]: Plating Inspector/Techni hermes ID = [id number] for Mandeep et, Andria SPUTUM CULTURE + GRAM [id number] 11:37:40 Test Item Value Reference Interpretation Comments Range CULTURE (BEAKER) METHICILLIN A 3+ Methicil branden (test code = 1095) RESISTANT resistant STAPHYLOCOCCUS Staphylococcu s AUREUS aureus Ciprofloxacin (test R code = 7) Clindamycin (test R code = 10) Daptomycin (test code S = 59) Erythromycin (test R code = 4) Gentamicin (test code S = 18) Levofloxacin (test R code = 22) Linezolid (test code S = 40) Moxifloxacin (test I code = 36) Nitrofurantoin (test S code = 23) Oxacillin (test code R = 14) Rifampin (test code = S 43) Tetracycline (test S code = 2) Tigecycline (test S code = 133) Trimethoprim + S Sulfamethoxazole (test code = 47) Vancomycin (test code S = 13) GRAM STAIN RESULT 3+ White blood (BEAKER) (test code = cells seen 1123) GRAM STAIN RESULT 1+ epithelial (BEAKER) (test code = cells 470160) GRAM STAIN RESULT 3+ Mixed alba (BEAKER) (test code = 928938) BLOOD GAS, [id number] 09:55:21 Test Item Value Reference Range Interpretation Comments PH ARTERIAL (BEAKER) (test code = 7.23 7.35-7.45 L 383) PCO2 ARTERIAL (BEAKER) (test code 95 mm Hg 35-45 HH = 384) PO2 ARTERIAL (BEAKER) (test code = 61 mm Hg 80-90 L 385) O2 SATURATION ARTERIAL (BEAKER) 84.6 % 96.0-97.0 L (test code = 386) HCO3 ARTERIAL (BEAKER) (test code 39 mmol/L 21-29 H = 388) BASE EXCESS ARTERIAL (BEAKER) 8.3 mmol/L -2.0-3.0 H (test code = 387) PATIENT TEMPERATURE (BEAKER) (test 37.0 code = 1818) FIO2 (BEAKER) (test code = 1819) 50.0 POCT-GLUCOSE [id number] 06:00:21 Test Item Value Reference Range Interpretation Comments POC-GLUCOSE METER 111 mg/dL 70-110 H : TESTED A T [facility] (BEAKER) (test code [address], = 1538) [facility] [address]: Plating Inspector/Techni hermes ID = [id number] for Katelin Bueno BASIC METABOLIC [id number] 05:12:30 Test Item Value Reference Range Interpretation Comments SODIUM (BEAKER) (test 146 meq/L 135-148 code = 381) POTASSIUM (BEAKER) 2.9 meq/L 3.6-5.5 L (test code = 379) CHLORIDE (BEAKER) 97 meq/L 98-106 L (test code = 382) CO2 (BEAKER) (test 39 meq/L 20-29 H code = 355) BLOOD UREA NITROGEN 40 mg/dL 10-26 H (BEAKER) (test code = 354) CREATININE (BEAKER) 1.08 mg/dL 0.50-1.20 (test code = 358) GLUCOSE RANDOM 120 mg/dL 70-110 H (BEAKER) (test code = 652) CALCIUM (BEAKER) 9.4 mg/dL 8.5-10.5 (test code = 697) EGFR (BEAKER) (test INSUFFIC IENT CLINICAL code = 1092) DATA TO CALCULA TE ESTIMATED GFR. Plating Inspector ID - [id number] ID - [id number] ID - [id number] ID - [id number] ID - [id number] ID - XEUR43Elbdzoqw ID - ETSV00Jekcnyhs ID - [id number] ID - [id number] ID - [id number] 04:51:56 Test Item Value Reference Range Interpretation Comments MAGNESIUM (BEAKER) (test code = 2.5 mg/dL 1.5-3.0 627) Plating Inspector ID - [id number] ID - [id number] ID - [id number] ID - [id number] 04:49:14 Test Item Value Reference Range Interpretation Comments PHOSPHORUS (BEAKER) (test code = 5.2 mg/dL 2.5-4.5 H 604) Plating Inspector ID - [id number] W/PLT COUNT & AUTO [id number] 04:47:50 Test Item Value Reference Range Interpretation Comments WHITE BLOOD CELL COUNT (BEAKER) 11.9 K/ L 4.0-10.0 H (test code = 775) RED BLOOD CELL COUNT (BEAKER) 3.97 M/ L 4.00-5.00 L (test code = 761) HEMOGLOBIN (BEAKER) (test code = 9.1 GM/DL 12.0-15.5 L 410) HEMATOCRIT (BEAKER) (test code = 33.1 % 36.0-46.0 L 411) MEAN CORPUSCULAR VOLUME (BEAKER) 83.4 fL 82.0-99.0 (test code = 753) MEAN CORPUSCULAR HEMOGLOBIN 22.9 pg 27.0-33.0 L (BEAKER) (test code = 751) MEAN CORPUSCULAR HEMOGLOBIN CONC 27.5 GM/DL 32.0-36.0 L (BEAKER) (test code = 752) RED CELL DISTRIBUTION WIDTH 19.9 % 12.0-15.0 H (BEAKER) (test code = 412) PLATELET COUNT (BEAKER) (test 313 K/CU MM 150-430 code = 756) MEAN PLATELET VOLUME (BEAKER) 10.3 fL 6.0-11.5 (test code = 754) NUCLEATED RED BLOOD CELLS 0 /100 WBC 0-0 (BEAKER) (test code = 413) NEUTROPHILS RELATIVE PERCENT 79 % (BEAKER) (test code = 429) LYMPHOCYTES RELATIVE PERCENT 9 % (BEAKER) (test code = 430) MONOCYTES RELATIVE PERCENT 8 % (BEAKER) (test code = 431) EOSINOPHILS RELATIVE PERCENT 3 % (BEAKER) (test code = 432) BASOPHILS RELATIVE PERCENT 0 % (BEAKER) (test code = 437) NEUTROPHILS ABSOLUTE COUNT 9.33 K/ L 1.80-8.00 H (BEAKER) (test code = 670) LYMPHOCYTES ABSOLUTE COUNT 1.11 K/ L 1.48-4.50 L (BEAKER) (test code = 414) MONOCYTES ABSOLUTE COUNT (BEAKER) 0.94 K/ L 0.00-1.30 (test code = 415) EOSINOPHILS ABSOLUTE COUNT 0.35 K/ L 0.00-0.50 (BEAKER) (test code = 416) BASOPHILS ABSOLUTE COUNT (BEAKER) 0.05 K/ L 0.00-0.20 (test code = 417) IMMATURE GRANULOCYTES-RELATIVE 1 % 0-0 H PERCENT (BEAKER) (test code = 2801) BLOOD GAS, [id number] 03:25:36 Test Item Value Reference Range Interpretation Comments PH ARTERIAL (BEAKER) (test code = 7.32 7.35-7.45 L 383) PCO2 ARTERIAL (BEAKER) (test code 79 mm Hg 35-45 HH = 384) PO2 ARTERIAL (BEAKER) (test code 75 mm Hg 80-90 L = 385) O2 SATURATION ARTERIAL (BEAKER) 93.2 % 96.0-97.0 L (test code = 386) HCO3 ARTERIAL (BEAKER) (test code 40 mmol/L 21-29 HH = 388) BASE EXCESS ARTERIAL (BEAKER) 11.1 mmol/L -2.0-3.0 H (test code = 387) PATIENT TEMPERATURE (BEAKER) 37.0 (test code = 1818) FIO2 (BEAKER) (test code = 1819) 50.0 RAD, CHEST, 1 VIEW, NON [id number] 02:39:00Reason for exam:->[facility] : 1975 Sex: FFINAL REPORT RAD, CHEST, 1 VIEW, NON DEPT INDICATION: RF COMPARISON: Prior day's exam FINDINGS: Portable frontal view of the chest. IMPRESSION: Support Lines: Stable. Lungs and pleura: Unchanged bilateral airspace opacities. No new airspace consolidation or sizable effusion. No pneumothorax. Heart and mediastinum: Stable contours. Additional findings: None. Signed: Gopal Pineda Verified Date/Time: 03/20/2022 02:39:09 POCT-GLUCOSE [id number] 23:33:17 Test Item Value Reference Range Interpretation Comments POC-GLUCOSE METER 102 mg/dL 70-110 : TESTED A T [facility] (BEAKER) (test code [address], = 1538) [place] [address]: Plating Inspector/Techni hermes ID = [id number] for Katelin Bueno BLOOD GAS, [id number] 12:43:30 Test Item Value Reference Range Interpretation Comments PH ARTERIAL (BEAKER) (test code = 7.32 7.35-7.45 L 383) PCO2 ARTERIAL (BEAKER) (test code 71 mm Hg 35-45 HH = 384) PO2 ARTERIAL (BEAKER) (test code = 80 mm Hg 80-90 385) O2 SATURATION ARTERIAL (BEAKER) 94.5 % 96.0-97.0 L (test code = 386) HCO3 ARTERIAL (BEAKER) (test code 36 mmol/L 21-29 H = 388) BASE EXCESS ARTERIAL (BEAKER) 7.8 mmol/L -2.0-3.0 H (test code = 387) PATIENT TEMPERATURE (BEAKER) (test 37.0 code = 1818) FIO2 (BEAKER) (test code = 1819) 50.0 POCT-GLUCOSE [id number] 12:30:27 Test Item Value Reference Range Interpretation Comments POC-GLUCOSE METER 122 mg/dL 70-110 H : TESTED A T [facility] [address] (BEAKER) (test code [address], = 1538) [place] [id number]: Plating Inspector/Techni hermes ID = [id number] for Joshua Stringer RAD, CHEST, 1 VIEW, NON [id number] 07:57:00Reason for exam:->[facility] : 1975 Sex: FFINAL REPORT Chest AP portable semierect Comparison exam: 03/18/2022 History provided: Respiratory failure Tube positions unchanged. Heart size magnified by projection. Airspace opacity predominating in the right lower lobe shows no significant change. Signed: Ryland Pierce Verified Date/Time: 03/19/2022 07:57:08 Reading Location: [facility] Radiology Reading Room POCT-GLUCOSE [id number] 06:49:16 Test Item Value Reference Range Interpretation Comments POC-GLUCOSE METER 112 mg/dL 70-110 H : TESTED A T [facility] [address]17 (BEAKER) (test code [address], = 1538) [facility] [address]: Plating Inspector/Techni hermes ID = [id number] for Katelin Bueno BLOOD GAS, [id number] 06:19:32 Test Item Value Reference Range Interpretation Comments PH ARTERIAL (BEAKER) (test code = 7.41 7.35-7.45 383) PCO2 ARTERIAL (BEAKER) (test code 55 mm Hg 35-45 H = 384) PO2 ARTERIAL (BEAKER) (test code = 69 mm Hg 80-90 L 385) O2 SATURATION ARTERIAL (BEAKER) 93.6 % 96.0-97.0 L (test code = 386) HCO3 ARTERIAL (BEAKER) (test code 34 mmol/L 21-29 H = 388) BASE EXCESS ARTERIAL (BEAKER) 8.2 mmol/L -2.0-3.0 H (test code = 387) PATIENT TEMPERATURE (BEAKER) (test 37.0 code = 1818) FIO2 (BEAKER) (test code = 1819) 50.0 BASIC METABOLIC [id number] 03:44:06 Test Item Value Reference Range Interpretation Comments SODIUM (BEAKER) (test 146 meq/L 135-148 code = 381) POTASSIUM (BEAKER) 3.7 meq/L 3.6-5.5 (test code = 379) CHLORIDE (BEAKER) 102 meq/L 98-106 (test code = 382) CO2 (BEAKER) (test 35 meq/L 20-29 H code = 355) BLOOD UREA NITROGEN 35 mg/dL 10-26 H (BEAKER) (test code = 354) CREATININE (BEAKER) 1.11 mg/dL 0.50-1.20 (test code = 358) GLUCOSE RANDOM 111 mg/dL 70-110 H (BEAKER) (test code = 652) CALCIUM (BEAKER) 9.1 mg/dL 8.5-10.5 (test code = 697) EGFR (BEAKER) (test INSUFFIC IENT CLINICAL code = 1092) DATA TO CALCULA TE ESTIMATED GFR. Plating Inspector ID - LITOOperator ID - LITOOperator ID - LITOOperator ID - LITOOperator ID - LITOOperator ID - LITOOperator ID - LITOOperator ID - LITOOperator ID - LITOOperator ID - [id number] 03:41:45 Test Item Value Reference Range Interpretation Comments MAGNESIUM (BEAKER) (test code = 2.2 mg/dL 1.5-3.0 627) Plating Inspector ID - LITOOperator ID - LITOOperator ID - LITOOperator ID - MICHAEL [id number] 03:39:08 Test Item Value Reference Range Interpretation Comments PHOSPHORUS (BEAKER) (test code = 3.4 mg/dL 2.5-4.5 604) Plating Inspector ID - LITOCBC W/PLT COUNT & AUTO [id number] 03:30:16 Test Item Value Reference Range Interpretation Comments WHITE BLOOD CELL COUNT (BEAKER) 14.1 K/ L 4.0-10.0 H (test code = 775) RED BLOOD CELL COUNT (BEAKER) 3.73 M/ L 4.00-5.00 L (test code = 761) HEMOGLOBIN (BEAKER) (test code = 8.6 GM/DL 12.0-15.5 L 410) HEMATOCRIT (BEAKER) (test code = 31.3 % 36.0-46.0 L 411) MEAN CORPUSCULAR VOLUME (BEAKER) 83.9 fL 82.0-99.0 (test code = 753) MEAN CORPUSCULAR HEMOGLOBIN 23.1 pg 27.0-33.0 L (BEAKER) (test code = 751) MEAN CORPUSCULAR HEMOGLOBIN CONC 27.5 GM/DL 32.0-36.0 L (BEAKER) (test code = 752) RED CELL DISTRIBUTION WIDTH 20.5 % 12.0-15.0 H (BEAKER) (test code = 412) PLATELET COUNT (BEAKER) (test 281 K/CU MM 150-430 code = 756) MEAN PLATELET VOLUME (BEAKER) 10.3 fL 6.0-11.5 (test code = 754) NUCLEATED RED BLOOD CELLS 0 /100 WBC 0-0 (BEAKER) (test code = 413) NEUTROPHILS RELATIVE PERCENT 81 % (BEAKER) (test code = 429) LYMPHOCYTES RELATIVE PERCENT 7 % (BEAKER) (test code = 430) MONOCYTES RELATIVE PERCENT 9 % (BEAKER) (test code = 431) EOSINOPHILS RELATIVE PERCENT 2 % (BEAKER) (test code = 432) BASOPHILS RELATIVE PERCENT 0 % (BEAKER) (test code = 437) NEUTROPHILS ABSOLUTE COUNT 11.41 K/ L 1.80-8.00 H (BEAKER) (test code = 670) LYMPHOCYTES ABSOLUTE COUNT 1.00 K/ L 1.48-4.50 L (BEAKER) (test code = 414) MONOCYTES ABSOLUTE COUNT (BEAKER) 1.20 K/ L 0.00-1.30 (test code = 415) EOSINOPHILS ABSOLUTE COUNT 0.33 K/ L 0.00-0.50 (BEAKER) (test code = 416) BASOPHILS ABSOLUTE COUNT (BEAKER) 0.04 K/ L 0.00-0.20 (test code = 417) IMMATURE GRANULOCYTES-RELATIVE 1 % 0-0 H PERCENT (BEAKER) (test code = 2801) POCT-GLUCOSE [id number] 00:52:42 Test Item Value Reference Range Interpretation Comments POC-GLUCOSE METER 110 mg/dL 70-110 : TESTED A T [facility] (BEAKER) (test code [address], = 1538) [place] [address]: Plating Inspector/Techni hermes ID = [id number] for Katelin Bueno POCT-GLUCOSE [id number] 17:35:56 Test Item Value Reference Range Interpretation Comments POC-GLUCOSE METER 110 mg/dL 70-110 : TESTED A T [facility] [address] (BEAKER) (test code [address], = 1538) [place] [address]: Plating Inspector/Techni hermes ID = [id number] for MATTHIAS OLSON [id number] 12:56:11 Test Item Value Reference Range Interpretation Comments POTASSIUM (BEAKER) (test code = 4.0 meq/L 3.6-5.5 379) Plating Inspector ID - DSENSONOperator ID - DSENSONOperator ID - DSENSONOperator ID - DSENSONPOCT-GLUCOSE [id number] 12:42:14 Test Item Value Reference Range Interpretation Comments POC-GLUCOSE METER 122 mg/dL 70-110 H : TESTED A T [facility] [address] (BEAKER) (test code [address], = 1538) [place] [address]: Plating Inspector/Techni hermes ID = [id number] for FALA NA, FOLAKEMI RAD, CHEST, 1 VIEW, NON [id number] 09:14:00Reason for exam:->[facility] : 1975 Sex: FFINAL REPORT Exam: RAD, CHEST, 1 VIEW, NON DEPTDate: 03/18/2022 9:11 AM Indication:Respiratory failureComparison: 03/17/2022 FINDINGS: Lines/Tubes/Devices: Overlying EKG leads. Enteric tube in place seen coursing below the diaphragm with the distal tip collimated out of view.Right IJ CVC in place with distal tip projecting over the SVC. Endotracheal tube in place with distal tip measuring 2.1 cm above the trae. Lungs/pleura:Lungs are well inflated. Perihilar predominant airspace opacities, left greater than right. Small left effusion. No pneumothorax. Heart/Mediastinum:Grossly unchanged. Bones/Soft Tissues: No acute osseous abnormality. Upper abdomen: Unremarkable. IMPRESSION:Lines and tubes as above.Perihilar predominant airspace opacities, left greater than right, may represent worsening edema and/or infectious process in appropriate clinical setting.Small left-sided effusion. Signed: Harley Gentile Verified Date/Time: 03/18/2022 09:14:44 Reading Location: [facility] Radiology Reading Room SARS-COV2/RT-PCR ([facility])2022-03-18 09:12:55 Test Item Value Reference Range Interpretation Comments SARS-COV2/RT-PCR Negative Negative The SARS-Co V-2 target (test code = nucleic acids a re not [id number]) detected in thi s specimen. Negative result s do not preclude SARS-C oV-2 infection and s hould not be used as the danisha e basis for patient managem ent decisions. Nega tive results must be combine d with clinical observ ations, patient history , and epidemiological information. A false negativ e result may occur if a spec imen is improperly jennifer ected, transported or handled. This SARS CoV-2 test is a rapid, real-andria e RT-PCR test intended for th e qualitative detection of nu cleic acid from SARS-CoV-2 in a nasopharyngeal swab specimen collected from individuals suspected of CO VID-19 by their healthcar e provider. This test has been authorized by FDA under an EUA for use by authorized laboratories. This test is only authorized for the duration of the declaration that circumstances exist justifying the authorization of emergency use of in vitro diagnostic tests for detection and/or diagnosis of COVID-19 under Section 564(b)(1) of the Federal Food, Drug and Cosmetic Act, 21 U.S.C. 360bbb- 3(b)(1), unless the authorization is terminated or revoked sooner. Fact Sheet for Healthcare Providers: https://www.[employer]/Documents/Xpert%20Xpress%20SARS%20CoV-2/Fact%20Sheets/302-3802%20SARS-COV -2%20HEALTHCARE%20PROVIDERS%20FACT%20SHEET.pdf Fact Sheet for Healthcare Patients: https://www.[employer]/Documents/Xpert %20Xpress%20SARS%20CoV-2/Fact%20Sheets/302-3801%93VEQY-ATE-8%20PATIENT%20FACT%20 SHEET.pdfBLOOD GAS, [id number] 06:45:25 Test Item Value Reference Range Interpretation Comments PH ARTERIAL (BEAKER) (test code = 7.35 7.35-7.45 383) PCO2 ARTERIAL (BEAKER) (test code 69 mm Hg 35-45 H = 384) PO2 ARTERIAL (BEAKER) (test code = 64 mm Hg 80-90 L 385) O2 SATURATION ARTERIAL (BEAKER) 90.7 % 96.0-97.0 L (test code = 386) HCO3 ARTERIAL (BEAKER) (test code 37 mmol/L 21-29 H = 388) BASE EXCESS ARTERIAL (BEAKER) 9.7 mmol/L -2.0-3.0 H (test code = 387) PATIENT TEMPERATURE (BEAKER) (test 37.0 code = 1818) FIO2 (BEAKER) (test code = 1819) 50.0 BASIC METABOLIC [id number] 04:10:00 Test Item Value Reference Range Interpretation Comments SODIUM (BEAKER) (test 145 meq/L 135-148 code = 381) POTASSIUM (BEAKER) 3.2 meq/L 3.6-5.5 L (test code = 379) CHLORIDE (BEAKER) 100 meq/L 98-106 (test code = 382) CO2 (BEAKER) (test 34 meq/L 20-29 H code = 355) BLOOD UREA NITROGEN 32 mg/dL 10-26 H (BEAKER) (test code = 354) CREATININE (BEAKER) 1.06 mg/dL 0.50-1.20 (test code = 358) GLUCOSE RANDOM 118 mg/dL 70-110 H (BEAKER) (test code = 652) CALCIUM (BEAKER) 9.0 mg/dL 8.5-10.5 (test code = 697) EGFR (BEAKER) (test INSUFFIC IENT CLINICAL code = 1092) DATA TO CALCULA TE ESTIMATED GFR. Plating Inspector ID - [id number] ID - [id number] ID - [id number] ID - [id number] ID - [id number] ID - [id number] ID - [id number] ID - [id number] ID - [id number] ID - [id number] 04:09:51 Test Item Value Reference Range Interpretation Comments MAGNESIUM (BEAKER) (test code = 2.0 mg/dL 1.5-3.0 627) Plating Inspector ID - [id number] ID - [id number] ID - [id number] ID - [id number] 04:06:49 Test Item Value Reference Range Interpretation Comments PHOSPHORUS (BEAKER) (test code = 3.8 mg/dL 2.5-4.5 604) Plating Inspector ID - [id number] W/PLT COUNT & AUTO [id number] 03:57:39 Test Item Value Reference Range Interpretation Comments WHITE BLOOD CELL COUNT (BEAKER) 10.2 K/ L 4.0-10.0 H (test code = 775) RED BLOOD CELL COUNT (BEAKER) 3.79 M/ L 4.00-5.00 L (test code = 761) HEMOGLOBIN (BEAKER) (test code = 8.6 GM/DL 12.0-15.5 L 410) HEMATOCRIT (BEAKER) (test code = 31.3 % 36.0-46.0 L 411) MEAN CORPUSCULAR VOLUME (BEAKER) 82.6 fL 82.0-99.0 (test code = 753) MEAN CORPUSCULAR HEMOGLOBIN 22.7 pg 27.0-33.0 L (BEAKER) (test code = 751) MEAN CORPUSCULAR HEMOGLOBIN CONC 27.5 GM/DL 32.0-36.0 L (BEAKER) (test code = 752) RED CELL DISTRIBUTION WIDTH 20.7 % 12.0-15.0 H (BEAKER) (test code = 412) PLATELET COUNT (BEAKER) (test 269 K/CU MM 150-430 code = 756) MEAN PLATELET VOLUME (BEAKER) 10.9 fL 6.0-11.5 (test code = 754) NUCLEATED RED BLOOD CELLS 1 /100 WBC 0-0 H (BEAKER) (test code = 413) NEUTROPHILS RELATIVE PERCENT 77 % (BEAKER) (test code = 429) LYMPHOCYTES RELATIVE PERCENT 9 % (BEAKER) (test code = 430) MONOCYTES RELATIVE PERCENT 11 % (BEAKER) (test code = 431) EOSINOPHILS RELATIVE PERCENT 3 % (BEAKER) (test code = 432) BASOPHILS RELATIVE PERCENT 0 % (BEAKER) (test code = 437) NEUTROPHILS ABSOLUTE COUNT 7.88 K/ L 1.80-8.00 (BEAKER) (test code = 670) LYMPHOCYTES ABSOLUTE COUNT 0.88 K/ L 1.48-4.50 L (BEAKER) (test code = 414) MONOCYTES ABSOLUTE COUNT (BEAKER) 1.07 K/ L 0.00-1.30 (test code = 415) EOSINOPHILS ABSOLUTE COUNT 0.28 K/ L 0.00-0.50 (BEAKER) (test code = 416) BASOPHILS ABSOLUTE COUNT (BEAKER) 0.04 K/ L 0.00-0.20 (test code = 417) IMMATURE GRANULOCYTES-RELATIVE 1 % 0-0 H PERCENT (BEAKER) (test code = 2801) POCT-GLUCOSE [id number] 00:49:04 Test Item Value Reference Range Interpretation Comments POC-GLUCOSE METER 103 mg/dL 70-110 : TESTED A T [facility] 1317 (BEAKER) (test code [facility] [place] [address], = 1538) [facility] 77 478: Plating Inspector/Techni hermes ID = [id number] for Divina Can [id number] 00:01:42 Test Item Value Reference Range Interpretation Comments POTASSIUM (BEAKER) (test code = 3.5 meq/L 3.6-5.5 L 379) Plating Inspector ID - [id number] ID - [id number] ID - [id number] ID - [id number] 20:10:40 Test Item Value Reference Range Interpretation Comments POTASSIUM (BEAKER) (test code = 3.3 meq/L 3.6-5.5 L 379) Plating Inspector ID - JAQUELYNNEOperator ID - JAQUELYNNEOperator ID - JAQUELYNNEOperator ID - JAQUELYNNEPOCT-GLUCOSE [id number] 17:58:09 Test Item Value Reference Range Interpretation Comments POC-GLUCOSE METER 104 mg/dL 70-110 : TESTED A T [facility] [address]17 (BEAKER) (test code [address], = 1538) [place] [address] 478: Plating Inspector/Techni hermes ID = [id number] for FALA NA, FOLAKEMI POCT-GLUCOSE [id number] 13:37:00 Test Item Value Reference Range Interpretation Comments POC-GLUCOSE METER 121 mg/dL 70-110 H : TESTED A T [address] [address] (BEAKER) (test code [address], = 1538) [place] [address] 478: Plating Inspector/Techni hermes ID = [id number] for FALA NA, FOLAKEMI [id number] 09:41:39 Test Item Value Reference Range Interpretation Comments POTASSIUM (BEAKER) (test code = 3.2 meq/L 3.6-5.5 L 379) Plating Inspector ID - DSENSONOperator ID - DSENSONOperator ID - DSENSONOperator ID - DSENSONRAD, CHEST, 1 VIEW, NON [id number] 07:27:00Reason for exam:->[facility] : 1975 Sex: FFINAL REPORT Chest AP portable Comparison exam: 03/16/2022 History provided: Respiratory failure Tube positions unchanged. Heart size magnified by projection and poor inspiration. Airspace opacity persists in the right lower lobe. Left lung relatively clear. Signed: Ryland Pierce MDReport Verified Date/Time: 03/17/2022 07:27:55 Reading Location: [facility] Radiology Reading Room BASIC METABOLIC [id number] 04:56:25 Test Item Value Reference Range Interpretation Comments SODIUM (BEAKER) (test 144 meq/L 135-148 code = 381) POTASSIUM (BEAKER) 3.2 meq/L 3.6-5.5 L (test code = 379) CHLORIDE (BEAKER) 99 meq/L 98-106 (test code = 382) CO2 (BEAKER) (test 34 meq/L 20-29 H code = 355) BLOOD UREA NITROGEN 32 mg/dL 10-26 H (BEAKER) (test code = 354) CREATININE (BEAKER) 1.02 mg/dL 0.50-1.20 (test code = 358) GLUCOSE RANDOM 110 mg/dL 70-110 (BEAKER) (test code = 652) CALCIUM (BEAKER) 8.6 mg/dL 8.5-10.5 (test code = 697) EGFR (BEAKER) (test INSUFFIC IENT CLINICAL code = 1092) DATA TO CALCULA TE ESTIMATED GFR. Plating Inspector ID - LITOOperator ID - LITOOperator ID - LITOOperator ID - LITOOperator ID - LITOOperator ID - LITOOperator ID - LITOOperator ID - LITOOperator ID - LITOOperator ID - [id number] 04:37:34 Test Item Value Reference Range Interpretation Comments MAGNESIUM (BEAKER) (test code = 4.0 mg/dL 1.5-3.0 H 627) Plating Inspector ID - LITOOperator ID - LITOOperator ID - LITOOperator ID - MICHAEL [id number] 04:34:32 Test Item Value Reference Range Interpretation Comments PHOSPHORUS (BEAKER) (test code = 2.6 mg/dL 2.5-4.5 604) Plating Inspector ID - LITOCBC W/PLT COUNT & AUTO [id number] 04:31:08 Test Item Value Reference Range Interpretation Comments WHITE BLOOD CELL COUNT (BEAKER) 12.0 K/ L 4.0-10.0 H (test code = 775) RED BLOOD CELL COUNT (BEAKER) 3.75 M/ L 4.00-5.00 L (test code = 761) HEMOGLOBIN (BEAKER) (test code = 8.5 GM/DL 12.0-15.5 L 410) HEMATOCRIT (BEAKER) (test code = 30.3 % 36.0-46.0 L 411) MEAN CORPUSCULAR VOLUME (BEAKER) 80.8 fL 82.0-99.0 L (test code = 753) MEAN CORPUSCULAR HEMOGLOBIN 22.7 pg 27.0-33.0 L (BEAKER) (test code = 751) MEAN CORPUSCULAR HEMOGLOBIN CONC 28.1 GM/DL 32.0-36.0 L (BEAKER) (test code = 752) RED CELL DISTRIBUTION WIDTH 20.9 % 12.0-15.0 H (BEAKER) (test code = 412) PLATELET COUNT (BEAKER) (test 257 K/CU MM 150-430 code = 756) MEAN PLATELET VOLUME (BEAKER) 10.7 fL 6.0-11.5 (test code = 754) NUCLEATED RED BLOOD CELLS 1 /100 WBC 0-0 H (BEAKER) (test code = 413) NEUTROPHILS RELATIVE PERCENT 78 % (BEAKER) (test code = 429) LYMPHOCYTES RELATIVE PERCENT 8 % (BEAKER) (test code = 430) MONOCYTES RELATIVE PERCENT 11 % (BEAKER) (test code = 431) EOSINOPHILS RELATIVE PERCENT 2 % (BEAKER) (test code = 432) BASOPHILS RELATIVE PERCENT 0 % (BEAKER) (test code = 437) NEUTROPHILS ABSOLUTE COUNT 9.42 K/ L 1.80-8.00 H (BEAKER) (test code = 670) LYMPHOCYTES ABSOLUTE COUNT 0.96 K/ L 1.48-4.50 L (BEAKER) (test code = 414) MONOCYTES ABSOLUTE COUNT (BEAKER) 1.26 K/ L 0.00-1.30 (test code = 415) EOSINOPHILS ABSOLUTE COUNT 0.26 K/ L 0.00-0.50 (BEAKER) (test code = 416) BASOPHILS ABSOLUTE COUNT (BEAKER) 0.04 K/ L 0.00-0.20 (test code = 417) IMMATURE GRANULOCYTES-RELATIVE 1 % 0-0 H PERCENT (BEAKER) (test code = 2801) BLOOD GAS, [id number] 03:42:14 Test Item Value Reference Range Interpretation Comments PH ARTERIAL (BEAKER) (test code = 7.39 7.35-7.45 383) PCO2 ARTERIAL (BEAKER) (test code 56 mm Hg 35-45 H = 384) PO2 ARTERIAL (BEAKER) (test code = 64 mm Hg 80-90 L 385) O2 SATURATION ARTERIAL (BEAKER) 91.0 % 96.0-97.0 L (test code = 386) HCO3 ARTERIAL (BEAKER) (test code 33 mmol/L 21-29 H = 388) BASE EXCESS ARTERIAL (BEAKER) 6.9 mmol/L -2.0-3.0 H (test code = 387) PATIENT TEMPERATURE (BEAKER) (test 37.7 code = 1818) FIO2 (BEAKER) (test code = 1819) 45.0 [id number] 00:50:58 Test Item Value Reference Range Interpretation Comments POTASSIUM (BEAKER) (test code = 3.4 meq/L 3.6-5.5 L 379) Plating Inspector ID - LITOOperator ID - LITOOperator ID - LITOOperator ID - LITOPOCT- GLUCOSE [id number] 23:47:04 Test Item Value Reference Range Interpretation Comments POC-GLUCOSE METER 99 mg/dL 70-110 : TESTED A T [facility] [address] (BEAKER) (test code = [address], 1538) [facility] [address] 478: Plating Inspector/Techni hermes ID = [id number] for Hosea Duran [id number] 19:40:32 Test Item Value Reference Range Interpretation Comments POTASSIUM (BEAKER) (test code = 3.4 meq/L 3.6-5.5 L 379) Plating Inspector ID - [id number] ID - [id number] ID - [id number] ID - [id number] POCT-GLUCOSE [id number] 17:48:16 Test Item Value Reference Range Interpretation Comments POC-GLUCOSE METER 116 mg/dL 70-110 H : TESTED A T [facility] [address] (BEAKER) (test code [address], = 1538) [place] [address] 478: Plating Inspector/Techni hermes ID = [id number] for Ali, Amalia BASIC METABOLIC [id number] 15:13:18 Test Item Value Reference Range Interpretation Comments SODIUM (BEAKER) (test 143 meq/L 135-148 code = 381) POTASSIUM (BEAKER) 3.5 meq/L 3.6-5.5 L (test code = 379) CHLORIDE (BEAKER) 98 meq/L 98-106 (test code = 382) CO2 (BEAKER) (test 35 meq/L 20-29 H code = 355) BLOOD UREA NITROGEN 28 mg/dL 10-26 H (BEAKER) (test code = 354) CREATININE (BEAKER) 1.09 mg/dL 0.50-1.20 (test code = 358) GLUCOSE RANDOM 121 mg/dL 70-110 H (BEAKER) (test code = 652) CALCIUM (BEAKER) 8.9 mg/dL 8.5-10.5 (test code = 697) EGFR (BEAKER) (test INSUFFIC IENT CLINICAL code = 1092) DATA TO CALCULA TE ESTIMATED GFR. Plating Inspector ID - [id number] ID - [id number] ID - [id number] ID - [id number] ID - [id number] ID - ZQGIB564Jiudsrsz ID - DCMHB460Cokdbtjb ID - GFXVF122Gqjlfkhe ID - IAAFN332Hfaehurw ID - JHUWG767Amzdajew ID - OGNYD200Beufhgpa ID - YAMKP466Jbuldksc ID - [id number]- GLUCOSE [id number] 11:45:59 Test Item Value Reference Range Interpretation Comments POC-GLUCOSE METER 132 mg/dL 70-110 H : TESTED A T [facility] [address] (BEAKER) (test code [address], = 1538) [place] [address] 478: Plating Inspector/Techni hermes ID = [id number] for Ali, Amalia RAD, CHEST, 1 VIEW, NON [id number] 05:56:00Reason for exam:->[facility] : 1975 Sex: FFINAL REPORT Chest, one view. HISTORY: RF COMPARISON: Radiograph from yesterday IMPRESSION: Evaluation is suboptimal due to motion artifact. The endotracheal tube is approximately 0.9 cm above the tare, consider retraction by 1 to 2 cm. The right IJ central venous catheter has its tip over the mid SVC. A NG tube courses below the diaphragm. Small left pleural effusion. The hazy opacities in the lungs are concerning for pulmonary edema but could also be due to infection. The cardiac silhouette is unchanged in size. No acute bone abnormality. Signed: Kapil [facility] Verified Date/Time: 03/16/2022 05:56:16 BASIC METABOLIC [id number] 04:12:35 Test Item Value Reference Range Interpretation Comments SODIUM (BEAKER) (test 143 meq/L 135-148 code = 381) POTASSIUM (BEAKER) 3.2 meq/L 3.6-5.5 L (test code = 379) CHLORIDE (BEAKER) 98 meq/L 98-106 (test code = 382) CO2 (BEAKER) (test 35 meq/L 20-29 H code = 355) BLOOD UREA NITROGEN 29 mg/dL 10-26 H (BEAKER) (test code = 354) CREATININE (BEAKER) 1.17 mg/dL 0.50-1.20 (test code = 358) GLUCOSE RANDOM 119 mg/dL 70-110 H (BEAKER) (test code = 652) CALCIUM (BEAKER) 8.7 mg/dL 8.5-10.5 (test code = 697) EGFR (BEAKER) (test INSUFFIC IENT CLINICAL code = 1092) DATA TO CALCULA TE ESTIMATED GFR. Plating Inspector ID - NSUVAGIYAOperator ID - NSUVAGIYAOperator ID - NSUVAGIYAOperator ID - NSUVAGIYAOperatorID - NSUVAGIYAOperator ID - NSUVAGIYAOperator ID - NSUVAGIYAOperator ID - NSUVAGIYAOperator ID - NSUVAGIYAOperator ID - NSUVAGIYA [id number] 04:09:01 Test Item Value Reference Range Interpretation Comments MAGNESIUM (BEAKER) (test code = 2.0 mg/dL 1.5-3.0 627) Plating Inspector ID - NSUVAGIYAOperator ID - NSUVAGIYAOperator ID - NSUVAGIYAOperator ID - [id number] 04:06:03 Test Item Value Reference Range Interpretation Comments PHOSPHORUS (BEAKER) (test code = 3.2 mg/dL 2.5-4.5 604) Plating Inspector ID - NSUVAGIYACBC W/PLT COUNT & AUTO [id number] 03:50:46 Test Item Value Reference Range Interpretation Comments WHITE BLOOD CELL COUNT (BEAKER) 10.7 K/ L 4.0-10.0 H (test code = 775) RED BLOOD CELL COUNT (BEAKER) 3.73 M/ L 4.00-5.00 L (test code = 761) HEMOGLOBIN (BEAKER) (test code = 8.6 GM/DL 12.0-15.5 L 410) HEMATOCRIT (BEAKER) (test code = 30.8 % 36.0-46.0 L 411) MEAN CORPUSCULAR VOLUME (BEAKER) 82.6 fL 82.0-99.0 (test code = 753) MEAN CORPUSCULAR HEMOGLOBIN 23.1 pg 27.0-33.0 L (BEAKER) (test code = 751) MEAN CORPUSCULAR HEMOGLOBIN CONC 27.9 GM/DL 32.0-36.0 L (BEAKER) (test code = 752) RED CELL DISTRIBUTION WIDTH 20.4 % 12.0-15.0 H (BEAKER) (test code = 412) PLATELET COUNT (BEAKER) (test 247 K/CU MM 150-430 code = 756) MEAN PLATELET VOLUME (BEAKER) 10.7 fL 6.0-11.5 (test code = 754) NUCLEATED RED BLOOD CELLS 0 /100 WBC 0-0 (BEAKER) (test code = 413) NEUTROPHILS RELATIVE PERCENT 78 % (BEAKER) (test code = 429) LYMPHOCYTES RELATIVE PERCENT 8 % (BEAKER) (test code = 430) MONOCYTES RELATIVE PERCENT 11 % (BEAKER) (test code = 431) EOSINOPHILS RELATIVE PERCENT 2 % (BEAKER) (test code = 432) BASOPHILS RELATIVE PERCENT 0 % (BEAKER) (test code = 437) NEUTROPHILS ABSOLUTE COUNT 8.37 K/ L 1.80-8.00 H (BEAKER) (test code = 670) LYMPHOCYTES ABSOLUTE COUNT 0.83 K/ L 1.48-4.50 L (BEAKER) (test code = 414) MONOCYTES ABSOLUTE COUNT (BEAKER) 1.14 K/ L 0.00-1.30 (test code = 415) EOSINOPHILS ABSOLUTE COUNT 0.19 K/ L 0.00-0.50 (BEAKER) (test code = 416) BASOPHILS ABSOLUTE COUNT (BEAKER) 0.04 K/ L 0.00-0.20 (test code = 417) IMMATURE GRANULOCYTES-RELATIVE 1 % 0-0 H PERCENT (BEAKER) (test code = 2801) BLOOD GAS, [id number] 03:41:57 Test Item Value Reference Range Interpretation Comments PH ARTERIAL (BEAKER) (test code = 7.42 7.35-7.45 383) PCO2 ARTERIAL (BEAKER) (test code 53 mm Hg 35-45 H = 384) PO2 ARTERIAL (BEAKER) (test code = 68 mm Hg 80-90 L 385) O2 SATURATION ARTERIAL (BEAKER) 93.6 % 96.0-97.0 L (test code = 386) HCO3 ARTERIAL (BEAKER) (test code 33 mmol/L 21-29 H = 388) BASE EXCESS ARTERIAL (BEAKER) 7.8 mmol/L -2.0-3.0 H (test code = 387) PATIENT TEMPERATURE (BEAKER) (test 37.1 code = 1818) FIO2 (BEAKER) (test code = 1819) 50.0 POCT-GLUCOSE [id number] 00:06:52 Test Item Value Reference Range Interpretation Comments POC-GLUCOSE METER 118 mg/dL 70-110 H : TESTED A T [facility] [address] (BEAKER) (test code [address], = 1538) [place] [address]: Plating Inspector/Techni hermes ID = [id number] for Divina Can [id number] 19:29:00 Test Item Value Reference Range Interpretation Comments POTASSIUM (BEAKER) (test code = 3.5 meq/L 3.6-5.5 L 379) Plating Inspector ID - [id number] ID - [id number] ID - [id number] ID - [id number] [id number] 17:40:34 Test Item Value Reference Range Interpretation Comments POC-GLUCOSE METER 129 mg/dL 70-110 H : TESTED A T [address] (BEAKER) (test code [address], = 1538) [place] [address]: Plating Inspector/Techni hermes ID = [id number] for Ilda Downing se [id number] 14:36:37 Test Item Value Reference Range Interpretation Comments POTASSIUM (BEAKER) (test code = 3.3 meq/L 3.6-5.5 L 379) Plating Inspector ID - JAQUELYNNEOperator ID - JAQUELYNNEOperator ID - JAQUELYNNEOperator ID - JAQUELYNNEPOCT-GLUCOSE [id number] 11:47:29 Test Item Value Reference Range Interpretation Comments POC-GLUCOSE METER 122 mg/dL 70-110 H : TESTED A T [address] (BEAKER) (test code [address], = 1538) [place] [address]: Plating Inspector/Techni hermes ID = [id number] for Amaris Stringera RAD, CHEST, 1 VIEW, NON [id number] 08:00:00Reason for exam:->[facility] : 1975 Sex: FFINAL REPORT RAD, CHEST, 1 VIEW, NON DEPT INDICATION: RF COMPARISON: Prior day's exam FINDINGS: Portable frontal view of the chest. IMPRESSION: Support Lines: ET tube tip is 2 cm superior to the trae. NG tube descends below the diaphragm. Lungs and pleura: Bilaterallower lobe airspace disease is unchanged. No significant pneumothorax. Heart and mediastinum: Stablecontours. Additional findings: None. Signed: Connie Clark MDReport Verified Date/Time: 03/15/2022 08:00:08 BASIC METABOLIC [id number] 04:55:21 Test Item Value Reference Range Interpretation Comments SODIUM (BEAKER) (test 144 meq/L 135-148 code = 381) POTASSIUM (BEAKER) 3.5 meq/L 3.6-5.5 L (test code = 379) CHLORIDE (BEAKER) 97 meq/L 98-106 L (test code = 382) CO2 (BEAKER) (test 35 meq/L 20-29 H code = 355) BLOOD UREA NITROGEN 28 mg/dL 10-26 H (BEAKER) (test code = 354) CREATININE (BEAKER) 1.11 mg/dL 0.50-1.20 (test code = 358) GLUCOSE RANDOM 110 mg/dL 70-110 (BEAKER) (test code = 652) CALCIUM (BEAKER) 8.5 mg/dL 8.5-10.5 (test code = 697) EGFR (BEAKER) (test INSUFFIC IENT CLINICAL code = 1092) DATA TO CALCULA TE ESTIMATED GFR. Plating Inspector ID - LITOOperator ID - LITOOperator ID - LITOOperator ID - LITOOperator ID - LITOOperator ID - LITOOperator ID - LITOOperator ID - LITOOperator ID - LITOOperator ID - [id number] 04:40:03 Test Item Value Reference Range Interpretation Comments MAGNESIUM (BEAKER) (test code = 2.1 mg/dL 1.5-3.0 627) Plating Inspector ID - LITOOperator ID - LITOOperator ID - LITOOperator ID - MICHAEL [id number] 04:37:23 Test Item Value Reference Range Interpretation Comments PHOSPHORUS (BEAKER) (test code = 3.2 mg/dL 2.5-4.5 604) Plating Inspector ID - LITOCBC W/PLT COUNT & AUTO [id number] 04:26:36 Test Item Value Reference Range Interpretation Comments WHITE BLOOD CELL COUNT (BEAKER) 10.7 K/ L 4.0-10.0 H (test code = 775) RED BLOOD CELL COUNT (BEAKER) 3.83 M/ L 4.00-5.00 L (test code = 761) HEMOGLOBIN (BEAKER) (test code = 8.8 GM/DL 12.0-15.5 L 410) HEMATOCRIT (BEAKER) (test code = 31.8 % 36.0-46.0 L 411) MEAN CORPUSCULAR VOLUME (BEAKER) 83.0 fL 82.0-99.0 (test code = 753) MEAN CORPUSCULAR HEMOGLOBIN 23.0 pg 27.0-33.0 L (BEAKER) (test code = 751) MEAN CORPUSCULAR HEMOGLOBIN CONC 27.7 GM/DL 32.0-36.0 L (BEAKER) (test code = 752) RED CELL DISTRIBUTION WIDTH 19.9 % 12.0-15.0 H (BEAKER) (test code = 412) PLATELET COUNT (BEAKER) (test 248 K/CU MM 150-430 code = 756) MEAN PLATELET VOLUME (BEAKER) 10.8 fL 6.0-11.5 (test code = 754) NUCLEATED RED BLOOD CELLS 1 /100 WBC 0-0 H (BEAKER) (test code = 413) NEUTROPHILS RELATIVE PERCENT 78 % (BEAKER) (test code = 429) LYMPHOCYTES RELATIVE PERCENT 8 % (BEAKER) (test code = 430) MONOCYTES RELATIVE PERCENT 11 % (BEAKER) (test code = 431) EOSINOPHILS RELATIVE PERCENT 2 % (BEAKER) (test code = 432) BASOPHILS RELATIVE PERCENT 1 % (BEAKER) (test code = 437) NEUTROPHILS ABSOLUTE COUNT 8.39 K/ L 1.80-8.00 H (BEAKER) (test code = 670) LYMPHOCYTES ABSOLUTE COUNT 0.85 K/ L 1.48-4.50 L (BEAKER) (test code = 414) MONOCYTES ABSOLUTE COUNT (BEAKER) 1.13 K/ L 0.00-1.30 (test code = 415) EOSINOPHILS ABSOLUTE COUNT 0.23 K/ L 0.00-0.50 (BEAKER) (test code = 416) BASOPHILS ABSOLUTE COUNT (BEAKER) 0.05 K/ L 0.00-0.20 (test code = 417) IMMATURE GRANULOCYTES-RELATIVE 1 % 0-0 H PERCENT (BEAKER) (test code = 2801) BLOOD GAS, [id number] 04:23:07 Test Item Value Reference Range Interpretation Comments PH ARTERIAL (BEAKER) (test code = 7.40 7.35-7.45 383) PCO2 ARTERIAL (BEAKER) (test code 60 mm Hg 35-45 H = 384) PO2 ARTERIAL (BEAKER) (test code = 77 mm Hg 80-90 L 385) O2 SATURATION ARTERIAL (BEAKER) 94.5 % 96.0-97.0 L (test code = 386) HCO3 ARTERIAL (BEAKER) (test code 36 mmol/L 21-29 H = 388) BASE EXCESS ARTERIAL (BEAKER) 9.9 mmol/L -2.0-3.0 H (test code = 387) PATIENT TEMPERATURE (BEAKER) (test 37.7 code = 1818) FIO2 (BEAKER) (test code = 1819) 60.0 POCT-GLUCOSE [id number] 00:27:40 Test Item Value Reference Range Interpretation Comments POC-GLUCOSE METER 107 mg/dL 70-110 : TESTED A T [address] (BEAKER) (test code [address], = 1538) [place] [address]: Plating Inspector/Techni hermes ID = [id number] for William Navarro POCT-GLUCOSE [id number] 17:30:39 Test Item Value Reference Range Interpretation Comments POC-GLUCOSE METER 115 mg/dL 70-110 H : TESTED A T [address] (BEAKER) (test code [address], = 1538) [place] [address]: Plating Inspector/Techni hermes ID = [id number] for Ali, Amalia POCT-GLUCOSE [id number] 12:14:29 Test Item Value Reference Range Interpretation Comments POC-GLUCOSE METER 120 mg/dL 70-110 H : TESTED A T [address] (BEAKER) (test code [address], = 1538) [facility] [address]: Plating Inspector/Techni hermes ID = [id number] for Ali, Amalia RAD, CHEST, 1 VIEW, NON [id number] 08:51:00Reason for exam:->RF [facility] : 1975 Sex: FFINAL REPORT Chest AP portable Comparison exam: 03/13/2022 History provided: Respiratory failure ET tube, NG tube, and right jugular line in place. Airspace disease predominating in the right lung persists. No pneumothorax. Signed: Ryland Pierceeport Verified Date/Time: 03/14/2022 08:51:09 Reading Location: [facility] Diagnostic Imaging Reading Room [place] [address] 1.310.12 BASIC METABOLIC [id number] 05:01:15 Test Item Value Reference Range Interpretation Comments SODIUM (BEAKER) (test 143 meq/L 135-148 code = 381) POTASSIUM (BEAKER) 3.6 meq/L 3.6-5.5 (test code = 379) CHLORIDE (BEAKER) 96 meq/L 98-106 L (test code = 382) CO2 (BEAKER) (test 36 meq/L 20-29 H code = 355) BLOOD UREA NITROGEN 28 mg/dL 10-26 H (BEAKER) (test code = 354) CREATININE (BEAKER) 1.29 mg/dL 0.50-1.20 H (test code = 358) GLUCOSE RANDOM 117 mg/dL 70-110 H (BEAKER) (test code = 652) CALCIUM (BEAKER) 8.4 mg/dL 8.5-10.5 L (test code = 697) EGFR (BEAKER) (test INSUFFIC IENT CLINICAL code = 1092) DATA TO CALCULA TE ESTIMATED GFR. Plating Inspector ID - LITOOperator ID - LITOOperator ID - LITOOperator ID - LITOOperator ID - LITOOperator ID - LITOOperator ID - LITOOperator ID - LITOOperator ID - LITOOperator ID - LITOBLOOD GAS, [id number] 04:59:07 Test Item Value Reference Range Interpretation Comments PH ARTERIAL (BEAKER) (test code = 7.39 7.35-7.45 383) PCO2 ARTERIAL (BEAKER) (test code 66 mm Hg 35-45 H = 384) PO2 ARTERIAL (BEAKER) (test code 79 mm Hg 80-90 L = 385) O2 SATURATION ARTERIAL (BEAKER) 95.5 % 96.0-97.0 L (test code = 386) HCO3 ARTERIAL (BEAKER) (test code 40 mmol/L 21-29 HH = 388) BASE EXCESS ARTERIAL (BEAKER) 12.5 mmol/L -2.0-3.0 H (test code = 387) PATIENT TEMPERATURE (BEAKER) 36.5 (test code = 1818) FIO2 (BEAKER) (test code = 1819) 50.0 [id number] 04:27:26 Test Item Value Reference Range Interpretation Comments MAGNESIUM (BEAKER) (test code = 1.9 mg/dL 1.5-3.0 627) Plating Inspector ID - LITOOperator ID - LITOOperator ID - LITOOperator ID - MICHAEL [id number] 04:24:46 Test Item Value Reference Range Interpretation Comments PHOSPHORUS (BEAKER) (test code = 3.2 mg/dL 2.5-4.5 604) Plating Inspector ID - LITOCBC W/PLT COUNT & AUTO [id number] 04:06:29 Test Item Value Reference Range Interpretation Comments WHITE BLOOD CELL COUNT (BEAKER) 9.0 K/ L 4.0-10.0 (test code = 775) RED BLOOD CELL COUNT (BEAKER) 3.59 M/ L 4.00-5.00 L (test code = 761) HEMOGLOBIN (BEAKER) (test code = 8.2 GM/DL 12.0-15.5 L 410) HEMATOCRIT (BEAKER) (test code = 29.5 % 36.0-46.0 L 411) MEAN CORPUSCULAR VOLUME (BEAKER) 82.2 fL 82.0-99.0 (test code = 753) MEAN CORPUSCULAR HEMOGLOBIN 22.8 pg 27.0-33.0 L (BEAKER) (test code = 751) MEAN CORPUSCULAR HEMOGLOBIN CONC 27.8 GM/DL 32.0-36.0 L (BEAKER) (test code = 752) RED CELL DISTRIBUTION WIDTH 19.1 % 12.0-15.0 H (BEAKER) (test code = 412) PLATELET COUNT (BEAKER) (test 220 K/CU MM 150-430 code = 756) MEAN PLATELET VOLUME (BEAKER) 10.6 fL 6.0-11.5 (test code = 754) NUCLEATED RED BLOOD CELLS 0 /100 WBC 0-0 (BEAKER) (test code = 413) NEUTROPHILS RELATIVE PERCENT 79 % (BEAKER) (test code = 429) LYMPHOCYTES RELATIVE PERCENT 8 % (BEAKER) (test code = 430) MONOCYTES RELATIVE PERCENT 9 % (BEAKER) (test code = 431) EOSINOPHILS RELATIVE PERCENT 2 % (BEAKER) (test code = 432) BASOPHILS RELATIVE PERCENT 1 % (BEAKER) (test code = 437) NEUTROPHILS ABSOLUTE COUNT 7.14 K/ L 1.80-8.00 (BEAKER) (test code = 670) LYMPHOCYTES ABSOLUTE COUNT 0.75 K/ L 1.48-4.50 L (BEAKER) (test code = 414) MONOCYTES ABSOLUTE COUNT (BEAKER) 0.80 K/ L 0.00-1.30 (test code = 415) EOSINOPHILS ABSOLUTE COUNT 0.21 K/ L 0.00-0.50 (BEAKER) (test code = 416) BASOPHILS ABSOLUTE COUNT (BEAKER) 0.05 K/ L 0.00-0.20 (test code = 417) IMMATURE GRANULOCYTES-RELATIVE 1 % 0-0 H PERCENT (BEAKER) (test code = 2801) POCT-GLUCOSE [id number] 23:59:39 Test Item Value Reference Range Interpretation Comments POC-GLUCOSE METER 115 mg/dL 70-110 H : TESTED A T [facility] [address] (BEAKER) (test code [address], = 1538) [place] [id number]: Plating Inspector/Techni hermes ID = [id number] for Divina Can POCT-GLUCOSE [id number] 17:59:37 Test Item Value Reference Range Interpretation Comments POC-GLUCOSE METER 121 mg/dL 70-110 H : TESTED A T [facility] [address] (BEAKER) (test code [address], = 1538) [place] [id number]: Plating Inspector/Techni hermes ID = [id number] for Andria Jacobs POCT-GLUCOSE [id number] 12:57:25 Test Item Value Reference Range Interpretation Comments POC-GLUCOSE METER 104 mg/dL 70-110 : TESTED A T [facility] [address] (BEAKER) (test code [address], = 1538) [place] [id number]: Plating Inspector/Techni hermes ID = [id number] for Glenys Jana johnston RAD, CHEST, 1 VIEW, NON [id number] 07:20:00Reason for exam:->[facility] : 1975 Sex: FFINAL REPORT Chest AP portable Comparison exam: 03/12/2022 History provided: Respiratory failure ET tube, NG tube, and right jugular line remain in place. Bibasilar opacityconsistent with atelectasis, pleural effusions and/or pneumonia not excluded. Quality of exam compromised by morbid obesity. Signed: Ryland Pierce Verified Date/Time: 03/13/2022 07:20:56 Reading Location: [facility] Radiology Reading Room BASIC METABOLIC [id number] 05:52:46 Test Item Value Reference Range Interpretation Comments SODIUM (BEAKER) (test 141 meq/L 135-148 code = 381) POTASSIUM (BEAKER) 4.4 meq/L 3.6-5.5 (test code = 379) CHLORIDE (BEAKER) 97 meq/L 98-106 L (test code = 382) CO2 (BEAKER) (test 35 meq/L 20-29 H code = 355) BLOOD UREA NITROGEN 22 mg/dL 10-26 (BEAKER) (test code = 354) CREATININE (BEAKER) 1.41 mg/dL 0.50-1.20 H (test code = 358) GLUCOSE RANDOM 131 mg/dL 70-110 H (BEAKER) (test code = 652) CALCIUM (BEAKER) 8.5 mg/dL 8.5-10.5 (test code = 697) EGFR (BEAKER) (test INSUFFIC IENT CLINICAL code = 1092) DATA TO CALCULA TE ESTIMATED GFR. Plating Inspector ID - NSUVAGIYAOperator ID - NSUVAGIYAOperator ID - NSUVAGIYAOperator ID - NSUVAGIYAOperatorID - NSUVAGIYAOperator ID - NSUVAGIYAOperator ID - NSUVAGIYAOperator ID - NSUVAGIYAOperator ID - NSUVAGIYAOperator ID - NSUVAGIYA HEPATIC FUNCTION [id number] 05:46:53 Test Item Value Reference Range Interpretation Comments TOTAL PROTEIN (BEAKER) (test code = 7.8 gm/dL 6.0-8.5 770) ALBUMIN (BEAKER) (test code = 1145) 3.1 g/dL 3.5-5.0 L BILIRUBIN TOTAL (BEAKER) (test code 2.5 mg/dL 0.1-1.2 H = 377) BILIRUBIN DIRECT (BEAKER) (test 1.1 mg/dL 0.0-0.4 H code = 706) ALKALINE PHOSPHATASE (BEAKER) (test 58 U/L 30-115 code = 346) AST (SGOT) (BEAKER) (test code = 12 U/L 5-40 353) ALT (SGPT) (BEAKER) (test code = 8 U/L 5-50 347) Plating Inspector ID - NSUVAGIYAOperator ID - NSUVAGIYAOperator ID - NSUVAGIYAOperator ID - NSUVAGIYAOperatorID - NSUVAGIYAOperator ID - NSUVAGIYAOperator ID - NSUVAGIYA [id number] 05:46:53 Test Item Value Reference Range Interpretation Comments MAGNESIUM (BEAKER) (test code = 2.0 mg/dL 1.5-3.0 627) Plating Inspector ID - NSUVAGIYAOperator ID - NSUVAGIYAOperator ID - NSUVAGIYAOperator ID - [id number] 05:43:31 Test Item Value Reference Range Interpretation Comments PHOSPHORUS (BEAKER) (test code = 4.9 mg/dL 2.5-4.5 H 604) Plating Inspector ID - NSUVAGIYACBC W/PLT COUNT & AUTO [id number] 05:22:47 Test Item Value Reference Range Interpretation Comments WHITE BLOOD CELL COUNT (BEAKER) 10.0 K/ L 4.0-10.0 (test code = 775) RED BLOOD CELL COUNT (BEAKER) 4.34 M/ L 4.00-5.00 (test code = 761) HEMOGLOBIN (BEAKER) (test code = 9.7 GM/DL 12.0-15.5 L 410) HEMATOCRIT (BEAKER) (test code = 36.3 % 36.0-46.0 411) MEAN CORPUSCULAR VOLUME (BEAKER) 83.6 fL 82.0-99.0 (test code = 753) MEAN CORPUSCULAR HEMOGLOBIN 22.4 pg 27.0-33.0 L (BEAKER) (test code = 751) MEAN CORPUSCULAR HEMOGLOBIN CONC 26.7 GM/DL 32.0-36.0 L (BEAKER) (test code = 752) RED CELL DISTRIBUTION WIDTH 19.3 % 12.0-15.0 H (BEAKER) (test code = 412) PLATELET COUNT (BEAKER) (test 271 K/CU MM 150-430 code = 756) MEAN PLATELET VOLUME (BEAKER) 10.8 fL 6.0-11.5 (test code = 754) NUCLEATED RED BLOOD CELLS 1 /100 WBC 0-0 H (BEAKER) (test code = 413) NEUTROPHILS RELATIVE PERCENT 76 % (BEAKER) (test code = 429) LYMPHOCYTES RELATIVE PERCENT 9 % (BEAKER) (test code = 430) MONOCYTES RELATIVE PERCENT 11 % (BEAKER) (test code = 431) EOSINOPHILS RELATIVE PERCENT 3 % (BEAKER) (test code = 432) BASOPHILS RELATIVE PERCENT 1 % (BEAKER) (test code = 437) NEUTROPHILS ABSOLUTE COUNT 7.57 K/ L 1.80-8.00 (BEAKER) (test code = 670) LYMPHOCYTES ABSOLUTE COUNT 0.92 K/ L 1.48-4.50 L (BEAKER) (test code = 414) MONOCYTES ABSOLUTE COUNT (BEAKER) 1.09 K/ L 0.00-1.30 (test code = 415) EOSINOPHILS ABSOLUTE COUNT 0.26 K/ L 0.00-0.50 (BEAKER) (test code = 416) BASOPHILS ABSOLUTE COUNT (BEAKER) 0.06 K/ L 0.00-0.20 (test code = 417) IMMATURE GRANULOCYTES-RELATIVE 1 % 0-0 H PERCENT (BEAKER) (test code = 2801) BLOOD GAS, [id number] 04:40:41 Test Item Value Reference Range Interpretation Comments PH ARTERIAL (BEAKER) (test code = 7.32 7.35-7.45 L 383) PCO2 ARTERIAL (BEAKER) (test code 74 mm Hg 35-45 HH = 384) PO2 ARTERIAL (BEAKER) (test code = 94 mm Hg 80-90 H 385) O2 SATURATION ARTERIAL (BEAKER) 96.3 % 96.0-97.0 (test code = 386) HCO3 ARTERIAL (BEAKER) (test code 37 mmol/L 21-29 H = 388) BASE EXCESS ARTERIAL (BEAKER) 8.5 mmol/L -2.0-3.0 H (test code = 387) PATIENT TEMPERATURE (BEAKER) (test 37.0 code = 1818) FIO2 (BEAKER) (test code = 1819) 40.0 [id number] 02:20:25 Test Item Value Reference Range Interpretation Comments PARTIAL THROMBOPLASTIN 34.1 seconds 23.0-35.0 Final Information TIME (BEAKER) (test (Auto Ou tput) code = 760) POCT-GLUCOSE [id number] 00:56:56 Test Item Value Reference Range Interpretation Comments POC-GLUCOSE METER 118 mg/dL 70-110 H : TESTED A T [facility] [address] (BEAKER) (test code [address], = [address]) [place] [address]: Plating Inspector/Techni hermes ID = [id number] for Obac hi, Maddy [id number] 17:58:41 Test Item Value Reference Range Interpretation Comments PARTIAL THROMBOPLASTIN 34.5 seconds 23.0-35.0 Final Information TIME (BEAKER) (test (Auto Ou tput) code = 760) POCT-GLUCOSE [id number] 11:18:19 Test Item Value Reference Range Interpretation Comments POC-GLUCOSE METER 83 mg/dL 70-110 : TESTED A T [facility] [address] (BEAKER) (test code = [address]) [place] [address] 478: Plating Inspector/Techni hermes ID = [id number] for John Doe [id number] 10:51:56 Test Item Value Reference Range Interpretation Comments PARTIAL THROMBOPLASTIN 32.4 seconds 23.0-35.0 Final Information TIME (BEAKER) (test (Auto Ou tput) code = 760) RAD, CHEST, 1 VIEW, NON [id number] 07:28:00Reason for exam:->RF [facility] : 1975 Sex: FFINAL REPORT Chest AP portable semierect Comparison exam: 03/11/2022 History provided: Respiratory failure ET tube and NG tube remain in place. Radiograph is limited by morbid obesity. Moderate right pleural effusion. Bibasilar atelectasis. Signed: Ryland Pierceort Verified Date/Time: 03/12/2022 07:28:53 Reading Location: [facility] Radiology Reading Room BLOOD GAS, [id number] 06:01:09 Test Item Value Reference Range Interpretation Comments PH ARTERIAL (BEAKER) (test code = 7.52 7.35-7.45 H 383) PCO2 ARTERIAL (BEAKER) (test code 40 mm Hg 35-45 = 384) PO2 ARTERIAL (BEAKER) (test code = 87 mm Hg 80-90 385) O2 SATURATION ARTERIAL (BEAKER) 97.4 % 96.0-97.0 H (test code = 386) HCO3 ARTERIAL (BEAKER) (test code 32 mmol/L 21-29 H = 388) BASE EXCESS ARTERIAL (BEAKER) 8.4 mmol/L -2.0-3.0 H (test code = 387) PATIENT TEMPERATURE (BEAKER) (test 37.0 code = 1818) FIO2 (BEAKER) (test code = 1819) 50.0 BASIC METABOLIC [id number] 04:50:52 Test Item Value Reference Range Interpretation Comments SODIUM (BEAKER) (test 145 meq/L 135-148 code = 381) POTASSIUM (BEAKER) 3.4 meq/L 3.6-5.5 L (test code = 379) CHLORIDE (BEAKER) 99 meq/L 98-106 (test code = 382) CO2 (BEAKER) (test 35 meq/L 20-29 H code = 355) BLOOD UREA NITROGEN 15 mg/dL 10-26 (BEAKER) (test code = 354) CREATININE (BEAKER) 0.83 mg/dL 0.50-1.20 (test code = 358) GLUCOSE RANDOM 89 mg/dL 70-110 (BEAKER) (test code = 652) CALCIUM (BEAKER) 8.6 mg/dL 8.5-10.5 (test code = 697) EGFR (BEAKER) (test INSUFFIC IENT CLINICAL code = 1092) DATA TO CALCULA TE ESTIMATED GFR. Plating Inspector ID - [id number] ID - [id number] ID - [id number] ID - [id number] ID - zvlp16Vrsdmhup ID - smux39Dfozpryi ID - yvpw61Upxxykvr ID - rrol71Ecncmaoe ID - aets13Asaozkxq ID - zelu56Vxzvsult slightly ictericHEPATIC FUNCTION [id number] 04:50:46 Test Item Value Reference Range Interpretation Comments TOTAL PROTEIN (BEAKER) (test code = 7.0 gm/dL 6.0-8.5 770) ALBUMIN (BEAKER) (test code = 1145) 2.8 g/dL 3.5-5.0 L BILIRUBIN TOTAL (BEAKER) (test code 2.1 mg/dL 0.1-1.2 H = 377) BILIRUBIN DIRECT (BEAKER) (test 1.0 mg/dL 0.0-0.4 H code = 706) ALKALINE PHOSPHATASE (BEAKER) (test 56 U/L 30-115 code = 346) AST (SGOT) (BEAKER) (test code = 14 U/L 5-40 353) ALT (SGPT) (BEAKER) (test code = 9 U/L 5-50 347) Plating Inspector ID - [id number] ID - [id number] ID - [id number] ID - [id number] ID - btlc69Jzwvdooh ID - cwbl01Xcynieiu ID - [id number] slightly [id number] 04:48:18 Test Item Value Reference Range Interpretation Comments MAGNESIUM (BEAKER) (test code = 1.8 mg/dL 1.5-3.0 627) Plating Inspector ID - [id number] ID - [id number] ID - [id number] ID - [id number] 04:44:57 Test Item Value Reference Range Interpretation Comments PHOSPHORUS (BEAKER) (test code = 3.1 mg/dL 2.5-4.5 604) Plating Inspector ID - [id number] W/PLT COUNT & AUTO [id number] 04:34:14 Test Item Value Reference Range Interpretation Comments WHITE BLOOD CELL COUNT (BEAKER) 6.1 K/ L 4.0-10.0 (test code = 775) RED BLOOD CELL COUNT (BEAKER) 4.17 M/ L 4.00-5.00 (test code = 761) HEMOGLOBIN (BEAKER) (test code = 9.4 GM/DL 12.0-15.5 L 410) HEMATOCRIT (BEAKER) (test code = 33.2 % 36.0-46.0 L 411) MEAN CORPUSCULAR VOLUME (BEAKER) 79.6 fL 82.0-99.0 L (test code = 753) MEAN CORPUSCULAR HEMOGLOBIN 22.5 pg 27.0-33.0 L (BEAKER) (test code = 751) MEAN CORPUSCULAR HEMOGLOBIN CONC 28.3 GM/DL 32.0-36.0 L (BEAKER) (test code = 752) RED CELL DISTRIBUTION WIDTH 19.1 % 12.0-15.0 H (BEAKER) (test code = 412) PLATELET COUNT (BEAKER) (test 275 K/CU MM 150-430 code = 756) MEAN PLATELET VOLUME (BEAKER) 10.7 fL 6.0-11.5 (test code = 754) NUCLEATED RED BLOOD CELLS 0 /100 WBC 0-0 (BEAKER) (test code = 413) NEUTROPHILS RELATIVE PERCENT 64 % (BEAKER) (test code = 429) LYMPHOCYTES RELATIVE PERCENT 22 % (BEAKER) (test code = 430) MONOCYTES RELATIVE PERCENT 12 % (BEAKER) (test code = 431) EOSINOPHILS RELATIVE PERCENT 1 % (BEAKER) (test code = 432) BASOPHILS RELATIVE PERCENT 1 % (BEAKER) (test code = 437) NEUTROPHILS ABSOLUTE COUNT 3.88 K/ L 1.80-8.00 (BEAKER) (test code = 670) LYMPHOCYTES ABSOLUTE COUNT 1.34 K/ L 1.48-4.50 L (BEAKER) (test code = 414) MONOCYTES ABSOLUTE COUNT (BEAKER) 0.72 K/ L 0.00-1.30 (test code = 415) EOSINOPHILS ABSOLUTE COUNT 0.08 K/ L 0.00-0.50 (BEAKER) (test code = 416) BASOPHILS ABSOLUTE COUNT (BEAKER) 0.05 K/ L 0.00-0.20 (test code = 417) IMMATURE GRANULOCYTES-RELATIVE 0 % 0-0 PERCENT (BEAKER) (test code = 2801) [id number] 02:15:40 Test Item Value Reference Range Interpretation Comments PARTIAL THROMBOPLASTIN 32.0 seconds 23.0-35.0 Final Information TIME (BEAKER) (test (Auto Ou tput) code = 760) [id number] 17:24:06 Test Item Value Reference Range Interpretation Comments PARTIAL THROMBOPLASTIN 29.1 seconds 23.0-35.0 Final Information TIME (BEAKER) (test (Auto Ou tput) code = 760) POCT-GLUCOSE [id number] 17:18:38 Test Item Value Reference Range Interpretation Comments POC-GLUCOSE METER 76 mg/dL 70-110 : Notified RN/MD: TESTED ([facility]) (test code = AT [facility] [address] [place] [address]: Plating Inspector/Techni hermes ID = [id number] for Sanju Smith TROPONIN [id number] 12:43:41 Test Item Value Reference Range Interpretation Comments TROPONIN I ([facility]) (test code = 0.04 ng/mL 0.00-0.15 397) Troponin I (TnI) levels must be interpreted in the context of the presenting symptoms and the clinical findings. Elevated TnI levels indicate myocardial damage, but are not specific for ischemic heart disease. Elevated TnI levels are seen in patients with other cardiac conditions (including myocarditis and congestive heart failure), and slight TnI elevations occur in patients with other conditions, including sepsis, renal failure, acidosis, acute neurological disease, and persistent tachyarrhythmia.Plating Inspector ID - [id number] METER 2022-03-11 11:55:43 Test Item Value Reference Range Interpretation Comments POC-GLUCOSE METER 60 mg/dL 70-110 L : Notified RN/MD: TESTED ([facility]) (test code = AT [address] [address]) [place] [address]: Plating Inspector/Techni hermes ID = [id number] for Ritesh Sanju emerson RAD, CHEST, 1 VIEW, NON [id number] 10:13:00Reason for exam:->s/p Rt IJ cvc [facility] : 1975 Sex: FFINAL REPORT Chest, 1 view, 03/11/2022 9:29 AM. History: Right IJ central line placement. Comparison: X-ray from earlier today. Discussion: Evaluation is extremely limiteddue to motion artifact. The right IJ central catheter is barely visible, likely terminating in the region of the SVC. There is no evidence of large pneumothorax. The cardiac silhouette and lungs are unc hanged. The soft tissues and osseous structures are intact. IMPRESSION: Limited exam, no gross evidence of complication. Signed: R[facility] [place] Verified Date/Time: 03/11/2022 10:13:25 Reading Location: [facility] P048 Angio Body Reading Room URINALYSIS W/ REFLEX URINE [id number] 10:06:46 Test Item Value Reference Range Interpretation Comments COLOR (BEAKER) (test code = 470) Yellow CLARITY (BEAKER) (test code = 469) Clear SPECIFIC GRAVITY UA (BEAKER) (test 1.015 1.001-1.035 code = 468) PH UA (BEAKER) (test code = 467) 5.5 5.0-8.0 PROTEIN UA (BEAKER) (test code = Negative Negative 464) GLUCOSE UA (BEAKER) (test code = Negative Negative 365) KETONES UA (BEAKER) (test code = Negative Negative 371) BILIRUBIN UA (BEAKER) (test code = Negative Negative 462) BLOOD UA (BEAKER) (test code = 461) Moderate Negative A NITRITE UA (BEAKER) (test code = Negative Negative 465) LEUKOCYTE ESTERASE UA (BEAKER) Negative Negative (test code = 466) UROBILINOGEN UA (BEAKER) (test code 0.2 mg/dL 0.2-1.0 = 463) BACTERIA (BEAKER) (test code = 517) Rare MUCUS (BEAKER) (test code = 1574) Few RBC UA-MANUAL (BEAKER) (test code = 5-10 /HPF 1659) WBC UA-MANUAL (BEAKER) (test code = <5 /HPF 1661) SQUAMOUS EPITHELIAL MANUAL (BEAKER) 5-10 /HPF (test code = 1663) SOURCE(BEAKER) (test code = 2795) HCG, SERUM, [id number] 06:08:53 Test Item Value Reference Range Interpretation Comments TEST SERUM (BEAKER) (test Negative code = 584) CBC W/PLT COUNT & AUTO [id number] 05:55:16 Test Item Value Reference Range Interpretation Comments WHITE BLOOD CELL COUNT (BEAKER) 6.8 K/ L 4.0-10.0 (test code = 775) RED BLOOD CELL COUNT (BEAKER) 4.25 M/ L 4.00-5.00 (test code = 761) HEMOGLOBIN (BEAKER) (test code = 9.5 GM/DL 12.0-15.5 L 410) HEMATOCRIT (BEAKER) (test code = 35.3 % 36.0-46.0 L 411) MEAN CORPUSCULAR VOLUME (BEAKER) 83.1 fL 82.0-99.0 (test code = 753) MEAN CORPUSCULAR HEMOGLOBIN 22.4 pg 27.0-33.0 L (BEAKER) (test code = 751) MEAN CORPUSCULAR HEMOGLOBIN CONC 26.9 GM/DL 32.0-36.0 L (BEAKER) (test code = 752) RED CELL DISTRIBUTION WIDTH 18.1 % 12.0-15.0 H (BEAKER) (test code = 412) PLATELET COUNT (BEAKER) (test 264 K/CU MM 150-430 code = 756) MEAN PLATELET VOLUME (BEAKER) 11.5 fL 6.0-11.5 (test code = 754) NUCLEATED RED BLOOD CELLS 0 /100 WBC 0-0 (BEAKER) (test code = 413) NEUTROPHILS RELATIVE PERCENT 76 % (BEAKER) (test code = 429) LYMPHOCYTES RELATIVE PERCENT 13 % (BEAKER) (test code = 430) MONOCYTES RELATIVE PERCENT 9 % (BEAKER) (test code = 431) EOSINOPHILS RELATIVE PERCENT 1 % (BEAKER) (test code = 432) BASOPHILS RELATIVE PERCENT 1 % (BEAKER) (test code = 437) NEUTROPHILS ABSOLUTE COUNT 5.13 K/ L 1.80-8.00 (BEAKER) (test code = 670) LYMPHOCYTES ABSOLUTE COUNT 0.91 K/ L 1.48-4.50 L (BEAKER) (test code = 414) MONOCYTES ABSOLUTE COUNT (BEAKER) 0.63 K/ L 0.00-1.30 (test code = 415) EOSINOPHILS ABSOLUTE COUNT 0.06 K/ L 0.00-0.50 (BEAKER) (test code = 416) BASOPHILS ABSOLUTE COUNT (BEAKER) 0.05 K/ L 0.00-0.20 (test code = 417) IMMATURE GRANULOCYTES-RELATIVE 0 % 0-0 PERCENT (BEAKER) (test code = 2801) TSH/FREE T4 IF [id number] 05:49:32 Test Item Value Reference Range Interpretation Comments THYROID STIMULATING HORMONE 3.330 uIU/mL 0.350-5.500 (BEAKER) (test code = 772) Plating Inspector ID - LITOBASIC METABOLIC [id number] 05:45:36 Test Item Value Reference Range Interpretation Comments SODIUM (BEAKER) (test 145 meq/L 135-148 code = 381) POTASSIUM (BEAKER) 3.7 meq/L 3.6-5.5 (test code = 379) CHLORIDE (BEAKER) 100 meq/L 98-106 (test code = 382) CO2 (BEAKER) (test 35 meq/L 20-29 H code = 355) BLOOD UREA NITROGEN 15 mg/dL 10-26 (BEAKER) (test code = 354) CREATININE (BEAKER) 0.73 mg/dL 0.50-1.20 (test code = 358) GLUCOSE RANDOM 87 mg/dL 70-110 (BEAKER) (test code = 652) CALCIUM (BEAKER) 8.5 mg/dL 8.5-10.5 (test code = 697) EGFR (BEAKER) (test INSUFFIC IENT CLINICAL code = 1092) DATA TO CALCULA TE ESTIMATED GFR. Plating Inspector ID - LITOOperator ID - LITOOperator ID - LITOOperator ID - LITOOperator ID - LITOOperator ID - LITOOperator ID - LITOOperator ID - LITOOperator ID - LITOOperator ID - LITOHEPATIC FUNCTION [id number] 05:41:27 Test Item Value Reference Range Interpretation Comments TOTAL PROTEIN (BEAKER) (test code = 7.5 gm/dL 6.0-8.5 770) ALBUMIN (BEAKER) (test code = 1145) 3.0 g/dL 3.5-5.0 L BILIRUBIN TOTAL (BEAKER) (test code 1.8 mg/dL 0.1-1.2 H = 377) BILIRUBIN DIRECT (BEAKER) (test 0.9 mg/dL 0.0-0.4 H code = 706) ALKALINE PHOSPHATASE (BEAKER) (test 62 U/L 30-115 code = 346) AST (SGOT) (BEAKER) (test code = 17 U/L 5-40 353) ALT (SGPT) (BEAKER) (test code = 12 U/L 5-50 347) Plating Inspector ID - LITOOperator ID - LITOOperator ID - LITOOperator ID - LITOOperator ID - LITOOperator ID - LITOOperator ID - LITOTROPONIN [id number] 05:41:26 Test Item Value Reference Range Interpretation Comments TROPONIN I (BEAKER) (test code = 0.09 ng/mL 0.00-0.15 397) Troponin I (TnI) levels must be interpreted in the context of the presenting symptoms and the clinical findings. Elevated TnI levels indicate myocardial damage, but are not specific for ischemic heart disease. Elevated TnI levels are seen in patients with other cardiac conditions (including myocarditis and congestive heart failure), and slight TnI elevations occur in patients with other conditions, including sepsis, renal failure, acidosis, acute neurological disease, and persistent tachyarrhythmia.Plating Inspector ID - [id number] 05:41:10 Test Item Value Reference Range Interpretation Comments MAGNESIUM (BEAKER) (test code = 1.8 mg/dL 1.5-3.0 627) Plating Inspector ID - LITOOperator ID - LITOOperator ID - LITOOperator ID - MICHAEL PROTHROMBIN TIME/[id number] 05:40:48 Test Item Value Reference Range Interpretation Comments PROTIME (BEAKER) 13.0 seconds 9.3-12.0 H Final Infor mation (test code = 759) (Auto Outp ut) INR (BEAKER) (test 1.20 See_Comment Final Inf ormation code = 370) (Auto Output) [Automated mess age] The system [employer] generated this result transmitted ref erence range: <=5.90. The reference range was not used to int erpret this result as normal/abnormal . RECOMMENDED COUMADIN/WARFARIN INR THERAPY RANGESSTANDARD DOSE: 2.0 - 3.0 Includes: PROPHYLAXIS forvenous thrombosis, systemic embolization; TREATMENT for venous thrombosis and/or pulmonary embolus.HIGH RISK: Target INR is 2.5-3.5 for patients with mechanical heart valves.[id number] 05:38:10 Test Item Value Reference Range Interpretation Comments PHOSPHORUS (BEAKER) (test code = 3.4 mg/dL 2.5-4.5 604) Plating Inspector ID - LITOLACTIC ACID, [id number] 05:27:00 Test Item Value Reference Range Interpretation Comments LACTATE BLOOD 1.35 mmol/L See_Comment Specimen sligh tly VENOUS (2) (BEAKER) hemolyze d [Automated (test code = 2872) message] The system which generated this result transmit sandy reference range : 0.50-<2.00. The reference range was not used to interpr et this result as normal/abnormal . Plating Inspector ID - LITOOperator ID - LITOOperator ID - LITOOperator ID - LITORAD, CHEST, 1 VIEW, NON [id number] 04:08:00Reason for exam:->CHFShould this be performed at the bedside?->Yes [facility] : 1975 Sex: FFINAL REPORT RAD, CHEST, 1 VIEW, NON DEPT INDICATION: CHF COMPARISON: Prior day's exam FINDINGS: Portable frontal view of the chest. IMPRESSION: Examination is significantly limited by body habitus and suboptimal beam penetration.Support Lines: Enteric tube descends towards the stomach with the tip not well seen. Endotracheal tube is also not well seen and appears to te rminate within the mid thoracic trachea although the trae is obscured by overlying soft tissues. Lungs and pleura: Patchy hazy airspace opacities bilaterally compatible with edema and there are smallbilateral pleural effusions. No pneumothorax. Heart and mediastinum: Cardiomediastinal silhouette isenlarged compatible with cardiomegaly or pericardial effusion. Additional findings: None. Signed: Gopal Valenciaeport Verified Date/Time: 03/11/2022 04:08:35 RAD, ABDOMEN/KUB 1 VIEW [id number] 04:03:00Reason for exam:->NGTShould this be performed at the bedside?->Yes [facility] : 1975 Sex: FFINAL REPORT EXAM/TECHNIQUE: RAD, ABDOMEN/KUB 1 VIEW AP INDICATION: Gastric tube. COMPARISON: None. FINDINGS: Gastric tube and sidehole terminate in the expected locationof the stomach. Impression: Gastric tube and sidehole terminate in the expected location of the stomach. Signed: Ed Guerrero MDReport Verified Date/Time: 03/11/2022 04:03:12 HEMOGLOBIN [id number] 03:42:05 Test Item Value Reference Range Interpretation Comments HEMOGLOBIN A1C (BEAKER) (test code = 5.3 % 4.3-6.1 368) Plating Inspector ID - LITOB-TYPE NATRIURETIC FACTOR (BNP)2022-03-11 02:25:07 Test Item Value Reference Range Interpretation Comments B-TYPE NATRIURETIC PEPTIDE (BEAKER) 127 pg/mL 0-100 H (test code = 700) Plating Inspector ID - LITOTROPONIN [id number] 02:24:29 Test Item Value Reference Range Interpretation Comments TROPONIN I (BEAKER) (test code = 0.10 ng/mL 0.00-0.15 397) Troponin I (TnI) levels must be interpreted in the context of the presenting symptoms and the clinical findings. Elevated TnI levels indicate myocardial damage, but are not specific for ischemic heart disease. Elevated TnI levels are seen in patients with other cardiac conditions (including myocarditis and congestive heart failure), and slight TnI elevations occur in patients with other conditions, including sepsis, renal failure, acidosis, acute neurological disease, and persistent tachyarrhythmia.Plating Inspector ID - LITOCBC W/PLT COUNT & AUTO [id number] 02:23:05 Test Item Value Reference Range Interpretation Comments WHITE BLOOD CELL COUNT (BEAKER) 7.4 K/ L 4.0-10.0 (test code = 775) RED BLOOD CELL COUNT (BEAKER) 4.57 M/ L 4.00-5.00 (test code = 761) HEMOGLOBIN (BEAKER) (test code = 10.3 GM/DL 12.0-15.5 L 410) HEMATOCRIT (BEAKER) (test code = 37.7 % 36.0-46.0 411) MEAN CORPUSCULAR VOLUME (BEAKER) 82.5 fL 82.0-99.0 (test code = 753) MEAN CORPUSCULAR HEMOGLOBIN 22.5 pg 27.0-33.0 L (BEAKER) (test code = 751) MEAN CORPUSCULAR HEMOGLOBIN CONC 27.3 GM/DL 32.0-36.0 L (BEAKER) (test code = 752) RED CELL DISTRIBUTION WIDTH 18.7 % 12.0-15.0 H (BEAKER) (test code = 412) PLATELET COUNT (BEAKER) (test 284 K/CU MM 150-430 code = 756) MEAN PLATELET VOLUME (BEAKER) 10.9 fL 6.0-11.5 (test code = 754) NUCLEATED RED BLOOD CELLS 0 /100 WBC 0-0 (BEAKER) (test code = 413) NEUTROPHILS RELATIVE PERCENT 75 % (BEAKER) (test code = 429) LYMPHOCYTES RELATIVE PERCENT 15 % (BEAKER) (test code = 430) MONOCYTES RELATIVE PERCENT 8 % (BEAKER) (test code = 431) EOSINOPHILS RELATIVE PERCENT 1 % (BEAKER) (test code = 432) BASOPHILS RELATIVE PERCENT 1 % (BEAKER) (test code = 437) NEUTROPHILS ABSOLUTE COUNT 5.54 K/ L 1.80-8.00 (BEAKER) (test code = 670) LYMPHOCYTES ABSOLUTE COUNT 1.10 K/ L 1.48-4.50 L (BEAKER) (test code = 414) MONOCYTES ABSOLUTE COUNT (BEAKER) 0.62 K/ L 0.00-1.30 (test code = 415) EOSINOPHILS ABSOLUTE COUNT 0.06 K/ L 0.00-0.50 (BEAKER) (test code = 416) BASOPHILS ABSOLUTE COUNT (BEAKER) 0.04 K/ L 0.00-0.20 (test code = 417) IMMATURE GRANULOCYTES-RELATIVE 0 % 0-0 PERCENT (BEAKER) (test code = 2801) BLOOD GAS, [id number] 02:21:36 Test Item Value Reference Range Interpretation Comments PH ARTERIAL (BEAKER) (test code = 7.37 7.35-7.45 383) PCO2 ARTERIAL (BEAKER) (test code 61 mm Hg 35-45 H = 384) PO2 ARTERIAL (BEAKER) (test code = 181 mm Hg 80-90 H 385) O2 SATURATION ARTERIAL (BEAKER) 99.2 % 96.0-97.0 H (test code = 386) HCO3 ARTERIAL (BEAKER) (test code 35 mmol/L 21-29 H = 388) BASE EXCESS ARTERIAL (BEAKER) 7.6 mmol/L -2.0-3.0 H (test code = 387) PATIENT TEMPERATURE (BEAKER) (test 37.0 code = 1818) FIO2 (BEAKER) (test code = 1819) 60.0 POCT-GLUCOSE [id number] 01:51:10 Test Item Value Reference Range Interpretation Comments POC-GLUCOSE METER 88 mg/dL 70-110 : TESTED A T [facility] ([place]) (test code = [address]) [facility] 77 938: Plating Inspector/Techni hermes ID = [id number] for Dean holland, Roberta - XR CHEST 1 [id number] 17:09:00 [facility] : 1975 Sex: F Name: GRAZYNA GOMEZ [facility] : 1975 Age/S: 46 / F [id number] Unit #: [id number] Loc: [place] [id number] Phys: Darryl Haney MD Acct: [id number] Dis Date: Status: ADM IN PHONE #: [phone] Exam Date: 07/17/2021 1640 FAX #: Reason:SOB EXAMS: CPT: [id number] XR CHEST 1 V 39087 Fluoro Time: DAP (Gy m2): Air Kerma (mGy): STUDY: Chest radiograph HISTORY: Shortness of breath. COMPARISON: 07/12/2021 TECHNIQUE: Frontal v iew of the chest. SITE: [facility] [place] FINDINGS: The cardiac silhouette is enlarged, stable in size. Coronary vascular congestion persists. Left perihilar and leftbasilar opacities as well as a moderate left pleural effusion are without significant change. There is no discernible pneumothorax. IMPRESSION: No significant interval change. at 1709 Reported and signed by: Neal Gill M.D. CC: Darryl Haney MD; Astrid Olmos MD PAGE 1 Signed Report Name: GRAZYNA GOMEZ : 1975 Age/S: 46 / F [address] Unit #: [id number] Loc: [place] [address] Phys: Darryl Haney MD Acct: [id number] Dis Date: Status: ADM IN PHONE #: [phone] Exam Date: 07/17/2021 1640 FAX #: Reason: SOB EXAMS: CPT: 0402 91107 XR CHEST 1 V 63159 Fluoro Time: DAP (Gy m2): Air Kerma (mGy): <Continued> Technologist: Antonella Walker, RT(R) Trnscb Date/Time: 07/17/2021 (170) KmRH16 Orig Print D/T: S: 07/17/2021 (8741) PAGE 2 Signed Report PROTHROMBIN [id number] 06:48:00 Test Item Value Reference Range Interpretation Comments PT PATIENT (test 18.5 SECONDS 9.3-12.9 H code = PTP) INTERNATIONAL [...] (t o prevent recurre nt infarct). PROTHROMBIN [id number] 11:32:00 Test Item Value Reference Range Interpretation [...] (t o prevent recurre nt infarct). PROTHROMBIN [id number] 18:18:00 Test Item Value Reference Range Interpretation [...] o prevent recurre nt infarct). CBC W/AUTO [id number] 14:36:00 Test Item Value Reference Range Interpretation [...] code NO DIFF/SCN CRITERIA = MDIFF) RBC [id number] 14:36:00 Test Item Value Reference Range Interpretation Comments HYPOCHROMIA (test code = HYPO) 2+ ON SCAN NONE A POIKILOCYTOSIS (test code = POIK) 2+ ON SCAN NONE A ANISOCYTOSIS (test code = ANISO) 3+ NONE A MICROCYTOSIS (test code = MICR) 3+ ON SCAN NONE A ROULEAUX (test code = ROU) 1+ ON SCAN NONE A CBC W/AUTO [id number] 14:35:00 Test Item Value Reference Range Interpretation [...] NO DIFF/SCN CRITERIA = MDIFF) CBC W/AUTO [id number] 14:35:00 Test Item Value Reference Range Interpretation [...] NO DIFF/SCN CRITERIA = MDIFF) CBC W/AUTO [id number] 13:53:00 Test Item Value Reference Range Interpretation [...] code = DIFF/SCN CRITERIA MDIFF) BASIC METABOLIC [id number] 13:51:00 Test Item Value Reference Range Interpretation [...] code = CA) 8.8 MG/DL 8.5-10.1 N [id number] 13:51:00 Test Item Value Reference Range Interpretation Comments MAGNESIUM (test code = MAG) 2.1 MG/DL 1.8-2.4 N GLUCOSE BEDSIDE [id number] 13:20:00 Test Item Value Reference Range Interpretation Comments GLUCOSE BEDSIDE TESTING (test code 110 mg/dL 70-110 N = GLUBED) PROTHROMBIN [id number] 06:00:00 Test Item Value Reference Range Interpretation [...] (t o prevent recurre nt infarct). VANCOMYCIN [id number] 21:30:00 Test Item Value Reference Range Interpretation Comments VANCOMYCIN TROUGH (test code = 25.2 mcG/ML 10-20 H VANCT) PROTHROMBIN [id number] 06:22:00 Test Item Value Reference Range Interpretation [...] recurre nt infarct). - XR CHEST 1 [id number] 15:50:00 [facility] : 1975 Sex: F Name: GRAZYNA GOMEZ [facility] : 1975 Age/S: 46 / F [address] Unit #: [id number] Loc: [place] [address] Phys: Darryl Haney MD Acct: [id number] Dis Date: Status: ADM IN PHONE #: [phone] Exam Date: 07/12/2021 145 FAX #: Reason:sob EXAMS: CPT: [id number] XR CHEST 1 V 59283 Fluoro Time: DAP (Gy m2): Air Kerma [...] PAGE 1 Signed Report Name: GRAZYNA GOMEZ [place] : 1975 Age/S: 46 / F [address] Unit #: [id number] Loc: [place] [address] Phys: Darryl Haney MD Acct: [id number] Dis Date: Status: ADM INPHONE #: [phone] Exam Date: 07/12/2021 1450 FAX #: Reason: sob EXAMS: CPT: [id number] XR CHEST 1 V 26820 FluoroTime: DAP (Gy m2): Air Kerma (mGy): <Continued> Technologist: Karen Mathews, RT(R)(CT); Vignesh Redd, RT(R)(CT); .Trnscb Date/Time: 07/12/2021 (1550) t.SDR.TS14 Orig Print D/T: S: 07/12/2021 (9206) PAGE 2 Signed ReportBASIC METABOLIC PANEL 2021-07-12 [...] 8.6 MG/DL 8.5-10.1 N CA) BASIC METABOLIC [id number] 05:18:00 Test Item Value Reference Range Interpretation [...] = CA) 8.6 MG/DL 8.5-10.1 N PROTHROMBIN [id number] 05:07:00 Test Item Value Reference Range Interpretation [...] o prevent recurre nt infarct). ARTERIAL BLOOD [id number] 12:36:00 Test Item Value Reference Range Interpretation [...] (test No Circ.CHK POSITIVE code = MODALL) PaO2/[id number] 12:36:00 Test Item Value Reference Range Interpretation Comments PaO2/FiO2 (test code mm/Hg See_Comment [Autom ated message] The = GSW2OFM0) system which ge nerated this result transmit sandy reference range : 200. The reference range was not used to interpr et this result as lucila l/abnormal. ARTERIAL BLOOD [id number] 12:36:00 Test Item Value Reference Range Interpretation [...] (test No Circ.CHK POSITIVE code = MODALL) PaO2/[id number] 12:36:00 Test Item Value Reference Range Interpretation Comments PaO2/FiO2 (test 202.8 mm/Hg See_Comment [Automated message] The code = WPI2NBG6) system [facility] generated this result tra nsmitted reference range : 200. The reference r will was not used to int erpret this result as normal/abnormal . PROTHROMBIN [id number] 05:50:00 Test Item Value Reference Range Interpretation [...] o prevent recurre nt infarct). THROMBOPLASTIN TIME [id number] 05:50:00 Test Item Value Reference Range Interpretation Comments THROMBOPLASTIN TIME PARTIAL 30.5 SECONDS 26-35 N (test code = PTT) [id number] 05:50:00 Test Item Value Reference Range Interpretation [...] STS AND APPROPRIATECLIN ICAL EUALUATIONS. RULE OUT NE [id number] 05:42:00 Test Item Value Reference Range Interpretation [...] yby method. UA RFLX MICR CULT IF [id number] 05:13:00 Test Item Value Reference Range Interpretation [...] RiskForSepsis-no oth srcUA RFLX MICR CULT IF [id number] 05:11:00 Test Item Value Reference Range Interpretation [...] for culture: RiskForSepsis-no oth srcNT PRO-BRAIN NATRIURETIC [id number] 03:15:00 Test Item Value Reference Range Interpretation Comments NT PRO-BRAIN NATRIURETIC PEPTI 1759 PG/ML 0-100 H (test code = PROBNP) CBC W/AUTO [id number] 02:26:00 Test Item Value Reference Range Interpretation [...] NT WITH AUTO DIFFERENTI AL. CBC W/AUTO [id number] 02:26:00 Test Item Value Reference Range Interpretation [...] CONSISTA NT WITH AUTO DIFFERENTI AL. RBC [id number] 02:26:00 Test Item Value Reference Range Interpretation Comments HYPOCHROMIA (test code = HYPO) 1+ ON SCAN NONE ANISOCYTOSIS (test code = 1+ NONE ANISO) STOMATOCYTES (test code = STO) TRACE ON SCAN NONE CBC W/AUTO [id number] 02:26:00 Test Item Value Reference Range Interpretation [...] MANUAL DIFF REQUIRED NO DIFF/SCN CRITERIA SLIDE Ney BECKER (test code = MDIFF) CONSISTA NT WITH AUTO DIFFERENTI AL. LACTIC [id number] 01:43:00 Test Item Value Reference Range Interpretation Comments LACTIC ACID (test code = LACT) 1.2 mmol/L 0.4-2.0 N BASIC METABOLIC [id number] 01:41:00 Test Item Value Reference Range Interpretation [...] 8.5-10.1 N Completed by Nursing: NOHEPATIC FUNCTION [id number] 01:41:00 Test Item Value Reference Range Interpretation [...] N code = ALKP) Completed by Nursing: [id number] 01:41:00 Test Item Value Reference Range Interpretation [...] method. Completed by Nursing: NOCOVID 19 INHOUSE [id number] 01:36:00 Test Item Value Reference Range Interpretation Comments COVID 19 INHOUSE AG NEGATIVE Negative Per manu facturer, (test code = negative result s should [id number]) be treated aspr esumptive and, if inconsi [...] symptoms co nsistent with COVID-19. CBC W/AUTO [id number] 01:15:00 Test Item Value Reference Range Interpretation [...] DIFF/SCN CRITERIA MDIFF) - XR CHEST 1 [id number] 23:46:00 [facility] : 1975 Sex: F Name: GRAZYNA GOMEZland : 1975 Age/S: 46 / F [address] #: [id number] Loc: [place] [address] Phys: Ruddy Vargas MD Acct: [id number] Dis Date: Status: PRE ER PHONE #: [phone] Exam Date: 07/10/2021 2335 FAX #: Reason:Code Sepsis EXAMS: CPT: [id number] XR CHEST 1 V 90406 Fluoro Time: DAP (Gy m2): Air Kerma [...] GOMEZland : 1975 Age/S: 46 / F [address] Unit #: [id number] Loc: [place] [address] Phys: Ruddy Vargas Acct: [id number] Dis Date: Status: PRE ER PHONE #: [phone] Exam Date: 07/10/2021 2335 FAX #: Reason: Code Sepsis EX AMS: CPT: [id number] XR CHEST 1 V 84767 Fluoro Time: DAP (Gy m2): Air Kerma (mGy): <Continued> Technologist: RT Celeste(R) Trnscb Date/Time: 07/10/2021 (5721) KmEB14 Orig Print D/T: S: 07/10/2021 (3890) PAGE 2 Signed ReportPT/INR 2021-05-25 15:42:00 Test Item Value Reference Range Interpretation Comments PT (test code = 15.7 See_Comment H [Automated message] 5902-2) The system [employer] generated this result transmitted ref erence range: 11.7 - 1 4.5 Seconds. The re ference range was not u sed to interpret this result as normal/abnor mal. INR (test code = 1.3 Refer to INR 2.0 - 3.0 f or moderate 26006968) therapeutic ranges intensity anticoagulation 2.5 - 3.5 for high in tensity anticoagulation Lab Interpretation Abnormal (test code = 26982-5) Virgen Xgarrm21 LEAD [id number] 11:17:5812 LEAD EKG FOR [facility] Test Date: 7346-50-72Qwf Name: GRAZYNA GOMEZ Department: 5GMSPatient ID: [id number] Room: Gender: F Rehab Rn: Doc: 1975 Requested By: PUNEET LOPEZ Order Number: [id number] Reading MD: Mee Vincent MeasurementsIntervals Vancleave Rate: 101 P: CO: 0 QRS: 56QRSD: 112 T: 42QT: 381 QTc: 439 Interpretive StatementsATRIAL FIBRILLATION WITH RAPID VENTRICULAR RESPONSELOW QRS VOLTAGE IN PRECORDIAL LEADS [QRS DEFLECTION < 1.0 mVIN CHEST LEADS]MODERATE INTRAVENTRICULAR CONDUCTION DELAY [110+ ms QRS DURATION]NONSPECIFIC T-WAVE ABNORMALITYABNORMAL RHYTHM ECGReviewed by Electronically Signed On 05-25-2021 20:02:19CDT by Mee VelasqueztomySt. Clare Hospital12 LEAD [id number] 11:17:5812 LEAD EKG FOR [facility] Test Date: 9224-97-66Qfr Name: GRAZYNA GOMEZ Department: 5GMSPatient ID: [id number] Room: Gender: F Rehab Rn: CristineLois: 1975 Requested By: PUNEET LOPEZ Order Number: [id number] Reading MD: Mee Vincent MeasurementsIntervals Vancleave Rate: 101 P: CO: 0 QRS: 56QRSD: 112 T: 42QT: 381 QTc: 439 Interpretive StatementsATRIAL FIBRILLATION WITH RAPID VENTRICULAR RESPONSELOW QRS VOLTAGE IN PRECORDIAL LEADS [QRS DEFLECTION < 1.0 mVIN CHEST LEADS]MODERATE INTRAVENTRICULAR CONDUCTION DELAY [110+ ms QRS DURATION]NONSPECIFIC T-WAVE ABNORMALITYABNORMAL RHYTHM ECGReviewed by Electronically Signed On 05-25-2021 20:02:19CDT by Mee LizConem[facility] Metabolic [id number] 05:32:00 Test Item Value Reference Range Interpretation Comments Sodium (test code = 141 mmol/L 964-015 5220-2) Potassium (test code = 3.8 mmol/L 3.5-5.1 2823-3) Chloride (test code = 93 mmol/L 98-107 L 2075-0) CO2 (test code = 45 mmol/L 21-31 H 80933263) Urea Nitrogen (test 8.0 mg/dL 7-25 code = 46594793) Creatinine (test code = 0.6 mg/dL 0.6-1.2 74513127) Glucose (test code = 98 mg/dL 70-110 73232908) Calcium (test code = 9.1 mg/dL 8.6-10.3 31591982) eGFR If Am >120 See_Comment [Automat ed message] (test code = 75064704) The s ystem which generated this result transmit sandy reference range : >=90 mL/min/1.7 3 m2. The reference r will was not used to interpret this result as normal/abnormal . eGFR If non- Am 111 See_Comment [Aut omated message] (test code = 87755243) The s ystem which generated this result transmit sandy reference range : >=90 mL/min/1.7 3 m2. The reference r will was not used to interpret this result as normal/abnormal . Anion Gap (test code = 3 mmol/L 5-16 L 96026596) Lab Interpretation Abnormal (test code = 49794-3) [facility] HospitalYzziaqGufjkgtad7426-16-57 05:32:00 Test Item Value Reference Range Interpretation Comments Magnesium (test code = 42814343) 2.0 mg/dL 1.9-2.7 Lab Interpretation (test code = Normal 03054-7) [facility] HospitalCBC/Kpeu8814-00-42 05:07:00 Test Item Value Reference Range Interpretation Comments WBC (test code = 6690-2) 7.0 K/uL 4.5-11 RBC (test code = 789-8) 4.31 See_Comment [Au tomated message] The system [employer] generated this result transmit sandy reference range [...] (test code = 54.8 fL 36.4-46.3 H 17365-3) Platelet (test code = 294 K/uL 150-400 777-3) Mean Platelet Volume 10.4 fL 9.4-12.4 (test code = 04447-1) Percent NRBC (test code 0.0 % = 80788775) Neutrophil (test code = 71.0 % 34-70 H 770-8) Lymphs (test code = 15.9 % 20-50 L 736-9) Monocytes (test code = 10.3 % 5-12 5905-5) Eos (test code = 713-8) 1.6 % 0.7-5 Basos (test code = 0.9 % 0.1-1.2 706-2) Immature Granulocytes 0.3 % 0-0.5 (test code = 85765464) Neutrophils (Absolute) 4.97 K/uL 1.56-6.13 (test code = 37619396) Lymphs (Absolute) (test 1.11 K/uL 1.18-3.74 L code = 63813289) Monocytes(Absolute) 0.72 K/uL 0.24-0.36 H (test code = 79111563) Eos (Absolute) (test 0.11 K/uL 0.04-0.36 code = 27901202) Baso (Absolute) (test 0.06 K/uL 0.01-0.08 code = 81585328) Immature Grans (Abs) 0.02 K/uL 0-0.03 (test code = 07854674) Absolute NRBC (test code 0.00 K/uL = 03544580) Lab Interpretation (test Abnormal code = 48018-6) [facility] HospitalPregnancy Kjpl0179-03-17 16:53:00 Test Item Value Reference Range Interpretation Comments (test code = 15840941) Negative Negative Lab Interpretation (test code = Normal 06915-2) [facility] HospitalPTT - every 6 hours x 24 wcmaj2782-62-42 16:09:00 Test Item Value Reference Range Interpretation Comments PTT (test code = 45.1 See_Comment H The recomme nded 62387850) therapuetic ran ge is an APTT 61-103 seconds which corresponds to 0.3-0.7 anti Xa u/ml. [Automated mess age] The system [employer] generated this result transmitted ref erence range: 23.9 - 3 6.0 Seconds. The reference range was not used to int erpret this result as normal/abnormal . Lab Interpretation (test Abnormal code = 43155-7) [facility] LUNG PERFUSION IMAGING [id number] 18:46:40IMPRESSION: 1. Scan findings strongly suggest that [...] silhouette.Signed By: Crissy Dupree MD, 05/22/2021 6:46 PMAmesbury HgdxrsU-Ncgsz9038-17-06 19:13:00 Test Item Value Reference Range Interpretation Comments D-Dimer (test code = 3.22 See_Comment H Values of 73690908) quantitative D- Dimer less than 0.40 ug/mL [...] . Lab Interpretation (test Abnormal code = 48468-1) [place] RhsrbfTgzuibcoyi9851-97-19 18:55:00 Test Item Value Reference Range Interpretation Comments Color (test code = Yellow Colorless, Straw, 00731779) Yellow Clarity (test code = Clear Clear 01122960) Spec Tower, Ur (test 1.012 1.001-1.035 code = 54024140) pH, Ur (test code = 6.0 5.0-8.0 16970488) Protein, Ur (test code Negative Negative mg/dL = 69954775) Glucose, Ur (test code Negative Negative mg/dL = 53627536) Ketone, Ur (test code = Negative Negative mg/dL 43875688) Bilirubin, Ur (test Negative Negative mg/dL code = 07715275) Nitrite, Ur (test code Negative Negative = 62304858) Leukocyte (test code = Negative Negative mg/dL 00982933) Blood, Ur (test code = 1+ Negative mg/dL A 58514498) RBC (test code = 5 See_Comment H [Automated message] 63172928) The system [employer] generated this result transmit sandy reference range : 0 - 4 /HPF. The reference range was not used to interpret this result as normal/abnormal . WBC (test code = 1 See_Comment [Automated message] 14551615) The system [employer] generated this result transmit sandy reference range : 0 - 5 /HPF. The reference range was not used to interpret this result as normal/abnormal . Epithelial Cell (test <1 See_Comment [Auto mated message] code = 22232804) The system which generated this result transmit sandy reference range : <=1 /HPF. The refer ence range was not u sed to interpret th is result as normal/abnormal . Mucous (test code = Present None seen /HPF A 58297381) Urobilinogen, Ur (test <1.0 See_Comment [Aut omated message] code = 55285718) The system which generated this result transmit sandy reference range : <1.0 EU/dL. The reference range was not used to interpret this result as normal/abnormal . Lab Interpretation Abnormal (test code = 35785-1) [place] [address] LEAD ORE4393-28-92 17:44:5512 LEAD EKG FOR [facility] Test Date: 4997-36-80Cjt Name: GRAZYNA GOMEZ Department: 5520Patient ID: [id number] Room: Gender: F Rehab Rn: [id number]: 1975 Requested By: PUNEET LOPEZ Order Number: [id number] Reading MD: Mee Vincent MeasurementsIntervals Vancleave Rate: 115 P: CO: 0 QRS: 51QRSD: 116 T: 0QT: 169 QTc: 237 Interpretive StatementsATRIAL FLUTTER /TACHYCARDIA WITH RAPID VENTRICULAR RESPONSELOW QRS VOLTAGE IN PRECORDIAL LEADSMODERATE INTRAVENTRICULAR CONDUCTION DELAYNONSPECIFIC T-WAVE ABNORMALITYABNORMAL RHYTHM ECGReviewed by Electronically Signed On 05-22-2021 9:24:28 CDT by DangDang.comsaint john's aurora community hospitalModiFaceJennie Stuart Medical Centerkinkon Ckdaed15 LEAD [id number] 17:44:5512 LEAD EKG FOR [facility] Test Date: 2212-05-60Glv Name: GRAZYNA GOMEZ Department: 5520Patient ID: [id number] Room: Gender: F Rehab Rn: [id number]: 1975 Requested By: PUNEET LOPEZ Order Number: [id number] Reading MD: Mee Vincent MeasurementsIntervals Vancleave Rate: 115 P: CO: 0 QRS: 51QRSD: 116 T: 0QT: 169 QTc: 237 Interpretive StatementsATRIAL FLUTTER/TACHYCARDIA WITH RAPID VENTRICULAR RESPONSELOW QRS VOLTAGE IN PRECORDIAL LEADSMODERATE INTRAVENTRICULAR CONDUCTION DELAYNONSPECIFIC T-WAVE ABNORMALITYABNORMAL RHYTHM ECGReviewed by Electronically Signed On 05-22-2021 9:24:28 CDT by VeosearchJennie Stuart Medical CenterOsisis Global SearchTRANSTHORACIC ECHO (TTE)2021-05-21 10:14:00TRANSTHORACIC ECHO (TTE) Transthoracic Echo Report GRAZYNA GOMEZ Age: 46 Gender:F : 1975 Exam Date: 05/21/2021 06:37 [facility]am[facility] Ordering Phys: PUNEET LOPEZ Referring Phys: Reading Phys: Mee Vincent MD Fellow Phys: Fellow Phys: Family Assessment Worker: Taina Rene Reason For Exam: Indications: new afib, Other specified conduction disorders ICD-9 Codes: I45.89 Exam Type: TRANSTHORACIC ECHO (TTE) Procedure CPT: 97127 Addtional CPT: Ht (in): 67 BSA: 3.14 [...] Mass by linear method Index 101 g/m2 [facility] TRANSTHORACIC ECHO (TTE)2021-05-21 10:14:00TRANSTHORACIC ECHO (TTE) Transthoracic Echo Report GRAZYNA GOMEZ Age: 46 Gender:F : 1975 Exam Date: 05/21/2021 06:37 ExamLocation: [facility] Ordering Phys: PUNEET LOPEZ Phys: Reading Phys: Mee Vincent MD Fellow Phys: Fellow Phys: Family Assessment Worker: Taina Rene Reason For Exam: Indications: new afib, Other specified conduction disorders ICD-9 Codes: I45.89 Exam Type: TRANSTHORACIC ECHO (TTE) Procedure CPT: 72519 Addtional CPT: Ht (in): 67 BSA: 3.14 [...] Mass by linear method Index 101 g/m2 [facility] Hemoglobin [id number] 08:01:00 Test Item Value Reference Range Interpretation Comments Hemoglobin A1c (test code = 4548-4) 5.9 % 4.3-6.1 Estimated Average Glucose (test 123 mg/dL 70-110 H code = 10356999) Lab Interpretation (test code = Abnormal 74039-3) [facility] HospitalLipid Dmejeut4796-74-52 06:23:00 Test Item Value Reference Range Interpretation Comments Cholesterol (test 69.0 mg/dL See_Comment [Automate d message] code = 2093-3) The system [employer] generated this result transmit sandy reference range : <=200.0. The reference range was not used to interpret this result as normal/abnormal . Triglyceride (test 70 mg/dL <150 code = 79102445) HDL (test code = 18.0 mg/dL See Reference 2085-9) Range Narrative. LDL (test code = 37 mg/dL <100 Optimal: < 100.0 10559-2) mg/dLNear Optim al: 120-129 mg/dLBorderline : 130-159 mg/dLHi gh: 160-189 mg/dLVe ry High: >=190 mg/ dL Patient Fasting? Yes (test code = 47759835) [facility] HospitalCoronavirus, CoVID-19, [id number] 23:30:00 Test Item Value Reference Range Interpretation Comments COVID-19 Not Detected Not Detected INTERPRETATION: (SARS-COV-2) (test No detect able code = 38134-3) levels of SARS-CoV-2 Coronavirus (COVID-19) were present [...] MARIO (test code = COMMENT: This MARIO) Hologic Aptima SARS-CoV-2 molecular diagnostic assay utilizes Tappet Adjuster Mediated Amplification (TMA) technology to rapidly detect the SARS-CoV-2 (COVID-19) virus from respiratory samples. In accordance with the FDA's guidance document "Policy for Diagnostic Tests for Coronavirus Disease-2019 during the Public Health Emergency", this test was developed, and its performance characteristics were verified by the [facility] molecular diagnostics laboratory and is authorized for clinical diagnostic use. This laboratory is certified under the Clinical Laboratory Improvement Amendments (CLIA) as qualified to perform high complexity clinical laboratory testing. Lab Interpretation Normal (test code = 64579-3) [facility] CenterWayneavirus, CoVID-19, [id number] 23:30:00 Test Item Value Reference Range Interpretation Comments COVID-19 Not Detected Not Detected INTERPRETATION: (SARS-COV-2) (test No detect able code = 66516-4) levels of SARS-CoV-2 Coronavirus (COVID-19) were present [...] MARIO (test code = COMMENT: This MARIO) Hologic Aptima SARS-CoV-2 molecular diagnostic assay utilizes Tappet Adjuster Mediated Amplification (TMA) technology to rapidly detect the SARS-CoV-2 (COVID-19) virus from respiratory samples. In accordance with the FDA's guidance document "Policy for Diagnostic Tests for Coronavirus Disease-2019 during the Public Health Emergency", this test was developed, and its performance characteristics were verified by the [facility] molecular diagnostics laboratory and is authorized for clinical diagnostic use. This laboratory is certified under the Clinical Laboratory Improvement Amendments (CLIA) as qualified to perform high complexity clinical laboratory testing. Lab Interpretation Normal (test code = 77679-4) [facility] [id number] 17:27:00 Test Item Value Reference Range Interpretation Comments Free T4 (test code = 05463347) 1.04 ng/dl 0.64-1.42 Lab Interpretation (test code = Normal 12224-1) [facility] HospitalVxjgnnEHT9349-25-07 17:25:00 Test Item Value Reference Range Interpretation Comments TSH (test code = 5.13 See_Comment If , please 33086137) see the followi ng reference range s [...] . Lab Interpretation (test Normal code = 58414-7) [facility] HospitalBeta-hCG, Kkjicbalxcig5023-38-98 17:14:00 Test Item Value Reference Range Interpretation Comments hCG, Quantitative (test <1.0 See_Comment [Au tomated message] code = 71229041) The system which generated this result transmitted ref erence range: <5.0 mIU /mL. The reference r will was not used to interpret this result as normal/abnor mal. Lab Interpretation (test Normal code = 20949-7) [facility] HospitalB-Type Natriuretic Peptide (BNP)2021-05-20 17:12:00 Test Item Value Reference Range Interpretation Comments B Natriuretic Peptide 173 pg/mL See_Comment H [Auto mated message] (BNP) (test code = The syste m which 85634380) generated this result transmit sandy reference range : <=100. The refe rence range was not u sed to interpret th is result as normal/abnormal . Lab Interpretation (test Abnormal code = 52553-7) [facility] HospitalTroponin [id number] 17:11:00 Test Item Value Reference Interpretation Comments Range Troponin I (test <0.03 See_Comment [Automated code = 46291246) message] Th e system which generated this [...] patient, acute events such as myocardial infarction (NE) may be distinguished from other conditions causing [...] values. Lab Interpretation Normal (test code = 55001-7) [facility] HospitalXRAY CHEST 1 GUYV1961-73-73 16:25:32IMPRESSION: Evidence of pulmonary vascular congestion. Mild [...] study.Signed By: Francis Thompson MD, 05/20/2021 4:25 [place]Reg[place] [address] LEAD [id number] 15:54:3812 LEAD EKG FOR [facility] Test Date: 9338-57-62Eiq Name: GRAZYNA GOMEZ Department: 5520Patient ID: [id number] Room: BT POD D 09Gender: F Rehab Rn: [id number]: 1975 Requested By: NATHALIE Carrillo Number: [id number] Reading MD: nathan albert MeasurementsIntervals Vancleave Rate: 116 P: CO: 0 QRS: 26QRSD: 106 T: -6QT: 325 QTc: 394 Interpretive StatementsATRIAL FLU TTER/TACHYCARDIA WITH RAPID VENTRICULAR RESPONSELOW QRS VOLTAGE IN PRECORDIAL LEADS [QRS DEFLECTION< 1.0 mV IN CHEST LEADS]ABNORMAL RHYTHM ECGElectronically Signed On 05-20-2021 20:27:02 CDT by [employer] Studiosthomas [facility]erson university hospitalBright ThingsSt. John of God Hospital 12 LEAD [id number] 15:54:3812 LEAD EKG FOR [facility] Test Date: 2945-93-52Esa Name: GRAZYNA GOMEZ Department: 5520Patient ID: [id number] Room: POD D 09Gender: F Rehab Rn: [id number]: 1975 Requested By: NATHALIE Carrillo Number: [id number] Reading MD: nathan albert MeasurementsIntervals Vancleave Rate: 116 P: CO: 0 QRS: 26QRSD: 106 T: -6QT: 325 QTc: 394 Interpretive StatementsATRIAL FLUTTER/TACHYCARDIA WITH RAPID VENTRICULAR RESPONSELOW QRS VOLTAGE IN PRECORDIAL LEADS [QRS DEFLECTION < 1.0 mV IN CHEST LEADS]ABNORMAL RHYTHM ECGElectronically Signed On 05-20-2021 20:27:02 CDT by [employer] [facility] Studiosthomas je[facility]erson university hospitalBright ThingsLouis Stokes Cleveland VA Medical CenterBench TROPONIN I POC docked device 2021-05-20 15:42:00 Test Item Value Reference Range Interpretation Comments Troponin POC (test 0.01 ng/mL 0-0.08 Physician code = 89744045) Notified MARIO (test code = MARIO) <0.08 ng/mL Normal>=0.08 ng/mL Positive for Myocardial injuryNote: The >=0.08 ng/mL cTnI is at the 99th percentile of the non-AMI population. Lab Interpretation Normal (test code = 17665-4) [facility] TROPONIN [facility] POC docked [id number] 15:42:00 Test Item Value Reference Range Interpretation Comments Troponin POC (test 0.01 ng/mL 0.00-0.08 Physician code = 39101101) Notified MARIO (test code = MARIO) <0.08 ng/mL Normal>=0.08 ng/mL Positive for Myocardial injuryNote: The >=0.08 ng/mL cTnI is at the 99th percentile of the non-AMI population. Lab Interpretation Normal (test code = 87795-8) [facility] BMP POC docked [id number] 15:36:00 Test Item Value Reference Range Interpretation Comments Sodium POC (test code = 142 mmol/L 136-145 05802275) Potassium POC (test code 3.9 mmol/L 3.5-5.1 = 82137131) Chloride POC (test code 97 mmol/L 98-107 L = 12732712) TCO2 POC (test code = 34 mmol/L 21-32 H Physic preeti Notified 43710941) Urea Nitrogen POC (test 9 mg/dL 7-18 code = 64613177) Glucose POC (test code = 157 mg/dL 74-106 H 13320528) Hemoglobin POC (test 14.3 g/dL 12-16 code = 87583927) Hematocrit POC (test 42.0 % 37-47 code = 91738662) Lab Interpretation (test Abnormal code = 00393-0) [facility] BMP POC docked [id number] 15:36:00 Test Item Value Reference Range Interpretation Comments Sodium POC (test code = 142 mmol/L 136-145 42591051) Potassium POC (test code 3.9 mmol/L 3.5-5.1 = 78860809) Chloride POC (test code 97 mmol/L 98-107 L = 27839938) TCO2 POC (test code = 34 mmol/L 21-32 H Physic preeti Notified 71124332) Urea Nitrogen POC (test 9 mg/dL 7-18 code = 29781709) Glucose POC (test code = 157 mg/dL 74-106 H 75380090) Hemoglobin POC (test 14.3 g/dL 12-16 code = 96616013) Hematocrit POC (test 42.0 % 37.0-47.0 code = 21615277) Lab Interpretation (test Abnormal code = 72929-2) [facility] CREATININE POC docked [id number] 15:35:00 Test Item Value Reference Range Interpretation Comments Creatinine POC (test 0.6 mg/dL 0.6-1.3 Physici an Notified code = 13772556) eGFR If non- Am >90 See_Comment [Aut omated message] (test code = 39910223) The s ystem which generated this result transmit sandy reference range : >=90 mL/min/1.7 3 m2. The reference r will was not used to interpret this result as normal/abnormal . eGFR If Am (test >90 See_Comment [A utomated message] code = 03306715) The system which generated this result transmit sandy reference range : >=90 mL/min/1.7 3 m2. The reference r will was not used to interpret this result as normal/abnormal . Lab Interpretation (test Normal code = 30730-6) [facility] VBG POC docked [id number] 15:35:00 Test Item Value Reference Range Interpretation Comments pH, Ace POC (test code 7.40 7.33-7.43 = 45105745) pCO2,Ace POC (test code 53.3 See_Comment H [Au tomated = 83884599) message] The sy stem which generated this result transmitted reference range : 38 - 50 mmHg. The reference range was not used to interpret this result as normal/abnormal . PO2, Venous POC (BKR) 49 See_Comment L [Auto mated (test code = 60000939) messa ge] The system which generated this result transmitted reference range : 50 - 75 mm Hg. The reference range was not used to interpret this result as normal/abnormal . Ionized Calcium POC 1.15 mmol/L 1.15-1.29 (test code = 86291995) HCO3, Ace POC (test 33 mmol/L 22-26 H code = 01836521) TCO2 POC (test code = 34 mmol/L 21-32 H 26938081) Base Excess Ace POC 6 mmol/L (test code = 24132054) Sample Type (test code IVEN Physi hermes Notified = 18959536) % Sat, Ace POC (test 83 % code = 84792829) Lab Interpretation Abnormal (test code = 75902-5) [facility] CREATININE POC docked [id number] 15:35:00 Test Item Value Reference Range Interpretation Comments Creatinine POC (test 0.6 mg/dL 0.6-1.3 Physici an Notified code = 30878663) eGFR If non- Am >90 See_Comment [Aut omated message] (test code = 48550772) The s ystem which generated this result transmit sandy reference range : >=90 mL/min/1.7 3 m2. The reference r will was not used to interpret this result as normal/abnormal . eGFR If Am (test >90 See_Comment [A utomated message] code = 93434964) The system which generated this result transmit sandy reference range : >=90 mL/min/1.7 3 m2. The reference r will was not used to interpret this result as normal/abnormal . Lab Interpretation (test Normal code = 43390-2) [facility] VBG POC docked [id number] 15:35:00 Test Item Value Reference Range Interpretation Comments pH, Ace POC (test code 7.40 7.33-7.43 = 03895487) pCO2,Ace POC (test code 53.3 See_Comment H [Au tomated = 73893375) message] The sy stem which generated this result transmitted reference range : 38 - 50 mmHg. The reference range was not used to interpret this result as normal/abnormal . PO2, Venous POC (BKR) 49 See_Comment L [Auto mated (test code = 32282282) messa ge] The system which generated this result transmitted reference range : 50 - 75 mm Hg. The reference range was not used to interpret this result as normal/abnormal . Ionized Calcium POC 1.15 mmol/L 1.15-1.29 (test code = 98260420) HCO3, Ace POC (test 33 mmol/L 22-26 H code = 13419606) TCO2 POC (test code = 34 mmol/L 21-32 H 25515995) Base Excess Ace POC 6 mmol/L (test code = 22599556) Sample Type (test code IVEN Physi hermes Notified = 07725303) % Sat, Ace POC (test 83 % code = 17599365) Lab Interpretation Abnormal (test code = 53159-8) [facility]il[facility]41 LEAD [id number] 15:23:0612 LEAD EKG FOR [facility] Test Date: 1353-58-13Wpt Name: GRAZYNA GOMEZ Department: 5520Patient ID: [id number] Room: Gender: F Rehab Rn: [id number]: 1975 Requested By: NATHALIE Carrillo Number: [id number] Reading MD: nathan albert MeasurementsIntervals Vancleave Rate: 191 P: CO: 0 QRS: 30QRSD: 97 T: 0QT: 196 QTc: 294 Interpretive StatementsATRIAL FIBRILLATION WI TH RAPID VENTRICULAR RESPONSELOW QRS VOLTAGE IN PRECORDIAL LEADS [QRS DEFLECTION < 1.0 mV IN CHEST LEADS]MODERATE ST DEPRESSION [0.05+ mV ST DEPRESSION]CRITICAL TEST RESULTElectronically Signed On 05-20-2021 15:43:36 CDT by ab [facility] [id number] 15:23:0612 LEAD EKG FOR [facility] Test Date: 8612-40-95Alp Name: GRAZYNA GOMEZ Department: 5520Patient ID: [id number] Room: Gender: F Rehab Rn: [id number]: 1975 Requested By: NATHALIE Carrillo Number: [id number] Reading MD: nathan albert MeasurementsIntervals Vancleave Rate: 191 P: CO: 0 QRS: 30QRSD: 97 T: 0QT: 196 QTc: 294 Interpretive StatementsATRIAL FIBRILLATION WITH RAPID VENTRICULAR RESPONSELOW QRS VOLTAGE IN PRECORDIAL LEADS [QRS DEFLECTION < 1.0 mV IN CHEST LEADS]MODERATE ST DEPRESSION [0.05+ mV ST DEPRESSION]CRITICAL TEST RESULTElectronically Signed On 05-20-2021 15:43:36 CDT by KaritKarmamarielittleBits ElectronicsAlexeyrust TheOfficialBoardBench GLUCOSE POC docked [id number] 13:06:00 Test Item Value Reference Range Interpretation Comments Glucose POC (test code = 80716677) 105 mg/dL 74-106 Lab Interpretation (test code = Normal 24990-9) [facility] [id number] 13:06:00 Test Item Value Reference Range Interpretation Comments Glucose POC (test code = 14028259) 105 mg/dL 74-106 Lab Interpretation (test code = Normal 69596-6) [facility] HospitalKycmjjOxozkfcbhu7408-95-53 05:55:00 Test Item Value Reference Range Interpretation Comments Phosphorus (test code = 2777-1) 3.3 mg/dL 2.5-5 Lab Interpretation (test code = Normal 92795-6) [facility] HospitalDifferential, Dlgsvb4932-11-57 10:07:00 Test Item Value Reference Range Interpretation Comments Neutrophil (test code = 26393872) 80.0 % 34-70 H Lymphs (test code = 55630329) 14.0 % 20-50 L Monocytes (test code = 04624278) 6.0 % 5-12 Eos (test code = 84209113) 0.0 % 0.7-5 L Basos (test code = 55126927) 0.0 % 0.1-1.2 L Neutrophils (Absolute) (test code = 7.03 K/uL 1.56-6.13 H 97922078) Lymphs (Absolute) (test code = 1.23 K/uL 1.18-3.74 16089908) Monocytes(Absolute) (test code = 0.53 K/uL 0.24-0.36 H 90849767) Eos (Absolute) (test code = 0.00 K/uL 0.04-0.36 L 23206619) Baso (Absolute) (test code = 0.00 K/uL 0.01-0.08 L 07050541) Large Platelets (test code = 2+ None seen A 79126924) Platelet Clumps (test code = Present None seen A 72580620) Hypochromia (test code = 49871580) 3+ None seen A Ovalocyte (test code = 89883950) 2+ None seen A Stomatocyte (test code = 30482371) 2+ None seen A Cells Counted (test code = 25295433) Lab Interpretation (test code = Abnormal 62276-3) [facility] HospitalComprehensive Metabolic Uhlkf3649-82-15 06:36:00 Test Item Value Reference Range Interpretation Comments Sodium (test code = 141 mmol/L 841-721 3940-2) Potassium (test code = 3.8 mmol/L 3.5-5.1 2823-3) Chloride (test code = 98 mmol/L 98-107 2075-0) CO2 (test code = 38 mmol/L 21-31 H 42596225) Glucose (test code = 113 mg/dL 70-110 H 53332129) Calcium (test code = 8.2 mg/dL 8.6-10.3 L 58999095) Urea Nitrogen (test 9.0 mg/dL 7-25 code = 98891965) Creatinine (test code = 0.6 mg/dL 0.6-1.2 06412447) Alkaline Phosphatase 38 U/L 34-104 (test code = 72714754) ALT (test code = 11 U/L 7-52 06100246) AST (test code = 12 U/L 13-39 L 32288200) Total Protein (test 6.8 g/dL 6-8.3 code = 2885-2) eGFR If non- Am >90 See_Comment [Aut omated message] (test code = 90199139) The s ystem which generated this result transmit sandy reference range : >=90 mL/min/1.7 3 m2. The reference r will was not used to interpret this result as normal/abnormal . Albumin (test code = 3.1 g/dL 3.7-5.3 L 19655-1) Anion Gap (test code = 5 mmol/L 5-16 87282637) Lab Interpretation Abnormal (test code = 45698-7) [facility] HospitalBlood Gas, [id number] 04:33:00 Test Item Value Reference Range Interpretation Comments Temperature (test code 37.0 degree C = 89244819) pH, Venous (test code = 7.36 7.33-7.43 49926055) pCO2, Venous (test code 71.3 See_Comment HH [Au tomated = 71424625) message] The sy stem which generated this result transmitted reference range : 38 - 50 mm Hg. The reference range was not used to interpret this result as normal/abnormal . pO2, Venous (test code 54.8 See_Comment [Aut omated = 80559959) message] The sy stem which generated this result transmitted reference range : 50 - 75 mm Hg. The reference range was not used to interpret this result as normal/abnormal . Base Excess, Venous 13.2 mmol/L -2.5-2.5 H (test code = 98949460) HCO3, Venous (test code 39.2 mmol/L 22-26 H = 53756702) % Sat, Venous (test 86.6 % 60-85 H code = 29665768) Lab Interpretation Abnormal (test code = 79716-1) [facility] HospitalHgb/Bfs8190-58-65 22:29:00 Test Item Value Reference Range Interpretation Comments Hemoglobin (test code = 718-7) 7.5 g/dL 12-16 L Hematocrit (test code = 4544-3) 32.0 % 37-47 L Lab Interpretation (test code = Abnormal 07378-1) [facility] RBC Units, 1 [id number] 12:35:00 Test Item Value Reference Range Interpretation Comments RBC UNITS (test code = compatible 79552734) Unit ABO Type (test code = O 50155031) Unit Rh Type (test code = POS 75228682) Product Code (test code = E0336 03752235) Unit Number (test code = [id number] 55431428) Unit Status (test code = transfused 08301131) ISBT Product Code (test code = Y0992V23 34501) Blood Type (test code = 82242) 5100 Blood Expiration Date (test code = 22251) [facility] RBC Units, Qzzbe5496-06-78 12:35:00 Test Item Value Reference Range Interpretation Comments RBC UNITS (test code = compatible 89377295) Unit ABO Type (test code = O 07310300) Unit Rh Type (test code = POS 84516331) Product Code (test code = E0336 25538044) Unit Number (test code = [id number] 30425205) Unit Status (test code = transfused 81671721) ISBT Product Code (test code = A9809A18 32679) Blood Type (test code = 34110) 5100 Blood Expiration Date (test code = 72945) [facility] HospitalVitamin [id number] 08:32:00 Test Item Value Reference Range Interpretation Comments Vitamin B12 (test code 351 pg/mL See comment Luicla l: 180-914 = 16011573) pg/mLIntermitte nt: 145-180 pg/mLDeficient: <=145.0 pg/mL [facility] HospitalLegionella Antigen, [id number] 08:20:00 Test Item Value Reference Range Interpretation Comments Legionella Ag, Ur (test code = Negative Negative 18289-8) Lab Interpretation (test code = Normal 71599-4) [facility] HospitalStrep Pneumo Ag, Bvrla4199-61-42 01:40:00 Test Item Value Reference Range Interpretation Comments S. pneumo Ur Antigen (test code = Negative Negative 88560-6) Lab Interpretation (test code = Normal 31868-7) [facility] HospitalTRANSTHORACIC ECHO (TTE)2021-02-13 13:02:00TRANSTHORACIC ECHO (TTE) Transthoracic Echo Report GRAZYNA GOMEZ Age: 45 Gender:F : 1975 Exam Date: 02/13/2021 08:08 ExamLocation: [facility] Ordering Phys: MARBELLA ALLAN Referring Phys: [id number] Reading Phys: Mee Vincent MD Fellow Phys: Fellow Phys: Family Assessment Worker:Isma Nunez Reason For Exam: Indications: Obstructive sleep apnea, rule out pulmonary hypertension, Other secondary pulmonary hypertension, Morbid (severe) obesity due to excess calories ICD-9 Codes: I27.2 E66.01 Exam Type: TRANSTHORACIC ECHO (TTE) Procedure CPT: 12056 Addtional CPT: Ht (in): 67 BSA: 3.38 [...] Mass by linear method Index 102 g/m2 [facility]2021-[facility]-13 13:02:00TRANSTHORACIC ECHO (TTE) Transthoracic Echo Report GRAZYNA GOMEZ Age: 45 Gender:F : 1975 Exam Date: 02/13/2021 08:08 ExamLocation: [facility] Ordering Phys: MARBELLA ALLAN Referring Phys: [id number] Reading Phys: Mee Vincent MD Fellow Phys: Fellow Phys: Family Assessment Worker:Isma Nunez Reason For Exam: Indications: Obstructive sleep apnea, rule out pulmonary hypertension, Other secondary pulmonary hypertension, Morbid (severe) obesity due to excess calories ICD-9 Codes: I27.2 E66.01 Exam Type: TRANSTHORACIC ECHO (TTE) Procedure CPT: 09881 Addtional CPT: Ht (in): 67 BSA: 3.38 [...] Mass by linear method Index 102 g/m2 [facility] GeneralT&S Dupmjxzryc4358-70-09 06:58:00 Test Item Value Reference Range Interpretation Comments Specimen Expiration (test 02/16/2021 23:59 code = 88803628) ABO/RH (test code = O POS 05651732) Antibody Screen (test code = NEG 76483247) [facility]AB[facility]RH LDYCOYGFCIYR6616-97-66 06:57:00 Test Item Value Reference Range Interpretation Comments ABO/RH (test code = 26629294) O POS [facility] HospitalIron Qexlpjy2546-31-24 03:07:00 Test Item Value Reference Range Interpretation [...] MARIO (test code = MARIO) Performed at: [address] [place] [address] [id number] Director: Denis Lugo MD, Phone: [phone] Lab Interpretation Abnormal (test code = 34262-6) [facility] HospitalDmvsupEyjzomyi8501-91-11 05:33:00 Test Item Value Reference Range Interpretation Comments Ferritin (test code = 26981576) <10.0 11-306.8 L Lab Interpretation (test code = Abnormal 84775-4) [facility] HospitalHepatitis C Virus Ab [id number] 05:27:00 Test Item Value Reference Range Interpretation Comments Hepatitis C Virus (HCV) Antibody Negative Negative (test code = 66550-8) Lab Interpretation (test code = Normal 98637-3) [facility] HospitalHIV-1/HIV-2 Routine Fjtfoxdrp7074-59-06 05:26:00 Test Item Value Reference Range Interpretation Comments HIV Ag/Ab Combo (test code = Negative Negative 48411-2) Lab Interpretation (test code = Normal 10765-6) [facility] HospitalU/S ABDOMEN NVIYQGV8016-35-18 19:55:26IMPRESSION:Limited evaluation due to bowel gas and [...] report.Signed By: Francis Thompson MD, 02/11/2021 7:55 PMHarrust EveixfKagold8763-17-44 18:55:00 Test Item Value Reference Range Interpretation Comments Lipase (test code = 72857366) 24 U/L 82 Lab Interpretation (test code = Normal 03257-4) [facility] HospitalLiver Nzpbxbv2616-78-61 18:55:00 Test Item Value Reference Range Interpretation Comments Bilirubin, Total (test code = 1.5 mg/dL 0.2-1.2 H 2885-2) Alkaline Phosphatase (test code = 44 U/L 34-104 51137683) AST (test code = 01512898) 13 U/L 13-39 Direct Bilirubin (test code = 0.6 mg/dL 0-0.2 H 1968-7) ALT (test code = 34128746) 9 U/L 7-52 Albumin (test code = 97607-3) 3.3 g/dL 3.7-5.3 L Lab Interpretation (test code = Abnormal 23377-5) [facility] HospitalXRAY CHEST 2 [id number] 18:34:30IMPRESSION: Limited exam. Opacified left lung base could represent atelectasis, pneumonia, and/oreffusion in the appropriate clinical context. Chest CT with contrast canbetter characterize this, if clinically indicated. Dictated By: Percy Cho MD, 02/11/2021 6:00 PM I have reviewed the study and agreewith the findings in this report. Signed By: Francis Thompson MD, 02/11/2021 6:34 PM Interface, Jose/MammRick - 02/11/2021 6:39 PM CDT EXAMINATION: XRAY [...] report.Signed By: Francis Thompson MD, 02/11/2021 6:34 PMHarris Hovhhv56 LEAD [id number] 17:19:2512 LEAD EKG FOR [facility] Test Date: 2609-18-10Vxb Name: GRAZYNA GOMEZ Department: 5520Patient ID: [id number] Room: Gender: F Rehab Rn: [id number]: 1975 Requested By: MATY Lira Number: [id number] Reading MD: Mee Vincent MeasurementsIntervals Vancleave Rate: 78 P: -15PR: 107 QRS: 38QRSD: 109 T: 68QT: 364 QTc: 417 Interpretive StatementsSINUS RHYTHM WITH SHORT CO INTERVALLOW QRS VOLTAGE IN PRECORDIAL LEADS [QRS DEFLECTION < 1.0 mV IN CHEST LEADS]NONSPECIFIC T-WAVE ABNORMALITYElectronically Signed On 02-11-2021 19:11:55 CDT by Publish2 [facility]12 LEAD [id number] 17:19:2512 LEAD EKG FOR [facility] Test Date: 5547-99-12Ngu Name: GRAZYNA DILLONALES Department: 5520Patient ID: [id number] Room: Gender: F Rehab Rn: [id number]: 1975 Requested By: MATY Lira Number: [id number] Reading : Mee Vincent MeasurementsIntervals Vancleave Rate: 78 P: -15PR: 107 QRS: 38QRSD: 109 T: 68QT: 364 QTc: 417 Interpretive StatementsSINUS RHYTHM WITH SHORT CO INTERVALLOW QRS VOLTAGE IN PRECORDIAL LEADS [QRS DEFLECTION < 1.0 mV IN CHEST LEADS]NONSPECIFIC T-WAVE ABNORMALITYElectronically Signed On 02-11-2021 19:11:55 CDT by [facility]St[facility]
[2022-03-29 05:33] LABS: Absolute Lymphocytes (CBC) 1.3 K/uL (0.7-4.9); Lymphocytes % 19.3 % (15.3-44.8); MPV 8.1 fL (7.6-11.3); RBC Red Blood Cell Count 4.77 M/uL (3.86-4.86)
[2022-03-29 05:50] LABS: Albumin 2.8 g/dL (3.4-5.0); Magnesium 1.9 mg/dL (1.8-2.4); Potassium 3.7 mmol/L (3.5-5.1); Prealbumin 14.3 mg/dL (20-40)
--- NOTE | 2022-03-29 07:40 | RAD REPORT ---
EXAM DESCRIPTION: RAD - Chest Single View - 03/29/2022 6:36 am CLINICAL HISTORY: hx of pna plueral effusion COMPARISON: Chest Single View dated 03/10/2022; Chest Single View dated 11/30/2021; Chest Single View dated 09/16/2021; Chest Single View dated 09/03/2021 FINDINGS: Lines: Interval extubation and removal of the NG tube. Lungs: Improved aeration of the lungs bilaterally, though the improvement is primarily on the right. Pulmonary edema has improved. Retrocardiac airspace disease is again noted. . Pleural: Pleural effusions noted. Cardiac: Cardiomegaly. Bones: No acute fractures. Other: IMPRESSION: Improved aeration of the lungs, particularly involving the right lung. This may be due t o improving edema and/or pneumonia.
[2022-03-29] MEDS: NYSTATIN PWDR 100000 UNIT/GM TOP SCH ×2 (08:00→20:23)
[2022-03-29] MEDS: METOPROLOL XL 25 MG TAB PO SCH (09:47)
[2022-03-29] MEDS: APIXABAN 5 MG TABLET PO SCH ×2 (09:47→20:21)
[2022-03-29] MEDS: GABAPENTIN 100 MG CAP PO SCH ×2 (09:47→20:21)
[2022-03-29] MEDS: BUSPIRONE HCL 15 MG TABLET PO SCH (09:48)
[2022-03-29] MEDS: SACUBITRIL/VALSARTAN 24/26 MG TAB PO SCH ×2 (09:48→20:21)
[2022-03-29] MEDS: AMIODARONE HCL 200 MG TAB PO SCH ×2 (09:49→20:21)
[2022-03-29] MEDS: DOXYCYCLINE 100 MG CAP PO SCH ×2 (11:22→20:21)
[2022-03-29] MEDS: FUROSEMIDE 20 MG TABLET PO SCH (11:25)
[2022-03-29] MEDS ORDERED: D50W 25 GM/50 ML SYRINGE IV PRN (20:11)
[2022-03-29] MEDS ORDERED: DOCUSATE NA/SENNA CONC 1 TAB PO PRN (20:11)
[2022-03-29] MEDS ORDERED: ACETAMINOPHEN 500 MG TAB PO PRN (20:11)
[2022-03-29] MEDS ORDERED: GLUCAGON 1 MG/VIAL IM PRN (20:11)
[2022-03-29] MEDS ORDERED: ACETAMINOPHEN 500 MG TAB ONE (20:24)
[2022-03-30 05:50] LABS: Urine Appearance Clear (Clear); Urine Bilirubin Negative (Negative); Urine Blood Trace-intact (Negative); Urine Color Yellow (Yellow); Urine Glucose Negative (Negative); Urine Protein Trace (Negative); Urine Specific Gravity 1.025 (1.005-1.030); Urine Urobilinogen 0.2 mg/dL (0.2-1.0)
[2022-03-30 06:04] LABS: Urine Microscopic Reflex ORDER UMIC
[2022-03-30 06:21] LABS: Urine Bacteria 20-50 /HPF (<20); Urine Mucus 2+ /HPF (NONE SEEN)
[2022-03-30] MEDS: INSULIN -REGULAR HUMAN 50 UNIT/0.5 ML ML SQ SCH ×4 (07:30→20:24)
[2022-03-30] MEDS: NYSTATIN PWDR 100000 UNIT/GM TOP SCH ×2 (08:00→20:23)
[2022-03-30] MEDS: APIXABAN 5 MG TABLET PO SCH ×2 (09:00→20:24)
[2022-03-30] MEDS: DOXYCYCLINE 100 MG CAP PO SCH ×2 (09:01→20:24)
[2022-03-30] MEDS: SACUBITRIL/VALSARTAN 24/26 MG TAB PO SCH ×2 (09:03→20:24)
[2022-03-30] MEDS: FUROSEMIDE 20 MG TABLET PO SCH (09:04)
[2022-03-30] MEDS: GABAPENTIN 100 MG CAP PO SCH ×2 (09:04→20:24)
[2022-03-30] MEDS: AMIODARONE HCL 200 MG TAB PO SCH ×2 (09:05→20:24)
[2022-03-30] MEDS: BUSPIRONE HCL 15 MG TABLET PO SCH (09:05)
[2022-03-30] MEDS: METOPROLOL XL 25 MG TAB PO SCH (09:06)
[2022-03-30] MEDS ORDERED: D10W 125 ML IV PRN (12:18)
[2022-03-30] MEDS: CRANBERRY FRUIT EXTRACT 400 MG CAP PO SCH (20:25)
[2022-03-31] MEDS: INSULIN -REGULAR HUMAN 50 UNIT/0.5 ML ML SQ SCH ×4 (07:30→21:00)
[2022-03-31] MEDS: FUROSEMIDE 20 MG TABLET PO SCH (07:51)
[2022-03-31] MEDS: SACUBITRIL/VALSARTAN 24/26 MG TAB PO SCH ×2 (07:51→21:09)
[2022-03-31] MEDS: BUSPIRONE HCL 15 MG TABLET PO SCH (07:52)
[2022-03-31] MEDS: CRANBERRY FRUIT EXTRACT 400 MG CAP PO SCH ×2 (07:52→21:08)
[2022-03-31] MEDS: GABAPENTIN 100 MG CAP PO SCH ×2 (07:52→21:08)
[2022-03-31] MEDS: DOXYCYCLINE 100 MG CAP PO SCH ×2 (07:52→21:08)
[2022-03-31] MEDS: AMIODARONE HCL 200 MG TAB PO SCH ×2 (07:53→21:09)
[2022-03-31] MEDS: APIXABAN 5 MG TABLET PO SCH ×2 (07:53→21:08)
[2022-03-31] MEDS: METOPROLOL XL 25 MG TAB PO SCH (10:08)
[2022-03-31] MEDS: NYSTATIN PWDR 100000 UNIT/GM TOP SCH ×2 (12:24→21:08)
[2022-03-31] MEDS ORDERED: BISACODYL 10 MG RECTAL SUPP PR PRN (13:45)
[2022-03-31] MEDS ORDERED: IPRATROPIUM BROM 0.5MG/2.5ML NEB PRN (13:46)
[2022-03-31] MEDS ORDERED: LEVALBUTEROL 0.63 MG/3 ML NEB NEB PRN (13:47)
--- NOTE | 2022-03-31 17:57 | R.HP ---
HISTORY AND PHYSICAL FACILITY: [facility] ENCOUNTER DATE AND TIME: 03/29/2022 19:49 (CDT) MR#: [id number] NAME GRAZYNA GOMEZ ADDRESS: [address] [place] [address] CITY: [place]IP [address] PHONE: DATE OF : 1975 AGE: 46 SSN# [id number] GENDER: Female DEXTERITY Unknown dexterity MARITAL STATUS Single (Never ) [facility] PRE-HOSPITAL LIVING SETTING 01 - Home (private home/apt. board/care, assisted living, skilled nursing, transitional living) PRE-HOSPITAL LIVING WITH Family/Relatives ENCOUNTER PHYSICIAN: Dr. Eulogio Garcia M.D. REFERRING DOCTOR: cass Martinez DATE OF ADMISSION: 03/29/2022 19:49 (CDT) REFERRING FACILITY [facility] HOME TYPE AND DETAILS: Type of home: apartment # of levels in the residence: 1 # of steps within the residence: 0 # of steps to enter the residence: 0 ONSET DATE: 03/11/2022 PRIMARY DIAGNOSIS-RELATED SURGERIES: No surgeries related to the primary diagnosis were performed. SECONDARY/COMORBID DIAGNOSES (TIERED): - Tier 3 Morbid (severe) obesity due to excess calories (E66.01) HISTORY OF PRESENT ILLNESS (HPI): Pt. is a 46 yo female. On 03/11/2022 she was admitted to [facility] with diagnosis J96.01 Chronic Hypoxemic Respira tory Failure. Her impairment category is Medically Complex Conditions 17 - Respiratory Disorders - Non-ventilator Dependent (17.52). Pre-morbidly, Pt. was independent/mod-I in Locomotion, Self-Care, and Safety Awareness; and she had g ood Balance, Transfers Control, and Endurance. Currently, she has deficits of Locomotion, Safety Awareness, Balance, Self-Care, and Endurance. Pt. is now referred to [facility] for acute in-patient rehabilitation in order to maximize patient's functional independence in activities of daily living, strength, ROM, and mobi lity. Patient has realistic goal of being discharged at assistance level 7-Ind to reside at Home with Fami ly/Relatives. MEDICATION ALLERGIES: No Known Drug Allergies (NKDA) ENVIRONMENTAL ALLERGIES: - Substance Allergies None Known - Other Allergies Penicillin PAST MEDICAL HISTORY: Morbid (severe) obesity due to excess calories (E66.01) Asthma (J45) Chronic systolic (congestive) heart failure (I50.22) Prediabetes (R73.03) Atrial Fibrillation with RVR Acute respiratory failure with hypoxia (J96.01) Obesity hypoventilation syndrome Hypertension PAST SURGICAL HISTORY: None SOCIAL HISTORY: - Home Living Family/Relatives REVIEW OF SYSTEMS: - Gen No Chills Fatigue No Fever - Eyes No Double Vision No itchiness - ENMT No Difficulty Swallowing - CVS Chest Discomfort No Chest Pain No Fatigue No Weight Gain - Resp No Cough Shortness of Breath - GI Continent No Abdominal Pain No Constipation No Diarrhea - Continent No Kidney Pain No Painful Urination No Urinary Urgency - MSK No Joint Pain Muscle Cramps Stiffness - Skin No Itching No Rash No Suspicious Lesions - Neuro Coordination Difficulty Difficulty with Concentration No Memory Loss No Seizures Weakness - Psych No Anxiety No Depression No HIV Exposure No Persistent Infections No Seasonal Allergies - Endo No Cold/Heat Intolerance No Excessive Hunger No Excessive Thirst No Excessive Urination PHYSICAL EXAM - Gen Alert and awake Lying in bed No apparent distress Oriented to: person, time, and place - Skin No skin breakdown. No abnormalities - Eyes No abnormalities - ENMT No abnormalities - Neck No abnormalities - CVS RRR - Chest Mildly decreased breath sounds bilaterally. - Resp No wheezing - Abd Obese, soft, nontender - GI nondistended Deferred - No abnormalities - Ext Mild bilateral lower extremity edema. - MSK 4+/5 weakness in both lower extremities. - Neuro No focal deficits VITAL SIGNS Temperature: 98.5 F SBP/DBP: 116/65 Pulse: 94 Resp: 16 NURSING: - Shower allowing shower PRECAUTIONS: - Fall Precaution Bed alarm TABS alarm Wheel chair alarm - Incontinence Bowel Incontinence - DVT Risk due to restricted mobility and obesity - Skin Breakdown Risk due to restricted mobility and age - Cardiac Precaution Monitor blood pressure, heart rate, lower extremity edema, notify MD for shortness of breath or chest pain Monitor patient for excessive elevation of heart rate and blood pressure during therapy Nursing and Therapy to monitor pt before and after therapy sessions for signs of Chest pain - Aspiration Precaution Seated at 90 degrees while eating and 30 minutes after meals ACTIVITIES OOB only with supervision QI SCORES: - Self-Care A. Eating 88-Not attempted due to medical condition or safety concerns B. Oral hygiene 04-Supervision or touching assistance C. Toileting hygiene 88-Not attempted due to medical condition or safety concerns E. Shower/bathe self 88-Not attempted due to medical condition or safety concerns F. Upper body dressing 03-Partial/moderate assistance G. Lower body dressing 02-Substantial/maximal assistance H. Putting on/taking off footwear 02-Substantial/maximal assistance - Mobility A. Roll left and right 02-Substantial/maximal assistance B. Sit to lying 02-Substantial/maximal assistance C. Lying to sitting on side of bed 02-Substantial/maximal assistance D. Sit to stand 02-Substantial/maximal assistance E. Chair/[id number] transfer 02-Substantial/maximal assistance F. Toilet transfer 88-Not attempted due to medical condition or safety concerns G. Car transfer 88-Not attempted due to medical condition or safety concerns I. Walk 10 feet 88-Not attempted due to medical condition or safety concerns J. Walk 50 feet with two turns 88-Not attempted due to medical condition or safety concerns K. Walk 150 feet 88-Not attempted due to medical condition or safety concerns L. Walking 10 feet on uneven surfaces 88-Not attempted due to medical condition or safety concerns M. 1 step (curb) 88-Not attempted due to medical condition or safety concerns N. 4 steps 88-Not attempted due to medical condition or safety concerns O. 12 steps 88-Not attempted due to medical condition or safety concerns P. Picking up object 88-Not attempted due to medical condition or safety concerns R. Wheel 50 feet with two turns 88-Not attempted due to medical condition or safety concerns S. Wheel 150 feet 88-Not attempted due to medical condition or safety concerns - Bladder and Bowel Bladder continence 9-Not applicable Bowel continence 2-Frequently incontinent - Endurance Poor - Balance Poor - Safety Awareness Poor CURRENT FUNC. DEFICITS: Mobility, Endurance, Balance, Safety Awareness, and Self-Care MEDICATIONS: - Other See attached MAR (Medication Administration Record) ASSESSMENT: Pt. is a 46 yo female.On 03/11/2022 she was admitted to [facility] with diagnosis J 96.01 Chronic Hypoxemic Respiratory Failure.Her impairment category is Medically Complex Conditions 1 7 - Respiratory Disorders - Non-ventilator Dependent (17.52).Pre-morbidly, Pt. was independent/mod-I in Locomotion, Self-Care, and Safety Awareness; and she had good Balance, Transfers Control, and End urance.Currently, she has deficits of Locomotion, Safety Awareness, Balance, Self-Care, and Endurance .Pt. is now referred to [facility] for acute in-patient rehabilitation in [facility] to maximize patient's functional independence in activities of daily living, strength, ROM, and mob ility.- Rehab Goal Patient has realistic goal of being discharged at assistance level 7-Ind to reside at Home with Fami ly/Relatives. - Physical Therapy Gait dysfunction - to improve, our physical therapists will perform initial evaluation of pt's status upon admission and devise an individualized program for Gait Training, and Wheel Chair mobility Need for home safety evaluation - to improve, our physical therapists will perform initial evaluation of pt's status upon admission and devise an individualized program for Home Evaluation Need in caregiver upon discharge - to improve, our physical therapists will perform initial evaluatio n of pt's status upon admission and devise an individualized program for Caregiver Training New precaution - to improve, our physical therapists will perform initial evaluation of pt's status u cris admission and devise an individualized program for Patient precaution education Edema - to improve, our physical therapists will perform initial evaluation of pt's status upon admi ssion and devise an individualized program for Elevation Training, and Lymphedema Therapy Poor balance - to improve, our physical therapists will perform initial evaluation of pt's status upo n admission and devise an individualized program for Balance Training Poor endurance - to improve, our physical therapists will perform initial evaluation of pt's status u cris admission and devise an individualized program for Endurance Training Weakness - to improve, our physical therapists will perform initial evaluation of pt's status upon ad mission and devise an individualized program for Aquatic Therapy, Neuromuscular Reeducation, and Stre ngthening Achieving independence - to improve, our physical therapists will perform initial evaluation of pt's status upon admission and devise an individualized program for Community Reintegration Activities - Occupational Therapy ADL deficits - to improve, our occupation therapists will perform initial evaluation of pt's status u cris admission and devise an individualized program for Bathing, Bed mobility, Community Reintegration , Cooking, Dressing, Eating, Fine Motor Skills, Grooming, Homemaking, Kitchen Mobility, Laundry, Uzma ent Education, Safety Awareness, Splinting - Positioning, Transfers(Toilet, Tub, Shower), and Wheel C hair Management Need for professional healthcare representative - to improve, our occupation therapists will perform initial evaluation of pt's s tatus upon admission and devise an individualized program for Caregiver Training Weakness - to improve, our occupation therapists will perform initial evaluation of pt's status upon admission and devise an individualized program for Aquatic Therapy, Balance, Endurance, UE ROM, and U E strengthening MEDICAL PLAN: - Diet Type Start Low Sodium - Diet - Liquid Texture Start Thin - Tube Feed Start N/A - Incontinence Bowel Incontinence - DVT Risk due to restricted mobility and obesity - Skin Breakdown Risk due to restricted mobility and age - Aspiration Precaution Seated at 90 degrees while eating and 30 minutes after meals - Cardiac Precaution Monitor blood pressure, heart rate, lower extremity edema, notify MD for shortness of breath or ches t pain Monitor patient for excessive elevation of heart rate and blood pressure during therapy Nursing and Therapy to monitor pt before and after therapy sessions for signs of Chest pain - Fall Precaution Bed alarm TABS alarm Wheel chair alarm - Other See attached MAR (Medication Administration Record) - Diet - Solid Texture Start Regular Start Cut-up - Shower shower DISCHARGE PLAN: - Estimated Length of Stay (days) 13. - Consensus on plan Discharge plan has been discussed with primary caregiver. Patient/Family is in agreement with the brad n. Primary caregiver is in agreement with the plan. - Patient/Family Goals Return home independently. - Potential barriers to discharge Any lines must be removed or patient/caregiver needs to be educated on line care. - Planned Living Setting Upon Discharge Home, to live with Family/Relatives. Transitional Living. SIGNATURE PANEL: (CDT)
--- NOTE | 2022-03-31 18:31 | PAPE ---
POST ADMISSION PHYSICIAN EVALUATION PATIENT: [facility] MR# [id number] REFERRING DOCTOR cass Martinez EVALUATION DATE AND TIME 03/30/2022 19:50 (CDT) NAME GRAZYNA GOMEZ DATE OF 1975 AGE 46 PHONE N# [id number] GENDER female EVALUATING PHYSICIAN Dr. Eulogio Garcia M.D. ADMISSION DIAGNOSIS: J96.01 Chronic Hypoxemic Respiratory Failure ONSET DATE 03/11/2022 SECONDARY/COMORBID DIAGNOSES TIERED: - Tier 3 Morbid (severe) obesity due to excess calories (E66.01) POST-ADMISSION FUNCTIONAL/MEDICAL STATUS: - Bladder Same accident frequency: 7-Ind - No accidents in the past 7 days - Bowel Same accident frequency: 7-Ind - No accidents in the past 7 days - Walking Same score based on distance walked: 0(N/A) - Wheelchair Same score based on distance traveled: 0(N/A) STATUS CHANGE EVALUATION: No change in Functional or Medical Status is identified compared with Pre-Admission screening. PATIENT NEEDS CLOSE MEDICAL SUPERVISION BY A REHABILITATION PHYSICIAN FOR: Coordination of Treatment Team Medical and Co-Morbidity Management Respiratory/Airway Management Bowel and Bladder Management Pain Management Sleep Problems PATIENT REQUIRES 24X7 REHAB NURSING FOR MEDICAL AND FUNCTIONAL MGT. OF THE FOLLOWING DEFICITS: Patient requires 24x7 Rehabilitation Nursing for: Pain Issues, Identifying and preventing risk factor s, Monitoring and reporting current medical conditions, Assisting with ambulation and transfer, Monique ting with all ADL-s, Teaching patients about disease process and medications, Family teaching, Provid ing safe environment, Bowel and Bladder Issues, Skin Integrity, and Medication Management Respiratory/Airway Management Pain Management Disease Management PATIENT REQUIRES INTENSIVE, COORDINATED INTERDISCIPLINARY APPROACH TO REHAB: Patient needs Dietary and Nutrition Services for: Adequate Nutrition, Nutritional Supplements, and Nu tritional Education Patient needs Developer Support Engineer and/or Case Management for: Discharge Planning, Arranging Home Equipmen t or Services, and Family Interventions LIST OF IDENTIFIED AND POTENTIAL PROBLEMS: Alteration in air exchange Alteration in leisure activities Bladder, Incontinence Bowel, Incontinence Falls, Actual or Potential Infection, Actual or Potential Mobility Impaired Pain, Alteration in Comfort Self Care Deficit Skin Integrity, Actual or Potential Urinary Tract Infection (UTI), Actual or Potential RISK FOR COMPLICATIONS - Fluid Overload Administer prescribed diuretics. Monitor pt fluid intake. - Pain Anticipate the need for pain medication for optimal pain managment. Administer prescribed pain medica tion as needed. Education patient on relaxation and deep breathing techniques. - Skin Breakdown Encourage ambulation as tolerated. Repositioning q 2 hours. Use of pillows or foam wedges while in be d. - Respiratory Failure Administer supplemental O2 as needed. Monitor pt O2 sats. - DVT Active and Passive ROM exercises. Elevate BLE. Assist patient with frequent position changes. - Falls Assess for medication side effects. Maintain call light within patient reach for easy access to nursi ng assistance. Provide assistance getting out of bed and with ambulation. Provide assistive devices. - Stroke Monitor and maintain patient pain level. Monitor patient blood pressure. INTERVENTIONS - Afib Administer prescribed anticoagulants and monitor for effectiveness. Vitals will be monitored regularl y. - Obesity hypoventilation synrome Promote healthy diet. Monitor O2 sats regularly ghs. - Acute hypoxemic respiratory failure Reposition pt frequently to maximise lung expansion. Provide emotional support to reduce anxiety. Pro vide supplemental o2 and monitor for effectiveness. Administer medications as indicated. - Biventricular congestive heart failure - Chronic Venous Stasis Administer medications for pain. Provide comfort measures. - Pulmonary Edema Maintain elevated HOB. Monitor pt v/s regularly. Administer supplemental O2. Administer prescribed me dications. Encourage physical activity. - Acute Kidney Injury Monitor pt for s/s of kidney insufficiency. Monitor pt labs. - Hypertension Increase physical activity. Administer medications indicated by physician and monitor for effectivene ss. Monitor patient B/P regularly. - Acute on Chronic Systolic CHF Monitor O2 saturation. Provide supplemental o2 and monitor for effectiveness. Administer medications as indicated by physician. PATIENT COULD BE AT RISK FOR COMPLICATIONS FROM ADVERSE MEDICAL CONDITIONS DUE TO HIS/HER COMORBIDITI ES AND THE RIGORS OF THE INTENSIVE REHABILLITATION PROGRAM. METHODS OR INTERVENTIONS TO AVOID COMPLIC ATIONS INCLUDE: - Infection Clinical staff to assess and manage the signs and symptoms of infection including fever, redness, war mth, etc. - Urinary Tract Infection - Falls Patient will be evaluated for Fall Precautions and will be placed on Fall Precautions as indicated pe r protocol. - Skin Breakdown Nursing will assess skin daily using assessment tool and will place on Skin Breakdown Precautions as indicated per protocol. - Pain Clinical staff may employ non-medication methods such as massage, distraction, decrease stimulus, etc . as needed. Clinical staff will assess patient's pain level every shift per protocol to assess and e nsure pain management effectiveness. Medications will be given and the pain level re-assessed. PRELIMINARY PLAN OF CARE: - Physical Therapy Patient needs Physical Therapy for a daily minimum of 1.5 hours at least 5 out of 7 days, to improve: Mobility, Strengthening, Transfers, Stretching, ROM, Endurance, Ability to manage stairs, Gait, and Balance. - Speech Therapy Patient needs Speech Therapy for a daily minimum of 0.5 hours at least 4 out of 5 days, to improve: S wallowing, Cognition, Language Skills, and Compensatory Strategies. - Rehabilitation Nursing Patient requires 24x7 Rehabilitation Nursing for: Pain Issues, Identifying and preventing risk factor s, Monitoring and reporting current medical conditions, Assisting with ambulation and transfer, Monique ting with all ADL-s, Teaching patients about disease process and medications, Family teaching, Provid ing safe environment, Bowel and Bladder Issues, Skin Integrity, and Medication Management. Patient needs Developer Support Engineer and/or Case Management for: Discharge Planning, Arranging Home Equipmen t or Services, and Family Interventions. - Dietary and Nutrition Services Patient needs Dietary and Nutrition Services for: Adequate Nutrition, Nutritional Supplements, and Nu tritional Education. - Occupational Therapy Patient needs Occupational Therapy for a daily minimum of 1.5 hours at least 5 out of 7 days, to impr ove Activities of Daily Living, including: Eating, Grooming, Bathing, Dressing, Toileting, Toilet Tra nsfers, Community Reintegration, Higher functional activities, Adaptive Equipment, Splinting, Househo ld Tasks, and Other activities as determined. QI SCORES: - Self-Care A. Eating 88-Not attempted due to medical condition or safety concerns B. Oral hygiene 04-Supervision or touching assistance C. Toileting hygiene 88-Not attempted due to medical condition or safety concerns E. Shower/bathe self 88-Not attempted due to medical condition or safety concerns F. Upper body dressing 03-Partial/moderate assistance G. Lower body dressing 02-Substantial/maximal assistance H. Putting on/taking off footwear 02-Substantial/maximal assistance - Mobility A. Roll left and right 02-Substantial/maximal assistance B. Sit to lying 02-Substantial/maximal assistance C. Lying to sitting on side of bed 02-Substantial/maximal assistance D. Sit to stand 02-Substantial/maximal assistance E. Chair/[id number] transfer 02-Substantial/maximal assistance F. Toilet transfer 88-Not attempted due to medical condition or safety concerns G. Car transfer 88-Not attempted due to medical condition or safety concerns I. Walk 10 feet 88-Not attempted due to medical condition or safety concerns J. Walk 50 feet with two turns 88-Not attempted due to medical condition or safety concerns K. Walk 150 feet 88-Not attempted due to medical condition or safety concerns L. Walking 10 feet on uneven surfaces 88-Not attempted due to medical condition or safety concerns M. 1 step (curb) 88-Not attempted due to medical condition or safety concerns N. 4 steps 88-Not attempted due to medical condition or safety concerns O. 12 steps 88-Not attempted due to medical condition or safety concerns P. Picking up object 88-Not attempted due to medical condition or safety concerns R. Wheel 50 feet with two turns 88-Not attempted due to medical condition or safety concerns S. Wheel 150 feet 88-Not attempted due to medical condition or safety concerns - Bladder and Bowel Bladder continence 9-Not applicable Bowel continence 2-Frequently incontinent - Endurance Poor - Balance Poor - Safety Awareness Poor POTENTIAL FUNCTIONAL GOALS FOR PATIENT TO ACHIEVE BY DISCHARGE: - Safety Precaution Patient will remain free from falls or injury at time of discharge. - Bed Mobility Patient will perform bed mobility at 4-Yasmin level of assistance. - Transfers Patient will complete transfers from bed to chair at 4-Yasmin level of assistance. - Mobility Patient will ambulate 150 ft with 4-Yasmin level of assistance with RW. PATIENT REHAB POTENTIAL Francie GOMEZ is able and expected to receive 3 hours of individualized therapy daily on at least 5 of every 7 days Francie GOMEZ's prognosis for significant practical improvement within a reasonable period of time appe ars Good Expected level of measurable improvement will be of a practical value to Francie GOMEZ's functional cap acity or adaptations to impairments Has a viable Discharge Plan Medically appropriate; condition is sufficiently stable to participate in intensive rehab program DISCHARGE PLAN: - Estimated Length of Stay (days) 13. - Consensus on plan Discharge plan has been discussed with primary caregiver. Patient/Family is in agreement with the brad n. Primary caregiver is in agreement with the plan. - Patient/Family Goals Return home independently. - Potential barriers to discharge Any lines must be removed or patient/caregiver needs to be educated on line care. - Planned Living Setting Upon Discharge Home, to live with Family/Relatives. Transitional Living. CONCLUSION ON REHABILITATION NECESSITY: I have evaluated patient's pre-admission functional status and, comparing it to the patient's post-ad mission functional status now, I conclude that the pre-admission assessment was accurate. Patient's c ondition on admission supports the medical necessity of admission to [facility]. It is safe to proceed with patient's therapy program. SIGNATURE PANEL: (CDT)
--- NOTE | 2022-03-31 18:42 | R.PN ---
PROGRESS NOTES ENCOUNTER DATE AND TIME: 03/31/2022 18:29 (CDT) NAME GRAZYNA GOMEZ DATE OF : 1975 DATE OF ADMISSION: 03/29/2022 19:49 (CDT) J96.01 Chronic Hypoxemic Respiratory FailureCHIEF COMPLAINT: Debility secondary to respiratory failure and prolonged hospitaliztion SUBJECTIVE: Pt denied any depression. Pt denied any Shortness of Breath. WBC 6.5, Hgb 10.8, glu 78 to 88, prealbumin 14.3, UA suggests a UTI but no growth on cultures. Stood for 2-3 minutes in rolling walker. Did bed mobility exercises. Chest x-ray 03-29-22, improved aeration of lungs. VITAL SIGNS Temperature: 97.7 F SBP/DBP: 131/80 Pulse: 94 Resp: 16 MEDICATION ALLERGIES: No Known Drug Allergies (NKDA) ENVIRONMENTAL ALLERGIES: - Substance Allergies None Known - Other Allergies Penicillin NURSING: - Shower allowing shower PRECAUTIONS: - Fall Precaution Bed alarm TABS alarm Wheel chair alarm - Incontinence Bowel Incontinence - DVT Risk due to restricted mobility and obesity - Skin Breakdown Risk due to restricted mobility and age - Cardiac Precaution Monitor blood pressure, heart rate, lower extremity edema, notify MD for shortness of breath or chest pain Monitor patient for excessive elevation of heart rate and blood pressure during therapy Nursing and Therapy to monitor pt before and after therapy sessions for signs of Chest pain - Aspiration Precaution Seated at 90 degrees while eating and 30 minutes after meals ACTIVITIES OOB only with supervision THERAPIES: - Dietary and Nutrition Adequate Nutrition. Nutritional Education. Nutritional Supplements. - Occupational Therapy Cognitive Retraining. Patient needs Occupational Therapy for a daily minimum of 1.5 hours at least 5 out of 7 days, to improve Activities of Daily Living, including: Eating, Grooming, Bathing, Dressing, Toileting, Toilet Transfers, Community Reintegration, Higher functional activities, Adaptive Equipme nt, Splinting, Household Tasks, and Other activities as determined. Visual Perceptual Training. Evalu ate and Treat. UE Strengthening. UE ROM. Safety Awareness. Indep. ADL's- Higher Level Functioning. Pa tient/Family Education. - Speech Therapy Cognitive Training. Expressive Language Skills. Memory Strategies. Patient needs Speech Therapy for a daily minimum of 1.5 hours at least 5 out of 7 days, to improve: Swallowing, Cognition, Language Sk ills, and Compensatory Strategies. Receptive Language Skills. Speech Intelligibility Training. - Physical Therapy Patient needs Physical Therapy for a daily minimum of 1.5 hours at least 5 out of 7 days, to improve: Mobility, Strengthening, Transfers, Stretching, ROM, Endurance, Ability to manage stairs, Gait, and Balance. Safety Awareness. Wheelchair Management. Evaluate and Treat. Patient/Family Education. Modal ities Training. - Functional Scores Obtained on 03/26/2022. PHYSICAL EXAM - Gen Alert and awake Lying in bed No apparent distress Oriented to: person, time, and place - Skin No skin breakdown. No abnormalities - Eyes No abnormalities - ENMT No abnormalities - Neck No abnormalities - CVS RRR - Chest Mildly decreased breath sounds bilaterally. - Resp No wheezing - Abd Obese, soft, nontender - GI nondistended Deferred - No abnormalities - Ext Mild bilateral lower extremity edema. - MSK 4+/5 weakness in both lower extremities. - Neuro No focal deficits ASSESSMENT: Pt. is a 46 yo female.On 03/11/2022 she was admitted to [facility] with diagnosis J 96.01 Chronic Hypoxemic Respiratory Failure.Her impairment category is Medically Complex Conditions 1 7 - Respiratory Disorders - Non-ventilator Dependent (17.52).Pre-morbidly, Pt. was independent/mod-I in Locomotion, Self-Care, and Safety Awareness; and she had good Balance, Transfers Control, and End urance.Currently, she has deficits of Locomotion, Safety Awareness, Balance, Self-Care, and Endurance .Pt. is now referred to [facility] for acute in-patient rehabilitation in [facility] to maximize patient's functional independence in activities of daily living, strength, ROM, and mob ility.- Rehab Goal Patient has realistic goal of being discharged at assistance level 7-Ind to reside at Home with Fami ly/Relatives. MDM/PLAN: - Physical Therapy Gait dysfunction - to improve, our physical therapists will perform initial evaluation of pt's statu s upon admission and devise an individualized program for Gait Training, and Wheel Chair mobility Need for home safety evaluation - to improve, our physical therapists will perform initial evaluatio n of pt's status upon admission and devise an individualized program for Home Evaluation Need in caregiver upon discharge - to improve, our physical therapists will perform initial evaluati on of pt's status upon admission and devise an individualized program for Caregiver Training New precaution - to improve, our physical therapists will perform initial evaluation of pt's status upon admission and devise an individualized program for Patient precaution education Edema - to improve, our physical therapists will perform initial evaluation of pt's status upon admis madina and devise an individualized program for Elevation Training, and Lymphedema Therapy Poor balance - to improve, our physical therapists will perform initial evaluation of pt's status up on admission and devise an individualized program for Balance Training Poor endurance - to improve, our physical therapists will perform initial evaluation of pt's status upon admission and devise an individualized program for Endurance Training Weakness - to improve, our physical therapists will perform initial evaluation of pt's status upon a dmission and devise an individualized program for Aquatic Therapy, Neuromuscular Reeducation, and Str engthening Achieving independence - to improve, our physical therapists will perform initial evaluation of pt's status upon admission and devise an individualized program for Community Reintegration Activities - Occupational Therapy ADL deficits - to improve, our occupation therapists will perform initial evaluation of pt's status upon admission and devise an individualized program for Bathing, Bed mobility, Community Reintegratio n, Cooking, Dressing, Eating, Fine Motor Skills, Grooming, Homemaking, Kitchen Mobility, Laundry, Pat ient Education, Safety Awareness, Splinting - Positioning, Transfers(Toilet, Tub, Shower), and Wheel Chair Management Need for dog day care attendant - to improve, our occupation therapists will perform initial evaluation of pt's status upon admission and devise an individualized program for Caregiver Training Weakness - to improve, our occupation therapists will perform initial evaluation of pt's status upon admission and devise an individualized program for Aquatic Therapy, Balance, Endurance, UE ROM, and UE strengthening - Other See attached MAR (Medication Administration Record) - Diet Type Continue Low Sodium - Diet - Liquid Texture Continue Thin - Tube Feed Continue N/A - Incontinence Bowel Incontinence - DVT Risk due to restricted mobility and obesity - Skin Breakdown Risk due to restricted mobility and age - Aspiration Precaution Seated at 90 degrees while eating and 30 minutes after meals - Cardiac Precaution Monitor blood pressure, heart rate, lower extremity edema, notify MD for shortness of breath or chest pain Monitor patient for excessive elevation of heart rate and blood pressure during therapy Nursing and Therapy to monitor pt before and after therapy sessions for signs of Chest pain - Fall Precaution Bed alarm TABS alarm Wheel chair alarm - Diet - Solid Texture Continue Regular Continue Cut-up - Shower allowing shower FUNCTIONAL STATUS: - Self-Care A. Eating Ind B. Grooming modA C. Bathing maxA D. Dressing - Upper modA E. Dressing - Lower maxA F. Toileting maxA - Sphincter Control G. Bladder control Ashok H. Bowel control Ashok - Transfers Control I. Bed/Chair/Wheelchair maxA J. Toilet maxA K. Tub/Shower Dep - Locomotion L. Walk/Wheelchair (B) Dep M. Stairs Dep - Communication N. Comprehension (B) Ashok O. Expression (B) Ashok - Social Cognition P. Social Interaction Ind Q. Problem Solving Ind R. Memory Ind - Endurance Poor - Balance Poor - Safety Awareness Fair QI SCORES: - Self-Care A. Eating 88-Not attempted due to medical condition or safety concerns B. Oral hygiene 04-Supervision or touching assistance C. Toileting hygiene 88-Not attempted due to medical condition or safety concerns E. Shower/bathe self 88-Not attempted due to medical condition or safety concerns F. Upper body dressing 03-Partial/moderate assistance G. Lower body dressing 02-Substantial/maximal assistance H. Putting on/taking off footwear 02-Substantial/maximal assistance - Mobility A. Roll left and right 02-Substantial/maximal assistance B. Sit to lying 02-Substantial/maximal assistance C. Lying to sitting on side of bed 02-Substantial/maximal assistance D. Sit to stand 02-Substantial/maximal assistance E. Chair/erm-wq-[id number] transfer 02-Substantial/maximal assistance F. Toilet transfer 88-Not attempted due to medical condition or safety concerns G. Car transfer 88-Not attempted due to medical condition or safety concerns I. Walk 10 feet 88-Not attempted due to medical condition or safety concerns J. Walk 50 feet with two turns 88-Not attempted due to medical condition or safety concerns K. Walk 150 feet 88-Not attempted due to medical condition or safety concerns L. Walking 10 feet on uneven surfaces 88-Not attempted due to medical condition or safety concerns M. 1 step (curb) 88-Not attempted due to medical condition or safety concerns N. 4 steps 88-Not attempted due to medical condition or safety concerns O. 12 steps 88-Not attempted due to medical condition or safety concerns P. Picking up object 88-Not attempted due to medical condition or safety concerns R. Wheel 50 feet with two turns 88-Not attempted due to medical condition or safety concerns S. Wheel 150 feet 88-Not attempted due to medical condition or safety concerns - Bladder and Bowel Bladder continence 9-Not applicable Bowel continence 2-Frequently incontinent - Endurance Poor - Balance Poor - Safety Awareness Poor CURRENT FUNC. DEFICITS: Mobility, Endurance, Balance, Safety Awareness, and Self-Care SIGNATURE PANEL: (CDT)
[2022-03-31] MEDS: TRAZODONE 50 MG TABLET PO PRN (21:08)
[2022-04-01] MEDS: INSULIN -REGULAR HUMAN 50 UNIT/0.5 ML ML SQ SCH ×4 (07:30→20:35)
[2022-04-01] MEDS: SACUBITRIL/VALSARTAN 24/26 MG TAB PO SCH ×2 (07:52→20:34)
[2022-04-01] MEDS: NYSTATIN PWDR 100000 UNIT/GM TOP SCH ×2 (07:52→20:35)
[2022-04-01] MEDS: BUSPIRONE HCL 15 MG TABLET PO SCH (07:53)
[2022-04-01] MEDS: METOPROLOL XL 25 MG TAB PO SCH (07:53)
[2022-04-01] MEDS: GABAPENTIN 100 MG CAP PO SCH ×2 (07:53→20:34)
[2022-04-01] MEDS: CRANBERRY FRUIT EXTRACT 400 MG CAP PO SCH ×2 (07:53→20:34)
[2022-04-01] MEDS: DOXYCYCLINE 100 MG CAP PO SCH ×2 (07:54→20:34)
[2022-04-01] MEDS: FUROSEMIDE 20 MG TABLET PO SCH (07:54)
[2022-04-01] MEDS: APIXABAN 5 MG TABLET PO SCH ×2 (07:54→20:34)
[2022-04-01] MEDS: AMIODARONE HCL 200 MG TAB PO SCH ×2 (08:11→20:34)
[2022-04-01] MEDS: ACETAMINOPHEN 325 MG TABLET PO PRN (14:16)
--- NOTE | 2022-04-01 17:48 | R.PN ---
PROGRESS NOTES ENCOUNTER DATE AND TIME: 04/01/2022 17:45 (CDT) NAME GRAZYNA GOMEZ DATE OF : 1975 DATE OF ADMISSION: 03/29/2022 19:49 (CDT) J96.01 Chronic Hypoxemic Respiratory FailureCHIEF COMPLAINT: Debility secondary to respiratory failure and prolonged hospitaliztion SUBJECTIVE: Pt denied any depression. Pt denied any Shortness of Breath. WBC 6.5, Hgb 10.8, glu 77 to 81, prealbumin 14.3, UA suggests a UTI but no growth on cultures. Chest x-ray 03-29-22, improved aeration of lungs. Wheelchair mobility 60' with standby assistance VITAL SIGNS Temperature: 97.7 F SBP/DBP: 119/56 Pulse: 77 Resp: 16 MEDICATION ALLERGIES: No Known Drug Allergies (NKDA) ENVIRONMENTAL ALLERGIES: - Substance Allergies None Known - Other Allergies Penicillin NURSING: - Shower allowing shower PRECAUTIONS: - Fall Precaution Bed alarm TABS alarm Wheel chair alarm - Incontinence Bowel Incontinence - DVT Risk due to restricted mobility and obesity - Skin Breakdown Risk due to restricted mobility and age - Cardiac Precaution Monitor blood pressure, heart rate, lower extremity edema, notify MD for shortness of breath or chest pain Monitor patient for excessive elevation of heart rate and blood pressure during therapy Nursing and Therapy to monitor pt before and after therapy sessions for signs of Chest pain - Aspiration Precaution Seated at 90 degrees while eating and 30 minutes after meals ACTIVITIES OOB only with supervision THERAPIES: - Dietary and Nutrition Adequate Nutrition. Nutritional Education. Nutritional Supplements. - Occupational Therapy Cognitive Retraining. Patient needs Occupational Therapy for a daily minimum of 1.5 hours at least 5 out of 7 days, to improve Activities of Daily Living, including: Eating, Grooming, Bathing, Dressing, Toileting, Toilet Transfers, Community Reintegration, Higher functional activities, Adaptive Equipme nt, Splinting, Household Tasks, and Other activities as determined. Visual Perceptual Training. Evalu ate and Treat. UE Strengthening. UE ROM. Safety Awareness. Indep. ADL's- Higher Level Functioning. Pa tient/Family Education. - Speech Therapy Cognitive Training. Expressive Language Skills. Memory Strategies. Patient needs Speech Therapy for a daily minimum of 1.5 hours at least 5 out of 7 days, to improve: Swallowing, Cognition, Language Sk ills, and Compensatory Strategies. Receptive Language Skills. Speech Intelligibility Training. - Physical Therapy Patient needs Physical Therapy for a daily minimum of 1.5 hours at least 5 out of 7 days, to improve: Mobility, Strengthening, Transfers, Stretching, ROM, Endurance, Ability to manage stairs, Gait, and Balance. Safety Awareness. Wheelchair Management. Evaluate and Treat. Patient/Family Education. Modal ities Training. - Functional Scores Obtained on 03/26/2022. PHYSICAL EXAM - Gen Alert and awake Lying in bed No apparent distress Oriented to: person, time, and place - Skin No skin breakdown. No abnormalities - Eyes No abnormalities - ENMT No abnormalities - Neck No abnormalities - CVS RRR - Chest Mildly decreased breath sounds bilaterally. - Resp No wheezing - Abd Obese, soft, nontender - GI nondistended Deferred - No abnormalities - Ext Mild bilateral lower extremity edema. - MSK 4+/5 weakness in both lower extremities. - Neuro No focal deficits ASSESSMENT: Pt. is a 46 yo female.On 03/11/2022 she was admitted to [facility] with diagnosis J 96.01 Chronic Hypoxemic Respiratory Failure.Her impairment category is Medically Complex Conditions 1 7 - Respiratory Disorders - Non-ventilator Dependent (17.52).Pre-morbidly, Pt. was independent/mod-I in Locomotion, Self-Care, and Safety Awareness; and she had good Balance, Transfers Control, and End urance.Currently, she has deficits of Locomotion, Safety Awareness, Balance, Self-Care, and Endurance .Pt. is now referred to [facility] for acute in-patient rehabilitation in [facility] to maximize patient's functional independence in activities of daily living, strength, ROM, and mob ility.- Rehab Goal Patient has realistic goal of being discharged at assistance level 7-Ind to reside at Home with Fami ly/Relatives. MDM/PLAN: - Physical Therapy Gait dysfunction - to improve, our physical therapists will perform initial evaluation of pt's statu s upon admission and devise an individualized program for Gait Training, and Wheel Chair mobility Need for home safety evaluation - to improve, our physical therapists will perform initial evaluatio n of pt's status upon admission and devise an individualized program for Home Evaluation Need in caregiver upon discharge - to improve, our physical therapists will perform initial evaluati on of pt's status upon admission and devise an individualized program for Caregiver Training New precaution - to improve, our physical therapists will perform initial evaluation of pt's status upon admission and devise an individualized program for Patient precaution education Edema - to improve, our physical therapists will perform initial evaluation of pt's status upon admi ssion and devise an individualized program for Elevation Training, and Lymphedema Therapy Poor balance - to improve, our physical therapists will perform initial evaluation of pt's status up on admission and devise an individualized program for Balance Training Poor endurance - to improve, our physical therapists will perform initial evaluation of pt's status upon admission and devise an individualized program for Endurance Training Weakness - to improve, our physical therapists will perform initial evaluation of pt's status upon a dmission and devise an individualized program for Aquatic Therapy, Neuromuscular Reeducation, and Str engthening Achieving independence - to improve, our physical therapists will perform initial evaluation of pt's status upon admission and devise an individualized program for Community Reintegration Activities - Occupational Therapy ADL deficits - to improve, our occupation therapists will perform initial evaluation of pt's status upon admission and devise an individualized program for Bathing, Bed mobility, Community Reintegratio n, Cooking, Dressing, Eating, Fine Motor Skills, Grooming, Homemaking, Kitchen Mobility, Laundry, Pat ient Education, Safety Awareness, Splinting - Positioning, Transfers(Toilet, Tub, Shower), and Wheel Chair Management Need for medicare sales representative - to improve, our occupation therapists will perform initial evaluation of pt's status upon admission and devise an individualized program for Caregiver Training Weakness - to improve, our occupation therapists will perform initial evaluation of pt's status upon admission and devise an individualized program for Aquatic Therapy, Balance, Endurance, UE ROM, and UE strengthening - Other See attached MAR (Medication Administration Record) - Diet Type Continue Low Sodium - Diet - Liquid Texture Continue Thin - Tube Feed Continue N/A - Incontinence Bowel Incontinence - DVT Risk due to restricted mobility and obesity - Skin Breakdown Risk due to restricted mobility and age - Aspiration Precaution Seated at 90 degrees while eating and 30 minutes after meals - Cardiac Precaution Monitor blood pressure, heart rate, lower extremity edema, notify MD for shortness of breath or ches t pain Monitor patient for excessive elevation of heart rate and blood pressure during therapy Nursing and Therapy to monitor pt before and after therapy sessions for signs of Chest pain - Fall Precaution Bed alarm TABS alarm Wheel chair alarm - Diet - Solid Texture Continue Regular Continue Cut-up - Shower allowing shower FUNCTIONAL STATUS: UPDATED AT WEEKLY TEAM CONFERENCE - Bladder Same accident frequency: 7-Ind - No accidents in the past 7 days - Bowel Same accident frequency: 7-Ind - No accidents in the past 7 days - Walking Same score based on distance walked: 0(N/A) - Wheelchair Same score based on distance traveled: 0(N/A) FUNCTIONAL STATUS: - Self-Care A. Eating Ind B. Grooming modA C. Bathing maxA D. Dressing - Upper modA E. Dressing - Lower maxA F. Toileting maxA - Sphincter Control G. Bladder control Ashok H. Bowel control Ashok - Transfers Control I. Bed/Chair/Wheelchair maxA J. Toilet maxA K. Tub/Shower Dep - Locomotion L. Walk/Wheelchair (B) Dep M. Stairs Dep - Communication N. Comprehension (B) Ashok O. Expression (B) Ashok - Social Cognition P. Social Interaction Ind Q. Problem Solving Ind R. Memory Ind - Endurance Poor - Balance Poor - Safety Awareness Fair QI SCORES: - Self-Care A. Eating 88-Not attempted due to medical condition or safety concerns B. Oral hygiene 04-Supervision or touching assistance C. Toileting hygiene 88-Not attempted due to medical condition or safety concerns E. Shower/bathe self 88-Not attempted due to medical condition or safety concerns F. Upper body dressing 03-Partial/moderate assistance G. Lower body dressing 02-Substantial/maximal assistance H. Putting on/taking off footwear 02-Substantial/maximal assistance - Mobility A. Roll left and right 02-Substantial/maximal assistance B. Sit to lying 02-Substantial/maximal assistance C. Lying to sitting on side of bed 02-Substantial/maximal assistance D. Sit to stand 02-Substantial/maximal assistance E. Chair/etx-xg-gnacl transfer 02-Substantial/maximal assistance F. Toilet transfer 88-Not attempted due to medical condition or safety concerns G. Car transfer 88-Not attempted due to medical condition or safety concerns I. Walk 10 feet 88-Not attempted due to medical condition or safety concerns J. Walk 50 feet with two turns 88-Not attempted due to medical condition or safety concerns K. Walk 150 feet 88-Not attempted due to medical condition or safety concerns L. Walking 10 feet on uneven surfaces 88-Not attempted due to medical condition or safety concerns M. 1 step (curb) 88-Not attempted due to medical condition or safety concerns N. 4 steps 88-Not attempted due to medical condition or safety concerns O. 12 steps 88-Not attempted due to medical condition or safety concerns P. Picking up object 88-Not attempted due to medical condition or safety concerns R. Wheel 50 feet with two turns 88-Not attempted due to medical condition or safety concerns S. Wheel 150 feet 88-Not attempted due to medical condition or safety concerns - Bladder and Bowel Bladder continence 9-Not applicable Bowel continence 2-Frequently incontinent - Endurance Poor - Balance Poor - Safety Awareness Poor CURRENT FUNC. DEFICITS: Mobility, Endurance, Balance, Safety Awareness, and Self-Care SIGNATURE PANEL: (CDT)
[2022-04-01] MEDS: TRAZODONE 50 MG TABLET PO PRN (20:34)
[2022-04-01] MEDS: ENSURE ENLIVE 237 ML CAN PO SCH (20:35)
[2022-04-02] MEDS: FUROSEMIDE 20 MG TABLET PO SCH (07:28)
[2022-04-02] MEDS: BUSPIRONE HCL 15 MG TABLET PO SCH (07:28)
[2022-04-02] MEDS: GABAPENTIN 100 MG CAP PO SCH ×2 (07:28→20:08)
[2022-04-02] MEDS: CRANBERRY FRUIT EXTRACT 400 MG CAP PO SCH ×2 (07:29→20:08)
[2022-04-02] MEDS: AMIODARONE HCL 200 MG TAB PO SCH ×2 (07:29→20:08)
[2022-04-02] MEDS: SACUBITRIL/VALSARTAN 24/26 MG TAB PO SCH ×2 (07:30→20:08)
[2022-04-02] MEDS: APIXABAN 5 MG TABLET PO SCH ×2 (07:30→20:08)
[2022-04-02] MEDS: INSULIN -REGULAR HUMAN 50 UNIT/0.5 ML ML SQ SCH ×4 (07:30→20:09)
[2022-04-02] MEDS: METOPROLOL XL 25 MG TAB PO SCH (07:31)
[2022-04-02] MEDS: NYSTATIN PWDR 100000 UNIT/GM TOP SCH ×2 (07:33→20:08)
[2022-04-02] MEDS: ENSURE ENLIVE 237 ML CAN PO SCH ×2 (08:28→20:08)
[2022-04-02] MEDS ORDERED: ONDANSETRON 4 MG (ODT) TAB PO PRN (10:15)
[2022-04-02] MEDS: POTASSIUM CL SA 10 MEQ TAB PO SCH (10:22)
--- NOTE | 2022-04-02 20:40 | R.PN ---
PROGRESS NOTES ENCOUNTER DATE AND TIME: 04/02/2022 20:36 (CDT) NAME GRAZYNA GOMEZ DATE OF : 1975 DATE OF ADMISSION: 03/29/2022 19:49 (CDT) J96.01 Chronic Hypoxemic Respiratory FailureCHIEF COMPLAINT: Debility secondary to respiratory failure and prolonged hospitaliztion SUBJECTIVE: Pt denied any depression. Pt denied any Shortness of Breath. WBC 6.5, Hgb 10.8, glu 75 to 85, prealbumin 14.3, UA suggests a UTI but no growth on cultures. Chest x-ray 03-29-22, improved aeration of lungs. Therapeutic exercises done with min assistance. Bed mobility done with moderate assistance. VITAL SIGNS Temperature: 97.7 F SBP/DBP: 136/77 Pulse: 97 Resp: 16 MEDICATION ALLERGIES: No Known Drug Allergies (NKDA) ENVIRONMENTAL ALLERGIES: - Substance Allergies None Known - Other Allergies Penicillin NURSING: - Shower allowing shower PRECAUTIONS: - Fall Precaution Bed alarm TABS alarm Wheel chair alarm - Incontinence Bowel Incontinence - DVT Risk due to restricted mobility and obesity - Skin Breakdown Risk due to restricted mobility and age - Cardiac Precaution Monitor blood pressure, heart rate, lower extremity edema, notify MD for shortness of breath or chest pain Monitor patient for excessive elevation of heart rate and blood pressure during therapy Nursing and Therapy to monitor pt before and after therapy sessions for signs of Chest pain - Aspiration Precaution Seated at 90 degrees while eating and 30 minutes after meals ACTIVITIES OOB only with supervision THERAPIES: - Dietary and Nutrition Adequate Nutrition. Nutritional Education. Nutritional Supplements. - Occupational Therapy Cognitive Retraining. Patient needs Occupational Therapy for a daily minimum of 1.5 hours at least 5 out of 7 days, to improve Activities of Daily Living, including: Eating, Grooming, Bathing, Dressing, Toileting, Toilet Transfers, Community Reintegration, Higher functional activities, Adaptive Equipme nt, Splinting, Household Tasks, and Other activities as determined. Visual Perceptual Training. Evalu ate and Treat. UE Strengthening. UE ROM. Safety Awareness. Indep. ADL's- Higher Level Functioning. Pa tient/Family Education. - Speech Therapy Cognitive Training. Expressive Language Skills. Memory Strategies. Patient needs Speech Therapy for a daily minimum of 1.5 hours at least 5 out of 7 days, to improve: Swallowing, Cognition, Language Sk ills, and Compensatory Strategies. Receptive Language Skills. Speech Intelligibility Training. - Physical Therapy Patient needs Physical Therapy for a daily minimum of 1.5 hours at least 5 out of 7 days, to improve: Mobility, Strengthening, Transfers, Stretching, ROM, Endurance, Ability to manage stairs, Gait, and Balance. Safety Awareness. Wheelchair Management. Evaluate and Treat. Patient/Family Education. Modal ities Training. - Functional Scores Obtained on 03/26/2022. PHYSICAL EXAM - Gen Alert and awake Lying in bed No apparent distress Oriented to: person, time, and place - Skin No skin breakdown. No abnormalities - Eyes No abnormalities - ENMT No abnormalities - Neck No abnormalities - CVS RRR - Chest Mildly decreased breath sounds bilaterally. - Resp No wheezing - Abd Obese, soft, nontender - GI nondistended Deferred - No abnormalities - Ext Mild bilateral lower extremity edema. - MSK 4+/5 weakness in both lower extremities. - Neuro No focal deficits ASSESSMENT: Pt. is a 46 yo female.On 03/11/2022 she was admitted to [facility] with diagnosis J 96.01 Chronic Hypoxemic Respiratory Failure.Her impairment category is Medically Complex Conditions 1 7 - Respiratory Disorders - Non-ventilator Dependent (17.52).Pre-morbidly, Pt. was independent/mod-I in Locomotion, Self-Care, and Safety Awareness; and she had good Balance, Transfers Control, and End urance.Currently, she has deficits of Locomotion, Safety Awareness, Balance, Self-Care, and Endurance .Pt. is now referred to [facility] for acute in-[facility] [place] [facility] to maximize patient's functional independence in activities of daily living, strength, ROM, and mob ility.- Rehab Goal Patient has realistic goal of being discharged at assistance level 7-Ind to reside at Home with Fami ly/Relatives. MDM/PLAN: - Physical Therapy Gait dysfunction - to improve, our physical therapists will perform initial evaluation of pt's statu s upon admission and devise an individualized program for Gait Training, and Wheel Chair mobility Need for home safety evaluation - to improve, our physical therapists will perform initial evaluatio n of pt's status upon admission and devise an individualized program for Home Evaluation Need in caregiver upon discharge - to improve, our physical therapists will perform initial evaluati on of pt's status upon admission and devise an individualized program for Caregiver Training New precaution - to improve, our physical therapists will perform initial evaluation of pt's status upon admission and devise an individualized program for Patient precaution education Edema - to improve, our physical therapists will perform initial evaluation of pt's status upon admi ssion and devise an individualized program for Elevation Training, and Lymphedema Therapy Poor balance - to improve, our physical therapists will perform initial evaluation of pt's status up on admission and devise an individualized program for Balance Training Poor endurance - to improve, our physical therapists will perform initial evaluation of pt's status upon admission and devise an individualized program for Endurance Training Weakness - to improve, our physical therapists will perform initial evaluation of pt's status upon a dmission and devise an individualized program for Aquatic Therapy, Neuromuscular Reeducation, and Str engthening Achieving independence - to improve, our physical therapists will perform initial evaluation of pt's status upon admission and devise an individualized program for Community Reintegration Activities - Occupational Therapy ADL deficits - to improve, our occupation therapists will perform initial evaluation of pt's status upon admission and devise an individualized program for Bathing, Bed mobility, Community Reintegratio n, Cooking, Dressing, Eating, Fine Motor Skills, Grooming, Homemaking, Kitchen Mobility, Laundry, Pat ient Education, Safety Awareness, Splinting - Positioning, Transfers(Toilet, Tub, Shower), and Wheel Chair Management Need for landcare officer - to improve, our occupation therapists will perform initial evaluation of pt's status upon admission and devise an individualized program for Caregiver Training Weakness - to improve, our occupation therapists will perform initial evaluation of pt's status upon admission and devise an individualized program for Aquatic Therapy, Balance, Endurance, UE ROM, and UE strengthening - Other See attached MAR (Medication Administration Record) - Diet Type Continue Low Sodium - Diet - Liquid Texture Continue Thin - Tube Feed Continue N/A - Incontinence Bowel Incontinence - DVT Risk due to restricted mobility and obesity - Skin Breakdown Risk due to restricted mobility and age - Aspiration Precaution Seated at 90 degrees while eating and 30 minutes after meals - Cardiac Precaution Monitor blood pressure, heart rate, lower extremity edema, notify MD for shortness of breath or ches t pain Monitor patient for excessive elevation of heart rate and blood pressure during therapy Nursing and Therapy to monitor pt before and after therapy sessions for signs of Chest pain - Fall Precaution Bed alarm TABS alarm Wheel chair alarm - Diet - Solid Texture Continue Regular Continue Cut-up - Shower allowing shower FUNCTIONAL STATUS: UPDATED AT WEEKLY TEAM CONFERENCE - Bladder Same accident frequency: 7-Ind - No accidents in the past 7 days - Bowel Same accident frequency: 7-Ind - No accidents in the past 7 days - Walking Same score based on distance walked: 0(N/A) - Wheelchair Same score based on distance traveled: 0(N/A) FUNCTIONAL STATUS: - Self-Care A. Eating Ind B. Grooming modA C. Bathing maxA D. Dressing - Upper modA E. Dressing - Lower maxA F. Toileting maxA - Sphincter Control G. Bladder control Ashok H. Bowel control Ashok - Transfers Control I. Bed/Chair/Wheelchair maxA J. Toilet maxA K. Tub/Shower Dep - Locomotion L. Walk/Wheelchair (B) Dep M. Stairs Dep - Communication N. Comprehension (B) Ashok O. Expression (B) Ashok - Social Cognition P. Social Interaction Ind Q. Problem Solving Ind R. Memory Ind - Endurance Poor - Balance Poor - Safety Awareness Fair QI SCORES: - Self-Care A. Eating 88-Not attempted due to medical condition or safety concerns B. Oral hygiene 04-Supervision or touching assistance C. Toileting hygiene 88-Not attempted due to medical condition or safety concerns E. Shower/bathe self 88-Not attempted due to medical condition or safety concerns F. Upper body dressing 03-Partial/moderate assistance G. Lower body dressing 02-Substantial/maximal assistance H. Putting on/taking off footwear 02-Substantial/maximal assistance - Mobility A. Roll left and right 02-Substantial/maximal assistance B. Sit to lying 02-Substantial/maximal assistance C. Lying to sitting on side of bed 02-Substantial/maximal assistance D. Sit to stand 02-Substantial/maximal assistance E. Chair/[id number] transfer 02-Substantial/maximal assistance F. Toilet transfer 88-Not attempted due to medical condition or safety concerns G. Car transfer 88-Not attempted due to medical condition or safety concerns I. Walk 10 feet 88-Not attempted due to medical condition or safety concerns J. Walk 50 feet with two turns 88-Not attempted due to medical condition or safety concerns K. Walk 150 feet 88-Not attempted due to medical condition or safety concerns L. Walking 10 feet on uneven surfaces 88-Not attempted due to medical condition or safety concerns M. 1 step (curb) 88-Not attempted due to medical condition or safety concerns N. 4 steps 88-Not attempted due to medical condition or safety concerns O. 12 steps 88-Not attempted due to medical condition or safety concerns P. Picking up object 88-Not attempted due to medical condition or safety concerns R. Wheel 50 feet with two turns 88-Not attempted due to medical condition or safety concerns S. Wheel 150 feet 88-Not attempted due to medical condition or safety concerns - Bladder and Bowel Bladder continence 9-Not applicable Bowel continence 2-Frequently incontinent - Endurance Poor - Balance Poor - Safety Awareness Poor CURRENT FUNC. DEFICITS: Mobility, Endurance, Balance, Safety Awareness, and Self-Care SIGNATURE PANEL: (CDT)
[2022-04-03 06:15] LABS: Absolute Lymphocytes (CBC) 1.1 K/uL (0.7-4.9); Hematocrit 33.2 % (36.0-45.0); Lymphocytes % 21.1 % (15.3-44.8); MPV 8.9 fL (7.6-11.3); RBC Red Blood Cell Count 4.31 M/uL (3.86-4.86)
[2022-04-03] MEDS ORDERED: PANTOPRAZOLE 40MG TABLET PO SCH (06:30)
[2022-04-03 06:37] LABS: Albumin 2.6 g/dL (3.4-5.0); Potassium 3.5 mmol/L (3.5-5.1); Prealbumin 13.4 mg/dL (20-40)
[2022-04-03] MEDS: INSULIN -REGULAR HUMAN 50 UNIT/0.5 ML ML SQ SCH ×4 (07:30→19:56)
[2022-04-03] MEDS: APIXABAN 5 MG TABLET PO SCH ×2 (07:48→19:55)
[2022-04-03] MEDS: GABAPENTIN 100 MG CAP PO SCH ×2 (08:18→19:56)
[2022-04-03] MEDS: SACUBITRIL/VALSARTAN 24/26 MG TAB PO SCH ×2 (08:18→19:56)
[2022-04-03] MEDS: CRANBERRY FRUIT EXTRACT 400 MG CAP PO SCH ×2 (08:18→19:55)
[2022-04-03] MEDS: METOPROLOL XL 25 MG TAB PO SCH (08:19)
[2022-04-03] MEDS: PANTOPRAZOLE 40MG TABLET PO SCH (08:19)
[2022-04-03] MEDS: POTASSIUM CL SA 10 MEQ TAB PO SCH (08:21)
[2022-04-03] MEDS: AMIODARONE HCL 200 MG TAB PO SCH ×2 (08:21→19:55)
[2022-04-03] MEDS: FUROSEMIDE 20 MG TABLET PO SCH (08:22)
[2022-04-03 08:24] LABS: White Blood Cell Scan OK (OK)
[2022-04-03 08:25] LABS: Anisocytosis 1+; Blood Morphology Comment NOTED (NOT SEEN); Platelet Estimate ADEQ
[2022-04-03] MEDS: BUSPIRONE HCL 15 MG TABLET PO SCH (08:26)
[2022-04-03] MEDS: ENSURE ENLIVE 237 ML CAN PO SCH ×2 (09:50→19:56)
[2022-04-03] MEDS: NYSTATIN PWDR 100000 UNIT/GM TOP SCH ×2 (09:52→19:55)
--- NOTE | 2022-04-03 10:19 | P.RH.PN ---
Estimated Length of Stay: 16 Expected Discharge Date: 04/15/22 Discharge Disposition Plan: Home Family Support: Yes Assisted Goal: Mobility, Transfers, Self Care Vital Signs: Last Vital Signs Temp 97.4 F 04/03/22 07:18 Pulse 80 04/03/22 08:22 Resp 18 04/03/22 07:18 BP 110/62 04/03/22 08:22 Pulse Ox 97 04/03/22 07:18 Laboratory: Laboratory Last Values WBC 5.1 K/uL (4.3-10.9) D 04/03/22 05:56 RBC 4.31 M/uL (3.86-4.86) 04/03/22 05:56 Hgb 9.9 g/dL (12.0-15.0) L 04/03/22 05:56 Hct 33.2 % (36.0-45.0) L 04/03/22 05:56 MCV 77.0 fL (80-100) L D 04/03/22 05:56 MCH 23.1 pg (27.0-35.0) L 04/03/22 05:56 MCHC 30.0 g/dL (32.0-36.0) L 04/03/22 05:56 RDW 20.6 % (12.1-15.2) H 04/03/22 05:56 Plt Count 258 K/uL (152-406) D 04/03/22 05:56 MPV 8.9 fL (7.6-11.3) 04/03/22 05:56 Neutrophils % 62.3 % (41.7-73.7) 04/03/22 05:56 Lymphocytes % 21.1 % (15.3-44.8) 04/03/22 05:56 Monocytes % 12.8 % (3.3-12.3) H 04/03/22 05:56 Eosinophils % 2.8 % (0-4.4) 04/03/22 05:56 Basophils % 1.0 % (0-1.3) 04/03/22 05:56 Absolute Neutrophils 3.2 K/uL (1.8-8.0) 04/03/22 05:56 Absolute Lymphocytes 1.1 K/uL (0.7-4.9) 04/03/22 05:56 Absolute Monocytes 0.7 K/uL (0.1-1.3) 04/03/22 05:56 Absolute Eosinophils 0.1 K/uL (0-0.5) 04/03/22 05:56 Absolute Basophils 0.1 K/uL (0-0.5) 04/03/22 05:56 Platelet Estimate Adeq 04/03/22 05:56 Anisocytosis 1+ 04/03/22 05:56 Microcytosis 1+ 04/03/22 05:56 Morphology Comment Noted (NOT SEEN) 04/03/22 05:56 Sodium 142 mmol/L (136-145) 04/03/22 05:56 Potassium 3.5 mmol/L (3.5-5.1) 04/03/22 05:56 Chloride 106 mmol/L (98-107) 04/03/22 05:56 Carbon Dioxide 34 mmol/L (21-32) H 04/03/22 05:56 Anion Gap 5.5 mEq/L (5.0-15.0) 04/03/22 05:56 BUN 8 mg/dL (7-18) 04/03/22 05:56 Creatinine 0.49 mg/dL (0.55-1.3) L 04/03/22 05:56 Est GFR (CKD-EPI) 119 ml/min (=/>90) 04/03/22 05:56 Glucose 97 mg/dL (74-106) 04/03/22 05:56 POC Glucose 87 mg/dL (65-120) 04/03/22 06:51 Calcium 8.6 mg/dL (8.5-10.1) 04/03/22 05:56 Magnesium 2.0 mg/dL (1.8-2.4) 04/03/22 05:56 Albumin 2.6 g/dL (3.4-5.0) L 04/03/22 05:56 Prealbumin 13.4 mg/dL (20-40) L 04/03/22 05:56 Urine Color Yellow (Yellow) 03/30/22 05:46 Urine Appearance Clear (Clear) 03/30/22 05:46 Urine pH 6.0 (5.0-7.0) 03/30/22 05:46 Ur Specific [place] 1.025 (1.005-1.030) 03/30/22 05:46 Glucose (UA)(Auto) Negative (Negative) 03/30/22 05:46 Urine Ketones Negative (Negative) 03/30/22 05:46 Urine Blood Trace-intact (Negative) H 03/30/22 05:46 Urine Nitrite Negative (Negative) 03/30/22 05:46 Urine Bilirubin Negative (Negative) 03/30/22 05:46 Urine Urobilinogen 0.2 mg/dL (0.2-1.0) 03/30/22 05:46 Ur Leukocyte Esterase Negative (Negative) 03/30/22 05:46 Urine RBC 5-10 /HPF (NONE SEEN) H 03/30/22 05:46 Urine WBC <5 /HPF (<5) 03/30/22 05:46 Ur Squamous Epith Cells <5 /HPF (NONE SEEN) 03/30/22 05:46 Ur Urothelial Cells Cancelled 03/30/22 04:20 Calcium Oxalate Crystal Cancelled 03/30/22 04:20 Uric Acid Crystals Cancelled 03/30/22 04:20 Triple Phos Crystals Cancelled 03/30/22 04:20 Other Crystals Cancelled 03/30/22 04:20 Amorphous Sediment Cancelled 03/30/22 04:20 Glitter Cells Cancelled 03/30/22 04:20 Urine Bacteria 20-50 /HPF (<20) H 03/30/22 05:46 Hyaline Casts Cancelled 03/30/22 04:20 Fine Granular Casts Cancelled 03/30/22 04:20 Coarse Granular Casts Cancelled 03/30/22 04:20 Waxy Casts Cancelled 03/30/22 04:20 RBC Casts Cancelled 03/30/22 04:20 WBC Casts Cancelled 03/30/22 04:20 Urine Mucus 2+ /HPF (NONE SEEN) 03/30/22 05:46 Urine Other Cancelled 03/30/22 04:20 Urine Trichomonas Cancelled 03/30/22 04:20 Urine Yeast Cancelled 03/30/22 04:20 Ur Yeast w Hyphae Cancelled 03/30/22 04:20 Urine Yeast (Budding) Cancelled 03/30/22 04:20 Urine Sperm Cancelled 03/30/22 04:20 Urine Culture Reflexed Not needed 03/30/22 05:46 Urine Total Volume Cancelled 03/30/22 04:20 Urine Total Protein Trace (Negative) H 03/30/22 05:46 SARS-CoV-2 Rap RNA(RT-PCR) Cancelled 04/02/22 12:50 Smear Scan Ok (OK) 04/03/22 05:56 Weight: 441 lb Wound Present: No Closed Surgical Incision Present: No Negative Pressure Wound Therapy Present: No Physician Update: Bed mobility SBA, CGA with transfers, CGA with sit to stands. Wheelchair 30' with SBA. She had BM once yesterday. Shower done with max assistance. Max assistance with lower body dressing. Mod assistance with upper body dressing. Summary: Patient's care plan and correction goals have been reviewed and revised as necessary. Please see the Rehabilitation Signature page for all necessary signatures.
--- NOTE | 2022-04-03 16:00 | RAD REPORT ---
EXAM DESCRIPTION: RAD - Ankle Left 2 View - 04/03/2022 3:33 pm CLINICAL HISTORY: Left ankle pain after WC mobility, R/O fracture COMPARISON: No comparisons FINDINGS: Soft tissue swelling is seen about the ankle. Large posterior and plantar calcaneal spurs.
[2022-04-04] MEDS: INSULIN -REGULAR HUMAN 50 UNIT/0.5 ML ML SQ SCH ×4 (07:02→20:16)
[2022-04-04] MEDS: PANTOPRAZOLE 40MG TABLET PO SCH (07:02)
[2022-04-04] MEDS: SACUBITRIL/VALSARTAN 24/26 MG TAB PO SCH ×2 (07:34→20:16)
[2022-04-04] MEDS: GABAPENTIN 100 MG CAP PO SCH ×2 (07:35→20:16)
[2022-04-04] MEDS: CRANBERRY FRUIT EXTRACT 400 MG CAP PO SCH ×2 (07:35→20:15)
[2022-04-04] MEDS: BUSPIRONE HCL 15 MG TABLET PO SCH (07:35)
[2022-04-04] MEDS: APIXABAN 5 MG TABLET PO SCH ×2 (07:36→20:15)
[2022-04-04] MEDS: FUROSEMIDE 20 MG TABLET PO SCH (07:36)
[2022-04-04] MEDS: METOPROLOL XL 25 MG TAB PO SCH (07:36)
[2022-04-04] MEDS: AMIODARONE HCL 200 MG TAB PO SCH ×2 (07:37→20:15)
[2022-04-04] MEDS: POTASSIUM CL SA 10 MEQ TAB PO SCH (07:37)
[2022-04-04] MEDS: ENSURE ENLIVE 237 ML CAN PO SCH ×2 (07:38→20:16)
[2022-04-04] MEDS: NYSTATIN PWDR 100000 UNIT/GM TOP SCH ×2 (07:39→20:16)
--- NOTE | 2022-04-04 16:10 | R.PN ---
PROGRESS NOTES ENCOUNTER DATE AND TIME: 04/04/2022 16:01 (CDT) NAME GRAZYNA GOMEZ DATE OF : 1975 DATE OF ADMISSION: 03/29/2022 19:49 (T) J96.01 Chronic Hypoxemic Respiratory FailureCHIEF COMPLAINT: Debility secondary to respiratory failure and prolonged hospitaliztion SUBJECTIVE: Pt denied any depression. Pt denied any Shortness of Breath. WBC 5.1, Hgb 9.9, glu 80 to 92, prealbumin 14.3, UA suggests a UTI but no growth on cultures. Chest x-ray 03-29-22, improved aeration of lungs. Ambulated 51' with a rolling walker contact guard assistance. VITAL SIGNS Temperature: 97.6 F SBP/DBP: 126/66 Pulse: 88 Resp: 16 MEDICATION ALLERGIES: No Known Drug Allergies (NKDA) ENVIRONMENTAL ALLERGIES: - Substance Allergies None Known - Other Allergies Penicillin NURSING: - Shower allowing shower PRECAUTIONS: - Fall Precaution Bed alarm TABS alarm Wheel chair alarm - Incontinence Bowel Incontinence - DVT Risk due to restricted mobility and obesity - Skin Breakdown Risk due to restricted mobility and age - Cardiac Precaution Monitor blood pressure, heart rate, lower extremity edema, notify MD for shortness of breath or chest pain Monitor patient for excessive elevation of heart rate and blood pressure during therapy Nursing and Therapy to monitor pt before and after therapy sessions for signs of Chest pain - Aspiration Precaution Seated at 90 degrees while eating and 30 minutes after meals ACTIVITIES OOB only with supervision THERAPIES: - Dietary and Nutrition Adequate Nutrition. Nutritional Education. Nutritional Supplements. - Occupational Therapy Cognitive Retraining. Patient needs Occupational Therapy for a daily minimum of 1.5 hours at least 5 out of 7 days, to improve Activities of Daily Living, including: Eating, Grooming, Bathing, Dressing, Toileting, Toilet Transfers, Community Reintegration, Higher functional activities, Adaptive Equipme nt, Splinting, Household Tasks, and Other activities as determined. Visual Perceptual Training. Evalu ate and Treat. UE Strengthening. UE ROM. Safety Awareness. Indep. ADL's- Higher Level Functioning. Pa tient/Family Education. - Speech Therapy Cognitive Training. Expressive Language Skills. Memory Strategies. Patient needs Speech Therapy for a daily minimum of 1.5 hours at least 5 out of 7 days, to improve: Swallowing, Cognition, Language Sk ills, and Compensatory Strategies. Receptive Language Skills. Speech Intelligibility Training. - Physical Therapy Patient needs Physical Therapy for a daily minimum of 1.5 hours at least 5 out of 7 days, to improve: Mobility, Strengthening, Transfers, Stretching, ROM, Endurance, Ability to manage stairs, Gait, and Balance. Safety Awareness. Wheelchair Management. Evaluate and Treat. Patient/Family Education. Modal ities Training. - Functional Scores Obtained on 03/26/2022. PHYSICAL EXAM - Gen Alert and awake Lying in bed No apparent distress Oriented to: person, time, and place - Skin No skin breakdown. No abnormalities - Eyes No abnormalities - ENMT No abnormalities - Neck No abnormalities - CVS RRR - Chest Mildly decreased breath sounds bilaterally. - Resp No wheezing - Abd Obese, soft, nontender - GI nondistended Deferred - No abnormalities - Ext Mild bilateral lower extremity edema. - MSK 4+/5 weakness in both lower extremities. - Neuro No focal deficits ASSESSMENT: Pt. is a 46 yo female.On 03/11/2022 she was admitted to [facility] with diagnosis J 96.01 Chronic Hypoxemic Respiratory Failure.Her impairment category is Medically Complex Conditions 1 7 - Respiratory Disorders - Non-ventilator Dependent (17.52).Pre-morbidly, Pt. was independent/mod-I in Locomotion, Self-Care, and Safety Awareness; and she had good Balance, Transfers Control, and End urance.Currently, she has deficits of Locomotion, Safety Awareness, Balance, Self-Care, and Endurance .Pt. is now referred to [facility] for acute in-patient rehabilitation in [facility] to maximize patient's functional independence in activities of daily living, strength, ROM, and mob ility.- Rehab Goal Patient has realistic goal of being discharged at assistance level 7-Ind to reside at Home with Fami ly/Relatives. MDM/PLAN: - Physical Therapy Gait dysfunction - to improve, our physical therapists will perform initial evaluation of pt's statu s upon admission and devise an individualized program for Gait Training, and Wheel Chair mobility Need for home safety evaluation - to improve, our physical therapists will perform initial evaluatio n of pt's status upon admission and devise an individualized program for Home Evaluation Need in caregiver upon discharge - to improve, our physical therapists will perform initial evaluati on of pt's status upon admission and devise an individualized program for Caregiver Training New precaution - to improve, our physical therapists will perform initial evaluation of pt's status upon admission and devise an individualized program for Patient precaution education Edema - to improve, our physical therapists will perform initial evaluation of pt's status upon admi ssion and devise an individualized program for Elevation Training, and Lymphedema Therapy Poor balance - to improve, our physical therapists will perform initial evaluation of pt's status up on admission and devise an individualized program for Balance Training Poor endurance - to improve, our physical therapists will perform initial evaluation of pt's status upon admission and devise an individualized program for Endurance Training Weakness - to improve, our physical therapists will perform initial evaluation of pt's status upon a dmission and devise an individualized program for Aquatic Therapy, Neuromuscular Reeducation, and Str engthening Achieving independence - to improve, our physical therapists will perform initial evaluation of pt's status upon admission and devise an individualized program for Community Reintegration Activities - Occupational Therapy ADL deficits - to improve, our occupation therapists will perform initial evaluation of pt's status upon admission and devise an individualized program for Bathing, Bed mobility, Community Reintegratio n, Cooking, Dressing, Eating, Fine Motor Skills, Grooming, Homemaking, Kitchen Mobility, Laundry, Pat ient Education, Safety Awareness, Splinting - Positioning, Transfers(Toilet, Tub, Shower), and Wheel Chair Management Need for wound care physician - to improve, our occupation therapists will perform initial evaluation of pt's status upon admission and devise an individualized program for Caregiver Training Weakness - to improve, our occupation therapists will perform initial evaluation of pt's status upon admission and devise an individualized program for Aquatic Therapy, Balance, Endurance, UE ROM, and UE strengthening - Other See attached MAR (Medication Administration Record) - Diet Type Continue Low Sodium - Diet - Liquid Texture Continue Thin - Tube Feed Continue N/A - Incontinence Bowel Incontinence - DVT Risk due to restricted mobility and obesity - Skin Breakdown Risk due to restricted mobility and age - Aspiration Precaution Seated at 90 degrees while eating and 30 minutes after meals - Cardiac Precaution Monitor blood pressure, heart rate, lower extremity edema, notify MD for shortness of breath or ches t pain Monitor patient for excessive elevation of heart rate and blood pressure during therapy Nursing and Therapy to monitor pt before and after therapy sessions for signs of Chest pain - Fall Precaution Bed alarm TABS alarm Wheel chair alarm - Diet - Solid Texture Continue Regular Continue Cut-up - Shower allowing shower FUNCTIONAL STATUS: UPDATED AT WEEKLY TEAM CONFERENCE - Bladder Same accident frequency: 7-Ind - No accidents in the past 7 days - Bowel Same accident frequency: 7-Ind - No accidents in the past 7 days - Walking Same score based on distance walked: 0(N/A) - Wheelchair Same score based on distance traveled: 0(N/A) FUNCTIONAL STATUS: - Self-Care A. Eating Ind B. Grooming modA C. Bathing maxA D. Dressing - Upper modA E. Dressing - Lower maxA F. Toileting maxA - Sphincter Control G. Bladder control Ashok H. Bowel control Ashok - Transfers Control I. Bed/Chair/Wheelchair maxA J. Toilet maxA K. Tub/Shower Dep - Locomotion L. Walk/Wheelchair (B) Dep M. Stairs Dep - Communication N. Comprehension (B) Ashok O. Expression (B) Ashok - Social Cognition P. Social Interaction Ind Q. Problem Solving Ind R. Memory Ind - Endurance Poor - Balance Poor - Safety Awareness Fair QI SCORES: - Self-Care A. Eating 88-Not attempted due to medical condition or safety concerns B. Oral hygiene 04-Supervision or touching assistance C. Toileting hygiene 88-Not attempted due to medical condition or safety concerns E. Shower/bathe self 88-Not attempted due to medical condition or safety concerns F. Upper body dressing 03-Partial/moderate assistance G. Lower body dressing 02-Substantial/maximal assistance H. Putting on/taking off footwear 02-Substantial/maximal assistance - Mobility A. Roll left and right 02-Substantial/maximal assistance B. Sit to lying 02-Substantial/maximal assistance C. Lying to sitting on side of bed 02-Substantial/maximal assistance D. Sit to stand 02-Substantial/maximal assistance E. Chair/[id number] transfer 02-Substantial/maximal assistance F. Toilet transfer 88-Not attempted due to medical condition or safety concerns G. Car transfer 88-Not attempted due to medical condition or safety concerns I. Walk 10 feet 88-Not attempted due to medical condition or safety concerns J. Walk 50 feet with two turns 88-Not attempted due to medical condition or safety concerns K. Walk 150 feet 88-Not attempted due to medical condition or safety concerns L. Walking 10 feet on uneven surfaces 88-Not attempted due to medical condition or safety concerns M. 1 step (curb) 88-Not attempted due to medical condition or safety concerns N. 4 steps 88-Not attempted due to medical condition or safety concerns O. 12 steps 88-Not attempted due to medical condition or safety concerns P. Picking up object 88-Not attempted due to medical condition or safety concerns R. Wheel 50 feet with two turns 88-Not attempted due to medical condition or safety concerns S. Wheel 150 feet 88-Not attempted due to medical condition or safety concerns - Bladder and Bowel Bladder continence 9-Not applicable Bowel continence 2-Frequently incontinent - Endurance Poor - Balance Poor - Safety Awareness Poor CURRENT FUNC. DEFICITS: Mobility, Endurance, Balance, Safety Awareness, and Self-Care SIGNATURE PANEL: (CDT)
[2022-04-04] MEDS: TRAZODONE 50 MG TABLET PO PRN (21:16)
[2022-04-04] MEDS ORDERED: clonazePAM 0.5 MG TAB PO ONE (22:27)
[2022-04-05] MEDS: INSULIN -REGULAR HUMAN 50 UNIT/0.5 ML ML SQ SCH (07:02)
[2022-04-05] MEDS: APIXABAN 5 MG TABLET PO SCH ×2 (07:12→20:13)
[2022-04-05] MEDS: SACUBITRIL/VALSARTAN 24/26 MG TAB PO SCH ×2 (07:43→20:12)
[2022-04-05] MEDS: GABAPENTIN 100 MG CAP PO SCH ×2 (07:43→20:12)
[2022-04-05] MEDS: AMIODARONE HCL 200 MG TAB PO SCH ×2 (07:44→20:13)
[2022-04-05] MEDS: POTASSIUM CL SA 10 MEQ TAB PO SCH (07:44)
[2022-04-05] MEDS: CRANBERRY FRUIT EXTRACT 400 MG CAP PO SCH ×2 (07:44→20:13)
[2022-04-05] MEDS: PANTOPRAZOLE 40MG TABLET PO SCH (07:44)
[2022-04-05] MEDS: BUSPIRONE HCL 15 MG TABLET PO SCH (07:45)
[2022-04-05] MEDS: METOPROLOL XL 25 MG TAB PO SCH (07:45)
[2022-04-05] MEDS: FUROSEMIDE 20 MG TABLET PO SCH (07:45)
[2022-04-05] MEDS: NYSTATIN PWDR 100000 UNIT/GM TOP SCH ×2 (08:00→20:13)
[2022-04-05] MEDS: ENSURE ENLIVE 237 ML CAN PO SCH ×2 (10:13→20:13)
[2022-04-06] MEDS: PANTOPRAZOLE 40MG TABLET PO SCH (07:05)
[2022-04-06] MEDS: APIXABAN 5 MG TABLET PO SCH ×2 (08:22→20:28)
[2022-04-06] MEDS: CRANBERRY FRUIT EXTRACT 400 MG CAP PO SCH ×2 (08:23→20:28)
[2022-04-06] MEDS: POTASSIUM CL SA 10 MEQ TAB PO SCH (08:23)
[2022-04-06] MEDS: BUSPIRONE HCL 15 MG TABLET PO SCH (08:23)
[2022-04-06] MEDS: GABAPENTIN 100 MG CAP PO SCH ×2 (08:23→20:27)
[2022-04-06] MEDS: FUROSEMIDE 20 MG TABLET PO SCH (08:23)
[2022-04-06] MEDS: METOPROLOL XL 25 MG TAB PO SCH (08:24)
[2022-04-06] MEDS: AMIODARONE HCL 200 MG TAB PO SCH ×2 (08:24→20:27)
[2022-04-06] MEDS: SACUBITRIL/VALSARTAN 24/26 MG TAB PO SCH ×2 (08:24→20:27)
[2022-04-06] MEDS: ENSURE ENLIVE 237 ML CAN PO SCH ×2 (08:25→20:28)
[2022-04-06] MEDS: NYSTATIN PWDR 100000 UNIT/GM TOP SCH ×2 (09:07→20:28)
[2022-04-07] MEDS: PANTOPRAZOLE 40MG TABLET PO SCH (08:01)
[2022-04-07] MEDS: AMIODARONE HCL 200 MG TAB PO SCH ×2 (08:02→19:36)
[2022-04-07] MEDS: APIXABAN 5 MG TABLET PO SCH ×2 (08:02→19:36)
[2022-04-07] MEDS: SACUBITRIL/VALSARTAN 24/26 MG TAB PO SCH ×2 (08:02→19:36)
[2022-04-07] MEDS: FUROSEMIDE 20 MG TABLET PO SCH (08:02)
[2022-04-07] MEDS: METOPROLOL XL 25 MG TAB PO SCH (08:03)
[2022-04-07] MEDS: BUSPIRONE HCL 15 MG TABLET PO SCH (08:03)
[2022-04-07] MEDS: NYSTATIN PWDR 100000 UNIT/GM TOP SCH ×2 (08:04→19:36)
[2022-04-07] MEDS: CRANBERRY FRUIT EXTRACT 400 MG CAP PO SCH ×2 (08:04→19:36)
[2022-04-07] MEDS: POTASSIUM CL SA 10 MEQ TAB PO SCH (08:04)
[2022-04-07] MEDS: GABAPENTIN 100 MG CAP PO SCH ×2 (08:04→19:36)
[2022-04-07] MEDS: ENSURE ENLIVE 237 ML CAN PO SCH ×2 (08:05→19:37)
--- NOTE | 2022-04-07 17:44 | R.PN ---
PROGRESS NOTES ENCOUNTER DATE AND TIME: 04/07/2022 17:40 (CDT) NAME GRAZYNA GOMEZ DATE OF : 1975 DATE OF ADMISSION: 03/29/2022 19:49 (CDT) J96.01 Chronic Hypoxemic Respiratory FailureCHIEF COMPLAINT: Debility secondary to respiratory failure and prolonged hospitaliztion SUBJECTIVE: Pt denied any depression. Pt denied any Shortness of Breath. WBC 5.1, Hgb 9.9, glu 80 to 86, prealbumin 14.3, UA suggests a UTI but no growth on cultures. Chest x-ray 03-29-22, improved aeration of lungs. Ambulated 87' with a rolling walker and standby assistance. VITAL SIGNS Temperature: 97.8 F SBP/DBP: 136/72 Pulse: 82 Resp: 15 MEDICATION ALLERGIES: No Known Drug Allergies (NKDA) ENVIRONMENTAL ALLERGIES: - Substance Allergies None Known - Other Allergies Penicillin NURSING: - Shower allowing shower PRECAUTIONS: - Fall Precaution Bed alarm TABS alarm Wheel chair alarm - Incontinence Bowel Incontinence - DVT Risk due to restricted mobility and obesity - Skin Breakdown Risk due to restricted mobility and age - Cardiac Precaution Monitor blood pressure, heart rate, lower extremity edema, notify MD for shortness of breath or chest pain Monitor patient for excessive elevation of heart rate and blood pressure during therapy Nursing and Therapy to monitor pt before and after therapy sessions for signs of Chest pain - Aspiration Precaution Seated at 90 degrees while eating and 30 minutes after meals ACTIVITIES OOB only with supervision THERAPIES: - Dietary and Nutrition Adequate Nutrition. Nutritional Education. Nutritional Supplements. - Occupational Therapy Cognitive Retraining. Patient needs Occupational Therapy for a daily minimum of 1.5 hours at least 5 out of 7 days, to improve Activities of Daily Living, including: Eating, Grooming, Bathing, Dressing, Toileting, Toilet Transfers, Community Reintegration, Higher functional activities, Adaptive Equipme nt, Splinting, Household Tasks, and Other activities as determined. Visual Perceptual Training. Evalu ate and Treat. UE Strengthening. UE ROM. Safety Awareness. Indep. ADL's- Higher Level Functioning. Pa tient/Family Education. - Speech Therapy Cognitive Training. Expressive Language Skills. Memory Strategies. Patient needs Speech Therapy for a daily minimum of 1.5 hours at least 5 out of 7 days, to improve: Swallowing, Cognition, Language Sk ills, and Compensatory Strategies. Receptive Language Skills. Speech Intelligibility Training. - Physical Therapy Patient needs Physical Therapy for a daily minimum of 1.5 hours at least 5 out of 7 days, to improve: Mobility, Strengthening, Transfers, Stretching, ROM, Endurance, Ability to manage stairs, Gait, and Balance. Safety Awareness. Wheelchair Management. Evaluate and Treat. Patient/Family Education. Modal ities Training. - Functional Scores Obtained on 03/26/2022. PHYSICAL EXAM - Gen Alert and awake Lying in bed No apparent distress Oriented to: person, time, and place - Skin No skin breakdown. No abnormalities - Eyes No abnormalities - ENMT No abnormalities - Neck No abnormalities - CVS RRR - Chest Mildly decreased breath sounds bilaterally. - Resp No wheezing - Abd Obese, soft, nontender - GI nondistended Deferred - No abnormalities - Ext Mild bilateral lower extremity edema. - MSK 4+/5 weakness in both lower extremities. - Neuro No focal deficits ASSESSMENT: Pt. is a 46 yo female.On 03/11/[address] [facility] with diagnosis J 96.01 Chronic Hypoxemic Respiratory Failure.Her impairment category is Medically Complex Conditions 1 7 - Respiratory Disorders - Non-ventilator Dependent (17.52).Pre-morbidly, Pt. was independent/mod-I in Locomotion, Self-Care, and Safety Awareness; and she had good Balance, Transfers Control, and End urance.Currently, she has deficits of Locomotion, Safety Awareness, Balance, Self-Care, and Endurance .Pt. is now referred to [facility] for acute in-patient rehabilitation [place] [facility] [place] to maximize patient's functional independence in activities of daily living, strength, ROM, and mob ility.- Rehab Goal Patient has realistic goal of being discharged at assistance level 7-Ind to reside at Home with Fami ly/Relatives. MDM/PLAN: - Physical Therapy Gait dysfunction - to improve, our physical therapists will perform initial evaluation of pt's statu s upon admission and devise an individualized program for Gait Training, and Wheel Chair mobility Need for home safety evaluation - to improve, our physical therapists will perform initial evaluatio n of pt's status upon admission and devise an individualized program for Home Evaluation Need in caregiver upon discharge - to improve, our physical therapists will perform initial evaluati on of pt's status upon admission and devise an individualized program for Caregiver Training New precaution - to improve, our physical therapists will perform initial evaluation of pt's status upon admission and devise an individualized program for Patient precaution education Edema - to improve, our physical therapists will perform initial evaluation of pt's status upon admi ssion and devise an individualized program for Elevation Training, and Lymphedema Therapy Poor balance - to improve, our physical therapists will perform initial evaluation of pt's status up on admission and devise an individualized program for Balance Training Poor endurance - to improve, our physical therapists will perform initial evaluation of pt's status upon admission and devise an individualized program for Endurance Training Weakness - to improve, our physical therapists will perform initial evaluation of pt's status upon a dmission and devise an individualized program for Aquatic Therapy, Neuromuscular Reeducation, and Str engthening Achieving independence - to improve, our physical therapists will perform initial evaluation of pt's status upon admission and devise an individualized program for Community Reintegration Activities - Occupational Therapy ADL deficits - to improve, our occupation therapists will perform initial evaluation of pt's status upon admission and devise an individualized program for Bathing, Bed mobility, Community Reintegratio n, Cooking, Dressing, Eating, Fine Motor Skills, Grooming, Homemaking, Kitchen Mobility, Laundry, Pat ient Education, Safety Awareness, Splinting - Positioning, Transfers(Toilet, Tub, Shower), and Wheel Chair Management Need for palliative care physician - to improve, our occupation therapists will perform initial evaluation of pt's status upon admission and devise an individualized program for Caregiver Training Weakness - to improve, our occupation therapists will perform initial evaluation of pt's status upon admission and devise an individualized program for Aquatic Therapy, Balance, Endurance, UE ROM, and UE strengthening - Other See attached MAR (Medication Administration Record) - Diet Type Continue Low Sodium - Diet - Liquid Texture Continue Thin - Tube Feed Continue N/A - Incontinence Bowel Incontinence - DVT Risk due to restricted mobility and obesity - Skin Breakdown Risk due to restricted mobility and age - Aspiration Precaution Seated at 90 degrees while eating and 30 minutes after meals - Cardiac Precaution Monitor blood pressure, heart rate, lower extremity edema, notify MD for shortness of breath or ches t pain Monitor patient for excessive elevation of heart rate and blood pressure during therapy Nursing and Therapy to monitor pt before and after therapy sessions for signs of Chest pain - Fall Precaution Bed alarm TABS alarm Wheel chair alarm - Diet - Solid Texture Continue Regular Continue Cut-up - Shower allowing shower FUNCTIONAL STATUS: UPDATED AT WEEKLY TEAM CONFERENCE - Bladder Same accident frequency: 7-Ind - No accidents in the past 7 days - Bowel Same accident frequency: 7-Ind - No accidents in the past 7 days - Walking Same score based on distance walked: 0(N/A) - Wheelchair Same score based on distance traveled: 0(N/A) FUNCTIONAL STATUS: - Self-Care A. Eating Ind B. Grooming modA C. Bathing maxA D. Dressing - Upper modA E. Dressing - Lower maxA F. Toileting maxA - Sphincter Control G. Bladder control Ashok H. Bowel control Ashok - Transfers Control I. Bed/Chair/Wheelchair maxA J. Toilet maxA K. Tub/Shower Dep - Locomotion L. Walk/Wheelchair (B) Dep M. Stairs Dep - Communication N. Comprehension (B) Ashok O. Expression (B) Ashok - Social Cognition P. Social Interaction Ind Q. Problem Solving Ind R. Memory Ind - Endurance Poor - Balance Poor - Safety Awareness Fair QI SCORES: - Self-Care A. Eating 88-Not attempted due to medical condition or safety concerns B. Oral hygiene 04-Supervision or touching assistance C. Toileting hygiene 88-Not attempted due to medical condition or safety concerns E. Shower/bathe self 88-Not attempted due to medical condition or safety concerns F. Upper body dressing 03-Partial/moderate assistance G. Lower body dressing 02-Substantial/maximal assistance H. Putting on/taking off footwear 02-Substantial/maximal assistance - Mobility A. Roll left and right 02-Substantial/maximal assistance B. Sit to lying 02-Substantial/maximal assistance C. Lying to sitting on side of bed 02-Substantial/maximal assistance D. Sit to stand 02-Substantial/maximal assistance E. Chair/[id number] transfer 02-Substantial/maximal assistance F. Toilet transfer 88-Not attempted due to medical condition or safety concerns G. Car transfer 88-Not attempted due to medical condition or safety concerns I. Walk 10 feet 88-Not attempted due to medical condition or safety concerns J. Walk 50 feet with two turns 88-Not attempted due to medical condition or safety concerns K. Walk 150 feet 88-Not attempted due to medical condition or safety concerns L. Walking 10 feet on uneven surfaces 88-Not attempted due to medical condition or safety concerns M. 1 step (curb) 88-Not attempted due to medical condition or safety concerns N. 4 steps 88-Not attempted due to medical condition or safety concerns O. 12 steps 88-Not attempted due to medical condition or safety concerns P. Picking up object 88-Not attempted due to medical condition or safety concerns R. Wheel 50 feet with two turns 88-Not attempted due to medical condition or safety concerns S. Wheel 150 feet 88-Not attempted due to medical condition or safety concerns - Bladder and Bowel Bladder continence 9-Not applicable Bowel continence 2-Frequently incontinent - Endurance Poor - Balance Poor - Safety Awareness Poor CURRENT FUNC. DEFICITS: Mobility, Endurance, Balance, Safety Awareness, and Self-Care SIGNATURE PANEL: (CDT)
[2022-04-08] MEDS: AMIODARONE HCL 200 MG TAB PO SCH ×2 (07:29→19:14)
[2022-04-08] MEDS: METOPROLOL XL 25 MG TAB PO SCH (07:29)
[2022-04-08] MEDS: PANTOPRAZOLE 40MG TABLET PO SCH (07:29)
[2022-04-08] MEDS: BUSPIRONE HCL 15 MG TABLET PO SCH (07:30)
[2022-04-08] MEDS: SACUBITRIL/VALSARTAN 24/26 MG TAB PO SCH ×2 (07:30→19:14)
[2022-04-08] MEDS: FUROSEMIDE 20 MG TABLET PO SCH (07:31)
[2022-04-08] MEDS: NYSTATIN PWDR 100000 UNIT/GM TOP SCH ×2 (07:31→19:14)
[2022-04-08] MEDS: POTASSIUM CL SA 10 MEQ TAB PO SCH (07:31)
[2022-04-08] MEDS: CRANBERRY FRUIT EXTRACT 400 MG CAP PO SCH ×2 (07:31→19:14)
[2022-04-08] MEDS: APIXABAN 5 MG TABLET PO SCH ×2 (07:31→19:14)
[2022-04-08] MEDS: GABAPENTIN 100 MG CAP PO SCH ×2 (07:32→19:14)
[2022-04-08] MEDS: ENSURE ENLIVE 237 ML CAN PO SCH ×2 (07:32→19:14)
--- NOTE | 2022-04-08 17:42 | R.PN ---
PROGRESS NOTES ENCOUNTER DATE AND TIME: 04/08/2022 17:39 (CDT) NAME GRAZYNA GOMEZ DATE OF : 1975 DATE OF ADMISSION: 03/29/2022 19:49 (CDT) J96.01 Chronic Hypoxemic Respiratory FailureCHIEF COMPLAINT: Debility secondary to respiratory failure and prolonged hospitaliztion SUBJECTIVE: Pt denied any depression. Pt denied any Shortness of Breath. WBC 5.1, Hgb 9.9, glu 80 to 86, prealbumin 14.3, UA suggests a UTI but no growth on cultures. Chest x-ray 03-29-22, improved aeration of lungs. Ambulated 140' with a rolling walker and standby assistance. VITAL SIGNS Temperature: 98.0 F SBP/DBP: 121/72 Pulse: 87 Resp: 15 MEDICATION ALLERGIES: No Known Drug Allergies (NKDA) ENVIRONMENTAL ALLERGIES: - Substance Allergies None Known - Other Allergies Penicillin NURSING: - Shower allowing shower PRECAUTIONS: - Fall Precaution Bed alarm TABS alarm Wheel chair alarm - Incontinence Bowel Incontinence - DVT Risk due to restricted mobility and obesity - Skin Breakdown Risk due to restricted mobility and age - Cardiac Precaution Monitor blood pressure, heart rate, lower extremity edema, notify MD for shortness of breath or chest pain Monitor patient for excessive elevation of heart rate and blood pressure during therapy Nursing and Therapy to monitor pt before and after therapy sessions for signs of Chest pain - Aspiration Precaution Seated at 90 degrees while eating and 30 minutes after meals ACTIVITIES OOB only with supervision THERAPIES: - Dietary and Nutrition Adequate Nutrition. Nutritional Education. Nutritional Supplements. - Occupational Therapy Cognitive Retraining. Patient needs Occupational Therapy for a daily minimum of 1.5 hours at least 5 out of 7 days, to improve Activities of Daily Living, including: Eating, Grooming, Bathing, Dressing, Toileting, Toilet Transfers, Community Reintegration, Higher functional activities, Adaptive Equipme nt, Splinting, Household Tasks, and Other activities as determined. Visual Perceptual Training. Evalu ate and Treat. UE Strengthening. UE ROM. Safety Awareness. Indep. ADL's- Higher Level Functioning. Pa tient/Family Education. - Speech Therapy Cognitive Training. Expressive Language Skills. Memory Strategies. Patient needs Speech Therapy for a daily minimum of 1.5 hours at least 5 out of 7 days, to improve: Swallowing, Cognition, Language Sk ills, and Compensatory Strategies. Receptive Language Skills. Speech Intelligibility Training. - Physical Therapy Patient needs Physical Therapy for a daily minimum of 1.5 hours at least 5 out of 7 days, to improve: Mobility, Strengthening, Transfers, Stretching, ROM, Endurance, Ability to manage stairs, Gait, and Balance. Safety Awareness. Wheelchair Management. Evaluate and Treat. Patient/Family Education. Modal ities Training. - Functional Scores Obtained on 03/26/2022. PHYSICAL EXAM - Gen Alert and awake Lying in bed No apparent distress Oriented to: person, time, and place - Skin No skin breakdown. No abnormalities - Eyes No abnormalities - ENMT No abnormalities - Neck No abnormalities - CVS RRR - Chest Mildly decreased breath sounds bilaterally. - Resp No wheezing - Abd Obese, soft, nontender - GI nondistended Deferred - No abnormalities - Ext Mild bilateral lower extremity edema. - MSK 4+/5 weakness in both lower extremities. - Neuro No focal deficits ASSESSMENT: Pt. is a 46 yo female.On 03/11/2022 she was admitted to [facility] with diagnosis J 96.01 Chronic Hypoxemic Respiratory Failure.Her impairment category is Medically Complex Conditions 1 7 - Respiratory Disorders - Non-ventilator Dependent (17.52).Pre-morbidly, Pt. was independent/mod-I in Locomotion, Self-Care, and Safety Awareness; and she had good Balance, Transfers Control, and End urance.Currently, she has deficits of Locomotion, Safety Awareness, Balance, Self-Care, and Endurance .Pt. is now referred to [facility] for acute in-patient rehabilitation in [facility] to maximize patient's functional independence in activities of daily living, strength, ROM, and mob ility.- Rehab Goal Patient has realistic goal of being discharged at assistance level 7-Ind to reside at Home with Fami ly/Relatives. MDM/PLAN: - Physical Therapy Gait dysfunction - to improve, our physical therapists will perform initial evaluation of pt's statu s upon admission and devise an individualized program for Gait Training, and Wheel Chair mobility Need for home safety evaluation - to improve, our physical therapists will perform initial evaluatio n of pt's status upon admission and devise an individualized program for Home Evaluation Need in caregiver upon discharge - to improve, our physical therapists will perform initial evaluati on of pt's status upon admission and devise an individualized program for Caregiver Training New precaution - to improve, our physical therapists will perform initial evaluation of pt's status upon admission and devise an individualized program for Patient precaution education Edema - to improve, our physical therapists will perform initial evaluation of pt's status upon admi ssion and devise an individualized program for Elevation Training, and Lymphedema Therapy Poor balance - to improve, our physical therapists will perform initial evaluation of pt's status up on admission and devise an individualized program for Balance Training Poor endurance - to improve, our physical therapists will perform initial evaluation of pt's status upon admission and devise an individualized program for Endurance Training Weakness - to improve, our physical therapists will perform initial evaluation of pt's status upon a dmission and devise an individualized program for Aquatic Therapy, Neuromuscular Reeducation, and Str engthening Achieving independence - to improve, our physical therapists will perform initial evaluation of pt's status upon admission and devise an individualized program for Community Reintegration Activities - Occupational Therapy ADL deficits - to improve, our occupation therapists will perform initial evaluation of pt's status upon admission and devise an individualized program for Bathing, Bed mobility, Community Reintegratio n, Cooking, Dressing, Eating, Fine Motor Skills, Grooming, Homemaking, Kitchen Mobility, Laundry, Pat ient Education, Safety Awareness, Splinting - Positioning, Transfers(Toilet, Tub, Shower), and Wheel Chair Management Need for pet care worker - to improve, our occupation therapists will perform initial evaluation of pt's status upon admission and devise an individualized program for Caregiver Training Weakness - to improve, our occupation therapists will perform initial evaluation of pt's status upon admission and devise an individualized program for Aquatic Therapy, Balance, Endurance, UE ROM, and UE strengthening - Other See attached MAR (Medication Administration Record) - Diet Type Continue Low Sodium - Diet - Liquid Texture Continue Thin - Tube Feed Continue N/A - Incontinence Bowel Incontinence - DVT Risk due to restricted mobility and obesity - Skin Breakdown Risk due to restricted mobility and age - Aspiration Precaution Seated at 90 degrees while eating and 30 minutes after meals - Cardiac Precaution Monitor blood pressure, heart rate, lower extremity edema, notify MD for shortness of breath or ches t pain Monitor patient for excessive elevation of heart rate and blood pressure during therapy Nursing and Therapy to monitor pt before and after therapy sessions for signs of Chest pain - Fall Precaution Bed alarm TABS alarm Wheel chair alarm - Diet - Solid Texture Continue Regular Continue Cut-up - Shower allowing shower FUNCTIONAL STATUS: UPDATED AT WEEKLY TEAM CONFERENCE - Bladder Same accident frequency: 7-Ind - No accidents in the past 7 days - Bowel Same accident frequency: 7-Ind - No accidents in the past 7 days - Walking Same score based on distance walked: 0(N/A) - Wheelchair Same score based on distance traveled: 0(N/A) FUNCTIONAL STATUS: - Self-Care A. Eating Ind B. Grooming modA C. Bathing maxA D. Dressing - Upper modA E. Dressing - Lower maxA F. Toileting maxA - Sphincter Control G. Bladder control Ashok H. Bowel control Ashok - Transfers Control I. Bed/Chair/Wheelchair maxA J. Toilet maxA K. Tub/Shower Dep - Locomotion L. Walk/Wheelchair (B) Dep M. Stairs Dep - Communication N. Comprehension (B) Ashok O. Expression (B) Ashok - Social Cognition P. Social Interaction Ind Q. Problem Solving Ind R. Memory Ind - Endurance Poor - Balance Poor - Safety Awareness Fair QI SCORES: - Self-Care A. Eating 88-Not attempted due to medical condition or safety concerns B. Oral hygiene 04-Supervision or touching assistance C. Toileting hygiene 88-Not attempted due to medical condition or safety concerns E. Shower/bathe self 88-Not attempted due to medical condition or safety concerns F. Upper body dressing 03-Partial/moderate assistance G. Lower body dressing 02-Substantial/maximal assistance H. Putting on/taking off footwear 02-Substantial/maximal assistance - Mobility A. Roll left and right 02-Substantial/maximal assistance B. Sit to lying 02-Substantial/maximal assistance C. Lying to sitting on side of bed 02-Substantial/maximal assistance D. Sit to stand 02-Substantial/maximal assistance E. Chair/[id number] transfer 02-Substantial/maximal assistance F. Toilet transfer 88-Not attempted due to medical condition or safety concerns G. Car transfer 88-Not attempted due to medical condition or safety concerns I. Walk 10 feet 88-Not attempted due to medical condition or safety concerns J. Walk 50 feet with two turns 88-Not attempted due to medical condition or safety concerns K. Walk 150 feet 88-Not attempted due to medical condition or safety concerns L. Walking 10 feet on uneven surfaces 88-Not attempted due to medical condition or safety concerns M. 1 step (curb) 88-Not attempted due to medical condition or safety concerns N. 4 steps 88-Not attempted due to medical condition or safety concerns O. 12 steps 88-Not attempted due to medical condition or safety concerns P. Picking up object 88-Not attempted due to medical condition or safety concerns R. Wheel 50 feet with two turns 88-Not attempted due to medical condition or safety concerns S. Wheel 150 feet 88-Not attempted due to medical condition or safety concerns - Bladder and Bowel Bladder continence 9-Not applicable Bowel continence 2-Frequently incontinent - Endurance Poor - Balance Poor - Safety Awareness Poor CURRENT FUNC. DEFICITS: Mobility, Endurance, Balance, Safety Awareness, and Self-Care SIGNATURE PANEL: (CDT)
[2022-04-09] MEDS: APIXABAN 5 MG TABLET PO SCH ×2 (07:22→20:38)
[2022-04-09] MEDS: PANTOPRAZOLE 40MG TABLET PO SCH (07:46)
[2022-04-09] MEDS: METOPROLOL XL 25 MG TAB PO SCH (08:00)
[2022-04-09] MEDS: CRANBERRY FRUIT EXTRACT 400 MG CAP PO SCH ×2 (08:12→20:37)
[2022-04-09] MEDS: AMIODARONE HCL 200 MG TAB PO SCH ×2 (08:13→20:39)
[2022-04-09] MEDS: SACUBITRIL/VALSARTAN 24/26 MG TAB PO SCH ×2 (08:13→20:38)
[2022-04-09] MEDS: FUROSEMIDE 20 MG TABLET PO SCH (08:14)
[2022-04-09] MEDS: BUSPIRONE HCL 15 MG TABLET PO SCH (08:14)
[2022-04-09] MEDS: GABAPENTIN 100 MG CAP PO SCH ×2 (08:14→20:37)
[2022-04-09] MEDS: NYSTATIN PWDR 100000 UNIT/GM TOP SCH ×2 (08:15→20:38)
[2022-04-09] MEDS: POTASSIUM CL SA 10 MEQ TAB PO SCH (08:16)
[2022-04-09] MEDS: ENSURE ENLIVE 237 ML CAN PO SCH ×2 (08:19→20:39)
--- NOTE | 2022-04-09 17:43 | R.PN ---
PROGRESS NOTES ENCOUNTER DATE AND TIME: 04/09/2022 17:39 (CDT) NAME GRAZYNA GOMEZ DATE OF : 1975 DATE OF ADMISSION: 03/29/2022 19:49 (CDT) J96.01 Chronic Hypoxemic Respiratory FailureCHIEF COMPLAINT: Debility secondary to respiratory failure and prolonged hospitaliztion SUBJECTIVE: Pt denied any depression. Pt denied any Shortness of Breath. WBC 5.1, Hgb 9.9, glu 80 to 86, prealbumin 14.3, UA suggests a UTI but no growth on cultures. Chest x-ray 03-29-22, improved aeration of lungs. Ambulated 95' with a rolling walker and standby assistance. VITAL SIGNS Temperature: 97.8 F SBP/DBP: 141/78 Pulse: 82 Resp: 16 MEDICATION ALLERGIES: No Known Drug Allergies (NKDA) ENVIRONMENTAL ALLERGIES: - Substance Allergies None Known - Other Allergies Penicillin NURSING: - Shower allowing shower PRECAUTIONS: - Fall Precaution Bed alarm TABS alarm Wheel chair alarm - Incontinence Bowel Incontinence - DVT Risk due to restricted mobility and obesity - Skin Breakdown Risk due to restricted mobility and age - Cardiac Precaution Monitor blood pressure, heart rate, lower extremity edema, notify MD for shortness of breath or chest pain Monitor patient for excessive elevation of heart rate and blood pressure during therapy Nursing and Therapy to monitor pt before and after therapy sessions for signs of Chest pain - Aspiration Precaution Seated at 90 degrees while eating and 30 minutes after meals ACTIVITIES OOB only with supervision THERAPIES: - Dietary and Nutrition Adequate Nutrition. Nutritional Education. Nutritional Supplements. - Occupational Therapy Cognitive Retraining. Patient needs Occupational Therapy for a daily minimum of 1.5 hours at least 5 out of 7 days, to improve Activities of Daily Living, including: Eating, Grooming, Bathing, Dressing, Toileting, Toilet Transfers, Community Reintegration, Higher functional activities, Adaptive Equipme nt, Splinting, Household Tasks, and Other activities as determined. Visual Perceptual Training. Evalu ate and Treat. UE Strengthening. UE ROM. Safety Awareness. Indep. ADL's- Higher Level Functioning. Pa tient/Family Education. - Speech Therapy Cognitive Training. Expressive Language Skills. Memory Strategies. Patient needs Speech Therapy for a daily minimum of 1.5 hours at least 5 out of 7 days, to improve: Swallowing, Cognition, Language Sk ills, and Compensatory Strategies. Receptive Language Skills. Speech Intelligibility Training. - Physical Therapy Patient needs Physical Therapy for a daily minimum of 1.5 hours at least 5 out of 7 days, to improve: Mobility, Strengthening, Transfers, Stretching, ROM, Endurance, Ability to manage stairs, Gait, and Balance. Safety Awareness. Wheelchair Management. Evaluate and Treat. Patient/Family Education. Modal ities Training. - Functional Scores Obtained on 03/26/2022. PHYSICAL EXAM - Gen Alert and awake Lying in bed No apparent distress Oriented to: person, time, and place - Skin No skin breakdown. No abnormalities - Eyes No abnormalities - ENMT No abnormalities - Neck No abnormalities - CVS RRR - Chest Mildly decreased breath sounds bilaterally. - Resp No wheezing - Abd Obese, soft, nontender - GI nondistended Deferred - No abnormalities - Ext Mild bilateral lower extremity edema. - MSK 4+/5 weakness in both lower extremities. - Neuro No focal deficits ASSESSMENT: Pt. is a 46 yo female.On 03/11/2022 she was admitted to [facility] with diagnosis J 96.01 Chronic Hypoxemic Respiratory Failure.Her impairment category is Medically Complex Conditions 1 7 - Respiratory Disorders - Non-ventilator Dependent (17.52).Pre-morbidly, Pt. was independent/mod-I in Locomotion, Self-Care, and Safety Awareness; and she had good Balance, Transfers Control, and End urance.Currently, she has deficits of Locomotion, Safety Awareness, Balance, Self-Care, and Endurance .Pt. is now referred to [facility] for acute in-patient rehabilitation in [facility] to maximize patient's functional independence in activities of daily living, strength, ROM, and mob ility.- Rehab Goal Patient has realistic goal of being discharged at assistance level 7-Ind to reside at Home with Fami ly/Relatives. MDM/PLAN: - Physical Therapy Gait dysfunction - to improve, our physical therapists will perform initial evaluation of pt's statu s upon admission and devise an individualized program for Gait Training, and Wheel Chair mobility Need for home safety evaluation - to improve, our physical therapists will perform initial evaluatio n of pt's status upon admission and devise an individualized program for Home Evaluation Need in caregiver upon discharge - to improve, our physical therapists will perform initial evaluati on of pt's status upon admission and devise an individualized program for Caregiver Training New precaution - to improve, our physical therapists will perform initial evaluation of pt's status upon admission and devise an individualized program for Patient precaution education Edema - to improve, our physical therapists will perform initial evaluation of pt's status upon admi ssion and devise an individualized program for Elevation Training, and Lymphedema Therapy Poor balance - to improve, our physical therapists will perform initial evaluation of pt's status up on admission and devise an individualized program for Balance Training Poor endurance - to improve, our physical therapists will perform initial evaluation of pt's status upon admission and devise an individualized program for Endurance Training Weakness - to improve, our physical therapists will perform initial evaluation of pt's status upon a dmission and devise an individualized program for Aquatic Therapy, Neuromuscular Reeducation, and Str engthening Achieving independence - to improve, our physical therapists will perform initial evaluation of pt's status upon admission and devise an individualized program for Community Reintegration Activities - Occupational Therapy ADL deficits - to improve, our occupation therapists will perform initial evaluation of pt's status upon admission and devise an individualized program for Bathing, Bed mobility, Community Reintegratio n, Cooking, Dressing, Eating, Fine Motor Skills, Grooming, Homemaking, Kitchen Mobility, Laundry, Pat ient Education, Safety Awareness, Splinting - Positioning, Transfers(Toilet, Tub, Shower), and Wheel Chair Management Need for respiratory care specialist - to improve, our occupation therapists will perform initial evaluation of pt's status upon admission and devise an individualized program for Caregiver Training Weakness - to improve, our occupation therapists will perform initial evaluation of pt's status upon admission and devise an individualized program for Aquatic Therapy, Balance, Endurance, UE ROM, and UE strengthening - Other See attached MAR (Medication Administration Record) - Diet Type Continue Low Sodium - Diet - Liquid Texture Continue Thin - Tube Feed Continue N/A - Incontinence Bowel Incontinence - DVT Risk due to restricted mobility and obesity - Skin Breakdown Risk due to restricted mobility and age - Aspiration Precaution Seated at 90 degrees while eating and 30 minutes after meals - Cardiac Precaution Monitor blood pressure, heart rate, lower extremity edema, notify MD for shortness of breath or ches t pain Monitor patient for excessive elevation of heart rate and blood pressure during therapy Nursing and Therapy to monitor pt before and after therapy sessions for signs of Chest pain - Fall Precaution Bed alarm TABS alarm Wheel chair alarm - Diet - Solid Texture Continue Regular Continue Cut-up - Shower allowing shower FUNCTIONAL STATUS: UPDATED AT WEEKLY TEAM CONFERENCE - Bladder Same accident frequency: 7-Ind - No accidents in the past 7 days - Bowel Same accident frequency: 7-Ind - No accidents in the past 7 days - Walking Same score based on distance walked: 0(N/A) - Wheelchair Same score based on distance traveled: 0(N/A) FUNCTIONAL STATUS: - Self-Care A. Eating Ind B. Grooming modA C. Bathing maxA D. Dressing - Upper modA E. Dressing - Lower maxA F. Toileting maxA - Sphincter Control G. Bladder control Ashok H. Bowel control Ashok - Transfers Control I. Bed/Chair/Wheelchair maxA J. Toilet maxA K. Tub/Shower Dep - Locomotion L. Walk/Wheelchair (B) Dep M. Stairs Dep - Communication N. Comprehension (B) Ashok O. Expression (B) Ashok - Social Cognition P. Social Interaction Ind Q. Problem Solving Ind R. Memory Ind - Endurance Poor - Balance Poor - Safety Awareness Fair QI SCORES: - Self-Care A. Eating 88-Not attempted due to medical condition or safety concerns B. Oral hygiene 04-Supervision or touching assistance C. Toileting hygiene 88-Not attempted due to medical condition or safety concerns E. Shower/bathe self 88-Not attempted due to medical condition or safety concerns F. Upper body dressing 03-Partial/moderate assistance G. Lower body dressing 02-Substantial/maximal assistance H. Putting on/taking off footwear 02-Substantial/maximal assistance - Mobility A. Roll left and right 02-Substantial/maximal assistance B. Sit to lying 02-Substantial/maximal assistance C. Lying to sitting on side of bed 02-Substantial/maximal assistance D. Sit to stand 02-Substantial/maximal assistance E. Chair/[id number] transfer 02-Substantial/maximal assistance F. Toilet transfer 88-Not attempted due to medical condition or safety concerns G. Car transfer 88-Not attempted due to medical condition or safety concerns I. Walk 10 feet 88-Not attempted due to medical condition or safety concerns J. Walk 50 feet with two turns 88-Not attempted due to medical condition or safety concerns K. Walk 150 feet 88-Not attempted due to medical condition or safety concerns L. Walking 10 feet on uneven surfaces 88-Not attempted due to medical condition or safety concerns M. 1 step (curb) 88-Not attempted due to medical condition or safety concerns N. 4 steps 88-Not attempted due to medical condition or safety concerns O. 12 steps 88-Not attempted due to medical condition or safety concerns P. Picking up object 88-Not attempted due to medical condition or safety concerns R. Wheel 50 feet with two turns 88-Not attempted due to medical condition or safety concerns S. Wheel 150 feet 88-Not attempted due to medical condition or safety concerns - Bladder and Bowel Bladder continence 9-Not applicable Bowel continence 2-Frequently incontinent - Endurance Poor - Balance Poor - Safety Awareness Poor CURRENT FUNC. DEFICITS: Mobility, Endurance, Balance, Safety Awareness, and Self-Care SIGNATURE PANEL: (CDT)
[2022-04-10 04:40] LABS: Absolute Lymphocytes (CBC) 1.2 K/uL (0.7-4.9); Hematocrit 32.6 % (36.0-45.0); Lymphocytes % 25.7 % (15.3-44.8); MPV 9.4 fL (7.6-11.3); RBC Red Blood Cell Count 4.31 M/uL (3.86-4.86)
[2022-04-10 04:55] LABS: Albumin 2.7 g/dL (3.4-5.0); Magnesium 1.9 mg/dL (1.8-2.4); Potassium 3.5 mmol/L (3.5-5.1); Prealbumin 11.7 mg/dL (20-40)
[2022-04-10] MEDS: APIXABAN 5 MG TABLET PO SCH ×2 (07:16→20:00)
[2022-04-10] MEDS: PANTOPRAZOLE 40MG TABLET PO SCH (07:16)
[2022-04-10] MEDS: NYSTATIN PWDR 100000 UNIT/GM TOP SCH ×2 (08:15→19:59)
[2022-04-10] MEDS: SACUBITRIL/VALSARTAN 24/26 MG TAB PO SCH ×2 (08:16→20:00)
[2022-04-10] MEDS: FUROSEMIDE 20 MG TABLET PO SCH (08:16)
[2022-04-10] MEDS: GABAPENTIN 100 MG CAP PO SCH ×2 (08:16→20:00)
[2022-04-10] MEDS: CRANBERRY FRUIT EXTRACT 400 MG CAP PO SCH ×2 (08:16→20:00)
[2022-04-10] MEDS: METOPROLOL XL 25 MG TAB PO SCH (08:17)
[2022-04-10] MEDS: AMIODARONE HCL 200 MG TAB PO SCH ×2 (08:17→20:00)
[2022-04-10] MEDS: POTASSIUM CL SA 10 MEQ TAB PO SCH (08:17)
[2022-04-10] MEDS: BUSPIRONE HCL 15 MG TABLET PO SCH (08:18)
[2022-04-10] MEDS: ENSURE ENLIVE 237 ML CAN PO SCH ×2 (08:18→20:00)
--- NOTE | 2022-04-10 17:44 | R.PN ---
PROGRESS NOTES ENCOUNTER DATE AND TIME: 04/10/2022 17:40 (CDT) NAME GRAZYNA GOMEZ DATE OF : 1975 DATE OF ADMISSION: 03/29/2022 19:49 (CDT) J96.01 Chronic Hypoxemic Respiratory FailureCHIEF COMPLAINT: Debility secondary to respiratory failure and prolonged hospitaliztion SUBJECTIVE: Pt denied any depression. Pt denied any Shortness of Breath. WBC 4.7, Hgb 9.9, glu 80 to 86, prealbumin 11.7, UA suggests a UTI but no growth on cultures. Chest x-ray 03-29-22, improved aeration of lungs. Ambulated 50' with a rolling walker and standby assistance. Bed mobility done with modified independe nce. VITAL SIGNS Temperature: 97.8 F SBP/DBP: 129/82 Pulse: 85 Resp: 16 MEDICATION ALLERGIES: No Known Drug Allergies (NKDA) ENVIRONMENTAL ALLERGIES: - Substance Allergies None Known - Other Allergies Penicillin NURSING: - Shower allowing shower PRECAUTIONS: - Fall Precaution Bed alarm TABS alarm Wheel chair alarm - Incontinence Bowel Incontinence - DVT Risk due to restricted mobility and obesity - Skin Breakdown Risk due to restricted mobility and age - Cardiac Precaution Monitor blood pressure, heart rate, lower extremity edema, notify MD for shortness of breath or chest pain Monitor patient for excessive elevation of heart rate and blood pressure during therapy Nursing and Therapy to monitor pt before and after therapy sessions for signs of Chest pain - Aspiration Precaution Seated at 90 degrees while eating and 30 minutes after meals ACTIVITIES OOB only with supervision THERAPIES: - Dietary and Nutrition Adequate Nutrition. Nutritional Education. Nutritional Supplements. - Occupational Therapy Cognitive Retraining. Patient needs Occupational Therapy for a daily minimum of 1.5 hours at least 5 out of 7 days, to improve Activities of Daily Living, including: Eating, Grooming, Bathing, Dressing, Toileting, Toilet Transfers, Community Reintegration, Higher functional activities, Adaptive Equipme nt, Splinting, Household Tasks, and Other activities as determined. Visual Perceptual Training. Evalu ate and Treat. UE Strengthening. UE ROM. Safety Awareness. Indep. ADL's- Higher Level Functioning. Pa tient/Family Education. - Speech Therapy Cognitive Training. Expressive Language Skills. Memory Strategies. Patient needs Speech Therapy for a daily minimum of 1.5 hours at least 5 out of 7 days, to improve: Swallowing, Cognition, Language Sk ills, and Compensatory Strategies. Receptive Language Skills. Speech Intelligibility Training. - Physical Therapy Patient needs Physical Therapy for a daily minimum of 1.5 hours at least 5 out of 7 days, to improve: Mobility, Strengthening, Transfers, Stretching, ROM, Endurance, Ability to manage stairs, Gait, and Balance. Safety Awareness. Wheelchair Management. Evaluate and Treat. Patient/Family Education. Modal ities Training. - Functional Scores Obtained on 03/26/2022. PHYSICAL EXAM - Gen Alert and awake Lying in bed No apparent distress Oriented to: person, time, and place - Skin No skin breakdown. No abnormalities - Eyes No abnormalities - ENMT No abnormalities - Neck No abnormalities - CVS RRR - Chest Mildly decreased breath sounds bilaterally. - Resp No wheezing - Abd Obese, soft, nontender - GI nondistended Deferred - No abnormalities - Ext Mild bilateral lower extremity edema. - MSK 4+/5 weakness in both lower extremities. - Neuro No focal deficits ASSESSMENT: Pt. is a 46 yo female.On 03/11/2022 she was admitted to [facility] with diagnosis J 96.01 Chronic Hypoxemic Respiratory Failure.Her impairment category is Medically Complex Conditions 1 7 - Respiratory Disorders - Non-ventilator Dependent (17.52).Pre-morbidly, Pt. was independent/mod-I in Locomotion, Self-Care, and Safety Awareness; and she had good Balance, Transfers Control, and End urance.Currently, she has deficits of Locomotion, Safety Awareness, Balance, Self-Care, and Endurance .Pt. is now referred to [facility] for acute in-patient rehabilitation in [facility] to maximize patient's functional independence in activities of daily living, strength, ROM, and mob ility.- Rehab Goal Patient has realistic goal of being discharged at assistance level 7-Ind to reside at Home with Fami ly/Relatives. MDM/PLAN: - Physical Therapy Gait dysfunction - to improve, our physical therapists will perform initial evaluation of pt's statu s upon admission and devise an individualized program for Gait Training, and Wheel Chair mobility Need for home safety evaluation - to improve, our physical therapists will perform initial evaluatio n of pt's status upon admission and devise an individualized program for Home Evaluation Need in caregiver upon discharge - to improve, our physical therapists will perform initial evaluati on of pt's status upon admission and devise an individualized program for Caregiver Training New precaution - to improve, our physical therapists will perform initial evaluation of pt's status upon admission and devise an individualized program for Patient precaution education Edema - to improve, our physical therapists will perform initial evaluation of pt's status upon admi ssion and devise an individualized program for Elevation Training, and Lymphedema Therapy Poor balance - to improve, our physical therapists will perform initial evaluation of pt's status up on admission and devise an individualized program for Balance Training Poor endurance - to improve, our physical therapists will perform initial evaluation of pt's status upon admission and devise an individualized program for Endurance Training Weakness - to improve, our physical therapists will perform initial evaluation of pt's status upon a dmission and devise an individualized program for Aquatic Therapy, Neuromuscular Reeducation, and Str engthening Achieving independence - to improve, our physical therapists will perform initial evaluation of pt's status upon admission and devise an individualized program for Community Reintegration Activities - Occupational Therapy ADL deficits - to improve, our occupation therapists will perform initial evaluation of pt's status upon admission and devise an individualized program for Bathing, Bed mobility, Community Reintegratio n, Cooking, Dressing, Eating, Fine Motor Skills, Grooming, Homemaking, Kitchen Mobility, Laundry, Pat ient Education, Safety Awareness, Splinting - Positioning, Transfers(Toilet, Tub, Shower), and Wheel Chair Management Need for patient care representative - to improve, our occupation therapists will perform initial evaluation of pt's status upon admission and devise an individualized program for Caregiver Training Weakness - to improve, our occupation therapists will perform initial evaluation of pt's status upon admission and devise an individualized program for Aquatic Therapy, Balance, Endurance, UE ROM, and UE strengthening - Other See attached MAR (Medication Administration Record) - Diet Type Continue Low Sodium - Diet - Liquid Texture Continue Thin - Tube Feed Continue N/A - Incontinence Bowel Incontinence - DVT Risk due to restricted mobility and obesity - Skin Breakdown Risk due to restricted mobility and age - Aspiration Precaution Seated at 90 degrees while eating and 30 minutes after meals - Cardiac Precaution Monitor blood pressure, heart rate, lower extremity edema, notify MD for shortness of breath or ches t pain Monitor patient for excessive elevation of heart rate and blood pressure during therapy Nursing and Therapy to monitor pt before and after therapy sessions for signs of Chest pain - Fall Precaution Bed alarm TABS alarm Wheel chair alarm - Diet - Solid Texture Continue Regular Continue Cut-up - Shower allowing shower FUNCTIONAL STATUS: UPDATED AT WEEKLY TEAM CONFERENCE - Bladder Same accident frequency: 7-Ind - No accidents in the past 7 days - Bowel Same accident frequency: 7-Ind - No accidents in the past 7 days - Walking Same score based on distance walked: 0(N/A) - Wheelchair Same score based on distance traveled: 0(N/A) FUNCTIONAL STATUS: - Self-Care A. Eating Ind B. Grooming modA C. Bathing maxA D. Dressing - Upper modA E. Dressing - Lower maxA F. Toileting maxA - Sphincter Control G. Bladder control Ashok H. Bowel control Ashok - Transfers Control I. Bed/Chair/Wheelchair maxA J. Toilet maxA K. Tub/Shower Dep - Locomotion L. Walk/Wheelchair (B) Dep M. Stairs Dep - Communication N. Comprehension (B) Ashok O. Expression (B) Ashok - Social Cognition P. Social Interaction Ind Q. Problem Solving Ind R. Memory Ind - Endurance Poor - Balance Poor - Safety Awareness Fair QI SCORES: - Self-Care A. Eating 88-Not attempted due to medical condition or safety concerns B. Oral hygiene 04-Supervision or touching assistance C. Toileting hygiene 88-Not attempted due to medical condition or safety concerns E. Shower/bathe self 88-Not attempted due to medical condition or safety concerns F. Upper body dressing 03-Partial/moderate assistance G. Lower body dressing 02-Substantial/maximal assistance H. Putting on/taking off footwear 02-Substantial/maximal assistance - Mobility A. Roll left and right 02-Substantial/maximal assistance B. Sit to lying 02-Substantial/maximal assistance C. Lying to sitting on side of bed 02-Substantial/maximal assistance D. Sit to stand 02-Substantial/maximal assistance E. Chair/[id number] transfer 02-Substantial/maximal assistance F. Toilet transfer 88-Not attempted due to medical condition or safety concerns G. Car transfer 88-Not attempted due to medical condition or safety concerns I. Walk 10 feet 88-Not attempted due to medical condition or safety concerns J. Walk 50 feet with two turns 88-Not attempted due to medical condition or safety concerns K. Walk 150 feet 88-Not attempted due to medical condition or safety concerns L. Walking 10 feet on uneven surfaces 88-Not attempted due to medical condition or safety concerns M. 1 step (curb) 88-Not attempted due to medical condition or safety concerns N. 4 steps 88-Not attempted due to medical condition or safety concerns O. 12 steps 88-Not attempted due to medical condition or safety concerns P. Picking up object 88-Not attempted due to medical condition or safety concerns R. Wheel 50 feet with two turns 88-Not attempted due to medical condition or safety concerns S. Wheel 150 feet 88-Not attempted due to medical condition or safety concerns - Bladder and Bowel Bladder continence 9-Not applicable Bowel continence 2-Frequently incontinent - Endurance Poor - Balance Poor - Safety Awareness Poor CURRENT FUNC. DEFICITS: Mobility, Endurance, Balance, Safety Awareness, and Self-Care SIGNATURE PANEL: (CDT)
[2022-04-11] MEDS: GABAPENTIN 100 MG CAP PO SCH ×2 (08:33→20:31)
[2022-04-11] MEDS: CRANBERRY FRUIT EXTRACT 400 MG CAP PO SCH ×2 (08:33→20:29)
[2022-04-11] MEDS: METOPROLOL XL 25 MG TAB PO SCH (08:33)
[2022-04-11] MEDS: FUROSEMIDE 20 MG TABLET PO SCH (08:33)
[2022-04-11] MEDS: POTASSIUM CL SA 10 MEQ TAB PO SCH (08:33)
[2022-04-11] MEDS: BUSPIRONE HCL 15 MG TABLET PO SCH (08:34)
[2022-04-11] MEDS: PANTOPRAZOLE 40MG TABLET PO SCH (08:34)
[2022-04-11] MEDS: SACUBITRIL/VALSARTAN 24/26 MG TAB PO SCH ×2 (08:34→20:30)
[2022-04-11] MEDS: AMIODARONE HCL 200 MG TAB PO SCH ×2 (08:34→20:29)
[2022-04-11] MEDS: APIXABAN 5 MG TABLET PO SCH ×2 (08:34→20:30)
[2022-04-11] MEDS: NYSTATIN PWDR 100000 UNIT/GM TOP SCH ×2 (08:35→20:30)
[2022-04-11] MEDS: ENSURE ENLIVE 237 ML CAN PO SCH ×2 (08:35→20:40)
--- NOTE | 2022-04-11 09:43 | P.RH.PN ---
Estimated Length of Stay: 17 Expected Discharge Date: 04/15/22 Discharge Disposition Plan: Home Family Support: Yes Vital Signs: Last Vital Signs Temp 96.3 F L 04/10/22 20:00 Pulse 85 04/11/22 08:33 Resp 16 04/10/22 20:00 BP 142/79 H 04/11/22 08:33 Pulse Ox 100 04/10/22 20:00 Laboratory: Laboratory Last Values WBC 4.7 K/uL (4.3-10.9) 04/10/22 04:12 RBC 4.31 M/uL (3.86-4.86) 04/10/22 04:12 Hgb 9.9 g/dL (12.0-15.0) L 04/10/22 04:12 Hct 32.6 % (36.0-45.0) L 04/10/22 04:12 MCV 75.7 fL (80-100) L 04/10/22 04:12 MCH 23.0 pg (27.0-35.0) L 04/10/22 04:12 MCHC 30.3 g/dL (32.0-36.0) L 04/10/22 04:12 RDW 20.2 % (12.1-15.2) H 04/10/22 04:12 Plt Count 200 K/uL (152-406) D 04/10/22 04:12 MPV 9.4 fL (7.6-11.3) 04/10/22 04:12 Neutrophils % 59.6 % (41.7-73.7) 04/10/22 04:12 Lymphocytes % 25.7 % (15.3-44.8) 04/10/22 04:12 Monocytes % 10.9 % (3.3-12.3) 04/10/22 04:12 Eosinophils % 3.1 % (0-4.4) 04/10/22 04:12 Basophils % 0.7 % (0-1.3) 04/10/22 04:12 Absolute Neutrophils 2.8 K/uL (1.8-8.0) 04/10/22 04:12 Absolute Lymphocytes 1.2 K/uL (0.7-4.9) 04/10/22 04:12 Absolute Monocytes 0.5 K/uL (0.1-1.3) 04/10/22 04:12 Absolute Eosinophils 0.1 K/uL (0-0.5) 04/10/22 04:12 Absolute Basophils 0.0 K/uL (0-0.5) 04/10/22 04:12 Platelet Estimate Adeq 04/03/22 05:56 Anisocytosis 1+ 04/03/22 05:56 Microcytosis 1+ 04/03/22 05:56 Morphology Comment Noted (NOT SEEN) 04/03/22 05:56 Sodium 142 mmol/L (136-145) 04/10/22 04:12 Potassium 3.5 mmol/L (3.5-5.1) 04/10/22 04:12 Chloride 107 mmol/L (98-107) 04/10/22 04:12 Carbon Dioxide 32 mmol/L (21-32) 04/10/22 04:12 Anion Gap 6.5 mEq/L (5.0-15.0) 04/10/22 04:12 BUN 11 mg/dL (7-18) 04/10/22 04:12 Creatinine 0.56 mg/dL (0.55-1.3) 04/10/22 04:12 Est GFR (CKD-EPI) 115 ml/min (=/>90) 04/10/22 04:12 Glucose 98 mg/dL (74-106) 04/10/22 04:12 POC Glucose 86 mg/dL (65-120) 04/05/22 06:48 Calcium 8.7 mg/dL (8.5-10.1) 04/10/22 04:12 Magnesium 1.9 mg/dL (1.8-2.4) 04/10/22 04:12 Albumin 2.7 g/dL (3.4-5.0) L 04/10/22 04:12 Prealbumin 11.7 mg/dL (20-40) L 04/10/22 04:12 Urine Color Yellow (Yellow) 03/30/22 05:46 Urine Appearance Clear (Clear) 03/30/22 05:46 Urine pH 6.0 (5.0-7.0) 03/30/22 05:46 Ur Specific [place] 1.025 (1.005-1.030) 03/30/22 05:46 Glucose (UA)(Auto) Negative (Negative) 03/30/22 05:46 Urine Ketones Negative (Negative) 03/30/22 05:46 Urine Blood Trace-intact (Negative) H 03/30/22 05:46 Urine Nitrite Negative (Negative) 03/30/22 05:46 Urine Bilirubin Negative (Negative) 03/30/22 05:46 Urine Urobilinogen 0.2 mg/dL (0.2-1.0) 03/30/22 05:46 Ur Leukocyte Esterase Negative (Negative) 03/30/22 05:46 Urine RBC 5-10 /HPF (NONE SEEN) H 03/30/22 05:46 Urine WBC <5 /HPF (<5) 03/30/22 05:46 Ur Squamous Epith Cells <5 /HPF (NONE SEEN) 03/30/22 05:46 Ur Urothelial Cells Cancelled 03/30/22 04:20 Calcium Oxalate Crystal Cancelled 03/30/22 04:20 Uric Acid Crystals Cancelled 03/30/22 04:20 Triple Phos Crystals Cancelled 03/30/22 04:20 Other Crystals Cancelled 03/30/22 04:20 Amorphous Sediment Cancelled 03/30/22 04:20 Glitter Cells Cancelled 03/30/22 04:20 Urine Bacteria 20-50 /HPF (<20) H 03/30/22 05:46 Hyaline Casts Cancelled 03/30/22 04:20 Fine Granular Casts Cancelled 03/30/22 04:20 Coarse Granular Casts Cancelled 03/30/22 04:20 Waxy Casts Cancelled 03/30/22 04:20 RBC Casts Cancelled 03/30/22 04:20 WBC Casts Cancelled 03/30/22 04:20 Urine Mucus 2+ /HPF (NONE SEEN) 03/30/22 05:46 Urine Other Cancelled 03/30/22 04:20 Urine Trichomonas Cancelled 03/30/22 04:20 Urine Yeast Cancelled 03/30/22 04:20 Ur Yeast w Hyphae Cancelled 03/30/22 04:20 Urine Yeast (Budding) Cancelled 03/30/22 04:20 Urine Sperm Cancelled 03/30/22 04:20 Urine Culture Reflexed Not needed 03/30/22 05:46 Urine Total Volume Cancelled 03/30/22 04:20 Urine Total Protein Trace (Negative) H 03/30/22 05:46 SARS-CoV-2 Rap RNA(RT-PCR) Cancelled 04/05/22 Unknown Smear Scan Ok (OK) 04/03/22 05:56 Weight: 421 lb Wound Present: No Closed Surgical Incision Present: No Negative Pressure Wound Therapy Present: No Physician Update: Lab reviewed. Bed mobility is CGA, sit to stand Ashok. Walking 35' with RW and SBA. She has SCD. She has 2 large bony spurs on the left ankle causing swelling. Refer to podiatry after discharge. Functional Improvement: Patient has met all short-term goals at this time, and continues to work toward progress to reaching all long-term goals. Patient presents w/ good overall work ethic and technique, however continues to fatigue quickly. Summary: Patient's care plan and group home goals have been reviewed and revised as necessary. Please see the Rehabilitation Signature page for all necessary signatures.
[2022-04-11] MEDS: ACETAMINOPHEN 325 MG TABLET PO PRN (20:40)
[2022-04-12 05:17] VITALS: BMI 65.7
[2022-04-12] MEDS: APIXABAN 5 MG TABLET PO SCH ×2 (07:23→19:24)
[2022-04-12] MEDS: PANTOPRAZOLE 40MG TABLET PO SCH (07:23)
[2022-04-12] MEDS: FUROSEMIDE 20 MG TABLET PO SCH (08:50)
[2022-04-12] MEDS: CRANBERRY FRUIT EXTRACT 400 MG CAP PO SCH ×2 (08:51→19:25)
[2022-04-12] MEDS: AMIODARONE HCL 200 MG TAB PO SCH ×2 (08:51→19:25)
[2022-04-12] MEDS: GABAPENTIN 100 MG CAP PO SCH ×2 (08:51→19:24)
[2022-04-12] MEDS: SACUBITRIL/VALSARTAN 24/26 MG TAB PO SCH ×2 (08:51→19:24)
[2022-04-12] MEDS: POTASSIUM CL SA 10 MEQ TAB PO SCH (08:52)
[2022-04-12] MEDS: BUSPIRONE HCL 15 MG TABLET PO SCH (08:52)
[2022-04-12] MEDS: METOPROLOL XL 25 MG TAB PO SCH (08:52)
[2022-04-12] MEDS: ENSURE ENLIVE 237 ML CAN PO SCH ×2 (09:46→19:25)
[2022-04-12] MEDS: NYSTATIN PWDR 100000 UNIT/GM TOP SCH ×2 (09:46→19:24)
[2022-04-12] MEDS: ACETAMINOPHEN 325 MG TABLET PO PRN (19:34)
[2022-04-13] MEDS: PANTOPRAZOLE 40MG TABLET PO SCH (07:04)
[2022-04-13] MEDS: POTASSIUM CL SA 10 MEQ TAB PO SCH (07:28)
[2022-04-13] MEDS: SACUBITRIL/VALSARTAN 24/26 MG TAB PO SCH ×2 (07:28→19:37)
[2022-04-13] MEDS: GABAPENTIN 100 MG CAP PO SCH ×2 (07:29→19:36)
[2022-04-13] MEDS: METOPROLOL XL 25 MG TAB PO SCH (07:29)
[2022-04-13] MEDS: BUSPIRONE HCL 15 MG TABLET PO SCH (07:29)
[2022-04-13] MEDS: CRANBERRY FRUIT EXTRACT 400 MG CAP PO SCH ×2 (07:30→19:37)
[2022-04-13] MEDS: FUROSEMIDE 20 MG TABLET PO SCH (07:30)
[2022-04-13] MEDS: APIXABAN 5 MG TABLET PO SCH (07:30)
[2022-04-13] MEDS: AMIODARONE HCL 200 MG TAB PO SCH ×2 (07:30→19:37)
[2022-04-13] MEDS: ENSURE ENLIVE 237 ML CAN PO SCH ×2 (07:31→19:37)
[2022-04-13] MEDS: NYSTATIN PWDR 100000 UNIT/GM TOP SCH ×2 (09:22→19:36)
[2022-04-13] MEDS: APIXABAN 2.5 MG TABLET PO SCH (19:37)
[2022-04-13 20:47] VITALS: O2SAT 99
[2022-04-14] MEDS: PANTOPRAZOLE 40MG TABLET PO SCH (06:45)
[2022-04-14] MEDS: APIXABAN 2.5 MG TABLET PO SCH ×2 (08:40→20:19)
[2022-04-14] MEDS: CRANBERRY FRUIT EXTRACT 400 MG CAP PO SCH ×2 (08:48→20:19)
[2022-04-14] MEDS: GABAPENTIN 100 MG CAP PO SCH ×2 (08:48→20:19)
[2022-04-14] MEDS: SACUBITRIL/VALSARTAN 24/26 MG TAB PO SCH ×2 (08:48→20:19)
[2022-04-14] MEDS: BUSPIRONE HCL 15 MG TABLET PO SCH (08:49)
[2022-04-14] MEDS: METOPROLOL XL 25 MG TAB PO SCH (08:49)
[2022-04-14] MEDS: FUROSEMIDE 20 MG TABLET PO SCH (08:49)
[2022-04-14] MEDS: AMIODARONE HCL 200 MG TAB PO SCH ×2 (08:49→20:19)
[2022-04-14] MEDS: POTASSIUM CL SA 10 MEQ TAB PO SCH (08:50)
[2022-04-14] MEDS: ENSURE ENLIVE 237 ML CAN PO SCH ×2 (08:50→20:20)
[2022-04-14] MEDS: NYSTATIN PWDR 100000 UNIT/GM TOP SCH ×2 (09:23→20:19)
[2022-04-14 09:32] LABS: Hematocrit 33.9 % (36.0-45.0); Lymphocytes % 21.4 % (15.3-44.8); MPV 9.3 fL (7.6-11.3); RBC Red Blood Cell Count 4.47 M/uL (3.86-4.86)
[2022-04-14 09:45] LABS: Potassium 3.7 mmol/L (3.5-5.1)
[2022-04-14 11:49] LABS: Anisocytosis 1+; Blood Morphology Comment NOTED (NOT SEEN); Hypochromasia 1+; Platelet Estimate ADEQ; Poikilocytosis 2+; White Blood Cell Scan OK (OK)
[2022-04-14 11:50] LABS: Burr Cells 2+; Teardrop Cell 2+
[2022-04-15 06:42] VITALS: BP 119/69; TEMP 96.9
[2022-04-15] MEDS: PANTOPRAZOLE 40MG TABLET PO SCH (07:29)
[2022-04-15] MEDS: APIXABAN 2.5 MG TABLET PO SCH (07:29)
--- NOTE | 2022-04-15 07:56 | RAD REPORT ---
EXAM DESCRIPTION: US - Abdomen Exam Complete - 04/14/2022 11:06 pm CLINICAL HISTORY: Abdominal pain COMPARISON: No comparisons FINDINGS: No aortic aneurysm. Increased echogenicity of the liver. The portal vein is patent. The IVC at the level of the liver is unremarkable. No ascites. Cholelithiasis is present. No gallbladder wall thickening. No pericholecystic fluid. No biliary ducta l dilatation. The pancreas was grossly unremarkable. The right kidney measures 14.6 cm normal echotexture. No hydronephrosis. No suspicious masses. The left kidney measures 11.7 cm with a normal echotexture. No hydronephrosis. No suspicious masses. The spleen is unremarkable. IMPRESSION: Cholelithiasis without sonographic evidence acute cholecystitis. No biliary ductal dilat ation. Hepatic steatosis.
[2022-04-15] MEDS: NYSTATIN PWDR 100000 UNIT/GM TOP SCH (08:00)
[2022-04-15] MEDS: SACUBITRIL/VALSARTAN 24/26 MG TAB PO SCH (08:31)
[2022-04-15] MEDS: CRANBERRY FRUIT EXTRACT 400 MG CAP PO SCH (08:31)
[2022-04-15] MEDS: GABAPENTIN 100 MG CAP PO SCH (08:31)
[2022-04-15] MEDS: METOPROLOL XL 25 MG TAB PO SCH (08:32)
[2022-04-15] MEDS: POTASSIUM CL SA 10 MEQ TAB PO SCH (08:32)
[2022-04-15] MEDS: AMIODARONE HCL 200 MG TAB PO SCH (08:32)
[2022-04-15] MEDS: FUROSEMIDE 20 MG TABLET PO SCH (08:33)
[2022-04-15] MEDS: BUSPIRONE HCL 15 MG TABLET PO SCH (08:33)
[2022-04-15] MEDS: ENSURE ENLIVE 237 ML CAN PO SCH (09:19)
--- NOTE | 2022-04-15 18:41 | R.PN ---
PROGRESS NOTES ENCOUNTER DATE AND TIME: 04/15/2022 18:37 (CDT) NAME GRAZYNA GOMEZ DATE OF : 1975 DATE OF ADMISSION: 03/29/2022 19:49 (CDT) J96.01 Chronic Hypoxemic Respiratory FailureCHIEF COMPLAINT: Debility secondary to respiratory failure and prolonged hospitaliztion SUBJECTIVE: Pt denied any depression. Pt denied any Shortness of Breath. WBC 4.8, Hgb 10.3, glu 80 to 86, prealbumin 11.7, UA suggests a UTI but no growth on cultures. Chest x-ray 03-29-22, improved aeration of lungs. Ambulated 50' with a rolling walker and standby assistance. Wheelchair mobility 40' with SBA. Bed mob ility done with modified independence. VITAL SIGNS Temperature: 97.6 F SBP/DBP: 119/69 Pulse: 86 Resp: 16 MEDICATION ALLERGIES: No Known Drug Allergies (NKDA) ENVIRONMENTAL ALLERGIES: - Substance Allergies None Known - Other Allergies Penicillin NURSING: - Shower allowing shower PRECAUTIONS: - Fall Precaution Bed alarm TABS alarm Wheel chair alarm - Incontinence Bowel Incontinence - DVT Risk due to restricted mobility and obesity - Skin Breakdown Risk due to restricted mobility and age - Cardiac Precaution Monitor blood pressure, heart rate, lower extremity edema, notify MD for shortness of breath or chest pain Monitor patient for excessive elevation of heart rate and blood pressure during therapy Nursing and Therapy to monitor pt before and after therapy sessions for signs of Chest pain - Aspiration Precaution Seated at 90 degrees while eating and 30 minutes after meals ACTIVITIES OOB only with supervision THERAPIES: - Dietary and Nutrition Adequate Nutrition. Nutritional Education. Nutritional Supplements. - Occupational Therapy Cognitive Retraining. Patient needs Occupational Therapy for a daily minimum of 1.5 hours at least 5 out of 7 days, to improve Activities of Daily Living, including: Eating, Grooming, Bathing, Dressing, Toileting, Toilet Transfers, Community Reintegration, Higher functional activities, Adaptive Equipme nt, Splinting, Household Tasks, and Other activities as determined. Visual Perceptual Training. Evalu ate and Treat. UE Strengthening. UE ROM. Safety Awareness. Indep. ADL's- Higher Level Functioning. Pa tient/Family Education. - Speech Therapy Cognitive Training. Expressive Language Skills. Memory Strategies. Patient needs Speech Therapy for a daily minimum of 1.5 hours at least 5 out of 7 days, to improve: Swallowing, Cognition, Language Sk ills, and Compensatory Strategies. Receptive Language Skills. Speech Intelligibility Training. - Physical Therapy Patient needs Physical Therapy for a daily minimum of 1.5 hours at least 5 out of 7 days, to improve: Mobility, Strengthening, Transfers, Stretching, ROM, Endurance, Ability to manage stairs, Gait, and Balance. Safety Awareness. Wheelchair Management. Evaluate and Treat. Patient/Family Education. Modal ities Training. - Functional Scores Obtained on 03/26/2022. PHYSICAL EXAM - Gen Alert and awake Lying in bed No apparent distress Oriented to: person, time, and place - Skin No skin breakdown. No abnormalities - Eyes No abnormalities - ENMT No abnormalities - Neck No abnormalities - CVS RRR - Chest Mildly decreased breath sounds bilaterally. - Resp No wheezing - Abd Obese, soft, nontender - GI nondistended Deferred - No abnormalities - Ext Mild bilateral lower extremity edema. - MSK 4+/5 weakness in both lower extremities. - Neuro No focal deficits ASSESSMENT: Pt. is a 46 yo female.On 03/11/2022 she was admitted to [facility] with diagnosis J 96.01 Chronic Hypoxemic Respiratory Failure.Her impairment category is Medically Complex Conditions 1 7 - Respiratory Disorders - Non-ventilator Dependent (17.52).Pre-morbidly, Pt. was independent/mod-I in Locomotion, Self-Care, and Safety Awareness; and she had good Balance, Transfers Control, and End urance.Currently, she has deficits of Locomotion, Safety Awareness, Balance, Self-Care, and Endurance .Pt. is now referred to [facility] for acute [facility]-patient rehabilitation [facility] to maximize patient's functional independence in activities of daily living, strength, ROM, and mob ility.- Rehab Goal Patient has realistic goal of being discharged at assistance level 7-Ind to reside at Home with Fami ly/Relatives. MDM/PLAN: - Physical Therapy Gait dysfunction - to improve, our physical therapists will perform initial evaluation of pt's statu s upon admission and devise an individualized program for Gait Training, and Wheel Chair mobility Need for home safety evaluation - to improve, our physical therapists will perform initial evaluatio n of pt's status upon admission and devise an individualized program for Home Evaluation Need in caregiver upon discharge - to improve, our physical therapists will perform initial evaluati on of pt's status upon admission and devise an individualized program for Caregiver Training New precaution - to improve, our physical therapists will perform initial evaluation of pt's status upon admission and devise an individualized program for Patient precaution education Edema - to improve, our physical therapists will perform initial evaluation of pt's status upon admi ssion and devise an individualized program for Elevation Training, and Lymphedema Therapy Poor balance - to improve, our physical therapists will perform initial evaluation of pt's status up on admission and devise an individualized program for Balance Training Poor endurance - to improve, our physical therapists will perform initial evaluation of pt's status upon admission and devise an individualized program for Endurance Training Weakness - to improve, our physical therapists will perform initial evaluation of pt's status upon a dmission and devise an individualized program for Aquatic Therapy, Neuromuscular Reeducation, and Str engthening Achieving independence - to improve, our physical therapists will perform initial evaluation of pt's status upon admission and devise an individualized program for Community Reintegration Activities - Occupational Therapy ADL deficits - to improve, our occupation therapists will perform initial evaluation of pt's status upon admission and devise an individualized program for Bathing, Bed mobility, Community Reintegratio n, Cooking, Dressing, Eating, Fine Motor Skills, Grooming, Homemaking, Kitchen Mobility, Laundry, Pat ient Education, Safety Awareness, Splinting - Positioning, Transfers(Toilet, Tub, Shower), and Wheel Chair Management Need for disabilities caregiver - to improve, our occupation therapists will perform initial evaluation of pt's status upon admission and devise an individualized program for Caregiver Training Weakness - to improve, our occupation therapists will perform initial evaluation of pt's status upon admission and devise an individualized program for Aquatic Therapy, Balance, Endurance, UE ROM, and UE strengthening - Other See attached MAR (Medication Administration Record) - Diet Type Continue Low Sodium - Diet - Liquid Texture Continue Thin - Tube Feed Continue N/A - Incontinence Bowel Incontinence - DVT Risk due to restricted mobility and obesity - Skin Breakdown Risk due to restricted mobility and age - Aspiration Precaution Seated at 90 degrees while eating and 30 minutes after meals - Cardiac Precaution Monitor blood pressure, heart rate, lower extremity edema, notify MD for shortness of breath or ches t pain Monitor patient for excessive elevation of heart rate and blood pressure during therapy Nursing and Therapy to monitor pt before and after therapy sessions for signs of Chest pain - Fall Precaution Bed alarm TABS alarm Wheel chair alarm - Diet - Solid Texture Continue Regular Continue Cut-up - Shower allowing shower FUNCTIONAL STATUS: UPDATED AT WEEKLY TEAM CONFERENCE - Bladder Same accident frequency: 7-Ind - No accidents in the past 7 days - Bowel Same accident frequency: 7-Ind - No accidents in the past 7 days - Walking Same score based on distance walked: 0(N/A) - Wheelchair Same score based on distance traveled: 0(N/A) FUNCTIONAL STATUS: - Self-Care A. Eating Ind B. Grooming modA C. Bathing maxA D. Dressing - Upper modA E. Dressing - Lower maxA F. Toileting maxA - Sphincter Control G. Bladder control Ashok H. Bowel control Ashok - Transfers Control I. Bed/Chair/Wheelchair maxA J. Toilet maxA K. Tub/Shower Dep - Locomotion L. Walk/Wheelchair (B) Dep M. Stairs Dep - Communication N. Comprehension (B) Ashok O. Expression (B) Ashok - Social Cognition P. Social Interaction Ind Q. Problem Solving Ind R. Memory Ind - Endurance Poor - Balance Poor - Safety Awareness Fair QI SCORES: - Self-Care A. Eating 88-Not attempted due to medical condition or safety concerns B. Oral hygiene 04-Supervision or touching assistance C. Toileting hygiene 88-Not attempted due to medical condition or safety concerns E. Shower/bathe self 88-Not attempted due to medical condition or safety concerns F. Upper body dressing 03-Partial/moderate assistance G. Lower body dressing 02-Substantial/maximal assistance H. Putting on/taking off footwear 02-Substantial/maximal assistance - Mobility A. Roll left and right 02-Substantial/maximal assistance B. Sit to lying 02-Substantial/maximal assistance C. Lying to sitting on side of bed 02-Substantial/maximal assistance D. Sit to stand 02-Substantial/maximal assistance E. Chair/[id number] transfer 02-Substantial/maximal assistance F. Toilet transfer 88-Not attempted due to medical condition or safety concerns G. Car transfer 88-Not attempted due to medical condition or safety concerns I. Walk 10 feet 88-Not attempted due to medical condition or safety concerns J. Walk 50 feet with two turns 88-Not attempted due to medical condition or safety concerns K. Walk 150 feet 88-Not attempted due to medical condition or safety concerns L. Walking 10 feet on uneven surfaces 88-Not attempted due to medical condition or safety concerns M. 1 step (curb) 88-Not attempted due to medical condition or safety concerns N. 4 steps 88-Not attempted due to medical condition or safety concerns O. 12 steps 88-Not attempted due to medical condition or safety concerns P. Picking up object 88-Not attempted due to medical condition or safety concerns R. Wheel 50 feet with two turns 88-Not attempted due to medical condition or safety concerns S. Wheel 150 feet 88-Not attempted due to medical condition or safety concerns - Bladder and Bowel Bladder continence 9-Not applicable Bowel continence 2-Frequently incontinent - Endurance Poor - Balance Poor - Safety Awareness Poor CURRENT FUNC. DEFICITS: Mobility, Endurance, Balance, Safety Awareness, and Self-Care SIGNATURE PANEL: (CDT)
--- NOTE | 2022-04-18 18:10 | R.DS ---
DISCHARGE SUMMARY FACILITY [facility] MR# [id number] NAME GRAZYNA GOMEZ ADDRESS [address] [place] [address] [address] [id number] PHONE DATE OF 1975 AGE 46 SSN# [id number] GENDER Female DEXTERITY Unknown dexterity MARITAL STATUS Single (Never ) RACE ENCOUNTER PHYSICIAN Dr. Eulogio Garcia M.D. REFERRING DOCTOR Neal Martinez REFERRING FACILITY [facility] DISCHARGE DIAGNOSIS: - Medically Complex Conditions 17 - Respiratory Disorders - Non-ventilator Dependent (17.52) J96.01 Chronic Hypoxemic Respiratory Failure. DISCHARGE COMORBIDITIES: - Tier 3 Morbid (severe) obesity due to excess calories (E66.01) DATE OF ADMISSION 03/29/2022 19:49 (CDT) MEDICATION ALLERGIES: No Known Drug Allergies (NKDA) ENVIRONMENTAL ALLERGIES: - Substance Allergies None Known - Other Allergies Penicillin DISCHARGE MEDICATIONS: Other- ContinueSee attached MAR (Medication Administration Record). NURSING: - Shower allowing shower PRECAUTIONS: - Fall Precaution Bed alarm TABS alarm Wheel chair alarm - Incontinence Bowel Incontinence - DVT Risk due to restricted mobility and obesity - Skin Breakdown Risk due to restricted mobility and age - Cardiac Precaution Monitor blood pressure, heart rate, lower extremity edema, notify MD for shortness of breath or chest pain Monitor patient for excessive elevation of heart rate and blood pressure during therapy Nursing and Therapy to monitor pt before and after therapy sessions for signs of Chest pain - Aspiration Precaution Seated at 90 degrees while eating and 30 minutes after meals ACTIVITIES OOB only with supervision THERAPIES: - Dietary and Nutrition Adequate Nutrition Nutritional Education Nutritional Supplements - Occupational Therapy Cognitive Retraining Patient needs Occupational Therapy for a daily minimum of 1.5 hours at least 5 out of 7 days, to impr ove Activities of Daily Living, including: Eating, Grooming, Bathing, Dressing, Toileting, Toilet Tra nsfers, Community Reintegration, Higher functional activities, Adaptive Equipment, Splinting, Househo ld Tasks, and Other activities as determined Visual Perceptual Training Evaluate and Treat UE Strengthening UE ROM Safety Awareness Indep. ADL's- Higher Level Functioning Patient/Family Education - Speech Therapy Cognitive Training Expressive Language Skills Memory Strategies Patient needs Speech Therapy for a daily minimum of 1.5 hours at least 5 out of 7 days, to improve: Swallowing, Cognition, Language Skills, and Compensatory Strategies Receptive Language Skills Speech Intelligibility Training - Physical Therapy Patient needs Physical Therapy for a daily minimum of 1.5 hours at least 5 out of 7 days, to improve: Mobility, Strengthening, Transfers, Stretching, ROM, Endurance, Ability to manage stairs, Gait, and Balance Safety Awareness Wheelchair Management Evaluate and Treat Patient/Family Education Modalities Training - Functional Scores Obtained on 03/26/2022 HISTORY OF PRESENT ILLNESS: PtSherri is a 46 yo female.On 03/11/2022 she was admitted to [facility] with diagnosis J 96.01 Chronic Hypoxemic Respiratory Failure.Her impairment category is Medically Complex Conditions 1 7 - Respiratory Disorders - Non-ventilator Dependent (17.52).Pre-morbidly, Pt. was independent/mod-I in Locomotion, Self-Care, and Safety Awareness; and she had good Balance, Transfers Control, and End urance.Currently, she has deficits of Locomotion, Safety Awareness, Balance, Self-Care, and Endurance .Pt. is now referred to [facility] for acute in-patient rehabilitation in [facility] to maximize patient's functional independence in activities of daily living, strength, ROM, and mob ility.- Rehab Goal Patient has realistic goal of being discharged at assistance level 7-Ind to reside at Home with Fami ly/Relatives. ASPIRATION PRECAUTION: On 03/27/2022 the following precautions were added for the patient: Aspiration Precaution - Seated at 90 degrees while eating and 30 minutes after meals. On 03/30/2022 the following precautions were added for the patient: Aspiration Precaution - Seated a t 90 degrees while eating and 30 minutes after meals. On 03/31/2022 the following precautions were removed for the patient: Aspiration Precaution - Seated at 90 degrees while eating and 30 minutes after meals. On 04/01/2022 the following precautions were added for the patient: Aspiration Precaution - Seated a t 90 degrees while eating and 30 minutes after meals. On 03/27/2022 the following precautions were removed for the patient: Aspiration Precaution - Seated at 90 degrees while eating and 30 minutes after meals, and Aspiration Precaution - Seated at 90 degr ees while eating and 30 minutes after meals. The following precautions were added for the patient: Cardiac Precaution - Monitor blood pressure, he art rate, lower extremity edema, notify MD for shortness of breath or chest pain, Cardiac Precaution - Monitor patient for excessive elevation of heart rate and blood pressure during therapy, and Cardia c Precaution - Nursing and Therapy to monitor pt before and after therapy sessions for signs of Chest pain. On 03/30/2022 the following precautions were added for the patient: Cardiac Precaution - Monitor blo od pressure, heart rate, lower extremity edema, notify MD for shortness of breath or chest pain, Card iac Precaution - Monitor patient for excessive elevation of heart rate and blood pressure during the rapy, and Cardiac Precaution - Nursing and Therapy to monitor pt before and after therapy sessions f or signs of Chest pain. On 03/31/2022 the following precautions were removed for the patient: Cardiac Precaution - Monitor b lood pressure, heart rate, lower extremity edema, notify MD for shortness of breath or chest pain, Ca rdiac Precaution - Monitor patient for excessive elevation of heart rate and blood pressure during t herapy, and Cardiac Precaution - Nursing and Therapy to monitor pt before and after therapy sessions for signs of Chest pain. On 04/01/2022 the following precautions were added for the patient: Cardiac Precaution - Monitor blo od pressure, heart rate, lower extremity edema, notify MD for shortness of breath or chest pain, Card iac Precaution - Monitor patient for excessive elevation of heart rate and blood pressure during the rapy, and Cardiac Precaution - Nursing and Therapy to monitor pt before and after therapy sessions f or signs of Chest pain. On 03/27/2022 the following precautions were removed for the patient: Cardiac Precaution - Monitor bl ood pressure, heart rate, lower extremity edema, notify MD for shortness of breath or chest pain, Car diac Precaution - Monitor patient for excessive elevation of heart rate and blood pressure during the rapy, Cardiac Precaution - Nursing and Therapy to monitor pt before and after therapy sessions for si gns of Chest pain, Cardiac Precaution - Monitor blood pressure, heart rate, lower extremity edema, n otify MD for shortness of breath or chest pain, Cardiac Precaution - Monitor patient for excessive e levation of heart rate and blood pressure during therapy, and Cardiac Precaution - Nursing and Thera py to monitor pt before and after therapy sessions for signs of Chest pain. The following precautions were added for the patient: DVT Risk - due to restricted mobility and obesi ty. On 03/30/2022 the following precautions were added for the patient: DVT Risk - due to restricted mob ility and obesity. On 03/31/2022 the following precautions were removed for the patient: DVT Risk - due to restricted m obility and obesity. On 04/01/2022 the following precautions were added for the patient: DVT Risk - due to restricted mob ility and obesity. The following precautions were removed for the patient: DVT Risk - due to restricted mobility and obe sity, and DVT Risk - due to restricted mobility and obesity. On 03/27/2022 the following precautions were added for the patient: Fall Precaution - Wheel chair ala rm, Fall Precaution - Bed alarm, and Fall Precaution - TABS alarm. On 03/31/2022 the following precautions were added for the patient: Fall Precaution - Bed alarm, Fal l Precaution - TABS alarm, and Fall Precaution - Wheel chair alarm. On 03/27/2022 the following precautions were removed for the patient: Fall Precaution - Bed alarm, Fa ll Precaution - TABS alarm, Fall Precaution - Wheel chair alarm, Fall Precaution - Bed alarm, Fall P recaution - TABS alarm, and Fall Precaution - Wheel chair alarm. The following precautions were added for the patient: Incontinence - Bowel Incontinence. On 03/30/2022 the following precautions were added for the patient: Incontinence - Bowel Incontinenc e. On 03/31/2022 the following precautions were removed for the patient: Incontinence - Bowel Incontine nce. On 04/01/2022 the following precautions were added for the patient: Incontinence - Bowel Incontinenc e. On 03/27/2022 the following precautions were removed for the patient: Incontinence - Bowel Incontinen ce, and Incontinence - Bowel Incontinence. The following precautions were added for the patient: Skin Breakdown Risk - due to restricted mobilit y and age. On 03/30/2022 the following precautions were added for the patient: Skin Breakdown Risk - due to res tricted mobility and age. On 03/31/2022 the following precautions were removed for the patient: Skin Breakdown Risk - due to r estricted mobility and age. On 04/01/2022 the following precautions were added for the patient: Skin Breakdown Risk - due to res tricted mobility and age. The following precautions were removed for the patient: Skin Breakdown Risk - due to restricted mobil ity and age, and Skin Breakdown Risk - due to restricted mobility and age. CARDIAC PRECAUTION: DVT RISK: DIET - LIQUID TEXTURE: On 03/27/2022 Pt was changed to Thin Diet - Liquid Texture. DIET - SOLID TEXTURE: On 03/27/2022 Pt was changed to Cut-up Diet - Solid Texture. On 03/30/2022 Pt was changed from Cut-up Diet - Solid Texture to Regular. Pt was downgraded from Regular Diet - Solid Texture to Cut-up. On 03/31/2022 Pt was changed from Cut-up Diet - Solid Texture to Regular. On 04/01/2022 Pt was changed from Cut-up Diet - Solid Texture to Regular. On 04/02/2022 Pt was changed from Cut-up Diet - Solid Texture to Regular. On 04/04/2022 Pt was changed from Cut-up Diet - Solid Texture to Regular. On 04/07/2022 Pt was changed from Cut-up Diet - Solid Texture to Regular. On 04/08/2022 Pt was changed from Cut-up Diet - Solid Texture to Regular. On 04/09/2022 Pt was changed from Cut-up Diet - Solid Texture to Regular. On 04/10/2022 Pt was changed from Cut-up Diet - Solid Texture to Regular. On 04/15/2022 Pt was changed from Cut-up Diet - Solid Texture to Regular. DIET TYPE: On 03/27/2022 Pt was changed to Low Sodium Diet Type. FALL PRECAUTION: INCONTINENCE: SKIN BREAKDOWN RISK: TUBE FEED: On 03/27/2022 Pt was changed to N/A Tube Feed. DISCHARGE PHYSICAL EXAM - Gen Alert and awake Lying in bed No apparent distress Oriented to: person, time, and place - Skin No skin breakdown. No abnormalities - Eyes No abnormalities - ENMT No abnormalities - Neck No abnormalities - CVS RRR - Chest Mildly decreased breath sounds bilaterally. - Resp No wheezing - Abd Obese, soft, nontender - GI nondistended Deferred - No abnormalities - Ext Mild bilateral lower extremity edema. - MSK 4+/5 weakness in both lower extremities. - Neuro No focal deficits FUNCTIONAL STATUS: - Self-Care A. Eating 7-Ind B. Grooming 5-sup C. Bathing 4-Yasmin D. Dressing - Upper 4-Yasmin E. Dressing - Lower 3-modA F. Toileting 4-Yasmin - Sphincter Control G. Bladder control 6-Ashok H. Bowel control 6-Ashok - Transfers Control I. Bed/Chair/Wheelchair 4-Yasmin J. Toilet 4-Yasmin K. Tub/Shower 4-Yasmin - Locomotion L. Walk/Wheelchair (B) 4-Yasmin M. Stairs 1-Dep - Communication N. Comprehension (B) 6-Ashok O. Expression (B) 6-Ashok - Social Cognition P. Social Interaction 7-Ind Q. Problem Solving 7-Ind R. Memory 7-Ind - Endurance Fair - Balance Fair - Safety Awareness Good QI SCORES: - Self-Care A. Eating 88-Not attempted due to medical condition or safety concerns B. Oral hygiene 04-Supervision or touching assistance C. Toileting hygiene 88-Not attempted due to medical condition or safety concerns E. Shower/bathe self 88-Not attempted due to medical condition or safety concerns F. Upper body dressing 03-Partial/moderate assistance G. Lower body dressing 02-Substantial/maximal assistance H. Putting on/taking off footwear 02-Substantial/maximal assistance - Mobility A. Roll left and right 02-Substantial/maximal assistance B. Sit to lying 02-Substantial/maximal assistance C. Lying to sitting on side of bed 02-Substantial/maximal assistance D. Sit to stand 02-Substantial/maximal assistance E. Chair/lop-ss-nlqnr transfer 02-Substantial/maximal assistance F. Toilet transfer 88-Not attempted due to medical condition or safety concerns G. Car transfer 88-Not attempted due to medical condition or safety concerns I. Walk 10 feet 88-Not attempted due to medical condition or safety concerns J. Walk 50 feet with two turns 88-Not attempted due to medical condition or safety concerns K. Walk 150 feet 88-Not attempted due to medical condition or safety concerns L. Walking 10 feet on uneven surfaces 88-Not attempted due to medical condition or safety concerns M. 1 step (curb) 88-Not attempted due to medical condition or safety concerns N. 4 steps 88-Not attempted due to medical condition or safety concerns O. 12 steps 88-Not attempted due to medical condition or safety concerns P. Picking up object 88-Not attempted due to medical condition or safety concerns R. Wheel 50 feet with two turns 88-Not attempted due to medical condition or safety concerns S. Wheel 150 feet 88-Not attempted due to medical condition or safety concerns - Bladder and Bowel Bladder continence 9-Not applicable Bowel continence 2-Frequently incontinent - Endurance Poor - Balance Poor - Safety Awareness Poor DISCHARGE INSTRUCTIONS: - N/A Eliquis 5 mg bid. Left ankle x-ray shows large posterior and plantar calcaneal spurs. Abdominal ultra sound shows cholelitiasis without acute cholecystitis. DISCHARGE PLAN, FOLLOW UP CARE PROVISIONS: - Estimated Length of Stay (days) 13. - Consensus on plan Discharge plan has been discussed with primary caregiver. Patient/Family is in agreement with the brad n. Primary caregiver is in agreement with the plan. - Patient/Family Goals Return home independently. - Potential barriers to discharge Any lines must be removed or patient/caregiver needs to be educated on line care. - Planned Living Setting Upon Discharge Home, to live with Family/Relatives. Transitional Living. SIGNATURE PANEL: (CDT)
== END 2022-04-15 15:00 | disposition home health service (06) | DRG 948 ==
LOC: 5TH 03-29 01:21
PROVIDERS: ADMIT Psychiatry & Neurology Neurology with Special Qualifications in Child Neurology; ATTEND Psychiatry & Neurology Neurology with Special Qualifications in Child Neurology
DX: R53.81 Other malaise (principal); Z68.44 Body mass index [BMI] 60.0-69.9, adult; I50.22 Chronic systolic (congestive) heart failure; E66.2 Morbid (severe) obesity with alveolar hypoventilation; I11.0 Hypertensive heart disease with heart failure; I48.91 Unspecified atrial fibrillation; Z88.0 Allergy status to penicillin; Z20.822 Contact with and (suspected) exposure to COVID-19
CPT/HCPCS: 36415; 71045; 76700; 80048; 81003; 81015; 82040; 82947; 83735; 84134; 85025; 87086; 87088; 92526; 92610; 94660; 94760; 97110; 97112; 97116; 97161; 97530; 97542; J1815; U0003

== ENCOUNTER 2022-08-18 10:20 | Inpatient (IN) | payer BC ==
--- OUTSIDE RECORDS SUMMARY | 2022-08-18 10:35 | XMS REPORT | Continuity of Care Document ---
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 [facility] 00:00:00 00:00:00 Black_D [id number] Medica l 2022-05-29 2022-05-29 Outpatient Madeleine Rahman PRIV PRIV [id number] 00:00:00 00:00:00 Rodriguez 39a-11ed-b a5p-69c7jv 0e4b84 2022-05-29 2022-05-29 Outpatient Madeleine Rahman PRIV PRIV [id number] 00:00:00 00:00:00 Michael 39a-11ed-a 65a-12d5cb 0e4b84 2022-05-28 2022-05-28 Outpatient GC_SWHAOMC_ PRIV PRIV [id number] [facility] 11:27:00 11:27:00 Black_D [id number] Medica l 2022-05-15 2022-05-15 Outpatient GC_SWHAOMC_ PRIV PRIV [id number] [facility] 12:43:00 12:43:00 Black_D [id number] Medica l 2022-03-11 2022-03-28 Inpatient ER DUMONT, [facility] [id number] [facility] 00:52:00 23:55:00 EYAD Med 2021-09-10 2021-09-10 Outpatient [facility] [id number] [facility] 00:00:00 00:00:00 [facility] 2021-08-15 2021-08-15 Outpatient [facility] [id number] [facility] 00:00:00 23:59:00 [facility] 2021-07-25 2021-07-25 Outpatient TIM, [facility] [id number] [facility] 00:00:00 00:00:00 [facility] 2021-07-19 2021-07-19 Outpatient FILOMENA, [facility] [id number] [facility] 00:00:00 00:00:00 [facility] 2021-07-11 2021-07-18 Emergency EM Nickolas, HCAPM INTE.02 [id number] [facility] 02:31:00 19:10:00 Oladipo 40 [facility] 2021-07-12 2021-07-12 Outpatient [facility] [id number] [facility] 00:00:00 00:00:00 [facility] 2021-07-11 2021-07-11 Outpatient Vargas, HCACL LABO [id number] [facility] 00:50:00 00:50:00 Ruddy Love [facility] 2021-06-27 2021-06-27 Outpatient APRIL, [facility] [id number] [facility] 00:00:00 00:00:00 [facility] 2021-06-27 2021-06-27 Outpatient ARLENEA [facility] [id number] [facility] 00:00:00 00:00:00 , SARAH [facility] 2021-06-25 2021-06-25 Outpatient FILOMENA, [facility] [id number] [facility] 00:00:00 00:00:00 [facility] 2021-06-24 2021-06-24 Clinical Kiran, [facility] [id number] [facility] 00:00:00 00:00:00 Case Mgt Megan Brewster Augustomazin 2021-06-20 2021-06-20 [facility] [id number] [facility] 16:06:50 17:32:54 ne Carlita Choi [facility] 2021-06-20 2021-06-20 [facility] [id number] [facility] 00:00:00 00:00:00 Only Carlita Choi [facility] 2021-06-20 2021-06-20 Nurse Márquez, [facility] [id number] [facility] 00:00:00 00:00:00 Triage Alejandra Shoemaker Wayne 2021-06-12 2021-06-12 [facility]ic [facility] [id number] [facility] 12:53:21 13:29:09 [facility] 2021-06-12 2021-06-12 [facility] [id number] [facility] 00:00:00 00:00:00 Only [facility] 2021-06-06 2021-06-06 Telemedici [facility] [id number] [facility] 06:15:21 13:54:30 ne [facility] 2021-06-06 2021-06-06 Orders [facility] [id number] [facility] 00:00:00 00:00:00 [facility] 2021-06-04 2021-06-04 [facility] [id number] [facility] 06:29:01 06:29:01 [facility] 2021-05-28 2021-05-28 Danielle Toledo, [facility] [id number] [facility] 00:00:00 00:00:00 Case Mgt Jessie Wayne janelle Naheed 2021-05-28 2021-05-28 Danielle Toledo, [facility] [id number] [facility] 00:00:00 00:00:00 Case Mgt Jessie Wayne h Naheed 2021-05-27 2021-05-27 Danielle Toledo, [facility] [id number] [facility] 00:00:00 00:00:00 Case Mgt Jessie Wayne h Naheed 2021-05-27 2021-05-27 [facility] [id number] [facility] 00:00:00 00:00:00 Case Mgt Jessie Healt h Naheed 2021-05-20 2021-05-25 [facility] Nathalie Torrez [facility] [id number] [facility] 15:31:00 16:57:00 Encounter John Puneet [facility] Lachelle Saunders 2021-05-21 2021-05-21 [facility] [id number] [facility] 07:07:53 07:07:53 [facility] 2021-05-20 2021-05-20 Emergency [facility] [id number] [facility] 15:26:47 15:57:43 [facility] 2021-02-21 2021-02-21 [facility] [id number] [facility] 00:00:00 00:00:00 Case Mgt Jessie Black h Naheed 2021-02-20 2021-02-20 [facility] [id number] [facility] 00:00:00 00:00:00 Case Mgt Jessie Healmazin emerson [facility] 2021-02-11 2021-02-19 [facility] Nicola Murray [facility] [id number] [facility] 15:09:00 14:20:00 Encounter Marbella Allan [facility] 2021-02-14 2021-02-14 [facility] [id number] [facility] 15:05:12 15:05:16 KIMI Black 2021-02-13 2021-02-13 Outpatient NEELAM [facility] [id number] [facility] 12:05:21 12:09:39 MARBELLA Casas 2021-02-11 2021-02-11 Emergency [facility] [id number] [facility] 18:23:09 19:21:38 [facility] 2021-02-11 2021-02-11 Emergency [facility] [id number] [facility] 17:24:22 17:44:35 [facility] 2021-02-11 2021-02-11 Emergency [facility] [id number] [facility] 11:36:00 11:36:00 2020-12-17 2020-12-17 JULIO Gregory [id number] 00:00:00 00:00:00 (Out) Connie O RACKING TECHNICIAN [id number] REGIONAL [id number] MATERNAL [id number] & CHILD 111 [facility] 2020-11-06 2020-11-06 Telephone Kailey [facility] [id number] 00:00:00 00:00:00 Connie O RACKING TECHNICIAN [id number] REGIONAL 4.2.7.2.686 MATERNAL [id number] & CHILD 111 [facility] Results Test Description Test Time Test Comments Results Result Comments Source MAGNESIUM 2022-03-28 06:14:02 Test Item Value Reference Range Interpretation Comme nts MAGNESIUM (BEAKER) (test code = 627) 1.9 mg/dL 1.5-3.0 Site Manager ID - LITOOperator ID - LITOOperator ID - LITOOperator ID - LITOBASIC METABOLIC [id number] 06:13:50 Test Item Value Reference Range Interpretation [...] 1092) DATA TO CALCULA TE ESTIMATED GFR. Site Manager ID - LITOOperator ID - LITOOperator ID - LITOOperator ID - LITOOperator ID - LITOOperator ID - LITOOperator ID - LITOOperator ID - LITOOperator ID - LITOOperator ID - [id number] 06:11:01 Test Item Value Reference Range Interpretation Comments PHOSPHORUS (BEAKER) (test code = 3.4 mg/dL 2.5-4.5 604) Site Manager ID - LITOCBC W/PLT COUNT & AUTO [id number] 05:56:30 Test Item Value Reference Range Interpretation [...] (BEAKER) (test code = 2801) BASIC METABOLIC [id number] 05:29:24 Test Item Value Reference Range Interpretation [...] 1092) DATA TO CALCULA TE ESTIMATED GFR. Site Manager ID - [id number] ID - lznv58Rhantayw ID - mvmo22Chgxamys ID - eokq03Wblupkft ID - swvt14Qhqtcvjz ID - ijee77Ywttllxr ID - zqmf16Sffaoudp ID - tqbi33Gunlvibt ID - xezc75Bzrezafo ID - [id number] 05:29:17 Test Item Value Reference Range Interpretation Comments MAGNESIUM (BEAKER) (test code = 1.9 mg/dL 1.5-3.0 627) Site Manager ID - [id number] ID - zdur74Mwodcptw ID - sfhd57Xyybhvti ID - znmp04 [id number] 05:26:24 Test Item Value Reference Range Interpretation Comments PHOSPHORUS (BEAKER) (test code = 3.5 mg/dL 2.5-4.5 604) Site Manager ID - [id number] W/PLT COUNT & AUTO [id number] 05:09:58 Test Item Value Reference Range Interpretation [...] 417) IMMATURE GRANULOCYTES-RELATIVE 0 % 0-0 PERCENT (BUSTER) (test code = 2801) RAD, CHEST, 1 VIEW, NON [id number] 03:16:00Reason for exam:->f/u pulmonary edema[facility] : 1975 Sex: FFINAL REPORT RAD, CHEST, 1 VIEW, NON DEPT INDICATION: f/u pulmonary edema COMPARISON: Prior day's exam FINDINGS: Portable frontal view of the chest. IMPRESSION: Support Lines: Stable. Lungs and pleura: Unchanged bilateral central hazy airspace and interstitial opacities. No pneumothorax. Heart and mediastinum: Stable contours. Additional findings: None. Signed: [facility] Verified Date/Time: 03/27/2022 03:16:54 [id number] 11:42:31 Test Item Value Reference Range Interpretation Comments POTASSIUM (BUSTER) (test code = 3.3 meq/L 3.6-5.5 L 379) Site Manager ID - DSENSONOperator ID - DSENSONOperator ID - DSENSONOperator ID - DSENSONRAD, CHEST, 1 VIEW, NON [id number] 05:51:00Reason for exam:->RF [facility] : 1975 Sex: FFINAL REPORT RAD, CHEST, 1 VIEW, NON DEPT INDICATION: RF COMPARISON: Prior day's exam FINDINGS: Portable frontal view of the chest. IMPRESSION: Support Lines: Stable. Lungs and pleura: Unchanged venous congestion and bilateral hazy opacities suggestive of edema. No pneumothorax. Heart and mediastinum: Stable contours. Additional findings: None. Signed: Gopal Valenciaeperika Verified Date/Time: 03/26/2022 05:51:15 BASIC METABOLIC [id number] 05:39:26 Test Item Value Reference Range Interpretation [...] 1092) DATA TO CALCULA TE ESTIMATED GFR. Site Manager ID - LITOOperator ID - LITOOperator ID - LITOOperator ID - LITOOperator ID - LITOOperator ID - LITOOperator ID - LITOOperator ID - LITOOperator ID - LITOOperator ID - [id number] 05:33:17 Test Item Value Reference Range Interpretation Comments MAGNESIUM (BEAKER) (test code = 2.2 mg/dL 1.5-3.0 627) Site Manager ID - LITOOperator ID - LITOOperator ID - LITOOperator ID - MICHAEL [id number] 05:30:43 Test Item Value Reference Range Interpretation Comments PHOSPHORUS (BEAKER) (test code = 3.7 mg/dL 2.5-4.5 604) Site Manager ID - LITOCBC W/PLT COUNT & AUTO [id number] 05:27:20 Test Item Value Reference Range Interpretation [...] (BEAKER) (test code = 2801) VANCOMYCIN LEVEL, [id number] 18:00:19 Test Item Value Reference Range Interpretation Comments VANCOMYCIN TROUGH (BEAKER) (test 11.8 ug/mL 10.0-20.0 code = 522) Site Manager ID - [id number] 17:57:47 Test Item Value Reference Range Interpretation Comments POTASSIUM (BEAKER) (test code = 3.4 meq/L 3.6-5.5 L 379) Site Manager ID - [id number] ID - [id number] ID - [id number] ID - [id number]-RYROIJL [id number] 17:47:50 Test Item Value Reference Range Interpretation Comments POC-GLUCOSE METER 91 mg/dL 70-110 : TESTED A T [facility] [address] (BEAKER) (test code = [address]) [facility] [address]: Site Manager/Techni hermes ID = [id number] for Lori Amalia BASIC METABOLIC [id number] 13:18:53 Test Item Value Reference Range Interpretation [...] = 358) GLUCOSE RANDOM 95 mg/dL 70-110 (RANDALAKER) (test code = 652) CALCIUM (BEAKER) 9.1 mg/dL 8.5-10.5 (test code = 697) EGFR (RANDALAKER) (test INSUFFIC IENT CLINICAL code = 1092) DATA TO CALCULA TE ESTIMATED GFR. Site Manager ID - DSENSONOperator ID - DSENSONOperator ID - DSENSONOperator ID - DSENSONOperator ID - DSENSONOperator ID - DSENSONOperator ID - DSENSONOperator ID - DSENSONOperator ID - DSENSONOperator ID - DSENSONOperator ID - DSENSONOperator ID - DSENSONOperator ID - DSENSONPOCT-GLUCOSE [id number] 12:41:27 Test Item Value Reference Range Interpretation Comments POC-GLUCOSE METER 97 mg/dL 70-110 : TESTED A T [facility] 1317 (BUSTER) (test code = [address]) [facility] [address]: Site Manager/Techni hermes ID = [id number] for Amalia Sandoval SARS-COV2/RT-PCR ([facility])2022-03-25 05:25:46 Test Item Value Reference Range Interpretation Comments SARS-COV2/RT-PCR Negative Negative The SARS-Co V-2 target (test code = nucleic acids a re not [id number]) detected in thi s specimen. Negative result [...] This SARS CoV-2 test is a rapid, real-time RT-PC R test intended for th e qualitative detection [...] Food, Drug and Cosmetic Act, 21 U.S.C. 360bbb-3(b)(1), unless the authorization is terminated or revoked sooner. Fact Sheet for Healthcare Providers: https://www.Halldis/Documents/Xpert%20Xpress%20SARS%20CoV-2/Fact%20Sheets/302-3802%12KYYL-CNB-7%20 HEALTHCARE%20PROVIDERS%20FACT%20SHEET.pdf Fact Sheet for Healthcare Patients: https://www.RSens/Documents/Xpert%20Xp ress%20SARS%20CoV-2/Fact%20Sheets/302-3801%84INRX-RQK-0%20PATIENT%20FACT%20SHEET .pdfBASIC METABOLIC [id number] 04:40:47 Test Item Value Reference Range Interpretation [...] 1092) DATA TO CALCULA TE ESTIMATED GFR. Site Manager ID - [id number] ID - [id number] ID - [id number] ID - gzkcfzzbj249Cggenbuv ID - ieeuvknfq271Oilxgweh ID - vzgjlqjjp077Rxuwnigf ID - ratcsqxla075Xxbglgpb ID - khonlaajn321Qztnhldt ID - igkhvhmox251Lruhywqh ID - [id number] 04:40:18 Test Item Value Reference Range Interpretation Comments MAGNESIUM (BEAKER) (test code = 2.2 mg/dL 1.5-3.0 627) Site Manager ID - [id number] ID - [id number] ID - ecxeyynqv208Iblldzsp ID - [id number] 04:37:39 Test Item Value Reference Range Interpretation Comments PHOSPHORUS (BEAKER) (test code = 4.1 mg/dL 2.5-4.5 604) Site Manager ID - [id number] W/PLT COUNT & AUTO [id number] 04:25:04 Test Item Value Reference Range Interpretation [...] = 2801) RAD, CHEST, 1 VIEW, NON [id number] 03:45:00Reason for exam:->RF [facility] : 1975 Sex: FFINAL REPORT CLINICAL INDICATION: RF Comparison: 03/24/2022 The cardiomediastinal contours are stable. The lung volumes are stable after extubation. Central pulmonary vascular congestion andbilateral parenchymal and pleural opacities are unchanged. There is no pneumothorax. A right IJ CVC r emains in place. Signed: Sunshine Zambrano Verified Date/Time: 03/25/2022 03:45:57 -GLUCOSE [id number] 00:03:05 Test Item Value Reference Range Interpretation Comments POC-GLUCOSE METER 83 mg/dL 70-110 : Notified RN/MD: TESTED (BEAKER) (test code = AT [facility] [address] [facility] [address]: Site Manager/Techni hermes ID = [id number] for Latia Clark BASIC METABOLIC [id number] 22:31:52 Test Item Value Reference Range Interpretation [...] 1092) DATA TO CALCULA TE ESTIMATED GFR. Site Manager ID - [id number] ID - [id number] ID - [id number] ID - [id number] ID - [id number] ID - [id number] ID - [id number] ID - [id number] ID - [id number] ID - [id number] ID - [id number] ID - [id number] ID - [id number] METABOLIC [id number] 15:34:59 Test Item Value Reference Range Interpretation [...] 1092) DATA TO CALCULA TE ESTIMATED GFR. Site Manager ID - DSENSONOperator ID - DSENSONOperator ID - DSENSONOperator ID - DSENSONOperator ID - DSENSONOperator ID - DSENSONOperator ID - DSENSONOperator ID - DSENSONOperator ID - DSENSONOperator ID - DSENSONOperator ID - DSENSONOperator ID - DSENSONOperator ID - [id number] ID - [id number] GAS, [id number] 13:09:46 Test Item Value Reference Range Interpretation [...] (test code = 1819) 50.0 VANCOMYCIN LEVEL, [id number] 05:27:09 Test Item Value Reference Range Interpretation Comments VANCOMYCIN TROUGH (BEAKER) (test 21.2 ug/mL 10.0-20.0 H code = 522) Site Manager ID - [id number] METABOLIC [id number] 05:10:41 Test Item Value Reference Range Interpretation [...] 1092) DATA TO CALCULA TE ESTIMATED GFR. Site Manager ID - JUSTINOperator ID - JUSTINOperator ID - JUSTINOperator ID - JUSTINOperator ID - JUSTINOperator ID - JUSTINOperator ID - JUSTINOperator ID - JUSTINOperator ID - JUSTINOperator ID - JUSTINOperator ID - JUSTINMAGNESIUM 2022-03-24 04:50:15 Test Item Value Reference Range Interpretation Comments MAGNESIUM (BEAKER) (test code = 2.3 mg/dL 1.5-3.0 627) Site Manager ID - JUSTINOperator ID - JUSTINOperator ID - JUSTINOperator ID - ROBERTO [id number] 04:47:29 Test Item Value Reference Range Interpretation Comments PHOSPHORUS (BEAKER) (test code = 4.1 mg/dL 2.5-4.5 604) Site Manager ID - JUSTINBLOOD GAS, [id number] 04:32:46 Test Item Value Reference Range Interpretation [...] 1819) 50.0 CBC W/PLT COUNT & AUTO [id number] 04:22:57 Test Item Value Reference Range Interpretation [...] = 2801) RAD, CHEST, 1 VIEW, NON [id number] 03:23:00Reason for exam:->[facility] 1975 Sex: FFINAL REPORT CLINICAL INDICATION: RF Comparison: 03/23/2022 The cardiomediastinal contours are stable. The lung volumes remain low. Central pulmonary vascular congestion and bilateral parenchymal and pleural opacities are unchanged. There is no pneumothorax. Support lines are stable. Signed: Sunshine Zambranoeport Verified Date/Time: 03/24/2022 03:23:14 POCT-GLUCOSE METER 2022-03-24 00:06:41 Test Item Value Reference Range Interpretation Comments POC-GLUCOSE METER 91 mg/dL 70-110 : TESTED A T [facility] [address] (BEAKER) (test code = [address]) [facility] [address]: Site Manager/Techni hermes ID = [id number] for Sylvia brewsterWilliam BASIC METABOLIC [id number] 21:56:46 Test Item Value Reference Range Interpretation [...] 1092) DATA TO CALCULA TE ESTIMATED GFR. Site Manager ID - ONYINYEOperator ID - ONYINYEOperator ID - ONYINYEOperator ID - ONYINYEOperator ID - ONYINYEOperator ID - ONYINYEOperator ID - ONYINYEOperator ID - ONYINYEOperator ID - ONYINYEOperator ID - ONYINYEOperator ID - ONYINYEOperator ID - ONYINYEOperator ID - ONYINYEBASIC METABOLIC [id number] 13:21:30 Test Item Value Reference Range Interpretation [...] 1092) DATA TO CALCULA TE ESTIMATED GFR. Site Manager ID - [id number] ID - [id number] ID - [id number] ID - [id number] ID - BZLVNNKSO659Lznmuhbx ID - FOSGHKMHG362Zcohebvn ID - XBWUHSXFG526Iozvbhde ID - BTUOJPUYC336Ggssljws ID - XQGPXZBUE021Sdxflmkt ID - EAHUGQGHD940Toliqxyo ID - IVCFCAOYR721Hligzntk ID - JXPWLFZPP604Ugtqczcg ID - LBSOWWDRS539GIOZ-RFRAKBR [id number] 13:12:47 Test Item Value Reference Range Interpretation Comments POC-GLUCOSE METER 101 mg/dL 70-110 : TESTED A T [facility] 1317 (BEAKER) (test code [address], = 1538) [facility] [address]: Site Manager/Techni hermes ID = [id number] for Joshua Stringer RAD, CHEST, 1 VIEW, NON [id number] 05:58:00Reason for exam:->RF [facility] : 1975 Sex: FFINAL REPORT RAD, CHEST, 1 VIEW, NON DEPT INDICATION: RF COMPARISON: Prior day's exam FINDINGS: Portable frontal view of the chest. IMPRESSION: Support Lines: Central catheter tip overliesthe SVC. NG tube descends below the diaphragm. Lungs and pleura: Increased bilateral airspace opacities concerning for multifocal pneumonia versus multifocal edema. Lungs remain hypoinflated. No significant pneumothorax. Heart and mediastinum: Stable contours. Stable surgical changes. Additional findings: None. Signed: Connie Clark Verified Date/Time: 03/23/2022 05:58:32 BLOOD GAS, [id number] 04:45:33 Test Item Value Reference Range Interpretation [...] (test code = 1819) 50.0 BASIC METABOLIC [id number] 04:26:01 Test Item Value Reference Range Interpretation [...] 1092) DATA TO CALCULA TE ESTIMATED GFR. Site Manager ID - [id number] ID - [id number] ID - [id number] ID - TWFBRDVFI545Gmfnrfsp ID - TMBXCTACP412Cxyodtrc ID - BJSXRNXCR055Haaibsho ID - AZJYQTRHF593Fmiaopbc ID - LDSDTRDFT342Hhgofwdc ID - GUOTZTXCD531Mhcjkxqp ID - [id number] 04:25:02 Test Item Value Reference Range Interpretation Comments MAGNESIUM (BEAKER) (test code = 2.5 mg/dL 1.5-3.0 627) Site Manager ID - [id number] ID - PIZYXLCPV117Hrvynouw ID - ZCAGDEHKW630Hsihtnax ID - [id number] W/PLT COUNT & AUTO DIFFERENTIAL 2022-03-23 04:24:18 [...] 0-0 PERCENT (BEAKER) (test code = 2801) [id number] 04:22:17 Test Item Value Reference Range Interpretation Comments PHOSPHORUS (BEAKER) (test code = 3.2 mg/dL 2.5-4.5 604) Site Manager ID - [id number] METABOLIC [id number] 00:32:12 Test Item Value Reference Range Interpretation [...] 1092) DATA TO CALCULA TE ESTIMATED GFR. Site Manager ID - [id number] ID - [id number] ID - [id number] ID - [id number] ID - [id number] ID - [id number] ID - [id number] ID - [id number] ID - MJBCWLDWG399Iheyohuw ID - DQZHFARNH112Btaxnvtm ID - [id number] ID - FPVAVJOWR086Agybxggs ID - [id number]-FIVGSFV [id number] 00:07:29 Test Item Value Reference Range Interpretation Comments POC-GLUCOSE METER 85 mg/dL 70-110 : TESTED A T [facility] 1317 (BEAKER) (test code = [place] [address], 1538) [facility] 77 478: Site Manager/Techni hermes ID = [id number] for Yvette inIsaiah BASIC METABOLIC [id number] 20:24:19 Test Item Value Reference Range Interpretation [...] 1092) DATA TO CALCULA TE ESTIMATED GFR. Site Manager ID - ONYINYEOperator ID - ONYINYEOperator ID - ONYINYEOperator ID - ONYINYEOperator ID - ONYINYEOperator ID - ONYINYEOperator ID - ONYINYEOperator ID - ONYINYEOperator ID - ONYINYEOperator ID - ONYINYEOperator ID - ONYINYEOperator ID - ONYINYEOperator ID - ONYINYEPOCT-GLUCOSE [id number] 17:53:17 Test Item Value Reference Range Interpretation Comments POC-GLUCOSE METER 139 mg/dL 70-110 H : Notified RN/MD: TESTED (BEAKER) (test code AT [address] = 1538) [facility] [id number]: Site Manager/Techni hermes ID = [id number] for Ritesh h, Lorita BLOOD [id number] 16:01:30 Test Item Value Reference Range Interpretation Comments CULTURE (BEAKER) (test No growth in 5 days code = 1095) BLOOD [id number] 16:01:30 Test Item Value Reference Range Interpretation Comments CULTURE (BEAKER) (test No growth in 5 days code = 1095) BASIC METABOLIC [id number] 12:55:36 Test Item Value Reference Range Interpretation [...] 1092) DATA TO CALCULA TE ESTIMATED GFR. Site Manager ID - [id number] ID - bylp38Fqnwlweh ID - htec54Etcchxpo ID - bfxp68Jhuaqxsd ID - fenv32Meanneeg ID - ylqd44Sjzhuhfl ID - wgza65Mkiqwhrw ID - jruu31Zkzjwogt ID - rvbr95Vjdibykg ID - tvwt13Qykfeawo ID - yshh28Xwqqexie ID - bqcv24Mliauofl ID - juij94EVTY-EBWXXGO [id number] 11:53:31 Test Item Value Reference Range Interpretation Comments POC-GLUCOSE METER 136 mg/dL 70-110 H : Notified RN/MD: TESTED (BEAKER) (test code AT [place] [address] [address] = 1538) [place] [address]: Site Manager/Techni hermes ID = [id number] for Ritesh h, Lorita BLOOD GAS, [id number] 08:57:41 Test Item Value Reference Range Interpretation [...] 1819) 50.0 RAD, CHEST, 1 VIEW, NON [id number] 07:36:00Reason for exam:->[facility] 1975 Sex: FFINAL REPORT RAD, CHEST, 1 VIEW, NON DEPT INDICATION: RF COMPARISON: Prior day's exam FINDINGS: Portable frontal view of the chest. IMPRESSION: Support Lines: ET tube tip is 3 cm superior to trae. NG tube descends below the diaphragm. Right-sided central catheter tip overlies the atriocaval junction. Lungs and pleura: Mild bibasilar atelectasis. No significant pneumothorax. Heart and mediastinum: Stable contours. Additional findings: None. Signed: Connie Clark MDReport Verified Date/Time: 03/22/2022 07:36:27 OMYCIN LEVEL, [id number] 04:46:31 Test Item Value Reference Range Interpretation Comments VANCOMYCIN TROUGH (BEAKER) (test 18.9 ug/mL 10.0-20.0 code = 522) Site Manager ID - [id number] METABOLIC [id number] 04:23:09 Test Item Value Reference Range Interpretation [...] 1092) DATA TO CALCULA TE ESTIMATED GFR. Site Manager ID - [id number] ID - kmei34Vpsgcjeb ID - wypx98Okczwuht ID - mksp98Howntpgo ID - udck05Zhtrzonp ID - ukyk16Fusrvxzk ID - gahn54Eycffjdi ID - egik27Mdczgwqe ID - wjgt00Kvwbkcjw ID - [id number] 03:27:50 Test Item Value Reference Range Interpretation Comments MAGNESIUM (BEAKER) (test code = 2.4 mg/dL 1.5-3.0 627) Site Manager ID - nhxf39Hkpjiylo ID - kfzv64Blgykblf ID - pzng26Mwxppxkf ID - [id number] [id number] 03:25:04 Test Item Value Reference Range Interpretation Comments PHOSPHORUS (BEAKER) (test code = 3.8 mg/dL 2.5-4.5 604) Site Manager ID - [id number] W/PLT COUNT & AUTO [id number] 03:15:24 Test Item Value Reference Range Interpretation [...] PERCENT (BEAKER) (test code = 2801) POCT-GLUCOSE [id number] 23:56:22 Test Item Value Reference Range Interpretation Comments POC-GLUCOSE METER 85 mg/dL 70-110 : TESTED A T [address] (BEAKER) (test code = [address], 1538) [facility] [address]: Site Manager/Techni hermes ID = [id number] for William Navarro BASIC METABOLIC [id number] 21:16:18 Test Item Value Reference Range Interpretation [...] 1092) DATA TO CALCULA TE ESTIMATED GFR. Site Manager ID - [id number] ID - [id number] ID - [id number] ID - [id number] ID - [id number] ID - [id number] ID - [id number] ID - [id number] ID - [id number] ID - [id number] 21:15:16 Test Item Value Reference Range Interpretation Comments MAGNESIUM (BEAKER) (test code = 2.3 mg/dL 1.5-3.0 627) Site Manager ID - [id number] ID - [id number] ID - [id number] ID - [id number] 21:12:33 Test Item Value Reference Range Interpretation Comments PHOSPHORUS (BEAKER) (test code = 4.0 mg/dL 2.5-4.5 604) Site Manager ID - [id number]-IKPXGIP [id number] 17:37:55 Test Item Value Reference Range Interpretation Comments POC-GLUCOSE METER 118 mg/dL 70-110 H : TESTED A T [address] (BEAKER) (test code [address], = 1538) [facility] [address]: Site Manager/Techni hermes ID = [id number] for Amalia Sandoval BASIC METABOLIC [id number] 14:20:49 Test Item Value Reference Range Interpretation [...] 1092) DATA TO CALCULA TE ESTIMATED GFR. Site Manager ID - LITOOperator ID - LITOOperator ID - LITOOperator ID - LITOOperator ID - LITOOperator ID - LITOOperator ID - LITOOperator ID - LITOOperator ID - LITOOperator ID - [id number] 14:04:46 Test Item Value Reference Range Interpretation Comments MAGNESIUM (BEAKER) (test code = 2.3 mg/dL 1.5-3.0 627) Site Manager ID - LITOOperator ID - LITOOperator ID - LITOOperator ID - MICHAEL [id number] 14:02:12 Test Item Value Reference Range Interpretation Comments PHOSPHORUS (BEAKER) (test code = 4.0 mg/dL 2.5-4.5 604) Site Manager ID - LITOPOCT-GLUCOSE [id number] 13:56:14 Test Item Value Reference Range Interpretation Comments POC-GLUCOSE METER 117 mg/dL 70-110 H : TESTED A T [address] (BEAKER) (test code [address], = 1538) [facility] [address]: Site Manager/Techni hermes ID = [id number] for Joshua Stringer BLOOD GAS, [id number] 11:02:30 Test Item Value Reference Range Interpretation [...] (test code = 1819) 50.0 BASIC METABOLIC [id number] 05:10:48 Test Item Value Reference Range Interpretation [...] 1092) DATA TO CALCULA TE ESTIMATED GFR. Site Manager ID - LITOOperator ID - LITOOperator ID - LITOOperator ID - LITOOperator ID - LITOOperator ID - LITOOperator ID - LITOOperator ID - LITOOperator ID - LITOOperator ID - [id number] 04:56:26 Test Item Value Reference Range Interpretation Comments MAGNESIUM (BEAKER) (test code = 3.0 mg/dL 1.5-3.0 627) Site Manager ID - LITOOperator ID - LITOOperator ID - LITOOperator ID - LITOCBC W/PLT COUNT & AUTO [id number] 04:55:03 Test Item Value Reference Range Interpretation [...] H PERCENT (BEAKER) (test code = 2801) [id number] 04:53:42 Test Item Value Reference Range Interpretation Comments PHOSPHORUS (BEAKER) (test code = 4.8 mg/dL 2.5-4.5 H 604) Site Manager ID - LITOBLOOD GAS, [id number] 03:20:23 Test Item Value Reference Range Interpretation [...] 1819) 50.0 RAD, CHEST, 1 VIEW, NON [id number] 01:28:00Reason for exam:[facility] 1975 Sex: FFINAL REPORT RAD, CHEST, 1 VIEW, NON DEPT INDICATION: RF COMPARISON: Prior day's exam FINDINGS: Portable frontal view of the chest. IMPRESSION: Small portion of the lung bases are not included within the ybvdd-nx-vmge limiting evaluation. Support Lines: Stable. Lungs and pleura: No significant change in bilateral airspace and pleural opacities. No pneumothorax. Heart and mediastinum: Stable contours. Additional findings: None. Signed: Gopal Valenciaeport Verified Date/Time: :28:56 POCT-GLUCOSE [id number] 19:21:26 Test Item Value Reference Range Interpretation Comments POC-GLUCOSE METER 117 mg/dL 70-110 H : TESTED A T [address] (BEAKER) (test code [address], = 1538) [place] [id number]: Site Manager/Techni hermes ID = [id number] for Gaud et, Andria [id number] 13:31:04 Test Item Value Reference Range Interpretation Comments POTASSIUM (BEAKER) (test code = 3.6 meq/L 3.6-5.5 379) Site Manager ID - DSENSONOperator ID - DSENSONOperator ID - DSENSONOperator ID - DSENSONPOCT-GLUCOSE [id number] 12:19:14 Test Item Value Reference Range Interpretation Comments POC-GLUCOSE METER 119 mg/dL 70-110 H : TESTED A T [address] (BEAKER) (test code [address], = 1538) [place] [id number]: Site Manager/Techni hermes ID = [id number] for Gaud et, Andria SPUTUM CULTURE + GRAM [id number] 11:37:40 Test Item Value Reference Interpretation Comments [...] 1+ epithelial (BEAKER) (test code = cells 074025) 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 Site Manager ID - [id number] ID - [id number] ID - IGQW20Crcwtina ID - WTPD06Qiltvcyc ID - UWHA93Jubopeha ID - AKAV80Hjpvaqhy ID - RPRA42Mvbzptrs ID - ANHH04Xwcrbkjd ID - ZWNM94Ttynmuts ID - [id number] 04:51:56 Test Item Value Reference Range Interpretation Comments MAGNESIUM (BEAKER) (test code = 2.5 mg/dL 1.5-3.0 627) Site Manager ID - YVFV74Yjfqyglu ID - NWXL32Zmfsfgiw ID - PCPW52Fhgixkfb ID - [id number] [id number] 04:49:14 Test Item Value Reference Range Interpretation Comments PHOSPHORUS (BEAKER) (test code = 5.2 mg/dL 2.5-4.5 H 604) Site Manager ID - [id number] W/PLT COUNT & AUTO [id number] 04:47:50 Test Item Value Reference Range Interpretation [...] (BEAKER) (test code = 2801) BLOOD GAS, [id number] 03:25:36 Test Item Value Reference Range Interpretation [...] 1819) 50.0 RAD, CHEST, 1 VIEW, NON [id number] 02:39:00Reason for exam:->RF [facility] : 1975 Sex: FFINAL REPORT RAD, CHEST, 1 VIEW, NON DEPT INDICATION: RF COMPARISON: Prior day's exam FINDINGS: Portable frontal view of the chest. IMPRESSION: Support Lines: Stable. Lungs and pleura: Unchanged bilateral airspace opacities. No new airspace consolidation or sizable effusion. No pneumothorax. Heart and mediastinum: Stable contours. Additional findings: None. Signed: Gopal Valencia Verified Date/Time: 03/20/2022 02:39:09 POCT-GLUCOSE [id number] 23:33:17 Test Item Value Reference Range Interpretation Comments POC-GLUCOSE METER 102 mg/dL 70-110 : TESTED A T [address] (BEAKER) (test code [address], = 1538) [place] [id number]: Site Manager/Techni hermes ID = [id number] for Katelin Bueno BLOOD GAS, [id number] 12:43:30 Test Item Value Reference Range Interpretation [...] (BEAKER) (test code = 1819) 50.0 POCT-GLUCOSE [id number] 12:30:27 Test Item Value Reference Range Interpretation Comments POC-GLUCOSE METER 122 mg/dL 70-110 H : TESTED A T [address] (BEAKER) (test code [address], = 1538) [place] [id number]: Site Manager/Techni hermes ID = [id number] for Joshua Stringer RAD, CHEST, 1 VIEW, NON [id number] 07:57:00Reason for exam:->RF [facility] : 1975 Sex: FFINAL REPORT Chest AP portable semierect Comparison exam: 03/18/2022 History provided: Respiratory failure Tube positions unchanged. Heart size magnified by projection. Airspace opacity predominating in the right lower lobe shows no significant change. Signed: Ryland Pierce VerifiedDate/Time: 03/19/2022 07:57:08 Reading Location: [facility] Radiology Reading Room POCT-GLUCOSE [id number] 06:49:16 Test Item Value Reference Range Interpretation Comments POC-GLUCOSE METER 112 mg/dL 70-110 H : TESTED A T [facility] [address] (BEAKER) (test code [address], = 1538) [facility] [address]: Site Manager/Techni hermes ID = [id number] for Katelin Bueno BLOOD GAS, [id number] 06:19:32 Test Item Value Reference Range Interpretation [...] (test code = 1819) 50.0 BASIC METABOLIC [id number] 03:44:06 Test Item Value Reference Range Interpretation [...] 1092) DATA TO CALCULA TE ESTIMATED GFR. Site Manager ID - LITOOperator ID - LITOOperator ID - LITOOperator ID - LITOOperator ID - LITOOperator ID - LITOOperator ID - LITOOperator ID - LITOOperator ID - LITOOperator ID - [id number] 03:41:45 Test Item Value Reference Range Interpretation Comments MAGNESIUM (BEAKER) (test code = 2.2 mg/dL 1.5-3.0 627) Site Manager ID - LITOOperator ID - LITOOperator ID - LITOOperator ID - MICHAEL [id number] 03:39:08 Test Item Value Reference Range Interpretation Comments PHOSPHORUS (BEAKER) (test code = 3.4 mg/dL 2.5-4.5 604) Site Manager ID - LITOCBC W/PLT COUNT & AUTO [id number] 03:30:16 Test Item Value Reference Range Interpretation [...] PERCENT (BEAKER) (test code = 2801) POCT-GLUCOSE [id number] 00:52:42 Test Item Value Reference Range Interpretation Comments POC-GLUCOSE METER 110 mg/dL 70-110 : TESTED A T [address] (BEAKER) ([facility], = 1538) [place] [id number]: Site Manager/Techni hermes ID = [id number] for Katelin Bueno POCT-GLUCOSE [id number] 17:35:56 Test Item Value Reference Range Interpretation Comments POC-GLUCOSE METER 110 mg/dL 70-110 : TESTED A T [address] (BEAKER) (test code [address] [facility], = 1538) [place] [id number]: Site Manager/Techni hermes ID = [id number] for HENRY OLSONMI [id number] 12:56:11 Test Item Value Reference Range Interpretation Comments POTASSIUM (BUSTER) (test code = 4.0 meq/L 3.6-5.5 379) Site Manager ID - DSENSONOperator ID - DSENSONOperator ID - DSENSONOperator ID - DSENSONPOCT-GLUCOSE [id number] 12:42:14 Test Item Value Reference Range Interpretation Comments POC-GLUCOSE METER 122 mg/dL 70-110 H : TESTED A T [address] (BUSTER) (test code [address], = 1538) [facility] [place] [address]: Site Manager/Techni hermes ID = [id number] for MATTHIAS OLSON RAD, CHEST, 1 VIEW, NON [id number] 09:14:00Reason for exam:->RF [facility] : 1975 Sex: FFINAL REPORT Exam: RAD, CHEST, 1 VIEW, NON DEPTDate: 03/18/2022 9:11 AM Indication:Respiratory failureComparison: 03/17/2022 FINDINGS: Lines/Tubes/Devices: Overlying EKG leads. Enteric tube inplace seen coursing below the diaphragm with the distal tip collimated out of view. Right IJ CVC in place with distal tip projecting over the SVC. Endotracheal tube in place with distal tip measuring 2.1 cm above the trae. Lungs/pleura:Lungs are well inflated. Perihilar predominant airspace opacities, left greater than right. Small left effusion. No pneumothorax. Heart/Mediastinum:Grossly unchanged. Bones/Soft Tissues: No acute osseous abnormality. Upper abdomen: Unremarkable. IMPRESSION:Lines andtubes as above.Perihilar predominant airspace opacities, left greater than right, may represent worsening edema and/or infectious process in appropriate clinical setting.Small left-sided effusion. Signed: Harley Gentile Verified Date/Time: 03/18/2022 09:14:44 Reading Location: [facility] RadiologyReading Room SARS-COV2/RT-PCR ([facility])2022-03-18 09:12:55 Test Item Value Reference Range Interpretation Comments SARS-COV2/RT-PCR Negative Negative The SARS-Co V-2 target (test code = nucleic acids a re not 5385586) detected in thi s specimen. Negative result [...] This SARS CoV-2 test is a rapid, real-time RT-PC R test intended for th e qualitative detection [...] Food, Drug and Cosmetic Act, 21 U.S.C. 360bbb-3(b)(1), unless the authorization is terminated or revoked sooner. Fact Sheet for Healthcare Providers: https://www.[employer] [facility] m/Documents/Xpert%20Xpress%20SARS%20CoV-2/Fact%20Sheets/302-0543%91ALPG-JLN-2%20 HEALTHCARE%20PROVIDERS%20FACT%20SHEET.pdf Fact Sheet for Healthcare Patients: https://www.RSens/Documents/Xpert%20Xp ress%20SARS%20CoV-2/Fact%20Sheets/302-3801%66JKGV-KMH-5%20PATIENT%20FACT%20SHEET .pdfBLOOD GAS, [id number] 06:45:25 Test Item Value Reference Range Interpretation [...] (test code = 1819) 50.0 BASIC METABOLIC [id number] 04:10:00 Test Item Value Reference Range Interpretation [...] 1092) DATA TO CALCULA TE ESTIMATED GFR. Site Manager ID - [id number] ID - khykyohdj919Hweddlkj ID - kpiwvjrqr842Lihuwlzr ID - yqjgftayy092Oskahpjd ID - jdvevyynn119Eccjedkb ID - mkjatqduj444Sezaoavi ID - qdewsbwej780Uwlpljrg ID - xpdknnocz096Ppmjvhjf ID - moxjcgehy016Dncuhozy ID - [id number] 04:09:51 Test Item Value Reference Range Interpretation Comments MAGNESIUM (BEAKER) (test code = 2.0 mg/dL 1.5-3.0 627) Site Manager ID - [id number] ID - hcybghnly183Sxrakowe ID - omoqzvpsn173Dyvilled ID - [id number] 04:06:49 Test Item Value Reference Range Interpretation Comments PHOSPHORUS (BEAKER) (test code = 3.8 mg/dL 2.5-4.5 604) Site Manager ID - nzsmuybqc603CGG W/PLT COUNT & AUTO [id number] 03:57:39 Test Item Value Reference Range Interpretation [...] PERCENT (BEAKER) (test code = 2801) POCT-GLUCOSE [id number] 00:49:04 Test Item Value Reference Range Interpretation Comments POC-GLUCOSE METER 103 mg/dL 70-110 : TESTED A T [facility] [address] (BEAKER) (test [facility] [address], = 1538) [facility] [address]: Site Manager/Techni hermes ID = [id number] for Divina Can [id number] 00:01:42 Test Item Value Reference Range Interpretation Comments POTASSIUM (BEAKER) (test code = 3.5 meq/L 3.6-5.5 L 379) Site Manager ID - [id number] ID - inhebfszq077Qrbtvgch ID - footmercw199Qvzmriuy ID - occoycxle875WQUYHLRXE1656-05-41 20:10:40 Test Item Value Reference Range Interpretation Comments POTASSIUM (BEAKER) (test code = 3.3 meq/L 3.6-5.5 L 379) Site Manager ID - JAQUELYNNEOperator ID - JAQUELYNNEOperator ID - JAQUELYNNEOperator ID - JAQUELYNNEPOCT-GLUCOSE [id number] 17:58:09 Test Item Value Reference Range Interpretation Comments POC-GLUCOSE METER 104 mg/dL 70-110 : TESTED A T [facility] [address] (BEAKER) (test code [address], = 1538) [facility] [address]: Site Manager/Techni hermes ID = [id number] for CATHRYN OLSONAKEMI POCT-GLUCOSE [id number] 13:37:00 Test Item Value Reference Range Interpretation Comments POC-GLUCOSE METER 121 mg/dL 70-110 H : TESTED A T [facility] [address] (BEAKER) (test code [address], = 1538) [facility] [address]: Site Manager/Techni hermes ID = [id number] for USMAN HOGAN FOLAKEMI [id number] 09:41:39 Test Item Value Reference Range Interpretation Comments POTASSIUM (BERODNEY) (test code = 3.2 meq/L 3.6-5.5 L 379) Site Manager ID - DSENSONOperator ID - DSENSONOperator ID - DSENSONOperator ID - DSENSONRAD, CHEST, 1 VIEW, NON [id number] 07:27:00Reason for exam:->RF [facility] : 1975 Sex: FFINAL REPORT Chest AP portable Comparison exam: 03/16/2022 History provided: Respiratoryfailure Tube positions unchanged. Heart size magnified by projection and poor inspiration. Airspace opacity persists in the right lower lobe. Left lung relatively clear. Signed: Ryland Pierce Verified Date/Time: 03/17/2022 07:27:55 Reading Location: [facility] Radiology Reading Room BASIC METABOLIC [id number] 04:56:25 Test Item Value Reference Range Interpretation [...] 1092) DATA TO CALCULA TE ESTIMATED GFR. Site Manager ID - LITOOperator ID - LITOOperator ID - LITOOperator ID - LITOOperator ID - LITOOperator ID - LITOOperator ID - LITOOperator ID - LITOOperator ID - LITOOperator ID - [id number] 04:37:34 Test Item Value Reference Range Interpretation Comments MAGNESIUM (BEAKER) (test code = 4.0 mg/dL 1.5-3.0 H 627) Site Manager ID - LITOOperator ID - LITOOperator ID - LITOOperator ID - MICHAEL [id number] 04:34:32 Test Item Value Reference Range Interpretation Comments PHOSPHORUS (BEAKER) (test code = 2.6 mg/dL 2.5-4.5 604) Site Manager ID - LITOCBC W/PLT COUNT & AUTO [id number] 04:31:08 Test Item Value Reference Range Interpretation [...] (BEAKER) (test code = 2801) BLOOD GAS, [id number] 03:42:14 Test Item Value Reference Range Interpretation [...] FIO2 (BEAKER) (test code = 1819) 45.0 [id number] 00:50:58 Test Item Value Reference Range Interpretation Comments POTASSIUM (BEAKER) (test code = 3.4 meq/L 3.6-5.5 L 379) Site Manager ID - LITOOperator ID - LITOOperator ID - LITOOperator ID - LITOPOCT- GLUCOSE [id number] 23:47:04 Test Item Value Reference Range Interpretation Comments POC-GLUCOSE METER 99 mg/dL 70-110 : TESTED A T [facility] [address] (BEAKER) (test code = [address], 1538) [place] [id number]: Site Manager/Techni hermes ID = [id number] for Hosea Duran [id number] 19:40:32 Test Item Value Reference Range Interpretation Comments POTASSIUM (BEAKER) (test code = 3.4 meq/L 3.6-5.5 L 379) Site Manager ID - [id number] ID - XVOF01Wtnoduks ID - XTCM80Ylqfryum ID - [id number] POCT-GLUCOSE [id number] 17:48:16 Test Item Value Reference Range Interpretation Comments POC-GLUCOSE METER 116 mg/dL 70-110 H : TESTED A T [address] (BEAKER) (test code [address], = 1538) [place] [id number]: Site Manager/Techni hermes ID = [id number] for Lori Amalia BASIC METABOLIC [id number] 15:13:18 Test Item Value Reference Range Interpretation [...] 1092) DATA TO CALCULA TE ESTIMATED GFR. Site Manager ID - [id number] ID - [id number] ID - VMFYR765Klghtray ID - VWMVP969Nxjfycae ID - ILXBT829Xgqrgyuu ID - JQHAU227Sdfchowc ID - IEVII184Ibqqkxks ID - EKDUH190Rogthwtd ID - KCBKN238Idtaxkta ID - JPFBC234Kvxlmrjs ID - IIYTG814Ygbszpvm ID - TMSAH738Ashujgcy ID - KAFAP508MLQJ- GLUCOSE [id number] 11:45:59 Test Item Value Reference Range Interpretation Comments POC-GLUCOSE METER 132 mg/dL 70-110 H : TESTED A T [facility] [address] (BEAKER) (test code [address], = 1538) [facility] [address]: Site Manager/Techni hermes ID = [id number] for Ali, Amalia RAD, CHEST, 1 VIEW, NON [id number] 05:56:00Reason for exam:->RF [facility] : 1975 Sex: FFINAL REPORT Chest, one view. HISTORY: RF COMPARISON: Radiograph from yesterday IMPRESSION: Evaluation is suboptimal due to motion artifact. The endotracheal tube is approximately 0.9 cm above the trae, consider retraction by 1 to 2 cm. The right IJ central venous catheter has its tip over the mid SVC. A NG tube courses below the diaphragm. Small left pleural effusion. The hazy opacities in the lungs are concerning for pulmonary edema but could also be due to infection. The cardiac silhouette is unchanged in size. No acute bone abnormality. Signed: Kapil Harris MDReport Verified Date/Time: 03/16/2022 05:56:16 BASIC METABOLIC [id number] 04:12:35 Test Item Value Reference Range Interpretation [...] 1092) DATA TO CALCULA TE ESTIMATED GFR. Site Manager ID - NSUVAGIYAOperator ID - NSUVAGIYAOperator ID - NSUVAGIYAOperator ID - NSUVAGIYAOperatorID - NSUVAGIYAOperator ID - NSUVAGIYAOperator ID - NSUVAGIYAOperator ID - NSUVAGIYAOperator ID - NSUVAGIYAOperator ID - NSUVAGIYA [id number] 04:09:01 Test Item Value Reference Range Interpretation Comments MAGNESIUM (BEAKER) (test code = 2.0 mg/dL 1.5-3.0 627) Site Manager ID - NSUVAGIYAOperator ID - NSUVAGIYAOperator ID - NSUVAGIYAOperator ID - [id number] 04:06:03 Test Item Value Reference Range Interpretation Comments PHOSPHORUS (BEAKER) (test code = 3.2 mg/dL 2.5-4.5 604) Site Manager ID - NSUVAGIYACBC W/PLT COUNT & AUTO [id number] 03:50:46 Test Item Value Reference Range Interpretation [...] (BEAKER) (test code = 2801) BLOOD GAS, [id number] 03:41:57 Test Item Value Reference Range Interpretation [...] (BEAKER) (test code = 1819) 50.0 POCT-GLUCOSE [id number] 00:06:52 Test Item Value Reference Range Interpretation Comments POC-GLUCOSE METER 118 mg/dL 70-110 H : TESTED A T [facility] 1317 (BEAKER) (test code [facility] [address] = [address]) [facility] 77 478: Site Manager/Techni hermes ID = [id number] for Divina Can [id number] 19:29:00 Test Item Value Reference Range Interpretation Comments POTASSIUM (BEAKER) (test code = 3.5 meq/L 3.6-5.5 L 379) Site Manager ID - [id number] ID - [id number] ID - [id number] ID - [id number] 17:40:34 Test Item Value Reference Range Interpretation Comments POC-GLUCOSE METER 129 mg/dL 70-110 H : TESTED A T [address] 1317 (BEAKER) (test code [address], = 1538) [facility] 77 478: Site Manager/Techni hermes ID = [id number] for Ilda Downing se [id number] 14:36:37 Test Item Value Reference Range Interpretation Comments POTASSIUM (BEAKER) (test code = 3.3 meq/L 3.6-5.5 L 379) Site Manager ID - JAQUELYNNEOperator ID - JAQUELYNNEOperator ID - JAQUELYNNEOperator ID - JAQUELYNNEPOCT-GLUCOSE [id number] 11:47:29 Test Item Value Reference Range Interpretation Comments POC-GLUCOSE METER 122 mg/dL 70-110 H : TESTED A T [address]17 (BEAKER) (test code [address], = 1538) [place] [id number]: Site Manager/Techni hermes ID = [id number] for Joshua Stringer RAD, CHEST, 1 VIEW, NON [id number] 08:00:00Reason for exam:->RF [facility] : 1975 Sex: FFINAL REPORT RAD, CHEST, 1 VIEW, NON DEPT INDICATION: RF COMPARISON: Prior day's exam FINDINGS: Portable frontal view of the chest. IMPRESSION: Support Lines: ET tube tip is 2 cm superior to the trae. NG tube descends below the diaphragm. Lungs and pleura: Bilateral lower lobe airspace disease is unchanged. No significant pneumothorax. Heart and mediastinum: Stable contours. Additionalfindings: None. Signed: Connie Clark MDReport Verified Date/Time: 03/15/2022 08:00:08 BASIC METABOLIC [id number] 04:55:21 Test Item Value Reference Range Interpretation [...] 1092) DATA TO CALCULA TE ESTIMATED GFR. Site Manager ID - LITOOperator ID - LITOOperator ID - LITOOperator ID - LITOOperator ID - LITOOperator ID - LITOOperator ID - LITOOperator ID - LITOOperator ID - LITOOperator ID - [id number] 04:40:03 Test Item Value Reference Range Interpretation Comments MAGNESIUM (BEAKER) (test code = 2.1 mg/dL 1.5-3.0 627) Site Manager ID - LITOOperator ID - LITOOperator ID - LITOOperator ID - MICHAEL [id number] 04:37:23 Test Item Value Reference Range Interpretation Comments PHOSPHORUS (BEAKER) (test code = 3.2 mg/dL 2.5-4.5 604) Site Manager ID - LITOCBC W/PLT COUNT & AUTO [id number] 04:26:36 Test Item Value Reference Range Interpretation [...] (BEAKER) (test code = 2801) BLOOD GAS, [id number] 04:23:07 Test Item Value Reference Range Interpretation [...] (BEAKER) (test code = 1819) 60.0 POCT-GLUCOSE [id number] 00:27:40 Test Item Value Reference Range Interpretation Comments POC-GLUCOSE METER 107 mg/dL 70-110 : TESTED A T SLSL 1317 (BEAKER) (test [facility], = 1538) [place] [id number]: Site Manager/Techni hermes ID = [id number] for Viktor Navarroda POCT-GLUCOSE [id number] 17:30:39 Test Item Value Reference Range Interpretation Comments POC-GLUCOSE METER 115 mg/dL 70-110 H : TESTED A T [address] 1317 (BEAKER) (test code [address], = 1538) [place] [id number]: Site Manager/Techni hermes ID = [id number] for Ali, Amalia POCT-GLUCOSE [id number] 12:14:29 Test Item Value Reference Range Interpretation Comments POC-GLUCOSE METER 120 mg/dL 70-110 H : TESTED A T [address]17 (BEAKER) (test code [address], = 1538) [place] [address]: Site Manager/Techni hermes ID = [id number] for Ali, Amalia RAD, CHEST, 1 VIEW, NON [id number] 08:51:00Reason for exam:->RF [facility] : 1975 Sex: FFINAL REPORT Chest AP portable Comparison exam: 03/13/2022 History provided: Respiratoryfailure ET tube, NG tube, and right jugular line in place. Airspace disease predominating in the right lung persists. No pneumothorax. Signed: Ryland Pierce Verified Date/Time: 03/14/2022 08:51:09 Reading Location: [facility] Diagnostic Imaging Reading Room [place] [address] BASIC METABOLIC [id number] 05:01:15 Test Item Value Reference Range Interpretation [...] 1092) DATA TO CALCULA TE ESTIMATED GFR. Site Manager ID - LITOOperator ID - LITOOperator ID - LITOOperator ID - LITOOperator ID - LITOOperator ID - LITOOperator ID - LITOOperator ID - LITOOperator ID - LITOOperator ID - LITOBLOOD GAS, [id number] 04:59:07 Test Item Value Reference Range Interpretation [...] FIO2 (BEAKER) (test code = 1819) 50.0 [id number] 04:27:26 Test Item Value Reference Range Interpretation Comments MAGNESIUM (BEAKER) (test code = 1.9 mg/dL 1.5-3.0 627) Site Manager ID - LITOOperator ID - LITOOperator ID - LITOOperator ID - MICHAEL [id number] 04:24:46 Test Item Value Reference Range Interpretation Comments PHOSPHORUS (BEAKER) (test code = 3.2 mg/dL 2.5-4.5 604) Site Manager ID - LITOCBC W/PLT COUNT & AUTO [id number] 04:06:29 Test Item Value Reference Range Interpretation [...] PERCENT (BEAKER) (test code = 2801) POCT-GLUCOSE [id number] 23:59:39 Test Item Value Reference Range Interpretation Comments POC-GLUCOSE METER 115 mg/dL 70-110 H : TESTED A T [facility] 1317 (BEAKER) (test [facility] [address], = 1538) [place] [address]: Site Manager/Techni hermes ID = [id number] for Divina Can POCT-GLUCOSE [id number] 17:59:37 Test Item Value Reference Range Interpretation Comments POC-GLUCOSE METER 121 mg/dL 70-110 H : TESTED A T [facility] 1317 (BEAKER) (test code [address], = 1538) [facility] 77 478: Site Manager/Techni hermes ID = [id number] for Andria Jacobs POCT-GLUCOSE [id number] 12:57:25 Test Item Value Reference Range Interpretation Comments POC-GLUCOSE METER 104 mg/dL 70-110 : TESTED A T [facility] [address]17 (BEAKER) (test code [address], = 1538) [place] [address]: Site Manager/Techni hermes ID = [id number] for Jana Matos RAD, CHEST, 1 VIEW, NON [id number] 07:20:00Reason for exam:->RF [facility] : 1975 Sex: FFINAL REPORT Chest AP portable Comparison exam: 03/12/2022 History provided: Respiratoryfailure ET tube, NG tube, and right jugular line remain in place. Bibasilar opacity consistent with atelectasis, pleural effusions and/or pneumonia not excluded. Quality of exam compromised by morbid obesity. Signed: Ryland Pierceeport Verified Date/Time: 03/13/2022 07:20:56 Reading Location: [facility] Reading Room BASIC METABOLIC [id number] 05:52:46 Test Item Value Reference Range Interpretation [...] 1092) DATA TO CALCULA TE ESTIMATED GFR. Site Manager ID - NSUVAGIYAOperator ID - NSUVAGIYAOperator ID - NSUVAGIYAOperator ID - NSUVAGIYAOperatorID - NSUVAGIYAOperator ID - NSUVAGIYAOperator ID - NSUVAGIYAOperator ID - NSUVAGIYAOperator ID - NSUVAGIYAOperator ID - NSUVAGIYA HEPATIC FUNCTION [id number] 05:46:53 Test Item Value Reference Range Interpretation [...] (test code = 8 U/L 5-50 347) Site Manager ID - NSUVAGIYAOperator ID - NSUVAGIYAOperator ID - NSUVAGIYAOperator ID - NSUVAGIYAOperatorID - NSUVAGIYAOperator ID - NSUVAGIYAOperator ID - NSUVAGIYA [id number] 05:46:53 Test Item Value Reference Range Interpretation Comments MAGNESIUM (BEAKER) (test code = 2.0 mg/dL 1.5-3.0 627) Site Manager ID - NSUVAGIYAOperator ID - NSUVAGIYAOperator ID - NSUVAGIYAOperator ID - [id number] 05:43:31 Test Item Value Reference Range Interpretation Comments PHOSPHORUS (BEAKER) (test code = 4.9 mg/dL 2.5-4.5 H 604) Site Manager ID - NSUVAGIYACBC W/PLT COUNT & AUTO [id number] 05:22:47 Test Item Value Reference Range Interpretation [...] (BEAKER) (test code = 2801) BLOOD GAS, [id number] 04:40:41 Test Item Value Reference Range Interpretation [...] FIO2 (BEAKER) (test code = 1819) 40.0 [id number] 02:20:25 Test Item Value Reference Range Interpretation Comments PARTIAL THROMBOPLASTIN 34.1 seconds 23.0-35.0 Final Information TIME (BEAKER) (test (Auto Ou tput) code = 760) POCT-GLUCOSE [id number] 00:56:56 Test Item Value Reference Range Interpretation Comments POC-GLUCOSE METER 118 mg/dL 70-110 H : TESTED A T [facility] 1317 (BEAKER) (test code [address], = 1538) [facility] 77 478: Site Manager/Techni hermes ID = [id number] for Obac hi, Maddy [id number] 17:58:41 Test Item Value Reference Range Interpretation Comments PARTIAL THROMBOPLASTIN 34.5 seconds 23.0-35.0 Final Information TIME (BEAKER) (test (Auto Ou tput) code = 760) POCT-GLUCOSE [id number] 11:18:19 Test Item Value Reference Range Interpretation Comments POC-GLUCOSE METER 83 mg/dL 70-110 : TESTED A T [facility] 1317 (BEAKER) (test code = [address], 1538) [facility] 77 478: Site Manager/Techni hermes ID = [id number] for John Doe [id number] 10:51:56 Test Item Value Reference Range Interpretation Comments PARTIAL THROMBOPLASTIN 32.4 seconds 23.0-35.0 Final Information TIME (BEAKER) (test (Auto Ou tput) code = 760) RAD, CHEST, 1 VIEW, NON [id number] 07:28:00Reason for exam:->RF [facility] : 1975 Sex: FFINAL REPORT Chest AP portable semierect Comparison exam: 03/11/2022 History provided: Respiratory failure ET tube and NG tube remain in place. Radiograph is limited by morbid obesity. Moderate right pleural effusion. Bibasilar atelectasis. Signed: Ryland Pierceort Verified Date/Time: 03/12/2022 07:28:53 Reading Location: [facility] Radiology Reading Room BLOOD GAS, [id number] 06:01:09 Test Item Value Reference Range Interpretation [...] (test code = 1819) 50.0 BASIC METABOLIC [id number] 04:50:52 Test Item Value Reference Range Interpretation [...] 1092) DATA TO CALCULA TE ESTIMATED GFR. Site Manager ID - [id number] ID - yqah94Olehohwk ID - rrvj24Yudeljgy ID - mjsq21Koeawykp ID - aeko45Cfouyyec ID - rvhp64Ldvedjlk ID - mkte78Jtjihugm ID - lmgq25Dcercmka ID - tlhe10Ogiwhegb ID - sifx80Qkaivfjm slightly ictericHEPATIC FUNCTION [id number] 04:50:46 Test Item Value Reference Range Interpretation [...] (test code = 9 U/L 5-50 347) Site Manager ID - cqti60Yinknmhi ID - wlew46Zilbykwa ID - ghhw36Attipvqq ID - uxrq60Wjjftsij ID - incd16Wgeculqx ID - tojk09Tlpgmuwc ID - lony56Rykphwkx slightly [id number] 04:48:18 Test Item Value Reference Range Interpretation Comments MAGNESIUM (BEAKER) (test code = 1.8 mg/dL 1.5-3.0 627) Site Manager ID - [id number] ID - stnx82Gijbnvic ID - dapr06Xdpybbuf ID - znmp04 [id number] 04:44:57 Test Item Value Reference Range Interpretation Comments PHOSPHORUS (BEAKER) (test code = 3.1 mg/dL 2.5-4.5 604) Site Manager ID - [id number] W/PLT COUNT & AUTO [id number] 04:34:14 Test Item Value Reference Range Interpretation [...] 0-0 PERCENT (BEAKER) (test code = 2801) [id number] 02:15:40 Test Item Value Reference Range Interpretation Comments PARTIAL THROMBOPLASTIN 32.0 seconds 23.0-35.0 Final Information TIME (BEAKER) (test (Auto Ou tput) code = 760) [id number] 17:24:06 Test Item Value Reference Range Interpretation Comments PARTIAL THROMBOPLASTIN 29.1 seconds 23.0-35.0 Final Information TIME (BEAKER) (test (Auto Ou tput) code = 760) POCT-GLUCOSE [id number] 17:18:38 Test Item Value Reference Range Interpretation Comments POC-GLUCOSE METER 76 mg/dL 70-110 : Notified RN/MD: TESTED (BEAKER) (test code = AT [facility] L [address]) [facility] [address]: Site Manager/Techni hermes ID = [id number] for Sanju Smith TROPONIN [id number] 12:43:41 Test Item Value Reference Range Interpretation Comments TROPONIN I (BUSTER) (test code = 0.04 ng/mL 0.00-0.15 397) [...] failure, acidosis, acute neurological disease, and persistent tachyarrhythmia.Site Manager ID - [id number] METER 2022-03-11 11:55:43 Test Item Value Reference Range Interpretation Comments POC-GLUCOSE METER 60 mg/dL 70-110 L : Notified RN/MD: TESTED (BUSTER) (test code = AT [facility] L [address]) [place] [id number]: Site Manager/Techni hermes ID = [id number] for Sanju Smith RAD, CHEST, 1 VIEW, NON [id number] 10:13:00Reason for exam:->s/p Rt IJ cvc [facility] : 1975 Sex: FFINAL REPORT Chest, 1 view, 03/11/2022 9:29 AM. History: Right IJ central line placement. Comparison: X-ray from earlier today. Discussion: Evaluation is extremely limited due to motion artifact. The right IJ central catheter is barely visible, likely terminating in the region of the SVC. There is no evidence of large pneumothorax. The cardiac silhouette and lungs are unchanged. The soft tissues and osseous structures are intact. IMPRESSION: Limited exam, no gross evidence of complication. Signed: Renny Samano MDReport Verified Date/Time: 03/11/2022 10:13:25 Reading Location: [place] [address] Angio Body Reading Room ALYSIS W/ REFLEX URINE [id number] 10:06:46 Test Item Value Reference Range Interpretation [...] code = 1663) SOURCE(BEAKER) (test code = 5695) HCG, SERUM, [id number] 06:08:53 Test Item Value Reference Range Interpretation Comments TEST SERUM (BEAKER) (test Negative code = 584) CBC W/PLT COUNT & AUTO [id number] 05:55:16 Test Item Value Reference Range Interpretation [...] (test code = 2801) TSH/FREE T4 IF [id number] 05:49:32 Test Item Value Reference Range Interpretation Comments THYROID STIMULATING HORMONE 3.330 uIU/mL 0.350-5.500 (BEAKER) (test code = 772) Site Manager ID - LITOBASIC METABOLIC [id number] 05:45:36 Test Item Value Reference Range Interpretation [...] 1092) DATA TO CALCULA TE ESTIMATED GFR. Site Manager ID - LITOOperator ID - LITOOperator ID - LITOOperator ID - LITOOperator ID - LITOOperator ID - LITOOperator ID - LITOOperator ID - LITOOperator ID - LITOOperator ID - LITOHEPATIC FUNCTION [id number] 05:41:27 Test Item Value Reference Range Interpretation [...] (test code = 12 U/L 5-50 347) Site Manager ID - LITOOperator ID - LITOOperator ID - LITOOperator ID - LITOOperator ID - LITOOperator ID - LITOOperator ID - LITOTROPONIN [id number] 05:41:26 Test Item Value Reference Range Interpretation [...] failure, acidosis, acute neurological disease, and persistent tachyarrhythmia.Site Manager ID - [id number] 05:41:10 Test Item Value Reference Range Interpretation Comments MAGNESIUM (BEAKER) (test code = 1.8 mg/dL 1.5-3.0 627) Site Manager ID - LITOOperator ID - LITOOperator ID - LITOOperator ID - MICHAEL PROTHROMBIN TIME/[id number] 05:40:48 Test Item Value Reference Range Interpretation Comments PROTIME (RANDALAKER) 13.0 seconds 9.3-12.0 H Final Infor mation (test code = 759) (Auto Outp ut) INR (BEAKER) (test 1.20 See_Comment Final Inf ormation code = 370) (Auto Output) [Automated mess age] The system [employer] generated this result transmitted ref erence range: <=5.90. The reference range was not used to int erpret this result as normal/abnormal . RECOMMENDED COUMADIN/WARFARIN INR THERAPY RANGESSTANDARD DOSE: 2.0 - 3.0 Includes: PROPHYLAXIS for venous thrombosis, systemic embolization; TREATMENT for venous thrombosis and/or pulmonary embolus.HIGH RISK: Target INR is 2.5-3.5 for patients with mechanical heart valves.[id number] 05:38:10 Test Item Value Reference Range Interpretation Comments PHOSPHORUS (BEAKER) (test code = 3.4 mg/dL 2.5-4.5 604) Site Manager ID - LITOLACTIC ACID, [id number] 05:27:00 Test Item Value Reference Range Interpretation Comments LACTATE BLOOD 1.35 mmol/L See_Comment Specimen sligh tly VENOUS (2) (BEAKER) hemolyze d [Automated (test code = 2872) message] The system which generated this result transmit sandy reference range : 0.50-<2.00. The reference range was not used to interpr et this result as normal/abnormal . Site Manager ID - LITOOperator ID - LITOOperator ID - LITOOperator ID - LITORAD, CHEST, 1 VIEW, NON [id number] 04:08:00Reason for exam:->CHFShould this be performed at the bedside?->Yes [facility] : 1975 Sex: FFINAL REPORT RAD, CHEST, 1 VIEW, NON DEPT INDICATION: CHF COMPARISON: Prior day's exam FINDINGS: Portable frontal view of the chest. IMPRESSION: Examination is significantly limited by body habitus and suboptimal beam penetration.Support Lines: Enteric tube descends towards the stomach with the tip not well seen. Endotracheal tube is also not well seen and appears to terminate within themid thoracic trachea although the trae is obscured by overlying soft tissues. Lungs and pleura: Patchy hazy airspace opacities bilaterally compatible with edema and there are small bilateral pleural e ffusions. No pneumothorax. Heart and mediastinum: Cardiomediastinal silhouette is enlarged compatible with cardiomegaly or pericardial effusion. Additional findings: None. Signed: Gopal Valencia MDReportVerified Date/Time: 03/11/2022 04:08:35 RAD, ABDOMEN/KUB 1 VIEW [id number] 04:03:00Reason for exam:->NGTShould this be performed at the bedside?->Yes [facility] : 1975 Sex: FFINAL REPORT EXAM/TECHNIQUE: RAD, ABDOMEN/KUB 1 VIEW AP INDICATION: Gastric tube. COMPARISON: None. FINDINGS: Gastric tube and sidehole terminate in the expected location of the stomach. Impression: Gastric tube and sidehole terminate in the expected location of the stomach. Signed: Ed Guerrero MDReport Verified Date/Time: 03/11/2022 04:03:12 HEMOGLOBIN [id number] 03:42:05 Test Item Value Reference Range Interpretation Comments HEMOGLOBIN A1C (BEAKER) (test code = 5.3 % 4.3-6.1 368) Site Manager ID - LITOB-TYPE NATRIURETIC FACTOR (BNP)2022-03-11 02:25:07 Test Item Value Reference Range Interpretation Comments B-TYPE NATRIURETIC PEPTIDE (BEAKER) 127 pg/mL 0-100 H (test code = 700) Site Manager ID - LITOTROPONIN [id number] 02:24:29 Test Item Value Reference Range Interpretation [...] failure, acidosis, acute neurological disease, and persistent tachyarrhythmia.Site Manager ID - LITOCBC W/PLT COUNT & AUTO [id number] 02:23:05 Test Item Value Reference Range Interpretation [...] (BEAKER) (test code = 2801) BLOOD GAS, [id number] 02:21:36 Test Item Value Reference Range Interpretation [...] (BEAKER) (test code = 1819) 60.0 POCT-GLUCOSE [id number] 01:51:10 Test Item Value Reference Range Interpretation Comments POC-GLUCOSE METER 88 mg/dL 70-110 : TESTED A T [facility] [address]17 (BEAKER) (test code = [address] 15[address]) [facility] [address]: Site Manager/Techni hermes ID = [id number] for Garc ia, Roberta - XR CHEST 1 [id number] 17:09:00 [facility] : 1975 Sex: F Name: GRAZYNA JACOB [facility] : 1975 Age/S: 46 / F [id number] [place] Unit #: [id number] Loc: [place] [address] Phys: Darryl Haney MD Acct: [id number] Dis Date: Status: ADM IN PHONE #: [phone] Exam Date: 07/17/2021 1640 FAX #: Reason: SOB EXAMS: CPT: [id number] XR CHEST 1 V 29252 Fluo ro Time: DAP (Gy m2): Air Kerma (mGy): [...] change. at 1709 Reported and signed by: Blaine Gill M.D. CC: Darryl Haney MD; Juani MCGOWAN PAGE 1 Signed Report Name: [facility]RAZY[facility]OB [facility] : 1975 Age/S: 46 / F [address] [place] Unit #: [id number] Loc: [place] [address] Phys: Darryl Haney MD Acct: [id number] Dis Date: Status: ADM IN PHONE #: [phone] Exam Date: 07/17/2021 1640 FAX #: Reason: SOB EXAMS: CPT: [id number] XR CHEST 1 V 95992 Fluoro Time: DAP (Gy m2): Air Kerma (mGy): (Continued) Technologist: Antonella Walker, RT(R) Trnscb Date/Time: 07/17/2021 (170) HoracioR.RH16 Orig Print D/T: S: 07/17/2021 (6171) PAGE 2 Signed ReportPROTHROMBIN [id number] 06:48:00 Test Item Value Reference Range Interpretation Comments PT PATIENT (test 18.5 SECONDS 9.3-12.9 H code = PTP) INTERNATIONAL NORMAL 1.64 INR Unit 0.8-1.2 H TARGE T INR BY RATIO (test code = INDICATIO N Indication INR) INR1. Prophylax is of venous thrombos is 2.0 - 3.0 (orthoped ic surgery), Proph ylaxis of venous throm bosis (other than hig h-risk surgery), Treat ment of Deep Vein Thrombosis/Pulm onary Embolism, Preve ntion of systemic emb olism - Tissue heart va lves, Acute Myocardia l Infarction (to prevent systemic emboli sm), Valvular heart disease, Acute Myocardial Infa rction (to prevent sys temic embolism), Valv ular heart disease, Atrial Fibrillation, Bileaflet mecha nical valve in aortic position.2. Mec hanical prosthetic valv es (high risk), 2. 5 - 3.5 Presence of Lup us Anticoagulant o r Antiphospholipi d Antibodies, Pre vention of systemic emb olism - Acute Myocardia l Infarction (to prevent recurrent infar ct). PROTHROMBIN [id number] 11:32:00 Test Item Value Reference Range Interpretation Comments PT PATIENT (test 17.2 SECONDS 9.3-12.9 H code = PTP) INTERNATIONAL NORMAL 1.52 INR Unit 0.8-1.2 H TARGE T INR BY RATIO (test code = INDICATIO N Indication INR) INR1. Prophylax is of venous thrombos is 2.0 - 3.0 (orthoped ic surgery), Proph ylaxis of venous throm bosis (other than hig h-risk surgery), Treat ment of Deep Vein Thrombosis/Pulm onary Embolism, Preve ntion of systemic emb olism - Tissue heart va lves, Acute Myocardia l Infarction (to prevent systemic emboli sm), Valvular heart disease, Acute Myocardial Infa rction (to prevent sys temic embolism), Valv ular heart disease, Atrial Fibrillation, Bileaflet mecha nical valve in aortic position.2. Mec hanical prosthetic valv es (high risk), 2. 5 - 3.5 Presence of Lup us Anticoagulant o r Antiphospholipi d Antibodies, Pre vention of systemic emb olism - Acute Myocardia l Infarction (to prevent recurrent infar ct). PROTHROMBIN [id number] 18:18:00 Test Item Value Reference Range Interpretation Comments PT PATIENT (test 17.6 SECONDS 9.3-12.9 H code = PTP) INTERNATIONAL NORMAL 1.56 INR Unit 0.8-1.2 H TARGE T INR BY RATIO (test code = INDICATIO N Indication INR) INR1. Prophylax is of venous thrombos is 2.0 - 3.0 (orthoped ic surgery), Proph ylaxis of venous throm bosis (other than hig h-risk surgery), Treat ment of Deep Vein Thrombosis/Pulm onary Embolism, Preve ntion of systemic emb olism - Tissue heart va lves, Acute Myocardia l Infarction (to prevent systemic emboli sm), Valvular heart disease, Acute Myocardial Infa rction (to prevent sys temic embolism), Valv ular heart disease, Atrial Fibrillation, Bileaflet mecha nical valve in aortic position.2. Mec hanical prosthetic valv es (high risk), 2. 5 - 3.5 Presence of Lup us Anticoagulant o r Antiphospholipi d Antibodies, Pre vention of systemic emb olism - Acute Myocardia l Infarction (to prevent recurrent infar ct). CBC W/AUTO [id number] 14:36:00 Test Item Value Reference Range Interpretation [...] code NO DIFF/SCN CRITERIA = MDIFF) RBC [id number] 14:36:00 Test Item Value Reference Range Interpretation Comments HYPOCHROMIA (test code = HYPO) 2+ ON SCAN NONE A POIKILOCYTOSIS (test code = POIK) 2+ ON SCAN NONE A ANISOCYTOSIS (test code = ANISO) 3+ NONE A MICROCYTOSIS (test code = MICR) 3+ ON SCAN NONE A ROULEAUX (test code = ROU) 1+ ON SCAN NONE A CBC W/AUTO [id number] 14:35:00 Test Item Value Reference Range Interpretation [...] NO DIFF/SCN CRITERIA = MDIFF) CBC W/AUTO [id number] 14:35:00 Test Item Value Reference Range Interpretation [...] NO DIFF/SCN CRITERIA = MDIFF) CBC W/AUTO [id number] 13:53:00 Test Item Value Reference Range Interpretation [...] code = DIFF/SCN CRITERIA MDIFF) BASIC METABOLIC [id number] 13:51:00 Test Item Value Reference Range Interpretation [...] code = CA) 8.8 MG/DL 8.5-10.1 N [id number] 13:51:00 Test Item Value Reference Range Interpretation Comments MAGNESIUM (test code = MAG) 2.1 MG/DL 1.8-2.4 N GLUCOSE BEDSIDE [id number] 13:20:00 Test Item Value Reference Range Interpretation Comments GLUCOSE BEDSIDE TESTING (test code 110 mg/dL 70-110 N = GLUBED) PROTHROMBIN [id number] 06:00:00 Test Item Value Reference Range Interpretation Comments PT PATIENT (test 14.8 SECONDS 9.3-12.9 H code = PTP) INTERNATIONAL NORMAL 1.31 INR Unit 0.8-1.2 H TARGE T INR BY RATIO (test code = INDICATIO N Indication INR) INR1. Prophylax is of venous thrombos is 2.0 - 3.0 (orthoped ic surgery), Proph ylaxis of venous throm bosis (other than hig h-risk surgery), Treat ment of Deep Vein Thrombosis/Pulm onary Embolism, Preve ntion of systemic emb olism - Tissue heart va lves, Acute Myocardia l Infarction (to prevent systemic emboli sm), Valvular heart disease, Acute Myocardial Infa rction (to prevent sys temic embolism), Valv ular heart disease, Atrial Fibrillation, Bileaflet mecha nical valve in aortic position.2. Mec hanical prosthetic valv es (high risk), 2. 5 - 3.5 Presence of Lup us Anticoagulant o r Antiphospholipi d Antibodies, Pre vention of systemic emb olism - Acute Myocardia l Infarction (to prevent recurrent infar ct). VANCOMYCIN [id number] 21:30:00 Test Item Value Reference Range Interpretation Comments VANCOMYCIN TROUGH (test code = 25.2 mcG/ML 10-20 H VANCT) PROTHROMBIN [id number] 06:22:00 Test Item Value Reference Range Interpretation Comments PT PATIENT (test 16.5 SECONDS 9.3-12.9 H code = PTP) INTERNATIONAL NORMAL 1.46 INR Unit 0.8-1.2 H TARGE T INR BY RATIO (test code = INDICATIO N Indication INR) INR1. Prophylax is of venous thrombos is 2.0 - 3.0 (orthoped ic surgery), Proph ylaxis of venous throm bosis (other than hig h-risk surgery), Treat ment of Deep Vein Thrombosis/Pulm onary Embolism, Preve ntion of systemic emb olism - Tissue heart va lves, Acute Myocardia l Infarction (to prevent systemic emboli sm), Valvular heart disease, Acute Myocardial Infa rction (to prevent sys temic embolism), Valv ular heart disease, Atrial Fibrillation, Bileaflet mecha nical valve in aortic position.2. Mec hanical prosthetic valv es (high risk), 2. 5 - 3.5 Presence of Lup us Anticoagulant o r Antiphospholipi d Antibodies, Pre vention of systemic emb olism - Acute Myocardia l Infarction (to prevent recurrent infar ct). - XR CHEST 1 [id number] 15:50:00 [facility] 1975 Sex: F Name: GRAZYNA JACOB Damar : 1975 Age/S: 46 / F [address] Unit #: [id number] Loc: [place] [address] Phys: Darryl Haney MD Acct: [id number] Dis Date: Status: ADM IN PHONE #: [phone] Exam Date: 07/12/2021 1450 FAX #: Reason: sob EXAMS: CPT: [id number] XR CHEST 1 V 87095 Fluoro Time: DAP (Gy m2): Air Kerma (mGy): Chest one view AP 07/12/2021 3:46 PM CLINICAL INDICATION: Shortness of breath COMPARISON: 07/10/2021 LOCATION: W1 IMPRESSION: Cardiomediastinal contours are stable. There is moderately advanced pulmonary edema with a moderate volume left pleural effusion. Opacityin the left lung base may reflect atelectasis or pneumonia. at 1550 Reported and signed by: Helder Nunez M.D. CC: Darryl Haney MD; Astrid Olmos MD PAGE 1 Signed Report Name: GRAZYNA JACOBland : 1975 Age/S:46 / F [address] [place] Unit #: [id number] Loc: [place] [address] Phys: Darryl Haney MD Acct: [id number] Dis Date: Status: ADM IN PHONE #: [phone] Exam Date: 07/12/2021 1450 FAX #: Reason: sob EXAMS: CPT: [id number] XR CHEST 1 V 32891 Fluoro Time: DAP (Gy m2): Air Kerma (mGy): (Continued) Technologist: Karen Mathews, RT(R)(CT); Vignesh Redd, RT(R)(CT); .Trnscb Date/Time: 07/12/2021 (1550) [email or web address] Orig Print D/T: S: 07/12/2021 (1986) PAGE 2 Signed ReportBASIC METABOLIC [id number] 05:30:00 Test Item Value Reference Range Interpretation [...] 8.6 MG/DL 8.5-10.1 N CA) BASIC METABOLIC [id number] 05:18:00 Test Item Value Reference Range Interpretation [...] = CA) 8.6 MG/DL 8.5-10.1 N PROTHROMBIN [id number] 05:07:00 Test Item Value Reference Range Interpretation Comments PT PATIENT (test 18.6 SECONDS 9.3-12.9 H code = PTP) INTERNATIONAL NORMAL 1.64 INR Unit 0.8-1.2 H TARGE T INR BY RATIO (test code = INDICATIO N Indication INR) INR1. Prophylax is of venous thrombos is 2.0 - 3.0 (orthoped ic surgery), Proph ylaxis of venous throm bosis (other than hig h-risk surgery), Treat ment of Deep Vein Thrombosis/Pulm onary Embolism, Preve ntion of systemic emb olism - Tissue heart va lves, Acute Myocardia l Infarction (to prevent systemic emboli sm), Valvular heart disease, Acute Myocardial Infa rction (to prevent sys temic embolism), Valv ular heart disease, Atrial Fibrillation, Bileaflet mecha nical valve in aortic position.2. Mec hanical prosthetic valv es (high risk), 2. 5 - 3.5 Presence of Lup us Anticoagulant o r Antiphospholipi d Antibodies, Pre vention of systemic emb olism - Acute Myocardia l Infarction (to prevent recurrent infar ct). ARTERIAL BLOOD [id number] 12:36:00 Test Item Value Reference Range Interpretation [...] (test No Circ.CHK POSITIVE code = MODALL) PaO2/[id number] 12:36:00 Test Item Value Reference Range Interpretation Comments PaO2/FiO2 (test code mm/Hg See_Comment [Autom ated message] The = [id number]) system which ge nerated this result transmit sandy reference range : 200. The reference range was not used to interpr et this result as lucila l/abnormal. ARTERIAL BLOOD [id number] 12:36:00 Test Item Value Reference Range Interpretation [...] (test No Circ.CHK POSITIVE code = MODALL) PaO2/[id number] 12:36:00 Test Item Value Reference Range Interpretation Comments PaO2/FiO2 (test 202.8 mm/Hg See_Comment [Automated message] The code = [id number]) system whic h generated this result tra nsmitted reference range : 200. The reference r will was not used to int erpret this result as normal/abnormal . PROTHROMBIN [id number] 05:50:00 Test Item Value Reference Range Interpretation Comments PT PATIENT (test 23.9 SECONDS 9.3-12.9 H code = PTP) INTERNATIONAL NORMAL 2.10 INR Unit 0.8-1.2 H TARGE T INR BY RATIO (test code = INDICATIO N Indication INR) INR1. Prophylax is of venous thrombos is 2.0 - 3.0 (orthoped ic surgery), Proph ylaxis of venous throm bosis (other than hig h-risk surgery), Treat ment of Deep Vein Thrombosis/Pulm onary Embolism, Preve ntion of systemic emb olism - Tissue heart va lves, Acute Myocardia l Infarction (to prevent systemic emboli sm), Valvular heart disease, Acute Myocardial Infa rction (to prevent sys temic embolism), Valv ular heart disease, Atrial Fibrillation, Bileaflet mecha nical valve in aortic position.2. Mec hanical prosthetic valv es (high risk), 2. 5 - 3.5 Presence of Lup us Anticoagulant o r Antiphospholipi d Antibodies, Pre vention of systemic emb olism - Acute Myocardia l Infarction (to prevent recurrent infar ct). THROMBOPLASTIN TIME [id number] 05:50:00 Test Item Value Reference Range Interpretation Comments THROMBOPLASTIN TIME PARTIAL 30.5 SECONDS 26-35 N (test code = PTT) [id number] 05:50:00 Test Item Value Reference Range Interpretation [...] AND APPROPRIATECLIN ICAL EUALUATIONS. RULE OUT NE [id number] 05:42:00 Test Item Value Reference Range Interpretation [...] yby method. UA RFLX MICR CULT IF [id number] 05:13:00 Test Item Value Reference Range Interpretation [...] DIPSTICK (test NEGATIVE SCREEN NEG code = JOES) UA LEUKOCYTE ESTERASE TRACE Leuk/mcL NEGATIVE A [...] RiskForSepsis-no oth srcUA RFLX MICR CULT IF INDICATED 2021-07-11 05:11:00 Test Item Value Reference Range Interpretation [...] for culture: RiskForSepsis-no oth srcNT PRO-BRAIN NATRIURETIC PEPTI 2021-07-11 03:15:00 Test Item Value Reference Range Interpretation Comments NT PRO-BRAIN NATRIURETIC PEPTI 1759 PG/ML 0-100 H (test code = PROBNP) CBC W/AUTO [id number] 02:26:00 Test Item Value Reference Range Interpretation [...] NT WITH AUTO DIFFERENTI AL. CBC W/AUTO [id number] 02:26:00 Test Item Value Reference Range Interpretation [...] CONSISTA NT WITH AUTO DIFFERENTI AL. RBC [id number] 02:26:00 Test Item Value Reference Range Interpretation Comments HYPOCHROMIA (test code = HYPO) 1+ ON SCAN NONE ANISOCYTOSIS (test code = 1+ NONE ANISO) STOMATOCYTES (test code = STO) TRACE ON SCAN NONE CBC W/AUTO [id number] 02:26:00 Test Item Value Reference Range Interpretation [...] CONSISTA NT WITH AUTO DIFFERENTI AL. LACTIC [id number] 01:43:00 Test Item Value Reference Range Interpretation Comments LACTIC ACID (test code = LACT) 1.2 mmol/L 0.4-2.0 N BASIC METABOLIC [id number] 01:41:00 Test Item Value Reference Range Interpretation [...] 8.5-10.1 N Completed by Nursing: CHRISTIANOHEPATIC FUNCTION [id number] 01:41:00 Test Item Value Reference Range Interpretation [...] N code = ALKP) Completed by Nursing: [id number] 01:41:00 Test Item Value Reference Range Interpretation [...] method. Completed by Nursing: NOCOVID 19 INHOUSE [id number] 01:36:00 Test Item Value Reference Range Interpretation Comments COVID 19 INHOUSE AG NEGATIVE Negative Per manu facturer, (test code = negative result s should [id number]) be treated aspr esumptive and, if inconsi stent with clinical signs andsymptoms or necessary for patient man agement, should betested with an alternative mol ecular assay. Negative resultsdo not preclude SA RS-CoV-2 infection and s hould not be usedas the s ole basis for patient man agement decisions. Nega tive results should be considered in t he context of apatient's r ecent exposures, hist ory, presence of cli nicalsigns and symptoms co nsistent with COVID-19. CBC W/AUTO [id number] 01:15:00 Test Item Value Reference Range Interpretation [...] DIFF/SCN CRITERIA MDIFF) - XR CHEST 1 [id number] 23:46:00 [facility] GRA[facility] JACOB : 1975 Sex: F Name: GRAZYNA JACOB [facility] : 1975 Age/S: 46 / F [address] Unit #: [id number] Loc: [place] [address] Phys: Ruddy Vargas MD Acct: [id number] Dis Date: Status: PRE ER PHONE #: [phone] Exam Date: 07/10/20212334 FAX #: Reason: Code Sepsis EXAMS: CPT: [id number] XR CHEST 1 V 53701 Fluoro Time: DAP (Gy m2): Air Kerma (mGy): EXAM: XR Chest 1 View INDICATION: Code Sepsis LOCATION CODE: H50 COMPARISON: None available. TECHNIQUE: Frontal view of the chest was obtained. FINDINGS: Evaluation is limited secondary to underpenetration from patient body habitus. There are is moderate pulmonary vascular congestion with diffuse groundglass opacities. There is no definite pleural effusion or pneumothorax. The cardiomediastinal silhouette is enlarged. No acute osseous abnormality is identified. IMPRESSION: Limited evaluation secondary to patient body habitus. Cardiomegaly with findings suggestive of pulmonary edema. at 0956 Reported and signed by: Flower Villasenor MD CC: Ruddy Vargas MD PAGE 1 Signed Report Name: GRAZYNA JACOB [facility] : 1975 Age/S: 46 / F [address] Unit #: [id number] Loc: [place] [address] Phys: Ruddy Vargas MD Acct: [id number] Dis Date: Status: PRE ER PHONE #: [phone] Exam Date: 07/10/20212334 FAX #: Reason: Code Sepsis EXAMS: CPT: [id number] XR CHEST 1 V 67889 Fluoro Time: DAP (Gy m2): Air Kerma (mGy): (Continued) Technologist: RT Celeste(R) Trnscb Date/Time: 07/10/2021 (2346) [email or web address] Orig Print D/T: S: 07/10/2021 (1476) PAGE 2 Signed ReportPT/[id number] 15:42:00 Test Item Value Reference Range Interpretation Comments PT (test code = 15.7 See_Comment H [Automated message] 5902-2) The system The Fan Machine generated this result transmitted ref erence range: 11.7 - 1 4.5 Seconds. The re ference range was not u sed to interpret this result as normal/abnor mal. INR (test code = 1.3 Refer to INR 2.0 - 3.0 f or moderate 17424835) therapeutic ranges intensity anticoagulation 2.5 - 3.5 for high in tensity anticoagulation Lab Interpretation Abnormal (test code = 34036-4) [facility]12 LEAD [id number] 11:17:5812 LEAD EKG FOR [facility] Test Date: 6964-33-06Wyx Name: GRAZYNA JACOB Department: MSPatient ID: [id number] Room: Gender: F Inside Sales Coordinator: Doc: 1975 Requested By: PUNEET LOPEZ Order Number: [id number] Reading MD: Mee Vincent MeasurementsIntervals [place] Rate: 101 P: [place]: 0 QRS: 56QRSD: 112 T: 42QT: 381 QTc: 439 Interpretive StatementsATRIAL FIBRILLATION WITH RAPID VENTRICULAR RESPONSELOW QRS VOLTAGE IN PRECORDIAL LEADS [QRS DEFLECTION < 1.0 mV IN CHEST LEADS]MODERATE INTRAVENTRICULAR CONDUCTION DELAY [110+ ms QRS DURATION]NONSPECIFIC T-WAVE ABNORMALITYABNORMAL RHYTHM ECGReviewed by Electronically Signed On 05-25-2021 20:02:19 CDT by Mee Jeffries Kwdkgj37 LEAD [id number] 11:17:5812 LEAD EKG FOR [facility] Test Date: 4120-27-33Hao Name: GRAZYNA JACOB Department: 5GMSPatient ID: [id number] Room: Gender: F Inside Sales Coordinator: Doc: 1975 Requested By: PUNEET LOPEZ Order Number: [id number] Reading MD: Mee Vincent MeasurementsIntervals [place] Rate: 101P: [place]: 0 QRS: 56QRSD: 112 T: 42QT: 381 QTc: 439 Interpretive StatementsATRIAL FIBRILLATION WITH RAPID VENTRICULAR RESPONSELOW QRS VOLTAGE IN PRECORDIAL LEADS [QRS DEFLECTION < 1.0 mV IN CHEST LEADS]MODERATE INTRAVENTRICULAR CONDUCTION DELAY [110+ ms QRS DURATION]NONSPECIFIC T-WAVE ABNORMALITYABNORMAL RHYTHM ECGReviewed by Electronically Signed On 7-10-2021 20:02:19 CDT by [facility]ee [facility] Metabolic [id number] 05:32:00 Test Item Value Reference Range Interpretation Comments Sodium (test code = 141 mmol/L 690-296 6057-2) Potassium (test code = 3.8 mmol/L 3.5-5.1 2823-3) Chloride (test code = 93 mmol/L 98-107 L 2075-0) CO2 (test code = 45 mmol/L 21-31 H 55515687) Urea Nitrogen (test 8.0 mg/dL 7-25 code = 22447020) Creatinine (test code = 0.6 mg/dL 0.6-1.2 22696638) Glucose (test code = 98 mg/dL 70-110 17805533) Calcium (test code = 9.1 mg/dL 8.6-10.3 78229550) eGFR If Am >120 See_Comment [Automat ed message] (test code = 74980053) The s ystem which generated this result transmit sandy reference range : >=90 mL/min/1.7 3 m2. The reference r will was not used to interpret this result as normal/abnormal . eGFR If non- Am 111 See_Comment [Aut omated message] (test code = 67246727) The s ystem which generated this result transmit sandy reference range : >=90 mL/min/1.7 3 m2. The reference r will was not used to interpret this result as normal/abnormal . Anion Gap (test code = 3 mmol/L 5-16 L 51312126) Lab Interpretation Abnormal (test code = 67352-3) [facility] [id number] 05:32:00 Test Item Value Reference Range Interpretation Comments Magnesium (test code = 82312179) 2.0 mg/dL 1.9-2.7 Lab Interpretation (test code = Normal 08928-3) [facility] HospitalCB/[id number] 05:07:00 Test Item Value Reference Range Interpretation Comments WBC (test code = 6690-2) 7.0 K/uL 4.5-11 RBC (test code = 789-8) 4.31 See_Comment [Au tomated message] The system The Fan Machine generated this result transmit sandy reference range [...] (test code = 54.8 fL 36.4-46.3 H 30959-2) Platelet (test code = 294 K/uL 150-400 777-3) Mean Platelet Volume 10.4 fL 9.4-12.4 (test code = 76436-1) Percent NRBC (test code 0.0 % = 87267829) Neutrophil (test code = 71.0 % 34-70 H 770-8) Lymphs (test code = 15.9 % 20-50 L 736-9) Monocytes (test code = 10.3 % 5-12 5905-5) Eos (test code = 713-8) 1.6 % 0.7-5 Basos (test code = 0.9 % 0.1-1.2 706-2) Immature Granulocytes 0.3 % 0-0.5 (test code = 78959173) Neutrophils (Absolute) 4.97 K/uL 1.56-6.13 (test code = 55644466) Lymphs (Absolute) (test 1.11 K/uL 1.18-3.74 L code = 44600511) Monocytes(Absolute) 0.72 K/uL 0.24-0.36 H (test code = 50397318) Eos (Absolute) (test 0.11 K/uL 0.04-0.36 code = 51434056) Baso (Absolute) (test 0.06 K/uL 0.01-0.08 code = 60745060) Immature Grans (Abs) 0.02 K/uL 0-0.03 (test code = 19347972) Absolute NRBC (test code 0.00 K/uL = 87144912) Lab Interpretation (test Abnormal code = 90067-5) [facility] HospitalPregnancy [id number] 16:53:00 Test Item Value Reference Range Interpretation Comments (test code = 34227489) Negative Negative Lab Interpretation (test code = Normal 91599-8) [facility] HospitalPTT - every 6 hours x 24 [id number] 16:09:00 Test Item Value Reference Range Interpretation Comments PTT (test code = 45.1 See_Comment H The recomme nded 75480384) therapuetic ran ge is an APTT 61-103 seconds which corresponds to 0.3-0.7 anti Xa u/ml. [Automated mess age] The system The Fan Machine generated this result transmitted ref erence range: 23.9 - 3 6.0 Seconds. The reference range was not used to int erpret this result as normal/abnormal . Lab Interpretation (test Abnormal code = 41951-8) [facility] LUNG PERFUSION IMAGING [id number] 18:46:40IMPRESSION: 1. Scan findings strongly suggest that acute pulmonary embolic diseaseis not present. Probability according to PIOPED criteria cannot beapplied because of the limited projections obtained. A concurrentventilation study would not alter impression that acute PE is notpresent.2. Enlarged cardiac silhouette. Signed By: Crissy Dupree MD, 05/22/2021 6:46 PM Interface, Rad/Mammog In - 05/22/2021 6:51 PM CDT PERFUSION LUNG SCAN. REASON FOREXAM PROVIDED WITH ORDER: PE suspected, low/intermediateprobability, positive D-dimer COMPARISON STUDIES: DISCUSSION: No ventilation images were obtained because the study wasperformed and the patient room. The patient has a large body habitus andcould not be moved to an imaging table.Perfusion imagesof the lungs in the anterior and anterior obliqueprojections were obtained following intravenous administration of 6 mCiof Tc-99m MAA. Distribution of tracer appears physiologic throughout the lungs. Th ereare no segmental perfusion defects of any size. The contours of thelungs are well demarcated.The cardiac silhouette is enlarged.IMPRESSIONIMPRESSION: 1. Scan findings strongly suggest that acute pulmonary embolic diseaseis not present. Probability according to PIOPED criteria cannot beapplied because of the limited projections obtained. A concurrentventilation study would not alter impression thatacute PE is notpresent.2. Enlarged cardiac silhouette.Signed By: Crissy Dupree MD, 05/22/2021 6:46 [facility]MsmmzvI-Rpdrz2698-70-06 19:13:00 Test Item Value Reference Range Interpretation Comments D-Dimer (test code = 3.22 See_Comment H Values of 26591857) quantitative D- Dimer less than 0.40 ug/mL [...] . Lab Interpretation (test Abnormal code = 50868-3) [facility] HospitalEqswciUnbzjxdwej9975-32-50 18:55:00 Test Item Value Reference Range Interpretation Comments Color (test code = Yellow Colorless, Straw, 42932266) Yellow Clarity (test code = Clear Clear 26362956) Spec Amity, Ur (test 1.012 1.001-1.035 code = 97230390) pH, Ur (test code = 6.0 5.0-8.0 78541677) Protein, Ur (test code Negative Negative mg/dL = 78196012) Glucose, Ur (test code Negative Negative mg/dL = 64541993) Ketone, Ur (test code = Negative Negative mg/dL 01902169) Bilirubin, Ur (test Negative Negative mg/dL code = 26840178) Nitrite, Ur (test code Negative Negative = 36627988) Leukocyte (test code = Negative Negative mg/dL 88463551) Blood, Ur (test code = 1+ Negative mg/dL A 93406145) RBC (test code = 5 See_Comment H [Automated message] 74130660) The system The Fan Machine generated this result transmit sandy reference range : 0 - 4 /HPF. The reference range was not used to interpret this result as normal/abnormal . WBC (test code = 1 See_Comment [Automated message] 08983748) The system The Fan Machine generated this result transmit sandy reference range : 0 - 5 /HPF. The reference range was not used to interpret this result as normal/abnormal . Epithelial Cell (test <1 See_Comment [Auto mated message] code = 16354920) The system which generated this result transmit sandy reference range : <=1 /HPF. The refer ence range was not u sed to interpret th is result as normal/abnormal . Mucous (test code = Present None seen /HPF A 03413594) Urobilinogen, Ur (test <1.0 See_Comment [Aut omated message] code = 71286569) The system which generated this result transmit sandy reference range : <1.0 EU/dL. The reference range was not used to interpret this result as normal/abnormal . Lab Interpretation Abnormal (test code = 99815-9) [place] [address] LEAD [id number] 17:44:5512 LEAD EKG FOR [facility] Test Date: 6754-06-18Bvc Name: GRAZYNA JACOB Department: 5520Patient ID: [id number] Room: Gender: F Inside Sales Coordinator: [id number]: 1975 Requested By: PUNEET LOPEZ Order Number: [id number] Reading MD: Mee Vincent MeasurementsIntervals [place] Rate: 115P: [place]: 0 QRS: 51QRSD: 116 T: 0QT: 169 QTc: 237 Interpretive StatementsATRIAL FLUTTER/TACHYCARDIA WITH RAPID VENTRICULAR RESPONSELOW QRS VOLTAGE IN PRECORDIAL LEADSMODERATE INTRAVENTRICULAR CONDUCTION DELAYNONSPECIFIC T-WAVE ABNORMALITYABNORMAL RHYTHM ECGReviewed by Electronically Signed On 05-22-2021 9:24:28 CDT by Mee VelasquezEastern State Hospitalkellee [place] [address] LEAD [id number] 17:44:5512 LEAD EKG FOR [facility] Test Date: 0054-16-37Lhk Name: GRAZYNA GARDNER Department: 5520Patient ID: [id number] Room: Gender: F Inside Sales Coordinator: [id number]: 1975 Requested By: PUNEET LOPEZ Order Number: [id number] Reading MD: Mee Vincent MeasurementsIntervals [place] Rate: 115 P: [place]: 0 QRS: 51QRSD: 116 T: 0QT: 169 QTc: 237 Interpretive StatementsATRIAL FLUTTER/TACHYCARDIA WITH RAPID VENTRICULAR RESPONSELOW QRS VOLTAGE IN PRECORDIAL LEADSMODERATE INTRAVENTRICULAR CONDUCTION DELAYNONSPECIFIC T-WAVE ABNORMALITYABNORMAL RHYTHM ECGReviewed by Electronically Signed On 05-22-2021 9:24:[address] [facility]'s HospitalTRANSTHORACIC ECHO (TTE)2021-05-21 10:14:00TRANSTHORACIC ECHO (TTE) Transthoracic Echo Report GRAZYNA JACOB Age: 46 Gender: F : 1975 Exam Date: 05/21/2021 06:37 Exam Location: [facility] Echo Ordering Phys: PUNEET LOPEZ Referring Phys: Reading Phys: Mee Vincent MD Fellow Phys: Fellow Phys: Software Security Consultant: Desmond Reason For Exam: Indications: new afib, Other specified conduction disorders ICD-9 Codes: I45.89 Exam Type: TRANSTHORACIC ECHO (TTE) Procedure CPT: 35008 Addtional CPT: Ht (in): 67 BSA: 3.14 HR: 130 Rhythm: Atrial fibrillation Wt (lb): 423 BP: 111 / 68 Technical Quality: History: MEASUREMENTS Normal ranges based on 95% confidence intervals for adults, some normal patients may fall outside of this range especially when indexing for BSA 2D ECHO LV Diastolic Diameter PLAX 5.3 cm 4.2- 5.8 (M) / 3.8-5.2 (F) LV Systolic Diameter PLAX 4.1 cm 2.5-4.0 (M) / 2.2-3.5 (F) LV Fractional Shortening PLAX 22.2 % IVS Diastolic Thickness 1.6 cm 0.6-1.0 (M) / 0.6-0.9 (F) LVPW Diastolic Thickness 1.2 cm 0.6-1.0 (M) / 0.6-0.9 (F) LV Relative Wall Thickness 0.53 <= 0.42 LVOT Diameter 2.[address] ter 3.4 cm LA Systolic Diameter LX 3.7 cm LA Ao Ratio 1.1 LV Mass by linear method 316 g LV Mass bylinear method Index 101 g/m2 FINDINGS Left Ventricle Normal left ventricular size. Mild to moderate concentric left ventricular hypertrophy. Grossly, LVEF appears to be around 40-50%. Poor endocardial v isualization. Flattened septum in systole and diastole consistent with right ventricle pressure and volume overload. Cannot grade LV diastology due to atrial fibrillation. Right Ventricle Right ventricle not well visualized. Grossly appears dilated Right Atrium Right atrium not well visualized. Left Atrium Left atrium not well visualized. Grossly appears dilated IAS Mitral Valve Mitral leaflets mildly thickened. Aortic Valve Aortic valve not well visualized. Tricuspid Valve Tricuspid valve not wellvisualized. Pulmonic Valve Pulmonic valve not well visualized. Pericardium Minimal pericardial [...] PLAX 4.1 cm 2.5-4.0 (M) / 2.2-3.5 (F)LV Fractional Shortening PLAX 22.2 % IVS Diastolic Thickness 1.6 cm 0.6-1.0 (M) / 0.6-0.9 (F) LVPW Di astolic Thickness 1.2 cm 0.6-1.0 (M) / 0.6-0.9 (F) LV Relative Wall Thickness 0.53 <= 0.42 LVOT Diameter 2.3 cm Aortic Root Diameter 3.4 cm LA Systolic Diameter LX 3.7 cm LA Ao Ratio 1.1 LV Mass bylinear method 316 g LV Mass by linear method Index 101 g/m2 [facility]21-[facility]-21 10:14:00TRANSTHORACIC ECHO (TTE) Transthoracic Echo Report GRAZYNA JACOB Age: 46 Gender: F : 1975 Exam Date: 05/21/2021 06:37 Exam Location: [facility] Echo Ordering Phys: PUNEET LOPEZ Referring Phys: Reading Phys: Mee Vincent MD Fellow Phys: Fellow Phys: Software Security Consultant: Taina Rene Reason For Exam: Indications: new afib, Other specified conduction disorders ICD-9 Codes: I45.89 Exam Type: TRANSTHORACIC ECHO (TTE) Procedure CPT: 09086 Addtional CPT: Ht (in): 67 BSA: 3.14 HR: 130 Rhythm: Atrial fibrillation Wt (lb): 423 BP: 111 / 68 Technical Quality: History: MEASUREMENTSNormal ranges based on 95% confidence intervals for adults, some normal patients may fall outside ofthis range especially when indexing for BSA 2D [...] LA Systolic Diameter LX 3.7 cm LA Ao Ratio 1.1 LV Mass by linear method 316 g LV Mass bylinear method Index 101 g/m2 FINDINGS Left Ventricle Normal left ventricular size. Mild to moderate c oncentric left ventricular hypertrophy. Grossly, LVEF appears to be around 40- 50%. Poor endocardial visualization. Flattened septum in systole and diastole consistent with right ventricle pressure and volume overload. Cannot grade LV diastology due to atrial fibrillation. Right Ventricle Right ventricle not well visualized. Grossly appears dilated Right Atrium Right atrium not well visualized. Left Atrium Left atrium not well visualized. Grossly appears dilated IAS Mitral Valve Mitral leaflets mildly thickened. Aortic Valve Aortic valve not well visualized. Tricuspid Valve Tricuspid valve not well visualized. Pulmonic Valve Pulmonic valve not well visualized. Pericardium Minimal pericardial effusion (normal variant). Aorta Normal size aortic root. IVC RA pressure is 5- 10 mmHg. CONCLUSIONS Echocardiographic contrast was administered for [...] are technically difficult due to patient body habitus.Mee Vincent MD (Electronically Signed) Final Date: 21 May 2021 10:14 2D ECHO LV Diastolic Diameter PLAX 5.3 cm 4.2-5.8 (M) / 3.8-5.2 (F) LV Systolic Diameter PLAX 4.1 cm 2.5-4.0 (M) / 2.2-3.5 (F)LV Fractional Shortening PLAX 22.2 % IVS Diastolic Thickness 1.6 cm 0.6-1.0 (M) / 0.6-0.9 (F) LVPW Diastolic Thickness 1.2 cm 0.6-1.0 (M) / 0.6-0.9 (F) LV Relative Wall Thickness 0.53 <= 0.42 LVOT Diameter 2.3 cm Aortic Root Diameter 3.4 cm LA Systolic Diameter LX 3.7 cm LA Ao Ratio 1.1 LV Mass by linear method 316 g LV Mass by linear method Index 101 g/m2 [facility] [id number] 08:01:00 Test Item Value Reference Range Interpretation Comments Hemoglobin A1c (test code = 4548-4) 5.9 % 4.3-6.1 Estimated Average Glucose (test 123 mg/dL 70-110 H code = 27270622) Lab Interpretation (test code = Abnormal 58035-6) [facility] HospitalLipid [id number] 06:23:00 Test Item Value Reference Range Interpretation Comments Cholesterol (test 69.0 mg/dL See_Comment [Automate d message] code = 2093-3) The system [facility] generated this result transmit sandy reference range : <=200.0. The reference range was not used to interpret this result as normal/abnormal . Triglyceride (test 70 mg/dL <150 code = 84781935) HDL (test code = 18.0 mg/dL See Reference 2085-9) Range Narrative. LDL (test code = 37 mg/dL <100 Optimal: < 100.0 86144-0) mg/dLNear Optim al: 120-129 mg/dLBorderline : 130-159 mg/dLHi gh: 160-189 mg/dLVe ry High: >=190 mg/ dL Patient Fasting? Yes (test code = 74760555) [facility] HospitalFrancisronavirus, CoVID-19, [id number] 23:30:00 Test Item Value Reference Range Interpretation Comments COVID-19 Not Detected Not Detected INTERPRETATION: (SARS-COV-2) (test No detect able code = 62357-0) levels of SARS-CoV-2 Coronavirus (COVID-19) were present [...] MARIO (test code = COMMENT: This MARIO) [email or web address] Aptima SARS-CoV-2 molecular diagnostic assay utilizes Hand Binder Cutter Mediated Amplification (TMA) technology to rapidly detect the SARS-CoV-2 (COVID-19) virus from respiratory samples. In accordance with the FDA's guidance document "Policy for Diagnostic Tests for Coronavirus Disease-2019 during the Public Health Emergency", this test was developed, and its performance characteristics were verified by the [facility] molecular diagnostics laboratory and is authorized for clinical diagnostic use. This laboratory is certified under the Clinical Laboratory Improvement Amendments (CLIA) as qualified to perform high complexity clinical laboratory testing. Lab Interpretation Normal (test code = 45029-5) [facility] HospitalFrancisronavirus, CoVID-19, [id number] 23:30:00 Test Item Value Reference Range Interpretation Comments COVID-19 Not Detected Not Detected INTERPRETATION: (SARS-COV-2) (test No detect able code = 85849-1) levels of SARS-CoV-2 Coronavirus (COVID-19) were present [...] MARIO (test code = COMMENT: This MARIO) [email or web address]pt[employer] SARS-CoV-2 molecular diagnostic assay utilizes Hand Binder Cutter Mediated Amplification (TMA) technology to rapidly detect the SARS-CoV-2 (COVID-19) virus from respiratory samples. In accordance with the FDA's guidance document "Policy for Diagnostic Tests for Coronavirus Disease-2019 during the Public Health Emergency", this test was developed, and its performance characteristics were verified by the [facility] molecular diagnostics laboratory and is authorized for clinical diagnostic use. This laboratory is certified under the Clinical Laboratory Improvement Amendments (CLIA) as qualified to perform high complexity clinical laboratory testing. Lab Interpretation Normal (test code = 99563-9) [facility] [id number] 17:27:00 Test Item Value Reference Range Interpretation Comments Free T4 (test code = 95209928) 1.04 ng/dl 0.64-1.42 Lab Interpretation (test code = Normal 50112-6) [facility] [id number] 17:25:00 Test Item Value Reference Range Interpretation Comments TSH (test code = 5.13 See_Comment If , please 71278067) see the followi ng reference range s [...] . Lab Interpretation (test Normal code = 17750-9) [facility] HospitalBeta-hCG, [id number] 17:14:00 Test Item Value Reference Range Interpretation Comments hCG, Quantitative (test <1.0 See_Comment [Au tomated message] code = 99208418) The system which generated this result transmitted ref erence range: <5.0 mIU /mL. The reference r will was not used to interpret this result as normal/abnor mal. Lab Interpretation (test Normal code = 06776-3) [facility] HospitalB-Type Natriuretic Peptide (BNP)2021-05-20 17:12:00 Test Item Value Reference Range Interpretation Comments B Natriuretic Peptide 173 pg/mL See_Comment H [Auto mated message] (BNP) (test code = The syste m which 71222423) generated this result transmit sandy reference range : <=100. The refe rence range was not u sed to interpret th is result as normal/abnormal . Lab Interpretation (test Abnormal code = 67616-5) [facility] HospitalTroponin [id number] 17:11:00 Test Item Value Reference Interpretation Comments Range Troponin I (test <0.03 See_Comment [Automated code = 70110397) message] Th e system which generated this [...] values. Lab Interpretation Normal (test code = 38971-8) [facility] HospitalXRAY CHEST 1 [id number] 16:25:32IMPRESSION: Evidence of pulmonary vascular congestion. Mild to moderate left pleuraleffusion noted. T hese appear more prominent since prior study. Signed By: Francis Thompson MD, 05/20/2021 4:25 PM Aubrey,Jose/Mammog In - 05/20/2021 5:27 PM CDT EXAM: XRAY CHEST 1 VIEWINDICATION: cpCOMPARISON: 02/11/2021 FINDINGS: 1 view of the chest. TUBES and LINES: None.LUNGS: Lungs are low volume. Evidence of pulmonary vascular congestion.Partial accentuationfrom low lung volume.Increase opacification in the left lower lung may represent underlyingatelectasis or pleural effusion or underlying concomitant pneumonia isnot excludedPLEURA: No pneumothorax. Mild to moderate left pleural effusionHEART AND MEDIASTINUM: Mild prominence of the cardiac silhouette ispartly due to magnification from AP projection radiograph. Unremarkablevisualized aorta.BONES AND SOFT TISSUES: No acute osseous lesion. Soft tissues areunremarkable.IMPRESSIONIMPRESSION: Evidence of pulmonary vascular congestion. Mild to moderate left pleuraleffusion noted. These appear more prominent since prior study.Signed By: Francis Thompson MD, 05/20/2021 4:25 PM [place] [address] LEAD [id number] 15:54:3812 LEAD EKG FOR [facility] Test Date: [id number] Name: GRAZYNA JACOB Department: 5520Patient ID: [id number] Room: [place] [address]Gender: F Inside Sales Coordinator: [id number]: 1975 RequestedBy: NATHALIE Carrillo Number: [id number] Reading MD: nathan albert MeasurementsIntervals [place] Rate: 116 P: [place]: 0 QRS: 26QRSD: 106 T: -6QT: 325 QTc: 394 Interpretive StatementsATRIAL FLUTTER/TACHYCARDIA WITH RAPID VENTRICULAR RESPONSELOW QRS VOLTAGE IN PRECORDIAL LEADS [QRS DEFLECTION < 1.0 mV IN CHEST LEADS]ABNORMAL RHYTHM ECGElectronically Signed On 05-20-2021 20:27:02 CDT by nathan [place] [address] LEAD [id number] 15:54:3812 LEAD EKG FOR [facility] Test Date: [id number] Name: GRAZYNA JACOB Department: 5520Patient ID: [id number] Room: [facility] D 09Gender: F Inside Sales Coordinator: [id number]: 1975 Requested By: NATHALIE Carrillo Number: [id number] Reading MD: natahn albert MeasurementsIntervals [place] Rate:116 P: [place]: 0 QRS: 26QRSD: 106 T: -6QT: 325 QTc: 394 Interpretive StatementsATRIAL FLUTTER/TACHYCARDIA WITH RAPID VENTRICULAR RESPONSELOW QRS VOLTAGE IN PRECORDIAL LEADS [QRS DEFLECTION < 1.0 mV IN CHEST LEADS]ABNORMAL RHYTHM ECGElectronically Signed On 05-20-2021 20:27:02 CDT by [facility] TROP[facility]IN [facility] POC docked device 2021-05-20 15:42:00 Test Item Value Reference Range Interpretation Comments Troponin POC (test 0.01 ng/mL 0-0.08 Physician code = 59316854) Notified MARIO (test code = MARIO) <0.08 ng/mL Normal>=0.08 ng/mL Positive for Myocardial injuryNote: The >=0.08 ng/mL cTnI is at the 99th percentile of the non-AMI population. Lab Interpretation Normal (test code = 14761-6) [facility] TROPONIN I POC docked [id number] 15:42:00 Test Item Value Reference Range Interpretation Comments Troponin POC (test 0.01 ng/mL 0.00-0.08 Physician code = 41118575) Notified MARIO (test code = MARIO) <0.08 ng/mL Normal>=0.08 ng/mL Positive for Myocardial injuryNote: The >=0.08 ng/mL cTnI is at the 99th percentile of the non-AMI population. Lab Interpretation Normal (test code = 45384-4) [facility] BMP POC docked [id number] 15:36:00 Test Item Value Reference Range Interpretation Comments Sodium POC (test code = 142 mmol/L 136-145 96728982) Potassium POC (test code 3.9 mmol/L 3.5-5.1 = 10400702) Chloride POC (test code 97 mmol/L 98-107 L = 94392248) TCO2 POC (test code = 34 mmol/L 21-32 H Physic preeti Notified 22967511) Urea Nitrogen POC (test 9 mg/dL 7-18 code = 03710461) Glucose POC (test code = 157 mg/dL 74-106 H 07787303) Hemoglobin POC (test 14.3 g/dL 12-16 code = 36692819) Hematocrit POC (test 42.0 % 37-47 code = 59326749) Lab Interpretation (test Abnormal code = 50680-2) [facility] BMP POC docked [id number] 15:36:00 Test Item Value Reference Range Interpretation Comments Sodium POC (test code = 142 mmol/L 136-145 29890516) Potassium POC (test code 3.9 mmol/L 3.5-5.1 = 65224716) Chloride POC (test code 97 mmol/L 98-107 L = 81318086) TCO2 POC (test code = 34 mmol/L 21-32 H Physic preeti Notified 23395907) Urea Nitrogen POC (test 9 mg/dL 7-18 code = 64887393) Glucose POC (test code = 157 mg/dL 74-106 H 36826507) Hemoglobin POC (test 14.3 g/dL 12-16 code = 22785091) Hematocrit POC (test 42.0 % 37.0-47.0 code = 77430461) Lab Interpretation (test Abnormal code = 95902-4) [facility] CREATININE POC docked [id number] 15:35:00 Test Item Value Reference Range Interpretation Comments Creatinine POC (test 0.6 mg/dL 0.6-1.3 Physici an Notified code = 82913364) eGFR If non- Am >90 See_Comment [Aut omated message] (test code = 27020391) The s ystem which generated this result transmit sandy reference range : >=90 mL/min/1.7 3 m2. The reference r will was not used to interpret this result as normal/abnormal . eGFR If Am (test >90 See_Comment [A utomated message] code = 21722362) The system which generated this result transmit sandy reference range : >=90 mL/min/1.7 3 m2. The reference r will was not used to interpret this result as normal/abnormal . Lab Interpretation (test Normal code = 74768-0) [facility] VBG POC docked [id number] 15:35:00 Test Item Value Reference Range Interpretation Comments pH, Ace POC (test code 7.40 7.33-7.43 = 86171202) pCO2,Ace POC (test code 53.3 See_Comment H [Au tomated = 13370390) message] The sy stem which generated this result transmitted reference range : 38 - 50 mmHg. The reference range was not used to interpret this result as normal/abnormal . PO2, Venous POC (BKR) 49 See_Comment L [Auto mated (test code = 96800658) messa ge] The system which generated this result transmitted reference range : 50 - 75 mm Hg. The reference range was not used to interpret this result as normal/abnormal . Ionized Calcium POC 1.15 mmol/L 1.15-1.29 (test code = 10870514) HCO3, Ace POC (test 33 mmol/L 22-26 H code = 86161553) TCO2 POC (test code = 34 mmol/L 21-32 H 36080970) Base Excess Ace POC 6 mmol/L (test code = 78477748) Sample Type (test code IVJEANNINE Physi hermes Notified = 97134559) % Sat, Ace POC (test 83 % code = 57572865) Lab Interpretation Abnormal (test code = 24524-0) [facility] CREATININE POC docked [id number] 15:35:00 Test Item Value Reference Range Interpretation Comments Creatinine POC (test 0.6 mg/dL 0.6-1.3 Physici an Notified code = 81385418) eGFR If non- Am >90 See_Comment [Aut omated message] (test code = 48879406) The s ystem which generated this result transmit sandy reference range : >=90 mL/min/1.7 3 m2. The reference r will was not used to interpret this result as normal/abnormal . eGFR If Am (test >90 See_Comment [A utomated message] code = 46546875) The system which generated this result transmit sandy reference range : >=90 mL/min/1.7 3 m2. The reference r will was not used to interpret this result as normal/abnormal . Lab Interpretation (test Normal code = 36998-0) [facility] VBG POC docked [id number] 15:35:00 Test Item Value Reference Range Interpretation Comments pH, Ace POC (test code 7.40 7.33-7.43 = 93803728) pCO2,Ace POC (test code 53.3 See_Comment H [Au tomated = 17555645) message] The sy stem which generated this result transmitted reference range : 38 - 50 mmHg. The reference range was not used to interpret this result as normal/abnormal . PO2, Venous POC (BKR) 49 See_Comment L [Auto mated (test code = 33732348) messa ge] The system which generated this result transmitted reference range : 50 - 75 mm Hg. The reference range was not used to interpret this result as normal/abnormal . Ionized Calcium POC 1.15 mmol/L 1.15-1.29 (test code = 05176658) HCO3, Ace POC (test 33 mmol/L 22-26 H code = 22173352) TCO2 POC (test code = 34 mmol/L 21-32 H 62801429) Base Excess Ace POC 6 mmol/L (test code = 78052423) Sample Type (test code IVEN Physi hermes Notified = 47121364) % Sat, Ace POC (test 83 % code = 62543741) Lab Interpretation Abnormal (test code = 25362-2) [place] [address] LEAD [id number] 15:23:0612 LEAD EKG FOR [facility] Test Date: [id number] Name: GRAZYNA JACOB Department: 5520Patient ID: [id number] Room: Gender: F Inside Sales Coordinator: [id number]: 1975 Requested By: NATHALIE Carrillo Number: [id number] Reading MD: nathan albert MeasurementsIntervals [place] Rate: 191 P: [place]: 0 QRS: 30QRSD: 97 T: 0QT: 196 QTc: 294 Interpretive StatementsATRIAL FIBRILLATION WITH RAPID VENTRICULAR RESPONSELOW QRS VOLTAGE IN PRECORDIAL LEADS [QRS DEFLECTION < 1.0 mV IN CHEST LEADS]MODERATE ST DEPRESSION [0.05+ mV ST DEPRESSION]CRITICAL TEST RESULTElectronically Signed On 05-20-2021 15:43:36 CDT by nathan Stone [place] [address] LEAD [id number] 15:23:0612 LEAD EKG FOR [facility] Test Date: [id number] Name: GRAZYNA JACOB Department: 5520Patient ID: [id number] Room: Gender: F Inside Sales Coordinator: [id number]: 1975 Requested By: NATHALIE Carrillo Number: [id number] Reading MD: nathan albert MeasurementsIntervals [place] Rate: 191 P: [place]: 0 QRS: 30QRSD: 97 T: 0QT: 196 QTc: 294 Interpretive StatementsATRIAL FIBRILLATION WITH RAPID VENTRICULAR RESPONSELOW QRS VOLTAGE IN PRECORDIAL LEADS [QRS DEFLECTION < 1.0 mV IN CHEST LEADS]MODERATE ST DEPRESSION [0.05+ mV ST DEPRESSION]CRITICAL TEST RESULTElectronically Signed On 05-20-2021 15:43:36 CDT by [facility] GLU[facility]SE POC docked [id number] 13:06:00 Test Item Value Reference Range Interpretation Comments Glucose POC (test code = 69622682) 105 mg/dL 74-106 Lab Interpretation (test code = Normal 28388-2) [facility] GLUCOSE POC docked [id number] 13:06:00 Test Item Value Reference Range Interpretation Comments Glucose POC (test code = 83412199) 105 mg/dL 74-106 Lab Interpretation (test code = Normal 10822-9) [facility] HospitalEfnuhiFkyjgblpon5769-53-96 05:55:00 Test Item Value Reference Range Interpretation Comments Phosphorus (test code = 2777-1) 3.3 mg/dL 2.5-5 Lab Interpretation (test code = Normal 43547-5) [facility] HospitalDifferential, [id number] 10:07:00 Test Item Value Reference Range Interpretation Comments Neutrophil (test code = 74324689) 80.0 % 34-70 H Lymphs (test code = 86296468) 14.0 % 20-50 L Monocytes (test code = 86200240) 6.0 % 5-12 Eos (test code = 69188703) 0.0 % 0.7-5 L Basos (test code = 59723013) 0.0 % 0.1-1.2 L Neutrophils (Absolute) (test code = 7.03 K/uL 1.56-6.13 H 02149066) Lymphs (Absolute) (test code = 1.23 K/uL 1.18-3.74 89866344) Monocytes(Absolute) (test code = 0.53 K/uL 0.24-0.36 H 41529804) Eos (Absolute) (test code = 0.00 K/uL 0.04-0.36 L 66039887) Baso (Absolute) (test code = 0.00 K/uL 0.01-0.08 L 93069713) Large Platelets (test code = 2+ None seen A 67831183) Platelet Clumps (test code = Present None seen A 07490402) Hypochromia (test code = 62251514) 3+ None seen A Ovalocyte (test code = 94866967) 2+ None seen A Stomatocyte (test code = 62392377) 2+ None seen A Cells Counted (test code = 87972337) Lab Interpretation (test code = Abnormal 42082-0) [facility] [id number] 06:36:00 Test Item Value Reference Range Interpretation Comments Sodium (test code = 141 mmol/L 762-310 1291-2) Potassium (test code = 3.8 mmol/L 3.5-5.1 2823-3) Chloride (test code = 98 mmol/L 98-107 2075-0) CO2 (test code = 38 mmol/L 21-31 H 43946695) Glucose (test code = 113 mg/dL 70-110 H 89132646) Calcium (test code = 8.2 mg/dL 8.6-10.3 L 18127836) Urea Nitrogen (test 9.0 mg/dL 7-25 code = 46024566) Creatinine (test code = 0.6 mg/dL 0.6-1.2 18502248) Alkaline Phosphatase 38 U/L 34-104 (test code = 57935614) ALT (test code = 11 U/L 7-52 66491224) AST (test code = 12 U/L 13-39 L 23337298) Total Protein (test 6.8 g/dL 6-8.3 code = 2885-2) eGFR If non- Am >90 See_Comment [Aut omated message] (test code = 01141276) The s ystem which generated this result transmit sandy reference range : >=90 mL/min/1.7 3 m2. The reference r will was not used to interpret this result as normal/abnormal . Albumin (test code = 3.1 g/dL 3.7-5.3 L 24139-2) Anion Gap (test code = 5 mmol/L 5-16 10640235) Lab Interpretation Abnormal (test code = 40357-9) [facility] HospitalBlood Gas, [id number] 04:33:00 Test Item Value Reference Range Interpretation Comments Temperature (test code 37.0 degree C = 80720723) pH, Venous (test code = 7.36 7.33-7.43 58833944) pCO2, Venous (test code 71.3 See_Comment HH [Au tomated = 82750886) message] The sy stem which generated this result transmitted reference range : 38 - 50 mm Hg. The reference range was not used to interpret this result as normal/abnormal . pO2, Venous (test code 54.8 See_Comment [Aut omated = 15625815) message] The sy stem which generated this result transmitted reference range : 50 - 75 mm Hg. The reference range was not used to interpret this result as normal/abnormal . Base Excess, Venous 13.2 mmol/L -2.5-2.5 H (test code = 96617315) HCO3, Venous (test code 39.2 mmol/L 22-26 H = 57752719) % Sat, Venous (test 86.6 % 60-85 H code = 20886326) Lab Interpretation Abnormal (test code = 40587-4) [facility] HospitalHgb/Bru8115-01-11 22:29:00 Test Item Value Reference Range Interpretation Comments Hemoglobin (test code = 718-7) 7.5 g/dL 12-16 L Hematocrit (test code = 4544-3) 32.0 % 37-47 L Lab Interpretation (test code = Abnormal 69064-1) [facility] HospitalCrossmatch RBC Units, 1 [id number] 12:35:00 Test Item Value Reference Range Interpretation Comments RBC UNITS (test code = compatible 27613949) Unit ABO Type (test code = O 58076031) Unit Rh Type (test code = POS 36966308) Product Code (test code = E0336 20713713) Unit Number (test code = [id number] 90414989) Unit Status (test code = transfused 88578148) ISBT Product Code (test code = L4507Q16 47266) Blood Type (test code = 36632) 5100 Blood Expiration Date (test code = 60857) [facility] HospitalCrossmatch RBC Units, 1 [id number] 12:35:00 Test Item Value Reference Range Interpretation Comments RBC UNITS (test code = compatible 93225934) Unit ABO Type (test code = O 64682287) Unit Rh Type (test code = POS 50300615) Product Code (test code = E0336 86947137) Unit Number (test code = [id number] 15135350) Unit Status (test code = transfused 81140445) ISBT Product Code (test code = D1336H21 95549) Blood Type (test code = 38658) 5100 Blood Expiration Date (test code = 96977) [facility] HospitalVitamin [id number] 08:32:00 Test Item Value Reference Range Interpretation Comments Vitamin B12 (test code 351 pg/mL See comment Lucila l: 180-914 = 26281298) pg/mLIntermitte nt: 145-180 pg/mLDeficient: <=145.0 pg/mL [facility] HospitalLegionella Antigen, [id number] 08:20:00 Test Item Value Reference Range Interpretation Comments Legionella Ag, Ur (test code = Negative Negative 47513-0) Lab Interpretation (test code = Normal 19289-2) [facility] HospitalStrep Pneumo Ag, [id number] 01:40:00 Test Item Value Reference Range Interpretation Comments S. pneumo Ur Antigen (test code = Negative Negative 15856-0) Lab Interpretation (test code = Normal 13567-4) [facility] HospitalTRANSTHORACIC ECHO (TTE)2021-02-13 13:02:00TRANSTHORACIC ECHO (TTE) Transthoracic Echo Report JACOBGRAZYNA LUGO Age: 45 Gender: F : 1975 Exam Date: 02/13/2021 08:08 Exam Location: [facility] Echo Ordering Phys: MARBELLA ALLAN Referring Phys: [id number] Reading Phys: Mee Vincent MD Fellow Phys: Fellow Phys: Software Security Consultant: Isma Nunez Reason For Exam: Indications: Obstructive sleep apnea, rule out pulmonary hypertension, Other secondary pulmonary hypertension, Morbid (severe) obesity due to excess calories ICD-9 Codes: I27.2 E66.01 Exam Type: TRANSTHORACIC ECHO (TTE) Procedure CPT: 00968 Addtional CPT: Ht (in): 67 BSA: 3.38 HR: 81 Rhythm: Sinus rhythm Wt (lb): 486 BP: 121 / 76 Technical Quality: Very technically difficult study History: MEASUREMENTS Normal ranges based on 95% confidence intervals for adul ts, some normal patients may fall outside of this range especially when indexing for BSA 2D ECHO LV Diastolic Diameter PLAX 5.9 cm 4.2-5.8 (M) / 3.8-5.2 (F) LV Systolic Diameter PLAX 3.7 cm 2.5-4.0 (M)/ 2.2-3.5 (F) LV Fractional Shortening PLAX 37.4 [...] Atrium Left Atrium IAS Mitral Valve Aortic ValveTricuspid Valve Pulmonic Valve Pericardium Aorta Normal size [...] 0.6-1.0 (M) / 0.6-0.9 (F) LVPW Diastolic Thickness1.4 cm 0.6-1.0 (M) / 0.6-0.9 (F) LV Relative Wall Thickness 0.45 <= 0.42 Aortic Root Diameter 3.5 cm LV Mass by linear method 345 g LV Mass by linear method Index 102 g/m2 [facility] TRANSTHORACIC ECHO (TTE)2021-02-13 13:02:00TRANSTHORACIC ECHO (TTE) Transthoracic Echo Report GRAZYNA JACOB Age: 45 Gender: F : 1975 Exam Date: 02/13/2021 08:08 Exam Location: [facility] Echo Ordering Phys: MARBELLA ALLAN Referring Phys: [id number] Reading Phys: Mee Vincent MD Fellow Phys: Fellow Phys: Software Security Consultant: Isma Nunez Reason For Exam: Indications: Obstructive sleep apnea, rule out pulmonary hypertension, Other secondary pulmonary hypertension, Morbid (severe) obesity due to excess calories ICD-9 Codes: I27.2 E66.01 Exam Type: TRANSTHORACIC ECHO (TTE) Procedure CPT: 65357 Addtional CPT: Ht (in): 67 BSA: 3.38 HR: 81 Rhythm: Sinus rhythm Wt (lb): 486 BP: 121 / 76 Technical Quality: Very technically difficult study History: MEASUREMENTS Normal ranges based on 95% confidence intervals for adults, some normal patients may fall outside of this range especially when indexing for BSA 2D ECHO LVDiastolic Diameter PLAX 5.9 cm 4.2-5.8 (M) / [...] 345 g LV Mass by linear method Rmhci442 g/m2 FINDINGS Left Ventricle Right Ventricle Right Atrium Left Atrium IAS Mitral Valve Aortic Valve Tricuspid Valve Pulmonic Valve Pericardium Aorta Normal size aortic root. IVC CONCLUSIONS Limitedstudy. Very technically difficult due to patient body habitus. Grossly, normal LV size and function.LVEF >50%. No obvious pericardial effusion. Unable to adequately comment further. Mee Slater (Electronically Signed) Final Date: 13 February 2021 13:01 2D ECHO LV Diastolic Diameter PLAX 5.9 cm4.2-5.8 (M) / 3.8-5.2 (F) LV Systolic Diameter [...] Mass by linear method Index 102 g/m2 [facility] T&S [id number] 06:58:00 Test Item Value Reference Range Interpretation Comments Specimen Expiration (test 02/16/2021 23:59 code = 90636585) ABO/RH (test code = O POS 25433083) Antibody Screen (test code = NEG 54057127) [facility] [id number] 06:57:00 Test Item Value Reference Range Interpretation Comments ABO/RH (test code = 87004242) O POS [facility] [id number] 03:07:00 Test Item Value Reference Range Interpretation [...] MARIO (test code = MARIO) Performed at: [facility] [address] [place], [place] [id number] Director: Denis Lugo MD, Phone: [phone] Lab Interpretation Abnormal (test code = 35151-2) [facility] HospitalEtsbtsCrjozytx5731-03-34 05:33:00 Test Item Value Reference Range Interpretation Comments Ferritin (test code = 54311063) <10.0 11-306.8 L Lab Interpretation (test code = Abnormal 84632-0) [facility] Virus Ab [id number] 05:27:00 Test Item Value Reference Range Interpretation Comments Hepatitis C Virus (HCV) Antibody Negative Negative (test code = 05013-0) Lab Interpretation (test code = Normal 00986-2) [facility]2 Routine [id number] 05:26:00 Test Item Value Reference Range Interpretation Comments HIV Ag/Ab Combo (test code = Negative Negative 34415-7) Lab Interpretation (test code = Normal 82360-7) [facility] ABDOMEN [id number] 19:55:26IMPRESSION:Limited evaluation due to bowel gas and body habitus. In light of this: 1. Cholelithiasiswithout sonographic evidence of acute cholecystitis.2. Hepatomegaly with increased echogenicity of the liver suggestive ofsteatosis. Dictated By: Elia Tobar [...] Ducts: Common bile duct measures 0.6 cm, no dilatationPancreas: Not evaluated due to bowel gas.Right Kidney: Size: 13.8 cm Echogenicity: Normal Parenchymal thickness: Normal Collecting system:No hydronephrosis Stones: None Cyst/Mass: NoneVessels: Aorta: Visualized portions are normal Inferior Vena Cava: Visualized portions are normal Main Portal Vein: 1.4 cm, mildly increased in size size withhepatopetal flow.Free Fluid: No ascites or pleural effusionIMPRESSIONIMPRESSION:Limited evaluationdue to bowel gas and body habitus. In light of this:1. Cholelithiasis without sonographic evidence of acute cholecystitis.2. Hepatomegaly with increased echogenicity of the liver suggestive ofsteatosis.Dictated By: Elia Tobar MD, 02/11/2021 7:46 PMI have reviewed the study and agree with the findings in this report.Signed By: Francis Thompson MD, 02/11/2021 7:55 [facility] [id number] 18:55:00 Test Item Value Reference Range Interpretation Comments Lipase (test code = 21491148) 24 U/L 11-82 Lab Interpretation (test code = Normal 01703-6) [facility] HospitalLiver [id number] 18:55:00 Test Item Value Reference Range Interpretation Comments Bilirubin, Total (test code = 1.5 mg/dL 0.2-1.2 H 2885-2) Alkaline Phosphatase (test code = 44 U/L 34-104 61985645) AST (test code = 39861807) 13 U/L 13-39 Direct Bilirubin (test code = 0.6 mg/dL 0-0.2 H 1968-7) ALT (test code = 19211089) 9 U/L 7-52 Albumin (test code = 51670-6) 3.3 g/dL 3.7-5.3 L Lab Interpretation (test code = Abnormal 71586-8) [facility] HospitalXR CHEST 2 [id number] 18:34:30IMPRESSION: Limited exam. Opacified left lung base could represent atelectasis, pneumonia, and/oreffusion in the appropriate clinical context. Chest CT with contrast canbetter characterize this, if clinically indicated. Dictated By: Percy Cho MD, 02/11/2021 6:00 PM I have reviewed the study and agree with the findings in this report. Signed By: Francis Thompson MD, 02/11/2021 6:34 PM Interface, Rad/Mammog In - 02/11/2021 6:39 PM CDT EXAMINATION: XRAY [...] if clinically indicated.Dictated By: Percy Cho MD, 16:00 PMI have reviewed the study and agree with the findings in this report.Signed By: Francis Thompson MD, 02/11/2021 6:34 PMHarris Ehfmjv90 LEAD [id number] 17:19:2512 LEAD EKG FOR [facility] Test Date: 3945-39-76Mgv Name: GRAZYNA JACOB Department: 5520Patient ID: [id number] Room: Gender: F Inside Sales Coordinator: [id number]: 1975 Requested By: TRI Lira Number: [id number] Colten MD: Mee Vincent MeasurementsIntervals [place] Rate: 78 P: -15PR: 107 QRS: 38QRSD: 109 T: 68QT: 364 QTc: 417 Interpretive StatementsSINUS RHYTHM WITH SHORT [place] INTERVALLOW QRS VOLTAGE IN PRECORDIAL LEADS [QRS DEFLECTION < 1.0 mV IN CHEST LEADS]NONSPECIFICT-WAVE ABNORMALITYElectronically Signed On 02-11-2021 19:11:55 CDT by [employer]12 LEAD [id number] 17:19:2512 LEAD EKG FOR [facility] Test Date: 3071-55-13Fmi Name: GRAZYNA JACOB Department: 5520Patient ID: [id number] Room: Gender: F Inside Sales Coordinator: [id number]: 1975 Requested By: TRI Lira Number: [id number] Reading MD: Mee Vincent MeasurementsIntervals [place] Rate: 78 P: -15PR: 107 QRS: 38QRSD: 109 T: 68QT: 364 QTc: 417 Interpretive StatementsSINUS RHYTHM WITH SHORT [place] INTERVALLOW QRS VOLTAGE IN PRECORDIAL LEADS [QRS DEFLECTION < 1.0 mV IN CHEST LEADS]NONSPECIFICT-WAVE ABNORMALITYElectronically Signed On 02-11-2021 19:11:55 CDT by SaleStreamUC, Urine [id number] 13:48:00 Test Item Value Reference Range Interpretation Comments UC, Urine Culture <10,000 cfu/mL. Lactose (test code = UC) fermenting Gram negative ruben Thermal Count (test >100,000 code = Thermal Count) UC, Urine Culture Proteus mirabilis (test code = UC1.2) Thermal Count (test >100,000 code = Thermal Count) Gram Neg Ur ID and [id number] 13:48:00 Test Item Value Reference Range Interpretation Comments Amikacin (test code = AN) <=16 S Ampicillin (test code = AM) <=8 S Ampicillin/Sulbactam (test code = AMS) <=8/4 S Cefazolin (test code = CZ) <=8 S Cefepime (test code = FEP) <=4 S Cefotaxime (test code = TAX) <=2 S Ceftazidime (test code = SABRINA) <=1 S Ceftriaxone (test code = CTR) <=1 S Cefuroxime (test code = CONY) <=4 S Ciprofloxacin (test code = CIP) <=1 S Gentamicin (test code = GM) <=4 S Levofloxacin (test code = LEV) <=2 S Nitrofurantoin (test code = FD) 64 R Tobramycin (test code = TOB) <=4 S Trimethoprim/Sulfamethoxazole (test > R code = SXT) Piperacillin/Tazobactam (test code = <=16 S TZP) Complete Blood Count Auto [id number] 12:15:00 Test Item Value Reference Range Interpretation Comments White Blood Count (test code = 7.7 x10 3/uL 4.4-10.5 N WBCT) Red Blood Count (test code = 5.11 x10 6/uL 3.75-5.20 N RBC) Hemoglobin (test code = HGBT) 8.4 g/dL 12.2-14.8 L Hematocrit (test code = HCTT) 39.5 % 36.5-44.4 N Mean Corpuscular Volume (test 77.30 fL 80.00-100.00 L code = MCV) Mean Corpuscular Hemoglobin 16.4 pg 27.0-32.5 L (test code = MCH) Mean Corpuscular HGB Conc 21.30 g/dL 32.00-37.50 L (test code = MCHC) RDW Coefficient of Variation 24.0 % 11.5-14.5 H (test code = RDWCV) Platelet Count (test code = 320.0 x10 3/uL 140.0-440.0 N PLTT) Mean Platelet Volume (test 10.2 fL code = MPV) Immature Granulocytes % (Auto) 0.4 % 0.0-5.0 N (test code = IMMGRAN%) Neutrophils % (Auto) (test 78.1 % 36.0-70.0 H code = NE%) Lymphocytes % (Auto) (test 14.4 % 12.0-44.0 N code = LY%) Monocytes % (Auto) (test code 5.4 % 0.0-11.0 N = MO%) Eosinophils % (Auto) (test 1.2 % 0.0-7.0 N code = EO%) Basophils % (Auto) (test code 0.5 % 0.0-2.0 N = BA%) Immature Granulocytes # (Auto) 0.03 x10 3/uL (test code = IMMGRAN#) Neutrophils # (Auto) (test 6.0 x10 3/uL 1.6-7.4 N code = NE#) Lymphocytes # (Auto) (test 1.10 x10 3/uL 0.50-4.60 N code = LY#) Monocytes # (Auto) (test code 0.41 x10 3/uL 0.00-1.20 N = MO#) Eosinophils # (Auto) (test 0.09 x10 3/uL 0.00-0.74 N code = EO#) Basophils # (Auto) (test code 0.04 x10 3/uL 0.00-0.21 N = BA#) nRBC Abs (test code = NRBCA) 0.09 nRBC Pct (test code = NRBCP) 1.2 % Comprehensive Metabolic [id number] 12:15:00 Test Item Value Reference Range Interpretation Comments SODIUM (test code = NA) 140.0 mmol/L 136.0-145.0 N Potassium,K (test code = K) 4.1 mmol/L 3.0-5.1 N Chloride (test code = CL) 102 mmol/L 98-107 N Carbon Dioxide (test code = 34 mmol/L 20-31 H CO2) Anion Gap (test code = GAP) 4 mmol/L 5-15 L Blood Urea Nitrogen (test code 9 mg/dL 9-23 N = BUN) Creatinine (test code = CREATT) 0.61 mg/dL 0.55-1.02 N Creatinine Clr Calc Pharmacy 236.28 mL/min (test code = CRCLPHA) Estimated GFR ( Paulina > 60 mL/min/1.73m2 (test code = EGFRAA) Estimated GFR (Non Afr Paulina > 60 mL/min/1.73m2 (test code = EGFRNAA) BUN/Creatinine Ratio (test code 15 ratio 10-20 N = BCRATIO) Glucose (test code = GLU) 112 mg/dL 74-106 H Osmolality,Calculated (test 289.2 code = OSMOC) Calcium (test code = CA) 8.8 mg/dL 8.3-10.6 N Bilirubin,Total (test code = 1.4 mg/dL 0.2-1.1 H BILIT) Aspartate Amino Transferase 20 U/L 0-34 N (test code = AST) Alanine Aminotransferase (test 12 U/L 10-49 N code = ALT) Total Protein (test code = TP) 7.9 g/dL 5.7-8.2 N Albumin Level (test code = ALB) 3.8 g/dL 3.2-4.8 N Globulin (test code = GLOB) 4.1 mg/dL 2.3-3.5 H Albumin/Globulin Ratio (test 0.9 ratio 0.8-2.0 N code = AGRATIO) Alkaline Phosphatase (test code 56 U/L 46-116 N = ALP) [id number] 12:15:00 Test Item Value Reference Range Interpretation Comments Lipase (test code = LIP) 32 U/L 12-53 N HCG, Serum Qual (LAB)2021-02-11 12:15:00 Test Item Value Reference Range Interpretation Comments HCG, Serum Qual (LAB) (test code = Negative Negative HCGQ) UA, Urinalysis Rflx Cult/[id number] 12:09:00 Test Item Value Reference Range Interpretation Comments Color,Urine (test code = Amalia Yellow A UCOL) Clarity,Urine (test code = Slightly Cloudy Clear A UCLAR) PH,Urine (test code = UPH.XX) 5.5 5.5-8.5 Specific Amity,Urine (test 1.020 1.005-1.030 N code = USG) Blood,Urine (test code = Large cells/uL Negative A UBLD) Protein,Urine (test code = 30 mg/dL Negative A UPRO) Glucose,Urine (UA) (test code Negative mg/dL Negative = UGLU) Ketones,Urine (test code = Trace mg/dL Negative A UKET) Nitrate,Urine (test code = Positive Negative A UNIT) Bilirubin,Urine (test code = Small mg/dL Negative A UBIL) Urobilinogen,Urine (test code 1.0 mg/dL Negative = UURO) Leukocyte Esterase,Urine Small cells/uL Negative A (test code = ULEU) Ictotest,[id number] 12:09:00 Test Item Value Reference Range Interpretation Comments Ictotest,Urine (test code = Confirm Negative Confirm Neg UICTO) Urine [id number] 12:09:00 Test Item Value Reference Range Interpretation Comments RBC,Urine (test code = URBC.XX) 31-40 /HPF None Seen A WBC,Urine (test code = UWBC.XX) 2-5 /HPF None Seen Squamous Epithelial Cell,Urine 3-5 /HPF None Seen (test code = USQEPI.XX) Bacteria,Urine (test code = Moderate /HPF None Seen A UBACT) Mucus,Urine (test code = UMUC) Many /LPF None Seen A
[2022-08-18 11:47] LABS: Potassium 3.7 mmol/L (3.5-5.1)
[2022-08-18 12:30] LABS: Absolute Lymphocytes (CBC) 2.2 K/uL (0.7-4.9); Hematocrit 14.9 % (36.0-45.0); Lymphocytes % 18.2 % (15.3-44.8); MCV 71.3 fL (80-100); MPV 8.4 fL (7.6-11.3); RBC Red Blood Cell Count 2.09 M/uL (3.86-4.86)
[2022-08-18] MEDS ORDERED: NACHLORIDE 0.45% 0 ML IV ONE (13:42)
[2022-08-18] MEDS ORDERED: NA CHLORIDE 0.9% 1,000 ML ONE ×2 (13:43→15:11)
[2022-08-18 14:12] LABS: Anisocytosis 2+; Blood Morphology Comment NOTED (NOT SEEN); Hypochromasia 2+; Platelet Estimate ADEQ; White Blood Cell Scan OK (OK)
--- NOTE | 2022-08-18 15:28 | EDPHYS ---
Physician Documentation [facility] Name: Charity Jacob Age: 47 yrs Sex: Female : 1975 Arrival Date: 08/18/2022 Time: 10:22 Bed 5 Private MD: ED Physician Vignesh Parker HPI: 08/18 12:49 This 47 yrs old Female presents to ER via Wheelchair with complaints of kb Vaginal Bleeding, Weakness. 12:49 The patient presents with vaginal bleeding that is moderate, heavy. Onset: The kb symptoms/episode began/occurred 1 month(s) ago. The patient has not recently seen a physician. 14:56 Modifying factors: The symptoms are alleviated by nothing, the symptoms are aggravated kb by nothing. Associated signs and symptoms: Pertinent positives: vaginal bleeding. Severity of symptoms: At their worst the symptoms were moderate, in the emergency department the symptoms have resolved. The patient's method of control includes BCP. The patient has experienced similar episodes in the past. Pt reports she has abnormal periods due to PCOS. States they have been heavy in the past and she has had to get blood transfusions. States she has had vaginal bleeding for one month this time and stopped bleeding last night. States she came in due to lightheadedness, weakness, fatigue and increased shortness of breath. States she feels like she needs a blood transfusion. Pt sees Dr Rahman in [place] and was started on control pills one month ago for this, but they haven't helped. 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 - Social history:: Smoking status: Patient/guardian denies using tobacco, the patient reports quitting approximately 2 years ago. ROS: 12:47 Constitutional: Negative for fever, chills, and weight loss. kb 12:47 Constitutional: Positive for fatigue. 12:47 Respiratory: Positive for dyspnea on exertion. 12:47 : Positive for vaginal bleeding. 12:47 Neuro: Positive for weakness. 12:47 All other systems are negative. Exam: 12:48 Head/Face: Normocephalic, atraumatic. ENT: Moist Mucous membranes Cardiovascular: kb Regular rate and rhythm with a normal S1 and S2. No gallops, murmurs, or rubs. No pulse deficits. Respiratory: Respirations even and unlabored. No increased work of breathing. Talking in full sentences Abdomen/GI: Soft, non-tender. No distention Skin: Warm, dry with normal turgor. Normal color. MS/ Extremity: Pulses equal, no cyanosis. Neurovascular intact. Full, normal range of motion. Neuro: Awake and alert, GCS 15, oriented to person, place, time, and situation. Moves all extremities. Normal gait. 12:48 Constitutional: The patient appears alert, awake, pale. Vital Signs: 11:00 BP 118 / 85; Pulse 105; Resp 20; Temp 98.8; Pulse Ox 95% on 4 lpm NC; Height 5 ft. 7 ll1 in. (170.18 cm); Pain 0/10; 12:08 BP 101 / 60; Pulse 101; Resp 20; Pulse Ox 100% ; kr3 14:05 kr3 14:35 kr3 16:24 BP 111 / 65; Pulse 91; Resp 20; Pulse Ox 100% on NC; kr3 14:05 transfusion started see flowsheet for further vitals kr3 14:35 went in to assess 30 minute transfusion vitals, blood bag leaking transfusion stopped kr3 MDM: 10:54 Patient medically screened. kb 12:49 Data reviewed: vital signs, nurses notes. Data interpreted: Pulse oximetry: on room air kb is 100 %. Interpretation: normal. 13:39 Physician consultation: Yuriy Lazar MD was contacted at 13:39, regarding consult, kb patient's condition, after a discussion of the case, a recommendation for transfer for higher level of care is made. 13:39 Physician consultation: Yuriy Lazar MD was contacted at 13:43, and will see patient kb in ED, pt does not want to be transferred at this time. 15:03 Counseling: I had a detailed discussion with the patient and/or guardian regarding: the kb historical points, exam findings, and any diagnostic results supporting the discharge/admit diagnosis, lab results, radiology results, the need for further work-up and treatment in the hospital. 15:24 ED course: Dr Lazar accepts pt to [facility]. States he wants first unit of blood kb transfused before pt is moved up. 08/18 10:54 Order name: CBC with Diff kb 08/18 10:54 Order name: Basic Metabolic Panel kb 08/18 10:54 Order name: Type And Screen kb 08/18 11:47 Order name: Basic Metabolic Panel; Complete Time: 11:50 EDMS 08/18 12:34 Order name: CBC with Automated Diff; Complete Time: 14:15 EDMS 08/18 12:35 Order name: Type and Screen EDMS 08/18 10:54 Order name: IV Start; Complete Time: 11:06 kb 08/18 11:30 Order name: Labs - recollect needed: recollect type and screen, reband pt, time and bd date label; Complete Time: 11:37 08/18 12:38 Order name: Bb Add On bd 08/18 12:44 Order name: US Transvaginal Study (Probe) kb 08/18 14:13 Order name: CBC Smear Scan; Complete Time: 14:15 EDMS 08/18 15:27 Order name: SARS-COV-2 Antigen Rapid kb 08/18 15:53 Order name: SARS-COV-2 Antigen Rapid; Complete Time: 15:54 EDMS Administered Medications: No medications were administered Disposition: 17:28 PA/CUSTOMER SERVICE ENGINEER's history reviewed, patient interviewed, and examined. I agree with assessment jr11 and care plan and confirm the diagnosis (es) above. Attestation: The patient's history, exam findings, diagnostics, and a summary of any interventions or procedures was reviewed in detail with Jacquelin MANN. Disposition Summary: 08/18/22 15:28 Hospitalization Ordered Hospitalization Status: Observation kb Provider: Yuriy Lazar Location: Telemetry/MedSur (observation) kb Condition: Stable kb Problem: new kb Symptoms: are unchanged kb Bed/Room Type: Standard kb Room Assignment: 409(08/18/22 17:08) bd Diagnosis - Anemia, unspecified kb - Abnormal uterine and vaginal bleeding, unspecified kb Forms: - Medication Reconciliation Form kb - SBAR form kb Signatures: Dispatcher [employer] EDMS Jacquelin Jansen FNP-C FNP-Elizabeth Abernathy Lynsay, RN RN ll1 Vignesh Parker MD MD jr11 Corrections: (The following items were deleted from the chart) 17:08 15:28 kb bd
--- NOTE | 2022-08-18 15:28 | ER ---
Nurse's Notes [facility] Name: Charity Jacob Age: 47 yrs Sex: Female : 1975 Arrival Date: 08/18/2022 Time: 10:22 Bed 5 Private MD: Diagnosis: Anemia, unspecified;Abnormal uterine and vaginal bleeding, unspecified Presentation: 08/18 11:00 Chief complaint: Patient states: Heavy vaginal bleeding with clots for 1 month. Feels ll1 weak, fatigued, and more SOB than usual. Coronavirus screen: Vaccine status: Patient reports receiving the 1st dose of the Covid vaccine. Client denies travel out of the [place] in the last 14 days. difficulty breathing, fatigue, shortness of breath, Client presents with at least one sign or symptom that may indicate coronavirus-19. Standard/surgical mask placed on the client. Ebola Screen: Patient denies travel to an Ebola-affected area in the 21 days before illness onset. Initial Sepsis Screen: Does the patient meet any 2 criteria? No. Patient's initial sepsis screen is negative. Does the patient have a suspected source of infection? Yes: Other: vaginal bleeding. Risk Assessment: Do you want to hurt yourself or someone else? Patient reports no desire to harm self or others. Onset of symptoms was July 19, 2022. 11:00 Method Of Arrival: Wheelchair ll1 11:00 Acuity: MAIKEL 3 ll1 Triage Assessment: 11:01 General: Appears ill, Behavior is cooperative, appropriate for age. Pain: Denies pain. ll1 Neuro: Reports weakness. Cardiovascular: Reports fatigue, shortness of breath. Respiratory: Reports shortness of breath. : Reports vaginal bleeding that is with clots, moderate flow. ASSOCIATE QUALITY ENGINEER: 19:22 LMP N/A - control method kr3 Historical: - Allergies: 10:59 PENICILLINS; ll1 - PMHx: 10:59 a fib; CHF; lymphedema; PCOS; CVA; ll1 - Immunization history:: Client reports receiving the 1st dose of the Covid vaccine. - Social history:: Smoking status: Patient/guardian denies using tobacco, the patient reports quitting approximately 2 years ago. Screenin:10 Fall Risk IV access (20 points). Ambulatory Aid- Furniture (30 pts.). Total Sweeney Fall kr3 Scale indicates High Risk Score (45 or more points). Fall prevention measures have been instituted. Side Rails Up X 2. 19:20 Abuse screen: Denies threats or abuse. Nutritional screening: No deficits noted. kr3 Tuberculosis screening: No symptoms or risk factors identified. Assessment: 11:51 Reassessment: No changes from previously documented assessment. Patient and/or family kr3 updated on plan of care and expected duration. Pain level reassessed. 19:21 : Urine is blood tinged. kr3 Vital Signs: 11:00 BP 118 / 85; Pulse 105; Resp 20; Temp 98.8; Pulse Ox 95% on 4 lpm NC; Height 5 ft. 7 ll1 in. (170.18 cm); Pain 0/10; 12:08 BP 101 / 60; Pulse 101; Resp 20; Pulse Ox 100% ; kr3 14:05 kr3 14:35 kr3 16:24 BP 111 / 65; Pulse 91; Resp 20; Pulse Ox 100% on NC; kr3 14:05 transfusion started see flowsheet for further vitals kr3 14:35 went in to assess 30 minute transfusion vitals, blood bag leaking transfusion stopped kr3 ED Course: 10:22 Patient arrived in ED. rg4 10:35 Jacquelin Jansen FNP-C is PHCP. kb 10:35 Vignesh Parker MD is Attending Physician. kb 10:52 Arm band placed on Patient placed in an exam room, on a stretcher. kr3 10:58 Katharina Colón, RULA is Primary Nurse. kr3 11:01 Triage completed. ll1 11:05 Inserted saline lock: 20 gauge in right antecubital area, using aseptic technique. kr3 Blood collected. 11:49 Type And Screen Sent. kr3 11:49 Basic Metabolic Panel Sent. kr3 11:49 CBC with Diff Sent. kr3 13:30 Consent for blood and/or blood product transfusion signed by patient. kr3 13:43 Bb Add On Sent. kr3 15:28 Yuriy Lazar MD is Hospitalizing Provider. kb 19:21 No provider procedures requiring assistance completed. Patient admitted, IV remains in kr3 place. 19:22 Placed in gown. Bed in low position. Call light in reach. Side rails up X 1. kr3 Administered Medications: No medications were administered Medication: 19:22 VIS not applicable for this client. kr3 Outcome: 15:28 Decision to Hospitalize by Provider. kb 18:41 Patient left the ED. kr3 19:21 Admitted to Med/surg accompanied by nurse, via wheelchair, with oxygen, with chart, kr3 Report called to RULA Jones 19:21 Condition: stable 19:21 Instructed on the need for admit. Signatures: Jacquelin Jansen, NOC TECHNICIAN-C NOC TECHNICIAN-Paige Powers rg4 Ulises Urena RN RN ll1 Katharina Colón RN RN kr3 Corrections: (The following items were deleted from the chart) 11:06 11:00 BP 118 / 85; Pulse 51bpm; Resp 20bpm; Pulse Ox 95% 4 lpm Nasal Cannula; Temp ll1 98.8F; Height 5 ft. 7 in.; Pain 0/10; ll1
[2022-08-18 15:53] LABS: SARS-CoV-2 Antigen Rapid Res Negative (Negative)
[2022-08-18] MEDS ORDERED: ESTROGENS,CONJ 25 MG IV IV SCH (17:00)
[2022-08-18] MEDS ORDERED: ACETAMINOPHEN 160 MG/5 ML UCUP PO PRN (18:00)
[2022-08-18] MEDS ORDERED: D5LR 1,000 ML IV SCH (18:00)
[2022-08-18] MEDS ORDERED: TRANEXAMIC ACID 1,000 MG in NA CHLORIDE 0.9% 50 ML IV ONE ×2 (18:00→20:12)
[2022-08-18] MEDS ORDERED: Ringers Lactate 1,000 ML IV SCH (18:00)
--- NOTE | 2022-08-18 19:13 | CON ---
Charity Jacob is a 47-year-old female, severe dysfunctional bleeding. The patient said she h as had this problem for some time, sees Dr. Rahman as her communications planner in [place], who has discussed putting her on an IUD. She is currently on control pills. She has a history of stroke. She h as a history of congestive heart failure. She says her bleeding actually stopped last night, but she feels lightheaded, so she came in to our emergency room. Hemoglobin is about 4.8. Her pulse is 101 and she does not allow any type of pelvic exam. I have discussed the situation with the patient. S he knows that she should have an endometrial biopsy because even though she is on Eliquis which can c ause heavier periods and she has a history of polycystic ovarian syndrome, she knows that another pro blem because of her size could be endometrial hyperplasia or even endometrial cancer. Dr. Rahman has discussed putting in IUD, which I think would be an excellent possible aid to help with her bleeding problems. We have discussed the situation because she is high risk and has already established a rel ationship with a communications planner in [place]. We will type and cross her for 2 units, start the first u nit, get that mostly and then affect transfer if they will accept her. If not, we will put her in [facility] for overnight observation. If she starts bleeding, we will try tranexamic acid to stay away from anything that would influence the biopsy report, but she knows this is only a temporary me asure and that the Mirena I think is the best long-term solution, possibly even if she has to have jacobson rgery, endometrial ablation, but she and Dr. Rahman will determine what is the best course of action. Right now, she is quite stable and alert, very pleasant, knows my daughter and has agreed that she s hould probably see her doctor in [place] as soon as we get her stable enough to transfer. BLAKE/GIA Voice ID: [id number] Report ID: [id number]
[2022-08-18] MEDS ORDERED: ESTROGENS,CONJ 25 MG IV IV ONE (20:13)
[2022-08-18] MEDS: Ringers Lactate 1,000 ML IV SCH (20:37)
[2022-08-18] MEDS ORDERED: ESTROGENS,CONJ 25 MG IV ONE (20:41)
[2022-08-18] MEDS ORDERED: TRANEXAMIC ACID 1,000 MG/10 ML VIAL IV ONE (20:55)
[2022-08-18] MEDS ORDERED: NA CHLORIDE 0.9% 250 ML ONE (21:15)
[2022-08-18] MEDS ORDERED: NA CHLORIDE 0.9% 0 ML ONE (21:15)
[2022-08-18] MEDS ORDERED: WATER FOR INJ,STERILE 10 ML ONE (21:29)
[2022-08-18] MEDS ORDERED: ONDANSETRON 4 MG/2 ML VIAL IV PRN (23:28)
[2022-08-18] MEDS ORDERED: ACETAMINOPHEN 500 MG TAB PO PRN (23:28)
[2022-08-18] MEDS: AMIODARONE HCL 200 MG TAB PO SCH (23:30)
[2022-08-18] MEDS: GABAPENTIN 100 MG CAP PO SCH (23:30)
[2022-08-19 00:36] VITALS: BMI 65.7
[2022-08-19] MEDS ORDERED: D5LR 1,000 ML IV SCH ×2 (03:00→17:00)
[2022-08-19 04:05] LABS: Lymphocytes % 21.9 % (15.3-44.8); MCV 74.4 fL (80-100); MPV 8.3 fL (7.6-11.3); RBC Red Blood Cell Count 2.18 M/uL (3.86-4.86)
[2022-08-19 04:14] LABS: Magnesium 2.2 mg/dL (1.8-2.4); Phosphorus 2.6 mg/dL (2.5-4.9)
[2022-08-19 04:20] LABS: Hematocrit 16.2 % (36.0-45.0)
[2022-08-19] MEDS ORDERED: NA CHLORIDE 0.9% 250 ML ONE ×2 (05:52→16:40)
[2022-08-19] MEDS: AMIODARONE HCL 200 MG TAB PO SCH ×2 (09:00→20:49)
[2022-08-19] MEDS: FUROSEMIDE 20 MG TABLET PO SCH (09:00)
[2022-08-19] MEDS: GABAPENTIN 100 MG CAP PO SCH ×2 (09:00→20:02)
[2022-08-19] MEDS ORDERED: INFLUENZA VACCINE (for 6+ mo) 0.5 ML DOSE IMVAC ONE (09:00)
[2022-08-19] MEDS: METOPROLOL XL 25 MG TAB PO SCH (09:00)
[2022-08-19] MEDS: POTASSIUM CL SA 10 MEQ TAB PO SCH (09:50)
--- NOTE | 2022-08-19 11:34 | PN ---
The patient was admitted to the fourth floor. She said she had no bleeding for more than 18 to 20 ho urs, but then last night apparently at 7 o'clock, passed 3 or 4 small blood clots. The patient was g iven tranexamic acid 1 g. Subsequently, also given 50 mg of Premarin IV. This morning, her bleeding is minimal. She says that no further clot. She was given 2 units of blood, her hemoglobin went up about [address] Kay has ordered 2 more units of blood and I think that is a reasonable thing to do. The patient is being seen by PHYSICIAN COMPENSATION ANALYST in [place] who works out at [place]. She has an appointment to see that doctor tomorrow. I think that if we can get her blood count up and keep t hat appointment, she needs a biopsy and knows that she needs to get the biopsy fairly soon. Otherwis e, the Premarin she was given might alter the pathology. She and Dr. Rahman, her sap project manager, have d iscussed putting in the Mirena IUD, which I think will be an excellent thing to do. Because she is h igh risk, I feel that [facility] would be [facility] to that and can be handled in the clinic. She is in agreement with this and we will see what we can do today to get her blood count up. She has not really ambulated. I ordered SCD hose to be put on, then she needs to at least be set up beside the bed to see if she is symptomatic. She says she was lightheaded prio r to coming in, but feels a lot better this morning. We still need to get her blood count up. I thi nk clearly 7 before she can be dismissed to see Dr. Rahman tomorrow. I will talk to Dr. Kay about t his plan. If we cannot get it under control, I think she needs to be transferred to [facility]. BLAKE/GIA Voice ID: [id number] Report ID: [id number]
[2022-08-19 14:03] LABS: Hematocrit 18.6 % (36.0-45.0)
[2022-08-19] MEDS: Ringers Lactate 1,000 ML IV SCH (15:57)
[2022-08-19] MEDS ORDERED: Ringers Lactate 1,000 ML IV SCH (17:00)
--- NOTE | 2022-08-19 18:08 | P.CNS ---
Date of Consult: 08/19/22 Reason for Consult: Anemia Requesting Physician: Stacey Lazar Chief Complaint: Lightheadedness History of Present Illness: 47-year-old morbidly obese woman with a history of congestive heart failure, atrial fibrillation on Eliquis, last dose of Eliquis was yesterday morning, history of dysfunctional uterine bleeding presented to the emergency department with a complaint of lightheadedness. Patient reported 1 month of vaginal blee ding. She reports prior episodes of menorrhagia requiring blood transfusions. Patient follows with Dr. Rahman and has an appointment with her tomorrow for IUD, in the meantime she was taking oral contraceptives for the uterine bleed. Hemoglobin checked in the ED was 4. Patient was given 3 units PRBC transfusion which brought her hemoglobin up to 5.5. Patient admitted to REHAB[facility] Dr. Lazar's service. Hospitalist service consulted to assist with management of her anemia. Patient denies any complaint. She denies shortness of breath. She denies any pelvic pain. No report of fever, or nausea or vomiting. She reports no bleeding since last night. Allergies Penicillins Allergy (Verified 04/05/22 15:37) Hives/Rash Home Medications: Amiodarone HCl [Cordarone*] 200 mg PO BID 03/29/22 Gabapentin [Neurontin*] 100 mg PO BID 03/29/22 Metoprolol Succinate [Toprol Xl*] 25 mg PO DAILY 03/29/22 Sacubitril/Valsartan [Entresto 24 mg-26 mg Tablet] 0.5 tab PO BID 03/29/22 Apixaban [Eliquis] 2.5 mg PO BID #60 04/15/22 Cranberry Fruit Extract 400 mg PO BID cap 04/15/22 Furosemide [Lasix*] 20 mg PO DAILY #30 tab 04/15/22 Potassium Oral Tab [Klor-Con 10 mEq Tab*] 20 meq PO DAILY #60 tab 04/15/22 - Past Medical/Surgical History Diabetic: Yes -: afib/aflutter; heart failure -: HTN -: HLD -: morbid obesity -: DM -: asthma; respiratory failure -: CARLOS -: anxiety -: stage 2 decubitus ulcer L buttocks -: CHF -: fibromyalgia -: PCOS -: cornea transplant Psychosocial/ Personal History: Unable to obtain - Family History No known history of bleeding disorder in her family. Family History: Reviewed- Non-Contributory Notes: No known family history of bleeding disorder - Social History Smoking Status: Unknown if ever smoked Alcohol use: No CD- Drugs: No Caffeine use: No Place of Residence: Home Review of Systems Other: Except as documented, all other systems reviewed and negative. Physical Examination Temp Pulse Resp BP Pulse Ox 97.8 F 95 H 14 111/60 100 08/19/22 16:00 08/19/22 16:00 08/19/22 16:00 08/19/22 16:00 08/19/22 16:00 General: Alert, In no apparent distress, Oriented x3, Obese HEENT: Normocephalic, Mucous membr. moist/pink, Sclerae nonicteric Neck: Supple, JVD not distended, No Thyromegaly Respiratory: Clear to auscultation bilaterally, Normal air movement Cardiovascular: No edema, Normal S1 S2, No murmurs, Irregular heart rate/rhythm Capillary refill: <2 Seconds Gastrointestinal: Normal bowel sounds, Soft and benign, Non-distended, No tenderness Musculoskeletal: No swelling, No tenderness Integumentary: No rashes, No erythema, No cyanosis Neurological: Normal speech, Normal strength at 5/5 x4 extr, Cranial nerves 3-12 intact Lymphatics: No axilla or inguinal lymphadenopathy Laboratory Data (last 24 hrs) 08/19/22 13:45: Hgb 5.5 L* D, Hct 18.6 L* 08/19/22 03:29: Sodium 140, Potassium 4.0, BUN 12, Creatinine 0.71, Glucose 103, Phosphorus 2.6, Magnesium 2.2 08/19/22 03:29: WBC 9.30, Hgb 5.0 L* D, Hct 16.2 L*, Plt Count 254 D - Problems (1) Acute blood loss anemia Current Visit: Yes Status: Acute (2) Dysfunctional uterine bleeding Current Visit: Yes Status: Acute (3) Chronic atrial fibrillation Current Visit: Yes Status: Acute Conclusions/Impression: Status post 3 units PRBC transfusion. Status post tranexamic acid. The effect of Eliquis should have lasted by now. Greater than 24 hours. Would recommend 2 more units for target hemoglobin of 7. Check posttransfusion hemoglobin. Given history of CHF hold recommend IV Lasix in between blood transfusions. Discontinue IV fluid. Eliquis is on hold. Continue amiodarone and metoprolol for A. fib.
--- NOTE | 2022-08-19 20:49 | PN ---
Subjective: Patient has now had 4 units of blood, says she feels better. She has ambulated. No ble eding whatsoever she says. She has an appointment to see Dr. Rahman to possibly have an IUD inserted tomorrow, which I think would be a good idea. We have even discussed ablation and even hysterectomy, but she knows because of her medical condition, her extreme obesity, heart failure, and previous str ambrosio that she would be at very significant anesthetic rest and anything that can be done in the office such as placing an IUD would be preferable to surgery. This is of course completely between she and Dr. Rahman. I stressed numerous times today and yesterday that she needs to make certain that she fo llows up with Dr. Rahman without fail. She says she would. She is a very pleasant patient. Final Diagnosis: Severe dysfunctional bleeding. 4 units blood, tranexamic acid, Premarin IV. Bleed ing now has stopped temporarily. Blood count should be up in the 7 range from 4.8 on admission. BLAKE/GIA Voice ID: [id number] Report ID: [id number]
[2022-08-19 20:57] VITALS: O2SAT 97
[2022-08-19] MEDS ORDERED: METOPROLOL TARTRATE 5 MG/5 ML INJ IV STA (21:02)
[2022-08-19] MEDS ORDERED: METOPROLOL TARTRATE 5 MG/5 ML INJ IV ONE (21:05)
[2022-08-20 01:33] VITALS: TEMP 97.9
[2022-08-20 03:16] LABS: Hematocrit 20.4 % (36.0-45.0)
--- NOTE | 2022-08-20 05:25 | PN ---
The patient is receiving units #4 and then subsequently #5. Her bleeding is 0 at this point. She sa ys she feels good. Does not want to be transferred to [facility]. She has an appointment with Dr Sherri Rahman, who works at [facility] tomorrow 1 p.m., in [place] office. I told her that if she is d oing well, we will dismiss her around 8 or 9 in the morning and I would go straight to Dr. Rahman's of [facility] and have them work her in, instead of waiting until 1 o'clock. The patient is agreeable to this and noted she had a pulse of 145, but she has atrial fib and it is not related to blood loss. Her c olor looks good. She says she feels good and she says she has absolutely no bleeding. I think it is reasonable to not transfer the patient at this point and hopefully, will get her hemoglobin up to at least 7, so that we feel comfortable letting her go in the morning. BLAKE/GIA Voice ID: [id number] Report ID: [id number]
[2022-08-20] MEDS ORDERED: NA CHLORIDE 0.9% 250 ML ONE (05:49)
--- NOTE | 2022-08-20 07:49 | EKG ---
Test Date: 2022-08-19 Test Time: 21:14:20 Reception Specialist: SREG MEASUREMENT RESULTS: Intervals: Rate: 104 NV: 148 QRSD: 102 QT: 332 QTc: 436 [place]: P: 81 NV: 148 QRS: 63 T: 85 INTERPRETIVE STATEMENTS: Sinus tachycardia Low voltage QRS Nonspecific ST and T wave abnormality Abnormal ECG Compared to ECG 03/10/2022 17:53:25 ST (T wave) deviation now present Atrial fibrillation no longer present T-wave abnormality no longer present Electronically Signed On 08-20-22 07:48:04 CDT by Sav Domínguez
[2022-08-20 08:31] VITALS: BP 128/67
[2022-08-20] MEDS: FUROSEMIDE 20 MG TABLET PO SCH (08:43)
[2022-08-20] MEDS: METOPROLOL XL 25 MG TAB PO SCH (08:43)
[2022-08-20] MEDS: AMIODARONE HCL 200 MG TAB PO SCH (08:44)
[2022-08-20] MEDS: GABAPENTIN 100 MG CAP PO SCH (08:44)
[2022-08-20] MEDS: POTASSIUM CL SA 10 MEQ TAB PO SCH (08:44)
[2022-08-20 09:11] LABS: Hematocrit 22.3 % (36.0-45.0)
--- NOTE | 2022-08-20 12:31 | PN ---
This morning, her hemoglobin 6.2; however, was told yesterday afternoon that the hospitalist has orde red 2 more units of blood be given and apparently that was not done until early this morning. She is only on her fourth unit now. Bleeding is minimal according to the patient. She has an appointment to see her physician in [place] at 1 o'clock today. If we can get in at least 1 unit, I think I fee l comfortable letting her go home since she says her bleeding is minimal. We will get the blood in a s soon as possible and see what the situation is and then decide. BLAKE/GIA Voice ID: [id number] Report ID: [id number]
--- NOTE | 2022-08-21 12:01 | DS ---
Date of Discharge: 08/20/2022 Hospital Course: A 47-year-old female, admitted through the emergency room with severe uterine bleed ing and significant anemia. The patient was seen in emergency room. Said she had not been bleeding for over 20 hours, but she felt lightheaded and had been bleeding off and on significantly during the last 3 weeks. Has been seen by Dr. Rahman in [facility]. She is associated with [facility]. They had developed a plan to put in an IUD to try to control the bleeding. The patient came to our emergency room, was noted to have admission hemoglobin of 4 and hematocrit of 14, pulse was in the 1 00 range. She was offered to be transferred to [facility], but said she did not wish to go. Was admitted to our facility and over the next 2 days received a total of 5 units of packed cells. Durin g this time, she was given 1 g of tranexamic acid and 50 mg of Premarin. Her bleeding was minimal du ring this time. She passed a few little clots, but according to the patient and nurses, no significa nt bleeding. After 5 units, her hemoglobin was 7.1. She was stable. She had an appointment to see her doctor in [facility] at 0150 the same day and was dismissed in the care of her mother to be taken to the clinic for followup. Final Diagnoses: Severe dysfunctional uterine bleeding, blood transfusion, administration of tranexa emili acid and Premarin. Followup at [facility] in [place]. BLAKE/GIA Voice ID: [id number] Report ID: [id number]
== END 2022-08-20 11:25 | disposition home or self-care (01) | DRG 760 ==
LOC: ER 10:20 → ERHOLD 15:29 → 4TH 18:05 → OBSVTOIN 08-19 15:54
PROVIDERS: ADMIT Specialist; ATTEND Specialist
PROC: 30233N1 Transfusion of Nonautologous Red Blood Cells into Peripheral Vein, Percutaneous Approach (ICD-10-PCS; principal; 2022-08-18)
DX: N93.8 Other specified abnormal uterine and vaginal bleeding (principal); Z68.44 Body mass index [BMI] 60.0-69.9, adult; D62 Acute posthemorrhagic anemia; I48.20 Chronic atrial fibrillation, unspecified; E28.2 Polycystic ovarian syndrome; I10 Essential (primary) hypertension; M79.7 Fibromyalgia; E78.5 Hyperlipidemia, unspecified; E66.01 Morbid (severe) obesity due to excess calories; Z88.0 Allergy status to penicillin; Z94.7 Corneal transplant status; Z86.73 Personal history of transient ischemic attack (TIA), and cerebral infarction without residual deficits; Z79.01 Long term (current) use of anticoagulants; Z87.891 Personal history of nicotine dependence; Z28.311 Partially vaccinated for COVID-19; Z79.899 Other long term (current) drug therapy; Z20.822 Contact with and (suspected) exposure to COVID-19
CPT/HCPCS: 36415; 36430; 80048; 83735; 84100; 85014; 85018; 85025; 86850; 86900; 86901; 87811; 93005; 99285; G0378; J1410; J7030; J7050; J7120; J7121; P9016

== ENCOUNTER 2023-09-05 03:48 | Emergency (ER) | payer BC ==
--- OUTSIDE RECORDS SUMMARY | 2023-09-05 03:57 | XMS REPORT | Continuity of Care Document ---
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 [facility] Health MAGNESIUM 2021-05-22 03:29:00 Lachelle Saunders alth CBC 2021-05-22 03:29:00 Lachelle Saunders alth PTT 2021-05-22 00:07:00 Ernesto Childs [facility] 12 LEAD EKG 2021-05-21 17:44:55 Ernesto Childs [facility] URINALYSIS W/REFLEX TO 2021-05-21 17:44:00 Ernesto Childs [facility] URINE CULTURE URINALYSIS 2021-05-21 17:44:00 Ernesto Childs [facility] D-DIMER 2021-05-21 17:43:00 AmadeoErnesto maddox [facility] PTT 2021-05-21 17:43:00 Ernesto Childs [facility] MAGNESIUM 2021-05-21 17:42:00 Ernesto Childs BASIC METABOLIC PANEL 2021-05-21 17:42:00 Ernesto Childs [facility] INFUSION PUMP 2021-05-21 08:57:25 Ernesto Childs [facility] ECHG NON-INVASIVE PROC 2021-05-21 06:37:[address] [facility] ECHOCARDIOGRAM 2-D W/O CONTRAST (PROSOLVE) CBC/DIFF 2021-05-21 04:27:00 Lachelle Saunders alth BASIC METABOLIC PANEL 2021-05-21 04:27:00 Lachelle Saunders [facility] MAGNESIUM 2021-05-21 04:27:00 Lachelle Saunders alth HEMOGLOBIN A1C 2021-05-21 04:27:00 Lachelle Saunders alth LIPID PROFILE 2021-05-21 04:27:00 Lachelle Saunders alth CBC 2021-05-21 04:27:00 Lachelle Saunders alth SARS-COV-2, FLU A/B, RSV 2021-05-20 19:12:00 Lachelle Saunders [facility] CORONAVIRUS, COVID-19, 2021-05-20 19:12:00 Lachelle Saunders [facility] MARIANNE XRAY CHEST 1 VIEW 2021-05-20 15:57:39 Param Valentin alth Meghan 12 LEAD EKG 2021-05-20 15:54:38 Param Valentin [facility] Meghan CBC/DIFF 2021-05-20 15:32:00 Param Valentin [facility] BASIC METABOLIC PANEL 2021-05-20 15:32:00 Karena Valentin [facility] TROPONIN I 2021-05-20 15:32:00 Param Valentin [facility] B-TYPE NATRIURETIC 2021-05-20 15:32:00 Parma Valentin ealth PEPTIDE (BNP) [facility] CBC 2021-05-20 15:32:00 Param Valentin [facility] THYROID STIMULATING 2021-05-20 15:32:00 Param Valentin [facility] HORMONE (TSH) Meghan FREE T4 2021-05-20 15:32:00 Param Valentin [facility] BETA-HCG, QUANTITATIVE 2021-05-20 15:32:00 Loren Valentin [facility] CREATININE POC 2021-05-20 15:32:00 Unknown, Provider Param Lovett [facility] VBG POC 2021-05-20 15:32:00 Unknown, Provider [facility] BMP POC 2021-05-20 15:32:00 Unknown, Provider [facility] TROPONIN I POC 2021-05-20 15:31:00 Unknown, Provider [facility] 12 LEAD EKG 2021-05-20 15:23:06 Param Valentin Meghan GLUCOSE POC 2021-02-19 13:05:00 Marbella Allan ealth GLUCOSE POC 2021-02-19 09:08:00 Marbella Allan H ealth MAGNESIUM 2021-02-19 03:59:00 John Hastings [facility] PHOSPHORUS 2021-02-19 03:59:00 John Hastings [facility] BASIC METABOLIC PANEL 2021-02-19 03:59:00 Yessi [facility] GLUCOSE POC 2021-02-18 20:32:00 Marbella Allan H ealth GLUCOSE POC 2021-02-18 16:29:00 Marbella Allan [facility] GLUCOSE POC 2021-02-18 11:55:00 Marbella Allan [facility] GLUCOSE POC 2021-02-18 08:32:00 Marbella Allan [facility] MAGNESIUM 2021-02-18 04:49:00 John Hastings [facility] PHOSPHORUS 2021-02-18 04:49:00 John Hastings [facility] BASIC METABOLIC PANEL 2021-02-18 04:49:00 Y[facility]i [facility] GLUCOSE POC 2021-02-17 21:11:00 Marbella Allan [facility] GLUCOSE POC 2021-02-17 17:23:00 Marbella Allan [facility] GLUCOSE POC 2021-02-17 11:27:00 Marbella Allan [facility] GLUCOSE POC 2021-02-17 08:02:00 Marbella Allan [facility] CBC/DIFF 2021-02-17 04:48:00 Faustino Lovett h MAGNESIUM 2021-02-17 04:48:00 John Hastings lth PHOSPHORUS 2021-02-17 04:48:00 John Hastings lt CBC 2021-02-17 04:48:00 Faustino Lovett Healt h BASIC METABOLIC PANEL 2021-02-17 04:48:00 Yessi Henry Health DIFFERENTIAL, MANUAL-WAM 2021-02-17 04:48:00 Faustino Lovett [facility] GLUCOSE POC 2021-02-16 20:34:00 Marbella Allan H ealth GLUCOSE POC 2021-02-16 16:55:00 Marbella Allan H ealth GLUCOSE POC 2021-02-16 12:30:00 Marbella Allan H ealth CONSULT CLINICAL CASE 2021-02-16 10:49:47 [facility]i [facility] MANAGEMENT (RN/SW) INFUSION PUMP 2021-02-16 09:34:29 Marbella Allan H ealth GLUCOSE POC 2021-02-16 08:33:00 Marbella Allan H ealth COMPREHENSIVE METABOLIC 2021-02-16 05:22:00 Faustino Lovett is Health PANEL CBC/DIFF 2021-02-16 05:22:00 Faustino Lovettt h MAGNESIUM 2021-02-16 05:22:00 John Hastings lth PHOSPHORUS 2021-02-16 05:22:00 John Hastingsa lt CBC 2021-02-16 05:22:00 Faustino Lovettt h DIFFERENTIAL, MANUAL-WAM 2021-02-16 05:22:00 Faustino Lovett ris Health GLUCOSE POC 2021-02-15 20:28:00 Marbella Allan H ealth COMMODE AT BEDSIDE 2021-02-15 19:47:20 Marbella Allani s Health COMMODE AT BEDSIDE 2021-02-15 18:24:54 [facility] GLUCOSE POC 2021-02-15 17:14:00 [facility] GLUCOSE POC 2021-02-15 12:23:00 [facility] COMMODE EXTRA WIDE 2021-02-15 11:56:39 [facility] GLU[facility]SE POC 2021-02-15 08:26:00 [facility] COMPREHENSIVE METABOLIC 2021-02-15 04:23:00 Faustino Lovett is Health PANEL CBC/DIFF 2021-02-15 04:23:00 Faustino Lovettt h MAGNESIUM 2021-02-15 04:23:00 John Hastings lth PHOSPHORUS 2021-02-15 04:23:00 John Hastings [facility] BLOOD GAS, VENOUS 2021-02-15 04:23:00 John Hastings ealth CBC 2021-02-15 04:23:00 Faustino Lovett h GLUCOSE POC 2021-02-14 22:37:00 [facility] HGB/HCT 2021-02-14 21:37:00 Yessi Henry [facility] GLUCOSE POC 2021-02-14 17:05:00 Marbella Allan ealth GLUCOSE POC 2021-02-14 12:26:00 [facility] GLUCOSE POC 2021-02-14 07:58:00 Marbella Allan ealt COMPREHENSIVE METABOLIC 2021-02-14 05:05:00 Faustino Lovett is Health PANEL CBC/DIFF 2021-02-14 05:05:00 Faustino Lovettt h MAGNESIUM 2021-02-14 05:05:00 John Hastings lth PHOSPHORUS 2021-02-14 05:05:00 John Hastings lth CBC 2021-02-14 05:05:00 Faustino Lovett h VITAMIN B12 2021-02-14 05:05:00 Yessi Henry lt THYROID STIMULATING 2021-02-14 05:05:00 ElaineYessi [facility] HORMONE (TSH) BLOOD GAS, VENOUS 2021-02-14 05:04:00 John Hastings kamron URINALYSIS W/REFLEX TO 2021-02-13 23:54:00 Shayy, [facility]INE CULTURE URINALYSIS 2021-02-13 23:54:00 Shayy, Edna Janelle [facility] alth STREP PNEUMO AG, UR 2021-02-13 23:54:00 John Hastings [facility] GLUCOSE POC 2021-02-13 20:20:00 Marbella Allan CONSULT CLINICAL CASE 2021-02-13 17:32:56 Kirstin Velez [facility] Health MANAGEMENT (RN/SW) GLUCOSE POC 2021-02-13 17:02:00 Marbella Allan HGB/HCT 2021-02-13 16:22:00 Yessi Henry racquel [facility] GLUCOSE POC 2021-02-13 12:03:00 Marbella Allan ECHG NON-INVASIVE PROC 2021-02-13 08:08:00 Kirstin Velez [facility] ECHOCARDIOGRAM 2-D W/O CONTRAST (PROSOLVE) GLUCOSE POC 2021-02-13 08:04:00 Marbella Allan INFUSION PUMP 2021-02-13 07:14:18 Marbella Allan T&S - COLLECTION 2021-02-13 05:08:00 Faustino Lovett RBC UNITS 2021-02-13 05:08:00 Dakota Packer COMPREHENSIVE METABOLIC 2021-02-13 05:03:00 Faustino Lovett Health PANEL TYPE AND SCREEN 2021-02-13 05:03:00 Faustino Lovett CBC/DIFF 2021-02-13 05:03:00 Faustino Lovett CBC 2021-02-13 05:03:00 Faustino Lovett ABO/RH CONFIRMATION 2021-02-13 05:03:00 Faustino Lovett ealth BLOOD GAS, VENOUS 2021-02-12 09:31:00 Faustino Lovett racquel lt BLOOD GAS, VENOUS 2021-02-12 04:14:00 Faustino Lovett [facility] COMPREHENSIVE METABOLIC 2021-02-12 04:13:00 Bony Faustino Choi [facility] PANEL IRON PROFILE 2021-02-12 04:13:00 Faustino Lovett [facility] h FERRITIN 2021-02-12 04:13:00 Faustino Lovett [facility] HEMOGLOBIN A1C 2021-02-12 04:13:00 Faustino Lovett [facility] HEPATITIS C VIRUS AB 2021-02-12 04:13:00 Faustino Lovett [facility] HIV AG/AB COMBO ROUTINE 2021-02-12 04:13:00 Faustino Lovett is Health SCREENING CONSULT CLINICAL CASE 2021-02-12 01:12:08 Faustino Lovett [facility] MANAGEMENT (RN/SW) U/S ABDOMEN LIMITED 2021-02-11 19:21:16 Rainer Bethany [facility] SARS-COV-2, FLU A/B, RSV 2021-02-11 17:59:00 Rainer [facility] CORONAVIRUS, COVID-19, 2021-02-11 17:59:00 Rainer Bethany [facility] MARIANNE LIVER PROFILE 2021-02-11 17:58:00 [facility] 2021-02-11 17:58:00 [facility] CHEST 2 VIEWS 2021-02-11 17:43:39 [facility] 2021-02-11 17:19:25 [facility] BASIC METABOLIC PANEL 2021-02-11 17:13:00 MasonGabino alcala [facility] CBC/DIFF 2021-02-11 17:13:00 [facility] NATRI[facility]TIC 2021-02-11 17:13:00 Gabino Cuevas alth PEPTIDE (BNP) CBC 2021-02-11 17:13:00 Gabino Cuevas DIFFERENTIAL, MANUAL-WAM 2021-02-11 17:13:00 MasonGabino [facility] Corneal Transplant 2009-11-16 00:00:00 [facility] Me dical Plan of Care Planned Activity Planned Date Details Comments Source Future Scheduled 2024-05-21 Lipid panel (procedure) [facility] Test 00:00:00 [code = 15832022] Medical Ce nter Future Scheduled 2023-08-29 Screening for malignant [facility] 10:56:57 neoplasm of colon Hospital (procedure) [code = 318764693] Future Scheduled 2023-08-29 Screening for malignant [facility] 10:56:57 neoplasm of colon Hospital (procedure) [code = 849623164] Future Scheduled 2023-08-29 Screening for malignant [facility] 10:56:57 neoplasm of colon Hospital (procedure) [code = 452111310] Future Scheduled 2023-08-29 COVID-19 VACCINE (#1) [facility] 10:56:57 [code = COVID-19 VACCINE Hos pital (#1)] Future Scheduled 2023-08-29 Screening for malignant [facility] 10:56:57 neoplasm of cervix Hospital (procedure) [code = 628715596] Future Scheduled 2023-08-29 BREAST CANCER SCREENING [facility] 10:56:57 [code = BREAST CANCER Hospit al SCREENING] Future Scheduled 2023-08-29 Screening for malignant [facility] 10:56:57 neoplasm of colon Hospital (procedure) [code = 399157018] Future Scheduled 2023-08-29 Screening for malignant [facility] 10:56:57 neoplasm of colon Hospital (procedure) [code = 825102286] Future Scheduled 2023-08-29 INFLUENZA VACCINE (#1) [facility] Test 10:56:57 [code = INFLUENZA VACCINE Ho spital (#1)] Future Scheduled 2023-08-29 RSV VACCINES > 60 YR (1 - [facility] Test 10:56:57 1-dose 60+ series) [code Hos pital = RSV VACCINES > 60 YR (1 - 1-dose 60+ series)] Future Scheduled 2023-07-17 IMM Influenza Seasonal [facility] Test 00:00:00 (>/= 19 yrs) [code = IMM Influenza Seasonal (>/= 19 yrs)] Future Scheduled 2023-07-17 Influenza Vaccine (#1[facility] [code = Influenza Vaccine Me dical Center (#1)] Future Scheduled 2022-11-[address] [facility] Test 00:00:00 (12+) [code = DEPRESSION Med ica Center SCREENING (12+)] Future Scheduled 2022-08-16 IMM Influenza Seasonal [facility] Test 00:00:00 (>/= 19 yrs) [code = IMM Influenza Seasonal (>/= 19 yrs)] Future Scheduled 2022-07-18 BREAST CANCER SCREENING [facility] 12:52:48 [code = BREAST CANCER Hospit al SCREENING] Future Scheduled 2022-07-18 COLONOSCOPY SCREENING [facility] 12:52:48 [code = COLONOSCOPY Hospital SCREENING] Future Scheduled 2022-07-18 INFLUENZA VACCINE [code = [facility] 12:52:48 INFLUENZA VACCINE] Hospital Future Scheduled 2022-07-18 HEPATITIS B VACCINES (1 [facility] 12:52:48 of 3 - 3-dose series) Hospit al [code = HEPATITIS B VACCINES (1 of 3 - 3-dose series)] Future Scheduled 2022-07-18 COVID-19 VACCINE (#1) [facility] 12:52:48 [code = COVID-19 VACCINE Hos pital (#1)] Future Scheduled 2022-07-18 Hepatitis C screening [facility] 12:52:48 (procedure) [code = Hospital 214796775] Future Scheduled 2022-07-18 Screening for malignant [facility] 12:52:48 neoplasm of cervix Hospital (procedure) [code = 718267585] Future Scheduled 2021-08-16 IMM Influenza Seasonal [facility] 00:00:00 Aug to January (>/= 19 yrs) [code = IMM Influenza Seasonal Aug to January (>/= 19 yrs)] Future Scheduled 2021-08-16 IMM Influenza Seasonal [facility] Test 00:00:00 Aug to January (>/= 19 yrs) [code [...] Scrn (Yearly)] Future Scheduled 2007 Screening for malignant [facility] 00:00:00 neoplasm of cervix (procedure) [code = 265693075] Future Scheduled 2007 Screening for malignant [facility] Test 00:00:00 neoplasm of cervix (procedure) [code = 609448196] Future Scheduled 2007 Screening for malignant [facility] Test 00:00:00 neoplasm of cervix (procedure) [code = 436062933] Future Scheduled 2007 Screening for malignant [facility] Test 00:00:00 neoplasm of cervix (procedure) [code = 124117877] Future Scheduled 2007 Screening for malignant [facility] Test 00:00:00 neoplasm of cervix (procedure) [code = 803443689] Future Scheduled 2007 Screening for malignant [facility] Test 00:00:00 neoplasm of cervix (procedure) [code = 243605284] Future Scheduled 1998 Screening for malignant [facility] 00:00:00 neoplasm of cervix (procedure) [code = 153556659] Future Scheduled 1998 Screening for malignant [facility] Test 00:00:00 neoplasm of cervix (procedure) [code = 875509301] Future Scheduled 1998 Screening for malignant [facility] Test 00:00:00 neoplasm of cervix Medical C enter (procedure) [code = 845313474] Future Scheduled 1996 DTAP/TDAP/TD VACCINES ([address] [facility] Test 00:00:00 - Tdap) [code = Medical Cent er DTAP/TDAP/TD VACCINES (1 - Tdap)] Future Scheduled 1995 HEPATITIS C [facility]CRE[facility]ING [facility] 00:00:00 [code = HEPATITIS C Medical Center SCREENING] Future Scheduled [address] [facility] 00:00:00 virus screening Medical Cent er (procedure) [code = 277394229] Future Scheduled 1989 COVID-19 Vaccine (1) [facility] 00:00:00 [code = COVID-19 Vaccine (1)] Future Scheduled 1989 COVID-19 Vaccine (1) [facility] 00:00:00 [code = COVID-19 Vaccine (1)] Future Scheduled [address] [facility] Test 00:00:00 Counseling and Screening [facility] ica Center (12+) [code = Tobacco Cessation Counseling and Screening (12+)] Future Scheduled 1977 COVID-19 Vaccine (#1) [facility] 00:00:00 [code = COVID-19 Vaccine (#1)] Future Scheduled 1977 COVID-19 Vaccine (#1) [facility] 00:00:00 [code = COVID-19 Vaccine (#1)] Future Scheduled 1977 COVID-19 VACCINE [facility] 00:[facility]00 [code = COVID-19 VACCINE [facility] (#1)] Future Scheduled 1977 Fluoride Varnish [code = [facility] 00:00:00 Fluoride Varnish] Future Scheduled 1977 Screening for malignant [facility] Test 00:00:00 neoplasm of colon Medical Ce nter (procedure) [code = 714271439] Future Scheduled 1977 Screening for malignant [facility] Test 00:00:00 neoplasm of colon Medical Ce nter (procedure) [code = 239388104] Future Scheduled 1977 Screening for malignant [facility] Test 00:00:00 neoplasm of colon Medical Ce nter (procedure) [code = 841721924] Future Scheduled 1977 Sigmoidoscopy [code = [facility] S[facility]oscopy] Medical Cente r Future Scheduled 1977 CT Colonography (combo) [facility] Test 00:00:00 [code = CT Colonography [facility] (combo)] Future Scheduled 1977 Screening for malignant [facility] Test 00:00:00 neoplasm of colon Medical Ce nter (procedure) [code = 988968577] Future Scheduled COVID-19 VACCINE (1) [facility] [code = COVID-19 VACCINE Hos pital (1)] Future Scheduled Hepatitis C screening [facility] (procedure) [code = Hospital 419319633] Future Scheduled Screening for malignant [facility] neoplasm of cervix Hospital (procedure) [code = 100234371] Future Scheduled INFLUENZA VACCINE [code = [facility] INFLUENZA VACCINE] Hospital Encounters Start End Encounter Admission Attending Care Care Encounter Source Date/Time Date/Time Type Type Clinicians Facility Department ID 2021-12-12 Outpatient 3 ARIES, E[facility]UL [facility] 12:43:48 [facility] [place] 2021-12-12 Outpatient [id number] ENC[facility] REF [id number] [facility] 12:43:12 0817 [facility] [place] 2021-05-[address] [facility] [id number] H arris 17:01:48 Health 2021-05-[address] [facility] [id number] H arris 14:19:18 [facility] 2021-02-11 Inpatient [facility] [id number] [facility] 11:36:00 92 2022-08-20 2022-08-20 Outpatient GC_SWHAOMC_ PRIV PRIV [id number] [facility] 00:00:00 00:00:00 Rebecca [id number] Medica l 2022-08-20 2022-08-20 Madeleine [facility] 05 [facility] 00:00:00 00:00:00 Michael [facility] Medic caridad Rahman MD: GC_SWDMITRIYOMC_ [id number] [facility], [address], [place] [address] , Ph. 2022-05-29 2022-05-29 Outpatient GC_SWHAOMC_ PRIV PRIV [id number] [facility] 00:00:00 00:00:00 Rebecca [id number] Medica l 2022-05-29 2022-05-29 Outpatient Madeleine Rahman PRIV [id number] 00:00:00 00:00:00 Michael [id number] 2022-05-29 2022-05-29 Madeleine [facility] 14 [facility] 00:00:00 00:00:00 Michael [facility] Medic caridad Rahman MD: GC_GITA_ [address], [place] [address] , Ph. 2022-05-29 2022-05-29 Outpatient Madeleine Rahman PRIV PRIV [id number] 00:00:00 00:00:00 Michael [id number] 2022-05-28 2022-05-28 Outpatient GC_SWHAOMC_ PRIV PRIV [id number] [facility] 11:27:00 11:27:00 Black_D [id number] Medica l 2022-05-15 2022-05-15 Outpatient GC_SWHAOMC_ PRIV PRIV [id number] [facility] 12:43:00 12:43:00 Black_D [id number] Medica l 2022-03-11 2022-03-28 Inpatient ER DUMONT, [facility] Internal [id number] [facility] 00:52:00 23:55:00 EYAD Med 2021-09-10 2021-09-[address] [facility] [id number] [place] 00:00:00 00:00:00 [facility] 2021-08-15 2021-08-[address] [facility] [id number] [place] 00:00:00 23:59:00 Health 2021-07-25 2021-07-25 Outpatient TIM, [facility] [id number] [facility] 00:00:00 00:00:00 [facility] 2021-07-19 2021-07-19 Outpatient FILOMENA, [facility] [id number] [place] 00:00:00 00:00:00 [facility] 2021-07-11 2021-07-18 Emergency EM Nickolas, FLORPM INTE.02 [id number] [facility] 02:31:00 19:10:00 Oladipo 40 [facility] 2021-07-12 2021-07-[address] [facility] [id number] [facility] 00:00:00 00:00:00 [facility] 2021-07-11 2021-07-11 Outpatient FELIPE Vargas LABO [id number] [facility] 00:50:00 00:50:00 Ruddy Love [facility] 2021-06-27 2021-06-27 [facility] [id number] [place] [facility]:00[facility]00 [facility] 2021-06-[facility] 2021-06-27 Outpatient ARLENEA [facility] [id number] [place] 00:00:00 00:00:00 , SARAHHOLLY Casas 2021-06-25 2021-06-25 Outpatient FILOMENA, [facility] [id number] [place] 00:00:00 00:00:00 [facility] 2021-06-24 2021-06-24 Clinical Kiran, [facility] [id number] [place] 00:00:00 00:00:00 Case Mgt Megan R Wayne 2021-06-20 2021-06-20 [facility] [id number] [place] 16:06:50 17:32:54 ne Carlita [facility] 2021-06-20 2021-06-20 [facility] [id number] [place] 00:00:00 00:00:00 Only Carlita Choi [facility] 2021-06-20 2021-06-20 Nurse Willi, [facility] [id number] [facility] 00:00:00 00:00:00 Triage Alejandra Black 2021-06-12 2021-06-12 [facility]medici [facility] [id number] [facility] 12:53:21 13:29:09 [facility] 2021-06-12 2021-06-12 Orders Filomena, [facility] [id number] [facility] 00:00:00 00:00:00 Only [facility] 2021-06-06 2021-06-06 Telemedici Filomena, [facility] [id number] [facility] 06:15:21 13:54:30 ne [facility] 2021-06-06 2021-06-06 [facility] [id number] [facility] 00:00:00 00:00:00 Only [facility] 2021-06-04 2021-06-04 Outpatient FILOMENA, [facility] [id number] [facility] 06:29:01 06:29:01 [facility] 2021-05-28 2021-05-28 Clinical Tre, [facility] [id number] [facility] 00:00:00 00:00:00 Case Mgt Jessie Wayne Lalaira 2021-05-28 2021-05-28 Clinical Tre, [facility] [id number] [facility] 00:00:00 00:00:00 Case Mgt Jessie Lalaira 2021-05-27 2021-05-27 Clinical Tre, [facility] [id number] [facility] 00:00:00 00:00:00 Case Mgt Jessie Lalaira 2021-05-27 2021-05-27 Clinical Tre, [facility] [id number] [facility] 00:00:00 00:00:00 Case Mgt Jessie Healmaizn h Naheed 2021-05-20 2021-05-[address] [facility] [id number] [place] 15:31:00 16:57:00 Encounter [facility] Nicky Lachelle Navid 2021-05-21 2021-05-21 [id number] [place] 07:07:53 07:07:53 [facility] 2021-05-20 2021-05-[address] [facility] [id number] [place] 15:26:47 15:57:43 [facility] 2021-02-21 2021-02-21 Clinical Tre, [facility] [id number] [place] 00:00:00 00:00:00 Case Mgmazin Lalaira 2021-02-20 2021-02-20 Clinical Tre, [facility] [id number] [place] 00:00:00 00:00:00 Case Mgt Jessie Healmazin Lalaira 2021-02-11 2021-02-19 [facility] Nicola Murray [facility] [id number] [place] 15:09:00 14:20:00 Encounter Marbella Allan 2021-02-14 2021-02-14 [facility] [id number] [place] 15:05:12 15:05:16 KIMI Black 2021-02-13 2021-02-13 Outpatient NEELAM [facility] [id number] [place] 12:05:21 12:09:39 MARBELLA Casas 2021-02-11 2021-02-[address] [facility] [id number] [place] 18:23:09 19:21:38 Health 2021-02-11 2021-02-[address] [facility] [id number] [facility] 17:24:22 17:44:35 Health 2021-02-11 2021-02-11 Emergency [facility] [id number] [facility] 11:36:00 11:36:00 92 2020-12-17 2020-12-17 Letter Hennynaz [facility] [id number] 00:00:00 00:00:00 (Out) Connie O DRILL PRESS OPERATOR FOR METAL 350.1.13.10 REGIONAL [id number] MATERNAL [id number] & CHILD 111 [facility] 2020-11-06 2020-11-06 Telephone Kailey [facility] [id number] 00:00:00 00:00:00 Connie O DRILL PRESS OPERATOR FOR METAL 350.1.13.10 REGIONAL [id number] MATERNAL [id number] & CHILD 111 [facility] Results Test Description Test Time Test Comments Results Result Comments Source MAG[facility]UM 2022-03-28 06:14:02 Test Item Value Reference Range Interpretation Comme nts MAGNESIUM (BEAKER) (test code = 627) 1.9 mg/dL 1.5-3.0 [employer] ID - LITOOperator ID - LITOOperator ID - LITOOperator ID - LITOBASIC METABOLIC [id number] 06:13:50 Test Item Value Reference Range Interpretation [...] 1092) DATA TO CALCULA TE ESTIMATED GFR. [employer] ID - LITOOperator ID - LITOOperator ID - LITOOperator ID - LITOOperator ID - LITOOperator ID - LITOOperator ID - LITOOperator ID - LITOOperator ID - LITOOperator ID - [id number] 06:11:01 Test Item Value Reference Range Interpretation Comments PHOSPHORUS (BEAKER) (test code = 3.4 mg/dL 2.5-4.5 604) [employer] ID - LITOCBC W/PLT COUNT & AUTO [id number] 05:56:30 Test Item Value Reference Range Interpretation [...] (BEAKER) (test code = 2801) BASIC METABOLIC [id number] 05:29:24 Test Item Value Reference Range Interpretation [...] 1092) DATA TO CALCULA TE ESTIMATED GFR. [employer] ID - [id number] ID - wrxn34Cboussgc ID - uyhn98Szzwesoc ID - copc27Gflzirey ID - mzko16Bbomfmvp ID - fgus22Cdkplmyx ID - jkff98Gpmwgbxn ID - khka15Zbtlxdjo ID - cwem25Zvcmuiyb ID - kzcu09QGKLHYPPB7142-09-62 05:29:17 Test Item Value Reference Range Interpretation Comments MAGNESIUM (BEAKER) (test code = 1.9 mg/dL 1.5-3.0 627) [employer] Internship ID - stfl01Xmytnkea ID - touv37Busxkrdo ID - rggs92Ehwixlxb ID - znmp04 MVFNJXNKQY1209-54-55 05:26:24 Test Item Value Reference Range Interpretation Comments PHOSPHORUS (BEAKER) (test code = 3.5 mg/dL 2.5-4.5 604) [employer]ship ID - ileu25FVF W/PLT COUNT & AUTO [id number] 05:09:58 Test Item Value Reference Range Interpretation [...] = 2801) RAD, CHEST, 1 VIEW, NON [id number] 03:16:00Reason for exam:->f/u [facility] edema[facility] : 1975 Sex: FFINAL REPORT RAD, CHEST, 1 VIEW, NON DEPT INDICATION: f/u pulmonary edema COMPARISON: Prior day's exam FINDINGS: Portable frontal view of the chest. IMPRESSION: Support Lines: Stable. Lungs and pleura: Unchanged bilateral central hazy airspace and interstitial opacities. No pneumothorax. Heart and mediastinum: Stable contours. Additional findings: None. Signed: Gopal Valencia Verified Date/Time: 03/27/2022 03:16:54 [id number] 11:42:31 Test Item Value Reference Range Interpretation Comments POTASSIUM (BEAKER) (test code = 3.3 meq/L 3.6-5.5 L 379) [employer]ship ID - DSENSONOperator ID - DSENSONOperator ID - DSENSONOperator ID - DSENSONRAD, CHEST, 1 VIEW, NON [id number] 05:51:00Reason for exam:->[facility] : 1975 Sex: FFINAL REPORT RAD, CHEST, 1 VIEW, NON DEPT INDICATION: RF COMPARISON: Prior day's exam FINDINGS: Portable frontal view of the chest. IMPRESSION: Support Lines: Stable. Lungs and pleura: Unchanged venous congestion and bilateral hazy opacities suggestive of edema. No pneumothorax. Heart and mediastinum: Stable contours. Additional findings: None. Signed: Gopal [facility] Verified Date/Time: 03/26/2022 05:51:15 BASIC METABOLIC [id number] 05:39:26 Test Item Value Reference Range Interpretation [...] 1092) DATA TO CALCULA TE ESTIMATED GFR. [employer] Internship ID - LITOOperator ID - LITOOperator ID - LITOOperator ID - LITOOperator ID - LITOOperator ID - LITOOperator ID - LITOOperator ID - LITOOperator ID - LITOOperator ID - [id number] 05:33:17 Test Item Value Reference Range Interpretation Comments MAGNESIUM (BEAKER) (test code = 2.2 mg/dL 1.5-3.0 627) [employer] Management Internship ID - LITOOperator ID - LITOOperator ID - LITOOperator ID - MICHAEL [id number] 05:30:43 Test Item Value Reference Range Interpretation Comments PHOSPHORUS (BEAKER) (test code = 3.7 mg/dL 2.5-4.5 604) [employer] Management Internship ID - LITOCBC W/PLT COUNT & AUTO [id number] 05:27:20 Test Item Value Reference Range Interpretation [...] (BEAKER) (test code = 2801) VANCOMYCIN LEVEL, [id number] 18:00:19 Test Item Value Reference Range Interpretation Comments VANCOMYCIN TROUGH (BEAKER) (test 11.8 ug/mL 10.0-20.0 code = 522) [employer] Internship ID - [id number] 17:57:47 Test Item Value Reference Range Interpretation Comments POTASSIUM (BEAKER) (test code = 3.4 meq/L 3.6-5.5 L 379) [employer] Internship ID - [id number] ID - [id number] ID - [id number] ID - [id number]-PTKTSTS [id number] 17:47:50 Test Item Value Reference Range Interpretation Comments POC-GLUCOSE METER 91 mg/dL 70-110 : TESTED A T [facility] [address] (BEAKER) (test code = [address], [address]) [facility] [place] [address]: Sports Management Internship/Techni hermes ID = [id number] for Lori Amalia BASIC METABOLIC [id number] 13:18:53 Test Item Value Reference Range Interpretation [...] 1092) DATA TO CALCULA TE ESTIMATED GFR. Sports Management Internship ID - DSENSONOperator ID - DSENSONOperator ID - DSENSONOperator ID - DSENSONOperator ID - DSENSONOperator ID - DSENSONOperator ID - DSENSONOperator ID - DSENSONOperator ID - DSENSONOperator ID - DSENSONOperator ID - DSENSONOperator ID - DSENSONOperator ID - DSENSONPOCT-GLUCOSE [id number] 12:41:27 Test Item Value Reference Range Interpretation Comments POC-GLUCOSE METER 97 mg/dL 70-110 : TESTED A T [facility] 1317 (BEAKER) (test code = [address], 1538) [facility] [place]NOTE 2[place] [address]: Sports Management Internship/Techni hermes ID = [id number] for LoriAmalia SARS-COV2/RT-PCR ([facility])2022-03-25 05:25:46 Test Item Value Reference Range Interpretation Comments SARS-COV2/RT-PCR Negative Negative The SARS-Co V-2 target (test code = nucleic acids a re not [id number]) detected in thi s specimen. Negative result [...] revoked sooner. Fact Sheet for Healthcare Providers: https://www.[employer]/Documents/Xpert%20Xpress%20SARS%20CoV-2/Fact%20Sheets/302-3802%79HFRL-KSR-0%20 HEALTHCARE%20PROVIDERS%20FACT%20SHEET.pdf Fact Sheet for Healthcare Patients: https://www.[employer]/Documents/Xpert%20Xp ress%20SARS%20CoV-2/Fact%20Sheets/302-3801%97PJUZ-OEL-1%20PATIENT%20FACT%20SHEET .pdfBASI METABOLIC [id number] 04:40:47 Test Item Value Reference Range Interpretation [...] 1092) DATA TO CALCULA TE ESTIMATED GFR. [employer] Internship ID - [id number] ID - mewjxcbzi528Nddqxeqs ID - rpafbrnth081Llgegmdz ID - cooidtuur339Utrmvcwr ID - jfuuiwqhs526Vvhybxzu ID - zdhfrhcal602Kajycqkt ID - algxxsixi631Mhqbgdut ID - zqvkpjsvo502Nhojshnr ID - eupvcxznq147Otgigjrr ID - hlroucvrl426FMZDSFTDS0589-03-64 04:40:18 Test Item Value Reference Range Interpretation Comments MAGNESIUM (BEAKER) (test code = 2.2 mg/dL 1.5-3.0 627) [employer] Internship ID - ueulhhxlf051Lifxjmol ID - rxxveakac500Wdsbreye ID - syyokcfth038Mxrtqxlw ID - dldwqafko032LEMZSVYBYC5327-66-20 04:37:39 Test Item Value Reference Range Interpretation Comments PHOSPHORUS (BEAKER) (test code = 4.1 mg/dL 2.5-4.5 604) [employer] Internship ID - [id number] W/PLT COUNT & AUTO [id number] 04:25:04 Test Item Value Reference Range Interpretation [...] = 2801) RAD, CHEST, 1 VIEW, NON [id number] 03:45:00Reason for exam:->[facility] 1975 Sex: FFINAL REPORT CLINICAL INDICATION: RF Comparison: 03/24/2022 The cardiomediastinal contours are stable. The lung volumes are stable after extubation. Central pulmonary vascular congestion andbilateral parenchymal and pleural opacities are unchanged. There is no pneumothorax. A right IJ CVC r emains in place. Signed: Sunshine Zambrano MDReport Verified Date/Time: 03/25/2022 03:45:57 -GLUCOSE [id number] 00:03:05 Test Item Value Reference Range Interpretation Comments POC-GLUCOSE METER 83 mg/dL 70-110 : Notified RN/MD: TESTED (BEAKER) (test code = [address]) [facility] [place] 2[place] [address]: Sports Management Internship/Techni hermes ID = [id number] for Latia Clark BASIC METABOLIC [id number] 22:31:52 Test Item Value Reference Range Interpretation [...] 1092) DATA TO CALCULA TE ESTIMATED GFR. [employer] Internship ID - [id number] ID - [id number] ID - [id number] ID - [id number] ID - [id number] ID - [id number] ID - [id number] ID - [id number] ID - [id number] ID - [id number] ID - [id number] ID - [id number] ID - [id number] METABOLIC [id number] 15:34:59 Test Item Value Reference Range Interpretation [...] 1092) DATA TO CALCULA TE ESTIMATED GFR. [employer] Internship ID - DSENSONOperator ID - DSENSONOperator ID - DSENSONOperator ID - DSENSONOperator ID - DSENSONOperator ID - DSENSONOperator ID - DSENSONOperator ID - DSENSONOperator ID - DSENSONOperator ID - DSENSONOperator ID - DSENSONOperator ID - DSENSONOperator ID - [id number] ID - [id number] GAS, [id number] 13:09:46 Test Item Value Reference Range Interpretation [...] (test code = 1819) 50.0 VANCOMYCIN LEVEL, [id number] 05:27:09 Test Item Value Reference Range Interpretation Comments VANCOMYCIN TROUGH (BEAKER) (test 21.2 ug/mL 10.0-20.0 H code = 522) Sports [employer] Internship ID - [id number] METABOLIC [id number] 05:10:41 Test Item Value Reference Range Interpretation [...] 1092) DATA TO CALCULA TE ESTIMATED GFR. Sports Management Internship ID - JUSTINOperator ID - JUSTINOperator ID - JUSTINOperator ID - JUSTINOperator ID - JUSTINOperator ID - JUSTINOperator ID - JUSTINOperator ID - JUSTINOperator ID - JUSTINOperator ID - JUSTINOperator ID - JUSTINMAGNESIUM 2022-03-24 04:50:15 Test Item Value Reference Range Interpretation Comments MAGNESIUM (BEAKER) (test code = 2.3 mg/dL 1.5-3.0 627) Sports Management Internship ID - JUSTINOperator ID - JUSTINOperator ID - JUSTINOperator ID - ROBERTO [id number] 04:47:29 Test Item Value Reference Range Interpretation Comments PHOSPHORUS (BEAKER) (test code = 4.1 mg/dL 2.5-4.5 604) Sports Management Internship ID - JUSTINBLOOD GAS, [id number] 04:32:46 Test Item Value Reference Range Interpretation [...] 1819) 50.0 CBC W/PLT COUNT & AUTO [id number] 04:22:57 Test Item Value Reference Range Interpretation [...] = 2801) RAD, CHEST, 1 VIEW, NON [id number] 03:23:00Reason for exam:->RF [facility] : 1975 Sex: FFINAL REPORT CLINICAL INDICATION: RF Comparison: 03/23/2022 The cardiomediastinal contours are stable. The lung volumes remain low. Central pulmonary vascular congestion and bilateral parenchymal and pleural opacities are unchanged. There is no pneumothorax. Support lines are stable. Signed: Sunshine Zambrano Verified Date/Time: 03/24/2022 03:23:14 POCT-GLUCOSE METER 2022-03-24 00:06:41 Test Item Value Reference Range Interpretation Comments POC-GLUCOSE METER 91 mg/dL 70-110 : TESTED A T [facility] [address] (BEAKER) (test code [address]) [facility] [place]NOTE 2[place] [address]: Sports Management Internship/Techni hermes ID = [id number] for William Navarro BASIC METABOLIC [id number] 21:56:46 Test Item Value Reference Range Interpretation [...] 1092) DATA TO CALCULA TE ESTIMATED GFR. Sports Management Internship ID - ONYINYEOperator ID - ONYINYEOperator ID - ONYINYEOperator ID - ONYINYEOperator ID - ONYINYEOperator ID - ONYINYEOperator ID - ONYINYEOperator ID - ONYINYEOperator ID - ONYINYEOperator ID - ONYINYEOperator ID - ONYINYEOperator ID - ONYINYEOperator ID - ONYINYEBASIC METABOLIC [id number] 13:21:30 Test Item Value Reference Range Interpretation [...] 1092) DATA TO CALCULA TE ESTIMATED GFR. Sports Management Internship ID - [id number] ID - JZZKMROXL675Zoyohyhn ID - YPCXLFPWA406Lchbvboe ID - KJCYUSUGX573Sjlcomhl ID - MXKAQRNKA731Acfbxfhz ID - DWCJLMZGY063Mcrcrwao ID - GDIWULFUN052Flnmizfr ID - PTFLCPRJK269Enmjhwbd ID - VUMWEVUEM856Yrspgwwl ID - TMWTYWVSK995Plkrsxuf ID - HELDRCYJR252Rcmzxxpo ID - XBKRUZFLN505Eypwyatz ID - MTJZRJRMC508OOXI-HJXTAHC [id number] 13:12:47 Test Item Value Reference Range Interpretation Comments POC-GLUCOSE METER 101 mg/dL 70-110 : TESTED A T [facility] [address]17 (BUSTER) (test code [address], = 1538) [facility] [place]NOTE 2[place] [address]: Sports Management Internship/Techni hermes ID = [id number] for Joshua Stringer RAD, CHEST, 1 VIEW, NON [id number] 05:58:00Reason for exam:->RF [facility] : 1975 Sex: [...] changes. Additional findings: None. Signed: Connie Clark MDReport Verified Date/Time: 03/23/2022 05:58:32 BLOOD GAS, [id number] 04:45:33 Test Item Value Reference Range Interpretation [...] (test code = 1819) 50.0 BASIC METABOLIC [id number] 04:26:01 Test Item Value Reference Range Interpretation [...] 1092) DATA TO CALCULA TE ESTIMATED GFR. [employer] Internship ID - [id number] ID - OYNTLYYBG428Jvgjxltz ID - QZKCHDJPD721Xbmipkgr ID - JAZOPKUXR445Eyutulqs ID - EIOQWKZPC732Lxwsltmd ID - TDFNAZDKX675Jesokzjz ID - UCZQLIPDT421Zjvdputv ID - NWUYVAXJS990Dprahyxn ID - ASCWNHBXT115Remflpyv ID - [id number] 04:25:02 Test Item Value Reference Range Interpretation Comments MAGNESIUM (BEAKER) (test code = 2.5 mg/dL 1.5-3.0 627) Sports Management Internship ID - [id number] ID - TOJWDQZRW347Hiugjiqu ID - NWRPFWBUH492Qlwnviot ID - [id number] W/PLT COUNT & AUTO DIFFERENTIAL 2022-03-23 04:24:18 [...] 0-0 PERCENT (BEAKER) (test code = 2801) [id number] 04:22:17 Test Item Value Reference Range Interpretation Comments PHOSPHORUS (BEAKER) (test code = 3.2 mg/dL 2.5-4.5 604) [employer] Management Internship ID - [id number] METABOLIC [id number] 00:32:12 Test Item Value Reference Range Interpretation [...] 1092) DATA TO CALCULA TE ESTIMATED GFR. Sports Management Internship ID - [id number] ID - CHKYQJPDT491Bahdqzqs ID - BWLYUWPKT881Qmtlxtum ID - JMJYJNWMG337Fxerfkfa ID - PVCMNDNAD655Wfrslygh ID - WIMFZIOXF999Bejqbecz ID - RKKKHKRVG139Vwrebfwo ID - JZWWWGEFH103Mqlwiehs ID - TWVGWZJRO392Gloglchp ID - DUJUUTMQB608Gafctzuo ID - ISAMGYMEI736Mtrzxlzc ID - RDOECRYOU208Djccvoun ID - FOWIMHACE964JKZC-CDUSYUO [id number] 00:07:29 Test Item Value Reference Range Interpretation Comments POC-GLUCOSE METER 85 mg/dL 70-110 : TESTED A T [facility] [address] (BEAKER) (test code = [address], 15[address]) [facility] [place]NOTE 2[place] [address]: Sports Management Internship/Techni hermes ID = [id number] for Yvette inIsaiah BASIC METABOLIC [id number] 20:24:19 Test Item Value Reference Range Interpretation [...] 1092) DATA TO CALCULA TE ESTIMATED GFR. Sports Management Internship ID - ONYINYEOperator ID - ONYINYEOperator ID - ONYINYEOperator ID - ONYINYEOperator ID - ONYINYEOperator ID - ONYINYEOperator ID - ONYINYEOperator ID - ONYINYEOperator ID - ONYINYEOperator ID - ONYINYEOperator ID - ONYINYEOperator ID - ONYINYEOperator ID - ONYINYEPOCT-GLUCOSE [id number] 17:53:17 Test Item Value Reference Range Interpretation Comments POC-GLUCOSE METER 139 mg/dL 70-110 H : Notified RN/MD: TESTED (BEAKER) (test code AT [facility] [address]) [facility] [place]NOTE 2[place] [address]: Sports Management Internship/Techni hermes ID = [id number] for Sanju Smith BLOOD [id number] 16:01:30 Test Item Value Reference Range Interpretation Comments CULTURE (BEAKER) (test No growth in 5 days code = 1095) BLOOD [id number] 16:01:30 Test Item Value Reference Range Interpretation Comments CULTURE (BEAKER) (test No growth in 5 days code = 1095) BASIC METABOLIC [id number] 12:55:36 Test Item Value Reference Range Interpretation [...] 1092) DATA TO CALCULA TE ESTIMATED GFR. Sports Management Internship ID - cghx22Oqnlqhlz ID - bniq17Huxqjwgp ID - odzs08Zaeytqzd ID - esxz01Cahypffh ID - khgk88Pzldsdrc ID - kqqu02Habhnnvv ID - mjli34Sauexkqw ID - jbbf73Sxcqllwo ID - bcqc18Tdvgwsnu ID - tccn08Qzyfgslj ID - eszm05Ajuxwilt ID - jdds66Rsbflhar ID - ujmc44DCHZ-GKSLOTG [id number] 11:53:31 Test Item Value Reference Range Interpretation Comments POC-GLUCOSE METER 136 mg/dL 70-110 H : Notified RN/MD: TESTED (BEAKER) (test code AT [facility] [address] 1538) [place] [address]: [employer] Management Internship/Techni hermes ID = [id number] for Sanju Smith BLOOD GAS, [id number] 08:57:41 Test Item Value Reference Range Interpretation [...] 1819) 50.0 RAD, CHEST, 1 VIEW, NON [id number] 07:36:00Reason for exam:->RF [facility] : 1975 Sex: [...] MDReport Verified Date/Time: 03/22/2022 07:36:27 OMYCIN LEVEL, [id number] 04:46:31 Test Item Value Reference Range Interpretation Comments VANCOMYCIN TROUGH (BEAKER) (test 18.9 ug/mL 10.0-20.0 code = 522) Sports Management Internship ID - [id number] METABOLIC [id number] 04:23:09 Test Item Value Reference Range Interpretation [...] 1092) DATA TO CALCULA TE ESTIMATED GFR. Sports Management Internship ID - dbzp99Ddhqqqit ID - ribd50Jgslmbhu ID - mona69Imqlgozu ID - ildf33Fcpnhanx ID - gubu48Woayxdpl ID - kzqx31Mpoepvfh ID - zmua94Mzzdjluz ID - evdq88Davywsnb ID - gnxa44Zbunuywm ID - hfak99GFLORBZLC2887-25-71 03:27:50 Test Item Value Reference Range Interpretation Comments MAGNESIUM (BEAKER) (test code = 2.4 mg/dL 1.5-3.0 627) Sports Management Internship ID - tbht60Yqlsueog ID - twrt59Barbqsdw ID - fdew27Zglwxvhi ID - znmp04 [id number] 03:25:04 Test Item Value Reference Range Interpretation Comments PHOSPHORUS (BEAKER) (test code = 3.8 mg/dL 2.5-4.5 604) Sports Management Internship ID - slwh42KOB W/PLT COUNT & AUTO [id number] 03:15:24 Test Item Value Reference Range Interpretation [...] PERCENT (BEAKER) (test code = 2801) POCT-GLUCOSE [id number] 23:56:22 Test Item Value Reference Range Interpretation Comments POC-GLUCOSE METER 85 mg/dL 70-110 : TESTED A T [facility] [address] (BEAKER) (test code = [address]) [facility] [place]NOTE 2[place] [address]: Sports Management Internship/Techni hermes ID = [id number] for Vandanamine William hackett BASIC METABOLIC [id number] 21:16:18 Test Item Value Reference Range Interpretation [...] 1092) DATA TO CALCULA TE ESTIMATED GFR. Sports Management Internship ID - [id number] ID - [id number] ID - [id number] ID - [id number] ID - p504744tVdlsyojp ID - [id number] ID - q418744gFxpyacno ID - [id number] ID - h472067xNszvmwtl ID - [id number] 21:15:16 Test Item Value Reference Range Interpretation Comments MAGNESIUM (BEAKER) (test code = 2.3 mg/dL 1.5-3.0 627) Sports Management Internship ID - [id number] ID - [id number] ID - [id number] ID - [id number] 21:12:33 Test Item Value Reference Range Interpretation Comments PHOSPHORUS (BEAKER) (test code = 4.0 mg/dL 2.5-4.5 604) Sports Management Internship ID - [id number]-LPWDVWG [id number] 17:37:55 Test Item Value Reference Range Interpretation Comments POC-GLUCOSE METER 118 mg/dL 70-110 H : TESTED A T [facility] [address] (BEAKER) (test code [address], = 1538) [facility] [place]NOTE 2[place] [address]: Sports Management Internship/Techni hermes ID = [id number] for Amalia Sandoval BASIC METABOLIC [id number] 14:20:49 Test Item Value Reference Range Interpretation [...] 1092) DATA TO CALCULA TE ESTIMATED GFR. Sports Management Internship ID - LITOOperator ID - LITOOperator ID - LITOOperator ID - LITOOperator ID - LITOOperator ID - LITOOperator ID - LITOOperator ID - LITOOperator ID - LITOOperator ID - [id number] 14:04:46 Test Item Value Reference Range Interpretation Comments MAGNESIUM (BEAKER) (test code = 2.3 mg/dL 1.5-3.0 627) Sports Management Internship ID - LITOOperator ID - LITOOperator ID - LITOOperator ID - MICHAEL [id number] 14:02:12 Test Item Value Reference Range Interpretation Comments PHOSPHORUS (BEAKER) (test code = 4.0 mg/dL 2.5-4.5 604) Sports Management Internship ID - LITOPOCT-GLUCOSE [id number] 13:56:14 Test Item Value Reference Range Interpretation Comments POC-GLUCOSE METER 117 mg/dL 70-110 H : TESTED A T [facility] [address] (BEAKER) (test code [address], = 1538) [facility] [place]NOTE 2[place] [address]: Sports Management Internship/Techni hermes ID = [id number] for Joshua Stringer BLOOD GAS, [id number] 11:02:30 Test Item Value Reference Range Interpretation [...] (test code = 1819) 50.0 BASIC METABOLIC [id number] 05:10:48 Test Item Value Reference Range Interpretation [...] 1092) DATA TO CALCULA TE ESTIMATED GFR. Sports Management Internship ID - LITOOperator ID - LITOOperator ID - LITOOperator ID - LITOOperator ID - LITOOperator ID - LITOOperator ID - LITOOperator ID - LITOOperator ID - LITOOperator ID - [id number] 04:56:26 Test Item Value Reference Range Interpretation Comments MAGNESIUM (BEAKER) (test code = 3.0 mg/dL 1.5-3.0 627) Sports Management Internship ID - LITOOperator ID - LITOOperator ID - LITOOperator ID - LITOCBC W/PLT COUNT & AUTO [id number] 04:55:03 Test Item Value Reference Range Interpretation [...] H PERCENT (BEAKER) (test code = 2801) [id number] 04:53:42 Test Item Value Reference Range Interpretation Comments PHOSPHORUS (BEAKER) (test code = 4.8 mg/dL 2.5-4.5 H 604) Sports Management Internship ID - LITOBLOOD GAS, [id number] 03:20:23 Test Item Value Reference Range Interpretation [...] 1819) 50.0 RAD, CHEST, 1 VIEW, NON [id number] 01:28:00Reason for exam:->[facility] 1975 Sex: FFINAL REPORT RAD, CHEST, 1 VIEW, NON DEPT INDICATION: RF COMPARISON: Prior day's exam FINDINGS: Portable frontal view of the chest. IMPRESSION: Small portion of the lung bases are not included within the xmxpt-ff-zfig limiting evaluation. Support Lines: Stable. Lungs and pleura: No significant change in bilateral airspace and pleural opacities. No pneumothorax. Heart and mediastinum: Stable contours. Additional findings: None. Signed: Gopal Valencia Verified Date/Time: 201:28:56 POCT-GLUCOSE [id number] 19:21:26 Test Item Value Reference Range Interpretation Comments POC-GLUCOSE METER 117 mg/dL 70-110 H : TESTED A T [facility] [address] (BEAKER) (test code [facility] [address], = 1538) [facility] [place] [address]: Sports Management Internship/Techni hermes ID = [id number] for Andria Jacobs [id number] 13:31:04 Test Item Value Reference Range Interpretation Comments POTASSIUM (BEAKER) (test code = 3.6 meq/L 3.6-5.5 379) [employer] Internship ID - DSENSONOperator ID - DSENSONOperator ID - DSENSONOperator ID - DSENSONPOCT-GLUCOSE [id number] 12:19:14 Test Item Value Reference Range Interpretation Comments POC-GLUCOSE METER 119 mg/dL 70-110 H : TESTED A T [facility] [address] (BEAKER) (test code [address], = 1538) [facility] [place]NOTE 2[place] [address]: Sports Management Internship/Techni hermes ID = [id number] for Garodrigo et, Andria SPUTUM CULTURE + GRAM [id number] 11:37:40 Test Item Value Reference Interpretation Comments [...] 1+ epithelial (BEAKER) (test code = cells 190000) GRAM STAIN RESULT 3+ Mixed alba (BEAKER) (test code = 204083) BLOOD GAS, [id number] 09:55:21 Test Item Value Reference Range Interpretation [...] (BEAKER) (test code = 1819) 50.0 POCT-GLUCOSE [id number] 06:00:21 Test Item Value Reference Range Interpretation Comments POC-GLUCOSE METER 111 mg/dL 70-110 H : TESTED A T [address] 1317 (BEAKER) (test code [address], = 1538) [facility] [place]NOTE 2[place] 77 478: Sports Management Internship/Techni hermes ID = [id number] for Katelin Bueno BASIC METABOLIC [id number] 05:12:30 Test Item Value Reference Range Interpretation [...] 1092) DATA TO CALCULA TE ESTIMATED GFR. Sports [employer] Internship ID - [id number] ID - [id number] ID - [id number] ID - LJSE95Iwqzaqok ID - QHIN59Veuolbwm ID - MJVB25Ciguzjiu ID - AQGQ05Irbxtfwl ID - HMAJ02Yggigtfu ID - OTTV72Xdrpxwwc ID - [id number] 04:51:56 Test Item Value Reference Range Interpretation Comments MAGNESIUM (BEAKER) (test code = 2.5 mg/dL 1.5-3.0 627) [employer] Internship ID - [id number] ID - [id number] ID - [id number] ID - [id number] 04:49:14 Test Item Value Reference Range Interpretation Comments PHOSPHORUS (BEAKER) (test code = 5.2 mg/dL 2.5-4.5 H 604) [employer] Internship ID - [id number] W/PLT COUNT & AUTO [id number] 04:47:50 Test Item Value Reference Range Interpretation [...] (BEAKER) (test code = 2801) BLOOD GAS, [id number] 03:25:36 Test Item Value Reference Range Interpretation [...] 1819) 50.0 RAD, CHEST, 1 VIEW, NON [id number] 02:39:00Reason for exam:->RF [facility] AND [facility] : 1975 Sex: [...] Gopal Valencia Verified Date/Time: 03/20/2022 02:39:09 POCT-GLUCOSE [id number] 23:33:17 Test Item Value Reference Range Interpretation Comments POC-GLUCOSE METER 102 mg/dL 70-110 : TESTED A T [facility] (BEAKER) (test code [address], = 1538) [place] [id number]: Sports Management Internship/Techni hermes ID = [id number] for Katelin Bueno BLOOD GAS, [id number] 12:43:30 Test Item Value Reference Range Interpretation [...] (BEAKER) (test code = 1819) 50.0 POCT-GLUCOSE [id number] 12:30:27 Test Item Value Reference Range Interpretation Comments POC-GLUCOSE METER 122 mg/dL 70-110 H : TESTED A T [facility] (BEAKER) (test code [address], = 1538) [place] [address]: Sports Management Internship/Techni hermes ID = [id number] for Suhail telles Amarisracquel RAD, CHEST, 1 VIEW, NON [id number] 07:57:00Reason for exam:->[facility] 1975 Sex: FFINAL REPORT Chest AP portable semierect Comparison exam: 03/18/2022 History provided: Respiratory failure Tube positions unchanged. Heart size magnified by projection. Airspace opacity predominating in the right lower lobe shows no significant change. Signed: Ryland Pierce VerifiedDate/Time: 03/19/2022 07:57:08 Reading Location: [facility] Radiology Reading Room POCT-GLUCOSE [id number] 06:49:16 Test Item Value Reference Range Interpretation Comments POC-GLUCOSE METER 112 mg/dL 70-110 H : TESTED A T [facility] 1317 (BEAKER) (test code [facility] [address], = 1538) [facility] [place] 2[place] 77 478: Sports Management Internship/Techni hermes ID = [id number] for Katelin Bueno BLOOD GAS, [id number] 06:19:32 Test Item Value Reference Range Interpretation [...] (test code = 1819) 50.0 BASIC METABOLIC [id number] 03:44:06 Test Item Value Reference Range Interpretation [...] 1092) DATA TO CALCULA TE ESTIMATED GFR. Sports Management Internship ID - LITOOperator ID - LITOOperator ID - LITOOperator ID - LITOOperator ID - LITOOperator ID - LITOOperator ID - LITOOperator ID - LITOOperator ID - LITOOperator ID - [id number] 03:41:45 Test Item Value Reference Range Interpretation Comments MAGNESIUM (BEAKER) (test code = 2.2 mg/dL 1.5-3.0 627) Sports Management Internship ID - LITOOperator ID - LITOOperator ID - LITOOperator ID - MICHAEL [id number] 03:39:08 Test Item Value Reference Range Interpretation Comments PHOSPHORUS (BEAKER) (test code = 3.4 mg/dL 2.5-4.5 604) Sports Management Internship ID - LITOCBC W/PLT COUNT & AUTO [id number] 03:30:16 Test Item Value Reference Range Interpretation [...] PERCENT (BEAKER) (test code = 2801) POCT-GLUCOSE [id number] 00:52:42 Test Item Value Reference Range Interpretation Comments POC-GLUCOSE METER 110 mg/dL 70-110 : TESTED A T [facility] 1317 (BEAKER) (test code [facility] [address], = 1538) [facility] [place]NOTE 2[place] 77 478: Sports Management Internship/Techni hermes ID = [id number] for Katelin Bueno POCT-GLUCOSE [id number] 17:35:56 Test Item Value Reference Range Interpretation Comments POC-GLUCOSE METER 110 mg/dL 70-110 : TESTED A T [facility] (BEAKER) (test code [address], = 1538) [facility] [place]NOTE 2[place] 77 478: Sports Management Internship/Techni hermes ID = [id number] for CATHRYN OLSONAKEMI [id number] 12:56:11 Test Item Value Reference Range Interpretation Comments POTASSIUM (BEAKER) (test code = 4.0 meq/L 3.6-5.5 379) Sports Management Internship ID - DSENSONOperator ID - DSENSONOperator ID - DSENSONOperator ID - DSENSONPOCT-GLUCOSE [id number] 12:42:14 Test Item Value Reference Range Interpretation Comments POC-GLUCOSE METER 122 mg/dL 70-110 H : TESTED A T [facility] (BEAKER) (test code [address], = 1538) [place] [address]: Sports Management Internship/Techni hermes ID = [id number] for FALA NA, FOLAKEMI RAD, CHEST, 1 VIEW, NON [id number] 09:14:00Reason for exam:->RF [facility] : 1975 Sex: [...] clinical setting.Small left-sided effusion. Signed: Harley Gentile MDReport Verified Date/Time: 03/18/2022 09:14:44 Reading Location: [facility] RadiologyReading Room SARS-COV2/RT-PCR ([facility])2022-03-18 09:12:55 Test Item Value Reference Range Interpretation Comments SARS-COV2/RT-PCR Negative Negative The SARS-Co V-2 target (test code = nucleic acids a re not [id number]) detected in thi s specimen. Negative result [...] revoked sooner. Fact Sheet for Healthcare Providers: https://www.[employer]/Documents/Xpert%20Xpress%20SARS%20CoV-2/Fact%20Sheets/302-3802%84FCZR-IDP-5%20 HEALTHCARE%20PROVIDERS%20FACT%20SHEET.pdf Fact Sheet for Healthcare Patients: https://www.[employer]/Documents/Xpert%20Xp ress%20SARS%20CoV-2/Fact%20Sheets/302-3801%49XPIV-LTO-7%20PATIENT%20FACT%20SHEET .pdfBLOOD GAS, [id number] 06:45:25 Test Item Value Reference Range Interpretation [...] (test code = 1819) 50.0 BASIC METABOLIC [id number] 04:10:00 Test Item Value Reference Range Interpretation [...] 1092) DATA TO CALCULA TE ESTIMATED GFR. Sports Management Internship ID - [id number] ID - tetwkenev997Hqhceobq ID - vgbskojmg854Nrexcadm ID - qqwxorcml424Ddlvyehl ID - ljfrvijyz502Uykxcovt ID - aozqoznbt901Imhilajj ID - wwkwtnmgv674Zupffjbr ID - kdrilnwiu653Jcomdhgc ID - xnobysvqw374Fmquttfh ID - [id number] 04:09:51 Test Item Value Reference Range Interpretation Comments MAGNESIUM (BEAKER) (test code = 2.0 mg/dL 1.5-3.0 627) Sports Management Internship ID - inobrkujl665Pyrzlvxd ID - iybdqjlcy706Rphrtupo ID - slpwrpkej618Kvahsxmv ID - [id number] 04:06:49 Test Item Value Reference Range Interpretation Comments PHOSPHORUS (BEAKER) (test code = 3.8 mg/dL 2.5-4.5 604) Sports Management Internship ID - gjticakqj435ZKD W/PLT COUNT & AUTO [id number] 03:57:39 Test Item Value Reference Range Interpretation [...] PERCENT (BEAKER) (test code = 2801) POCT-GLUCOSE [id number] 00:49:04 Test Item Value Reference Range Interpretation Comments POC-GLUCOSE METER 103 mg/dL 70-110 : TESTED A T [facility] (BEAKER) (test code [facility] [address], = 1538) [facility] [place]NOTE 2[place] 77 478: Sports Management Internship/Techni hermes ID = [id number] for Divina Can [id number] 00:01:42 Test Item Value Reference Range Interpretation Comments POTASSIUM (BEAKER) (test code = 3.5 meq/L 3.6-5.5 L 379) Sports Management Internship ID - gkgnahfnv632Whpcbyqk ID - hnwexbplz239Avuyghfb ID - alnwjuool122Jdtebbet ID - [id number] 20:10:40 Test Item Value Reference Range Interpretation Comments POTASSIUM (BEAKER) (test code = 3.3 meq/L 3.6-5.5 L 379) Sports Management Internship ID - JAQUELYNNEOperator ID - JAQUELYNNEOperator ID - JAQUELYNNEOperator ID - JAQUELYNNEPOCT-GLUCOSE [id number] 17:58:09 Test Item Value Reference Range Interpretation Comments POC-GLUCOSE METER 104 mg/dL 70-110 : TESTED A T [facility] (BEAKER) (test code [address], = 1538) [place] [address]: Sports Management Internship/Techni hermes ID = [id number] for FALA NA, FOLAKEMI POCT-GLUCOSE [id number] 13:37:00 Test Item Value Reference Range Interpretation Comments POC-GLUCOSE METER 121 mg/dL 70-110 H : TESTED A T [facility] (BEAKER) (test code [address], = 1538) [place] [address]: Sports Management Internship/Techni hermes ID = [id number] for FALA NA, FOLAKEMI [id number] 09:41:39 Test Item Value Reference Range Interpretation Comments POTASSIUM (BEAKER) (test code = 3.2 meq/L 3.6-5.5 L 379) Sports Management Internship ID - DSENSONOperator ID - DSENSONOperator ID - DSENSONOperator ID - DSENSONRAD, CHEST, 1 VIEW, NON [id number] 07:27:00Reason for exam:->RF [facility] : 1975 Sex: FFINAL REPORT Chest AP portable Comparison exam: 03/16/2022 History provided: Respiratory failure Tube positions unchanged. Heart size magnified by projection and poor inspiration. Airspace opacity persists in the right lower lobe. Left lung relatively clear. Signed: Ryland Pierce MDReport Verified Date/Time: 03/17/2022 07:27:55 Reading Location: [facility] Radiology Reading Room BASIC METABOLIC [id number] 04:56:25 Test Item Value Reference Range Interpretation [...] 1092) DATA TO CALCULA TE ESTIMATED GFR. Sports Management Internship ID - LITOOperator ID - LITOOperator ID - LITOOperator ID - LITOOperator ID - LITOOperator ID - LITOOperator ID - LITOOperator ID - LITOOperator ID - LITOOperator ID - [id number] 04:37:34 Test Item Value Reference Range Interpretation Comments MAGNESIUM (BEAKER) (test code = 4.0 mg/dL 1.5-3.0 H 627) Sports Management Internship ID - LITOOperator ID - LITOOperator ID - LITOOperator ID - MICHAEL [id number] 04:34:32 Test Item Value Reference Range Interpretation Comments PHOSPHORUS (BEAKER) (test code = 2.6 mg/dL 2.5-4.5 604) Sports Management Internship ID - LITOCBC W/PLT COUNT & AUTO [id number] 04:31:08 Test Item Value Reference Range Interpretation [...] (BEAKER) (test code = 2801) BLOOD GAS, [id number] 03:42:14 Test Item Value Reference Range Interpretation [...] FIO2 (BEAKER) (test code = 1819) 45.0 [id number] 00:50:58 Test Item Value Reference Range Interpretation Comments POTASSIUM (BEAKER) (test code = 3.4 meq/L 3.6-5.5 L 379) Sports Management Internship ID - LITOOperator ID - LITOOperator ID - LITOOperator ID - LITOPOCT- GLUCOSE [id number] 23:47:04 Test Item Value Reference Range Interpretation Comments POC-GLUCOSE METER 99 mg/dL 70-110 : TESTED A T [facility] (BEAKER) (test code = [address], 1538) [facility] [place]NOTE 2[place] 77 478: Sports Management Internship/Techni hermes ID = [id number] for Hosea Duran [id number] 19:40:32 Test Item Value Reference Range Interpretation Comments POTASSIUM (BEAKER) (test code = 3.4 meq/L 3.6-5.5 L 379) Sports Management Internship ID - [id number] ID - KUGX35Gdciiyjk ID - LHKN74Inlpvkqa ID - [id number] POCT-GLUCOSE [id number] 17:48:16 Test Item Value Reference Range Interpretation Comments POC-GLUCOSE METER 116 mg/dL 70-110 H : TESTED A T [facility] (BEAKER) (test code [address], = 1538) [place] [address]: Sports Management Internship/Techni hermes ID = [id number] for Amalia Sandoval BASIC METABOLIC [id number] 15:13:18 Test Item Value Reference Range Interpretation [...] 1092) DATA TO CALCULA TE ESTIMATED GFR. Sports Management Internship ID - [id number] ID - WTBFT419Laixwaie ID - WGAEB400Vqcbdoqd ID - XIKGV655Fgmnqoxb ID - XJGCQ555Bmorzixo ID - WDOJM490Uwmhddpx ID - IMWZD097Feprdqox ID - LAPGD795Htgetpoj ID - MESVM987Ieoobhir ID - GKPGL476Nrruiblz ID - OMIOS876Njypzlae ID - RTBBE568Dsdlqqwp ID - CJNDM023UXGA- GLUCOSE [id number] 11:45:59 Test Item Value Reference Range Interpretation Comments POC-GLUCOSE METER 132 mg/dL 70-110 H : TESTED A T [facility] (BEAKER) (test code [address], = 1538) [place] [address]: Sports Management Internship/Techni hermes ID = [id number] for Amalia Sandoval RAD, CHEST, 1 VIEW, NON [id number] 05:56:00Reason for exam:->[facility] : 1975 Sex: FFINAL [...] MDReport Verified Date/Time: 03/16/2022 05:56:16 BASIC METABOLIC [id number] 04:12:35 Test Item Value Reference Range Interpretation [...] 1092) DATA TO CALCULA TE ESTIMATED GFR. Sports Management Internship ID - NSUVAGIYAOperator ID - NSUVAGIYAOperator ID - NSUVAGIYAOperator ID - NSUVAGIYAOperatorID - NSUVAGIYAOperator ID - NSUVAGIYAOperator ID - NSUVAGIYAOperator ID - NSUVAGIYAOperator ID - NSUVAGIYAOperator ID - NSUVAGIYA [id number] 04:09:01 Test Item Value Reference Range Interpretation Comments MAGNESIUM (BEAKER) (test code = 2.0 mg/dL 1.5-3.0 627) Sports Management Internship ID - NSUVAGIYAOperator ID - NSUVAGIYAOperator ID - NSUVAGIYAOperator ID - [id number] 04:06:03 Test Item Value Reference Range Interpretation Comments PHOSPHORUS (BEAKER) (test code = 3.2 mg/dL 2.5-4.5 604) Sports Management Internship ID - NSUVAGIYACBC W/PLT COUNT & AUTO [id number] 03:50:46 Test Item Value Reference Range Interpretation [...] (BEAKER) (test code = 2801) BLOOD GAS, [id number] 03:41:57 Test Item Value Reference Range Interpretation [...] (BEAKER) (test code = 1819) 50.0 POCT-GLUCOSE [id number] 00:06:52 Test Item Value Reference Range Interpretation Comments POC-GLUCOSE METER 118 mg/dL 70-110 H : TESTED A T [facility] (BEAKER) (test code [facility] [address], = 1538) [place] [address]: Sports Management Internship/Techni hermes ID = [id number] for Divina Can [id number] 19:29:00 Test Item Value Reference Range Interpretation Comments POTASSIUM (BEAKER) (test code = 3.5 meq/L 3.6-5.5 L 379) Sports Management Internship ID - [id number] ID - [id number] ID - [id number] ID - [id number]-SJXILQL [id number] 17:40:34 Test Item Value Reference Range Interpretation Comments POC-GLUCOSE METER 129 mg/dL 70-110 H : TESTED A T [facility] [address] (BEAKER) (test code [address], = 1538) [place] [address]: Sports Management Internship/Techni hermes ID = [id number] for Ilda Downing se [id number] 14:36:37 Test Item Value Reference Range Interpretation Comments POTASSIUM (BEAKER) (test code = 3.3 meq/L 3.6-5.5 L 379) Sports Management Internship ID - JAQUELYNNEOperator ID - JAQUELYNNEOperator ID - JAQUELYNNEOperator ID - JAQUELYNNEPOCT-GLUCOSE [id number] 11:47:29 Test Item Value Reference Range Interpretation Comments POC-GLUCOSE METER 122 mg/dL 70-110 H : TESTED A T [facility] (BEAKER) (test code [address], = 1538) [place] [address]: Sports Management Internship/Techni hermes ID = [id number] for Joshua Stringer RAD, CHEST, 1 VIEW, NON [id number] 08:00:00Reason for exam:->RF [facility] : 1975 Sex: [...] MDReport Verified Date/Time: 03/15/2022 08:00:08 BASIC METABOLIC [id number] 04:55:21 Test Item Value Reference Range Interpretation [...] 1092) DATA TO CALCULA TE ESTIMATED GFR. Sports Management Internship ID - LITOOperator ID - LITOOperator ID - LITOOperator ID - LITOOperator ID - LITOOperator ID - LITOOperator ID - LITOOperator ID - LITOOperator ID - LITOOperator ID - [id number] 04:40:03 Test Item Value Reference Range Interpretation Comments MAGNESIUM (BEAKER) (test code = 2.1 mg/dL 1.5-3.0 627) Sports Management Internship ID - LITOOperator ID - LITOOperator ID - LITOOperator ID - MICHAEL [id number] 04:37:23 Test Item Value Reference Range Interpretation Comments PHOSPHORUS (BEAKER) (test code = 3.2 mg/dL 2.5-4.5 604) Sports Management Internship ID - LITOCBC W/PLT COUNT & AUTO [id number] 04:26:36 Test Item Value Reference Range Interpretation [...] (BEAKER) (test code = 2801) BLOOD GAS, [id number] 04:23:07 Test Item Value Reference Range Interpretation [...] (BEAKER) (test code = 1819) 60.0 POCT-GLUCOSE [id number] 00:27:40 Test Item Value Reference Range Interpretation Comments POC-GLUCOSE METER 107 mg/dL 70-110 : TESTED A T [facility] (BEAKER) (test code [facility], = 1538) [place] [address]: Sports Management Internship/Techni hermes ID = [id number] for Sylvia hackett Viktorda POCT-GLUCOSE [id number] 17:30:39 Test Item Value Reference Range Interpretation Comments POC-GLUCOSE METER 115 mg/dL 70-110 H : TESTED A T [facility] (BEAKER) (test code [facility] [place], = 1538) [place] [address]: Sports Management Internship/Techni hermes ID = [id number] for Aamlia Sandoval POCT-GLUCOSE [id number] 12:14:29 Test Item Value Reference Range Interpretation Comments POC-GLUCOSE METER 120 mg/dL 70-110 H : TESTED A T [facility] 1317 (BEAKER) (test code [address], = 1538) [facility] [place]NOTE 2] 77 478: Sports Management Internship/Techni hermes ID = [id number] for Ali, Amalia RAD, CHEST, 1 VIEW, NON [id number] 08:51:00Reason for exam:->[facility] : 1975 Sex: FFINAL REPORT Chest AP portable Comparison exam: 03/13/2022 History provided: Respiratoryfailure ET tube, NG tube, and right jugular line in place. Airspace disease predominating in the right lung persists. No pneumothorax. Signed: Ryland Pierce Verified Date/Time: 03/14/2022 08:51:09 Reading Location: [facility] Diagnostic Imaging Reading Room [place] [address] BASIC METABOLIC [id number] 05:01:15 Test Item Value Reference Range Interpretation [...] 1092) DATA TO CALCULA TE ESTIMATED GFR. Sports Management Internship ID - LITOOperator ID - LITOOperator ID - LITOOperator ID - LITOOperator ID - LITOOperator ID - LITOOperator ID - LITOOperator ID - LITOOperator ID - LITOOperator ID - LITOBLOOD GAS, [id number] 04:59:07 Test Item Value Reference Range Interpretation [...] FIO2 (BEAKER) (test code = 1819) 50.0 [id number] 04:27:26 Test Item Value Reference Range Interpretation Comments MAGNESIUM (BEAKER) (test code = 1.9 mg/dL 1.5-3.0 627) Sports Management Internship ID - LITOOperator ID - LITOOperator ID - LITOOperator ID - MICHAEL [id number] 04:24:46 Test Item Value Reference Range Interpretation Comments PHOSPHORUS (BEAKER) (test code = 3.2 mg/dL 2.5-4.5 604) Sports Management Internship ID - LITOCBC W/PLT COUNT & AUTO [id number] 04:06:29 Test Item Value Reference Range Interpretation [...] PERCENT (BEAKER) (test code = 2801) POCT-GLUCOSE [id number] 23:59:39 Test Item Value Reference Range Interpretation Comments POC-GLUCOSE METER 115 mg/dL 70-110 H : TESTED A T [facility] [address] (BEAKER) (test code [address], = 1538) [place] [address] 478: Sports Management Internship/Techni hermes ID = [id number] for Divina Can POCT-GLUCOSE [id number] 17:59:37 Test Item Value Reference Range Interpretation Comments POC-GLUCOSE METER 121 mg/dL 70-110 H : TESTED A T [facility] [address] (BEAKER) (test code [address], = 1538) [place] [address]: Sports Management Internship/Techni hermes ID = [id number] for Andria Jacobs POCT-GLUCOSE [id number] 12:57:25 Test Item Value Reference Range Interpretation Comments POC-GLUCOSE METER 104 mg/dL 70-110 : TESTED A T [facility] [address] (BEAKER) (test code [address], = 1538) [place] [address]: Sports Management Internship/Techni hermes ID = [id number] for Yuriyracquel Jana johnston RAD, CHEST, 1 VIEW, NON [id number] 07:20:00Reason for exam:->RF [facility]RAZ[facility] : 1975 Sex: FFINAL REPORT Chest AP portable Comparison exam: 03/12/2022 History provided: Respiratoryfailure ET tube, NG tube, and right jugular line remain in place. Bibasilar opacity consistent with atelectasis, pleural effusions and/or pneumonia not excluded. Quality of exam compromised by morbid obesity. Signed: Ryland Pierce Verified Date/Time: 03/13/2022 07:20:56 Reading Location: [facility] Reading Room BASIC METABOLIC [id number] 05:52:46 Test Item Value Reference Range Interpretation [...] 1092) DATA TO CALCULA TE ESTIMATED GFR. Sports Management Internship ID - NSUVAGIYAOperator ID - NSUVAGIYAOperator ID - NSUVAGIYAOperator ID - NSUVAGIYAOperatorID - NSUVAGIYAOperator ID - NSUVAGIYAOperator ID - NSUVAGIYAOperator ID - NSUVAGIYAOperator ID - NSUVAGIYAOperator ID - NSUVAGIYA HEPATIC FUNCTION [id number] 05:46:53 Test Item Value Reference Range Interpretation [...] (test code = 8 U/L 5-50 347) Sports Management Internship ID - NSUVAGIYAOperator ID - NSUVAGIYAOperator ID - NSUVAGIYAOperator ID - NSUVAGIYAOperatorID - NSUVAGIYAOperator ID - NSUVAGIYAOperator ID - NSUVAGIYA [id number] 05:46:53 Test Item Value Reference Range Interpretation Comments MAGNESIUM (BEAKER) (test code = 2.0 mg/dL 1.5-3.0 627) Sports Management Internship ID - NSUVAGIYAOperator ID - NSUVAGIYAOperator ID - NSUVAGIYAOperator ID - [id number] 05:43:31 Test Item Value Reference Range Interpretation Comments PHOSPHORUS (BEAKER) (test code = 4.9 mg/dL 2.5-4.5 H 604) Sports Management Internship ID - NSUVAGIYACBC W/PLT COUNT & AUTO [id number] 05:22:47 Test Item Value Reference Range Interpretation [...] (BEAKER) (test code = 2801) BLOOD GAS, [id number] 04:40:41 Test Item Value Reference Range Interpretation [...] FIO2 (BEAKER) (test code = 1819) 40.0 [id number] 02:20:25 Test Item Value Reference Range Interpretation Comments PARTIAL THROMBOPLASTIN 34.1 seconds 23.0-35.0 Final Information TIME (BEAKER) (test (Auto Ou tput) code = 760) POCT-GLUCOSE [id number] 00:56:56 Test Item Value Reference Range Interpretation Comments POC-GLUCOSE METER 118 mg/dL 70-110 H : TESTED A T [facility] [address] (BEAKER) (test code [address], = 1538) [facility] [place]NOTE 2] 77 478: Sports Management Internship/Techni hermes ID = [id number] for Obac Maddy salvador [id number] 17:58:41 Test Item Value Reference Range Interpretation Comments PARTIAL THROMBOPLASTIN 34.5 seconds 23.0-35.0 Final Information TIME (BEAKER) (test (Auto Ou tput) code = 760) POCT-GLUCOSE [id number] 11:18:19 Test Item Value Reference Range Interpretation Comments POC-GLUCOSE METER 83 mg/dL 70-110 : TESTED A T [facility] [address] (BEAKER) (test code = [address], 15[address]) [place] [address]: Sports Management Internship/Techni hermes ID = [id number] for John Doe [id number] 10:51:56 Test Item Value Reference Range Interpretation Comments PARTIAL THROMBOPLASTIN 32.4 seconds 23.0-35.0 Final Information TIME (BEAKER) (test (Auto Ou tput) code = 760) RAD, CHEST, 1 VIEW, NON [id number] 07:28:00Reason for exam:->RF [facility] : 1975 Sex: FFINAL REPORT Chest AP portable semierect Comparison exam: 03/11/2022 History provided: Respiratory failure ET tube and NG tube remain in place. Radiograph is limited by morbid obesity. Moderate right pleural effusion. Bibasilar atelectasis. Signed: Ryland Pierce MDReport Verified Date/Time: 03/12/2022 07:28:53 Reading Location: [facility] Radiology Reading Room BLOOD GAS, [id number] 06:01:09 Test Item Value Reference Range Interpretation [...] (test code = 1819) 50.0 BASIC METABOLIC [id number] 04:50:52 Test Item Value Reference Range Interpretation [...] 1092) DATA TO CALCULA TE ESTIMATED GFR. Sports Management Internship ID - [id number] ID - oyoi28Iyuajinz ID - wcaa60Vcuobxlq ID - ctqk30Ikpvfeja ID - kcau92Ofdninhc ID - [id number] ID - dsem11Icbxbkwf ID - gctm67Cduphnun ID - gbho71Wbfzvbeh ID - [id number] slightly ictericHEPATIC FUNCTION [id number] 04:50:46 Test Item Value Reference Range Interpretation [...] (test code = 9 U/L 5-50 347) [employer] ID - [id number] ID - [id number] ID - pyqk01Kprokmqd ID - pruh69Miqrbbac ID - xtht36Cusdqbvz ID - qfro08Qhzoyakk ID - [id number] slightly [id number] 04:48:18 Test Item Value Reference Range Interpretation Comments MAGNESIUM (BEAKER) (test code = 1.8 mg/dL 1.5-3.0 627) [employer] ID - [id number] ID - [id number] ID - qbrz96Bmlirjxc ID - [id number] 04:44:57 Test Item Value Reference Range Interpretation Comments PHOSPHORUS (BEAKER) (test code = 3.1 mg/dL 2.5-4.5 604) [employer] ID - [id number] W/PLT COUNT & AUTO [id number] 04:34:14 Test Item Value Reference Range Interpretation [...] 0-0 PERCENT (BEAKER) (test code = 2801) [id number] 02:15:40 Test Item Value Reference Range Interpretation Comments PARTIAL THROMBOPLASTIN 32.0 seconds 23.0-35.0 Final Information TIME (BEAKER) (test (Auto Ou tput) code = 760) [id number] 17:24:06 Test Item Value Reference Range Interpretation Comments PARTIAL THROMBOPLASTIN 29.1 seconds 23.0-35.0 Final Information TIME (BUSTER) (test (Auto Ou tput) code = 760) POCT-GLUCOSE [id number] 17:18:38 Test Item Value Reference Range Interpretation Comments POC-GLUCOSE METER 76 mg/dL 70-110 : Notified RN/MD: TESTED (BUSTER) (test code = AT [facility] [address]) [place] [address]: [employer]ship/Techni hermes ID = [id number] for Ritesh h, Lorita TROPONIN [id number] 12:43:41 Test Item Value Reference Range Interpretation [...] failure, acidosis, acute neurological disease, and persistent tachyarrhythmia.[employer] Internship ID - [id number] METER 2022-03-11 11:55:43 Test Item Value Reference Range Interpretation Comments POC-GLUCOSE METER 60 mg/dL 70-110 L : Notified RN/MD: TESTED ([facility]) (test code = AT [facility] [address]) [place] [id number]: [employer] Internship/Techni hermes ID = [id number] for Ritesh h, Lorita RAD, CHEST, 1 VIEW, NON [id number] 10:13:00Reason for exam:->s/p Rt IJ cvc placementF[facility]: [facility]RAZYNA JACOB : 1975 Sex: [...] no gross evidence of complication. Signed: Renny Samanoort Verified Date/Time: 03/11/2022 10:13:25 Reading Location: [address] Body Reading Room ALYSIS W/ REFLEX URINE [id number] 10:06:46 Test Item Value Reference Range Interpretation [...] code = 1663) SOURCE(BEAKER) (test code = 1865) HCG, SERUM, [id number] 06:08:53 Test Item Value Reference Range Interpretation Comments TEST SERUM (BEAKER) (test Negative code = 584) CBC W/PLT COUNT & AUTO [id number] 05:55:16 Test Item Value Reference Range Interpretation [...] (test code = 2801) TSH/FREE T4 IF [id number] 05:49:32 Test Item Value Reference Range Interpretation Comments THYROID STIMULATING HORMONE 3.330 uIU/mL 0.350-5.500 (BEAKER) (test code = 772) [employer] Internship ID - LITOBASIC METABOLIC [id number] 05:45:36 Test Item Value Reference Range Interpretation [...] 1092) DATA TO CALCULA TE ESTIMATED GFR. Sports Management Internship ID - LITOOperator ID - LITOOperator ID - LITOOperator ID - LITOOperator ID - LITOOperator ID - LITOOperator ID - LITOOperator ID - LITOOperator ID - LITOOperator ID - LITOHEPATIC FUNCTION [id number] 05:41:27 Test Item Value Reference Range Interpretation [...] (test code = 12 U/L 5-50 347) [employer] Internship ID - LITOOperator ID - LITOOperator ID - LITOOperator ID - LITOOperator ID - LITOOperator ID - LITOOperator ID - LITOTROPONIN [id number] 05:41:26 Test Item Value Reference Range Interpretation [...] failure, acidosis, acute neurological disease, and persistent tachyarrhythmia.[employer] Internship ID - [id number] 05:41:10 Test Item Value Reference Range Interpretation Comments MAGNESIUM (BEAKER) (test code = 1.8 mg/dL 1.5-3.0 627) Sports Management Internship ID - LITOOperator ID - LITOOperator ID - LITOOperator ID - [place] PROTHROMBIN TIME/[id number] 05:40:48 Test Item Value Reference Range Interpretation Comments PROTIME (BEAKER) 13.0 seconds 9.3-12.0 H Final Infor mation (test code = 759) (Auto Outp ut) INR (BEAKER) (test 1.20 See_Comment Final Inf ormation code = 370) (Auto Output) [Automated mess age] The system whic h generated this result transmitted ref erence range: <=5.90. The reference range was not used to int erpret this result as normal/abnormal . RECOMMENDED COUMADIN/WARFARIN INR THERAPY RANGESSTANDARD DOSE: 2.0 - 3.0 Includes: PROPHYLAXIS for venous thrombosis, systemic embolization; TREATMENT for venous thrombosis and/or pulmonary embolus.HIGH RISK: Target INR is 2.5-3.5 for patients with mechanical heart valves.[id number] 05:38:10 Test Item Value Reference Range Interpretation Comments PHOSPHORUS (BEAKER) (test code = 3.4 mg/dL 2.5-4.5 604) Sports Management Internship ID - LITOLACTIC ACID, [id number] 05:27:00 Test Item Value Reference Range Interpretation Comments LACTATE BLOOD 1.35 mmol/L See_Comment Specimen sligh tly VENOUS (2) (BEAKER) hemolyze d [Automated (test code = 2872) message] The system which generated this result transmit sandy reference range : 0.50-<2.00. The reference range was not used to interpr et this result as normal/abnormal . Sports Management Internship ID - LITOOperator ID - LITOOperator ID - LITOOperator ID - LITORAD, CHEST, 1 VIEW, NON [id number] 04:08:00Reason for exam:->CHFShould this be performed at the bedside?->Yes [facility] JACOB : 1975 Sex: FFINAL REPORT RAD, CHEST, 1 VIEW, NON DEPT INDICATION: CHF COMPARISON: Prior day's examFINDINGS: Portable frontal view of the chest. IMPRESSION: Examination is significantly limited by body habitus and suboptimal beam penetration.Support Lines: Enteric tube descends towards the stomach with the tip not well seen. Endotracheal tube is also not well seen and appears to terminate within the mid thoracic trachea although the trae is obscured by overlying soft tissues. Lungs and pleura: Patchy hazy airspace opacities bilaterally compatible with edema and there are small bilateral pleural effusions. No pneumothorax. Heart and mediastinum: Cardiomediastinal silhouette is enlarged compatible with cardiomegaly or pericardial effusion. Additional findings: None. Signed: Gopal Valencia MDReport Verified Date/Time: 03/11/2022 04:08:35 RAD, ABDOMEN/KUB 1 VIEW [id number] 04:03:00Reason for exam:->NGTShould this be performed at the bedside?->Yes [facility]ACOB : 1975 Sex: FFINAL REPORT EXAM/TECHNIQUE: RAD, ABDOMEN/KUB 1 VIEW AP INDICATION: Gastric tube. COMPARISON: None. FINDINGS: Gastric tube and sidehole terminate in the expected location of the stomach. Impression: Gastric tube and sidehole terminate in the expected location of the stomach. Signed: Ed Guerrero MDReport Verified Date/Time: 03/11/2022 04:03:12 HEMOGLOBIN [id number] 03:42:05 Test Item Value Reference Range Interpretation Comments HEMOGLOBIN A1C (BEAKER) (test code = 5.3 % 4.3-6.1 368) Sports Management Internship ID - LITOB-TYPE NATRIURETIC FACTOR (BNP)2022-03-11 02:25:07 Test Item Value Reference Range Interpretation Comments B-TYPE NATRIURETIC PEPTIDE (BEAKER) 127 pg/mL 0-100 H (test code = 700) Sports Management Internship ID - LITOTROPONIN [id number] 02:24:29 Test Item Value Reference Range Interpretation [...] failure, acidosis, acute neurological disease, and persistent tachyarrhythmia.Sports Management Internship ID - LITOCBC W/PLT COUNT & AUTO [id number] 02:23:05 Test Item Value Reference Range Interpretation [...] (BEAKER) (test code = 2801) BLOOD GAS, [id number] 02:21:36 Test Item Value Reference Range Interpretation [...] (BEAKER) (test code = 1819) 60.0 POCT-GLUCOSE [id number] 01:51:10 Test Item Value Reference Range Interpretation Comments POC-GLUCOSE METER 88 mg/dL 70-110 : TESTED A T [facility] [address] (BEAKER) (test code = [address]) [facility] [place]NOTE 2] [address]: Sports Management Internship/Techni hermes ID = [id number] for Roberta Lester - XR CHEST 1 [id number] 17:09:00 [facility] : 1975 Sex: F Name: GRAZYNA JACOB [facility] : 1975 Age/S: 46 / F [address] Unit #: [id number] Loc: [place] [address] Phys: Darryl Haney MD Acct: [id number] Dis Date: Status: ADM IN PHONE #: [phone] Exam Date: 07/17/2021 1640 FAX #: Reason: SOB EXAMS: CPT: [id number] XR CHEST 1 V 88596 Fl uoro Time: DAP (Gy m2): Air Kerma (mGy): STUDY: Chest radiograph HISTORY: Shortness of breath. COMPARISON: 07/12/2021 TECHNIQUE: Frontal view of the chest. SITE: [facility] FINDINGS: The cardiac silhouette isenlarged, stable in size. Coronary vascular congestion persists. Left perihilar and left basilar opacities as well as a moderate left pleural effusion are without significant change. There is no discernible pneumothorax. IMPRESSION: No significant interval change. at 1709 Reported and signed by: Blaine Gill M.D. CC: Darryl Haney MD; Astrid Olmos MD PAGE 1 Signed Report Name: GRAZYNA JACOB [facility] : 1975 Age/S: 46 / F [address] Unit #: [id number] Loc: [place] [address] Phys: Darryl Haney MD Acct: [id number] Dis Date: Status: ADM IN PHONE #: [phone] Exam Date: 07/17/2021 1640 FAX #: Reason: SOB EXAMS: CPT: [id number] XR CHEST 1 V 39014 Fluoro Time: DAP (Gy m2): Air Kerma (mGy): (Continued) Technologist:Antonella Walker, RT(R) Trnscb Date/Time: 07/17/2021 (170) tSERGERH16 Orig Print D/T: S: 07/17/2021 (8648) PAGE 2 Signed Report PROTHROMBIN [id number] 06:48:00 Test Item Value Reference Range Interpretation [...] Infarction (to prevent recurrent infar ct). PROTHROMBIN [id number] 11:32:00 Test Item Value Reference Range Interpretation [...] Infarction (to prevent recurrent infar ct). PROTHROMBIN [id number] 18:18:00 Test Item Value Reference Range Interpretation [...] (to prevent recurrent infar ct). CBC W/AUTO [id number] 14:36:00 Test Item Value Reference Range Interpretation [...] code NO DIFF/SCN CRITERIA = MDIFF) RBC [id number] 14:36:00 Test Item Value Reference Range Interpretation Comments HYPOCHROMIA (test code = HYPO) 2+ ON SCAN NONE A POIKILOCYTOSIS (test code = POIK) 2+ ON SCAN NONE A ANISOCYTOSIS (test code = ANISO) 3+ NONE A MICROCYTOSIS (test code = MICR) 3+ ON SCAN NONE A ROULEAUX (test code = ROU) 1+ ON SCAN NONE A CBC W/AUTO [id number] 14:35:00 Test Item Value Reference Range Interpretation [...] NO DIFF/SCN CRITERIA = MDIFF) CBC W/AUTO [id number] 14:35:00 Test Item Value Reference Range Interpretation [...] NO DIFF/SCN CRITERIA = MDIFF) CBC W/AUTO [id number] 13:53:00 Test Item Value Reference Range Interpretation [...] code = DIFF/SCN CRITERIA MDIFF) BASIC METABOLIC [id number] 13:51:00 Test Item Value Reference Range Interpretation [...] code = CA) 8.8 MG/DL 8.5-10.1 N [id number] 13:51:00 Test Item Value Reference Range Interpretation Comments MAGNESIUM (test code = MAG) 2.1 MG/DL 1.8-2.4 N GLUCOSE BEDSIDE [id number] 13:20:00 Test Item Value Reference Range Interpretation Comments GLUCOSE BEDSIDE TESTING (test code 110 mg/dL 70-110 N = GLUBED) PROTHROMBIN [id number] 06:00:00 Test Item Value Reference Range Interpretation [...] Infarction (to prevent recurrent infar ct). VANCOMYCIN [id number] 21:30:00 Test Item Value Reference Range Interpretation Comments VANCOMYCIN TROUGH (test code = 25.2 mcG/ML 10-20 H VANCT) PROTHROMBIN [id number] 06:22:00 Test Item Value Reference Range Interpretation [...] recurrent infar ct). - XR CHEST 1 [id number] 15:50:00 [facility] : 1975 Sex: F Name: GRAZYNA JACOB [facility] : 1975 Age/S: 46 / F [address] Unit #: [id number] Loc: [place] [address] Phys: Darryl Haney MD Acct: [id number] Dis Date: Status: ADM IN PHONE #: [phone] Exam Date: 07/12/2021 1450 FAX #: Reason: sob EXAMS: CPT: [id number] XR CHEST 1 V 72883 Flu carlos Time: DAP (Gy m2): Air Kerma (mGy): [...] PAGE 1 Signed Report Name: GRAZYNA JACOB : 1975 Age/S: 46 / F [address] Unit #: [id number] Loc: [place] [address] Phys: Darryl Haney MD Acct: [id number] Dis Date: Status: ADM IN PHONE #: [phone] Exam Date: 07/12/2021 1450 FAX #: Reason: sob EXAMS: CPT: [id number] XR CHEST 1 V 79409 Fluoro Time: DAP (Gy m2): Air Kerma (mGy): (Continued) Technologist: Karen Mathews, RT(R)(CT); Vignesh Redd, RT(R)(CT); .Trnscb Date/Time: 07/12/2021 (155) t.SDR.TS14 Orig Print D/T: S: 07/12/2021 (1114) PAGE 2 Signed ReportBASIC METABOLIC [id number] 05:30:00 Test Item Value Reference Range Interpretation [...] 8.6 MG/DL 8.5-10.1 N CA) BASIC METABOLIC [id number] 05:18:00 Test Item Value Reference Range Interpretation [...] = CA) 8.6 MG/DL 8.5-10.1 N PROTHROMBIN [id number] 05:07:00 Test Item Value Reference Range Interpretation [...] (to prevent recurrent infar ct). ARTERIAL BLOOD [id number] 12:36:00 Test Item Value Reference Range Interpretation [...] (test No Circ.CHK POSITIVE code = MODALL) PaO2/[id number] 12:36:00 Test Item Value Reference Range Interpretation Comments PaO2/FiO2 (test code mm/Hg See_Comment [Autom ated message] The = [id number]) system which ge nerated this result transmit sandy reference range : 200. The reference range was not used to interpr et this result as lucila l/abnormal. ARTERIAL BLOOD [id number] 12:36:00 Test Item Value Reference Range Interpretation [...] (test No Circ.CHK POSITIVE code = MODALL) PaO2/[id number] 12:36:00 Test Item Value Reference Range Interpretation Comments PaO2/FiO2 (test 202.8 mm/Hg See_Comment [Automated message] The code = KQS7CYA1) system whic h generated this result tra nsmitted reference range : 200. The reference r will was not used to int erpret this result as normal/abnormal . PROTHROMBIN [id number] 05:50:00 Test Item Value Reference Range Interpretation [...] (to prevent recurrent infar ct). THROMBOPLASTIN TIME [id number] 05:50:00 Test Item Value Reference Range Interpretation Comments THROMBOPLASTIN TIME PARTIAL 30.5 SECONDS 26-35 N (test code = PTT) [id number] 05:50:00 Test Item Value Reference Range Interpretation [...] STS AND APPROPRIATECLIN ICAL EUALUATIONS. RULE OUT SC [id number] 05:42:00 Test Item Value Reference Range Interpretation [...] yby method. UA RFLX MICR CULT IF [id number] 05:13:00 Test Item Value Reference Range Interpretation [...] H (test code = PROBNP) CBC W/AUTO [id number] 02:26:00 Test Item Value Reference Range Interpretation [...] NT WITH AUTO DIFFERENTI AL. CBC W/AUTO [id number] 02:26:00 Test Item Value Reference Range Interpretation [...] CONSISTA NT WITH AUTO DIFFERENTI AL. RBC [id number] 02:26:00 Test Item Value Reference Range Interpretation Comments HYPOCHROMIA (test code = HYPO) 1+ ON SCAN NONE ANISOCYTOSIS (test code = 1+ NONE ANISO) STOMATOCYTES (test code = STO) TRACE ON SCAN NONE CBC W/AUTO [id number] 02:26:00 Test Item Value Reference Range Interpretation [...] CONSISTA NT WITH AUTO DIFFERENTI AL. LACTIC [id number] 01:43:00 Test Item Value Reference Range Interpretation Comments LACTIC ACID (test code = LACT) 1.2 mmol/L 0.4-2.0 N BASIC METABOLIC [id number] 01:41:00 Test Item Value Reference Range Interpretation [...] 8.5-10.1 N Completed by Nursing: NOHEPATIC FUNCTION [id number] 01:41:00 Test Item Value Reference Range Interpretation [...] N code = ALKP) Completed by Nursing: [id number] 01:41:00 Test Item Value Reference Range Interpretation [...] method. Completed by Nursing: NOCOVID 19 INHOUSE [id number] 01:36:00 Test Item Value Reference Range Interpretation Comments COVID 19 INHOUSE AG NEGATIVE Negative Per manu facturer, (test code = negative result s should [id number]) be treated aspr esumptive and, if inconsi [...] symptoms co nsistent with COVID-19. CBC W/AUTO [id number] 01:15:00 Test Item Value Reference Range Interpretation [...] DIFF/SCN CRITERIA MDIFF) - XR CHEST 1 [id number] 23:46:00 [facility] : 1975 Sex: F Name: [place] : 1975 Age/S: 46 / F [address] Unit #: [id number] Loc: [place] [address] Phys: Ruddy Vargas MD Acct: [id number] Dis Date: Status: PRE ER PHONE #: [phone] Exam Date: 07/10/20212334 FAX #: Reason: Code Sepsis EXAMS: CPT: [id number] XR CHEST 1V 18912 Fluoro Time: DAP (Gy m2): Air Kerma [...] with findings suggestive of pulmonary edema. at 1116 Reported and signed by: Flower Villasenor MD CC: Ruddy Vargas MD PAGE 1 Signed Report Name: GRAZYNA JACOB [place] : 1975 Age/S: 46 / F [address] [place] [address] Unit #: [id number] Loc: [place] [address] Phys: Ruddy Vargas MD Acct: [id number] Dis Date: Status: PRE ER PHONE #: [phone] Exam Date: 07/10/2021 2335 FAX #: Reason: Code Sepsis EXAMS: CPT: [id number] XR CHEST 1 V 37405 Fluoro Time: DAP (Gy m2): Air Kerma (mGy): (Continued) Technologist: RT Celeste(R) Trnscb Date/Time: 07/10/2021 (7842) tCHAPO.EB14 Orig Print D/T: S: 07/10/2021 (3849) PAGE2 Signed ReportPT/[id number] 15:42:00 Test Item Value Reference Range Interpretation Comments PT (test code = 15.7 See_Comment H [Automated message] 5902-2) The system [employer] generated this result transmitted ref erence range: 11.7 - 1 4.5 Seconds. The re ference range was not u sed to interpret this result as normal/abnor mal. INR (test code = 1.3 Refer to INR 2.0 - 3.0 f or moderate 09718738) therapeutic ranges intensity anticoagulation 2.5 - 3.5 for high in tensity anticoagulation Lab Interpretation Abnormal (test code = 48608-0) [facility]12 LEAD [id number] 11:17:5812 LEAD EKG FOR [facility] Test Date: 7796-21-31Epx Name: GRAZYNA JACOB Department: 5GMSPatient ID: [id number] Room: Gender: F [place]: Doc: 1975 Requested By: STEVEN Order Number: [id number] Reading MD: Mee Vincent MeasurementsIntervals Marshall Rate: 101 P: ID: 0 QRS: 56QRSD: 112 T: 42QT: 381 QTc: 439 Interpretive StatementsATRIAL FIBRILLATION WITH RAPID VENTRICULAR RESPONSELOW QRS VOLTAGE IN PRECORDIAL LEADS [QRS DEFLECTION < 1.0 mV IN CHEST LEADS]MODERATE INTRAVENTRICULAR CONDUCTION DELAY [110+ ms QRS DURATION]NONSPECIFIC T-WAVE ABNORMALITYABNORMAL RHYTHM ECGReviewed by Electronically Signed On 05-25-2021 20:02:19 CDT by Mee Jeffries [place] [address] LEAD [id number] 11:17:5812 LEAD EKG FOR [facility] Test Date: 6415-77-15Fpr Name: GRAZYNA DESTREHAN Department: 5GMSPatient ID: [id number] Room: Gender: F [place]: Doc: 1975 Requested By: PUNEET LOPEZ Order Number: [id number] Reading MD: Mee Vincent MeasurementsIntervals Marshall Rate: 101 P: ID: 0 QRS: 56QRSD: 112 T: 42QT: 381 QTc: 439 Interpretive StatementsATRIAL FIBRILLATION WITH RAPIDVENTRICULAR RESPONSELOW QRS VOLTAGE IN PRECORDIAL LEADS [QRS DEFLECTION < 1.0 mV IN CHEST LEADS]MODERATE INTRAVENTRICULAR CONDUCTION DELAY [110+ ms QRS DURATION]NONSPECIFIC T-WAVE ABNORMALITYABNORMAL RHYTHM ECGReviewed by Electronically Signed On 05-25-2021 20:02:19 CDT by [facility]ee Her[facility] Met[facility] [id number] 05:32:00 Test Item Value Reference Range Interpretation Comments Sodium (test code = 141 mmol/L 069-297 4577-2) Potassium (test code = 3.8 mmol/L 3.5-5.1 2823-3) Chloride (test code = 93 mmol/L 98-107 L 2075-0) CO2 (test code = 45 mmol/L 21-31 H 02969249) Urea Nitrogen (test 8.0 mg/dL 7-25 code = 89655426) Creatinine (test code = 0.6 mg/dL 0.6-1.2 28730379) Glucose (test code = 98 mg/dL 70-110 44121176) Calcium (test code = 9.1 mg/dL 8.6-10.3 72451419) eGFR If Am >120 See_Comment [Automat ed message] (test code = 60322707) The s ystem which generated this result transmit sandy reference range : >=90 mL/min/1.7 3 m2. The reference r will was not used to interpret this result as normal/abnormal . eGFR If non- Am 111 See_Comment [Aut omated message] (test code = 28802276) The s ystem which generated this result transmit sandy reference range : >=90 mL/min/1.7 3 m2. The reference r will was not used to interpret this result as normal/abnormal . Anion Gap (test code = 3 mmol/L 5-16 L 22357002) Lab Interpretation Abnormal (test code = 62861-2) [facility]59[facility] 05:32:00 Test Item Value Reference Range Interpretation Comments Magnesium (test code = 88504931) 2.0 mg/dL 1.9-2.7 Lab Interpretation (test code = Normal 63363-5) [facility]/[id number] 05:07:00 Test Item Value Reference Range Interpretation Comments WBC (test code = 6690-2) 7.0 K/uL 4.5-11 RBC (test code = 789-8) 4.31 See_Comment [Au tomated message] The system [employer] generated this result transmit sandy reference range [...] (test code = 54.8 fL 36.4-46.3 H 42267-9) Platelet (test code = 294 K/uL 150-400 777-3) Mean Platelet Volume 10.4 fL 9.4-12.4 (test code = 98136-7) Percent NRBC (test code 0.0 % = 29644597) Neutrophil (test code = 71.0 % 34-70 H 770-8) Lymphs (test code = 15.9 % 20-50 L 736-9) Monocytes (test code = 10.3 % 5-12 5905-5) Eos (test code = 713-8) 1.6 % 0.7-5 Basos (test code = 0.9 % 0.1-1.2 706-2) Immature Granulocytes 0.3 % 0-0.5 (test code = 90942411) Neutrophils (Absolute) 4.97 K/uL 1.56-6.13 (test code = 15279339) Lymphs (Absolute) (test 1.11 K/uL 1.18-3.74 L code = 34923927) Monocytes(Absolute) 0.72 K/uL 0.24-0.36 H (test code = 80038964) Eos (Absolute) (test 0.11 K/uL 0.04-0.36 code = 47027748) Baso (Absolute) (test 0.06 K/uL 0.01-0.08 code = 54429674) Immature Grans (Abs) 0.02 K/uL 0-0.03 (test code = 01443519) Absolute NRBC (test code 0.00 K/uL = 01355520) Lab Interpretation (test Abnormal code = 89944-5) [facility] HealthcarePregnancy [id number] 16:53:00 Test Item Value Reference Range Interpretation Comments (test code = 36129104) Negative Negative Lab Interpretation (test code = Normal 84860-1) [facility] HealthcarePTT - every 6 hours x 24 [id number] 16:09:00 Test Item Value Reference Range Interpretation Comments PTT (test code = 45.1 See_Comment H The recomme nded 83726536) therapuetic ran ge is an APTT 61-103 seconds which corresponds to 0.3-0.7 anti Xa u/ml. [Automated mess age] The system [employer] generated this result transmitted ref erence range: 23.9 - 3 6.0 Seconds. The reference range was not used to int erpret this result as normal/abnormal . Lab Interpretation (test Abnormal code = 46821-1) [facility] HealthcareNM LUNG PERFUSION IMAGING [id number] 18:46:40IMPRESSION: 1. Scan findings strongly suggest that [...] silhouette.Signed By: Crissy Dupree MD, 05/22/2021 6:46 PMKindred HealthcareQaderiD-Upfvu8785-95-06 19:13:00 Test Item Value Reference Range Interpretation Comments D-Dimer (test code = 3.22 See_Comment H Values of 17044544) quantitative D- Dimer less than 0.40 ug/mL [...] . Lab Interpretation (test Abnormal code = 08742-7) [facility] HealthcareKavldaKduwaoyxdw6900-36-49 18:55:00 Test Item Value Reference Range Interpretation Comments Color (test code = Yellow Colorless, Straw, 13683289) Yellow Clarity (test code = Clear Clear 16162198) Spec [place], Ur (test 1.012 1.001-1.035 code = 27711194) pH, Ur (test code = 6.0 5.0-8.0 79331408) Protein, Ur (test code Negative Negative mg/dL = 42102731) Glucose, Ur (test code Negative Negative mg/dL = 26174770) Ketone, Ur (test code = Negative Negative mg/dL 25792926) Bilirubin, Ur (test Negative Negative mg/dL code = 99596033) Nitrite, Ur (test code Negative Negative = 61408000) Leukocyte (test code = Negative Negative mg/dL 22027559) Blood, Ur (test code = 1+ Negative mg/dL A 65650922) RBC (test code = 5 See_Comment H [Automated message] 39475424) The system [employer] generated this result transmit sandy reference range : 0 - 4 /HPF. The reference range was not used to interpret this result as normal/abnormal . WBC (test code = 1 See_Comment [Automated message] 06592139) The system [employer] generated this result transmit sandy reference range : 0 - 5 /HPF. The reference range was not used to interpret this result as normal/abnormal . Epithelial Cell (test <1 See_Comment [Auto mated message] code = 20576583) The system which generated this result transmit sandy reference range : <=1 /HPF. The refer ence range was not u sed to interpret th is result as normal/abnormal . Mucous (test code = Present None seen /HPF A 29487828) Urobilinogen, Ur (test <1.0 See_Comment [Aut omated message] code = 30110860) The system which generated this result transmit sandy reference range : <1.0 EU/dL. The reference range was not used to interpret this result as normal/abnormal . Lab Interpretation Abnormal (test code = 78488-0) [facility] LEAD [id number] 17:44:5512 LEAD EKG FOR [facility] Test Date: 7033-50-76Chf Name: GRAZYNA JACOB Department: 5520Patient ID: [id number] Room: Gender: F Shrub Planter: [id number]: 1975 Requested By: PUNEET LOPEZ Order Number: [id number] Colten MD: Mee Vincent MeasurementsIntervals Marshall Rate: 115P: ID: 0 QRS: 51QRSD: 116 T: 0QT: 169 QTc: 237 Interpretive StatementsATRIAL FLUTTER/TACHYCARDIA WITH RAPID VENTRICULAR RESPONSELOW QRS VOLTAGE IN PRECORDIAL LEADSMODERATE INTRAVENTRICULAR CONDUCTION DELAYNONSPECIFIC T-WAVE ABNORMALITYABNORMAL RHYTHM ECGReviewed by Electronically Signed On 05-22-2021 9:24:28 CDT [address]asqueztomyProv[facility]12 LEAD [id number] 17:44:5512 LEAD EKG FOR [facility] Test Date: [id number] Name: GRAZYNA JACOB Depart ent: 5520Patient ID: [id number] Room: Gender: F Shrub Planter: [id number]: 1975 Requested By: PUNEET LOPEZ Order Number: [id number] Reading MD: Mee Vincent MeasurementsIntervals Marshall Rate: 115P: ID: 0 QRS: 51QRSD: 116 T: 0QT: 169 QTc: 237 Interpretive StatementsATRIAL FLUTTER/TACHYCARDIA WITH RAPID VENTRICULAR RESPONSELOW QRS VOLTAGE IN PRECORDIAL LEADSMODERATE INTRAVENTRICULAR CONDUCTION DELAYNONSPECIFIC T-WAVE ABNORMALITYABNORMAL RHYTHM ECGReviewed by Electronically Signed On 05-22-2021 9:24:28 CDT by Mee LizTrinity HealthTRANSTHORACIC ECHO (TTE)2021-05-21 10:14:00TRANSTHORACIC ECHO (TTE) Transthoracic Echo Report GRAZYNA JACOB Age: 46 Gender: F : 1975 Exam Date: 05/21/2021 06:37 Exam Location: [facility] Echo Ordering Phys: PUNEET LOPEZ Referring Phys: Reading Phys: Mee Vincent MD Fellow Phys: Fellow Phys: Nephrology Nurse: Taina Rene Reason For Exam: Indications: new afib, Other specified conduction disorders ICD-9 Codes: I 45.89 Exam Type: TRANSTHORACIC ECHO (TTE) Procedure CPT: 23692 Addtional CPT: Ht (in): 67 BSA: 3.14 [...] Diameter PLAX 4.1 cm 2.5-4.0 (M) / 2.2- 3.5 (F) LV Fractional Shortening PLAX 22.2 % IVS Diastolic Thickness 1.6 cm 0.6- 1.0 (M) / 0.6-0.9 (F) LVPW Diastolic Thickness 1.2 cm 0.6-1.0 (M) / 0.6-0.9 (F) LV Relative Wall Thickness 0.53 <= 0.42 LVOT Diameter 2.3 cm Aortic Root D iameter 3.4 cm LA Systolic Diameter LX 3.7 cm LA Ao Ratio 1.1 LV Mass by linear method 316 g LV Massby linear method Index 101 g/m2 FINDINGS Left [...] administered for better endocardial visualization. Normal left ventricularsize. Mild to moderate concentric left ventricular hypertrophy. Grossly, LVEF appears to be around 40-50%. Poor endocardial visualization. Flattened septum in systole and diastole consistent with rightventricle pressure and volume overload. Cannot grade LV diastology due to atrial fibrillation. Rightventricle not well visualized. Grossly appears dilated. Compared to prior echo LVEF decreased and patient is now in atrial fibrillation. Both studies are technically difficult due to patient body habitu s. Mee Vincent MD (Electronically Signed) Final Date: [...] Mass by linear method Index 101 g/m2 [facility] 10:14:00TRANSTHORACIC ECHO (TTE) Transthoracic Echo Report GRAZYNA JACOB Age: 46 Gender: F : 1975 Exam Date: 05/21/2021 06:37 Exam Location: [facility] Echo Ordering Phys: PUNEET LOPEZ Phys: Reading Phys: Mee Vincent MD Fellow Phys: Fellow Phys: Nephrology Nurse: Taina Rene Reason For Exam: Indications: new afib, Other specified conduction disorders ICD-9 Codes: I45.89 Exam Type: TRANSTHORACIC ECHO (TTE) Procedure CPT: 89384 Addtional CPT: Ht (in): 67 BSA: 3.14 HR: 130 Rhythm: Atrial fibrillation Wt (lb): 423 BP: 111 / 68 Technical Quality: History: MEASUREMENTS Normal ranges based on 95% confidence intervals for adults, some normal patients may fall outside of this range especially when indexing for BSA 2D ECHO LV Diastolic Diameter PLAX 5.3 cm 4.2-5.8 (M) /3.8-5.2 (F) LV Systolic Diameter PLAX 4.1 cm [...] Ventricle Normal left ventricular size. Mild to moderateconcentric left ventricular hypertrophy. Grossly, LVEF appears to be around 40-50%. Poor endocardialvisualization. Flattened septum in systole and diastole consistent with right ventricle pressure andvolume overload. Cannot grade LV diastology due to atrial fibrillation. Right Ventricle Right ventricle not well visualized. Grossly appears dilated Right Atrium Right atrium not well visualized. Left A trium Left atrium not well visualized. Grossly appears [...] Mass by linear method Index 101 g/m2 [facility] HospitalHem[facility] [id number] 08:01:00 Test Item Value Reference Range Interpretation Comments Hemoglobin A1c (test code = 4548-4) 5.9 % 4.3-6.1 Estimated Average Glucose (test 123 mg/dL 70-110 H code = 85741152) Lab Interpretation (test code = Abnormal 41409-1) Param HannonLipid [id number] 06:23:00 Test Item Value Reference Range Interpretation Comments Cholesterol (test 69.0 mg/dL See_Comment [Automate d message] code = 2093-3) The system Direct Hit generated this result transmit sandy reference range : <=200.0. The reference range was not used to interpret this result as normal/abnormal . Triglyceride (test 70 mg/dL <150 code = 96666007) HDL (test code = 18.0 mg/dL See Reference 2085-9) Range Narrative. LDL (test code = 37 mg/dL <100 Optimal: < 100.0 89518-2) mg/dLNear Optim al: 120-129 mg/dLBorderline : 130-159 mg/dLHi gh: 160-189 mg/dLVe ry High: >=190 mg/ dL Patient Fasting? Yes (test code = 08424510) Param [facility] HospitalCoronavirus, CoVID-19, [id number] 23:30:00 Test Item Value Reference Range Interpretation Comments COVID-19 Not Detected Not Detected INTERPRETATION: (SARS-COV-2) (test No detect able code = 11811-6) levels of SARS-CoV-2 Coronavirus (COVID-19) were present [...] MARIO (test code = COMMENT: This MARIO) DNA Guide Aptima SARS-CoV-2 molecular diagnostic assay utilizes Smoke Tester Mediated Amplification (TMA) technology to rapidly detect the SARS-CoV-2 (COVID-19) virus from respiratory samples. In accordance with the FDA's guidance document "Policy for Diagnostic Tests for Coronavirus Disease-2019 during the Public Health Emergency", this test was developed, and its performance characteristics were verified by the [facility] molecular diagnostics laboratory and is authorized for clinical diagnostic use. This laboratory is certified under the Clinical Laboratory Improvement Amendments (CLIA) as qualified to perform high complexity clinical laboratory testing. Lab Interpretation Normal (test code = 19567-3) [facility] HealthcareCoronavirus, CoVID-19, [id number] 23:30:00 Test Item Value Reference Range Interpretation Comments COVID-19 Not Detected Not Detected INTERPRETATION: (SARS-COV-2) (test No detect able code = 98713-9) levels of SARS-CoV-2 Coronavirus (COVID-19) were present [...] MARIO (test code = COMMENT: This MARIO) DNA Guide Aptima SARS-CoV-2 molecular diagnostic assay utilizes Smoke Tester Mediated Amplification (TMA) technology to rapidly detect the SARS-CoV-2 (COVID-19) virus from respiratory samples. In accordance with the FDA's guidance document "Policy for Diagnostic Tests for Coronavirus Disease-2019 during the Public Health Emergency", this test was developed, and its performance characteristics were verified by the [facility] molecular diagnostics laboratory and is authorized for clinical diagnostic use. This laboratory is certified under the Clinical Laboratory Improvement Amendments (CLIA) as qualified to perform high complexity clinical laboratory testing. Lab Interpretation Normal (test code = 74798-9) [facility] [id number] 17:27:00 Test Item Value Reference Range Interpretation Comments Free T4 (test code = 08554380) 1.04 ng/dl 0.64-1.42 Lab Interpretation (test code = Normal 76971-9) [facility] HealthcareUyltxmMGG2470-72-45 17:25:00 Test Item Value Reference Range Interpretation Comments TSH (test code = 5.13 See_Comment If , please 86214248) see the followi ng reference range s [...] . Lab Interpretation (test Normal code = 79745-3) Virgen ViajalaBeta-hCG, Rvaekismdtnc0740-71-98 17:14:00 Test Item Value Reference Range Interpretation Comments hCG, Quantitative (test <1.0 See_Comment [Au tomated message] code = 79570598) The system which generated this result transmitted ref erence range: <5.0 mIU /mL. The reference r will was not used to interpret this result as normal/abnor mal. Lab Interpretation (test Normal code = 48750-8) Clute ViajalaB-Type Natriuretic Peptide (BNP)2021-05-20 17:12:00 Test Item Value Reference Range Interpretation Comments B Natriuretic Peptide 173 pg/mL See_Comment H [Auto mated message] (BNP) (test code = The syste m which 99658811) generated this result transmit sandy reference range : <=100. The refe rence range was not u sed to interpret th is result as normal/abnormal . Lab Interpretation (test Abnormal code = 92750-1) Virgen ViajalaTroponin [id number] 17:11:00 Test Item Value Reference Interpretation Comments Range Troponin I (test <0.03 See_Comment [Automated code = 89535889) message] Th e system which generated this [...] patient, acute events such as myocardial infarction (SC) may be distinguished from other conditions causing [...] values. Lab Interpretation Normal (test code = 35105-8) [facility] HealthcareXRAY CHEST 1 [id number] 16:25:32IMPRESSION: Evidence of pulmonary vascular congestion. Mild [...] By: Francis Thompson MD, 05/20/2021 4:25 PM [facility]12 LEAD [id number] 15:54:3812 LEAD EKG FOR [facility] Test Date: [id number] Name: GRAZYNA JACOB Department: 5520Patient ID: [id number] Room: [facility] 09Gender: F Shrub Planter: [id number]: 1975 Requested By: NATHALIE Carrillo Number: [id number] Reading MD: nathan albert MeasurementsIntervals Marshall Rate: 116 P: ID: 0 QRS: 26QRSD: 106 T: -6QT: 325 QTc: 394 Interpretive StatementsATRIAL FLUTTER/TACHYCARDIA WITH RAPID VENTRICULAR RESPONSELOW QRS VOLTAGE IN PRECORDIAL LEADS [QRS DEFLECTION < 1.0 mV IN CHEST LEADS]ABNORMAL RHYTHM ECGElectronically Signed On 05-20-2021 20:27:02 CDT by Cream Style12 LEAD [id number] 15:54:3812 LEAD EKG FOR [facility] Test Date: [id number] Name: GRAZYNA JACOB Department: 5520Patient ID: [id number] Room: [facility] 09Gender: F Shrub Planter: [id number]: 1975 Requested By: NATHALIE Carrillo Number: [id number] Reading MD: nathan albert MeasurementsIntervals Marshall Rate: 116 P: ID: 0 QRS: 26QRSD: 106 T: -6QT: 325 QTc: 394 Interpretive StatementsATRIAL FLUTTER/TACHYCARDIAWITH RAPID VENTRICULAR RESPONSELOW QRS VOLTAGE IN PRECORDIAL LEADS [QRS DEFLECTION < 1.0 mV IN CHEST LEADS]ABNORMAL RHYTHM ECGElectronically Signed On 05-20-2021 20:27:02 CDT by Cream Style POCT TROPONIN I POC docked [id number] 15:42:00 Test Item Value Reference Range Interpretation Comments Troponin POC (test 0.01 ng/mL 0-0.08 Physician code = 16303537) Notified MARIO (test code = MARIO) <0.08 ng/mL Normal>=0.08 ng/mL Positive for Myocardial injuryNote: The >=0.08 ng/mL cTnI is at the 99th percentile of the non-AMI population. Lab Interpretation Normal (test code = 98567-3) [facility] TROPONIN I POC docked [id number] 15:42:00 Test Item Value Reference Range Interpretation Comments Troponin POC (test 0.01 ng/mL 0.00-0.08 Physician code = 39882435) Notified MARIO (test code = MARIO) <0.08 ng/mL Normal>=0.08 ng/mL Positive for Myocardial injuryNote: The >=0.08 ng/mL cTnI is at the 99th percentile of the non-AMI population. Lab Interpretation Normal (test code = 74776-1) [facility] BMP POC docked [id number] 15:36:00 Test Item Value Reference Range Interpretation Comments Sodium POC (test code = 142 mmol/L 136-145 59985564) Potassium POC (test code 3.9 mmol/L 3.5-5.1 = 58294835) Chloride POC (test code 97 mmol/L 98-107 L = 26173564) TCO2 POC (test code = 34 mmol/L 21-32 H Physic preeti Notified 28604151) Urea Nitrogen POC (test 9 mg/dL 7-18 code = 59437637) Glucose POC (test code = 157 mg/dL 74-106 H 95057187) Hemoglobin POC (test 14.3 g/dL 12-16 code = 81501168) Hematocrit POC (test 42.0 % 37-47 code = 18721003) Lab Interpretation (test Abnormal code = 53681-0) [facility] BMP POC docked [id number] 15:36:00 Test Item Value Reference Range Interpretation Comments Sodium POC (test code = 142 mmol/L 136-145 66896898) Potassium POC (test code 3.9 mmol/L 3.5-5.1 = 76830376) Chloride POC (test code 97 mmol/L 98-107 L = 93983233) TCO2 POC (test code = 34 mmol/L 21-32 H Physic preeti Notified 30771527) Urea Nitrogen POC (test 9 mg/dL 7-18 code = 31934711) Glucose POC (test code = 157 mg/dL 74-106 H 37214908) Hemoglobin POC (test 14.3 g/dL 12-16 code = 63836719) Hematocrit POC (test 42.0 % 37.0-47.0 code = 50758014) Lab Interpretation (test Abnormal code = 60842-1) [facility] CREATININE POC docked [id number] 15:35:00 Test Item Value Reference Range Interpretation Comments Creatinine POC (test 0.6 mg/dL 0.6-1.3 Physici an Notified code = 58853150) eGFR If non- Am >90 See_Comment [Aut omated message] (test code = 66188921) The s ystem which generated this result transmit sandy reference range : >=90 mL/min/1.7 3 m2. The reference r will was not used to interpret this result as normal/abnormal . eGFR If Am (test >90 See_Comment [A utomated message] code = 86895540) The system which generated this result transmit sandy reference range : >=90 mL/min/1.7 3 m2. The reference r will was not used to interpret this result as normal/abnormal . Lab Interpretation (test Normal code = 93780-1) [facility] VBG POC docked [id number] 15:35:00 Test Item Value Reference Range Interpretation Comments pH, Ace POC (test code 7.40 7.33-7.43 = 81646710) pCO2,Ace POC (test code 53.3 See_Comment H [Au tomated = 43683575) message] The sy stem which generated this result transmitted reference range : 38 - 50 mmHg. The reference range was not used to interpret this result as normal/abnormal . PO2, Venous POC (BKR) 49 See_Comment L [Auto mated (test code = 08132171) messa ge] The system which generated this result transmitted reference range : 50 - 75 mm Hg. The reference range was not used to interpret this result as normal/abnormal . Ionized Calcium POC 1.15 mmol/L 1.15-1.29 (test code = 37558224) HCO3, Ace POC (test 33 mmol/L 22-26 H code = 20966676) TCO2 POC (test code = 34 mmol/L 21-32 H 99633066) Base Excess Ace POC 6 mmol/L (test code = 56936855) Sample Type (test code IVEN Physi hermes Notified = 00381692) % Sat, Ace POC (test 83 % code = 97421137) Lab Interpretation Abnormal (test code = 02993-0) [facility] CREATININE POC docked [id number] 15:35:00 Test Item Value Reference Range Interpretation Comments Creatinine POC (test 0.6 mg/dL 0.6-1.3 Physici an Notified code = 23456909) eGFR If non- Am >90 See_Comment [Aut omated message] (test code = 68488512) The s ystem which generated this result transmit sandy reference range : >=90 mL/min/1.7 3 m2. The reference r will was not used to interpret this result as normal/abnormal . eGFR If Am (test >90 See_Comment [A utomated message] code = 86879853) The system which generated this result transmit sandy reference range : >=90 mL/min/1.7 3 m2. The reference r will was not used to interpret this result as normal/abnormal . Lab Interpretation (test Normal code = 66634-7) [facility] VBG POC docked [id number] 15:35:00 Test Item Value Reference Range Interpretation Comments pH, Ace POC (test code 7.40 7.33-7.43 = 27178343) pCO2,Ace POC (test code 53.3 See_Comment H [Au tomated = 79350476) message] The sy stem which generated this result transmitted reference range : 38 - 50 mmHg. The reference range was not used to interpret this result as normal/abnormal . PO2, Venous POC (BKR) 49 See_Comment L [Auto mated (test code = 90205196) messa ge] The system which generated this result transmitted reference range : 50 - 75 mm Hg. The reference range was not used to interpret this result as normal/abnormal . Ionized Calcium POC 1.15 mmol/L 1.15-1.29 (test code = 01740120) HCO3, Ace POC (test 33 mmol/L 22-26 H code = 73267476) TCO2 POC (test code = 34 mmol/L 21-32 H 90588872) Base Excess Ace POC 6 mmol/L (test code = 12992827) Sample Type (test code IVEN Physi hermes Notified = 50643325) % Sat, Ace POC (test 83 % code = 60790017) Lab Interpretation Abnormal (test code = 74082-6) [facility]12 LEAD [id number] 15:23:0612 LEAD EKG FOR [facility] Test Date: [id number] Name: GRAZYNA JACOB Department: 5520Patient ID: [id number] Room: Gender: F Shrub Planter: [id number]: 1975 Requested By: JESUS Carrillo Number: [id number] Reading MD: nathan albert MeasurementsIntervals Marshall Rate: 191 P: ID: 0QRS: 30QRSD: 97 T: 0QT: 196 QTc: 294 Interpretive StatementsATRIAL FIBRILLATION WITH RAPID VENTRICULAR RESPONSELOW QRS VOLTAGE IN PRECORDIAL LEADS [QRS DEFLECTION < 1.0 mV IN CHEST LEADS]MODERATE STDEPRESSION [0.05+ mV ST DEPRESSION]CRITICAL TEST RESULTElectronically Signed On 05-20-2021 15:43:36 CDT by [facility] LE[facility] [id number] 15:23:[address] [facility] Test Date: [id number] Name: GRAZYNA JACOB Department: 5520Patient ID: [id number] Room: Gender: F Shrub Planter: [id number]: 1975 Requested By: NATHALIE Carrillo Number: [id number] Reading MD: nathan albert MeasurementsIntervals Marshall Rate: 191 P: ID: 0 QRS: 30QRSD: 97 T: 0QT: 196 QTc: 294 Interpretive StatementsATRIAL FIBRILLATION WITH RAPID VENTRICULAR RESPONSELOW QRS VOLTAGE IN PRECORDIAL LEADS [QRS DEFLECTION < 1.0 mV IN CHEST LEADS]MODERATEST DEPRESSION [0.05+ mV ST DEPRESSION]CRITICAL TEST RESULTElectronically Signed On 05-20-2021 15:43:36 CD[facility] docked [id number] 13:06:00 Test Item Value Reference Range Interpretation Comments Glucose POC (test code = 55908928) 105 mg/dL 74-106 Lab Interpretation (test code = Normal 93294-2) [facility] GLUCOSE POC docked [id number] 13:06:00 Test Item Value Reference Range Interpretation Comments Glucose POC (test code = 43206255) 105 mg/dL 74-106 Lab Interpretation (test code = Normal 14315-0) [facility] HealthcareTkkpbzXecfloutcr7513-55-09 05:55:00 Test Item Value Reference Range Interpretation Comments Phosphorus (test code = 2777-1) 3.3 mg/dL 2.5-5 Lab Interpretation (test code = Normal 40609-6) [facility] HealthcareDifferential, [id number] 10:07:00 Test Item Value Reference Range Interpretation Comments Neutrophil (test code = 59277783) 80.0 % 34-70 H Lymphs (test code = 37905316) 14.0 % 20-50 L Monocytes (test code = 76459066) 6.0 % 5-12 Eos (test code = 39639714) 0.0 % 0.7-5 L Basos (test code = 63441487) 0.0 % 0.1-1.2 L Neutrophils (Absolute) (test code = 7.03 K/uL 1.56-6.13 H 31866891) Lymphs (Absolute) (test code = 1.23 K/uL 1.18-3.74 23116580) Monocytes(Absolute) (test code = 0.53 K/uL 0.24-0.36 H 88286557) Eos (Absolute) (test code = 0.00 K/uL 0.04-0.36 L 38903779) Baso (Absolute) (test code = 0.00 K/uL 0.01-0.08 L 91107395) Large Platelets (test code = 2+ None seen A 19380907) Platelet Clumps (test code = Present None seen A 08674336) Hypochromia (test code = 92606460) 3+ None seen A Ovalocyte (test code = 97957882) 2+ None seen A Stomatocyte (test code = 89087929) 2+ None seen A Cells Counted (test code = 07323875) Lab Interpretation (test code = Abnormal 25921-1) [facility] Metabolic [id number] 06:36:00 Test Item Value Reference Range Interpretation Comments Sodium (test code = 141 mmol/L 509-233 3272-2) Potassium (test code = 3.8 mmol/L 3.5-5.1 2823-3) Chloride (test code = 98 mmol/L 98-107 2075-0) CO2 (test code = 38 mmol/L 21-31 H 34976053) Glucose (test code = 113 mg/dL 70-110 H 35008164) Calcium (test code = 8.2 mg/dL 8.6-10.3 L 92754203) Urea Nitrogen (test 9.0 mg/dL 7-25 code = 35774051) Creatinine (test code = 0.6 mg/dL 0.6-1.2 38262091) Alkaline Phosphatase 38 U/L 34-104 (test code = 72418195) ALT (test code = 11 U/L 7-52 59342650) AST (test code = 12 U/L 13-39 L 69500788) Total Protein (test 6.8 g/dL 6-8.3 code = 2885-2) eGFR If non- Am >90 See_Comment [Aut omated message] (test code = 29977281) The s ystem which generated this result transmit sandy reference range : >=90 mL/min/1.7 3 m2. The reference r will was not used to interpret this result as normal/abnormal . Albumin (test code = 3.1 g/dL 3.7-5.3 L 06309-3) Anion Gap (test code = 5 mmol/L 5-16 05155277) Lab Interpretation Abnormal (test code = 58048-8) [facility]AB[facility], [id number] 04:33:00 Test Item Value Reference Range Interpretation Comments Temperature (test code 37.0 degree C = 15122788) pH, Venous (test code = 7.36 7.33-7.43 52965509) pCO2, Venous (test code 71.3 See_Comment HH [Au tomated = 75707383) message] The sy stem which generated this result transmitted reference range : 38 - 50 mm Hg. The reference range was not used to interpret this result as normal/abnormal . pO2, Venous (test code 54.8 See_Comment [Aut omated = 44923578) message] The sy stem which generated this result transmitted reference range : 50 - 75 mm Hg. The reference range was not used to interpret this result as normal/abnormal . Base Excess, Venous 13.2 mmol/L -2.5-2.5 H (test code = 99101485) HCO3, Venous (test code 39.2 mmol/L 22-26 H = 72812390) % Sat, Venous (test 86.6 % 60-85 H code = 86237325) Lab Interpretation Abnormal (test code = 91051-3) [facility]Hgb/Rxq6060-55-39 22:29:00 Test Item Value Reference Range Interpretation Comments Hemoglobin (test code = 718-7) 7.5 g/dL 12-16 L Hematocrit (test code = 4544-3) 32.0 % 37-47 L Lab Interpretation (test code = Abnormal 78874-6) [facility] RBC Units, 1 [id number] 12:35:00 Test Item Value Reference Range Interpretation Comments RBC UNITS (test code = compatible 35105132) Unit ABO Type (test code = O 03194054) Unit Rh Type (test code = POS 32767989) Product Code (test code = E0336 02442063) Unit Number (test code = [id number] 94075380) Unit Status (test code = transfused 92467904) ISBT Product Code (test code = T9245V28 52775) Blood Type (test code = 98205) 5100 Blood Expiration Date (test code = 35270) [facility] RBC Units, 1 Jjexg6364-24-14 12:35:00 Test Item Value Reference Range Interpretation Comments RBC UNITS (test code = compatible 93767386) Unit ABO Type (test code = O 45101773) Unit Rh Type (test code = POS 47345332) Product Code (test code = E0336 59130326) Unit Number (test code = [id number] 95015315) Unit Status (test code = transfused 45927326) ISBT Product Code (test code = Z5103B52 18958) Blood Type (test code = 80355) 5100 Blood Expiration Date (test code = 89581) [facility] HealthcareVitamin [id number] 08:32:00 Test Item Value Reference Range Interpretation Comments Vitamin B12 (test code 351 pg/mL See comment Lucila l: 180-914 = 43804238) pg/mLIntermitte nt: 145-180 pg/mLDeficient: <=145.0 pg/mL [facility] HealthcareLegionella Antigen, [id number] 08:20:00 Test Item Value Reference Range Interpretation Comments Legionella Ag, Ur (test code = Negative Negative 52257-0) Lab Interpretation (test code = Normal 81689-3) [facility] HealthcareStrep Pneumo Ag, [id number] 01:40:00 Test Item Value Reference Range Interpretation Comments S. pneumo Ur Antigen (test code = Negative Negative 98472-8) Lab Interpretation (test code = Normal 75389-5) [facility] ([facility]E)2021-02-13 13:02:00TRANSTHORACIC ECHO (TTE) Transthoracic Echo Report GRAZYNA JACOB Age: 45 Gender: F : 1975 Exam Date: 02/13/2021 08:08 Exam Location: [facility] Echo Ordering Phys: MARBELLA ALLAN Referring Phys: [id number] Reading Phys: Mee Vincent MD Fellow Phys: Fellow Phys: Nephrology Nurse: Isma Nunez Reason For Exam: Indications: Obstructive sleep apnea, rule out pulmonary hypertension, Other secondary pulmonary hypertension, Morbid (severe) obesity due to excess calories ICD-9 Codes: I27.2 E66.01 Exam Type: TRANSTHORACIC ECHO (TTE) Procedure CPT: 94695 Addtional CPT: Ht (in): 67 BSA: 3.38 [...] Unable to adequately comment further. Mee Vincent MD(Electronically Signed) Final Date: 13 February 2021 13:01 2D ECHO LV Diastolic Diameter PLAX 5.9 cm 4.2- 5.8 (M) / 3.8-5.2 (F) LV Systolic Diameter PLAX 3.7 cm 2.5-4.0 (M) / 2.2-3.5 (F) LV Fractional Shortening PLAX 37.4 % IVS Diastolic Thickness 1.2 cm 0.6-1.0 (M) / 0.6-0.9 (F) LVPW Diastolic Thickness 1.4 cm 0.6-1.0 (M) / 0.6-0.9 (F) LV Relative Wall Thickness 0.45 <= 0.42 Aortic Root Diameter 3.5cm LV Mass by linear method 345 g LV Mass by linear method Index 102 g/m2 [facility] TRANSTHORACIC ECHO (TTE)2021-02-13 13:02:00TRANSTHORACIC ECHO (TTE) Transthoracic Echo Report GRAZYNA JACOB Age: 45 Gender: F : 1975 Exam Date: 02/13/2021 08:08 Exam Location: [facility] Echo Ordering Phys: MARBELLA ALLAN Referring Phys: [id number] Reading Phys: Mee Vincent MD Fellow Phys: Fellow Phys: Nephrology Nurse: Isma Nunez Reason For Exam: Indications: Obstructive sleep apnea, rule out pulmonary hypertension, Other secondary pulmonary hypertension, Morbid (severe) obesity due to excess calories ICD-9 Codes: I27.2 E66.01 Exam Type: TRANSTHORACIC ECHO (TTE) Procedure CPT: 88870 Addtional CPT: Ht (in): 67 BSA: 3.38 [...] Mass by linear method Index 102 g/m2 [facility] T&S [id number] 06:58:00 Test Item Value Reference Range Interpretation Comments Specimen Expiration (test 02/16/2021 23:59 code = 55123736) ABO/RH (test code = O POS 21352055) Antibody Screen (test code = NEG 69288604) [facility] [id number] 06:57:00 Test Item Value Reference Range Interpretation Comments ABO/RH (test code = 66326684) O POS [facility] [id number] 03:07:00 Test Item Value Reference Range Interpretation [...] MARIO (test code = MARIO) Performed at: [facility] [id number] Director: Denis Lugo MD, Phone: [phone] Lab Interpretation Abnormal (test code = 93972-2) [facility] H[id number] 05:33:00 Test Item Value Reference Range Interpretation Comments Ferritin (test code = 30313962) <10.0 11-306.8 L Lab Interpretation (test code = Abnormal 27256-9) [facility]atitis C Virus Ab [id number] 05:27:00 Test Item Value Reference Range Interpretation Comments Hepatitis C Virus (HCV) Antibody Negative Negative (test code = 67811-0) Lab Interpretation (test code = Normal 12630-6) [facility]-1/HIV-2 Routine [id number] 05:26:00 Test Item Value Reference Range Interpretation Comments HIV Ag/Ab Combo (test code = Negative Negative 13512-3) Lab Interpretation (test code = Normal 34202-8) [facility] Healthcare[facility]/S ABDOMEN [id number] 19:55:26IMPRESSION:Limited evaluation due to bowel gas and [...] By: Francis Thompson MD, 02/11/2021 7:55 PMKind[facility] HealthcareNgwfbjMcrmat6522-70-29 18:55:00 Test Item Value Reference Range Interpretation Comments Lipase (test code = 10792116) 24 U/L 11-82 Lab Interpretation (test code = Normal 49333-6) [facility] HealthcareLiver [id number] 18:55:00 Test Item Value Reference Range Interpretation Comments Bilirubin, Total (test code = 1.5 mg/dL 0.2-1.2 H 2885-2) Alkaline Phosphatase (test code = 44 U/L 34-104 22943928) AST (test code = 15031579) 13 U/L 13-39 Direct Bilirubin (test code = 0.6 mg/dL 0-0.2 H 1968-7) ALT (test code = 11826774) 9 U/L 7-52 Albumin (test code = 77755-6) 3.3 g/dL 3.7-5.3 L Lab Interpretation (test code = Abnormal 96975-1) [facility] HealthcareXRAY CHEST 2 [id number] 18:34:30IMPRESSION: Limited exam. Opacified left lung base [...] report.Signed By: Francis Thompson MD, 02/11/2021 6:34 [place] [address] LEAD [id number] 17:19:2512 LEAD EKG FOR [facility] Test Date: 2087-71-45Qoc Name: GRAZYNA JACOB Department: 5520Patient ID: [id number] Room: Gender: F Shrub Planter: [id number]: 1975 Requested By: LILA Lira Number: [id number] Reading MD: Mee Vincent MeasurementsIntervals Marshall Rate: 78 P: -15PR: 107 QRS: 38QRSD: 109 T: 68QT: 364 QTc: 417 Interpretive StatementsSINUS RHYTHM WITH SHORT ID INTERVALLOW QRS VOLTAGE IN PRECORDIAL LEADS [QRS DEFLECTION < 1.0 mV IN CHEST LEADS]NONSPECIFIC T-WAVE ABNORMALITYElectronically Signed On 02-11-2021 19:11:55 CDT by [email or web address] LEAD [id number] 17:19:2512 LEAD EKG FOR [facility] Test Date: 1479-24-21Xel Name: GRAZYNA JACOB Department: 5520Patient ID: [id number] Room: Gender: F Shrub Planter: [id number]: 1975 Requested By: LILA Lira Number: [id number] Reading MD: Mee Vincent MeasurementsIntervals Marshall Rate: 78 P: -15PR: 107 QRS: 38QRSD: 109 T: 68QT: 364 QTc: 417 Interpretive StatementsSINUS RHYTHM WITH SHORT ID INTERVALLOW QRS VOLTAGE IN PRECORDIAL LEADS [QRS DEFLECTION < 1.0 mV IN CHEST LEADS]NONSPECIFICT-WAVE ABNORMALITYElectronically Signed On 02-11-2021 19:11:55 CDT by RoutehappyUC, Urine [id number] 13:48:00 Test Item Value Reference Range Interpretation Comments UC, Urine Culture <10,000 cfu/mL. Lactose (test code = UC) fermenting Gram negative ruben Lindon Count (test >100,000 code = Lindon Count) UC, Urine Culture Proteus mirabilis (test code = UC1.2) [place] Count (test >100,000 code = [place]on Count) Gram Neg Ur ID and [id number] 13:48:00 Test Item Value Reference Range Interpretation [...] <=16 S TZP) Complete Blood Count Auto [id number] 12:15:00 Test Item Value Reference Range Interpretation [...] code = NRBCP) 1.2 % Comprehensive Metabolic [id number] 12:15:00 Test Item Value Reference Range Interpretation [...] code 56 U/L 46-116 N = ALP) [id number] 12:15:00 Test Item Value Reference Range Interpretation Comments Lipase (test code = LIP) 32 U/L 12-53 N HCG, Serum Qual (LAB)2021-02-11 12:15:00 Test Item Value Reference Range Interpretation Comments HCG, Serum Qual (LAB) (test code = Negative Negative HCGQ) UA, Urinalysis Rflx Cult/[id number] 12:09:00 Test Item Value Reference Range Interpretation Comments Color,Urine (test code = Amalia Yellow A UCOL) Clarity,Urine (test code = Slightly Cloudy Clear A UCLAR) PH,Urine (test code = UPH.XX) 5.5 5.5-8.5 Specific [place],Urine (test 1.020 1.005-1.030 N code = USG) [...] cells/uL Negative A (test code = ULEU) Ictotest,[id number] 12:09:00 Test Item Value Reference Range Interpretation Comments Ictotest,Urine (test code = Confirm Negative Confirm Neg UICTO) Urine [id number] 12:09:00 Test Item Value Reference Range Interpretation [...]
[2023-09-05] MEDS ORDERED: FUROSEMIDE 100 MG/10 ML VIAL IV ONE (04:38)
[2023-09-05 05:27] LABS: Absolute Lymphocytes (CBC) 0.8 K/uL (0.7-4.9); Lymphocytes % 12.4 % (15.3-44.8); MCV 78.3 fL (80-100); Platelets 204 thou/uL (152-406); RBC Red Blood Cell Count 4.47 M/uL (3.86-4.86)
[2023-09-05 05:37] LABS: Potassium 3.8 mEq/L (3.5-5.1)
--- NOTE | 2023-09-05 06:19 | ER ---
Nurse's Notes [facility] Name: Charity Jacob Age: 48 yrs Sex: Female : 1975 Arrival Date: 09/05/2023 Time: 03:48 Bed 18 Private MD: Diagnosis: CHF Exacerbation Presentation: 09/05 03:50 Initial Sepsis Screen: Does the patient meet any 2 criteria? RR > 20 per min. No. la4 Patient's initial sepsis screen is negative. Does the patient have a suspected source of infection? No. Patient's initial sepsis screen is negative. Risk Assessment: Do you want to hurt yourself or someone else? Patient reports no desire to harm self or others. Onset of symptoms was September 05, 2023. 03:50 Acuity: MAIKEL 3 la4 04:00 Chief complaint: Patient states: c/o SOB starting today. Reports hx of CHF but reports la4 not taking her lasix since this Thursday due to a rash between her legs which makes it hard to sit to urinate. Denies chest pain. Pt on Home O2 3LNC at all times EMS states: SOB. 04:04 Chief complaint: Patient states: Shortness of Breath. Coronavirus screen: Vaccine la4 status: Patient reports receiving the 1st dose of the Covid vaccine. Client denies travel out of the [place] in the last 14 days. Ebola Screen: Patient denies travel to an Ebola-affected area in the 21 days before illness onset. No symptoms or risks identified at this time. 04:04 Method Of Arrival: EMS: [facility] la4 Triage Assessment: 04:00 General: Appears uncomfortable, obese, unkempt, Behavior is cooperative, appropriate la4 for age. Pain: Complains of pain in back Pain does not radiate. Pain currently is 3 out of 10 on a pain scale. Quality of pain is described as aching. Neuro: No deficits noted. Respiratory: Airway is patent Trachea midline Respiratory effort is unlabored, Respiratory pattern is regular, symmetrical, Breath sounds are clear bilaterally. Breath sounds are diminished bilaterally. in left posterior lower lobe, right posterior middle lobe and right posterior lower lobe. GI: No deficits noted. Bowel sounds present X 4 quads. 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 - Social history:: Smoking status: Patient denies any tobacco usage or history of. - Code Status:: Full code. - Coronavirus screen:: The patient has NOT traveled to [place] in the past 14 days. Proceed with normal triage process as indicated. - Ebola Screening: : Patient denies travel to an Ebola-affected area in the 21 days before illness onset No symptoms or risks identified at this time. Screenin:18 [facility] ED Fall Risk Assessment (Adult) Impaired Gait Yes (1 pt) Mobility Assist la4 Device Used Yes (1 pt) Altered Elimination Yes (1 pt) Score/Fall Risk Level 3 or more points = High Risk. Abuse screen: Denies threats or abuse. Denies injuries from another. Nutritional screening: No deficits noted. Tuberculosis screening: No symptoms or risk factors identified. Assessment: 05:15 Reassessment: No changes from previously documented assessment. Patient and/or family la4 updated on plan of care and expected duration. Pain level reassessed. Patient is alert, oriented x 3, equal unlabored respirations, skin warm/dry/pink. Patient denies pain at this time. Patient states symptoms have improved. General: Appears uncomfortable, Behavior is cooperative, appropriate for age, Denies fever. Neuro: No deficits noted. Respiratory: Airway is patent Respiratory effort is unlabored, short of breath with exertion. 05:17 General: Lab called and blood specimens hemolised. Notified by lab and labs la4 recollected. . 06:43 : No deficits noted. Genitalia appear normal No rash noted to inner thighs at time of la4 cleaning pt and placing pure wick. Nystatin powder and cream noted to inner thighs. Reports rash between legs and using nystatin powder as prescribed by her PCP. Vital Signs: 03:50 BP 156 / 75; Pulse 71; Resp 24; Temp 98(O); Pulse Ox 98% on 3 lpm NC; Weight 201.85 kg; la4 Height 5 ft. 6 in. ; Pain 01/23; 03:50 BP 156 / 75; Pulse 71; Resp 24; Temp 98; Pulse Ox 99% on 3 lpm NC; Weight 201.85 kg; la4 Height 5 ft. 6 in. ; Pain 3/10; 04:00 BP 142 / 68; Pulse 67; Resp 24; Pulse Ox 98% on 3 lpm NC; Weight 201.85 kg; Height 5 la4 ft. 6 in. ; 04:30 BP 134 / 63; Pulse 66; Resp 22; Pulse Ox 100% on 3 lpm NC; la4 05:00 BP 136 / 75; Pulse 65; Resp 20; Pulse Ox 100% on 3 lpm NC; la4 05:30 BP 142 / 65; Pulse 65; Resp 20; Pulse Ox 100% on 3 lpm NC; la4 06:00 BP 149 / 52; Pulse 65; Resp 20; Temp 98.2; Pulse Ox 100% on 3 lpm NC; Pain 0/10; la4 04:00 Body Mass Index 71.82 (201.85 kg, 167.64 cm) la4 03:50 Pain Scale: Adult la4 03:50 Pain Scale: Adult la4 06:00 Pain Scale: Adult la4 03:50 reports pain as aching all over la4 Vitals: 03:50 Cardiac Rhythm Assessment Regular Sinus rhythm. la4 [place] Coma Score: 06:00 Eye Response: spontaneous(4). Motor Response: obeys commands(6). Verbal Response: la4 oriented(5). Total: 15. ED Course: 04:00 Patient arrived in ED. wm 04:00 Patient Pure wick placed for urine output. la4 04:01 Gerardo Wellington MD is Attending Physician. ec2 04:04 Tamara Kelly, RN is Primary Nurse. la4 04:14 Triage completed. la4 04:20 Patient has correct armband on for positive identification. Bed in low position. Call la4 light in reach. Side rails up X2. 04:20 Provided Education on: plan of care. la4 04:21 Basic Metabolic Panel Sent. la4 04:21 CBC with Diff Sent. la4 04:21 NT PRO-BNP Sent. la4 04:51 XRAY Chest (1 view) In Process Unspecified. EDMS 06:20 IV discontinued, bleeding controlled. la4 06:43 No provider procedures requiring assistance completed. la4 Administered Medications: 04:54 Drug: Furosemide IVP 80 mg IVP once; give over 2 minutes Route: IVP; Rate: bolus; la4 Infused Over: 4 mins; Site: right forearm; 05:19 Follow up: Response: No adverse reaction la4 05:27 Follow up: Response: No adverse reaction; Other; 1o urine out put recoreded after lasix la4 Medication: 04:54 VIS not applicable for this client. la4 Intake: 05:[address] la4 Output: 05:27 Urine: 1150ml (Voided); Total: 1150ml. la4 06:00 Urine: 800ml (Voided); Total: 1950ml. la4 06:59 Urine: 1000ml (Voided); Total: 2950ml. la4 05:[address] la4 Outcome: 06:18 Discharge ordered by . ec2 06:39 Discharged to home via ambulance, la4 06:39 Condition: improved 06:39 Discharge instructions given to patient, family, waiting on EMS transport at this time due to pt oxygen dependency and inmobility. Instructed on discharge instructions, follow up and referral plans. medication usage, Demonstrated understanding of instructions, follow-up care, medications, 06:59 Patient left the ED. la4 Signatures: Dispatcher [employer] EDGabriella Berg Edwin, MD MD ec2 Tamara Kelly RN RN la4
--- NOTE | 2023-09-05 06:19 | EDPHYS ---
Physician Documentation [facility] Name: Charity Jacob Age: 48 yrs Sex: Female : 1975 Arrival Date: 09/05/2023 Time: 03:48 Bed 18 Private MD: ED Physician Gerardo Wellington HPI: 09/05 04:06 This 48 yrs old Female presents to ER via Unassigned with complaints of sob. ec2 04:06 Patient arrives today due to concern for shortness of breath. States that she has a ec2 history of CHF, has been having some worsening shortness of breath as she has not been taking her Lasix. Patient is morbidly obese and has issues mobility, states that she has not taken her Lasix as she has a rash on her legs that she is being treated by her primary care doctor, and has some discomfort when she sits down on the toilet. Patient reports an occasional cough. No fevers or chills. Patient reports no chest pain. Patient has baseline on 80 mg of Lasix daily. Patient is on baseline oxygen requirement at 3 L and is unchanged from her baseline.. 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 - Social history:: Smoking status: Patient denies any tobacco usage or history of. - Code Status:: Full code. - Coronavirus screen:: The patient has NOT traveled to [place] in the past 14 days. Proceed with normal triage process as indicated. - Ebola Screening: : Patient denies travel to an Ebola-affected area in the 21 days before illness onset No symptoms or risks identified at this time. ROS: 04:06 Constitutional: sob ec2 Exam: 04:06 Constitutional: GEN: Morbid obesity Head: atraumatic Eyes: EOMI Ears: External ears ec2 are normal. CV: regular rate, difficult to assess lower extremity edema given patient's morbid obesity LUNGS: no respiratory distress, no tachypnea SKIN: no evidence of rashes MSK: no evidence of trauma NEURO: moves all extremities equally Vital Signs: 03:50 BP 156 / 75; Pulse 71; Resp 24; Temp 98(O); Pulse Ox 98% on 3 lpm NC; Weight 201.85 kg; la4 Height 5 ft. 6 in. ; Pain 310; 03:50 BP 156 / 75; Pulse 71; Resp 24; Temp 98; Pulse Ox 99% on 3 lpm NC; Weight 201.85 kg; la4 Height 5 ft. 6 in. ; Pain 310; 04:00 BP 142 / 68; Pulse 67; Resp 24; Pulse Ox 98% on 3 lpm NC; Weight 201.85 kg; Height 5 la4 ft. 6 in. ; 04:30 BP 134 / 63; Pulse 66; Resp 22; Pulse Ox 100% on 3 lpm NC; la4 05:00 BP 136 / 75; Pulse 65; Resp 20; Pulse Ox 100% on 3 lpm NC; la4 05:30 BP 142 / 65; Pulse 65; Resp 20; Pulse Ox 100% on 3 lpm NC; la4 06:00 BP 149 / 52; Pulse 65; Resp 20; Temp 98.2; Pulse Ox 100% on 3 lpm NC; Pain 0/10; la4 04:00 Body Mass Index 71.82 (201.85 kg, 167.64 cm) la4 03:50 Pain Scale: Adult la4 03:50 Pain Scale: Adult la4 06:00 Pain Scale: Adult la4 03:50 reports pain as aching all over la4 [place] Coma Score: 06:00 Eye Response: spontaneous(4). Motor Response: obeys commands(6). Verbal Response: la4 oriented(5). Total: 15. MDM: 03:50 Patient medically screened. ec2 04:06 ED course: Patient arrives today due to concern for worsening shortness of breath. ec2 Examination remarkable for morbidly obese individual was otherwise in no acute distress. Patient without significant respiratory findings on physical examination and is on her baseline oxygen requirement. Will obtain lab work, EKG, chest x-ray and give the patient a her home dose of Lasix through the IV. Currently considering slight volume overload given the patient's medication noncompliance, low suspicion for pneumonia, low suspicion for ACS.. 04:21 ED course: EKG independently reviewed and interpreted by me, shows normal sinus rhythm, ec2 rate of 67, no acute ST segment elevation, PAC noted.. 05:40 ED course: Patient CBC is reassuring, slight anemia noted, BNP minimally elevated at ec2 405, metabolic profile without marked electrolyte disturbance. . 06:17 ED course: Patient with significant urine output after the Lasix administration. On ec2 reassessment patient reports some subjective improvement in her symptoms, patient remained saturating in the upper 90s, 100% and is in no respiratory distress. Chest x-ray was independently reviewed and interpreted by me, shows cardiomegaly, trace left-sided pleural effusion as well as vascular congestion appreciated. Ultimately presentations consistent with volume overload, I will discharge patient home I checked her on the importance of taking her Lasix home medication. Return precautions given. . 06:19 Data reviewed: vital signs. ec2 09/05 04:01 Order name: Basic Metabolic Panel; Complete Time: 05:38 ec2 09/05 04:01 Order name: CBC with Diff; Complete Time: 05:32 ec2 09/05 04:01 Order name: NT PRO-BNP; Complete Time: 05:38 ec2 09/05 04:01 Order name: XRAY Chest (1 view) ec2 09/05 04:01 Order name: EKG; Complete Time: 04:03 ec2 09/05 04:01 Order name: Cardiac monitoring; Complete Time: 04:21 ec2 09/05 04:01 Order name: EKG - Nurse/Tech; Complete Time: 04:21 ec2 09/05 04:01 Order name: IV Saline Lock; Complete Time: 04:21 ec2 09/05 04:01 Order name: Labs collected and sent; Complete Time: 04:21 ec2 09/05 04:01 Order name: O2 Per Protocol; Complete Time: 04:21 ec2 09/05 04:01 Order name: O2 Sat Monitoring; Complete Time: 04:21 ec2 Administered Medications: 04:54 Drug: Furosemide IVP 80 mg IVP once; give over 2 minutes Route: IVP; Rate: bolus; la4 Infused Over: 4 mins; Site: right forearm; 05:19 Follow up: Response: No adverse reaction la4 05:27 Follow up: Response: No adverse reaction; Other; 1o urine out put recoreded after lasix la4 Disposition Summary: 09/05/23 06:18 Discharge Ordered Condition: Stable ec2 Diagnosis - CHF Exacerbation ec2 Discharge Instructions: - Discharge Summary Sheet ec2 - Heart Failure Exacerbation ec2 Forms: - Medication Reconciliation Form ec2 - Thank You Letter ec2 - Antibiotic Education ec2 - Prescription Opioid Use ec2 - Patient Portal Instructions ec2 - Leadership Thank You Letter ec2 Signatures: Dispatcher [employer] Gerardo Varela MD MD ec2 Tamara Kelly RN RN la4 Corrections: (The following items were deleted from the chart) 04:06 04:01 Patient medically screened. ec2 ec2 04:09 04:06 Patient arrives today due to concern for shortness of breath. States that she has ec2 a history of CHF, has been having some worsening shortness of breath as she has not been taking her Lasix. Patient is morbidly obese and has issues mobility, states that she has not taken her Lasix as she has a rash on her legs that she is being treated by her primary care doctor, and has some discomfort when she sits down on the toilet. Patient reports an occasional cough. No fevers or chills. Patient reports no chest pain.. ec2
[2023-09-05 07:22] VITALS: O2SAT 100
[2023-09-05 07:26] VITALS: BP 149/52; TEMP 98.2
[2023-09-05] MEDS ORDERED: ASPIRIN 81 MG CHEWABLE TABLET ONE (08:38)
--- NOTE | 2023-09-05 14:56 | RAD REPORT ---
EXAM DESCRIPTION: RAD - Chest Single View - CLINICAL HISTORY: The patient is 48 years old and is Female; SOB TECHNIQUE: Frontal view of the chest. COMPARISON: No relevant prior studies available. FINDINGS: Lungs: Prominent interstitial markings suggestive of interstitial edema. Pleural space: Left hemidiaphragm is obscured which can be seen with left pleural effusion, as we ll as left lower lobe consolidation or atelectasis. No pneumothorax. Heart: Unremarkable. Mediastinum: Unremarkable. Bones/joints: No acute findings. IMPRESSION: 1. Prominent interstitial markings suggestive of interstitial edema. 2. Left hemidiaphragm is obscured which can be seen with left pleural effusion, as well as left low er lobe consolidation or atelectasis. Electronically signed by: Kory Engle MD 09/05/2023 6:18 AM CDT Due to temporary technical issues with the PACS/Fluency reporting system, reports are being signed by the in house radiologists without review as a courtesy to insure prompt reporting. The interpreting radiologist is fully responsible for the content of the report.
--- NOTE | 2023-09-06 13:51 | EKG ---
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
== END 2023-09-05 06:59 | disposition home or self-care (01) ==
LOC: ER 03:48
DX: I50.9 Heart failure, unspecified (principal); I48.91 Unspecified atrial fibrillation; E66.01 Morbid (severe) obesity due to excess calories; Z68.45 Body mass index [BMI] 70 or greater, adult; Z86.73 Personal history of transient ischemic attack (TIA), and cerebral infarction without residual deficits; Z88.0 Allergy status to penicillin
CPT/HCPCS: 36415; 71045; 80048; 83880; 85025; 93005; 96374; 99284

== ENCOUNTER 2024-11-10 00:41 | Emergency (ER) | payer OTHER ==
[2024-11-10 01:06] LABS: Absolute Basophils 0.1 K/uL (0-0.5); Absolute Eosinophils 0.1 K/uL (0-0.5); Absolute Lymphocytes (CBC) 1.1 K/uL (0.7-4.9); Absolute Monocytes 0.7 K/uL (0.1-1.3); Absolute Neutrophil 5.2 K/uL (1.8-8.0); Basophils % 0.8 % (0-1.3); Eosinophils % 1.2 % (0-4.4); Hematocrit 32.1 % (36.0-45.0); Hemoglobin 9.6 g/dL (12.0-15.0); Lymphocytes % 15.3 % (15.3-44.8); MCH 24.1 pg (27.0-35.0); MCHC 30.1 g/dL (32.0-36.0); MCV 80.3 fL (80-100); MPV 9.1 fL (7.6-11.3); Monocytes % 10.3 % (3.3-12.3); Neutrophils % 72.4 % (41.7-73.7); Nucleated Red Blood Cells % 0.1 % (0-0); Platelets 245 thou/uL (152-406); Red Cell Distribution Width 16.7 % (12.1-15.2)
[2024-11-10 01:18] LABS: PT Prothrombin Time 14.2 SECONDS (9.4-12.5); Protime INR 1.28
[2024-11-10] MEDS ORDERED: ALBUTEROL 2.5 MG/3 ML NEB SOL ONE (01:43)
[2024-11-10] MEDS ORDERED: CEFTRIAXONE 1000 MG/VIAL ONE (01:43)
[2024-11-10 01:44] LABS: ALT/SGPT 15 U/L (13-56); Albumin/Globulin Ratio 0.6 (1.1-1.8); Alkaline Phosphatase 48 U/L (45-117); Anion Gap 4.6 mEq/L (5.0-15.0); BUN Blood Urea Nitrogen 13 mg/dL (7-18); Bicarbonate 40 mEq/L (21-32); Bilirubin Direct 0.2 mg/dL (0-0.2); Bilirubin Indirect, Calculated 0.5 mg/dL (0.2-0.8); Bilirubin Total 0.7 mg/dL (0.2-1.0); Globulin 4.8 g/dL (2.3-3.5); Glomerular Filtration Rate 66 ml/min (=/>90); Glucose Level 111 mg/dL (74-106); Magnesium 2.2 mg/dL (1.6-2.4); NT PRO-BNP 407 pg/mL (<125); Potassium 3.6 mEq/L (3.5-5.1); Protein, Total 7.8 g/dL (6.4-8.2); Sodium Level 139 mEq/L (136-145); Troponin High Sensitivity 29.7 pg/mL (<58.9)
[2024-11-10] MEDS ORDERED: FUROSEMIDE 40 MG/4 ML VIAL ONE (01:44)
[2024-11-10] MEDS ORDERED: METHYLPREDNISOLONE 125 MG INJ ONE (01:44)
[2024-11-10 01:45] LABS: AST/SGOT < 10 U/L (15-37)
[2024-11-10 02:37] LABS: Arterial Blood Carboxyhemoglob 1.4 % (0-1.5); Blood Gas Oxyhemoglobin 37.1 % (94-97)
[2024-11-10 02:38] LABS: Blood Gas THB 9.4 g/dl (12-18)
[2024-11-10 03:28] LABS: Specific Gravity 1.017 (1.005-1.030); Sqamous Epithelial <5 /HPF (None Seen); Urine Bacteria <20 /HPF (<20); Urine Bilirubin NEGATIVE (Negative); Urine Blood 3+ (OVER) (Negative); Urine Clarity Extremely Turbid (Clear); Urine Color Light-Orange (Yellow); Urine Crystals Unidentified Few /HPF (None Seen); Urine Culture Reflex Order NOT NEEDED; Urine Glucose NEGATIVE (Negative); Urine Ketones NEGATIVE (Negative); Urine Micro Reflex YN NO BILL MICROSCOPIC; Urine Mucus Slight /HPF (None Seen); Urine Nitrite NEGATIVE (Negative); Urine Protein 1+ (Negative); Urine RBC >50 /HPF (None Seen); Urine Urobilinogen 1+ (Normal)
--- NOTE | 2024-11-10 05:14 | EDPHYS ---
Physician Documentation [facility] Name: Charity Jacob Age: 49 yrs Sex: Female : 1975 Arrival Date: 11/10/2024 Time: 00:41 Bed 2 Private MD: ED Physician Kashmir Tipton HPI: 11/10 00:45 This 49 yrs old Female presents to ER via Unassigned with complaints of sp4 Shortness Of Breath. 05:06 49-year-old female with past medical history of morbid obesity, congestive heart sp4 failure obstructive sleep apnea, atrial fibrillation, poor mobility secondary to obesity presents with EMS for acute worsening dyspnea in the last 24 hours. [facility] Last admission here 01/14/2024 for hypercarbic respiratory failure. Patient is oxygen dependent [facility]itentiary and uses 4 L. Patient is a resident of [facility].. 05:12 Patient's medications include metoprolol succinate, apixaban 2.5 mg p.o. twice daily, sp4 buspirone, albuterol, amiodarone, aspirin, ipratropium, Dulera, Entresto, Ozempic, spironolactone, acetazolamide. 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 - Infectious Disease History:: Denies. - Social history:: Smoking status: Patient denies any tobacco usage or history of. Patient/guardian denies using alcohol, street drugs, IV drugs. - Family history:: not pertinent. ROS: 05:06 Constitutional: Negative for fever, chills, and weight loss, positive shortness of sp4 breath, 05:06 All other systems are negative, Exam: 05:06 Constitutional: Patient has poorly mobile morbidly obese female, oxygen dependent, sp4 arrives in moderate respiratory distress on BiPAP Head/Face: Normocephalic, atraumatic. Eyes: Pupils equal round and reactive to light, extra-ocular motions intact. Lids and lashes normal. Conjunctiva and sclera are not injected. Cornea within normal limits. Periorbital areas with no swelling, redness, or edema. ENT: Nares patent. No nasal discharge, no septal abnormalities noted. Tympanic membranes are normal and external auditory canals are clear. Oropharynx with no redness, swelling, or masses, exudates, or evidence of obstruction, uvula midline. Mucous membranes moist. Neck: Trachea midline, no thyromegaly or masses palpated, and no cervical lymphadenopathy. Supple, full range of motion without nuchal rigidity, or vertebral point tenderness. Chest/axilla: Normal chest wall appearance and motion. Nontender with no deformity. No lesions are appreciated. Cardiovascular: Regular rate and rhythm with a normal S1 and S2. No gallops, murmurs, or rubs. Normal PMI, no JVD. No pulse deficits. Respiratory: Lungs have equal breath sounds bilaterally, clear to auscultation and percussion. No rales, rhonchi or wheezes noted. No increased work of breathing, no retractions or nasal flaring. Abdomen/GI: Soft, with normal bowel sounds. No distension or tympany. Abdominal obesity makes exam difficult. Back: No spinal tenderness. No costovertebral tenderness. Skin: Warm, dry with normal turgor. Normal color with no rashes, no lesions, and no evidence of cellulitis. MS/ Extremity: Pulses equal, no cyanosis. Neurovascular intact, bilateral chronic lower extremity edema without pitting. Signs of lymphedema. Poor mobility moderate to severe physical deconditioning. Neuro: Awake and alert, GCS 15, oriented to person, place, time, and situation. Cranial nerves II-XII grossly intact. Motor strength 5/5 in all extremities. Sensory grossly intact. 05:06 ECG was reviewed by the Attending Physician. EKG at 0 139 sinus rhythm with PVCs, rate 69 Vital Signs: 00:41 BP 166 / 68; Pulse 64; Resp 21; Temp 97; Pulse Ox 100% on 4 lpm NC; Weight 252.2 kg; jj7 Height 5 ft. 6 in. ; 02:09 BP 139 / 77; Pulse 62; Resp 15; Pulse Ox 100% on BiPAP; jj7 03:00 BP 127 / 66; Pulse 62; Resp 16; Pulse Ox 100% on BiPAP; cp4 04:00 BP 148 / 123; Pulse 60; Resp 15; Pulse Ox 100% on BiPAP; jj7 04:52 BP 107 / 39; Pulse 67; Resp 15; Pulse Ox 100% on BiPAP; cp4 06:00 BP 120 / 62; Pulse 60; Resp 15; Pulse Ox 100% on BiPAP; jj7 06:56 BP 118 / 57; Pulse 60; Resp 15; Pulse Ox 100% on BiPAP; jj7 08:11 BP 137 / 71; Pulse 68; Resp 18; Pulse Ox 100% on BiPAP; FiO2 36 %; ko1 09:25 BP 122 / 64; Pulse 61; Resp 15; Pulse Ox 100% on BiPAP; FiO2 36 %; ko1 10:06 BP 135 / 57; Pulse 59; Resp 18; Pulse Ox 100% on BiPAP; FiO2 36 %; ko1 12:30 BP 120 / 53; Pulse 70; Resp 18; Pulse Ox 93% on BiPAP; FiO2 36 %; ko1 13:15 BP 137 / 50; Pulse 73; Resp 18; Pulse Ox 94% on BiPAP; FiO2 36 %; ko1 14:17 BP 127 / 56; Pulse 71; Resp 19; Pulse Ox 94% on BiPAP; FiO2 36 %; ko1 00:41 Body Mass Index 89.74 (252.20 kg, 167.64 cm) [facility] MDM: 02:36 Medical Screening Exam initiated sp4 04:59 ED course: EXAM: XR Chest, 1 View CLINICAL HISTORY: Chest pain. TECHNIQUE: Frontal view sp4 of the chest. COMPARISON: XR Chest 09/05/2023. FINDINGS: Limitations: Technically limited secondary to underpenetration. Lungs: Mild central pulmonary vascular and interstitial prominence. Retrocardiac opacification. Pleural space: Unremarkable. No pneumothorax. Heart: The cardiac silhouette is moderately enlarged, stable, in part accentuated by portable technique and degree of inspiration. Mediastinum: Unremarkable. Normal mediastinal contour. Bones/joints: Unremarkable. No acute fracture. IMPRESSION: Findings which may be related to mild pulmonary congestion. Superimposed infection not excluded.. 05:14 Differential diagnosis: Anemia Anxiety Reaction asthma, Bronchitis CHF exacerbation, sp4 Chronic Obstructive Pulmonary Disease pneumonia. Antibiotic administration: Rocephin IV given . Data reviewed: vital signs, lab test result(s), cardiac enzymes, CBC, electrolytes, hepatic panel, urinalysis. 11/10 00:46 Order name: Basic Metabolic Panel; Complete Time: 04:58 sp4 11/10 00:46 Order name: CBC with Diff; Complete Time: 04:58 sp4 11/10 00:46 Order name: LFT's; Complete Time: 04:58 sp4 11/10 00:46 Order name: Magnesium; Complete Time: 04:58 sp4 11/10 00:46 Order name: NT PRO-BNP; Complete Time: 04:58 sp4 11/10 00:46 Order name: PT-INR; Complete Time: 04:58 sp4 11/10 00:46 Order name: Troponin HS; Complete Time: 04:58 sp4 11/10 00:46 Order name: ABG; Complete Time: 04:58 4 11/10 00:46 Order name: Blood Culture Adult (2) 4 11/10 00:47 Order name: Urinalysis W/Microscopic; Complete Time: 04:58 4 11/10 00:47 Order name: Lactate w/ 2H reflex if indic.; Complete Time: 04:58 4 11/10 00:47 Order name: CRP; Complete Time: 04:58 4 11/10 06:35 Order name: ABG 4 11/10 00:46 Order name: XRAY Chest (1 view); Complete Time: 06:29 4 11/10 00:47 Order name: BIPAP 4 11/10 00:46 Order name: Cardiac monitoring; Complete Time: 01:39 4 11/10 00:46 Order name: EKG - Nurse/Tech; Complete Time: 01:39 4 11/10 00:46 Order name: IV Saline Lock; Complete Time: 01:39 4 11/10 00:46 Order name: Labs collected and sent; Complete Time: 01:39 4 11/10 00:46 Order name: O2 Per Protocol; Complete Time: 01:40 4 11/10 00:46 Order name: O2 Sat Monitoring; Complete Time: :40 EC:39 Rate is 69 beats/min. Rhythm is regular, Sinus Rhythm with Occasional PVCs, PACs. QRS sp4 [place] is Normal. UT interval is normal. QRS interval is normal. QT interval is normal. No Q waves. T waves are Normal. No ST changes noted. Clinical impression: No evidence of ischemia. Interpreted by me. Reviewed by me. Administered Medications: 02:00 Drug: Rocephin - Rocephin (cefTRIAXone) IVPB 1 grams IVPB once over 30 mins; (mix in 50 jj7 mL NS) Route: IVPB; Infused Over: 30 mins; Site: right antecubital; 02:30 Follow up: IV Status: Completed infusion jj7 02:00 Drug: MethylPrednisoLONE IVP 125 mg IVP once Route: IVP; Site: left antecubital; jj7 02:30 Follow up: Response: Marked relief of symptoms jj7 02:00 Drug: Albuterol Inhalation 2.5 mg Inhalation every 20 minutes x3 Route: Inhalation; jj7 02:05 Drug: Albuterol Inhalation 2.5 mg Inhalation every 20 minutes x3 Route: Inhalation; jj7 02:10 Drug: Albuterol Inhalation 2.5 mg Inhalation every 20 minutes x3 Route: Inhalation; jj7 05:22 Follow up: Response: Marked relief of symptoms jj7 02:20 Drug: Furosemide IVP 40 mg IVP once; give over 2 minutes Route: IVP; Site: right j7 antecubital; 03:00 Follow up: Response: Marked relief of symptoms jj7 03:43 Follow up: Response: Marked relief of symptoms jj7 Disposition Summary: 11/10/24 05:14 Transfer Ordered Notes: Transfer Location: [facility] sp4 Reason: Higher level of care sp4 Condition: Stable sp4 Problem: new sp4 Symptoms: have improved sp4 Accepting Physician: [facility]'s attending MD(11/10/24 14:30) ko1 Diagnosis - Respiratory failure, unspecified with hypercapnia sp4 - Acute on chronic respiratory failure, obesity hypoventilation syndrome, hypercarbia sp4 Forms: - Medication Reconciliation Form sp4 - SBAR form sp4 Signatures: Dispatcher [employer] EDAnali Pyle RN RN ko1 Rebekah Donis RN RN jj7 Kashmir Tipton MD MD sp4 Corrections: (The following items were deleted from the chart) 00:47 00:47 Chest Single View+RAD.RAD.BRZ ordered. EDMS EDMS 00:48 00:48 C-REACTIVE PROTEIN+C.LAB.BRZ ordered. EDMS EDMS 02:59 02:56 BiPap ([employer] Only) ordered. EDMS EDMS 03:43 00:46 [place] ordered. sp4 jj7 06:35 06:35 Arterial Blood Gas+RC.LAB.BRZ ordered. EDMS EDMS 14:30 05:14 [facility]'s attending sp4 ko1
--- NOTE | 2024-11-10 05:14 | ER ---
Nurse's Notes [facility] Name: Charity Jacob Age: 49 yrs Sex: Female : 1975 Arrival Date: 11/10/2024 Time: 00:41 Bed 2 Private MD: Diagnosis: Respiratory failure, unspecified with hypercapnia;Acute on chronic respiratory failure, obesity hypoventilation syndrome, hypercarbia Presentation: 11/10 00:41 Coronavirus screen: At this time, the client does not indicate any symptoms associated j with coronavirus-19. Ebola Screen: No symptoms or risks identified at this time. Initial Sepsis Screen: Does the patient meet any 2 criteria? RR > 20 per min. Yes Does the patient have a suspected source of infection? No. Patient's initial sepsis screen is negative. Risk Assessment: Do you want to hurt yourself or someone else? Patient reports no desire to harm self or others. Onset of symptoms was November 06, 2024. 00:41 Method Of Arrival: EMS: [facility] j7 00:41 Acuity: MAIKEL 3 jj7 Triage Assessment: 01:05 General: Appears in no apparent distress. uncomfortable, Behavior is calm, cooperative, jj7 appropriate for age. Pain: Denies pain. Respiratory: Reports shortness of breath at rest labored breathing since X3 DAYS Onset: The symptoms/episode began/occurred gradually, the patient has severe shortness of breath. 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 - Infectious Disease History:: Denies. - Social history:: Smoking status: Patient denies any tobacco usage or history of. Patient/guardian denies using alcohol, street drugs, IV drugs. - Family history:: not pertinent. Screenin:41 [facility] ED Fall Risk Assessment (Adult) History of falling in the last 3 months, jj7 including since admission Yes- fall prone (multiple falls) (3 pts) Confusion or Disorientation No (0 pts) Intoxicated or Sedated No (0 pts) Impaired Gait Yes (1 pt) Mobility Assist Device Used Yes (1 pt) Altered Elimination No (0 pt) Score/Fall Risk Level 3 or more points = High Risk Oriented to surroundings, Maintained a safe environment, Educated pt \T\ family on fall prevention, incl call for assistance when getting out of bed, Assessed \T\ reinforced patient's understanding of fall precautions. Abuse screen: Denies threats or abuse. Nutritional screening: No deficits noted. Tuberculosis screening: No symptoms or risk factors identified. Assessment: 00:41 Reassessment: SEE TRIAGE ASSESSMENT. jj7 02:00 Reassessment: Patient is alert, oriented x 3, equal unlabored respirations, skin jj7 warm/dry/pink. 03:00 Reassessment: PT SLEEPING. NO DISTRESS NOTED. VS STABLE. jj7 05:00 Reassessment: No changes from previously documented assessment. jj7 06:00 Reassessment: No changes from previously documented assessment. jj7 06:56 Reassessment: No changes from previously documented assessment. jj7 07:00 Respiratory: Patient placed on BiPAP: Inspiratory Pressure: 16 Expiratory (EPAP) ko1 Pressure: 8 FiO2%: 36 Respiratory Rate: 18. 07:58 Cardiovascular: Rhythm is regular. Respiratory: Airway is patent Respiratory effort is ko1 even, unlabored, Breath sounds are diminished bilaterally. 08:04 Reassessment: attempted to call report, was left on hold for 10 minutes, will try again.ko1 08:06 Reassessment: Reassessment: attempted to call report, no answer. ko1 08:08 Reassessment: attempted to call report, no answer, informed [facility] and [facility] nurse. ko1 14:00 Reassessment: [facility] here to transport patient. ko1 Vital Signs: 00:41 BP 166 / 68; Pulse 64; Resp 21; Temp 97; Pulse Ox 100% on 4 lpm NC; Weight 252.2 kg; jj7 Height 5 ft. 6 in. ; 02:09 BP 139 / 77; Pulse 62; Resp 15; Pulse Ox 100% on BiPAP; jj7 03:00 BP 127 / 66; Pulse 62; Resp 16; Pulse Ox 100% on BiPAP; cp4 04:00 BP 148 / 123; Pulse 60; Resp 15; Pulse Ox 100% on BiPAP; jj7 04:52 BP 107 / 39; Pulse 67; Resp 15; Pulse Ox 100% on BiPAP; cp4 06:00 BP 120 / 62; Pulse 60; Resp 15; Pulse Ox 100% on BiPAP; jj7 06:56 BP 118 / 57; Pulse 60; Resp 15; Pulse Ox 100% on BiPAP; jj7 08:11 BP 137 / 71; Pulse 68; Resp 18; Pulse Ox 100% on BiPAP; FiO2 36 %; ko1 09:25 BP 122 / 64; Pulse 61; Resp 15; Pulse Ox 100% on BiPAP; FiO2 36 %; ko1 10:06 BP 135 / 57; Pulse 59; Resp 18; Pulse Ox 100% on BiPAP; FiO2 36 %; ko1 12:30 BP 120 / 53; Pulse 70; Resp 18; Pulse Ox 93% on BiPAP; FiO2 36 %; ko1 13:15 BP 137 / 50; Pulse 73; Resp 18; Pulse Ox 94% on BiPAP; FiO2 36 %; ko1 14:17 BP 127 / 56; Pulse 71; Resp 19; Pulse Ox 94% on BiPAP; FiO2 36 %; ko1 00:41 Body Mass Index 89.74 (252.20 kg, 167.64 cm) jj7 ED Course: 00:41 Arm band placed on right wrist. Patient placed in an exam room, on a stretcher, on jj7 oxygen, on pulse oximetry. 00:41 Patient has correct armband on for positive identification. Bed in low position. Call jj7 light in reach. Side rails up X2. Provided Education on: USE OF CALL YOUNG. Warm blanket given. 00:42 Patient arrived in ED. lg3 00:45 Kashmir Tipton MD is Attending Physician. sp4 00:58 Rebekah Donis RN is Primary Nurse. jj7 01:05 Triage completed. jj7 01:08 XRAY Chest (1 view) In Process Unspecified. EDMS 01:39 Lactate w/ 2H reflex if indic. Sent. jj7 01:39 Blood Culture Adult (2) Sent. jj7 01:39 ABG Sent. jj7 01:40 Basic Metabolic Panel Sent. jj7 01:40 LFT's Sent. jj7 01:40 Magnesium Sent. jj7 01:40 NT PRO-BNP Sent. jj7 01:40 Troponin HS Sent. jj7 02:19 BIPAP Sent. jj7 07:58 No provider procedures requiring assistance completed. Patient transferred, IV remains ko1 in place. 08:09 transfer center called to escalate Nurse to Nurse. ty 08:18 Report given to RULA Cai at [facility]. ko1 08:29 [facility] ambulance called for pranav truck ETA 1015am. ty 09:00 Awaiting transportation. ko1 10:20 Summer with [facility] informed me there were complications with the truck for bc6 transportation and they were sending the truck to be worked on, she would update us as she receives them. 10:24 Sonido with [facility] declined the transfer due to safety precautions. bc6 11:00 Awaiting transportation. ko1 11:10 Called [facility] regarding patient transport, was advised they will need to be 6 seen by personnel to determine if it is safe to transport. 12:57 [facility] ambulance called advising Bariatric truck will be out of commision for a couple ty days and is not comfortable transferring patient due to patient safety. 13:00 Awaiting transportation, Awaiting: difficulty finding ambulance with the ability to ko1 carry patient due to her size. 13:03 [facility] called for patient transport. ty 13:14 [facility] enroute to attempt patient transfer. ty Administered Medications: 02:00 Drug: Rocephin - Rocephin (cefTRIAXone) IVPB 1 grams IVPB once over 30 mins; (mix in 50 jj7 mL NS) Route: IVPB; Infused Over: 30 mins; Site: right antecubital; 02:30 Follow up: IV Status: Completed infusion jj7 02:00 Drug: MethylPrednisoLONE IVP 125 mg IVP once Route: IVP; Site: left antecubital; jj7 02:30 Follow up: Response: Marked relief of symptoms jj7 02:00 Drug: Albuterol Inhalation 2.5 mg Inhalation every 20 minutes x3 Route: Inhalation; jj7 02:05 Drug: Albuterol Inhalation 2.5 mg Inhalation every 20 minutes x3 Route: Inhalation; jj7 02:10 Drug: Albuterol Inhalation 2.5 mg Inhalation every 20 minutes x3 Route: Inhalation; jj7 05:22 Follow up: Response: Marked relief of symptoms jj7 02:20 Drug: Furosemide IVP 40 mg IVP once; give over 2 minutes Route: IVP; Site: right jj7 antecubital; 03:00 Follow up: Response: Marked relief of symptoms jj7 03:43 Follow up: Response: Marked relief of symptoms jj7 Medication: 00:41 VIS not applicable for this client. jj7 Outcome: 05:14 ER care complete, transfer ordered by MD. barroso 14:17 Transferred by [facility]. ko1 14:17 Condition: stable 14:17 Instructed on the need for transfer, 14:30 Patient left the ED. ko1 Signatures: Dispatcher [employer] EDMS Yessenia Jaime RN RN lg3 Anali Khan RN RN ko1 Rebekah Donis RN RN jj7 Barb Mendoza Sergey, MD MD sp4 Samantha Flores Tylor ty Corrections: (The following items were deleted from the chart) 03:53 02:00 Reassessment: Patient is alert, oriented x 3, equal unlabored respirations, skin jj7 warm/dry/pink. jj7 08:09 08:06 Reassessment: koby koEric 12:43 00:41 Chief complaint: Patient states: SOB X3 DAYS. HAD A HEAVY PERIOD LAST WEEK AND jm13 THINKS THAT ALSO CONTRIBUTED TO HER SOB jj7
--- NOTE | 2024-11-10 06:21 | RAD REPORT ---
EXAM: XR Chest, 1 View CLINICAL HISTORY: Chest pain. TECHNIQUE: Frontal view of the chest. COMPARISON: XR Chest 09/05/2023. FINDINGS: Limitations: Technically limited secondary to underpenetration. Lungs: Mild central pulmonary vascular and interstitial prominence. Retrocardiac opacification. Pleural space: Unremarkable. No pneumothorax. Heart: The cardiac silhouette is moderately enlarged, stable, in part accentuated by portable techn ique and degree of inspiration. Mediastinum: Unremarkable. Normal mediastinal contour. Bones/joints: Unremarkable. No acute fracture. IMPRESSION: Findings which may be related to mild pulmonary congestion. Superimposed infection not excluded. Electronically signed by: Everton Payne MD 11/10/2024 01:24 AM [facility] Due to temporary technical issues with the PACS[employer] reporting system, reports are being ranjeet d by the in-house radiologist without review as a courtesy to ensure prompt reporting the interpreting radiologist is fully responsible for the content of the report. Transcribed Date/Time: 11/10/2024 6:21 AM
[2024-11-10 08:12] LABS: Arterial Blood Carboxyhemoglob 1.6 % (0-1.5); Blood Gas Oxyhemoglobin 94.8 % (94-97); Blood Gas THB 10.2 g/dl (12-18); Blood O2 Saturation 98.1 % (92-98.5)
[2024-11-10 14:41] VITALS: TEMP 97
[2024-11-10 14:53] VITALS: O2SAT 94
[2024-11-10 14:55] VITALS: BP 127/56
--- NOTE | 2024-11-14 11:22 | EKG ---
Test Date: 2024-11-10 Test Time: 01:39:00 Auditor/Quality: AF MEASUREMENT RESULTS: Intervals: Rate: 69 CA: 126 QRSD: 126 QT: 460 QTc: 492 [place]: P: CA: 126 QRS: 51 T: 45 INTERPRETIVE STATEMENTS: Sinus rhythm with premature supraventricular complexes with occasional premature ventricular complexes Nonspecific intraventricular block Abnormal ECG Compared to ECG 01/13/2024 19:45:55 Atrial premature complex(es) now present Ventricular premature complex(es) now present Junctional rhythm no longer present Intraventricular conduction delay no longer present Electronically Signed On 11-14-24 11:16:04 RECORD RETRIEVAL SPECIALIST by Willian Austin
== END 2024-11-10 14:30 | disposition short-term general hospital (02) ==
LOC: ER 00:41
DX: J96.22 Acute and chronic respiratory failure with hypercapnia (principal); E66.2 Morbid (severe) obesity with alveolar hypoventilation; Z99.81 Dependence on supplemental oxygen; I50.9 Heart failure, unspecified; I48.91 Unspecified atrial fibrillation
CPT/HCPCS: 93005; 87040 ×2; 85025; 81001; 80048; 36415; 83735; 85610; 80076; 83605; 84484; 83880; 86140; 71045; 94640; 82805 ×2; 99285; 36600 ×2; 94660; J1940; J7613; J2919; J0696